=== PATIENT | female | born 1950 | race Caucasian/White ===

== ENCOUNTER 2016-08-27 09:25 | Outpatient (RCR) | payer MEDICARE, BC ==
[~2016-08-27 09:25] MED LIST: ALN70T PO; ATEN-156 PO; LVT.025T PO; SMTR50T PO; SMV20T PO
--- OUTSIDE RECORDS SUMMARY | 2016-08-27 09:28 | XMS REPORT | Continuity of Care Document ---
Author Author [facility] Organization [facility] Address Unknown Phone Unavailable Care Team Providers Care Tubing Mill Operator Name Role Phone PAMELA COBB DO PCP Insurance Providers Payer Name Policy Number Subscriber Name Relationship [facility] [id number] Jacobo Rudolph Self / Same As Patient Problems No known problems or medical conditions. Medications Medication Dose Route Sig Days/Qty Instructions Order Date Discontinued Date Status Sumatriptan Succinate 50 Mg PO DIRECTED 11/22/10 Active Alendronate Sodium 70 Mg PO Tavarez@06 11/22/10 Active Simvastatin 20 Mg PO DAILY 11/22/10 Active Levothyroxine Sodium 1 Each PO DAILY 11/22/10 Active Atenolol 50 Mg PO DAILY 11/22/10 Active Social History No social history. Hospital Discharge Instructions No hospital discharge instructions. Plan of Care No plan of care. Functional Status No functional status results. Allergies, Adverse Reactions, Alerts Allergen Type Severity Reaction Status Last Updated No Known Drug Allergies Active 11/22/10 Immunizations No immunization records. Vital Signs No known vital signs results. Results Test Source Date Result Interp. Ref. Range Comments Alanine Aminotransferase (ALT/SGPT) August 02, 2013 9:04am 29 U/L L 30-65 Albumin August 02, 2013 9:04am 3.9 G/DL N 3.4-5.0 Alkaline Phosphatase August 02, 2013 9:04am 124 U/L N 50-136 Aspartate Amino Transf (AST/SGOT) August 02, 2013 9:04am 14 U/L L 15- 37 BUN/Creatinine Ratio August 02, 2013 9:04am 21 - Basophils # (Auto) August 02, 2013 9:04am 0.0 10^3/uL N 0.0-0.1 Basophils (%) (Auto) August 02, 2013 9:04am 0 % N 0-10 Blood Urea Nitrogen August 02, 2013 9:04am 19 MG/DL H 7-18 Calcium Level August 02, 2013 9:04am 8.9 MG/DL N 8.5-10.1 Carbon Dioxide Level August 02, 2013 9:04am 31 MMOL/L N 21-32 Chloride Level August 02, 2013 9:04am 102 MMOL/L N 101-110 Creatinine August 02, 2013 9:04am 0.9 MG/DL N 0.6-1.3 Eosinophils # (Auto) August 02, 2013 9:04am 0.1 10^3/uL N 0.0-0.3 Eosinophils (%) (Auto) August 02, 2013 9:04am 1 % N 0-10 Glucose Level August 02, 2013 9:04am 100 MG/DL N 74-106 Hematocrit August 02, 2013 9:04am 38 % N 35-52 Hemoglobin August 02, 2013 9:04am 12.7 G/DL N 11.5-16.0 Lymphocytes # (Auto) August 02, 2013 9:04am 1.5 X 10^3 N 1.0-4.0 Lymphocytes (%) (Auto) August 02, 2013 9:04am 19 % N 12-44 Mean Corpuscular Hemoglobin August 02, 2013 9:04am 30 PG N 25-34 Mean Corpuscular Hemoglobin Concent August 02, 2013 9:04am 33 G/DL N 32-36 Mean Corpuscular Volume August 02, 2013 9:04am 91 FL N 80-99 Mean Platelet Volume August 02, 2013 9:04am 8.6 FL N 7.4-10.4 Monocytes # (Auto) August 02, 2013 9:04am 0.6 X 10^3 N 0.0-1.0 Monocytes (%) (Auto) August 02, 2013 9:04am 7 % N 0-12 Neutrophils # (Auto) August 02, 2013 9:04am 5.6 X 10^3 N 1.8-7.8 Neutrophils (%) (Auto) August 02, 2013 9:04am 73 % N 42-75 Platelet Count August 02, 2013 9:04am 186 10^3/uL N 130-400 Potassium Level August 02, 2013 9:04am 4.5 MMOL/L N 3.6-5.0 Prothromb Time International Ratio August 28, 2011 12:00pm 1.6 H 0.8- 1.4 INTERPRETIVE DATASUGGESTED THERAPEUTIC RANGE FOR INR'S : VENOUS THROMBOSIS, PULMONARY EMBOLISM, OR PREVENTION OF SYSTEMIC EMBOLISM (EG. IN ATRIAL FIBRILLATION): 2.0 - 3.0 MECHANICAL PROSTHETIC HEART VALVES: 2.5 - 3.5* *NOTE: INR'S UP TO 4.5 MAY BE NECESSARY IN SELECTED GROUPS OF HIGH RISK PATIENTS. [employer] CONSENSUS CONFERENCE ON ANTITHROMBOTIC THERAPY (2000). Prothrombin Time August 28, 2011 12:00pm 19.0 SEC H 12.2-14.7 Comments to Merchandising Lead: COUMADIN 2.5MG DAILYSpecimen Comment: HH Red Blood Count August 02, 2013 9:04am 4.21 10^6/uL L 4.35-5.85 Red Cell Distribution Width August 02, 2013 9:04am 13.2 % N 10.0- 14.5 Sodium Level August 02, 2013 9:04am 136 MMOL/L N 135-145 TSH [place] Testing April 18, 2013 2:38pm 0.75 UIU/ML N 0.34-5.60 Thyroid Stimulating Hormone (TSH) December 20, 2010 1:45pm 0.72 UIU/ML N 0.34-5.60 PATIENT IN RAD 1ST. Total Bilirubin August 02, 2013 9:04am 0.3 MG/DL N 0.0-1.0 Total Protein August 02, 2013 9:04am 7.4 G/DL N 6.4-8.2 White Blood Count August 02, 2013 9:04am 7.7 10^3/uL N 4.3-11.0 Estimat Glomerular Filtration Rate August 02, 2013 9:04am > 60 - GFR INTERPRETIVE DATA UNITS FOR ESTIMATED GFR (eGFR): mL/min/1.73 M2 REFERENCE RANGE FOR ESTIMATED GFR (eGFR) eGFR NORMAL eGFR >60 MODERATELY DECREASED eGFR 30-59 SEVERLY DECREASED eGFR 15-29 KIDNEY FAILURE <15 (OR DIALYSIS) Procedures No known history of procedures. Encounters Encounter Location Date/Time Discharged Recurring Via [facility] 06/27/14 9:05am
[2016-08-27 09:41] LABS: BASOPHILS % (AUTO) 0 % (0-10); EOSINOPHILS # (AUTO) 0.1 10^3/uL (0.0-0.3); EOSINOPHILS % (AUTO) 1 % (0-10); LYMPHOCYTES # (AUTO) 1.8 X 10^3 (1.0-4.0); LYMPHOCYTES % (AUTO) 20 % (12-44); MEAN CORPUSCULAR HEMOGLOBIN 30 PG (25-34); MEAN CORPUSCULAR HGB CONC 33 G/DL (32-36); MEAN CORPUSCULAR VOLUME 90 FL (80-99); MEAN PLATELET VOLUME 9.6 FL (7.4-10.4); MONOCYTES # (AUTO) 0.6 X 10^3 (0.0-1.0); MONOCYTES % (AUTO) 7 % (0-12); NEUTROPHILS # (AUTO) 6.5 X 10^3 (1.8-7.8); NEUTROPHILS % (AUTO) 72 % (42-75); PLATELET COUNT 212 10^3/uL (130-400); RED CELL DISTRIBUTION WIDTH 13.1 % (10.0-14.5)
[2016-08-27 10:10] LABS: ALANINE AMINOTRANSFERASE 17 U/L (0-55); ALBUMIN 4.3 G/DL (3.2-4.5); ANION GAP 13 MMOL/L (5-14); ASPARTATE AMINO TRANSFERASE 14 U/L (5-34); BILIRUBIN,TOTAL 0.4 MG/DL (0.1-1.0); BLOOD UREA NITROGEN 18 MG/DL (7-18); BUN/CREATININE RATIO 20; CALCIUM 9.7 MG/DL (8.5-10.1); CARBON DIOXIDE 19 MMOL/L (21-32); CHLORIDE 106 MMOL/L (98-107); CREATININE SERUM 0.88 MG/DL (0.60-1.30); GFR ESTIMATED > 60; GLUCOSE 107 MG/DL (70-105); SODIUM 138 MMOL/L (135-145); TOTAL PROTEIN 6.9 G/DL (6.4-8.2)
== END 2016-11-25 | disposition home or self-care (01) ==
LOC: ONC 09:25
PROVIDERS: ATTEND Internal Medicine Hematology & Oncology
DX: C50.412 Malignant neoplasm of upper-outer quadrant of left female breast (principal); E03.9 Hypothyroidism, unspecified; I10 Essential (primary) hypertension; E78.5 Hyperlipidemia, unspecified; H81.09 Meniere's disease, unspecified ear; Z80.9 Family history of malignant neoplasm, unspecified; Z79.899 Other long term (current) drug therapy; Z17.0 Estrogen receptor positive status [ER+]
CPT/HCPCS: 36415; 80053; 84443; 85025; 99213

== ENCOUNTER → 2017-01-06 | Outpatient (CLI) | payer MEDICARE ==
--- OUTSIDE RECORDS SUMMARY | 2017-01-06 13:19 | XMS REPORT | Continuity of Care Document ---
Author Author [facility] Organization [facility] Address Unknown Phone Unavailable Care Team Providers Care Assignment Clerk Name Role Phone PAMELA COBB DO PCP Insurance Providers Payer Name Policy Number Subscriber Name Relationship [facility] [id number] Jacobo Rudolph Self / Same As Patient [...] SELECTED GROUPS OF HIGH RISK PATIENTS. [employer] [place] [employer] CONSENSUS CONFERENCE ON ANTITHROMBOTIC THERAPY (2000). Prothrombin Time August 28, 2011 12:00pm 19.0 SEC H 12.2-14.7 Comments to Oral And Maxillofacial Surgery: COUMADIN 2.5MG DAILYSpecimen Comment: HH Red Blood Count August 02, 2013 9:04am 4.21 10^6/uL L 4.35-5.85 Red Cell Distribution Width August 02, 2013 9:04am 13.2 % N 10.0- 14.5 Sodium Level August 02, 2013 9:04am 136 MMOL/L N 135-145 TSH [place] Testing April 18, 2013 2:38pm 0.75 UIU/ML [...] Encounters Encounter Location Date/Time Discharged Recurring Via [facility] 06/27/14 9:05am
--- NOTE | 2017-01-06 18:35 | Diagnostic Imaging Report ---
EXAMINATION: Digital Mammogram bilateral screening. INDICATION: Screening. COMPARISON: This study was compared to the prior exams of 01/02/2016, 01/01/2015, and 12/30/2013. At this time, there are no current complaints. The current study was also evaluated with a Computer Aided Detection (CAD) system. FINDINGS: The postsurgical changes involving the left breast seen previously are again evident and no different. There are a few benign-appearing calcifications in this region. There are scattered fibroglandular densities in the right breast, which could obscure a lesion. Overall, there has been no significant change. IMPRESSION: There is no evidence for malignancy. ACR BI-RADS Category 1: Negative. Result letter will be mailed to the patient. Note: At least 10% of breast cancer is not imaged by mammography. Dictated by: Dictated on workstation # [id number]
== END ==
LOC: RAD 09:05
PROVIDERS: ATTEND Internal Medicine Hematology & Oncology
DX: Z12.31 Encounter for screening mammogram for malignant neoplasm of breast (principal)
CPT/HCPCS: 77067

== ENCOUNTER 2017-02-25 09:40 | Outpatient (RCR) | payer MEDICARE ==
[2017-02-25 09:48] LABS: BASOPHILS % (AUTO) 0 % (0-10); EOSINOPHILS # (AUTO) 0.1 10^3/uL (0.0-0.3); EOSINOPHILS % (AUTO) 1 % (0-10); LYMPHOCYTES # (AUTO) 2.1 X 10^3 (1.0-4.0); LYMPHOCYTES % (AUTO) 22 % (12-44); MEAN CORPUSCULAR HEMOGLOBIN 30 PG (25-34); MEAN CORPUSCULAR HGB CONC 33 G/DL (32-36); MEAN CORPUSCULAR VOLUME 90 FL (80-99); MEAN PLATELET VOLUME 9.3 FL (7.4-10.4); MONOCYTES # (AUTO) 0.6 X 10^3 (0.0-1.0); MONOCYTES % (AUTO) 6 % (0-12); NEUTROPHILS # (AUTO) 6.5 X 10^3 (1.8-7.8); NEUTROPHILS % (AUTO) 71 % (42-75); PLATELET COUNT 215 10^3/uL (130-400); RED CELL DISTRIBUTION WIDTH 13.4 % (10.0-14.5); WHITE BLOOD COUNT 9.2 10^3/uL (4.3-11.0)
[2017-02-25 10:22] LABS: ALBUMIN 4.2 G/DL (3.2-4.5); BILIRUBIN,TOTAL 0.3 MG/DL (0.1-1.0); CREATININE SERUM 1.18 MG/DL (0.60-1.30); POTASSIUM 4.8 MMOL/L (3.6-5.0); TOTAL PROTEIN 6.9 G/DL (6.4-8.2)
[2017-02-25 10:43] LABS: THYROID STIMULATING HORMONE 0.59 UIU/ML (0.35-4.94)
== END 2017-05-26 | disposition home or self-care (01) ==
LOC: ONC 09:40
PROVIDERS: ATTEND Internal Medicine Hematology & Oncology
DX: C50.412 Malignant neoplasm of upper-outer quadrant of left female breast (principal); E03.9 Hypothyroidism, unspecified; I10 Essential (primary) hypertension; E78.5 Hyperlipidemia, unspecified; H81.09 Meniere's disease, unspecified ear; Z80.9 Family history of malignant neoplasm, unspecified; Z79.899 Other long term (current) drug therapy; Z17.0 Estrogen receptor positive status [ER+]
CPT/HCPCS: 36415; 80053; 84439; 84443; 85025; 99213

== ENCOUNTER 2017-09-02 14:34 | Outpatient (RCR) | payer MEDICARE | END 2017-12-01 | disposition home or self-care (01) | LOC: ONC 14:34 | PROVIDERS: ATTEND Internal Medicine Hematology & Oncology | DX: C50.412 Malignant neoplasm of upper-outer quadrant of left female breast (principal); E03.9 Hypothyroidism, unspecified; I10 Essential (primary) hypertension; E78.5 Hyperlipidemia, unspecified; Z80.9 Family history of malignant neoplasm, unspecified; Z79.899 Other long term (current) drug therapy; Z17.0 Estrogen receptor positive status [ER+] | CPT/HCPCS: 99213 ==

== ENCOUNTER → 2018-01-07 | Outpatient (CLI) | payer MEDICARE ==
--- NOTE | 2018-01-07 18:15 | Diagnostic Imaging Report ---
INDICATION: Routine screening. COMPARISON: Comparison is made with prior mammograms from 01/06/2017 and 01/02/2016. The current study was also evaluated with a Computer Aided Detection (CAD) system. FINDINGS: Scattered fibroglandular densities are identified bilaterally. The area of architectural distortion and postsurgical changes in the upper left breast are stable. There are some associated calcifications present. A nodular density in the retroareolar left breast is stable. No new mass or malignant appearing microcalcifications are seen. The axillae are unremarkable. IMPRESSION: No mammographic features suspicious for malignancy are identified. ACR BI-RADS Category 2: Benign findings. Result letter will be mailed to the patient. Note: At least 10% of breast cancer is not imaged by mammography. Dictated by: Dictated on workstation # [id number]
== END ==
LOC: RAD 10:18
PROVIDERS: ATTEND Internal Medicine Hematology & Oncology
DX: Z12.31 Encounter for screening mammogram for malignant neoplasm of breast (principal)
CPT/HCPCS: 77067

== ENCOUNTER 2018-03-03 13:00 | Outpatient (RCR) | payer MEDICARE | END 2018-06-01 | disposition home or self-care (01) | LOC: ONC 13:00 | PROVIDERS: ATTEND Internal Medicine Hematology & Oncology | DX: C50.412 Malignant neoplasm of upper-outer quadrant of left female breast (principal); E03.9 Hypothyroidism, unspecified; I10 Essential (primary) hypertension; E78.5 Hyperlipidemia, unspecified; Z80.9 Family history of malignant neoplasm, unspecified; Z79.899 Other long term (current) drug therapy; Z17.0 Estrogen receptor positive status [ER+] | CPT/HCPCS: 99213 ==

== ENCOUNTER → 2018-06-09 | Outpatient (CLI) | payer MEDICARE ==
[~2018-06-09] MED LIST changes: +GADOBUTROL 7.5 MMOL/7.5 ML (GADAVIST) VIAL IV ONE
[2018-06-09 11:39] LABS: BUN/CREATININE RATIO 20; CREATININE SERUM 0.83 MG/DL (0.60-1.30); GFR ESTIMATED > 60
--- NOTE | 2018-06-09 13:04 | Diagnostic Imaging Report ---
CLINICAL INDICATION: Patient with hearing loss. EXAM: CT scan of the IACs performed without IV contrast. Coronal reformatted images were created. COMPARISON: None. FINDINGS: Right temporal bone structures: There are areas of sclerosis involving the right mastoid region, which may be related to chronic sinusitis changes. The right mastoid air cells and middle ear regions are otherwise clear and unremarkable. Left temporal bone structures: Wall up left mastoidectomy changes are seen. There is thinning of the posterior wall of the left mastoidectomy cavity noted, which may be from postop changes. There is near-complete consolidation of the residual left mastoid air cells even extending into the inferior aspect of the left mastoidectomy cavity. There is no consolidation or fluid in the upper aspect of the mastoid cavity or in the aditus ad antrum. There are no definite erosive changes seen in the left temporal bone structures, but comparison to prior postop images would help better evaluate. There appears to be a tympanic tube on the left versus small perforation. High-riding bilateral jugular bulbs are noted. Otherwise, the remainder of the bilateral temporal bone structures are unremarkable. The right mastoid air cells are clear. The bilateral IACs, inner ears, middle ears, and external auditory canals are unremarkable. The bilateral oval and round windows are patent. There is no evidence of semicircular canal dehiscence. The visualized temporal bone portions of cranial nerve VII have normal appearance. No evidence of aberrant vascular structures. The vestibular aqueducts have normal appearance bilaterally. The visualized extracranial soft tissues and paranasal sinuses are unremarkable. IMPRESSION: 1: There are wall up left mastoidectomy changes. There is a large amount of near-complete consolidation and/or fluid in the residual left mastoid air cells and predominantly involving the inferior aspect of the left mastoid air cells and left mastoidectomy cavity. There are no definite erosive changes seen, but this would be better evaluated with recent postop temporal bone images for comparison. 2: There are likely chronic bony sinusitis changes with sclerosis of the right mastoid air cells. 3: High-riding bilateral jugular bulbs are noted. 4: Otherwise, the remainder of the temporal bone structures are unremarkable. The bilateral middle ear ossicles are unremarkable. Dictated by: Dictated on workstation # [id number]
--- NOTE | 2018-06-09 13:41 | Diagnostic Imaging Report ---
CLINICAL INDICATION: Patient is preparing for right ear cochlear implant. Patient has history of breast cancer 5 years ago with radiation treatments. Patient has history of left ear decompression. EXAMINATION: MRI of the brain/ IACs performed without and with 7 cc of Gadavist IV contrast. Sequences include sagittal T1 localizer, axial T2, axial flair, axial T1, coronal gradient echo, DWI, ADC map, axial T1 thin, axial T2 thin, coronal T1 thin, axial T2 3D FIESTA, axial T1 post contrast whole brain, coronal T1 fat-sat post IV contrast whole brain, sagittal T1 post IV contrast whole brain, axial T1 post IV contrast thin fat sat, and coronal T1 post IV contrast thin. COMPARISONS: CT scan of the IACs dated 06/09/2018. FINDINGS: TEMPORAL BONE STRUCTURES: There is high T2, low T1 signal fluid within the residual left mass toward air cells. There are wall up left mastoidectomy changes which are best seen on the comparison CT scan of the temporal bone structures. The internal auditory canal, otic capsule, middle ear, and temporal bone structures have normal anatomic appearance and are unremarkable. There is no abnormal fluid in the mastoid air cells seen. The visualized nerves VII and VIII within the IACs bilaterally and cisternal portions have normal appearance. CISTERNAL STRUCTURES: There is no cisternal mass seen. The remainder of the visualized cranial nerves in the basal cistern regions are unremarkable. BRAIN: There is no evidence of acute cerebral infarct, intracranial hemorrhage, or gross mass effect. There is a small area of nonenhancing fat in the right parasagittal subdural region of the posterior right frontal lobe. This is best seen on sagittal T1 post IV contrast sequence series 16, image 17. This lesion demonstrates fat saturation on the coronal T1 fat-sat post IV contrast sequence. This lesion measures 9 mm in greatest dimension which is in the AP dimension. There is no abnormal IV contrast enhancement. The brain parenchymal volume appears appropriate for patient's age. There are multiple focal and patchy areas of high T2 signal white matter changes in both cerebral hemispheres, likely representing chronic small vessel ischemic disease. There is normal gregory-white matter distinction. There is no significant midline shift or herniation. The [place] of [place] vascular structures show no gross abnormality as visualized. The pituitary gland, sella, and suprasellar regions are unremarkable as visualized. There is no evidence of hydrocephalus. The basal cisterns are unremarkable. The skull, extracranial soft tissue, and orbits are unremarkable. There is a small mucus retention cyst in the left maxillary sinus. Temporal bones show no significant abnormality. IMPRESSION: 1: There are wall up left mastoidectomy changes and large amounts of fluid in the residual left mastoid air cells. There is no abnormal IV contrast enhancement or retrocochlear mass seen. The remainder of the bilateral temporal bone structures are unremarkable. 2: Unremarkable MRI of the brain for age with mild chronic small vessel ischemic disease. 3: There is a roughly 9 mm fat containing dural based lesion in the posterior right frontal region which appears benign and demonstrates no IV contrast enhancement. Dictated by: Dictated on workstation # [id number]
== END ==
LOC: RAD 10:52
PROVIDERS: ATTEND Otolaryngology
DX: I67.82 Cerebral ischemia (principal); H95.192 Other disorders following mastoidectomy, left ear; G93.9 Disorder of brain, unspecified; Z85.3 Personal history of malignant neoplasm of breast
CPT/HCPCS: 36415; 70480; 70553; 82565; 84520

== ENCOUNTER 2018-09-01 12:45 | Outpatient (RCR) | payer MEDICARE ==
[~2018-09-01 12:45] MED LIST changes: -GADOBUTROL 7.5 MMOL/7.5 ML (GADAVIST) VIAL IV ONE
[2018-09-01 12:54] LABS: BASOPHILS % (AUTO) 0 % (0-10); EOSINOPHILS # (AUTO) 0.1 10^3/uL (0.0-0.3); EOSINOPHILS % (AUTO) 1 % (0-10); HEMATOCRIT 38 % (35-52); HEMOGLOBIN 12.8 G/DL (11.5-16.0); LYMPHOCYTES # (AUTO) 2.4 X 10^3 (1.0-4.0); LYMPHOCYTES % (AUTO) 29 % (12-44); MEAN CORPUSCULAR HEMOGLOBIN 30 PG (25-34); MEAN CORPUSCULAR HGB CONC 34 G/DL (32-36); MEAN CORPUSCULAR VOLUME 89 FL (80-99); MEAN PLATELET VOLUME 8.9 FL (7.4-10.4); MONOCYTES # (AUTO) 0.6 X 10^3 (0.0-1.0); MONOCYTES % (AUTO) 7 % (0-12); NEUTROPHILS # (AUTO) 5.3 X 10^3 (1.8-7.8); NEUTROPHILS % (AUTO) 63 % (42-75); PLATELET COUNT 222 10^3/uL (130-400); RED BLOOD COUNT 4.26 10^6/uL (4.35-5.85); RED CELL DISTRIBUTION WIDTH 13.3 % (10.0-14.5); WHITE BLOOD COUNT 8.4 10^3/uL (4.3-11.0)
[2018-09-01 13:18] LABS: ALANINE AMINOTRANSFERASE 19 U/L (0-55); ALBUMIN 4.5 GM/DL (3.2-4.5); ALKALINE PHOSPHATASE 80 U/L (40-136); BILIRUBIN,TOTAL 0.3 MG/DL (0.1-1.0); BUN/CREATININE RATIO 19; CALCIUM 10.1 MG/DL (8.5-10.1); CARBON DIOXIDE 26 MMOL/L (21-32); CHLORIDE 102 MMOL/L (98-107); CREATININE SERUM 0.83 MG/DL (0.60-1.30); GFR ESTIMATED > 60; GLUCOSE 102 MG/DL (70-105); POTASSIUM 3.9 MMOL/L (3.6-5.0); SODIUM 139 MMOL/L (135-145); TOTAL PROTEIN 7.2 GM/DL (6.4-8.2)
== END 2018-11-30 | disposition home or self-care (01) ==
LOC: ONC 12:45
PROVIDERS: ATTEND Internal Medicine Hematology & Oncology
DX: C50.412 Malignant neoplasm of upper-outer quadrant of left female breast (principal); E03.9 Hypothyroidism, unspecified; I10 Essential (primary) hypertension; E78.5 Hyperlipidemia, unspecified; Z80.9 Family history of malignant neoplasm, unspecified; Z79.899 Other long term (current) drug therapy; Z17.0 Estrogen receptor positive status [ER+]
CPT/HCPCS: 36415; 80053; 85025; 99213

== ENCOUNTER → 2019-01-07 | Outpatient (CLI) | payer MEDICARE ==
--- NOTE | 2019-01-07 11:09 | Diagnostic Imaging Report ---
INDICATION: History of breast CA. COMPARISON: 01/08/2018 and 01/07/2017. TECHNIQUE: 2D and 3D bilateral screening mammography was performed with CAD. FINDINGS: Scattered fibroglandular densities are identified bilaterally. Post therapeutic changes with architectural distortion in the upper slightly outer left breast are again noted. There has been some increase in dystrophic calcifications at the lumpectomy site since the prior study. The nodular density in the retroareolar left breast is again noted. There are some calcifications in the left breast at posterior depth at the nipple line on the MLO view which may be slightly increasing since the prior exam. These appear to be just posterior to the lumpectomy site on the CC view. Additional views are recommended including magnification views. No new mass is identified. The axillae are unremarkable. IMPRESSION: Slight increase in calcifications in the posterior left breast, as described. Additional views including magnification and ML views are recommended for further evaluation. ACR BI-RADS Category 0: Incomplete. (Needs additional imaging evaluation). Result letter will be mailed to the patient. Note: At least 10% of breast cancer is not imaged by mammography. Dictated by: Dictated on workstation # [id number]
== END ==
LOC: RAD 09:47
PROVIDERS: ATTEND Internal Medicine Hematology & Oncology
DX: Z12.31 Encounter for screening mammogram for malignant neoplasm of breast (principal); C50.412 Malignant neoplasm of upper-outer quadrant of left female breast; H81.03 Meniere's disease, bilateral; E78.00 Pure hypercholesterolemia, unspecified; M81.8 Other osteoporosis without current pathological fracture
CPT/HCPCS: 77067

== ENCOUNTER → 2019-01-13 | Outpatient (CLI) | payer MEDICARE ==
[~2019-01-13] MED LIST changes: +AMLO5TAB9 PO; +ATEN50TA PO; +CA C1TAB70 PO; +CALC-904 PO; +CHOL400C9 PO; +DOCU-143 PO; +FOLI0.8T PO; +FURO20TA4 PO; +HYDR-3812 PO; +LATA2.5D5 OU; +LEVO25TA5 PO; +POTA10TA10 PO; +SIMV20TA3 PO; +TIMO5DRO5 OU
--- NOTE | 2019-01-13 21:28 | Diagnostic Imaging Report ---
EXAMINATION: Unilateral diagnostic left mammogram. The current study was also evaluated with a Computer Aided Detection (CAD) system. INDICATION: Abnormal mammogram. FINDINGS: The screening mammogram performed on 01/07/2019 noted a group of microcalcifications deep in the left breast posterior to the nipple line. These calcifications did seem to have increased in number compared to the previous exam of 01/07/2018. On this study, the compression/magnification views of the area of concern show that there are two groups of microcalcifications in this area. These may be slightly more numerous than on the previous exam. These calcifications do not have a particularly threatening appearance and I do suspect that they are most likely benign. Even so, they are technically indeterminate. Therefore, a stereotactic biopsy will be recommended to exclude malignancy. IMPRESSION: 1. A stereotactic biopsy will be recommended for further evaluation of the indeterminate microcalcifications. 2. These results were discussed with Dr. Shaun Goodwin. ACR BI-RADS Category 4: Suspicious abnormality. Result letter will be mailed to the patient. Note: At least 10% of breast cancer is not imaged by mammography. Dictated by: Dictated on workstation # [id number]
== END ==
LOC: RAD 08:08
PROVIDERS: ATTEND Internal Medicine Hematology & Oncology
DX: R92.0 Mammographic microcalcification found on diagnostic imaging of breast (principal)

== ENCOUNTER 2019-01-17 09:54 | Inpatient (IN) | payer MEDICARE ==
[~2019-01-17] VITALS: Ht 175.3 cm; Wt 79.4 kg
[~2019-01-17 09:54] MED LIST changes: -AMLO5TAB9 PO; -ATEN50TA PO; -CA C1TAB70 PO; -CALC-904 PO; -CHOL400C9 PO; -DOCU-143 PO; -FOLI0.8T PO; -FURO20TA4 PO; -HYDR-3812 PO; -LATA2.5D5 OU; -LEVO25TA5 PO; -POTA10TA10 PO; -SIMV20TA3 PO; -TIMO5DRO5 OU
--- NOTE | 2019-01-17 10:29 | ED Fall/Injury ---
General Chief Complaint: Trauma-Non Activation Stated Complaint: FALL Nursing Triage Note: PT REPORTS FALLING AROUND 0700 THIS MORNING IN THE SHOWER. PT DENIES LOC OF HITTING HEAD. PT COMPLAINING OF MIDDLE-LOWER BACK PAIN AND SOME LEFT SHOULDER PAIN. PT TOOK 1 5/325MG HYDROCODONE AROUND 0900. (DEE GIRON MED STUDENT) History of Present Illness Date Seen by Provider: Jan 17, 2019 Time Seen by Provider: 09:58 Initial Comments Mrs Rudolph is a pleasant 68 year old female presenting to the ED s/p fall. Patient states at approximately 7:00 this am she was getting out of the shower when she slipped on a wet patch and fell back onto the edge of the tub. She struck her left upper back on the tub. She denies dizziness, lightheadedness, or loss of consciousness at the time of the fall. She denies hitting her head, buttock, upper or lower extremities. After the fall she experienced left upper back pain 8/10, as well as shortness of air due to pain with inhalation. She states that at approximately 9:00 am she took one hydrocodone pill for pain, which improved it to 5/10 at rest, 8/10 with movement or deep breath. She has a history of bilateral knee replacement as well as meniere disease. She states that she usually uses a gripping mat in the shower, but did not put it down today, and failed to reach the shower-side railing in time. Location Injury Occurred: at home in [facility] Occurred: this morning (occured at 07:00 this am) Injuries/Pain Location: back (left upper back) Context: slipped (slipped on wet floor stepping out of the shower) Loss of Consciousness: no loss of consciousness Modifying Factors: Worse With Movement, Worse With Other (deep breath) Associated Symptoms (Fall): Shortness of Air (due to pain with inhilation ) ( DEE GIRON MED STUDENT) Allergies and Home Medications Allergies Coded Allergies: No Known Drug Allergies (Unverified , 01/17/19) Home Medications Amlodipine Besylate 5 Mg Tablet, 5 MG PO DAILY, (Reported) Atenolol 50 Mg Tablet, 50 MG PO DAILY, (Reported) Calcium Carb/D3/Magnesium/Zinc 1 Each Tablet, 1 TAB PO DAILY, (Reported) Cholecalciferol (Vitamin D3) 400 Unit Capsule, 400 UNIT PO DAILY, (Reported) Folic Acid 0.8 Mg Tablet, 0.8 MG PO DAILY, (Reported) Furosemide 20 Mg Tablet, 20 MG PO DAILY, (Reported) Latanoprost 2.5 Ml Drops, 1 DROP OU HS, (Reported) Levothyroxine Sodium 25 Mcg Tablet, 25 MCG PO DAILY, (Reported) Potassium Chloride 10 Meq Tablet.er, 10 MEQ PO DAILY, (Reported) Simvastatin 20 Mg Tablet, 20 MG PO HS, (Reported) Timolol Maleate 5 Ml Drops, 1 DROP OU BID, (Reported) Patient Home Medication List Home Medication List Reviewed: Yes (DEE GIRON STUDENT) Review of Systems Review of Systems Constitutional: no symptoms reported Eyes: No Symptoms Reported Ears, Nose, Mouth, Throat: no symptoms reported Respiratory: short of breath Cardiovascular: no symptoms reported Gastrointestinal: no symptoms reported Genitourinary: no symptoms reported : No Musculoskeletal: back pain (left upper back), other (left shoulder pain) Skin: no symptoms reported Psychiatric/Neurological: No Symptoms Reported (DEE GIRON STUDENT) Past Aicnesv-Hneakc-Etpwqn Hx Patient Social History Alcohol Use: Denies Use Recreational Drug Use: No Smoking Status: Never a Smoker Recent Foreign Travel: No Contact w/Someone Who Travel: No Recent Infectious Disease Expo: No Recent Hopitalizations: No (DEE GIRON STUDENT) Seasonal Allergies Seasonal Allergies: No (DEE GIRON) Past Medical History Surgeries: Yes Breast, Eye Surgery, Orthopedic, Thyroidectomy Respiratory: No Cardiac: Yes Hypertension Neurological: No Genitourinary: No Gastrointestinal: No Musculoskeletal: No Endocrine: No HEENT: No Cancer: Yes Breast Psychosocial: No Integumentary: No Blood Disorders: No (DEE GIRON STUDENT) Physical Exam Vital Signs Vital Signs - First Documented 01/17/19 09:58 Temp 97.6 Pulse 74 Resp 16 B/P (MAP) 166/87 (113) Pulse Ox 100 (GIO KAY MD) Vital Signs Capillary Refill : Less Than 3 Seconds (DEE GIRON STUDENT) Height, Weight, BMI Height: 5'9.00" Weight: 175lbs. oz. 79.953326bk; BMI Method:Stated General Appearance: mild distress HEENT: PERRL/EOMI Neck: non-tender, full range of motion, supple Cardiovascular: regular rate, rhythm, no gallop, no murmur Respiratory: crackles (over left upper and middle lobes) Back: normal inspection (no erythema, edema, or abrasions), no CVA tenderness, no vertebral tenderness, other (tenderness to palpation over left upper back) Extremities: normal range of motion (normal through shoulders, elbows, wrists, hips, knees, and ankles), non-tender (non tender to palpation over the shoulders , elbows, wrists, hips, knees, and ankles), normal inspection Neurologic/Psychiatric: alert, normal mood/affect, oriented x 3 Skin: normal color, warm/dry (DEE GIRON MED STUDENT) Progress/Results/Core Measures Results/Orders Lab Results Laboratory Tests Test 01/17/19 12:42 Range/Units White Blood Count 15.3 H 4.3-11.0 10^3/uL Red Blood Count 4.60 4.35-5.85 10^6/uL Hemoglobin 13.3 11.5-16.0 G/DL Hematocrit 42 35-52 % Mean Corpuscular Volume 90 80-99 FL Mean Corpuscular Hemoglobin 29 25-34 PG Mean Corpuscular Hemoglobin Concent 32 32-36 G/DL Red Cell Distribution Width 12.8 10.0-14.5 % Platelet Count 205 130-400 10^3/uL Mean Platelet Volume 9.3 7.4-10.4 FL Neutrophils (%) (Auto) 88 H 42-75 % Lymphocytes (%) (Auto) 8 L 12-44 % Monocytes (%) (Auto) 4 0-12 % Eosinophils (%) (Auto) 0 0-10 % Basophils (%) (Auto) 0 0-10 % Neutrophils # (Auto) 13.4 H 1.8-7.8 X 10^3 Lymphocytes # (Auto) 1.3 1.0-4.0 X 10^3 Monocytes # (Auto) 0.6 0.0-1.0 X 10^3 Eosinophils # (Auto) 0.0 0.0-0.3 10^3/uL Basophils # (Auto) 0.0 0.0-0.1 10^3/uL Neutrophils % (Manual) 86 % Lymphocytes % (Manual) 9 % Monocytes % (Manual) 5 % Eosinophils % (Manual) 0 % Basophils % (Manual) 0 % Band Neutrophils 0 % Blood Morphology Comment NORMAL Sodium Level 137 135-145 MMOL/L Potassium Level 4.1 3.6-5.0 MMOL/L Chloride Level 101 98-107 MMOL/L Carbon Dioxide Level 25 21-32 MMOL/L Anion Gap 11 5-14 MMOL/L Blood Urea Nitrogen 20 H 7-18 MG/DL Creatinine 0.83 0.60-1.30 MG/DL Estimat Glomerular Filtration Rate > 60 BUN/Creatinine Ratio 24 Glucose Level 120 H 70-105 MG/DL Calcium Level 10.5 H 8.5-10.1 MG/DL Corrected Calcium 8.5-10.1 MG/DL Total Bilirubin 0.4 0.1-1.0 MG/DL Aspartate Amino Transf (AST/SGOT) 23 5-34 U/L Alanine Aminotransferase (ALT/SGPT) 17 0-55 U/L Alkaline Phosphatase 94 40-136 U/L Total Protein 7.6 6.4-8.2 GM/DL Albumin 4.8 H 3.2-4.5 GM/DL (GIO KAY MD) My Orders Orders - GIO KAY MD Chest Pa/Lat (2 View) (01/17/19 10:24) Ribs, Left 2-3 Views (01/17/19 10:24) Incentive Spirometry Initial (01/17/19 12:11) Incentive Spirometry (Nursing) Q2H (01/17/19 12:11) Cbc With Automated Diff (01/17/19 12:36) Comprehensive Metabolic Panel (01/17/19 12:36) Ct Chest/Abdomen/Pelvis W (01/17/19 12:36) Manual Differential (01/17/19 12:42) Iohexol Injection (Omnipaque 350 Mg/Ml 1 (01/17/19 13:15) Received Contrast (Contrast Received) (01/17/19 13:15) Ns (Ivpb) (Sodium Chloride 0.9% Ivpb Bag (01/17/19 13:15) (GIO KAY MD) Medications Given in ED Current Medications Medications Dose Ordered Sig/Milton Route Start Time Stop Time Status Last Admin Dose Admin Iohexol 100 ml ONCE ONCE IV 01/17/19 13:15 3/4/19 13:16 DC 01/17/19 13:20 100 ML Sodium Chloride 100 ml ONCE ONCE IV 01/17/19 13:15 01/17/19 13:16 DC 01/17/19 13:20 80 ML (GIO KAY MD) Vital Signs/I&O 01/17/19 09:58 Temp 97.6 Pulse 74 Resp 16 B/P (MAP) 166/87 (113) Pulse Ox 100 (GIO KAY MD) Blood Pressure Mean: 113 Progress Progress Note #1: Time: 12:38 Progress Note Patient was personally seen by me along with Dee Giron, MS4. I agree with his history, assessment, exam, and documentation. In addition to MS4 history, it should be noted patient is also scheduled to have a left breast biopsy performed. She has history of breast cancer and has a lump that needs further evaluation. Exam: Gen.: Alert, oriented, no acute distress HEENT normocephalic and atraumatic Lungs: Faint crackles throughout the left chest, no wheezes, good air movement, normal effort Heart: Regular rate and rhythm without murmur Back: Tenderness to palpation over the left posterior lateral lower chest wall. No visible injury on the skin. Neuro/psych: Alert, oriented, no focal deficits Patient was allowed to take an additional hydrocodone that she had with her. Case was discussed with Dr. Prescott. He requested a CT of the abdomen be performed to evaluate the spleen given the location of fractures in the left posterior chest wall. Labs and CT have been ordered. Progress Note #2: Time: 14:[address] scan viewed by me and report reviewed. There were actually numerous rib fractures identified on CT scan, probably 9 in total. Two of them, ribs 8 and 9 , are segmental fractures. Case was again discussed with Dr. Prescott. Given the quantity of fractures and the fact that to our segmental, admission is appropriate for this patient. Dr. Prescott has graciously accepted the patient and will write admission orders. There was an incidental finding of a thyroid mass as well. This can be evaluated further with ultrasound as well. (GIO KAY MD) Diagnostic Imaging Diagonstic Imaging: Xray Plain Films/CT/US/NM/MRI: chest Comments Chest x-ray viewed by me and report reviewed. See report below: NAME: [facility] REC#: [id number] PT STATUS: REG ER : 1950 PHYSICIAN: GIO KAY MD ADMIT DATE: 01/17/19/ER Signed Date of Exam: 01/17/19 CHEST PA/LAT (2 VIEW) INDICATION: Status post fall earlier in the day in shower. Pain.. TECHNIQUE: Two view chest 10:54 AM CORRELATION STUDY: None FINDINGS: The heart size, mediastinal configuration and pulmonary vasculature are within normal limits. There are displaced multiple left posterior lateral rib fractures involving at least the seventh, eighth and ninth ribs. There is atelectasis or contusion about the left lung base and small left pleural effusion. No definitive pneumothorax. Accentuated thoracic kyphosis and degenerative changes thoracic spine. IMPRESSION: 1. Displaced left posterior lateral rib fracture deformities with associated adjacent atelectasis and/or contusion along with small effusion. No definitive pneumothorax. Dictated by: Dictated on workstation # [id number] Dict: 01/17/19 1113 Trans: 01/17/19 1156 Interpreted by: PHILIP RAMOS DO Electronically signed by: PHILIP RAMOS DO 01/17/19 1156 Diagonstic Imaging: Xray Plain Films/CT/US/NM/MRI: chest Comments Left rib x-rays reviewed by me and report reviewed. See report below: NAME: JACOBO RUDOLPH [facility] REC#: [id number] PT STATUS: REG ER : 1950 PHYSICIAN: GIO KAY MD ADMIT DATE: 01/17/19/ER Signed Date of Exam: 01/17/19 RIBS, LEFT 2-3 VIEWS INDICATION: Status post fall earlier in the day. Pain. TECHNIQUE: 3 views left ribs, 10:56 AM. CORRELATION STUDY: None FINDINGS: There are multiple displaced left, predominantly lateral lower rib fractures. This involves at least the seventh, eighth, ninth and likely 10th ribs. Some of these fractures are displaced slightly greater than the width of the rib. There is what appears to be associated atelectasis or contusion and effusion of the left lung base. No definitive pneumothorax. IMPRESSION: 1. Multiple displaced left lower lateral rib fracture deformities. Associated atelectasis and/or contusion left lung base as well as small pleural effusion. Dictated by: Dictated on workstation # [id number] Dict: 01/17/19 1147 Trans: 01/17/19 1156 Interpreted by: PHILIP RAMOS DO Electronically signed by: PHILIP RAMOS DO 01/17/19 1156 Diagonstic Imaging: CT Plain Films/CT/US/NM/MRI: chest, abdomen, pelvis Comments CT chest, abdomen and pelvis viewed by me and report reviewed. Discussed and images reviewed with the radiologist. Discussed with Dr. Prescott as well. See report below: NAME: JACOBO RUDOLPH [facility] REC#: [id number] PT STATUS: REG ER : 1950 PHYSICIAN: GIO KAY MD ADMIT DATE: 01/17/19/ER Draft Date of Exam:01/17/19 CT CHEST/ABDOMEN/PELVIS W PROCEDURE: CT chest, abdomen, and pelvis with contrast. TECHNIQUE: Multiple contiguous axial images were obtained through the chest, abdomen, and pelvis after the administration of intravenous contrast. INDICATION: Fall with mid and low back pain as well as left shoulder pain. COMPARISON: No prior studies are available for comparison. FINDINGS: CT CHEST: There is a solid-appearing mass arising from the left lobe of the thyroid measuring 3.3 cm AP diameter. Dedicated thyroid ultrasound would be useful on a nonemergent basis for further evaluation. No definite mediastinal hematoma or great vessel injury is seen. No pericardial fluid is identified. Numerous left-sided rib fractures are identified. There are fractures involving left sixth through twelfth ribs. Fractures are noted laterally as well as posteriorly. Segmental fractures appear to involve the eighth and ninth ribs. Several ribs appear to be displaced. There is some small amount of high-density fluid within the left lung base consistent with very small hemothorax. No pneumothorax is seen. Right lung is clear. There is a small amount of subcutaneous gas noted in the tissues adjacent to rib fractures. The right-sided ribs are unremarkable. IMPRESSION: 1. Left sixth through twelfth rib fractures with trace adjacent left hemothorax. No pneumothorax or parenchymal contusion is identified. No mediastinal hematoma or great vessel injury is identified. CT ABDOMEN AND PELVIS: No focal liver or splenic laceration is seen. There is mild dilatation of the gallbladder. There appears to be stone in the region of the gallbladder neck. No biliary duct dilatation is seen. The pancreas is unremarkable. No adrenal mass is detected. Kidneys are unremarkable. Aorta is non-aneurysmal. Bowel loops are normal caliber. There is sigmoid diverticulosis without evidence of acute diverticulitis. Bladder is unremarkable. Bony structures appear nonacute. IMPRESSION: 1. Cholelithiasis and mild gallbladder distention. 2. No evidence of abdominal or pelvic visceral injury. 3. Left thyroid mass. Dedicated thyroid ultrasound on nonemergent basis would be recommended for better characterization. Dictated on workstation # [id number] Dict: 01/17/19 1339 Trans: 01/17/19 1438 [id number] Interpreted by: MARTÍNEZ HERR MD (GIO KAY MD) Departure Communication (Admissions) Time/Spoke to Admitting Phy: 14:18 Dr. Prescott (GIO KAY MD) Impression Primary Impression: Multiple rib fractures Qualified Codes: S22.42XA - Multiple fractures of ribs, left side, initial encounter for closed fracture Additional Impressions: Fall from slipping Qualified Codes: W01.0XXA - Fall on same level from slipping, tripping and stumbling without subsequent striking against object, initial encounter Pulmonary contusion Qualified Codes: S27.321A - Contusion of lung, unilateral, initial encounter Thyroid mass Disposition: 01 HOME, SELF-CARE Condition: Improved Departure-Patient Inst. Decision time for Depature: 12:13 (GIO KAY MD) Referrals: JOSE PRESCOTT MD, ADAM S DO (PCP/Family) Primary Care Physician Patient Instructions: Rib Fractures in Adults Add. Discharge Instructions: Exercise deep breathing with incentive spirometry at least 10 times per hour while awake. Stay ahead of your pain to promote relaxed deep breathing. Use a stool softener such as Colace while on hydrocodone to prevent constipation. Follow-up with either Dr. Prescott later this week for repeat examination. You may additionally follow-up with your primary care provider if you choose. Return to care promptly or call 911 if you have worsening symptoms such as progressive shortness of breath, uncontrolled pain, fever, etc. All discharge instructions reviewed with patient and/or family. Voiced understanding. DEE GIRON STUDENT Jan 17, 2019 10:29 am GIO KAY MD Jan 17, 2019 12:17 pm
--- NOTE | 2019-01-17 11:17 | Diagnostic Imaging Report ---
INDICATION: Status post fall earlier in the day in shower. Pain.. TECHNIQUE: Two view chest 10:54 AM CORRELATION STUDY: None FINDINGS: The heart size, mediastinal configuration and pulmonary vasculature are within normal limits. There are displaced multiple left posterior lateral rib fractures involving at least the seventh, eighth and ninth ribs. There is atelectasis or contusion about the left lung base and small left pleural effusion. No definitive pneumothorax. Accentuated thoracic kyphosis and degenerative changes thoracic spine. IMPRESSION: 1. Displaced left posterior lateral rib fracture deformities with associated adjacent atelectasis and/or contusion along with small effusion. No definitive pneumothorax. Dictated by: Dictated on workstation # [id number]
--- NOTE | 2019-01-17 11:50 | Diagnostic Imaging Report ---
INDICATION: Status post fall earlier in the day. Pain. TECHNIQUE: 3 views left ribs, 10:56 AM. CORRELATION STUDY: None FINDINGS: There are multiple displaced left, predominantly lateral lower rib fractures. This involves at least the seventh, eighth, ninth and likely 10th ribs. Some of these fractures are displaced slightly greater than the width of the rib. There is what appears to be associated atelectasis or contusion and effusion of the left lung base. No definitive pneumothorax. IMPRESSION: 1. Multiple displaced left lower lateral rib fracture deformities. Associated atelectasis and/or contusion left lung base as well as small pleural effusion. Dictated by: Dictated on workstation # [id number]
[2019-01-17] MEDS ORDERED: DOCU-143 PO (12:16)
[2019-01-17] MEDS ORDERED: HYDR-3812 PO (12:16)
--- NOTE | 2019-01-17 12:45 | NUR ---
INCENTIVE SPIROMETRY EDUCATION PROVIDED BY RT.
[2019-01-17 12:50] LABS: BASOPHILS % (AUTO) 0 % (0-10); EOSINOPHILS % (AUTO) 0 % (0-10); HEMATOCRIT 42 % (35-52); HEMOGLOBIN 13.3 G/DL (11.5-16.0); LYMPHOCYTES # (AUTO) 1.3 X 10^3 (1.0-4.0); LYMPHOCYTES % (AUTO) 8 % (12-44); MEAN CORPUSCULAR HEMOGLOBIN 29 PG (25-34); MEAN CORPUSCULAR HGB CONC 32 G/DL (32-36); MEAN CORPUSCULAR VOLUME 90 FL (80-99); MEAN PLATELET VOLUME 9.3 FL (7.4-10.4); MONOCYTES # (AUTO) 0.6 X 10^3 (0.0-1.0); MONOCYTES % (AUTO) 4 % (0-12); NEUTROPHILS # (AUTO) 13.4 X 10^3 (1.8-7.8); NEUTROPHILS % (AUTO) 88 % (42-75); PLATELET COUNT 205 10^3/uL (130-400); RED CELL DISTRIBUTION WIDTH 12.8 % (10.0-14.5); WHITE BLOOD COUNT 15.3 10^3/uL (4.3-11.0)
[2019-01-17 13:07] LABS: ALANINE AMINOTRANSFERASE 17 U/L (0-55); ALBUMIN 4.8 GM/DL (3.2-4.5); ALKALINE PHOSPHATASE 94 U/L (40-136); BILIRUBIN,TOTAL 0.4 MG/DL (0.1-1.0); BUN/CREATININE RATIO 24; CALCIUM 10.5 MG/DL (8.5-10.1); CARBON DIOXIDE 25 MMOL/L (21-32); CHLORIDE 101 MMOL/L (98-107); CREATININE SERUM 0.83 MG/DL (0.60-1.30); GFR ESTIMATED > 60; GLUCOSE 120 MG/DL (70-105); POTASSIUM 4.1 MMOL/L (3.6-5.0); SODIUM 137 MMOL/L (135-145); TOTAL PROTEIN 7.6 GM/DL (6.4-8.2)
[2019-01-17] MEDS ORDERED: NS 100 ML (IVPB) BAG IV ONE (13:15)
[2019-01-17] MEDS ORDERED: RECEIVED CONTRAST 20 ML VIAL IV SCH (13:15)
[2019-01-17] MEDS ORDERED: IOHEXOL 350 MG/ML 100 ML (OMNIPAQUE 350) VIAL IV ONE (13:15)
[2019-01-17 13:28] LABS: BAND NEUTROPHILS 0 %; BASOPHILS % (MANUAL) 0 %; EOSINOPHILS % (MANUAL) 0 %; LYMPHOCYTES % (MANUAL) 9 %; MONOCYTES % (MANUAL) 5 %; NEUTROPHILS % (MANUAL) 86 %; RBC MORPH NORMAL
--- NOTE | 2019-01-17 14:10 | Diagnostic Imaging Report ---
PROCEDURE: CT chest, abdomen, and pelvis with contrast. TECHNIQUE: Multiple contiguous axial images were obtained through the chest, abdomen, and pelvis after the administration of intravenous contrast. INDICATION: Fall with mid and low back pain as well as left shoulder pain. COMPARISON: No prior studies are available for comparison. FINDINGS: CT CHEST: There is a solid-appearing mass arising from the left lobe of the thyroid measuring 3.3 cm AP diameter. Dedicated thyroid ultrasound would be useful on a nonemergent basis for further evaluation. No definite mediastinal hematoma or great vessel injury is seen. No pericardial fluid is identified. Numerous left-sided rib fractures are identified. There are fractures involving left sixth through twelfth ribs. Fractures are noted laterally as well as posteriorly. Segmental fractures appear to involve the eighth and ninth ribs. Several ribs appear to be displaced. There is some small amount of high-density fluid within the left lung base consistent with very small hemothorax. No pneumothorax is seen. Right lung is clear. There is a small amount of subcutaneous gas noted in the tissues adjacent to rib fractures. The right-sided ribs are unremarkable. IMPRESSION: 1. Left sixth through twelfth rib fractures with trace adjacent left hemothorax. No pneumothorax or parenchymal contusion is identified. No mediastinal hematoma or great vessel injury is identified. CT ABDOMEN AND PELVIS: No focal liver or splenic laceration is seen. There is mild dilatation of the gallbladder. There appears to be stone in the region of the gallbladder neck. No biliary duct dilatation is seen. The pancreas is unremarkable. No adrenal mass is detected. Kidneys are unremarkable. Aorta is non-aneurysmal. Bowel loops are normal caliber. There is sigmoid diverticulosis without evidence of acute diverticulitis. Bladder is unremarkable. Bony structures appear nonacute. IMPRESSION: 1. Cholelithiasis and mild gallbladder distention. 2. No evidence of abdominal or pelvic visceral injury. 3. Left thyroid mass. Dedicated thyroid ultrasound on nonemergent basis would be recommended for better characterization. Dictated by: Dictated on workstation # [id number]
--- OUTSIDE RECORDS SUMMARY | 2019-01-17 15:01 | XMS REPORT | Clinical Summary ---
Author Author [facility] Organization [facility] Address Unknown Phone Unavailable Care Team Providers Care Manager State Name Role Phone Luciano Olson PCP Source Comments Some departments are not documenting in the electronic medical record. If you do not see the information that you expected, contact Release of Information in the Health Information Management department at [phone] for further assistance in locating additional records.[facility] Allergies No Known Allergies Medications End Date Status Medication Sig Dispensed Refills Start Date Active simvastatin (ZOCOR) 20 mg Take 20 mg by 0 tablet mouth at bedtime daily. Active levothyroxine (SYNTHROID) Take 25 mcg 0 25 mcg tablet by mouth daily 30 minutes before breakfast. Active atenolol (TENORMIN) 50 mg Take 50 mg by 0 tablet mouth daily. Active amLODIPine (NORVASC) 5 mg Take 5 mg by 0 tablet mouth daily. Active furosemide (LASIX) 20 mg Take 20 mg by 0 tablet mouth every morning. Active anastrozole (ARIMIDEX) 1 Take 1 mg by 0 mg tablet mouth daily. Active latanoprost (XALATAN) Apply 1 drop 0 0.005 % ophthalmic to both eyes solution at bedtime daily. Active potassium chloride SR Take 10 mEq 0 (K-DUR) 10 mEq tablet by mouth daily. Take with a meal and a full glass of water. Active timolol maleate Apply 1 drop 0 (TIMOPTIC) 0.5 % to both eyes 8 ophthalmic drops twice daily. Active calcium carb/mag Take 1 tablet 0 oxide/Cu/zinc by mouth ([id number] daily. -ZINC) tab Active folic acid 0.8 mg cap Take 1 0 capsule by mouth daily. Active cholecalciferol (VITAMIN Take 1,000 0 D-3) 1,000 units tablet Units by mouth daily. Active indomethacin (INDOCIN) 50 Take 50 mg by 0 mg capsule mouth four times daily as needed. Take with food. Active HYDROcodone/acetaminophen Take one 15 tablet 0 (NORCO) 5/325 mg tablet tablet by 8 mouth every 6 hours as needed for pain. Active methylPREDNIsolone Take 21 tablet 0 (MEDROL DOSEPAK) 4 mg medication as 8 tablet directed on package for 6 days. Take with food. Active meclizine (ANTIVERT) 25 Take 25 mg by 0 mg tablet mouth three times daily as needed. Active Problems Problem Noted Date Sensorineural hearing loss, bilateral 06/10/2018 Overview: Added automatically from request for surgery [id number] Encounters Care Team Description Date Type Specialty Sirena Ortiz AUD Sensorineural hearing loss, bilateral 12/01/2018 Clinical Otolaryngology Support from Last 3 Months Immunizations Name Dates Previously Given Next Due Pneumococcal Vaccine 05/31/2018 (Deferred: Other) (23-Silvia Adult) Pneumococcal 05/31/2018 (Deferred: Other) Vaccine(13-[facility] Peds/immunocompromised adult) Social History Date Tobacco Use Types Packs/Day Years Used Passive Smoke Exposure - Never Smoker Smokeless Tobacco: Never Used Alcohol Use Drinks/Week oz/Week Comments No Sex Assigned at Date Recorded Not on file Industry Job Start Date Occupation Not on file Not on file Not on file Travel End Travel History Travel Start No recent travel history available. Last Filed Vital Signs Time Taken Vital Sign Reading 08/25/2018 9:22 AM CDT Blood Pressure 168/90 08/06/2018 12:45 PM CDT Pulse 73 08/06/2018 11:48 AM CDT Temperature 36.7 C (98.1 F) - Respiratory Rate - 08/06/2018 12:45 PM CDT Oxygen Saturation 100% - Inhaled Oxygen - Concentration 08/25/2018 9:22 AM CDT Weight 77.1 kg (170 lb) 08/25/2018 9:22 AM CDT Height 175.3 cm (5' 9") 08/25/2018 9:22 AM CDT Body Mass Index 25.1 Plan of Treatment Health Maintenance Due Date Last Done Comments HEPATITIS C SCREENING 1949 PHYSICAL (COMPREHENSIVE) 1956 EXAM DTAP/TDAP VACCINES (1 - 1967 Tdap) BREAST CANCER SCREENING 1989 COLORECTAL CANCER 1999 SCREENING SHINGLES RECOMBINANT 1999 VACCINE (1 of 2) OSTEOPOROSIS 2014 SCREENING/MONITORING PNEUMONIA (PCV13/PPSV23) 2014 VACCINES (1 of 2 - PCV13) INFLUENZA VACCINE 06/16/2019 Implants Device Identifier Shelf Expiration Date Model / Serial / Lot Implanted Type Area Manufactur er 07/16/2021 CI-1600-04 / [id number] / [id number] Implant Cochlear Hires Ultra Right: Cochlea UNIDENTIFI [employer] Electrode Sterile [place] [facility] [place] [id number] Implanted: Qty: 1 on 08/06/2018 by Don Sanon MD Procedures Comments Procedure Name Priority Date/Time Associated Diagnosis ME PURE TONE AUDIOMETRY Routine 12/01/2018 AIR ONLY from Last 3 Months Results * ME PURE TONE AUDIOMETRY AIR ONLY (12/01/2018) Narrative Performed At Performing Organization Address City/State/Zipcode Phone Number IN CLINIC from Last 3 Months Insurance Payer Benefit Subscriber ID Type Phone Address Plan / Group MEDICARE MEDICARE xxxxxxxxxxx Medicare PART A AND B BCBS [place] BCBS xxxxxxxxxxxx Medicare SUPPLEMENT ([place]) [place] [address] Advance Directives Patient has advance care planning documents on file. For more information, please contact: [facility] [address] [place] [address]
--- OUTSIDE RECORDS SUMMARY | 2019-01-17 15:01 | XMS REPORT | Encounter Summary ---
Author Author [facility] Organization [facility] Address Unknown Phone Unavailable Care Team Providers Care Sketch Artist Name Role Phone Luciaon Olson PCP Reason for Visit * Reason Comments Cochlear Implant Encounter Details Care Team Description Date Type Department Sirena Ortiz AUD Sensorineural hearing loss, bilateral 12/01/2018 Clinical [facility] Support Physicians - ENT [address] [place] [address] Social History Date Tobacco Use Types Packs/Day Years Used Passive Smoke Exposure - Never Smoker Smokeless Tobacco: Never Used Alcohol Use Drinks/Week oz/Week Comments No Sex Assigned at Date Recorded Not on file Industry Job Start Date Occupation Not on file Not on file Not on file Travel End Travel History Travel Start No recent travel history available. as of this encounter Progress Notes * Sirena Ortiz AUD - 12/01/2018 1:30 PM ONCOLOGY PHYSICIAN Jane Rudolph was seen in the clinic today for continued monitoring of her [employer] cochlear implant accompanied by her . Patient History: She started losing her hearing in her 30's and her right ear is her worse- hearing ear. She started wearing hearing aids in 1996, and her right ear has gotten worse more rapidly. She has a tube in her left ear (or possibly an left endolymphatic sac decompression); this was placed by Dr. Vela for Meniere's bilaterally: She did have a history of Meniere's disease, but she doesn't have frequent dizzy bouts any more. Surgical Note: Full insertion via round window Ms. Rudolph returned for routine cochlear implant follow up. She continues to report her rehabilitation in progressing nicely however does note she hears her own voice "in harmony"; this concerns remains today. Three month outcomes were assessed today as well as mapping parameters manipulated. Internal Device Ear Internal Device Initial Stimulation Date Time Post Initial Stimulation Surgeon / Location right Hi Res Ultra 3D / HiFocus ms 08/25/[address] Don Sanon / [facility] Equipment: Ear Processor Serial Number Magnet Strength Processor Condition right Marsha CI [id number]* new right Marsha CI [id number] new accessory Kirby Pen Paired & used with success Implant site: WNL *magnet was reduced to 1 today on primary processor. Back up left at 2 as she lives a distance from clinic. Ms. Rudolph does wear contralateral Siemens hearing aid Fit from outside clinic Programming: (sans contralateral hearing aid) Impedences WNL Given her concern for hearing her own voice in harmony, [employer] Rental Sales Agent conference translator was utilized for mapping. Several parameters were manipulated including creating a map based off NRIs, adjusting IDR, & disabling electrodes however nothing eliminated the harmonizing voice. Familiar map 9 opened and changing filter to standard and microphone to processor rocky only did reduce the harmony some. This map was saved as 12 and placed in her 4th slot. Programmed today: Familiar settings: P1- 9 (omni directional rocky & extended low filter) P2 - 10 (ultrazoom) -- she is interested in this setting however hasn't been in enough background noise to have tried it yet. P3 - 11 (50/50) Kirby Added today: P4 - 12 (copy of 9 - processor only rocky & standard filter) Evaluation of Aural Rehabilitation Status: Start Time: 135pm End Time: 210pm SF thresholds checked and were found to be in expected range (see procedures tab for scan). Test pre operative - binaural hearing aids 3 months - implant only; contra ear open Date Date CNC Words 50% 54% Az Bio (in Quiet) 76% Right aid 11% 92% Left aid 68% AZ Bio (+5 dB SNR) 37% 36% Residual Hearing Check: Pre op TRANSLATOR AND INTERPRETER: Right: 92 dB Left:82 dB Today: Right: NR Left: 82 dB Summary: Ms. Rudolph was seen for continued monitoring of her cochlear implant today. She reports her rehabilitation is progressing nicely; outcomes assessed today confirm this. She is very pleased. She reports she is more confident since implantation engaging in conversations. She does not utilize her Kirby pen often as she does not feel it is needed but is able to use it with success. Clinical Recommendations: Next Visit: 6 month outcomes Patient Recommendations: Ms. Rudolph should return for reprogramming 02/23/19 LOGY PHYSICIAN in this encounter Plan of Treatment Not on fileas of this encounter Procedures Comments Procedure Name Priority Date/Time Associated Diagnosis DC PURE TONE AUDIOMETRY Routine 12/01/2018 AIR ONLY in this encounter Visit Diagnoses Diagnosis Sensorineural hearing loss, bilateral in this encounter
--- OUTSIDE RECORDS SUMMARY | 2019-01-17 15:03 | XMS REPORT | Continuity of Care Document ---
Author Author [facility] Organization [facility] Address Unknown Phone Unavailable Allergies Active Description Code Type Severity Reaction Onset Reported/Identified Relationship to Patient Clinical Status Yes NO KNOWN DRUG ALLERGIES UNKNOWN NO KNOWN DRUG ALLERG Yes No Known Drug Allergies [id number] Drug Allergy Unknown N/A 11/22/2010 Medications Medication Packaging Start Date Stop Date Route Dosage Sig LACTATED RINGERS 1000CC IV BAG INJ ml 06/24/2017 06/25/2017 CONTINUOUSEVERY 0 Hour Problems Date Dx Coded Attending Type Code Diagnosis Diagnosed By 02/23/2014 NORI HERNANDES MD Ot 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 02/23/2014 NORI HERNANDES MD Ot 244.9 HYPOTHYROIDISM NOS 02/23/2014 NORI HERNANDES MD Ot 272.4 HYPERLIPIDEMIA NEC/NOS 02/23/2014 NORI HERNANDES MD Ot 386.00 MENIERE'S DISEASE, UNSPECIFIED 02/23/2014 NORI HERNANDES MD Ot 401.9 HYPERTENSION NOS 02/23/2014 NORI HERNANDES MD Ot V16.9 FAMILY HX-MALIGNANCY NOS 02/23/2014 NORI HERNANDES MD Ot V58.69 OTH MED,LT,CURRENT USE 02/23/2014 NORI HERNANDES MD Ot V86.0 ESTROGEN RECEPTOR POSITIVE STATUS [ER+] 05/30/2014 NORI HERNANDES MD Ot 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 05/30/2014 NORI HERNANDES MD Ot 244.9 HYPOTHYROIDISM NOS 05/30/2014 NORI HERNANDES MD Ot 272.4 HYPERLIPIDEMIA NEC/NOS 05/30/2014 NORI HERNANDES MD Ot 386.00 MENIERE'S DISEASE, UNSPECIFIED 05/30/2014 NORI HERNANDES MD Ot 401.9 HYPERTENSION NOS 05/30/2014 NORI HERNANDES MD Ot V16.9 FAMILY HX-MALIGNANCY NOS 05/30/2014 NORI HERNANDES MD Ot V58.69 OTH MED,LT,CURRENT USE 05/30/2014 NORI HERNANDES MD Ot V86.0 ESTROGEN RECEPTOR POSITIVE STATUS [ER+] 09/25/2014 NORI HERNANDES MD Ot 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 09/25/2014 NORI HERNANDES MD Ot 244.9 HYPOTHYROIDISM NOS 09/25/2014 NORI HERNANDES MD Ot 272.4 HYPERLIPIDEMIA NEC/NOS 09/25/2014 NORI HERNANDES MD Ot 386.00 MENIERE'S DISEASE, UNSPECIFIED 09/25/2014 NORI HERNANDES MD Ot 401.9 HYPERTENSION NOS 09/25/2014 NORI HERNANDES MD Ot V16.9 FAMILY HX-MALIGNANCY NOS 09/25/2014 NORI HERNANDES MD Ot V58.69 OTH MED,LT,CURRENT USE 09/25/2014 NORI HERNANDES MD Ot V86.0 ESTROGEN RECEPTOR POSITIVE STATUS [ER+] 2014 Ot 174.4 2014 Ot 244.9 2014 Ot 272.4 2014 Ot 386.00 2014 Ot 401.9 2014 Ot V16.9 2014 Ot V58.69 2014 Ot V86.0 2014 Ot 174.4 2014 Ot 244.9 2014 Ot 272.4 2014 Ot 386.00 2014 Ot 401.9 2014 Ot V16.9 2014 Ot V58.69 2014 Ot V86.0 10/25/2014 Ot 174.4 10/25/2014 Ot 244.9 10/25/2014 Ot 272.4 10/25/2014 Ot 386.00 10/25/2014 Ot 401.9 10/25/2014 Ot V16.9 10/25/2014 Ot V58.69 10/25/2014 Ot V86.0 12/14/2014 Ot 174.4 12/14/2014 Ot 244.9 12/14/2014 Ot 272.4 12/14/2014 Ot 386.00 12/14/2014 Ot 401.9 12/14/2014 Ot V16.9 12/14/2014 Ot V58.69 12/14/2014 Ot V86.0 12/15/2014 Ot 174.4 12/15/2014 Ot 244.9 12/15/2014 Ot 272.4 12/15/2014 Ot 386.00 12/15/2014 Ot 401.9 12/15/2014 Ot V16.9 12/15/2014 Ot V58.69 12/15/2014 Ot V86.0 01/01/2015 GRETA RODRÍGUEZ, NORI Ricci Ot 174.9 01/01/2015 GRETA RODRÍGUEZ, NORI Ricci Ot 733.00 01/01/2015 GRETA RODRÍGUEZ, NORI Ricci Ot V07.4 01/01/2015 GRETA RODRÍGUEZ, NORI Ricci Ot V82.81 01/01/2015 GRETA RODRÍGUEZ, NORI Ricci Ot 174.9 01/01/2015 Ot 174.4 01/01/2015 Ot 244.9 01/01/2015 Ot 272.4 01/01/2015 Ot 386.00 01/01/2015 Ot 401.9 01/01/2015 Ot V16.9 01/01/2015 Ot V58.69 01/01/2015 Ot V86.0 01/22/2015 Ot 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 01/22/2015 Ot 244.9 HYPOTHYROIDISM NOS 01/22/2015 Ot 272.4 HYPERLIPIDEMIA NEC/NOS 01/22/2015 Ot 386.00 MENIERE'S DISEASE, UNSPECIFIED 01/22/2015 Ot 401.9 HYPERTENSION NOS 01/22/2015 Ot V16.9 FAMILY HX- MALIGNANCY NOS 01/22/2015 Ot V58.69 OTH MED,LT, CURRENT USE 01/22/2015 Ot V86.0 ESTROGEN RECEPTOR POSITIVE STATUS [ER+] 02/12/2015 GRETA RODRÍGUEZ, NORI Ricci Ot 174.4 02/12/2015 GRETA RODRÍGUEZ, NORI Ricci Ot 244.9 02/12/2015 GRETA RODRÍGUEZ, NORI Rcici Ot 272.4 02/12/2015 GRETA RODRÍGUEZ, NORI Ricci Ot 386.00 02/12/2015 GRETA RODRÍGUEZ, NORI Ricci Ot 401.9 02/12/2015 GRETA RODRÍGUEZ, NORI Ricci Ot V16.9 02/12/2015 GRETA RODRÍGUEZ, NORI Ricci Ot V58.69 02/12/2015 GRETA RODRÍGUEZ, NORI Ricci Ot V86.0 02/20/2015 GRETA RODRÍGUEZ, NORI Ricci Ot 174.4 02/20/2015 GRETA RODRÍGUEZ, NORI Ricci Ot 244.9 02/20/2015 GRETA RODRÍGUEZ, NORI Ricci Ot 272.4 02/20/2015 GRETA RODRÍGUEZ, NORI Ricci Ot 386.00 02/20/2015 GRETA RODRÍGUEZ, NORI Ricci Ot 401.9 02/20/2015 GRETA RODRÍGUEZ, NORI Ricci Ot V16.9 02/20/2015 GRETA RODRÍGUEZ, NORI Ricci Ot V58.69 02/20/2015 GRETA RODRÍGUEZ, NORI Ricci Ot V86.0 04/16/2015 ANTHONY LISABILLY Colby SOFTWARE CONFIGURATION ENGINEER Ot 174.4 04/16/2015 ANTHONY SARINA Colby SOFTWARE CONFIGURATION ENGINEER Ot V16.8 04/16/2015 ANTHONY SARINA Colby SOFTWARE CONFIGURATION ENGINEER Ot V58.69 04/16/2015 ANTHONY SARINA S SOFTWARE CONFIGURATION ENGINEER Ot V86.0 05/01/2015 ANTHONY SARINA S SOFTWARE CONFIGURATION ENGINEER Ot 174.4 05/01/2015 ANTHONY SARINA Colby SOFTWARE CONFIGURATION ENGINEER Ot V16.8 05/01/2015 ANTHONY SARINA Colby SOFTWARE CONFIGURATION ENGINEER Ot V58.69 05/01/2015 ANTHONY SARINA Colby SOFTWARE CONFIGURATION ENGINEER Ot V86.0 05/21/2015 GRETA RODRGÍUEZ, NORI Ricci Ot 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 05/21/2015 GRETA RODRÍGUEZ, NORI Ricci Ot 244.9 HYPOTHYROIDISM NOS 05/21/2015 GRETA RODRÍGUEZ, NORI Ricci Ot 272.4 HYPERLIPIDEMIA NEC/NOS 05/21/2015 GRETA RODRÍGUEZ, NORI Ricci Ot 386.00 MENIERE'S DISEASE, UNSPECIFIED 05/21/2015 GRETA RODRÍGUEZ, NORI Ricci Ot 401.9 HYPERTENSION NOS 05/21/2015 GRETA RODRÍGUEZ, NORI Ricci Ot V16.9 FAMILY HX-MALIGNANCY NOS 05/21/2015 GRETA RODRÍGUEZ, NORI Ricci Ot V58.69 OTH MED,LT,CURRENT USE 05/21/2015 GRETA RODRÍGUEZ, NORI Ricci Ot V86.0 ESTROGEN RECEPTOR POSITIVE STATUS [ER+] 08/15/2015 GRETA RODRÍGUEZ, NORI Ricci Ot 174.4 08/15/2015 GRETA RODRÍGUEZ, NORI Ricci Ot 244.9 08/15/2015 GRETA RODRÍGUEZ, NORI Ricci Ot 272.4 08/15/2015 GRETA RODRÍGUEZ, NORI Ricci Ot 386.00 08/15/2015 GRETA RODRÍGUEZ, NORI Ricci Ot 401.9 08/15/2015 GRETA RODRÍGUEZ, NORI Ricci Ot V16.9 08/15/2015 GRETA RODRÍGUEZ, NORI Ricci Ot V58.69 08/15/2015 GRETA RODRÍGUEZ, NORI Ricci Ot V86.0 10/05/2015 GRETA RODRÍGUEZ, NORI Ricci Ot 174.4 10/05/2015 GRETA RODRÍGUEZ, NORI Ricci Ot 244.9 10/05/2015 GRETA RODRÍGUEZ, NORI Ricci Ot 272.4 10/05/2015 GRETA RODRÍGUEZ, NORI Ricci Ot 386.00 10/05/2015 GRETA RODRÍGUEZ, NORI Radhames Ot 401.9 10/05/2015 GRETA RODRÍGUEZ, NORI Ricci Ot V16.9 10/05/2015 GRETA RODRÍGUEZ, NORI Ricci Ot V58.69 10/05/2015 GRETA RODRÍGUEZ, NORI K Ot V86.0 11/02/2015 GRETA RODRÍGUEZ, NORI Radhames Ot C50.419 11/02/2015 GRETA RODRÍGUEZ, NORI Ricci Ot E03.9 11/02/2015 GRETA RODÍRGUEZ, NORI Radhames Ot E78.5 11/02/2015 GRETA RODRÍGUEZ, NORI Ricci Ot H81.09 11/02/2015 GRETA RODRÍGUEZ, NORI Ricci Ot I10 11/02/2015 GRETA RODRÍGUEZ, NORI Ricci Ot Z17.0 11/02/2015 GRETA RODRÍGUEZ, NORI Radhames Ot Z79.899 11/02/2015 GRETA RODRÍGUEZ, NORI Radhames Ot Z80.9 11/07/2015 GRETA RODRÍGUEZ, NORI Ricci Ot C50.419 11/07/2015 GRETA RODRÍGUEZ, NORI Ricci Ot E03.9 11/07/2015 GRETA RODRÍGUEZ, NORI Radhames Ot E78.5 11/07/2015 GRETA RODRÍGUEZ, NORI Ricci Ot H81.09 11/07/2015 GRETA RODRÍGUEZ, NORI Ricci Ot I10 11/07/2015 GRETA RODRÍGUEZ, NORI Ricci Ot Z17.0 11/07/2015 GRETA RODRÍGUEZ, NORI Ricci Ot Z79.899 11/07/2015 GRETA RODRÍGUEZ, NORI Ricci Ot Z80.9 11/20/2015 GRETA RODRÍGUEZ, NORI Ricci Ot 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 11/20/2015 GRETA RODRÍGUEZ, NORI Ricci Ot E03.9 HYPOTHYROIDISM, UNSPECIFIED 11/20/2015 GRETA RODRÍGUEZ, NORI Ricci Ot E78.5 HYPERLIPIDEMIA, UNSPECIFIED 11/20/2015 GRETA RODRÍGUEZ, NORI Ricci Ot H81.09 MENIERE'S DISEASE, UNSPECIFIED EAR 11/20/2015 GRETA RODRÍGUEZ, NORI Ricci Ot I10 ESSENTIAL (PRIMARY) HYPERTENSION 11/20/2015 GRETA RODRÍGUEZ, NORI Ricci Ot Z17.0 ESTROGEN RECEPTOR POSITIVE STATUS [ER+] 11/20/2015 GRETA RODRÍGUEZ, NORI Ricci Ot Z79.899 OTHER LONGTERM (CURRENT) DRUG THERAPY 11/20/2015 GRETA RODRÍGUEZ, NORI Ricci Ot Z80.9 FAMILY HISTORY OF MALIGNANT NEOPLASM, UN 01/02/2016 SARINA CRUZ SOFTWARE CONFIGURATION ENGINEER Ot 174.4 01/02/2016 CRUZSARINA Colby SOFTWARE CONFIGURATION ENGINEER Ot V16.8 01/02/2016 ANTHONYSARINA SOFTWARE CONFIGURATION ENGINEER Ot V58.69 01/02/2016 ANTHONYSARINA SOFTWARE CONFIGURATION ENGINEER Ot V86.0 01/02/2016 GRETA RODRÍGUEZ, NORI Radhames Ot 174.9 01/02/2016 GRETA RODRÍGUEZ, NORI Radhames Ot 733.00 01/02/2016 GRETA RODRÍGUEZ, NORI K Ot V07.4 01/02/2016 GRETA RODRÍGUEZ, NORI K Ot V82.81 01/02/2016 GRETA RODRÍGUEZ, NORI K Ot 174.9 01/02/2016 GRETA RODRÍGUEZ, NORI K Ot 174.9 01/02/2016 GRETA RODRÍGUEZ, NORI K Ot V76.11 01/02/2016 GRETA RODRÍGUEZ, NORI K Ot C50.419 01/02/2016 GRETA RODRÍGUEZ, NORI Ricci Ot E03.9 01/02/2016 GRETA RODRÍGUEZ, NORI Ricci Ot E78.5 01/02/2016 GRETA RODRÍGUEZ, NORI Ricci Ot H81.09 01/02/2016 GRETA RODRÍGUEZ, NORI K Ot I10 01/02/2016 GRETA RODRÍGUEZ, NORI K Ot Z17.0 01/02/2016 GRETA RODRÍGUEZ, NORI K Ot Z79.899 01/02/2016 GRETA RODRÍGUEZ, NORI K Ot Z80.9 01/07/2016 GRETA RODRÍGUEZ, NORI K Ot C50.412 01/07/2016 GRETA RODRÍGUEZ, NORI K Ot Z12.31 01/07/2016 GRETA RODRÍGUEZ, NORI K Ot C50.412 01/07/2016 GRETA RODRÍGUEZ, NORI K Ot Z12.31 01/28/2016 GRETA RODRÍGUZE, NORI K Ot C50.412 01/28/2016 GRETA RODRÍGUEZ, NORI K Ot Z12.31 02/21/2016 GRETA RODRÍGUEZ, NORI K Ot C50.419 02/21/2016 GRETA RODRÍGUEZ, NORI K Ot E03.9 02/21/2016 GRETA RODRÍGUEZ, NORI K Ot E78.5 02/21/2016 GRETA RODRÍGUEZ, NORI Radhames Ot H81.09 02/21/2016 GRETA RODRÍGUEZ, NORI K Ot I10 02/21/2016 GRETA RODRÍGUEZ, NORI K Ot Z17.0 02/21/2016 GRETA RODRÍGUEZ, NORI K Ot Z79.899 02/21/2016 GRETA RODRÍGUEZ, NORI K Ot Z80.9 02/28/2016 GRETA RODRÍGUEZ, NORI K Ot C50.419 02/28/2016 GRETA RODRÍGUEZ, NORI Ricci Ot E03.9 02/28/2016 GRETA RODRÍGUEZ, NORI Ricci Ot E78.5 02/28/2016 GRETA RODRÍGUEZ, NORI Ricci Ot H81.09 02/28/2016 GRETA RODRÍGUEZ, NORI Ricci Ot I10 02/28/2016 GRETA RODRÍGUEZ, NORI Ricci Ot Z17.0 02/28/2016 GRETA RODRÍGUEZ, NORI Ricci Ot Z79.899 02/28/2016 GRETA RODRÍGUEZ, NORI Rcici Ot Z80.9 04/08/2016 GRETA RODRÍGUEZ, NORI Ricci Ot C50.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 04/08/2016 GRETA RODRÍGUEZ, NORI Ricci Ot E03.9 HYPOTHYROIDISM, UNSPECIFIED 04/08/2016 GRETA RODRÍGUEZ, NORI Ricci Ot E78.5 HYPERLIPIDEMIA, UNSPECIFIED 04/08/2016 GRETA RODRÍGUEZ, NORI Ricci Ot H81.09 MENIERE'S DISEASE, UNSPECIFIED EAR 04/08/2016 GRETA RODRÍGUEZ, NORI Ricci Ot I10 ESSENTIAL (PRIMARY) HYPERTENSION 04/08/2016 NORI HERNANDES MD Ot Z17.0 ESTROGEN RECEPTOR POSITIVE STATUS [ER+] 04/08/2016 GRETA RODRÍGUEZ, NORI Ricci Ot Z79.899 OTHER GRAVITY PROSPECTING OPERATOR (CURRENT) DRUG THERAPY 04/08/2016 GRETA RODRÍGUEZ, NORI Ricci Ot Z80.9 FAMILY HISTORY OF MALIGNANT NEOPLASM, UN 04/16/2016 GRETA RODRÍGUEZ, NORI Ricci Ot C50.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 04/16/2016 NORI HERNANDES MD Ot E03.9 HYPOTHYROIDISM, UNSPECIFIED 04/16/2016 GRETA RODRÍGUEZ, NORI Ricci Ot E78.5 HYPERLIPIDEMIA, UNSPECIFIED 04/16/2016 GRETA RODRÍGUEZ, NORI Ricci Ot H81.09 MENIERE'S DISEASE, UNSPECIFIED EAR 04/16/2016 GRETA RODRÍGUEZ, NORI Ricci Ot I10 ESSENTIAL (PRIMARY) HYPERTENSION 04/16/2016 GRETA RODRÍGUEZ, NORI Ricci Ot Z17.0 ESTROGEN RECEPTOR POSITIVE STATUS [ER+] 04/16/2016 GRETA RODRÍGUEZ, NORI Ricci Ot Z79.899 OTHER GRAVITY PROSPECTING OPERATOR (CURRENT) DRUG THERAPY 04/16/2016 GRETA RODRÍGUEZ, NORI Ricci Ot Z80.9 FAMILY HISTORY OF MALIGNANT NEOPLASM, UN 05/27/2016 GRETA RODRÍGUEZ, NORI Ricci Ot C50.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 05/27/2016 NORI HERNANDES MD Ot E03.9 HYPOTHYROIDISM, UNSPECIFIED 05/27/2016 NORI HERNANDES MD Ot E78.5 HYPERLIPIDEMIA, UNSPECIFIED 05/27/2016 NORI HERNANDES MD Ot H81.09 MENIERE'S DISEASE, UNSPECIFIED EAR 05/27/2016 NORI HERNANDES MD Ot I10 ESSENTIAL (PRIMARY) HYPERTENSION 05/27/2016 NORI HERNANDES MD Ot Z17.0 ESTROGEN RECEPTOR POSITIVE STATUS [ER+] 05/27/2016 NORI HERNANDES MD Ot Z79.899 OTHER LONGTERM (CURRENT) DRUG THERAPY 05/27/2016 NORI HERNANDES MD Ot Z80.9 FAMILY HISTORY OF MALIGNANT NEOPLASM, UN 08/28/2016 NORI HERNANDES MD Ot C50.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 08/28/2016 NORI HERNANDES MD Ot E03.9 HYPOTHYROIDISM, UNSPECIFIED 08/28/2016 NORI HERNANDES MD Ot E78.5 HYPERLIPIDEMIA, UNSPECIFIED 08/28/2016 NORI HERNANDES MD Ot H81.09 MENIERE'S DISEASE, UNSPECIFIED EAR 08/28/2016 NORI HERNANDES MD Ot I10 ESSENTIAL (PRIMARY) HYPERTENSION 08/28/2016 NORI HERNANDES MD Ot Z17.0 ESTROGEN RECEPTOR POSITIVE STATUS [ER+] 08/28/2016 NORI HERNANDES MD Ot Z79.899 OTHER GRAVITY PROSPECTING OPERATOR (CURRENT) DRUG THERAPY 08/28/2016 NORI HERNANDES MD Ot Z80.9 FAMILY HISTORY OF MALIGNANT NEOPLASM, UN 09/04/2016 SARINA CRUZ SOFTWARE CONFIGURATION ENGINEER Ot 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 09/04/2016 SARINA CRUZ SOFTWARE CONFIGURATION ENGINEER Ot V16.8 FAMILY HX-MALIGNANCY NEC 09/04/2016 SARINA CRUZ SOFTWARE CONFIGURATION ENGINEER Ot V58.69 OTH MED,LT,CURRENT USE 09/04/2016 SARINA CRUZ SOFTWARE CONFIGURATION ENGINEER Ot V86.0 ESTROGEN RECEPTOR POSITIVE STATUS [ER+] 09/04/2016 NORI HERNANDES MD Ot 174.9 MALIGN NEOPL BREAST NOS 09/04/2016 NORI HERNANDES MD Ot 733.00 OSTEOPOROSIS NOS 09/04/2016 NORI HERNANDES MD Ot V07.4 HORMONE REPLACEMENT THERAPY (POSTMENOPAU 09/04/2016 NORI HERNANDES MD Ot V82.81 SCREENING FOR OSTEOPOROSIS 09/04/2016 NORI HERNANDES MD Ot 174.9 MALIGN NEOPL BREAST NOS 09/04/2016 NORI HERNANDES MD Ot 174.9 MALIGN NEOPL BREAST NOS 09/04/2016 NORI HERNANDES MD, Ot V76.11 SCRN MAMMO-HIGH RISK PT, MALIGNANT NEOPL 09/04/2016 NORI HERNANDES MD, Ot C50.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 09/04/2016 NORI HERNANDES MD, Ot Z12.31 ENCNTR SCREEN MAMMOGRAM FOR MALIGNANT NE 09/04/2016 NORI HERNANDES MD, Ot C50.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 09/04/2016 NORI HERNANDES MD, Ot E03.9 HYPOTHYROIDISM, UNSPECIFIED 09/04/2016 NORI HERNANDES MD, Ot E78.5 HYPERLIPIDEMIA, UNSPECIFIED 09/04/2016 NORI HERNANDES MD, Ot H81.09 MENIERE'S DISEASE, UNSPECIFIED EAR 09/04/2016 ONRI HERNANDES MD, Ot I10 ESSENTIAL (PRIMARY) HYPERTENSION 09/04/2016 NORI HERNANDES MD, Ot Z17.0 ESTROGEN RECEPTOR POSITIVE STATUS [ER+] 09/04/2016 NORI HERNANDES MD, Ot Z79.899 OTHER LONGTERM (CURRENT) DRUG THERAPY 09/04/2016 NORI HERNANDES MD, Ot Z80.9 FAMILY HISTORY OF MALIGNANT NEOPLASM, UN 09/04/2016 NORI HERNANDES MD, Ot M81.8 OTHER OSTEOPOROSIS WITHOUT CURRENT PATHO 09/04/2016 NORI HERNANDES MD, Ot M81.8 OTHER OSTEOPOROSIS WITHOUT CURRENT PATHO 09/04/2016 NORI HERNANDES MD, Ot C50.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 09/04/2016 NORI HERNANDES MD, Ot M81.8 OTHER OSTEOPOROSIS WITHOUT CURRENT PATHO 09/04/2016 NORI HERNANDES MD, Ot Z79.811 GRAVITY PROSPECTING OPERATOR (CURRENT) USE OF AROMATASE INH 09/09/2016 NORI HERNANDES MD, Ot C50.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 09/09/2016 NORI HERNANDES MD, Ot M81.8 OTHER OSTEOPOROSIS WITHOUT CURRENT PATHO 09/09/2016 NORI HERNANDES MD, Ot Z79.811 LONGTERM (CURRENT) USE OF AROMATASE INH 09/25/2016 NORI HERNANDES MD, Ot C50.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 09/25/2016 NORI HERNANDES MD, Ot M81.8 OTHER OSTEOPOROSIS WITHOUT CURRENT PATHO 09/25/2016 NORI HERNANDES MD, Ot Z79.811 GRAVITY PROSPECTING OPERATOR (CURRENT) USE OF AROMATASE INH 10/14/2016 GRETA RODRÍGUEZ, NORI Ricci Ot C50.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 10/14/2016 NORI HERNANDES MD, Ot E03.9 HYPOTHYROIDISM, UNSPECIFIED 10/14/2016 NORI HERNANDES MD Ot E78.5 HYPERLIPIDEMIA, UNSPECIFIED 10/14/2016 NORI HERNANDES MD Ot H81.09 MENIERE'S DISEASE, UNSPECIFIED EAR 10/14/2016 NORI HERNANDES MD Ot I10 ESSENTIAL (PRIMARY) HYPERTENSION 10/14/2016 NORI HERNANDES MD Ot Z17.0 ESTROGEN RECEPTOR POSITIVE STATUS [ER+] 10/14/2016 NORI HERNANDES MD Ot Z79.899 OTHER LONGTERM (CURRENT) DRUG THERAPY 10/14/2016 NORI HERNANDES MD Ot Z80.9 FAMILY HISTORY OF MALIGNANT NEOPLASM, UN 10/15/2016 NORI HERNANDES MD, Ot C50.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 10/15/2016 NORI HERNANDES MD, Ot E03.9 HYPOTHYROIDISM, UNSPECIFIED 10/15/2016 NORI HERNANDES MD, Ot E78.5 HYPERLIPIDEMIA, UNSPECIFIED 10/15/2016 NORI HERNANDES MD Ot H81.09 MENIERE'S DISEASE, UNSPECIFIED EAR 10/15/2016 NORI HERNANDES MD Ot I10 ESSENTIAL (PRIMARY) HYPERTENSION 10/15/2016 NORI HERNANDES MD Ot Z17.0 ESTROGEN RECEPTOR POSITIVE STATUS [ER+] 10/15/2016 NORI HERNANDES MD Ot Z79.899 OTHER GRAVITY PROSPECTING OPERATOR (CURRENT) DRUG THERAPY 10/15/2016 NORI HERNANDES MD Ot Z80.9 FAMILY HISTORY OF MALIGNANT NEOPLASM, UN 11/25/2016 NORI HERNANDES MD, Ot C50.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 11/25/2016 NORI HERNANDES MD Ot E03.9 HYPOTHYROIDISM, UNSPECIFIED 11/25/2016 NORI HERNANDES MD Ot E78.5 HYPERLIPIDEMIA, UNSPECIFIED 11/25/2016 NORI HERNANDES MD Ot H81.09 MENIERE'S DISEASE, UNSPECIFIED EAR 11/25/2016 NORI HERNANDES MD Ot I10 ESSENTIAL (PRIMARY) HYPERTENSION 11/25/2016 NORI HERNANDES MD Ot Z17.0 ESTROGEN RECEPTOR POSITIVE STATUS [ER+] 11/25/2016 NORI HERNANDES MD Ot Z79.899 OTHER LONGTERM (CURRENT) DRUG THERAPY 11/25/2016 GRETA RODRÍGUEZ, NORI Ricci Ot Z80.9 FAMILY HISTORY OF MALIGNANT NEOPLASM, UN 01/06/2017 Ot Z12.31 ENCNTR SCREEN MAMMOGRAM FOR MALIGNANT NE 01/07/2017 Ot Z12.31 ENCNTR SCREEN MAMMOGRAM FOR MALIGNANT NE 01/07/2017 Ot Z12.31 ENCNTR SCREEN MAMMOGRAM FOR MALIGNANT NE 01/12/2017 Ot Z12.31 ENCNTR SCREEN MAMMOGRAM FOR MALIGNANT NE 01/27/2017 Ot Z12.31 ENCNTR SCREEN MAMMOGRAM FOR MALIGNANT NE 02/26/2017 GRETA RODRÍGUEZ, NORI Ricci Ot C50.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 02/26/2017 NORI HERNANDES MD Ot E03.9 HYPOTHYROIDISM, UNSPECIFIED 02/26/2017 NORI HERNANDES MD Ot E78.5 HYPERLIPIDEMIA, UNSPECIFIED 02/26/2017 GRETA RODRÍGUEZ, NORI Ricci Ot H81.09 MENIERE'S DISEASE, UNSPECIFIED EAR 02/26/2017 NORI HERNANDES MD Ot I10 ESSENTIAL (PRIMARY) HYPERTENSION 02/26/2017 NORI HERNANDES MD Ot Z17.0 ESTROGEN RECEPTOR POSITIVE STATUS [ER+] 02/26/2017 NORI HERNANDES MD Ot Z79.899 OTHER LONGTERM (CURRENT) DRUG THERAPY 02/26/2017 NORI HERNANDES MD Ot Z80.9 FAMILY HISTORY OF MALIGNANT NEOPLASM, UN 04/08/2017 NORI HERNANDES MD Ot C50.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 04/08/2017 NORI HERNANDES MD Ot E03.9 HYPOTHYROIDISM, UNSPECIFIED 04/08/2017 NORI HERNANDES MD Ot E78.5 HYPERLIPIDEMIA, UNSPECIFIED 04/08/2017 GRETA RODRÍGUEZ, NORI Ricci Ot H81.09 MENIERE'S DISEASE, UNSPECIFIED EAR 04/08/2017 NORI HERNANDES MD Ot I10 ESSENTIAL (PRIMARY) HYPERTENSION 04/08/2017 NORI HERNANDES MD Ot Z17.0 ESTROGEN RECEPTOR POSITIVE STATUS [ER+] 04/08/2017 NORI HERNANDES MD Ot Z79.899 OTHER LONGTERM (CURRENT) DRUG THERAPY 04/08/2017 NORI HERNANDES MD Ot Z80.9 FAMILY HISTORY OF MALIGNANT NEOPLASM, UN 04/15/2017 NORI HERNANDES MD Ot C50.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 04/15/2017 NORI HERNANDES MD Ot E03.9 HYPOTHYROIDISM, UNSPECIFIED 04/15/2017 NORI HERNANDES MD Ot E78.5 HYPERLIPIDEMIA, UNSPECIFIED 04/15/2017 GRETA RODRÍGUEZ, NORI Ricci Ot H81.09 MENIERE'S DISEASE, UNSPECIFIED EAR 04/15/2017 NORI HERNANDES MD Ot I10 ESSENTIAL (PRIMARY) HYPERTENSION 04/15/2017 NORI HERNANDES MD Ot Z17.0 ESTROGEN RECEPTOR POSITIVE STATUS [ER+] 04/15/2017 NORI HERNANDES MD Ot Z79.899 OTHER GRAVITY PROSPECTING OPERATOR (CURRENT) DRUG THERAPY 04/15/2017 NORI HERNANDES MD Ot Z80.9 FAMILY HISTORY OF MALIGNANT NEOPLASM, UN 05/26/2017 GRETA RODRÍGUEZ, NORI Ricci Ot C50.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 05/26/2017 NORI HERNANDES MD Ot E03.9 HYPOTHYROIDISM, UNSPECIFIED 05/26/2017 NORI HERNANDES MD Ot E78.5 HYPERLIPIDEMIA, UNSPECIFIED 05/26/2017 NORI HERNANDES MD Ot H81.09 MENIERE'S DISEASE, UNSPECIFIED EAR 05/26/2017 NORI HERNANDES MD Ot I10 ESSENTIAL (PRIMARY) HYPERTENSION 05/26/2017 NORI HERNANDES MD Ot Z17.0 ESTROGEN RECEPTOR POSITIVE STATUS [ER+] 05/26/2017 NORI HERNANDES MD Ot Z79.899 OTHER LONGTERM (CURRENT) DRUG THERAPY 05/26/2017 NORI HERNANDES MD Ot Z80.9 FAMILY HISTORY OF MALIGNANT NEOPLASM, UN 05/27/2017 GRETA RODRÍGUEZ, NORI Ricci Ot C50.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 05/27/2017 NORI HERNANDES MD Ot E03.9 HYPOTHYROIDISM, UNSPECIFIED 05/27/2017 NORI HERNANDES MD Ot E78.5 HYPERLIPIDEMIA, UNSPECIFIED 05/27/2017 NORI HERNANDES MD Ot H81.09 MENIERE'S DISEASE, UNSPECIFIED EAR 05/27/2017 NORI HERNANDES MD Ot I10 ESSENTIAL (PRIMARY) HYPERTENSION 05/27/2017 NORI HERNANDES MD Ot Z17.0 ESTROGEN RECEPTOR POSITIVE STATUS [ER+] 05/27/2017 NORI HERNANDES MD Ot Z79.899 OTHER GRAVITY PROSPECTING OPERATOR (CURRENT) DRUG THERAPY 05/27/2017 NORI HERNANDES MD Ot Z80.9 FAMILY HISTORY OF MALIGNANT NEOPLASM, UN 06/24/2017 Adonay Gunter W 562.12 DIVERTICULOSIS OF COLON WITH HEMORRHAGE 06/24/2017 Adonay Gunter K57.30 DVRTCLOS OF LG INT W/O PERFORATION OR ABSCESS W/O BLEEDING 06/24/2017 Adonay Gunter V76.51 SCREENING FOR MALIGNANT NEOPLASMS OF COLON 06/24/2017 Adonay Gunter A Z12.11 ENCOUNTER FOR SCREENING FOR MALIGNANT NEOPLASM OF COLON 09/03/2017 IMELDA TABARES MD Ot C50.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 09/03/2017 IMELDA TABARES MD Ot E03.9 HYPOTHYROIDISM, UNSPECIFIED 09/03/2017 IMELDA TABARES MD Ot E78.5 HYPERLIPIDEMIA, UNSPECIFIED 09/03/2017 IMELDA TABARES MD Ot I10 ESSENTIAL (PRIMARY) HYPERTENSION 09/03/2017 IMELDA TABARES MD Ot Z17.0 ESTROGEN RECEPTOR POSITIVE STATUS [ER+] 09/03/2017 IMELDA TABARES MD Ot Z79.899 OTHER GRAVITY PROSPECTING OPERATOR (CURRENT) DRUG THERAPY 09/03/2017 IMELDA TABARES MD Ot Z80.9 FAMILY HISTORY OF MALIGNANT NEOPLASM, UN 10/09/2017 IMELDA TABARES MD Ot C50.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 10/09/2017 IMELDA TABARES MD Ot E03.9 HYPOTHYROIDISM, UNSPECIFIED 10/09/2017 IMELDA TABARES MD Ot E78.5 HYPERLIPIDEMIA, UNSPECIFIED 10/09/2017 IMELDA TABARES MD Ot I10 ESSENTIAL (PRIMARY) HYPERTENSION 10/09/2017 IMELDA TABARES MD Ot Z17.0 ESTROGEN RECEPTOR POSITIVE STATUS [ER+] 10/09/2017 IMELDA TABARES MD Ot Z79.899 OTHER LONGTERM (CURRENT) DRUG THERAPY 10/09/2017 IMELDA TABARES MD Ot Z80.9 FAMILY HISTORY OF MALIGNANT NEOPLASM, UN 10/14/2017 IMELDA TABARES MD Ot C50.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 10/14/2017 IMELDA TABARES MD Ot E03.9 HYPOTHYROIDISM, UNSPECIFIED 10/14/2017 IMELDA TABARES MD Ot E78.5 HYPERLIPIDEMIA, UNSPECIFIED 10/14/2017 IMELDA TABARES MD Ot I10 ESSENTIAL (PRIMARY) HYPERTENSION 10/14/2017 IMELDA TABARES MD Ot Z17.0 ESTROGEN RECEPTOR POSITIVE STATUS [ER+] 10/14/2017 IMELDA TABARES MD Ot Z79.899 OTHER LONGTERM (CURRENT) DRUG THERAPY 10/14/2017 IMELDA TABARES MD Ot Z80.9 FAMILY HISTORY OF MALIGNANT NEOPLASM, UN 12/01/2017 IMELDA TABARES MD Ot C50.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 12/01/2017 IMELDA TABARES MD Ot E03.9 HYPOTHYROIDISM, UNSPECIFIED 12/01/2017 IMELDA TABARES MD Ot E78.5 HYPERLIPIDEMIA, UNSPECIFIED 12/01/2017 IMELDA TABARES MD Ot I10 ESSENTIAL (PRIMARY) HYPERTENSION 12/01/2017 IMELDA TABARES MD Ot Z17.0 ESTROGEN RECEPTOR POSITIVE STATUS [ER+] 12/01/2017 IMELDA TABARES MD Ot Z79.899 OTHER LONGTERM (CURRENT) DRUG THERAPY 12/01/2017 IMELDA TABARES MD Ot Z80.9 FAMILY HISTORY OF MALIGNANT NEOPLASM, UN 01/08/2018 IMELDA TABARES MD Ot Z12.31 ENCNTR SCREEN MAMMOGRAM FOR MALIGNANT NE 01/08/2018 IMELDA TABARES MD Ot Z12.31 ENCNTR SCREEN MAMMOGRAM FOR MALIGNANT NE 02/02/2018 IMELDA TABARES MD Ot Z12.31 ENCNTR SCREEN MAMMOGRAM FOR MALIGNANT NE 03/09/2018 IMELDA TABARES MD Ot C50.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 03/09/2018 IMELDA TABARES MD Ot E03.9 HYPOTHYROIDISM, UNSPECIFIED 03/09/2018 IMELDA TABARES MD Ot E78.5 HYPERLIPIDEMIA, UNSPECIFIED 03/09/2018 IMELDA TABARES MD Ot I10 ESSENTIAL (PRIMARY) HYPERTENSION 03/09/2018 IMELDA TABARES MD Ot Z17.0 ESTROGEN RECEPTOR POSITIVE STATUS [ER+] 03/09/2018 IMELDA TABARES MD Ot Z79.899 OTHER LONGTERM (CURRENT) DRUG THERAPY 03/09/2018 IMELDA TABARES MD Ot Z80.9 FAMILY HISTORY OF MALIGNANT NEOPLASM, UN 04/06/2018 IMELDA TABARES MD Ot C50.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 04/06/2018 IMELDA TABARES MD Ot E03.9 HYPOTHYROIDISM, UNSPECIFIED 04/06/2018 IMELDA TABARES MD Ot E78.5 HYPERLIPIDEMIA, UNSPECIFIED 04/06/2018 IMELDA TABARES MD Ot I10 ESSENTIAL (PRIMARY) HYPERTENSION 04/06/2018 IMELDA TABARES MD Ot Z17.0 ESTROGEN RECEPTOR POSITIVE STATUS [ER+] 04/06/2018 IMELDA TABARES MD Ot Z79.899 OTHER GRAVITY PROSPECTING OPERATOR (CURRENT) DRUG THERAPY 04/06/2018 IMELDA TABARES MD Ot Z80.9 FAMILY HISTORY OF MALIGNANT NEOPLASM, UN 04/14/2018 IMELDA TABARES MD Ot C50.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 04/14/2018 IMELDA TABARES MD Ot E03.9 HYPOTHYROIDISM, UNSPECIFIED 04/14/2018 IMELDA TABARES MD Ot E78.5 HYPERLIPIDEMIA, UNSPECIFIED 04/14/2018 MARIAELENA TABARES MDNER Ot I10 ESSENTIAL (PRIMARY) HYPERTENSION 04/14/2018 IMELDA TABARES MD Ot Z17.0 ESTROGEN RECEPTOR POSITIVE STATUS [ER+] 04/14/2018 IMELDA TABARES MD Ot Z79.899 OTHER LONGTERM (CURRENT) DRUG THERAPY 04/14/2018 IMELDA TABARES MD Ot Z80.9 FAMILY HISTORY OF MALIGNANT NEOPLASM, UN 06/01/2018 IMELDA TABARES MD Ot C50.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 06/01/2018 IMELDA TABARES MD Ot E03.9 HYPOTHYROIDISM, UNSPECIFIED 06/01/2018 IMELDA TABARES MD Ot E78.5 HYPERLIPIDEMIA, UNSPECIFIED 06/01/2018 IMELDA TABARES MD Ot I10 ESSENTIAL (PRIMARY) HYPERTENSION 06/01/2018 IMELDA TABARES MD Ot Z17.0 ESTROGEN RECEPTOR POSITIVE STATUS [ER+] 06/01/2018 IMELDA TABARES MD Ot Z79.899 OTHER LONGTERM (CURRENT) DRUG THERAPY 06/01/2018 IMELDA TABARES MD Ot Z80.9 FAMILY HISTORY OF MALIGNANT NEOPLASM, UN 06/02/2018 IMELDA TABARES MD Ot C50.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 06/02/2018 IMELDA TABARES MD Ot E03.9 HYPOTHYROIDISM, UNSPECIFIED 06/02/2018 IMELDA TABARES MD Ot E78.5 HYPERLIPIDEMIA, UNSPECIFIED 06/02/2018 MARIAELENA TABARES MDNER Ot I10 ESSENTIAL (PRIMARY) HYPERTENSION 06/02/2018 IMELDA TABARES MD Ot Z17.0 ESTROGEN RECEPTOR POSITIVE STATUS [ER+] 06/02/2018 IMELDA TABARES MD Ot Z79.899 OTHER GRAVITY PROSPECTING OPERATOR (CURRENT) DRUG THERAPY 06/02/2018 IMELDA TABARES MD Ot Z80.9 FAMILY HISTORY OF MALIGNANT NEOPLASM, UN 06/07/2018 IMELDA TABARES MD Ot C50.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 06/07/2018 IMELDA TABARES MD Ot E03.9 HYPOTHYROIDISM, UNSPECIFIED 06/07/2018 IMELDA TABARES MD Ot E78.5 HYPERLIPIDEMIA, UNSPECIFIED 06/07/2018 IMELDA TABARES MD Ot I10 ESSENTIAL (PRIMARY) HYPERTENSION 06/07/2018 IMELDA TABARES MD Ot Z17.0 ESTROGEN RECEPTOR POSITIVE STATUS [ER+] 06/07/2018 IMELDA TABARES MD Ot Z79.899 OTHER GRAVITY PROSPECTING OPERATOR (CURRENT) DRUG THERAPY 06/07/2018 IMELDA TABARES MD Ot Z80.9 FAMILY HISTORY OF MALIGNANT NEOPLASM, UN 06/09/2018 SARINA CRUZ SOFTWARE CONFIGURATION ENGINEER Ot 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 06/09/2018 SARINA CRUZ SOFTWARE CONFIGURATION ENGINEER Ot V16.8 FAMILY HX-MALIGNANCY NEC 06/09/2018 SARINA CRZU SOFTWARE CONFIGURATION ENGINEER Ot V58.69 OTH MED,LT,CURRENT USE 06/09/2018 SARINA CRUZ SOFTWARE CONFIGURATION ENGINEER Ot V86.0 ESTROGEN RECEPTOR POSITIVE STATUS [ER+] 06/09/2018 NORI HERNANDES MD Ot 174.9 MALIGN NEOPL BREAST NOS 06/09/2018 NORI HERNANDES MD Ot 733.00 OSTEOPOROSIS NOS 06/09/2018 NORI HERNANDES MD Ot V07.4 HORMONE REPLACEMENT THERAPY (POSTMENOPAU 06/09/2018 NORI HERNANDES MD Ot V82.81 SCREENING FOR OSTEOPOROSIS 06/09/2018 NORI HERNANDES MD Ot 174.9 MALIGN NEOPL BREAST NOS 06/09/2018 NORI HERNANDES MD Ot 174.9 MALIGN NEOPL BREAST NOS 06/09/2018 NORI HERNANDES MD Ot V76.11 SCRN MAMMO-HIGH RISK PT, MALIGNANT NEOPL 06/09/2018 NORI HERNANDES MD Ot C50.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 06/09/2018 NORI HERNANDES MD Ot Z12.31 ENCNTR SCREEN MAMMOGRAM FOR MALIGNANT NE 06/09/2018 Ot Z12.31 ENCNTR SCREEN MAMMOGRAM FOR MALIGNANT NE 06/09/2018 NORI HERNANDES MD Ot C50.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 06/09/2018 NORI HERNANDES MD Ot M81.8 OTHER OSTEOPOROSIS WITHOUT CURRENT PATHO 06/09/2018 NORI HERNANDES MD Ot Z79.811 LONGTERM (CURRENT) USE OF AROMATASE INH 06/09/2018 IMELDA TABARES MD, Ot Z12.31 ENCNTR SCREEN MAMMOGRAM FOR MALIGNANT NE 06/09/2018 IMELDA TABARES MD Ot C50.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 06/09/2018 IMELDA TABARES MD Ot E03.9 HYPOTHYROIDISM, UNSPECIFIED 06/09/2018 IMELDA TABARES MD Ot E78.5 HYPERLIPIDEMIA, UNSPECIFIED 06/09/2018 IMELDA TABARES MD Ot I10 ESSENTIAL (PRIMARY) HYPERTENSION 06/09/2018 IMELDA TABARES MD Ot Z17.0 ESTROGEN RECEPTOR POSITIVE STATUS [ER+] 06/09/2018 IMELDA TABARES MD Ot Z79.899 OTHER GRAVITY PROSPECTING OPERATOR (CURRENT) DRUG THERAPY 06/09/2018 IMELDA TABARES MD Ot Z80.9 FAMILY HISTORY OF MALIGNANT NEOPLASM, UN 06/09/2018 FERN HAYES MD Ot G93.9 DISORDER OF BRAIN, UNSPECIFIED 06/09/2018 FERN HAYES MD Ot H95.192 OTHER DISORDERS FOLLOWING MASTOIDECTOMY, 06/09/2018 FERN HAYES MD Ot I67.82 CEREBRAL ISCHEMIA 06/09/2018 FERN HAYES MD Ot Z85.3 PERSONAL HISTORY OF MALIGNANT NEOPLASM O 08/31/2018 IMELDA TABARES MD Ot Z12.31 ENCNTR SCREEN MAMMOGRAM FOR MALIGNANT NE 08/31/2018 IMELDA TABARES MD Ot Z12.31 ENCNTR SCREEN MAMMOGRAM FOR MALIGNANT NE 09/01/2018 IMELDA TABARES MD Ot M81.8 OTHER OSTEOPOROSIS WITHOUT CURRENT PATHO 10/11/2018 IMELDA TABARES MD Ot C50.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 10/11/2018 IMELDA TABARES MD Ot E03.9 HYPOTHYROIDISM, UNSPECIFIED 10/11/2018 IMELDA TABARES MD Ot E78.5 HYPERLIPIDEMIA, UNSPECIFIED 10/11/2018 IMELDA TABARES MD Ot I10 ESSENTIAL (PRIMARY) HYPERTENSION 10/11/2018 IMELDA TABARES MD Ot Z17.0 ESTROGEN RECEPTOR POSITIVE STATUS [ER+] 10/11/2018 IMELDA TABARES MD Ot Z79.899 OTHER LONGTERM (CURRENT) DRUG THERAPY 10/11/2018 IMEDLA TABARES MD Ot Z80.9 FAMILY HISTORY OF MALIGNANT NEOPLASM, UN 11/30/2018 IMELDA TABARES MD Ot C50.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 11/30/2018 IMELDA TABARES MD Ot E03.9 HYPOTHYROIDISM, UNSPECIFIED 11/30/2018 IMELDA TABARES MD Ot E78.5 HYPERLIPIDEMIA, UNSPECIFIED 11/30/2018 IMELDA TABARES MD Ot I10 ESSENTIAL (PRIMARY) HYPERTENSION 11/30/2018 IMELDA TABARES MD Ot Z17.0 ESTROGEN RECEPTOR POSITIVE STATUS [ER+] 11/30/2018 IMELDA TABARES MD Ot Z79.899 OTHER GRAVITY PROSPECTING OPERATOR (CURRENT) DRUG THERAPY 11/30/2018 IMELDA TABARES MD Ot Z80.9 FAMILY HISTORY OF MALIGNANT NEOPLASM, UN 12/02/2018 IMELDA TABARES MD Ot C50.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 12/02/2018 IMELDA TABARES MD Ot E03.9 HYPOTHYROIDISM, UNSPECIFIED 12/02/2018 IMELDA TABARES MD Ot E78.5 HYPERLIPIDEMIA, UNSPECIFIED 12/02/2018 IMELDA TABARES MD Ot I10 ESSENTIAL (PRIMARY) HYPERTENSION 12/02/2018 IMELDA TABARES MD Ot Z17.0 ESTROGEN RECEPTOR POSITIVE STATUS [ER+] 12/02/2018 IMELDA TABARES MD Ot Z79.899 OTHER GRAVITY PROSPECTING OPERATOR (CURRENT) DRUG THERAPY 12/02/2018 IMELDA TABARES MD Ot Z80.9 FAMILY HISTORY OF MALIGNANT NEOPLASM, UN 01/07/2019 SARINA CRUZ SOFTWARE CONFIGURATION ENGINEER Ot 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 01/07/2019 SARINA CRUZ SOFTWARE CONFIGURATION ENGINEER Ot V16.8 FAMILY HX-MALIGNANCY NEC 01/07/2019 SARINA CRUZ SOFTWARE CONFIGURATION ENGINEER Ot V58.69 OT MED,LT,CURRENT USE 01/07/2019 SARINA CRUZ SOFTWARE CONFIGURATION ENGINEER Ot V86.0 ESTROGEN RECEPTOR POSITIVE STATUS [ER+] 01/07/2019 NORI HERNANDES MD Ot 174.9 MALIGN NEOPL BREAST NOS 01/07/2019 NORI HERNANDES MD Ot 733.00 OSTEOPOROSIS NOS 01/07/2019 NORI HERNANDES MD Ot V07.4 HORMONE REPLACEMENT THERAPY (POSTMENOPAU 01/07/2019 NORI HENRANDES MD Ot V82.81 SCREENING FOR OSTEOPOROSIS 01/07/2019 NORI HERNANDES MD Ot 174.9 MALIGN NEOPL BREAST NOS 01/07/2019 NORI HERNANDES MD Ot 174.9 MALIGN NEOPL BREAST NOS 01/07/2019 NORI HERNANDES MD Ot V76.11 SCRN MAMMO-HIGH RISK PT, MALIGNANT NEOPL 01/07/2019 NORI HERNANDES MD Ot C50.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 01/07/2019 NORI HERNANDES MD Ot Z12.31 ENCNTR SCREEN MAMMOGRAM FOR MALIGNANT NE 01/07/2019 Ot Z12.31 ENCNTR SCREEN MAMMOGRAM FOR MALIGNANT NE 01/07/2019 NORI HERNANDES MD Ot C50.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 01/07/2019 NORI HERNANDES MD Ot M81.8 OTHER OSTEOPOROSIS WITHOUT CURRENT PATHO 01/07/2019 NORI HERNANDES MD Ot Z79.811 GRAVITY PROSPECTING OPERATOR (CURRENT) USE OF AROMATASE INH 01/07/2019 IMELDA TABARES MD, Ot Z12.31 ENCNTR SCREEN MAMMOGRAM FOR MALIGNANT NE 01/07/2019 FERN HAYES MD Ot G93.9 DISORDER OF BRAIN, UNSPECIFIED 01/07/2019 FERN HAYES MD Ot H95.192 OTHER DISORDERS FOLLOWING MASTOIDECTOMY, 01/07/2019 FERN HAYES MD Ot I67.82 CEREBRAL ISCHEMIA 01/07/2019 FERN HAYES MD, Ot Z85.3 PERSONAL HISTORY OF MALIGNANT NEOPLASM O 01/07/2019 IMELDA TABARES MD, Ot Z12.31 ENCNTR SCREEN MAMMOGRAM FOR MALIGNANT NE 01/07/2019 IMELDA TABARES MD, Ot C50.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 01/07/2019 IMELDA TABARES MD Ot E03.9 HYPOTHYROIDISM, UNSPECIFIED 01/07/2019 IMELDA TABARES MD Ot E78.5 HYPERLIPIDEMIA, UNSPECIFIED 01/07/2019 IMELDA TABARES MD Ot I10 ESSENTIAL (PRIMARY) HYPERTENSION 01/07/2019 IMELDA TABARES MD Ot Z17.0 ESTROGEN RECEPTOR POSITIVE STATUS [ER+] 01/07/2019 IMELDA TABARES MD, Ot Z79.899 OTHER LONGTERM (CURRENT) DRUG THERAPY 01/07/2019 IMELDA TABARES MD Ot Z80.9 FAMILY HISTORY OF MALIGNANT NEOPLASM, UN 01/09/2019 IMELDA TABARES MD Ot C50.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 01/09/2019 IMELDA TABARES MD Ot E78.00 PURE HYPERCHOLESTEROLEMIA, UNSPECIFIED 01/09/2019 IMELDA TABARES MD Ot 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 Results Test Result Range BMP - 02/21/17 11:29 Anion Gap 16 6-14 BUN 14 mg/dL 5-25 Calcium 9.5 mg/dL 8.3-10.4 Chloride 105 mmol/L 95-114 CO2 25 mEq/L 22-33 Creat 0.92 mg/dL 0.50-1.50 eGFR 61 mL/min/1.73m2 >59 Glucose 113 mg/dL 70-110 Osmo 294 280-295 Potassium 4.2 mmol/L 3.5-5.3 Sodium 142 mmol/L 134-148 Uric Acid - 02/21/17 11:29 Uric Acid 7.7 mg/dL 2.6-7.2 Protime - 06/17/17 11:22 INR 0.9 1.0-4.0 Protime 10.5 Sec 9.9-12.8 [id number] - 06/09/18 11:16 Serum or plasma urea nitrogen measurement (mass/volume) 17 mg/dL 7-18 Serum or plasma creatinine measurement (mass/volume) 0.83 mg/dL 0.60-1.30 Serum or plasma urea nitrogen/creatinine mass ratio 20 NRG Serum or plasma creatinine measurement with calculation of estimated glomerular filtration rate > NRG Encounters ACCT No. Visit Date/Time Discharge Status Pt. Type Provider Facility Loc./Unit Complaint [id number] 01/13/2019 12:29:00 01/13/2019 23:59:59 CLS Preadmit IMELDA TABARES MD [facility] RAD MALIGNANT TUMOR OF LT BREAST [id number] 01/13/2019 08:08:00 01/13/2019 23:59:59 CLS Outpatient IMELDA TABARES MD [facility] RAD ABN MAMMO R92.8 [id number] 01/07/2019 09:47:00 01/07/2019 23:59:59 CLS Outpatient IMELDA TABARES MD [facility] RAD MALGINANT TUMOR OF BREAST [id number] 12/01/2018 00:09:00 12/01/2018 23:59:59 CLS Preadmit IMELDA TABARES MD [facility] ONC [id number] 09/01/2018 12:45:00 11/30/2018 00:01:00 DIS Outpatient IMELDA TABARES MD [facility] ONC [id number] 09/09/2018 10:30:00 09/09/2018 23:59:59 CLS Preadmit IMELDA TABARES MD [facility] RAD MALIGNANT TUMOR OF BREAST [id number] 06/09/2018 10:52:00 06/09/2018 23:59:59 CLS Outpatient FERN HAYES MD [facility] RAD HEARING LOSS H91.90 [id number] 03/03/2018 13:00:00 06/01/2018 00:01:00 DIS Outpatient IMELDA TABARES MD [facility] ONC [id number] 01/07/2018 10:18:00 01/07/2018 23:59:59 CLS Outpatient IMELDA TABARES MD [facility] RAD Z12.31 SCREENING MAMMO [id number] 09/02/2017 14:34:00 12/01/2017 00:01:00 DIS Outpatient IMELDA TABARES MD [facility] ONC [id number] 02/25/2017 09:40:00 05/26/2017 00:01:00 DIS Outpatient NORI HERNANDES MD [facility] ONC [id number] 08/27/2016 09:25:00 11/25/2016 00:01:00 DIS Outpatient NORI HERNANDES MD [facility] ONC [id number] 09/04/2016 10:25:00 09/04/2016 23:59:59 CLS Outpatient NORI HERNANDES MD [facility] RAD C50.412,M81.8 [id number] 02/27/2016 09:29:00 05/27/2016 00:01:00 DIS Outpatient NORI HERNANDES MD [facility] ONC [id number] 01/02/2016 08:57:00 01/02/2016 23:59:59 CLS Outpatient NORI HERNANDES MD [facility] RAD SCREENING [id number] 08/22/2015 09:34:00 11/20/2015 00:01:00 DIS Outpatient NORI HERNANDES MD [facility] ONC [id number] 02/20/2015 09:31:00 05/21/2015 00:01:00 DIS Outpatient NORI HERNANDES MD [facility] ONC [id number] 03/20/2015 10:57:00 03/20/2015 23:59:59 CLS Outpatient SARINA CRUZ [facility] ONC [id number] 01/01/2015 10:51:00 01/01/2015 23:59:59 CLS Outpatient NORI HERNANDES MD [facility] RAD SCREENING [id number] 06/27/2014 09:05:00 09/25/2014 00:01:00 DIS Outpatient NORI HERNANDES MD [facility] ONC [id number] 03/01/2014 08:57:00 05/30/2014 00:01:00 DIS Outpatient NORI HERNANDES MD [facility] ONC [id number] 11/29/2013 09:08:00 02/23/2014 11:17:00 DIS Outpatient NORI HERNANDES MD [facility] ONC [id number] 12/30/2013 07:47:00 12/30/2013 23:59:59 CLS Outpatient NORI HERNANDES MD [facility] RAD CA LEFT BREAST [id number] 08/02/2013 08:55:00 10/23/2013 00:01:00 DIS Outpatient [id number] 09/09/2013 08:08:00 09/09/2013 23:59:59 CLS Outpatient NORI HERNANDES MD [facility] RAD CA BREAST,OSTEOPOROSIS [id number] 04/27/2013 15:40:00 06/29/2013 00:01:00 DIS Outpatient [id number] 01/06/2017 09:05:00 Document Registration [id number] 10/24/2014 11:01:00 Document Registration [id number] 08/22/2015 10:08:17 ACT Document Registration [id number] 06/24/2017 00:00:00 06/24/2017 11:08:00 DIS Outpatient Adonay Gunter [id number] 06/17/2017 10:53:00 06/17/2017 23:59:00 DIS Outpatient Adonay Gunter [id number] 02/21/2017 11:24:00 02/21/2017 23:59:00 DIS Outpatient Mayela Luong 199906/24/2017 07:57:27 Document Registration
--- NOTE | 2019-01-17 15:06 | History & Physicial ---
History of Present Illness History of Present Illness Reason for visit/HPI This lady sustained a fall, while getting out of the bathtub this morning, leading to multiple rib fractures and left pulmonary contusion. Date of Admission Jan 17, 2019 at 14:56 Date Seen by a Provider: Jan 17, 2019 Time Seen by a Provider: 14:20 I consulted on this patient on 01/17/19 15:01 Attending Physician Jose Prescott MD Admitting Physician Luciano Olson DO Consult Allergies and Home Medications Allergies Coded Allergies: No Known Drug Allergies (Unverified , 01/17/19) Home Medications Alendronate Sodium 70 Mg Tab, 70 MG PO Tavarez@06, (Reported) Atenolol 50 Mg Tablet, 50 MG PO DAILY, (Reported) Docusate Sodium 100 Mg Capsule, 100 MG PO UD Once or twice daily while using hydrocodone to prevent constipation. Prescribed by: GIO DUMONT on 01/17/19 1216 Hydrocodone/Acetaminophen 1 Each Tablet, 1-2 TAB PO Q6H PRN for PAIN-MODERATE TO SEVERE Prescribed by: GIO DUMONT on 01/17/19 1216 Levothyroxine Sodium 25 Mcg Tablet, 1 EACH PO DAILY, (Reported) Simvastatin 20 Mg Tab, 20 MG PO DAILY, (Reported) Sumatriptan Succinate 50 Mg Tab, 50 MG PO UD, (Reported) Patient Home Medication List Home Medication List Reviewed: Yes Past Jzgbsuj-Aziobq-Dugikv Hx Patient Social History Marrital Status: Employed/Student: employed Alcohol Use: Denies Use Recreational Drug Use: No Smoking Status: Never a Smoker Recent Foreign Travel: No Contact w/other who traveled: No Recent Hopitalizations: No Recent Infectious Disease Expo: No Seasonal Allergies Seasonal Allergies: No Surgeries Yes Breast, Eye Surgery, Orthopedic, Thyroidectomy Respiratory No Cardiovascular Yes Hypertension Neurological No Genitourinary No Gastrointestinal No Musculoskeletal Yes Osteoporosis Endocrine History of Endocrine Disorders: Yes Endocrine Disorders: Hypothyroidsim HEENT History of HEENT Disorders: No Cancer Yes Breast Psychosocial History of Psychiatric Problem: No Integumentary History of Skin or Integumenta: No Blood Transfusions History of Blood Disorders: No Review of Systems Constitutional: no symptoms reported EENTM: no symptoms reported Respiratory: other Cardiovascular: no symptoms reported Gastrointestinal: no symptoms reported Genitourinary: no symptoms reported Musculoskeletal: see HPI Skin: no symptoms reported Psychiatric/Neurological: No Symptoms Reported Physical Exam Vital Signs Vital Signs - First Documented 01/17/19 09:58 Temp 97.6 Pulse 74 Resp 16 B/P (MAP) 166/87 (113) Pulse Ox 100 Capillary Refill : Less Than 3 Seconds Height, Weight, BMI Height: 5'9.00" Weight: 175lbs. oz. 79.855936gq; BMI Method:Stated General Appearance: Anxious, Moderate Distress Respiratory: Crackles, Decreased Breath Sounds Cardiovascular: Regular Rate, Rhythm Gastrointestinal: Non Tender, Soft Back: Normal Inspection Extremity: Normal Inspection Neurologic/Psychiatric: Alert, Oriented x3 Skin: Warm/Dry Comments coarse crepitations over the left lower lung. Point tenderness along the left posterior chest wall, related to acute rib fractures Assessment/Plan Assessment and Plan lady with multiple rib fractures on the left side with associated pulmonary contusion. No obvious pneumothorax. Spleen intact. Risk of ventilatory failure and atelectasis rather high. Reasonable to initiate pain control with encouragement toward incentive spirometry. Admission Diagnosis Admission Status: Inpatient Order (span 2 midnights) Reason for Inpatient Admission: management expected to last longer than 2 days JOSE PRESCOTT MD Jan 17, 2019 15:06
[2019-01-17] MEDS ORDERED: HYDROcodone/APAP 5 MG/325 MG (LORTAB) TAB PO PRN (15:15)
[2019-01-17] MEDS ORDERED: ONDANSETRON 4 MG/2 ML (SDV) Z0FRAN IVP PRN (15:15)
--- NOTE | 2019-01-17 15:20 | NUR ---
PATIENT TO FLOOR A THIS TIME VIA W/C ACCOMPANIED BY BRAOV GUZMAN.
[2019-01-17] MEDS ORDERED: CATHETER FLUSH 10 ML SYR IV PRN (15:30)
[2019-01-17 15:42] VITALS: BP 147/80
[2019-01-17] MEDS ORDERED: FURO20TA4 PO (16:25)
[2019-01-17] MEDS ORDERED: ATEN50TA PO (16:25)
[2019-01-17] MEDS ORDERED: SIMV20TA3 PO (16:25)
[2019-01-17] MEDS ORDERED: CA C1TAB70 PO (16:25)
[2019-01-17] MEDS ORDERED: LATA2.5D5 OU (16:25)
[2019-01-17] MEDS ORDERED: AMLO5TAB9 PO (16:25)
[2019-01-17] MEDS ORDERED: CALC-904 PO (16:25)
[2019-01-17] MEDS ORDERED: LEVO25TA5 PO (16:25)
[2019-01-17] MEDS ORDERED: TIMO5DRO5 OU (16:25)
[2019-01-17] MEDS ORDERED: POTA10TA10 PO (16:25)
[2019-01-17] MEDS ORDERED: CHOL400C9 PO (16:25)
[2019-01-17] MEDS ORDERED: FOLI0.8T PO (16:25)
--- NOTE | 2019-01-17 16:28 | NUR ---
UPDATED MED REC WITH LIST PATIENT BROUGHT IN, I COMPARED THE PRESCRIPTION MEDICATION WITH THE EXT MED HX WELL.
[2019-01-17] MEDS ORDERED: PATIENT MAY USE OWN MEDS, ALL MC SCH (19:00)
[2019-01-17] MEDS: fentaNYL INJECTION 100 MCG/2 ML AMP IVP PRN ×2 (19:02→22:08)
[2019-01-17 19:36] VITALS: BP 135/63
[2019-01-17] MEDS: CATHETER FLUSH 10 ML SYR IV SCH (22:08)
[2019-01-17] MEDS: HYDROcodone/APAP 5 MG/325 MG (LORTAB) TAB PO PRN (23:17)
[2019-01-18] VITALS: BP 133/63
[2019-01-18] MEDS: HYDROcodone/APAP 5 MG/325 MG (LORTAB) TAB PO PRN ×3 (03:24→18:52)
[2019-01-18 04:00] VITALS: BP 109/59
[2019-01-18] MEDS: CATHETER FLUSH 10 ML SYR IV SCH ×3 (05:30→20:41)
[2019-01-18 08:00] VITALS: BP 136/62
--- NOTE | 2019-01-18 10:13 | Diagnostic Imaging Report ---
INDICATION: Rib fracture pulmonary contusion, followup. TECHNIQUE: Single view chest 3:33 AM. CORRELATION STUDY: 01/17/2019 FINDINGS: Heart size relatively stable. Vascularity is slightly increased from prior study. There appears to be some increasing areas of likely atelectasis at the lung bases. Small left pleural effusion also increased. Previously demonstrated left-sided rib fracture deformities are less well visualized on this current study. No appreciable pneumothorax. IMPRESSION: 1. There does appear to be increasing combination of atelectasis less likely infiltrate lung bases left greater than right. Small left pleural effusion also slightly increased from prior study. Dictated by: Dictated on workstation # [id number]
--- NOTE | 2019-01-18 10:35 | Progress Note (SOAP) ---
Subjective Date Seen by a Provider: Jan 18, 2019 Time Seen by a Provider: 09:40 Subjective/Events-last exam patient reports requiring help to get out of bed. Pain along the chest wall unchanged. No pneumothorax on chest x-ray. Review of Systems General: No Chills, No Night Sweats, No Fatigue, No Malaise HEENT: No Head Aches, No Eye Pain, No Ear Pain, No Dysphasia, No Sinus Congestion, No Post Nasal Drip, No Sore Throat Pulmonary: Cough Cardiovascular: No: Chest Pain, Palpitations, Orthopnea, Paroxysmal Noc. Dyspnea, Edema, Lt Headedness Gastrointestinal: No: Nausea, Vomiting, Abdominal Pain, Diarrhea, Constipation , Melena, Hematochezia Genitourinary: No Dysuria, No Frequency, No Incontinence, No Hematuria, No Retention Musculoskeletal: other Neurological: No: Weakness, Numbness, Incoordination, Change in speech, Confusion, Seizures, Other Objective Exam Vital Signs Date Time Temp Pulse Resp B/P (MAP) Pulse Ox O2 Delivery O2 Flow Rate FiO2 01/18/19 08:00 97 Room Air 01/18/19 07:00 97 Room Air 01/18/19 04:00 98.0 64 16 109/59 (76) 97 Room Air 01/18/19 00:00 98.5 74 16 133/63 (86) 97 Room Air 01/17/19 20:00 Room Air 01/17/19 19:36 98.8 69 16 135/63 (87) 97 Room Air 01/17/19 18:27 100 Room Air 01/17/19 18:22 100 Room Air 01/17/19 15:42 98.6 71 18 147/80 100 01/17/19 15:15 97.6 74 16 166/87 (113) 100 I & O 01/18/19 07:00 Intake Total 550 ml Output Total 100 ml Balance 450 ml Capillary Refill : Less Than 3 Seconds General Appearance: No Apparent Distress Neck: Normal Inspection Respiratory: Lungs Clear Cardiovascular: Regular Rate, Rhythm Gastrointestinal: non tender, soft Extremity: Normal Inspection Skin: Warm/Dry Results Lab Laboratory Tests 01/17/19 12:42: White Blood Count 15.3H, Red Blood Count 4.60, Hemoglobin 13.3, Hematocrit 42, Mean Corpuscular Volume 90, Mean Corpuscular Hemoglobin 29, Mean Corpuscular Hemoglobin Concent 32, Red Cell Distribution Width 12.8, Platelet Count 205, Mean Platelet Volume 9.3, Neutrophils (%) (Auto) 88H, Lymphocytes (%) (Auto) 8L , Monocytes (%) (Auto) 4, Eosinophils (%) (Auto) 0, Basophils (%) (Auto) 0, Neutrophils # (Auto) 13.4H, Lymphocytes # (Auto) 1.3, Monocytes # (Auto) 0.6, Eosinophils # (Auto) 0.0, Basophils # (Auto) 0.0, Neutrophils % (Manual) 86, Lymphocytes % (Manual) 9, Monocytes % (Manual) 5, Eosinophils % (Manual) 0, Basophils % (Manual) 0, Band Neutrophils 0, Blood Morphology Comment NORMAL, Sodium Level 137, Potassium Level 4.1, Chloride Level 101, Carbon Dioxide Level 25, Anion Gap 11, Blood Urea Nitrogen 20H, Creatinine 0.83, Estimat Glomerular Filtration Rate > 60, BUN/Creatinine Ratio 24, Glucose Level 120H, Calcium Level 10.5H, Corrected Calcium , Total Bilirubin 0.4, Aspartate Amino Transf ( AST/SGOT) 23, Alanine Aminotransferase (ALT/SGPT) 17, Alkaline Phosphatase 94, Total Protein 7.6, Albumin 4.8H Assessment/Plan Assessment/Plan Assess & Plan/Chief Complaint lady with multiple rib fractures on the left side. History of breast carcinoma. Pathologic fracture to be considered due to the intensity of the impact being low. Physical therapy to facilitate her movements and possibly discharge in 1-2 days Final Diagnosis multiple rib fractures on the left side. Left pulmonary contusion. Clinical Quality Measures Admission Status Admission Dx lady with multiple rib fractures on the left side with associated pulmonary contusion. No obvious pneumothorax. Spleen intact. Risk of ventilatory failure and atelectasis rather high. Reasonable to initiate pain control with encouragement toward incentive spirometry. DVT/VTE Risk/Contraindication: Risk Factor Score Per Nursin RFS Level Per Nursing on Admit: 4+=Very High JOSE PRESCOTT MD Jan 18, 2019 10:35
--- NOTE | 2019-01-18 10:38 | Diagnostic Imaging Report ---
INDICATION: Enlarged thyroid gland noted at CT chest. TECHNIQUE: Grayscale sonographic images of the thyroid gland. CORRELATION STUDY: None. FINDINGS: RIGHT LOBE: Reported as surgically absent. No definitive residual thyroid tissue at the expected location of the right thyroid bed. LEFT LOBE: Enlarged at 6.4 x 3.0 x 3.5 cm. There is very heterogeneous echotexture throughout the left lobe. There does appear to be somewhat more focal mass-like area measuring 4.5 x 2.8 x 3.2 cm. There is what appears to be somewhat of a spongiform echotexture with cystic change. There also appears to be presence of a few scattered microcalcifications. Vascular blood flow is present. IMPRESSION: 1. Absent right lobe thyroid gland. 2. Enlarged left lobe. Nearly 4.5 cm mass of the left lobe. Given imaging features and size, neoplasm should be excluded. Correlation with fine-needle aspiration/biopsy is recommended. (Normal gland size: 4-5 x 2 x 2 cm) Dictated by: Dictated on workstation # [id number]
[2019-01-18 12:00] VITALS: BP 119/75
--- NOTE | 2019-01-18 14:00 | NUR ---
Pastoral care visit, offered prayer and support.
--- NOTE | 2019-01-18 15:04 | Physical Therapy Evaluation ---
PT Evaluation-General Medical Diagnosis Admission Date Jan 17, 2019 at 14:56 Medical Diagnosis: Multiple Rib Fx Onset Date: Jan 17, 2019 Therapy Diagnosis Therapy Diagnosis: decreased mobility Height/Weight Height (Feet): 5 Height (Inches): 9.00 Weight (Pounds): 175 Weight (Ounces): 0.0 Precautions Precautions/Isolations: Fall Prevention, Standard Precautions Weight Bear Status Right Lower Extremity: Right Weight Bearing/Tolerated Left Lower Extremity: Left Weight Bearing/Tolerated Referral Physician: Dr. Samuels Reason for Referral: Evaluation/Treatment Medical History Pertinent Medical History: Breast CA S/P Mastectomy, Hypothroidism Additional Medical History B TKA, Meniere's Disease, Osteoporosis Current History Pt reports a fall in shower and stuck L upper back. Reviewed History: Yes Social History Home: Single Level Current Living Status: Spouse Entry Into Home: Stairs With Railing PT Steps Into Home: 3 Prior/Core FIM Prior Level of Function Therapy Code Descriptions/Definitions Functional White Measure: 0=Not Assessed/NA 4=Minimal Assistance 1=Total Assistance 5=Supervision or Setup 2=Maximal Assistance 6=Modified White 3=Moderate Assistance 7=Complete White Therapy Quality Codes: 6 Independent with activity with or without an assistive device 5 Patient requires set up or clean up by helper. Patient completes activity by themselves 4 Supervision or touching assist (CGA). [place] provide cues , steadying assist 3 The helper provides less than half the effort to complete the activity 2 The helper provides more than half the effort to complete the activity 1 Dependent. The helper does all the effort to complete an activity 7 Patient refused to complete or attempt activity 9 The patient did not perform the activity before the current illness or injury 88 Not attempted due to Medical conditions or safety concerns Functional Abilities and Goals: Independent: Patient completed the activities by him/herself, with or without an assistive device, with no assistance from a helper. Needed Some Help: Patient needed partial assistance from another person to complete activities. Dependent: A helper completed the activities for the patient. Unknown: Not Applicable: Bed Mobility: 7 Transfers (B,C,W/C) (FIM): 7 Gait: 7 Stairs: 7 Indoor Mobility (Ambulation): Independent Stairs: Independent Prior Devices Use: None PT Evaluation-Current Subjective Pt in bed and agrees to PT. Pain Numeric Pain Scale: 10-Worst Possible Pain Location Body Site: Abdomen Pt/Family Goals Pt to return home. Objective Patient Orientation: Person, Place, Situation, Normal For Age ROM/Strength ROM Lower Extremities NT Strength Lower Extremities NT Sensory Vision: Functional Hearing: Functional Transfers Therapy Code Descriptions/Definitions Functional White Measure: 0=Not Assessed/NA 4=Minimal Assistance 1=Total Assistance 5=Supervision or Setup 2=Maximal Assistance 6=Modified White 3=Moderate Assistance 7=Complete White Transfers (B, C, W/C) (FIM): 6 Scootin Supine to/from Sit: 6 Sit to/from Stand: 6 Gait Mode of Locomotion: Walk Anticipated Mode of Locomotion: Walk Gait (FIM): 6 Distance (FIM): 3=150 ft Distance: 800' Gait Level of Assist: 6 Gait Persons Needed: 1 Gait Assistive Device: FWW Comments/Gait Description slow gait speed due to pain Balance Sitting Static: Good Sitting Dynamic: Good Standing Static: Good Standing Dynamic: Good Assessment/Needs Pt was able to perform bed mobility mod I with use of bed assists. Pt sit<> stand transfer from EOB to FWW was mod I. Pt amb 800' with mod I use of FWW at slow gait speed due to pain. Pt reports she only has concern for getting in the car to go home but that she was able to do so coming here so she can do it. SPT informed pt that it's just going to be painful but she can perform the transfers and amb as much as she wants and the best thing is to keep moving around to avoid other complications. Pt returned to room and transfer to recliner mod I. Pt has all needs met and is up in recliner. PT will not be picking pt up for skilled physical therapy services. Rehab Potential: Good Post Rehab Potential-Barriers: co-morbidities PT Plan Problem List Problem List: Activity Tolerance Treatment/Plan Treatment Plan: Discontinue PT Treatment Plan: Other Treatment Duration: Jan 18, 2019 Frequency: Estimated Hrs Per Day: Other Patient and/or Family Agrees t: Yes Safety Risks/Education Patient Education: Gait Training, Transfer Techniques, Correct Positioning, Safety Issues Teaching Recipient: Patient Teaching Methods: Demonstration, Discussion Discharge Recommendations Therapy D/C Recommendations: Home w/ Family Support Time/GCodes Time In: 1414 Time Out: 1425 Total Billed Treatment Time: 11 Total Billed Treatment 1 visit EVL 11 min ARABELLA SANFORD PT Jan 18, 2019 15:04
[2019-01-18 16:00] VITALS: BP 108/53
[2019-01-18] MEDS: fentaNYL INJECTION 100 MCG/2 ML AMP IVP PRN (18:55)
[2019-01-18 20:00] VITALS: BP 110/54
[2019-01-18] MEDS: TIMOLOL MALEATE 0.5% 5 ML (TIMOPTIC) BTL OU SCH (20:40)
[2019-01-18] MEDS ORDERED: SIMvastatin 20 MG (ZOCOR) TAB PO SCH ×2 (21:00)
[2019-01-18] MEDS ORDERED: LATANOPROST 0.005% (XALATAN) OPHTH SOLN 2.5 ML OU SCH (21:00)
[2019-01-19] VITALS: BP 120/60
[2019-01-19] MEDS: CATHETER FLUSH 10 ML SYR IV SCH ×2 (06:09→14:45)
[2019-01-19] MEDS: HYDROcodone/APAP 5 MG/325 MG (LORTAB) TAB PO PRN (06:13)
[2019-01-19] MEDS ORDERED: LEVOTHYROXINE 25 MCG (LEVOTHROID) TAB PO SCH ×2 (06:30)
[2019-01-19] MEDS ORDERED: CALCIUM CARB + VIT D 600 MG (CALCARB + D) TAB PO SCH (07:00)
[2019-01-19] MEDS ORDERED: KCL 10 MEQ TAB (MICRO K) PO SCH ×2 (07:00)
[2019-01-19 08:00] VITALS: BP 121/59
[2019-01-19] MEDS ORDERED: D3 PO SCH (09:00)
[2019-01-19] MEDS ORDERED: ATENOLOL 50 MG (TENORMIN) TAB PO SCH ×2 (09:00)
[2019-01-19] MEDS ORDERED: NON-FORMULARY MEDICATION 1 EA EA (Cholecalciferol (Vitamin D3) (Vitamin D3) 400 UNIT) PO SCH (09:00)
[2019-01-19] MEDS ORDERED: amLODIPine 5 MG (NORVASC) TAB PO SCH ×2 (09:00)
[2019-01-19] MEDS ORDERED: [UNRECOGNIZED DRUG - OTHER] PO SCH (09:00)
[2019-01-19] MEDS ORDERED: ZINC PO SCH (09:00)
[2019-01-19] MEDS ORDERED: FUROSEMIDE 20 MG (LASIX) TAB PO SCH ×2 (09:00)
[2019-01-19] MEDS ORDERED: VITAMIN D3 400 UNITS (CHOLECALCIFEROL) TABLET PO SCH (09:00)
[2019-01-19] MEDS ORDERED: NON-FORMULARY MEDICATION 1 EA EA (Folic Acid 0.8 MG) PO SCH (09:00)
[2019-01-19] MEDS ORDERED: CALCIUM CARB PO SCH (09:00)
[2019-01-19] MEDS ORDERED: FOLIC ACID 1 MG TAB PO SCH (09:00)
[2019-01-19] MEDS ORDERED: MAGNESIUM PO SCH (09:00)
[2019-01-19] MEDS ORDERED: NON-FORMULARY MEDICATION 1 EA EA (Amlodipine Besylate 5 MG) PO SCH (09:00)
[2019-01-19] MEDS: TIMOLOL MALEATE 0.5% 5 ML (TIMOPTIC) BTL OU SCH (09:24)
[2019-01-19] MEDS: fentaNYL INJECTION 100 MCG/2 ML AMP IVP PRN (15:43)
--- NOTE | 2019-01-19 16:27 | Progress Note (SOAP) ---
Subjective Date Seen by a Provider: Jan 19, 2019 Time Seen by a Provider: 15:00 Subjective/Events-last exam pain from the rib fractures much improved. Ultrasound of the thyroid has confirmed a 4 cm mass involving the left lobe of the thyroid and evidence of previous right hemithyroidectomy. Patient feels being able to get out of bed and ambulate independently, expressing her desire to go home. Review of Systems General: No Chills, No Night Sweats, No Fatigue, No Malaise HEENT: No Head Aches, No Eye Pain, No Ear Pain, No Dysphasia, No Sinus Congestion, No Post Nasal Drip, No Sore Throat Pulmonary: No Dyspnea, No Cough, No Pleuritic Chest Pain Cardiovascular: No: Chest Pain, Palpitations, Orthopnea, Paroxysmal Noc. Dyspnea, Edema, Lt Headedness Gastrointestinal: No: Nausea, Vomiting, Abdominal Pain, Diarrhea, Constipation , Melena, Hematochezia Genitourinary: No Dysuria, No Frequency, No Incontinence, No Hematuria, No Retention Musculoskeletal: neck pain; No: other, shoulder pain, arm pain, back pain, hand pain, leg pain, foot pain Neurological: No: Weakness, Numbness, Incoordination, Change in speech, Confusion, Seizures, Other Objective Exam Vital Signs Date Time Temp Pulse Resp B/P (MAP) Pulse Ox O2 Delivery O2 Flow Rate FiO2 01/19/19 08:00 Room Air 01/19/19 08:00 98.4 72 18 121/59 (79) 96 Room Air 01/19/19 00:00 98.0 72 18 120/60 (80) 95 Room Air 01/18/19 20:00 98.5 72 18 110/54 (72) 97 Room Air 01/18/19 20:00 Room Air I & O 01/19/19 07:00 Intake Total 1420 ml Balance 1420 ml Capillary Refill : Less Than 3 Seconds General Appearance: No Apparent Distress Neck: Normal Inspection Neurologic/Psychiatric: Oriented x3 Skin: Warm/Dry Assessment/Plan Assessment/Plan Assess & Plan/Chief Complaint lady with multiple rib fractures on the left side. History of breast carcinoma. Pathologic fracture to be considered due to the intensity of the impact being low. Physical therapy to facilitate her movements and possibly discharge in 1-2 days Lady with multiple rib fractures on the left side. History of breast carcinoma and a cluster of new microcalcifications on the left breast, stereotactic biopsy being planned. Left thyroid mass requiring needle biopsy. I discussed all these implications with her and she appears to comprehend. I will also discussed with the radiologist about coordinating stereotactic biopsy with thyroid biopsy on the same day. In view of 4 discomfort from rib fractures, it is reasonable to delay the biopsy for 2-3 weeks Final Diagnosis multiple rib fractures on the left side. Left thyroid mass. Abnormal microcalcifications of the left breast Clinical Quality Measures Admission Status Admission Dx lady with multiple rib fractures on the left side with associated pulmonary contusion. No obvious pneumothorax. Spleen intact. Risk of ventilatory failure and atelectasis rather high. Reasonable to initiate pain control with encouragement toward incentive spirometry. DVT/VTE Risk/Contraindication: Risk Factor Score Per Nursin RFS Level Per Nursing on Admit: 4+=Very High JOSE PRESCOTT MD Jan 19, 2019 16:26
--- NOTE | 2019-01-19 16:28 | Discharge Summary ---
Diagnosis/Chief Complaint Date of Admission Jan 17, 2019 at 14:56 Date of Discharge 01/19/19 Discharge Date: Jan 19, 2019 Discharge Time: 16:27 Admission Diagnosis Admission Diagnosis multiple left rib fractures. Discharge Diagnosis multiple left rib fractures. Left pulmonary contusion. Left thyroid mass. Abnormal microcalcifications of left breast Reason Hospital Visit This lady sustained a fall, while getting out of the bathtub this morning, leading to multiple rib fractures and left pulmonary contusion. Managed conservatively and her ambulation was facilitated by physical therapy. The time of discharge, she is able to move around independently. The new diagnosis of left thyroid mass has been disclosed to her with arrangements for a needle biopsy over the next 2-3 weeks. Discharge Summary Discharge Physical Examination Allergies: Coded Allergies: No Known Drug Allergies (Unverified , 01/17/19) Vitals & I&Os Vital Signs Date Time Temp Pulse Resp B/P (MAP) Pulse Ox O2 Delivery O2 Flow Rate FiO2 01/19/19 08:00 Room Air 01/19/19 08:00 98.4 72 18 121/59 (79) 96 Hospital Course Labs (last 24 hrs) Laboratory Tests 01/17/19 12:42: White Blood Count 15.3H, Red Blood Count 4.60, Hemoglobin 13.3, Hematocrit 42, Mean Corpuscular Volume 90, Mean Corpuscular Hemoglobin 29, Mean Corpuscular Hemoglobin Concent 32, Red Cell Distribution Width 12.8, Platelet Count 205, Mean Platelet Volume 9.3, Neutrophils (%) (Auto) 88H, Lymphocytes (%) (Auto) 8L , Monocytes (%) (Auto) 4, Eosinophils (%) (Auto) 0, Basophils (%) (Auto) 0, Neutrophils # (Auto) 13.4H, Lymphocytes # (Auto) 1.3, Monocytes # (Auto) 0.6, Eosinophils # (Auto) 0.0, Basophils # (Auto) 0.0, Neutrophils % (Manual) 86, Lymphocytes % (Manual) 9, Monocytes % (Manual) 5, Eosinophils % (Manual) 0, Basophils % (Manual) 0, Band Neutrophils 0, Blood Morphology Comment NORMAL, Sodium Level 137, Potassium Level 4.1, Chloride Level 101, Carbon Dioxide Level 25, Anion Gap 11, Blood Urea Nitrogen 20H, Creatinine 0.83, Estimat Glomerular Filtration Rate > 60, BUN/Creatinine Ratio 24, Glucose Level 120H, Calcium Level 10.5H, Corrected Calcium , Total Bilirubin 0.4, Aspartate Amino Transf ( AST/SGOT) 23, Alanine Aminotransferase (ALT/SGPT) 17, Alkaline Phosphatase 94, Total Protein 7.6, Albumin 4.8H Pending Labs Laboratory Tests 01/17/19 12:42: White Blood Count 15.3, Red Blood Count 4.60, Hemoglobin 13.3, Hematocrit 42, Mean Corpuscular Volume 90, Mean Corpuscular Hemoglobin 29, Mean Corpuscular Hemoglobin Concent 32, Red Cell Distribution Width 12.8, Platelet Count 205, Mean Platelet Volume 9.3, Neutrophils (%) (Auto) 88, Lymphocytes (%) (Auto) 8, Monocytes (%) (Auto) 4, Eosinophils (%) (Auto) 0, Basophils (%) (Auto) 0, Neutrophils # (Auto) 13.4, Lymphocytes # (Auto) 1.3, Monocytes # (Auto) 0.6, Eosinophils # (Auto) 0.0, Basophils # (Auto) 0.0, Neutrophils % (Manual) 86, Lymphocytes % (Manual) 9, Monocytes % (Manual) 5, Eosinophils % (Manual) 0, Basophils % (Manual) 0, Band Neutrophils 0, Blood Morphology Comment NORMAL, Sodium Level 137, Potassium Level 4.1, Chloride Level 101, Carbon Dioxide Level 25, Anion Gap 11, Blood Urea Nitrogen 20, Creatinine 0.83, Estimat Glomerular Filtration Rate > 60, BUN/Creatinine Ratio 24, Glucose Level 120, Calcium Level 10.5, Corrected Calcium , Total Bilirubin 0.4, Aspartate Amino Transf (AST/SGOT ) 23, Alanine Aminotransferase (ALT/SGPT) 17, Alkaline Phosphatase 94, Total Protein 7.6, Albumin 4.8 Discharge Home Medications: Active Scripts Active Reported Josue Mag Zinc + D3 Tablet (Calcium Carb/D3/Magnesium/Zinc) 1 Each Tablet 1 Tab PO DAILY Vitamin D3 (Cholecalciferol (Vitamin D3)) 400 Unit Capsule 400 Unit PO DAILY Folic Acid 0.8 Mg Tablet 0.8 Mg PO DAILY Latanoprost 2.5 Ml Drops 1 Drop OU HS Timolol Maleate 0.5% (Timolol Maleate) 5 Ml Drops 1 Drop OU BID Potassium Chloride 10 Meq Tablet.er 10 Meq PO DAILY Furosemide 20 Mg Tablet 20 Mg PO DAILY Amlodipine Besylate 5 Mg Tablet 5 Mg PO DAILY Atenolol 50 Mg Tablet 50 Mg PO DAILY Levothyroxine Sodium 25 Mcg Tablet 25 Mcg PO DAILY Simvastatin 20 Mg Tablet 20 Mg PO HS Instructions to patient/family Please see electronic discharge instructions given to patient. Clinical Quality Measures DVT/VTE Risk/Contraindication: Risk Factor Score Per Nursin RFS Level Per Nursing on Admit: 4+=Very High JOSE PRESCOTT MD Jan 19, 2019 16:28
--- NOTE | 2019-01-19 16:30 | Discharge Inst-Simple/Standard ---
Discharge Inst-Standard Discharge Medications New, Converted or Re-Newed RX: Other Patient Instructions/Follow Up Plan of Care/Instructions/FU: to use the prescription for Vicodin given by the emergency room physician. To continue using incentive spirometry at home. Follow-up with me on 01/31/19 Activity as Tolerated: Yes Discharge Diet: No Restrictions JOSE PRESCOTT MD Jan 19, 2019 16:30
--- NOTE | 2019-01-20 14:59 | Physician Query-General Query ---
Physician Query-General Query to Physician: Please clarify if the patients rib fractures are traumatic or pathologic secondary to her osteoporosis thank you PHYSICIAN RESPONSE: Based on the clinical findings in the record, please respond to the query above on this document as an addendum. Possible, probable, or questionable diagnosis can be coded for INPATIENTS ONLY. Physician Response: Physician Response Traumatic, with reference to this hospital admission and the history If you have questions please contact: Customer Account Administrator: Peace Childress Ext: [phone] Thank you for your time and cooperation. Clinical Supply Chain Planner/Customer Account Administrator This is a permanent part of the medical record SAUL CHILDRESS Jan 20, 2019 14:59 JOSE PRESCOTT MD Jan 21, 2019 10:38
--- OUTSIDE RECORDS SUMMARY | 2019-01-25 07:20 | XMS REPORT | Clinical Summary ---
Author Author [facility] Organization [facility] Address Unknown Phone Unavailable Care Team Providers Care Corn Press Operator Name Role Phone Luciano Olson PCP Source Comments Some departments are not documenting in the electronic medical record. If you do not see the information that you expected, contact Release of Information in the Health Information Management department at [phone] for further assistance in locating additional records.[facility] Allergies No Known Allergies Medications End [...] Take 1 tablet 0 oxide/Cu/zinc by mouth ([id number] daily. -ZINC) tab Active folic acid 0.8 [...] Overview: Added automatically from request for surgery [id number] Encounters Care Team Description Date Type Specialty [...] (1 of 2 - PCV13) INFLUENZA VACCINE 06/16/2018 Implants Device Identifier Shelf Expiration Date Model / Serial / Lot Implanted Type Area Manufactur er 07/16/2021 CI-1600-04 / [id number] / [id number] Implant Cochlear Hires Ultra Right: Cochlea UNIDENTIFI [employer]de Sterile [facility] [place] - [id number]-[id number] Implanted: Qty: 1 on 08/06/2018 by Don Sanon MD Procedures Comments Procedure Name Priority Date/Time Associated Diagnosis AL PURE TONE AUDIOMETRY Routine 12/01/2018 AIR ONLY from Last 3 Months Results * AL PURE TONE AUDIOMETRY AIR ONLY (12/01/2018) Narrative Performed At Performing Organization Address City/State/Zipcode Phone Number IN CLINIC from Last 3 Months Insurance Payer Benefit Subscriber ID Type Phone Address Plan / Group MEDICARE MEDICARE xxxxxxxxxxx Medicare PART A AND B BCBS [place] BCBS xxxxxxxxxxxx Medicare SUPPLEMENT ([place]) [place] [address] Advance Directives Patient has advance care planning documents on file. For more information, please contact: [facility] [address] [place] [address]
--- OUTSIDE RECORDS SUMMARY | 2019-01-25 07:20 | XMS REPORT | Encounter Summary ---
Author Author [facility] Organization [facility] Address Unknown Phone Unavailable Care Team Providers Care Diagnostic Technician Name Role Phone Luciano Olson PCP Reason for Visit * Reason Comments Cochlear Implant Encounter Details Care Team Description Date Type Department Sirena Ortiz AUD Sensorineural hearing loss, bilateral 12/01/2018 Clinical [facility] Support Physicians - ENT [address] [facility] [address] [place] [address] Social History Date Tobacco Use [...] Sirena Ortiz AUD - 12/01/2018 1:30 PM PHYSICAL SCIENCES PROFESSOR Jane Rudolph was seen in the clinic [...] 08/25/[address] Don Sanon / [facility] Equipment: Ear Processor Serial Number Magnet Strength Processor Condition right Marsha CI Q90 [id number]* new right Marsha CI Q90 [id number] new accessory Kirby Pen Paired & [...] hearing her own voice in harmony, [employer] Rock Singer almond blancher hand was utilized for mapping. Several parameters were [...] 37% 36% Residual Hearing Check: Pre op PIG IRON LOADER: Right: 92 dB Left:82 dB Today: Right: [...] Ms. Rudolph should return for reprogramming 02/23/19 ICAL SCIENCES PROFESSOR in this encounter Plan of Treatment Not on fileas of this encounter Procedures Comments Procedure Name Priority Date/Time Associated Diagnosis ME PURE TONE AUDIOMETRY Routine 12/01/2018 AIR ONLY in this encounter Visit Diagnoses Diagnosis Sensorineural hearing loss, bilateral in this encounter
--- OUTSIDE RECORDS SUMMARY | 2019-01-25 07:22 | XMS REPORT | Continuity of Care Document ---
Author Author [facility] Organization [facility] Address Unknown Phone Unavailable Allergies Active Description Code Type Severity Reaction Onset Reported/Identified Relationship to Patient Clinical Status Yes NO KNOWN DRUG ALLERGIES UNKNOWN NO KNOWN DRUG ALLERG Yes No Known Drug Allergies [id number] Drug Allergy Unknown N/A 01/17/2019 Medications Medication Packaging Start Date Stop Date [...] MD Ot 386.00 MENIERE'S DISEASE, UNSPECIFIED 02/23/2014 NROI HERNANDES MD Ot 401.9 HYPERTENSION NOS 02/23/2014 [...] Ricci Ot 244.9 02/12/2015 GRETA RODRÍGUEZ, NORI Ricci Ot 272.4 02/12/2015 GRETA RODRÍGUEZ, NORI Ricci [...] RODRÍGUEZ, NORI Ricci Ot V86.0 04/16/2015 ANTHONY LISABLILY Colby COIL CLEANER Ot 174.4 04/16/2015 ANTHONY SARINA Colby COIL CLEANER Ot V16.8 04/16/2015 ANTHONY SARINA Colby COIL CLEANER Ot V58.69 04/16/2015 ANTHONY SARINA S COIL CLEANER Ot V86.0 05/01/2015 ANTHONY SARINA S COIL CLEANER Ot 174.4 05/01/2015 ANTHONY SARINA Colby COIL CLEANER Ot V16.8 05/01/2015 ANTHONY SARINA Colby COIL CLEANER Ot V58.69 05/01/2015 ANTHONY SARINA Colby COIL CLEANER Ot V86.0 05/21/2015 GRETA RODRÍGUEZ, NORI Ricci Ot 174.4 MAL BLADIMIR BREAST [...] RODRÍGUEZ, NORI Ricci Ot E03.9 11/02/2015 GRETA RODRÍGUEZ, NORI Radhames Ot E78.5 11/02/2015 GRETA RODRÍGUEZ, [...] NEOPLASM OF UPPER-OUTER QUADRANT O 11/20/2015 GRETA RODÍRGUEZ, NORI Ricci Ot E03.9 HYPOTHYROIDISM, UNSPECIFIED 11/20/2015 GRETA RODRÍGUEZ, NORI Ricci Ot E78.5 HYPERLIPIDEMIA, UNSPECIFIED 11/20/2015 GRETA RODRÍGUEZ, NORI Ricci Ot H81.09 MENIERE'S DISEASE, UNSPECIFIED EAR 11/20/2015 GRETA RODRÍGUEZ, NORI Ricci Ot I10 ESSENTIAL (PRIMARY) HYPERTENSION 11/20/2015 GRETA RODRÍGUEZ, NORI Ricci Ot Z17.0 ESTROGEN RECEPTOR POSITIVE STATUS [ER+] 11/20/2015 GRETA RODRÍGUEZ, NORI Ricci Ot Z79.899 OTHER SENIOR CARE (CURRENT) DRUG THERAPY 11/20/2015 GRETA RODRÍGUEZ, NORI Ricci Ot Z80.9 FAMILY HISTORY OF MALIGNANT NEOPLASM, UN 01/02/2016 SARINA CRUZ COIL CLEANER Ot 174.4 01/02/2016 CRUZSARINA Colby COIL CLEANER Ot V16.8 01/02/2016 ANTHONYSARINA COIL CLEANER Ot V58.69 01/02/2016 ANTHONYSARINA COIL CLEANER Ot V86.0 01/02/2016 GRETA RODRÍGUEZ, NORI Radhames [...] GRETA RODRÍGUEZ, NORI K Ot C50.412 01/07/2016 GREAT RODRÍGUEZ, NORI K Ot Z12.31 01/28/2016 GRETA RODRÍGUEZ, NORI K Ot C50.412 01/28/2016 GRETA RODRÍGUEZ, [...] NORI K Ot Z80.9 02/28/2016 GRETA RODRÍGUEZ, ONRI K Ot C50.419 02/28/2016 GRETA RODRÍGUEZ, NORI Ricci Ot E03.9 02/28/2016 GRETA RODRÍGUEZ, NORI Ricci Ot E78.5 02/28/2016 GRETA RODRÍGUEZ, NORI Ricci Ot H81.09 02/28/2016 GRETA RODRÍGUEZ, NORI Ricci Ot I10 02/28/2016 GRETA RODRÍGUEZ, NORI Ricci Ot Z17.0 02/28/2016 GRETA RODRÍGUEZ, NORI Ricci Ot Z79.899 02/28/2016 GRETA RODRÍGUEZ, NORI Ricci Ot Z80.9 04/08/2016 GRETA RODRÍGUEZ, NORI Ricci [...] GRETA RODRÍGUEZ, NORI Ricci Ot Z79.899 OTHER SUPERVISOR BAKING (CURRENT) DRUG THERAPY 04/08/2016 GRETA RODRÍGUEZ, NORI [...] GRETA RODRÍGUEZ, NORI Ricci Ot Z79.899 OTHER SUPERVISOR BAKING (CURRENT) DRUG THERAPY 04/16/2016 GRETA RODRÍGUEZ, NORI [...] 05/27/2016 NORI HERNANDES MD Ot Z79.899 OTHER SENIOR CARE (CURRENT) DRUG THERAPY 05/27/2016 NORI HERNANDES MD [...] 08/28/2016 NORI HERNANDES MD Ot Z79.899 OTHER SUPERVISOR BAKING (CURRENT) DRUG THERAPY 08/28/2016 NORI HERNANDES MD Ot Z80.9 FAMILY HISTORY OF MALIGNANT NEOPLASM, UN 09/04/2016 SARINA CRUZ COIL CLEANER Ot 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 09/04/2016 SARINA CRUZ COIL CLEANER Ot V16.8 FAMILY HX-MALIGNANCY NEC 09/04/2016 SARINA CRUZ COIL CLEANER Ot V58.69 OTH MED,LT,CURRENT USE 09/04/2016 SARINA CRUZ COIL CLEANER Ot V86.0 ESTROGEN RECEPTOR POSITIVE STATUS [ER+] [...] Ot H81.09 MENIERE'S DISEASE, UNSPECIFIED EAR 09/04/2016 NORI HERNANDES MD, Ot I10 ESSENTIAL (PRIMARY) HYPERTENSION 09/04/2016 NORI HERNANDES MD, Ot Z17.0 ESTROGEN RECEPTOR POSITIVE STATUS [ER+] 09/04/2016 NORI HERNANDES MD, Ot Z79.899 OTHER SENIOR CARE (CURRENT) DRUG THERAPY 09/04/2016 NORI HERNANDES MD, [...] PATHO 09/04/2016 NORI HERNANDES MD, Ot Z79.811 SUPERVISOR BAKING (CURRENT) USE OF AROMATASE INH 09/09/2016 NORI HERNANDES MD, Ot C50.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 09/09/2016 NORI HERNANDES MD, Ot M81.8 OTHER OSTEOPOROSIS WITHOUT CURRENT PATHO 09/09/2016 NORI HERNANDES MD, Ot Z79.811 SENIOR CARE (CURRENT) USE OF AROMATASE INH 09/25/2016 NORI HERNANDES MD, Ot C50.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 09/25/2016 NORI HERNANDES MD, Ot M81.8 OTHER OSTEOPOROSIS WITHOUT CURRENT PATHO 09/25/2016 NORI HERNANDES MD, Ot Z79.811 SUPERVISOR BAKING (CURRENT) USE OF AROMATASE INH 10/14/2016 GRETA [...] 10/14/2016 NORI HERNANDES MD Ot Z79.899 OTHER SENIOR CARE (CURRENT) DRUG THERAPY 10/14/2016 NORI HERNANDES MD [...] 10/15/2016 NORI HERNANDES MD Ot Z79.899 OTHER SUPERVISOR BAKING (CURRENT) DRUG THERAPY 10/15/2016 NORI HERNANDES MD [...] 11/25/2016 NORI HERNANDES MD Ot Z79.899 OTHER SENIOR CARE (CURRENT) DRUG THERAPY 11/25/2016 GRETA RODRÍGUEZ, NORI [...] 02/26/2017 NORI HERNANDES MD Ot Z79.899 OTHER SENIOR CARE (CURRENT) DRUG THERAPY 02/26/2017 ONRI HERNANDES MD Ot Z80.9 FAMILY HISTORY OF [...] 04/08/2017 NORI HERNANDES MD Ot Z79.899 OTHER SENIOR CARE (CURRENT) DRUG THERAPY 04/08/2017 NORI HERNANDES MD [...] 04/15/2017 NORI HERNANDES MD Ot Z79.899 OTHER SUPERVISOR BAKING (CURRENT) DRUG THERAPY 04/15/2017 NORI HERNANDES MD [...] 05/26/2017 NORI HERNANDES MD Ot Z79.899 OTHER SENIOR CARE (CURRENT) DRUG THERAPY 05/26/2017 NORI HERNANDES MD [...] 05/27/2017 NORI HERNANDES MD Ot Z79.899 OTHER SUPERVISOR BAKING (CURRENT) DRUG THERAPY 05/27/2017 NORI HERNANDES MD [...] 09/03/2017 IMELDA TABARES MD Ot Z79.899 OTHER SUPERVISOR BAKING (CURRENT) DRUG THERAPY 09/03/2017 IMELDA TABARES MD [...] 10/09/2017 IMELDA TABARES MD Ot Z79.899 OTHER SENIOR CARE (CURRENT) DRUG THERAPY 10/09/2017 IMELDA TABARES MD [...] 10/14/2017 IMELDA TABARES MD Ot Z79.899 OTHER SENIOR CARE (CURRENT) DRUG THERAPY 10/14/2017 IMELDA TABARES MD [...] 12/01/2017 IMELDA TABARES MD Ot Z79.899 OTHER SENIOR CARE (CURRENT) DRUG THERAPY 12/01/2017 IMELDA TABARES MD [...] 03/09/2018 IMELDA TABARES MD Ot Z79.899 OTHER SENIOR CARE (CURRENT) DRUG THERAPY 03/09/2018 IMELDA TABARES MD [...] 04/06/2018 IMELDA TABARES MD Ot Z79.899 OTHER SUPERVISOR BAKING (CURRENT) DRUG THERAPY 04/06/2018 IMELDA TABARES MD [...] 04/14/2018 IMELDA TABARES MD Ot Z79.899 OTHER SENIOR CARE (CURRENT) DRUG THERAPY 04/14/2018 IMELDA TABARES MD [...] 06/01/2018 IMELDA TABARES MD Ot Z79.899 OTHER SENIOR CARE (CURRENT) DRUG THERAPY 06/01/2018 IMELDA TABARES MD [...] 06/02/2018 IMELDA TABARES MD Ot Z79.899 OTHER SUPERVISOR BAKING (CURRENT) DRUG THERAPY 06/02/2018 IMELDA TABARES MD [...] 06/07/2018 IMELDA TABARES MD Ot Z79.899 OTHER SUPERVISOR BAKING (CURRENT) DRUG THERAPY 06/07/2018 IMELDA TABARES MD Ot Z80.9 FAMILY HISTORY OF MALIGNANT NEOPLASM, UN 06/09/2018 SARINA CRUZ COIL CLEANER Ot 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 06/09/2018 SARINA CRUZ COIL CLEANER Ot V16.8 FAMILY HX-MALIGNANCY NEC 06/09/2018 SARINA CRUZ COIL CLEANER Ot V58.69 OTH MED,LT,CURRENT USE 06/09/2018 SARINA CRUZ COIL CLEANER Ot V86.0 ESTROGEN RECEPTOR POSITIVE STATUS [ER+] [...] PATHO 06/09/2018 NORI HERNANDES MD Ot Z79.811 SENIOR CARE (CURRENT) USE OF AROMATASE INH 06/09/2018 IMELDA [...] 06/09/2018 IMELDA TABARES MD Ot Z79.899 OTHER SUPERVISOR BAKING (CURRENT) DRUG THERAPY 06/09/2018 IMELDA TABARES MD [...] 10/11/2018 IMELDA TABARES MD Ot Z79.899 OTHER SENIOR CARE (CURRENT) DRUG THERAPY 10/11/2018 IMELDA TABARES MD Ot Z80.9 FAMILY HISTORY [...] 11/30/2018 IMELDA TABARES MD Ot Z79.899 OTHER SUPERVISOR BAKING (CURRENT) DRUG THERAPY 11/30/2018 IMELDA TABARES MD [...] 12/02/2018 IMELDA TABARES MD Ot Z79.899 OTHER SUPERVISOR BAKING (CURRENT) DRUG THERAPY 12/02/2018 IMELDA TABARES MD Ot Z80.9 FAMILY HISTORY OF MALIGNANT NEOPLASM, UN 01/07/2019 SARINA CRUZ COIL CLEANER Ot 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 01/07/2019 SARINA CRUZ COIL CLEANER Ot V16.8 FAMILY HX-MALIGNANCY NEC 01/07/2019 SARINA CRUZ COIL CLEANER Ot V58.69 OT MED,LT,CURRENT USE 01/07/2019 SARINA CRUZ COIL CLEANER Ot V86.0 ESTROGEN RECEPTOR POSITIVE STATUS [ER+] 01/07/2019 NORI HERNANDES MD Ot 174.9 MALIGN NEOPL BREAST NOS 01/07/2019 NORI HERNANDES MD Ot 733.00 OSTEOPOROSIS NOS 01/07/2019 NORI HERNANDES MD Ot V07.4 HORMONE REPLACEMENT THERAPY (POSTMENOPAU 01/07/2019 NORI HERNANDES MD Ot V82.81 SCREENING FOR OSTEOPOROSIS 01/07/2019 [...] ENCNTR SCREEN MAMMOGRAM FOR MALIGNANT NE 01/07/2019 ONRI HERNANDES MD Ot C50.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 01/07/2019 NORI HERNANDES MD Ot M81.8 OTHER OSTEOPOROSIS WITHOUT CURRENT PATHO 01/07/2019 NORI HERNANDES MD Ot Z79.811 SUPERVISOR BAKING (CURRENT) USE OF AROMATASE INH 01/07/2019 IMELDA [...] 01/07/2019 IMELDA TABARES MD, Ot Z79.899 OTHER SENIOR CARE (CURRENT) DRUG THERAPY 01/07/2019 IMELDA TABARES MD [...] OTH ABN AND INCONCLUSIVE FINDINGS ON DX 01/17/2019 IMELDA TABARES MD Ot R92.0 MAMMOGRAPHIC MICROCALCIFICATION FOUND ON 01/17/2019 IMELDA TABARES MD Ot C50.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 01/17/2019 IMELDA TABARES MD Ot E03.9 HYPOTHYROIDISM, UNSPECIFIED 01/17/2019 IMELDA TABARES MD Ot E78.5 HYPERLIPIDEMIA, UNSPECIFIED 01/17/2019 IMELDA TABARES MD Ot I10 ESSENTIAL (PRIMARY) HYPERTENSION 01/17/2019 IMELDA TABARES MD Ot Z17.0 ESTROGEN RECEPTOR POSITIVE STATUS [ER+] 01/17/2019 IMELDA TABARES MD Ot Z79.899 OTHER SENIOR CARE (CURRENT) DRUG THERAPY 01/17/2019 IMELDA TABARES MD Ot Z80.9 FAMILY HISTORY OF MALIGNANT NEOPLASM, UN 01/17/2019 IMELDA TABARES MD Ot C50.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 01/17/2019 IMELDA TABARES MD Ot C50.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 01/17/2019 IMELDA TABARES MD Ot E03.9 HYPOTHYROIDISM, UNSPECIFIED 01/17/2019 IMELDA TABARES MD Ot E78.5 HYPERLIPIDEMIA, UNSPECIFIED 01/17/2019 IMELDA TABARES MD Ot I10 ESSENTIAL (PRIMARY) HYPERTENSION 01/17/2019 IMELDA TABARES MD Ot Z17.0 ESTROGEN RECEPTOR POSITIVE STATUS [ER+] 01/17/2019 IMELDA TABARES MD Ot Z79.899 OTHER SUPERVISOR BAKING (CURRENT) DRUG THERAPY 01/17/2019 IMELDA TABARES MD Ot Z80.9 FAMILY HISTORY OF MALIGNANT NEOPLASM, UN 01/17/2019 IMELDA TABARES MD Ot C50.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 01/19/2019 KENYON RODRÍGUEZ, JOSE M Ot E03.9 HYPOTHYROIDISM, UNSPECIFIED 01/19/2019 KENYON RODRÍGUEZ, JOSE M Ot E04.9 NONTOXIC GOITER, UNSPECIFIED 01/19/2019 JOSE PRESCOTT MD Ot I10 ESSENTIAL (PRIMARY) HYPERTENSION 01/19/2019 JOSE PRESCOTT MD, Ot M81.0 AGE-RELATED OSTEOPOROSIS W/O CURRENT PAT 01/19/2019 JOSE PRESCOTT MD, Ot R92.0 MAMMOGRAPHIC MICROCALCIFICATION FOUND ON 01/19/2019 JOSE PRESCOTT MD, Ot S22.42XA MULTIPLE FRACTURES OF RIBS, LEFT SIDE, I 01/19/2019 JOSE PRESCOTT MD Ot S27.321A CONTUSION OF LUNG, UNILATERAL, INITIAL E 01/19/2019 JOSE PRESCOTT MD, Ot W18.2XXA FALL IN (INTO) SHOWER OR EMPTY BATHTUB, 01/19/2019 JOSE PRESCOTT MD Ot Y92.012 BATHROOM OF SINGLE-FAMILY (PRIVATE) HOUS 01/19/2019 JOSE PRESCOTT MD, Ot Y93.E1 ACTIVITY, PERSONAL BATHING AND SHOWERING 01/19/2019 JOSE PRESCOTT MD, Ot Z79.899 OTHER SENIOR CARE (CURRENT) DRUG THERAPY 01/19/2019 JOSE PRESCOTT MD, Ot Z85.3 PERSONAL HISTORY OF MALIGNANT NEOPLASM O 01/20/2019 IMELDA TABARES MD Ot C50.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 Procedures There is no data. Results Test [...] INR 0.9 1.0-4.0 Protime 10.5 Sec 9.9-12.8 [id number] - 06/09/18 11:16 Serum or plasma urea nitrogen measurement (mass/volume) 17 mg/dL 7-18 Serum or plasma creatinine measurement (mass/volume) 0.83 mg/dL 0.60-1.30 Serum or plasma urea nitrogen/creatinine mass ratio 20 NRG Serum or plasma creatinine measurement with calculation of estimated glomerular filtration rate > NRG Complete blood count (CBC) with automated white blood cell (WBC) differential - 01/17/19 12:42 Blood leukocytes automated count (number/volume) 15.3 10*3/uL 4.3-11.0 Blood erythrocytes automated count (number/volume) 4.60 10*6/uL 4.35-5.85 Venous blood hemoglobin measurement (mass/volume) 13.3 g/dL 11.5-16.0 Blood hematocrit (volume fraction) 42 % 35-52 Automated erythrocyte mean corpuscular volume 90 [foz_us] 80-99 Automated erythrocyte mean corpuscular hemoglobin (mass per erythrocyte) 29 pg 25-34 Automated erythrocyte mean corpuscular hemoglobin concentration measurement ( mass/volume) 32 g/dL 32-36 Automated erythrocyte distribution width ratio 12.8 % 10.0-14.5 Automated blood platelet count (count/volume) 205 10*3/uL 130-400 Automated blood platelet mean volume measurement 9.3 [foz_us] 7.4-10.4 Automated blood neutrophils/100 leukocytes 88 % 42-75 Automated blood lymphocytes/100 leukocytes 8 % 12-44 Blood monocytes/100 leukocytes 4 % 0-12 Automated blood eosinophils/100 leukocytes 0 % 0-10 Automated blood basophils/100 leukocytes 0 % 0-10 Blood neutrophils automated count (number/volume) 13.4 10*3 1.8-7.8 Blood lymphocytes automated count (number/volume) 1.3 10*3 1.0-4.0 Blood monocytes automated count (number/volume) 0.6 10*3 0.0-1.0 Automated eosinophil count 0.0 10*3/uL 0.0-0.3 Automated blood basophil count (count/volume) 0.0 10*3/uL 0.0-0.1 Comprehensive metabolic panel - 01/17/19 12:42 Serum or plasma sodium measurement (moles/volume) 137 mmol/L 135-145 Serum or plasma potassium measurement (moles/volume) 4.1 mmol/L 3.6-5.0 Serum or plasma chloride measurement (moles/volume) 101 mmol/L 98-107 Carbon dioxide 25 mmol/L 21-32 Serum or plasma anion gap determination (moles/volume) 11 mmol/L 5-14 Serum or plasma urea nitrogen measurement (mass/volume) 20 mg/dL 7-18 Serum or plasma creatinine measurement (mass/volume) 0.83 mg/dL 0.60-1.30 Serum or plasma urea nitrogen/creatinine mass ratio 24 NRG Serum or plasma creatinine measurement with calculation of estimated glomerular filtration rate > NRG Serum or plasma glucose measurement (mass/volume) 120 mg/dL 70-105 Serum or plasma calcium measurement (mass/volume) 10.5 mg/dL 8.5-10.1 Serum or plasma total bilirubin measurement (mass/volume) 0.4 mg/dL 0.1-1.0 Serum or plasma alkaline phosphatase measurement (enzymatic activity/volume) 94 U/L 40-136 Serum or plasma aspartate aminotransferase measurement (enzymatic activity/ volume) 23 U/L 5-34 Serum or plasma alanine aminotransferase measurement (enzymatic activity/volume ) 17 U/L 0-55 Serum or plasma protein measurement (mass/volume) 7.6 g/dL 6.4-8.2 Serum or plasma albumin measurement (mass/volume) 4.8 g/dL 3.2-4.5 Blood manual differential performed detection - 01/17/19 12:42 Blood monocytes/100 leukocytes 5 % NRG Manual blood segmented neutrophils/100 leukocytes 86 % NRG Blood band neutrophils/100 leukocytes 0 % NRG Manual blood lymphocytes/100 leukocytes 9 % NRG Manual eosinophils/100 leukocytes in nose 0 % NRG Manual blood basophils/100 leukocytes 0 % NRG Blood erythrocyte morphology finding identification NORMAL NRG Encounters ACCT No. Visit Date/Time Discharge Status Pt. Type Provider Facility Loc./Unit Complaint [id number] 01/17/2019 14:56:00 01/19/2019 16:45:00 DIS Inpatient JOSE PRESCOTT MD [facility] 4TH MULTIPLE RIB FRACTURES, FALL,THYROID MASS [id number] 01/13/2019 12:29:00 01/13/2019 23:59:59 CLS Preadmit IMELDA TABARES MD [facility] RAD MALIGNANT TUMOR OF LT BREAST [id number] 01/13/2019 08:08:00 01/13/2019 23:59:59 CLS Outpatient IMELDA TABARES MD [facility] RAD ABN MAMMO R92.8 [id number] 01/07/2019 09:47:00 01/07/2019 23:59:59 CLS Outpatient IMELDA TABARES MD [facility] RAD MALGINANT TUMOR OF BREAST [id number] 12/01/2018 00:09:00 12/01/2018 23:59:59 CLS Preadmit IMELDA TABARES MD [facility] ONC [id number] 09/01/2018 12:45:00 11/30/2018 00:01:00 DIS Outpatient IMELDA TABARES MD [facility] ONC [id number] 09/09/2018 10:30:00 09/09/2018 23:59:59 CLS Preadmit IMELDA TABARES MD [facility] RAD MALIGNANT TUMOR OF BREAST [id number] 06/09/2018 10:52:00 06/09/2018 23:59:59 CLS Outpatient FERN HAYES MD [facility] RAD HEARING LOSS H91.90 [id number] 03/03/2018 13:00:00 06/01/2018 00:01:00 DIS Outpatient IMELDA TABARES MD [facility] ONC [id number] 01/07/2018 10:18:00 01/07/2018 23:59:59 CLS Outpatient IMELDA TABARES MD [facility] RAD Z12.31 SCREENING MAMMO [id number] 09/02/2017 14:34:00 12/01/2017 00:01:00 DIS Outpatient IMELDA TABARES MD [facility] ONC [id number] 02/25/2017 09:40:00 05/26/2017 00:01:00 DIS Outpatient NORI HERNANDES MD [facility] ONC [id number] 08/27/2016 09:25:00 11/25/2016 00:01:00 DIS Outpatient NORI HERNANDES MD [facility] ONC [id number] 09/04/2016 10:25:00 09/04/2016 23:59:59 CLS Outpatient NORI HERNANDES MD [facility] RAD C50.412,M81.8 [id number] 02/27/2016 09:29:00 05/27/2016 00:01:00 DIS Outpatient NORI HERNANDES MD [facility] ONC [id number] 01/02/2016 08:57:00 01/02/2016 23:59:59 CLS Outpatient NORI HERNANDES MD [facility] RAD SCREENING [id number] 08/22/2015 09:34:00 11/20/2015 00:01:00 DIS Outpatient NORI HERNANDES MD [facility] ONC [id number] 02/20/2015 09:31:00 05/21/2015 00:01:00 DIS Outpatient NORI HERNANDES MD [facility] ONC [id number] 03/20/2015 10:57:00 03/20/2015 23:59:59 CLS Outpatient SARINA CRUZ [facility] ONC [id number] 01/01/2015 10:51:00 01/01/2015 23:59:59 CLS Outpatient NORI HERNANDES MD [facility] RAD SCREENING [id number] 06/27/2014 09:05:00 09/25/2014 00:01:00 DIS Outpatient NORI HERNANDES MD [facility] ONC [id number] 03/01/2014 08:57:00 05/30/2014 00:01:00 DIS Outpatient NORI HERNANDES MD [facility] ONC [id number] 11/29/2013 09:08:00 02/23/2014 11:17:00 DIS Outpatient NORI HERNANDES MD [facility] ONC [id number] 12/30/2013 07:47:00 12/30/2013 23:59:59 CLS Outpatient NORI HERNANDES MD [facility] RAD CA LEFT BREAST [id number] 08/02/2013 08:55:00 10/23/2013 00:01:00 DIS Outpatient [id number] 09/09/2013 08:08:00 09/09/2013 23:59:59 CLS Outpatient NORI HERNANDES MD [facility] RAD CA BREAST,OSTEOPOROSIS [id number] 04/27/2013 15:40:00 06/29/2013 00:01:00 DIS Outpatient [id number] 01/24/2019 08:26:00 ACT Outpatient KENYON RODRÍGUEZ, JOSE Islas [facility] RAD LEFT THYROID MASS [id number] 01/06/2017 09:05:00 Document Registration [id number] 10/24/2014 11:01:00 Document Registration [id number] 08/22/2015 10:08:17 ACT Document Registration [id number] 06/24/2017 00:00:00 06/24/2017 11:08:00 DIS Outpatient Adonay Gunter [id number] 06/17/2017 10:53:00 06/17/2017 23:59:00 DIS Outpatient Adonay Gunter [id number] 02/21/2017 11:24:00 02/21/2017 23:59:00 DIS Outpatient Mayela Luong 199906/24/2017 07:57:27 Document Registration
== END 2019-01-19 16:45 | disposition home or self-care (01) | DRG 184 ==
LOC: ER 09:54 → EDUNIT# 09:54 → 4TH 14:56 → UNDOADMOB 14:56 → UNDODISOB 01-19 16:45
PROVIDERS: ADMIT Surgery; ATTEND Surgery
DX: S22.42XA Multiple fractures of ribs, left side, initial encounter for closed fracture (principal); S27.321A Contusion of lung, unilateral, initial encounter; E04.9 Nontoxic goiter, unspecified; E03.9 Hypothyroidism, unspecified; I10 Essential (primary) hypertension; M81.0 Age-related osteoporosis without current pathological fracture; R92.0 Mammographic microcalcification found on diagnostic imaging of breast; W18.2XXA Fall in (into) shower or empty bathtub, initial encounter; Y92.012 Bathroom of single-family (private) house as the place of occurrence of the external cause; Y93.E1 Activity, personal bathing and showering; Z79.899 Other long term (current) drug therapy; Z85.3 Personal history of malignant neoplasm of breast
CPT/HCPCS: 36415; 71045; 71046; 71100; 71260; 74177; 76536; 80053; 85007; 85027; 90471; 94664

== ENCOUNTER → 2019-01-24 | Outpatient (CLI) | payer MEDICARE ==
[~2019-01-24] VITALS: Ht 175.3 cm; Wt 79.4 kg
[~2019-01-24] MED LIST changes: +AMLO5TAB9 PO; +ATEN50TA PO; +CA C1TAB70 PO; +CALC-904 PO; +CHOL400C9 PO; +DOCU-143 PO; +FOLI0.8T PO; +FURO20TA4 PO; +HYDR-3812 PO; +LATA2.5D5 OU; +LEVO25TA5 PO; +LIDOCAINE 1% INJ 20 ML 20 ML VIAL INJ ONE; +POTA10TA10 PO; +SIMV20TA3 PO; +TIMO5DRO5 OU
--- NOTE | 2019-01-24 09:54 | Diagnostic Imaging Report ---
INDICATION: Left thyroid mass. Patient presents for ultrasound-guided biopsy. TECHNIQUE: The patient was brought to the procedure room and placed on the table in the supine position. Ultrasound imaging over the left neck was performed to evaluate for an appropriate entry site. The neck was then prepped and draped in the usual sterile fashion. A small amount of 1% lidocaine was utilized for local anesthesia. A total of 4 passes was made into the solid mass in the left lobe of the thyroid with a 25-gauge needle. Fine needle aspiration technique was utilized. A total of two passes was made into the mass with a 20-gauge Temno needle and two core biopsies were obtained. Hemostasis was obtained using manual compression. The patient tolerated the procedure well and left the Department in stable condition. IMPRESSION: Ultrasound guided left thyroid mass fine-needle aspiration and core biopsy. Pathology results are pending. Dictated by: Dictated on workstation # [id number]
== END ==
LOC: RAD 08:26
PROVIDERS: ATTEND Surgery
DX: E04.1 Nontoxic single thyroid nodule (principal)
CPT/HCPCS: 88305

== ENCOUNTER → 2019-01-28 | Outpatient (CLI) | payer MEDICARE ==
[~2019-01-28] VITALS: Ht 175.3 cm; Wt 79.4 kg
--- NOTE | 2019-01-28 19:46 | Diagnostic Imaging Report ---
INDICATION: Left breast calcifications. Patient presents for stereotactic biopsy. PROCEDURE: Patient was brought to the stereotactic suite and placed in a chair in a sitting upright position. The left breast is positioned lateral medial. Calcifications in the slightly outer left breast, posterior depth, were stereotactically targeted. The skin of the lateral left breast was prepped and draped in the usual sterile fashion. A small amount of 1% lidocaine was utilized for local anesthesia. An 8-gauge needle was advanced into the left breast per stereotactic coordinates. A total of four core biopsies were obtained with an 8-gauge needle utilizing a vacuum-assisted device. Specimen radiograph was obtained and the samples demonstrating the majority of the calcifications located within core labeled # 3. There are also some consultations in sample # 2. The marker clip was then deployed. The needle was removed and hemostasis was obtained using manual compression. Followup CC and ML mammography demonstrates the clip in the posterior central left breast. Previously noted calcifications are no longer visualized. IMPRESSION: Stereotactic biopsy of the left breast obtaining the cluster of microcalcifications in the posterior and slightly outer left breast. Pathology results are currently pending. Dictated by: Dictated on workstation # [id number]
== END ==
LOC: RAD 08:22
PROVIDERS: ATTEND Internal Medicine Hematology & Oncology
DX: C50.412 Malignant neoplasm of upper-outer quadrant of left female breast (principal); D24.2 Benign neoplasm of left breast
CPT/HCPCS: 19081; 88305

== ENCOUNTER 2019-02-15 12:23 | Outpatient (CLI) | payer MEDICARE ==
[~2019-02-15] VITALS: Ht 175.3 cm; Wt 79.4 kg
[~2019-02-15 12:23] MED LIST changes: -LIDOCAINE 1% INJ 20 ML 20 ML VIAL INJ ONE
[2019-02-15 12:30] VITALS: BP 119/62
[2019-02-15] MEDS ORDERED: ANAS1TAB7 PO (13:42)
[2019-02-15] MEDS ORDERED: morphine INJ 10 MG/ML 1ML (SYR OR VIAL) IM ONE (14:50)
[2019-02-15] MEDS ORDERED: morphine INJ 10 MG/ML 1ML (SYR OR VIAL) ONE (14:51)
--- NOTE | 2019-02-15 16:00 | Diagnostic Imaging Report ---
INDICATION: Post thoracentesis. TECHNIQUE: Single-view chest, 3:14 p.m. CORRELATION STUDY: 01/18/2019. FINDINGS: Heart size is enlarged. Mediastinum is prominent. Vasculature overall is mildly prominent. There has been some decrease in size of left pleural effusion post thoracentesis. Fluid as well as consolidation in the left lung base does remain. Displaced left posterolateral rib fracture deformities are noted. No appreciable pneumothorax. IMPRESSION: 1. Slight decrease in size of pleural effusion and slight improvement in aeration of left lung base post thoracentesis. No pneumothorax. Dictated by: Dictated on workstation # [id number]
--- NOTE | 2019-02-15 16:10 | NUR ---
POST PROCEDURE VS, T 97.9, P 80, R 18, B/P 107/64, SAO2 94% ON ROOM AIR. STATES PAIN IS "A LOT BETTER", RATES AT 2 OR 3. INFREQUENT DRY, GENTLE, NON-PRODUCTIVE COUGH. POST PROCEDURE CHEST X-RAY DONE, REPORT RECEIVED. OPSITE OVER 2X2 GAUZE DRESSING D/I TO LEFT UPPER BACK PROCEDURE SITE. ALERT. STATES SHE IS READY FOR DISMISSAL.
--- NOTE | 2019-02-15 20:09 | HISTORY AND PHYSICAL ---
DATE OF SERVICE: ATTENDING PRIMARY CARE PHYSICIAN: Luciano Olson DO HISTORY OF PRESENT ILLNESS: The patient is a 68-year-old female who presented to her primary care physician's office with shortness of breath, especially exertion as well as the development of a cough. She was involved in a fall in her bathtub while taking a shower 01/17/2019. She fell on her left chest and did have significant pain and was seen and admitted to [facility] and was found to have multiple rib fractures. She was treated conservatively with incentive spirometer, breathing treatments as well as adequate pain control and follow up chest x-rays, which appeared normal. She was then discharged home and she states that she was doing well; however always had some level of pain in the left chest due to her rib fractures. However, she also did report the exertional shortness of breath, which worsened over time. This worsened to the point where it was difficult for her to ambulate and she also developed a cough and then presented to her primary care physician where an x-ray was performed, which did show a significant pleural effusion approximately encompassing 75% of the left thoracic cavity. She does not report any fever nor chills. She was instructed to come to [facility] surgery for a therapeutic as well as diagnostic thoracentesis. PAST MEDICAL HISTORY: Hypercholesterolemia, hypothyroid, hypertension, history of breast cancer. PAST SURGICAL HISTORY: Left breast biopsy in 1999 benign, hemithyroidectomy 2000 benign, right total knee arthroplasty 2002, left total knee arthroplasty 2010, left breast lumpectomy for malignancy as well as sentinel node and radiation therapy in May 2013. ALLERGIES: No known drug allergies. MEDICATIONS: Calcium, magnesium, zinc, copper, manganese, folic acid, vitamin D3. SOCIAL HISTORY: Negative smoke, negative alcohol. FAMILY HISTORY: Mother, myocardial infarction in her 50s. VITAL SIGNS: Stable, afebrile. REVIEW OF SYSTEMS: Well-nourished female, in no acute distress. She is not experiencing any shortness of breath or difficulty breathing. No chest pain, palpitations, diaphoresis. Worsening exertional shortness of breath as well as the development of cough in the past week. She also does have a left-sided chest pain. No sputum production. No nausea, vomiting, no diarrhea or constipation. No fever, chills. No recent inadvertent weight loss. All other review of systems negative. PHYSICAL EXAMINATION: CHEST: Right chest good breath sounds. Left chest minimal breath sounds throughout the majority of the lung space. HEART: Regular, no murmurs. EXTREMITIES: No lower extremity edema. Negative Homans sign. HEENT: No scleral icterus or cervical lymphadenopathy. ABDOMEN: Soft, nontender, nondistended. SKIN: Warm, dry. ASSESSMENT AND PLAN: A 68-year-old female with a past history of trauma with multiple left-sided broken ribs. She presents with worsening shortness of breath as well as cough and x-rays performed at [facility] and found to have a significant pleural effusion on the left side. We will proceed with a diagnostic as well as therapeutic thoracentesis. Job ID: [id number] DocumentID: [id number] Dictated Date: 02/15/2019 19:44:24 Spooling Operator Date: 02/15/2019 20:09:31 Dictated By: JIMI FAIR MD
--- NOTE | 2019-02-16 03:28 | OPERATIVE REPORT ---
DATE OF SERVICE: 02/15/2019 ATTENDING PRIMARY CARE PHYSICIAN: Luciano Olson DO. PREOPERATIVE DIAGNOSIS: Symptomatic left pleural effusion secondary to trauma and multiple left-sided rib fractures. POSTOPERATIVE DIAGNOSIS: Symptomatic left pleural effusion secondary to trauma and multiple left-sided rib fractures. PROCEDURE: Left thoracentesis. SURGEON: Jimi Fair MD ANESTHESIA: Local. ESTIMATED BLOOD LOSS: Minimal. FINDINGS: A 2300 mL of blood tinged serous drainage. DISPOSITION: The patient tolerated the procedure well. INDICATIONS: The patient is a 68-year-old female who fell in the shower on 01/17/2017. She presented to the Emergency Department and was found to have multiple left-sided rib fractures and was admitted and conservatively managed and was discharged on hospital day #2. She states that she did well at home; however, over time, she did develop heaviness sensation as well as exertional shortness of breath, especially on the left side. In the past week, she said that this worsened considerably and she also developed a cough. She was seen by her primary care physician where a chest x-ray was performed, which did show a significant pleural effusion encompassing approximately 75% of her pleural cavity. She will need a thoracentesis for diagnostic as well as therapeutic value. DESCRIPTION OF PROCEDURE: The patient was placed sitting upright and leaning forward at approximately the eighth intercostal space posterolaterally. The area was prepped and draped in standard surgical fashion. A 1% lidocaine was used to anesthetize the skin, muscle layers as well as the parietal pleura. A small vertical skin incision was made using 11 blade and the trocar and catheter were then introduced withdrawing of blood tinged serous fluid. The catheter was then advanced over the trocar without any resistance. The catheter was then connected to vacuum suction containers and 2300 mL of the same blood tinged serous fluid was withdrawn. Once all the fluid was evacuated, direct pressure was placed on the entry site and an occlusive dressing was placed. We will get a post-procedure chest x-ray and discharge her home with pain medication. If she does have a recurrent shortness of breath or cough or other symptoms, we will have her follow up and get a repeat chest x-ray. Job ID: [id number] DocumentID: [id number] Dictated Date: 02/15/2019 19:49:10 Industrial Boilermaker Date: 02/16/2019 03:27:33 Dictated By: JIMI FAIR MD
== END 2019-02-15 16:10 | disposition home or self-care (01) ==
LOC: SDC 12:23
PROVIDERS: ATTEND Surgery
DX: J90 Pleural effusion, not elsewhere classified (principal); S22.42XD Multiple fractures of ribs, left side, subsequent encounter for fracture with routine healing; E78.00 Pure hypercholesterolemia, unspecified; E03.9 Hypothyroidism, unspecified; I10 Essential (primary) hypertension; Z85.3 Personal history of malignant neoplasm of breast; Z96.653 Presence of artificial knee joint, bilateral
CPT/HCPCS: 32554; 71045; 87070; 87075; 87205; 96372

== ENCOUNTER → 2019-02-22 | Outpatient (CLI) | payer MEDICARE ==
[~2019-02-22] MED LIST changes: +ANAS1TAB7 PO
--- NOTE | 2019-02-22 11:28 | Diagnostic Imaging Report ---
INDICATION: Screening for osteoporosis. COMPARISON: 09/04/2016 FINDINGS: The bone mineral density of the hips and spine was measured. The study was compared to the prior exam of 09/04/2016. The T score for the spine is 1.4. On the prior exam, the T score was 2.3. The T score for the left hip is -0.4 and for the right hip -0.6. On the prior exam, the T score for each hip was -0.2. The T score for the left femoral neck is 0.1 and for the right femoral neck -1.3. AP Spine L1-L4: [BMD (g/cm2): 1.371] [T-Score: 1.4] [Z-Score: 2.7] [BMD Previous: 1.474] [BMD % Change: -7.0] LT Hip Neck: [BMD (g/cm2): 1.0556] [T-Score: 0.1] [Z-Score: 1.5] LT Hip Total: [BMD (g/cm2):0.960] [T-Score:-0.4] [Z-Score: 0.8] [BMD Previous: 0.987] [BMD % Change: -2.5] RT Hip Neck: [BMD (g/cm2):0.853] [T-Score:-1.3] [Z-Score:0.1] RT Hip Total: [BMD (g/cm2):0.929] [T-score:-0.6] [Z-Score:0.5] [BMD Previous:0.988] [BMD % Change:-6.0] *Indicates significant change from prior examination based on 95% confidence level. World Health Organization criteria for BMD interpretation classify patients as Normal (T-score at or above -1.0), Osteopenic (T-score between -1.0 and -2.5) or Osteoporotic (T-score at or below -2.5). LIMITATIONS AND MODIFICATION: None. FRACTURE RISK (FRAX SCORE): The ten year probability of (%): Major Osteoporotic Fracture: [9.6] Hip Fracture: [1.2] IMPRESSION: 1. There has been a decrease in the bone mineral density of the hips and spine. The T-scores remain within normal limits however with the exception of the T score for the right femoral neck. That T score indicates osteopenia. 2. See below National Osteoporosis Foundation guidelines on when to potentially initiate pharmacologic therapy. Based on the National Osteoporosis Foundation Guidelines, pharmacologic treatment should be initiated in any of the following, unless clinical conditions suggest otherwise: * Any patient with prior fragility fracture of the hip or vertebrae. A spine fracture indicates 5X risk for subsequent spine fracture and 2X risk for subsequent hip fracture. * Osteoporosis (T-score <-2.5). * Postmenopausal women and men age 50 and older with low bone mass/osteopenia (T-score between -1.0 and -2.5) by DXA and 10-year major osteoporotic fracture greater than 20% or a 10-year probability of hip fracture greater than 3%. These fracture risks are supplied above in the FRAX score, if applicable. * Clinician judgement and/or patient preferences may indicate treatment for people with 10-year fracture probabilities above or below these levels. Dictated by: Dictated on workstation # [id number]
== END ==
LOC: RAD 09:58
PROVIDERS: ATTEND Internal Medicine Hematology & Oncology
DX: Z13.820 Encounter for screening for osteoporosis (principal); C50.412 Malignant neoplasm of upper-outer quadrant of left female breast; H81.03 Meniere's disease, bilateral; M85.88 Other specified disorders of bone density and structure, other site; E78.00 Pure hypercholesterolemia, unspecified; M81.0 Age-related osteoporosis without current pathological fracture
CPT/HCPCS: 77080

== ENCOUNTER → 2019-09-01 | Outpatient (CLI) | payer MEDICARE ==
[2019-09-01 14:41] LABS: BASOPHILS % (AUTO) 0 % (0-10); EOSINOPHILS # (AUTO) 0.1 10^3/uL (0.0-0.3); EOSINOPHILS % (AUTO) 1 % (0-10); HEMATOCRIT 40 % (35-52); LYMPHOCYTES # (AUTO) 2.2 X 10^3 (1.0-4.0); LYMPHOCYTES % (AUTO) 28 % (12-44); MEAN CORPUSCULAR HEMOGLOBIN 30 PG (25-34); MEAN CORPUSCULAR HGB CONC 32 G/DL (32-36); MEAN CORPUSCULAR VOLUME 91 FL (80-99); MEAN PLATELET VOLUME 9.4 FL (7.4-10.4); MONOCYTES # (AUTO) 0.5 X 10^3 (0.0-1.0); MONOCYTES % (AUTO) 7 % (0-12); NEUTROPHILS # (AUTO) 5.1 X 10^3 (1.8-7.8); NEUTROPHILS % (AUTO) 65 % (42-75); PLATELET COUNT 215 10^3/uL (130-400); RED CELL DISTRIBUTION WIDTH 13.8 % (10.0-14.5); WHITE BLOOD COUNT 7.9 10^3/uL (4.3-11.0)
[2019-09-01 14:59] LABS: ALANINE AMINOTRANSFERASE 16 U/L (0-55); ALBUMIN 4.5 GM/DL (3.2-4.5); ALKALINE PHOSPHATASE 100 U/L (40-136); BILIRUBIN,TOTAL 0.4 MG/DL (0.1-1.0); BUN/CREATININE RATIO 20; CALCIUM 9.9 MG/DL (8.5-10.1); CARBON DIOXIDE 27 MMOL/L (21-32); CHLORIDE 102 MMOL/L (98-107); CREATININE SERUM 0.84 MG/DL (0.60-1.30); GFR ESTIMATED > 60; GLUCOSE 99 MG/DL (70-105); POTASSIUM 3.9 MMOL/L (3.6-5.0); SODIUM 139 MMOL/L (135-145); TOTAL PROTEIN 7.3 GM/DL (6.4-8.2)
== END ==
LOC: ONC 14:26
PROVIDERS: ATTEND Internal Medicine Hematology & Oncology
DX: C50.412 Malignant neoplasm of upper-outer quadrant of left female breast (principal); D24.2 Benign neoplasm of left breast; E03.9 Hypothyroidism, unspecified
CPT/HCPCS: 36415; 80053; 84443; 85025; 99213

== ENCOUNTER → 2019-09-06 | Outpatient (CLI) | payer MEDICARE ==
--- NOTE | 2019-09-06 17:21 | Diagnostic Imaging Report ---
PROCEDURE: US Thyroid. TECHNIQUE: Multiple real-time grayscale images were obtained of the thyroid in various projections. INDICATION: Prior history of right thyroidectomy and negative left thyroid biopsy. This study is performed for follow-up. Correlation is made with prior thyroid ultrasound from 01/18/2019. FINDINGS: Right lobe is surgically absent. Left lobe measures 5.8 x 2.9 x 3.2 cm. Complex mixed solid and cystic mass involving left lobe of the thyroid is again noted. This measures approximately 5.4 x 2.8 x 2.3 cm. This compares with 4.5 x 2.8 x 3.2 cm on prior. Differences in measurements are likely owing to differences in measurement technique. The mass visually appears to be about the same. No new mass is seen. IMPRESSION: 1. Status post right hemithyroidectomy. 2. Large dominant mass in the left lobe of the thyroid, overall similar in appearance when compared with examination from 01/18/2019. Dictated by: Dictated on workstation # [id number]
== END ==
LOC: RAD 12:34
PROVIDERS: ATTEND Internal Medicine Hematology & Oncology
DX: E04.1 Nontoxic single thyroid nodule (principal); C50.919 Malignant neoplasm of unspecified site of unspecified female breast; Z98.890 Other specified postprocedural states; Z90.89 Acquired absence of other organs
CPT/HCPCS: 76536

== ENCOUNTER → 2020-01-09 | Outpatient (CLI) | payer MEDICARE ==
[~2020-01-09] MED LIST changes: +SIMV20TA26 PO; -SIMV20TA3 PO
--- NOTE | 2020-01-09 10:48 | Diagnostic Imaging Report ---
INDICATION: Routine screening. Comparison is made with prior mammogram from 01/07/2019 and 01/07/2018. 2-D and 3-D bilateral screening mammography was performed with CAD. Scattered fibroglandular densities are identified bilaterally. Postbiopsy changes in the upper left breast with dystrophic calcifications is again noted. There is a benign circumscribed nodule in the retroareolar left breast, stable. No new mass or malignant appearing microcalcifications are seen. Benign calcifications in the right breast are noted. Axillae are unremarkable. IMPRESSION: BI-RADS Category 2 No mammographic features suspicious for malignancy are identified. Dictated by: Dictated on workstation # [id number]
== END ==
LOC: RAD 09:55
PROVIDERS: ATTEND Internal Medicine Hematology & Oncology
DX: Z12.31 Encounter for screening mammogram for malignant neoplasm of breast (principal); C50.919 Malignant neoplasm of unspecified site of unspecified female breast; E04.1 Nontoxic single thyroid nodule
CPT/HCPCS: 77067

== ENCOUNTER → 2020-08-30 | Outpatient (CLI) | payer MEDICARE ==
[~2020-08-30] MED LIST changes: +ACHD5005 PO; +AMLO-250 PO; -AMLO5TAB9 PO; -HYDR-3812 PO
[2020-08-30 14:10] LABS: BASOPHILS % (AUTO) 0 % (0-10); EOSINOPHILS # (AUTO) 0.1 10^3/uL (0.0-0.3); EOSINOPHILS % (AUTO) 1 % (0-10); HEMATOCRIT 41 % (35-52); HEMOGLOBIN 13.1 g/dL (11.5-16.0); LYMPHOCYTES # (AUTO) 2.4 10^3/uL (1.0-4.0); LYMPHOCYTES % (AUTO) 29 % (12-44); MEAN CORPUSCULAR HEMOGLOBIN 29 pg (25-34); MEAN CORPUSCULAR HGB CONC 32 g/dL (32-36); MEAN CORPUSCULAR VOLUME 92 fL (80-99); MEAN PLATELET VOLUME 9.5 fL (9.0-12.2); MONOCYTES # (AUTO) 0.6 10^3/uL (0.0-1.0); MONOCYTES % (AUTO) 7 % (0-12); NEUTROPHILS # (AUTO) 5.2 10^3/uL (1.8-7.8); NEUTROPHILS % (AUTO) 63 % (42-75); PLATELET COUNT 206 10^3/uL (130-400); WHITE BLOOD COUNT 8.3 10^3/uL (4.3-11.0)
[2020-08-30 14:30] LABS: ALANINE AMINOTRANSFERASE 16 U/L (0-55); ALBUMIN 4.5 GM/DL (3.2-4.5); ALKALINE PHOSPHATASE 66 U/L (40-136); BILIRUBIN,TOTAL 0.3 MG/DL (0.1-1.0); BUN/CREATININE RATIO 16; CALCIUM 9.8 MG/DL (8.5-10.1); CARBON DIOXIDE 25 MMOL/L (21-32); CHLORIDE 102 MMOL/L (98-107); CREATININE SERUM 0.88 MG/DL (0.60-1.30); GFR ESTIMATED > 60; GLUCOSE 110 MG/DL (70-105); SODIUM 139 MMOL/L (135-145); TOTAL PROTEIN 7.4 GM/DL (6.4-8.2)
== END ==
LOC: ONC 10:20
PROVIDERS: ATTEND Internal Medicine Hematology & Oncology
DX: Z12.31 Encounter for screening mammogram for malignant neoplasm of breast (principal); C50.912 Malignant neoplasm of unspecified site of left female breast; I10 Essential (primary) hypertension; E03.9 Hypothyroidism, unspecified; E78.00 Pure hypercholesterolemia, unspecified; H81.09 Meniere's disease, unspecified ear; Z90.12 Acquired absence of left breast and nipple; Z92.3 Personal history of irradiation; Z87.310 Personal history of (healed) osteoporosis fracture; Z86.69 Personal history of other diseases of the nervous system and sense organs
CPT/HCPCS: 80053; 85025; G0463; 99213

== ENCOUNTER → 2020-11-21 | Outpatient (CLI) | payer MEDICARE ==
--- NOTE | 2020-11-21 11:49 | Diagnostic Imaging Report ---
PROCEDURE: US Thyroid. TECHNIQUE: Multiple real-time grayscale images were obtained of the thyroid in various projections. INDICATION: Follow-up left thyroid nodule. COMPARISON: 09/06/2019. FINDINGS: There is a history of a right thyroidectomy. No thyroid tissue is seen in the right thyroid bed. The left thyroid lobe is mildly large measuring 6.4 x 3.0 x 3.4 cm. Vascularity appears normal. Redemonstrated is a large heterogeneous nodule involving the entire left lobe, which is generally isoechoic but appears somewhat spongiform in some areas. This measures 5.8 x 3.0 x 3.0 cm in size. This was previously biopsied and is stable since the prior exam. In the left side of the isthmus, there is a heterogeneous, isoechoic, predominantly solid nodule measuring 1.4 x 0.9 x 1.4 cm in size. This appears to have small internal echogenic foci. IMPRESSION: 1. Large heterogeneous nodule in the left lobe appears stable. Recommend follow-up ultrasound in one year. 2. Isoechoic nodule of the left isthmus qualifies for sonographic follow-up in one year as well. Dictated by: Dictated on workstation # [id number]
== END ==
LOC: RAD 10:00
PROVIDERS: ATTEND Family Medicine
DX: E04.1 Nontoxic single thyroid nodule (principal)
CPT/HCPCS: 76536

== ENCOUNTER → 2021-01-11 | Outpatient (CLI) | payer MEDICARE ==
--- NOTE | 2021-01-11 14:52 | Diagnostic Imaging Report ---
INDICATION: Routine screening. Comparison is made with prior mammogram 01/09/2020 and 01/07/2019. 2-D and 3-D bilateral screening mammography was performed with CAD. Scattered fibroglandular densities are identified bilaterally. Postoperative changes with dystrophic calcifications again noted in the left breast. The benign-appearing nodule in the retroareolar left breast appears stable. No spiculated mass or malignant-appearing microcalcifications are seen. There are benign calcifications in both breasts. Axillae are unremarkable. IMPRESSION: BI-RADS Category 2 No mammographic features suspicious for malignancy are identified. ACR BI-RADS Category 2: Benign findings. Result letter will be mailed to the patient. Note: At least 10% of breast cancer is not imaged by mammography. Dictated by: Dictated on workstation # [id number]
== END ==
LOC: RAD 10:00
PROVIDERS: ATTEND Internal Medicine Hematology & Oncology
DX: Z12.31 Encounter for screening mammogram for malignant neoplasm of breast (principal)
CPT/HCPCS: 77063; 77067

== ENCOUNTER → 2021-01-15 | Outpatient (CLI) | payer MEDICARE ==
[~2021-01-15] MED LIST changes: -FOLI0.8T PO; +FOLI0.8T4 PO
[2021-01-15 13:04] LABS: BASOPHILS % (AUTO) 0 % (0-10); EOSINOPHILS # (AUTO) 0.1 10^3/uL (0.0-0.3); EOSINOPHILS % (AUTO) 1 % (0-10); HEMATOCRIT 41 % (35-52); HEMOGLOBIN 13.1 g/dL (11.5-16.0); LYMPHOCYTES % (AUTO) 24 % (12-44); MEAN CORPUSCULAR HEMOGLOBIN 29 pg (25-34); MEAN CORPUSCULAR HGB CONC 32 g/dL (32-36); MEAN CORPUSCULAR VOLUME 91 fL (80-99); MEAN PLATELET VOLUME 9.7 fL (9.0-12.2); MONOCYTES # (AUTO) 0.6 10^3/uL (0.0-1.0); MONOCYTES % (AUTO) 7 % (0-12); NEUTROPHILS # (AUTO) 5.6 10^3/uL (1.8-7.8); NEUTROPHILS % (AUTO) 68 % (42-75); PLATELET COUNT 188 10^3/uL (130-400); WHITE BLOOD COUNT 8.3 10^3/uL (4.3-11.0)
[2021-01-15 13:25] LABS: ALBUMIN 4.5 GM/DL (3.2-4.5); BILIRUBIN,TOTAL 0.3 MG/DL (0.1-1.0); CALCIUM 9.7 MG/DL (8.5-10.1); CREATININE SERUM 1.03 MG/DL (0.60-1.30); POTASSIUM 4.2 MMOL/L (3.6-5.0); TOTAL PROTEIN 7.1 GM/DL (6.4-8.2)
== END ==
LOC: ONC 12:51
PROVIDERS: ATTEND Internal Medicine Hematology & Oncology
DX: C50.912 Malignant neoplasm of unspecified site of left female breast (principal); E89.0 Postprocedural hypothyroidism; I10 Essential (primary) hypertension; E78.00 Pure hypercholesterolemia, unspecified; Z86.69 Personal history of other diseases of the nervous system and sense organs; Z87.39 Personal history of other diseases of the musculoskeletal system and connective tissue; Z92.3 Personal history of irradiation; Z80.3 Family history of malignant neoplasm of breast
CPT/HCPCS: 80053; 85025; G0463; 99213

== ENCOUNTER 2021-08-21 19:13 | Inpatient (IN) | payer MEDICARE ==
[~2021-08-21] VITALS: Ht 175.3 cm; Wt 91.7 kg
[2021-08-21] MEDS ORDERED: morphine INJ 10 MG/ML 1ML (SYR OR VIAL) IVP STA ×3 (19:21→21:07)
--- NOTE | 2021-08-21 19:26 | ED General ---
General Stated Complaint: FALL Source of Information: Patient Exam Limitations: No Limitations History of Present Illness Date Seen by Provider: Aug 21, 2021 Time Seen by Provider: 19:23 Initial Comments To ER with reports of a fall off of a curb landing on the left side while carrying items from the [employer]. She has a goose egg to the left forehead no loss of consciousness. She has left wrist pain and left hip pain. EMS arrived and gave 100 mcg of fentanyl with minimal pain relief. Past medical history is hypothyroidism hypertension hyperlipidemia and left breast cancer treated with lumpectomy and radiation in 2012. Timing/Duration: 1/2 Hour Severity: Moderate Associated Systoms: Denies Symptoms Allergies and Home Medications Allergies Coded Allergies: No Known Drug Allergies (Unverified , 01/17/19) Patient Home Medication List Home Medication List Reviewed: Yes Alendronate Sodium (Alendronate Sodium) 70 Mg Tablet, 70 MG PO WEEK, (Reported) Entered as Reported by: SHRUTHI IBRAHIM on 08/22/211499 Last Action: Held Amlodipine Besylate (Amlodipine Besylate) 5 Mg Tablet, 5 MG PO DAILY, (Reported) Entered as Reported by: ALEXA JEFF on 01/17/191624 Last Action: Reviewed Atenolol (Atenolol) 50 Mg Tablet, 50 MG PO DAILY, (Reported) Entered as Reported by: ALEXA JEFF on 01/17/191624 Last Action: Reviewed Calcium Carb/D3/Magnesium/Zinc (Josue Mag Zinc + D3 Tablet) 1 Each Tablet, 1 TAB PO DAILY, (Reported) Entered as Reported by: ALEXA JEFF on 01/17/191624 Last Action: Converted Cholecalciferol (Vitamin D3) (Vitamin D3) 125 Mcg Capsule, 125 MCG PO DAILY, (Reported) Entered as Reported by: SHRUTHI IBRAHIM on 08/22/211499 Last Action: Converted Furosemide (Furosemide) 20 Mg Tablet, 20 MG PO DAILY, (Reported) Entered as Reported by: ALEXA JEFF on 01/17/191624 Last Action: Reviewed Latanoprost (Xalatan) 2.5 Ml Drops, 1 DROP OU HS, (Reported) Entered as Reported by: SHRUTHI IBRAHIM on 08/22/211499 Last Action: Continued Levothyroxine Sodium (Levothyroxine Sodium) 25 Mcg Tablet, 25 MCG PO DAILY, (Reported) Entered as Reported by: ALEXA JEFF on 01/17/191624 Last Action: Continued Pantoprazole Sodium (Pantoprazole Sodium) 40 Mg Tablet.dr, 40 MG PO DAILY, (Reported) Entered as Reported by: SHRUTHI IBRAHIM on 08/22/211499 Last Action: Continued Potassium Chloride (Potassium Chloride) 10 Meq Tab.er.prt, 10 MEQ PO DAILY, (Reported) Entered as Reported by: SHRUTHI IBRAHIM on 08/22/211499 Last Action: Converted Simvastatin (Simvastatin) 20 Mg Tablet, 20 MG PO HS, (Reported) Entered as Reported by: ALEXA JEFF on 01/17/191624 Last Action: Continued Timolol Maleate (Timolol Maleate 0.5%) 5 Ml Drops, 1 DROP OU BID, (Reported) Entered as Reported by: ALEXA JEFF on 01/17/191624 Last Action: Continued Discontinued Medications Anastrozole (Anastrozole) 1 Mg Tablet, 1 MG PO DAILY, (Reported) Discontinued Reason: No Longer Taking Entered as Reported by: HARRY MUIR on 02/15/19 1342 Last Action: Discontinued Cholecalciferol (Vitamin D3) (Vitamin D3) 400 Unit Capsule, 400 UNIT PO DAILY, (Reported) Discontinued Reason: Prescription changed Entered as Reported by: ALEXA JEFF on 01/17/191624 Folic Acid (Folic Acid) 0.8 Mg Tablet, 0.8 MG PO DAILY, (Reported) Discontinued Reason: No Longer Taking Entered as Reported by: ALEXA JEFF on 01/17/191624 Last Action: Discontinued Potassium Chloride (Potassium Chloride) 10 Meq Tablet.er, 10 MEQ PO DAILY, (Reported) Discontinued Reason: No Longer Taking Entered as Reported by: ALEXA JEFF on 01/17/191624 Last Action: Discontinued Review of Systems Review of Systems Constitutional: see HPI EENTM: see HPI Respiratory: no symptoms reported Cardiovascular: no symptoms reported Genitourinary: no symptoms reported Musculoskeletal: see HPI Skin: no symptoms reported Psychiatric/Neurological: No Symptoms Reported Hematologic/Lymphatic: No Symptoms Reported Immunological/Allergic: no symptoms reported Past Fkozqby-Unkrjy-Gznwel Hx Immunizations Up To Date PED Vaccines UTD: No Seasonal Allergies Seasonal Allergies: No Past Medical History Surgeries: Yes Breast, Eye Surgery, Orthopedic, Thyroidectomy Respiratory: No Currently Using CPAP: No Currently Using BIPAP: No Cardiac: Yes Hypertension Neurological: No Genitourinary: No Gastrointestinal: No Musculoskeletal: Yes Osteoporosis Endocrine: Yes Hypothyroidsim HEENT: No Cancer: Yes (lumpectomy left side of the breast ) Breast Did You Recieve Any Treatments: Yes What Type of Treatment Did You: Radiation, Surgical Intervention Psychosocial: No Integumentary: No Blood Disorders: No Physical Exam Vital Signs Vital Signs - First Documented 08/21/21 19:16 Temp 35.9 Pulse 88 Resp 16 B/P (MAP) 154/85 (108) O2 Delivery Room Air Capillary Refill : Height, Weight, BMI Height: 5'9.00" Weight: 175lbs. 0.0oz. 79.218556hv; 25.8 BMI Method:Stated General Appearance: No Apparent Distress, WD/WN Eyes: Bilateral Eye Normal Inspection, Bilateral Eye PERRL, Bilateral Eye EOMI HEENT: PERRL/EOMI, TMs Normal, Other (hematoma to left foreahead. ) Neck: Full Range of Motion, Normal Inspection Respiratory: No Accessory Muscle Use, No Respiratory Distress Cardiovascular: Regular Rate, Rhythm, Normal Peripheral Pulses Gastrointestinal: Normal Bowel Sounds, Non Tender, Soft Extremity: Normal Capillary Refill, Normal Inspection, Other (Keeps left leg in a flexed position at the hip. Any range of motion causes pain.) Neurologic/Psychiatric: Alert, Oriented x3 Skin: Normal Color, Warm/Dry Progress/Results/Core Measures Suspected Sepsis SIRS Temperature: Pulse: Respiratory Rate: Laboratory Tests 08/21/21 19:28: White Blood Count 11.3H Blood Pressure / Mean: Laboratory Tests 08/21/21 19:28: Creatinine 1.14, INR Comment 0.9, Platelet Count 217, Total Bilirubin 0.3 Results/Orders Lab Results Laboratory Tests Test 08/21/21 19:28 Range/Units White Blood Count 11.3 H 4.3-11.0 10^3/uL Red Blood Count 4.40 3.80-5.11 10^6/uL Hemoglobin 12.9 11.5-16.0 g/dL Hematocrit 40 35-52 % Mean Corpuscular Volume 91 80-99 fL Mean Corpuscular Hemoglobin 29 25-34 pg Mean Corpuscular Hemoglobin Concent 32 32-36 g/dL Red Cell Distribution Width 12.9 10.0-14.5 % Platelet Count 217 130-400 10^3/uL Mean Platelet Volume 9.4 9.0-12.2 fL Immature Granulocyte % (Auto) 0 % Neutrophils (%) (Auto) 63 42-75 % Lymphocytes (%) (Auto) 29 12-44 % Monocytes (%) (Auto) 8 0-12 % Eosinophils (%) (Auto) 0 0-10 % Basophils (%) (Auto) 0 0-10 % Neutrophils # (Auto) 7.0 1.8-7.8 10^3/uL Lymphocytes # (Auto) 3.3 1.0-4.0 10^3/uL Monocytes # (Auto) 0.9 0.0-1.0 10^3/uL Eosinophils # (Auto) 0.1 0.0-0.3 10^3/uL Basophils # (Auto) 0.0 0.0-0.1 10^3/uL Immature Granulocyte # (Auto) 0.1 0.0-0.1 10^3/uL Prothrombin Time 12.9 12.2-14.7 SEC INR Comment 0.9 0.8-1.4 Sodium Level 141 135-145 MMOL/L Potassium Level 4.2 3.6-5.0 MMOL/L Chloride Level 103 98-107 MMOL/L Carbon Dioxide Level 25 21-32 MMOL/L Anion Gap 13 5-14 MMOL/L Blood Urea Nitrogen 19 H 7-18 MG/DL Creatinine 1.14 0.60-1.30 MG/DL Estimat Glomerular Filtration Rate 47 BUN/Creatinine Ratio 17 Glucose Level 114 H 70-105 MG/DL Calcium Level 10.3 H 8.5-10.1 MG/DL Corrected Calcium 10.0 8.5-10.1 MG/DL Total Bilirubin 0.3 0.1-1.0 MG/DL Aspartate Amino Transf (AST/SGOT) 24 5-34 U/L Alanine Aminotransferase (ALT/SGPT) 19 0-55 U/L Alkaline Phosphatase 78 40-136 U/L Total Protein 7.5 6.4-8.2 GM/DL Albumin 4.4 3.2-4.5 GM/DL My Orders Orders - KYAW CARRERA NURSE COORDINATOR Cbc With Automated Diff (08/21/21 19:21) Comprehensive Metabolic Panel (08/21/21 19:21) Ua Culture If Indicated (08/21/21 19:21) Protime With Inr (08/21/21:21) Stroud Cath (08/21/21 19:21) Morphine Injection (Morphine Injection (08/21/21 19:21) Ct Head/Cervical Spine Wo (08/21/21 19:21) Chest 1 View, Ap/Pa Only (08/21/21 19:21) Wrist, Left, 3 Views Or More (08/21/21 19:21) Pelvis With Left Hip 2-3 Views (08/21/21 19:21) Morphine Injection (Morphine Injection (08/21/21 20:17) Vital Signs/I&O 08/21/21 19:16 Temp 35.9 Pulse 88 Resp 16 B/P (MAP) 154/85 (108) O2 Delivery Room Air Capillary Refill : Departure Communication (Admissions) 2042-we will put the left wrist in a sugar tong style splint, I spoke with Dr. Pacheco we will admit for n.p.o. after midnight plan for surgical repair left hip in the morning. She takes no anticoagulant or antiplatelet medications. NAME: CASEJACOBO MED REC#: [id number] PT STATUS: REG ER : 1950 PHYSICIAN: KYAW CARRERA APRN ADMIT DATE: 08/21/21/ER Draft Date of Exam:08/21/21 WRIST, LEFT, 3 VIEWS OR MORE INDICATION: Fall with left wrist pain. EXAMINATION: AP, oblique and lateral views of the left wrist were obtained at 8:18 p.m. FINDINGS: There is an acute fracture of the distal radius with intra-articular extension and mild dorsal angulation of the distal fragments. There is an ulnar styloid avulsion fracture. There are underlying extensive degenerative findings throughout the carpal bones with cystic degenerative changes in the lunate and scaphoid and advanced joint space narrowing of the 1st carpal metacarpal joint. IMPRESSION: Acute fractures of distal radius with intra-articular extension, as well as ulnar styloid. Underlying extensive chronic changes. Dictated on workstation # [id number] Dict: 08/21/212015 Trans: 08/21/212025 [facility] [id number] Interpreted by: DEE STEVENS MD Electronically signed by: NAME: JACOBO [facility] REC#: [id number] PT STATUS: REG ER : 1950 PHYSICIAN: KYAW CARRERA APRN ADMIT DATE: 08/21/21/ER Draft Date of Exam:08/21/21 PELVIS WITH LEFT HIP 2-3 VIEWS INDICATION: Pain, fall. FINDINGS: AP pelvis and two-view left hip show acute intertrochanteric left hip fracture without significant varus angulation. There is mild medial distraction of the fracture extending to the base of the lesser trochanter. An obliquely oriented lucency projects over the upper outer quadrant of the left humeral head as seen in the frontal projection. This may be superimposition of a fracture of the posterior acetabulum. Superior and inferior rami, symphysis and SI joints are nonacute. The right hemipelvis reveals severe right hip arthritis but no acute finding. IMPRESSION: Comminuted intertrochanteric left femoral fractures without dislocation. An additional nondisplaced fracture line projecting over the upper outer quadrant of the left femoral head may be femoral head injury or projection of acetabular injury. Dictated on workstation # [id number] Dict: 08/21/212016 Trans: 08/21/212031 [facility] [id number] Interpreted by: GABRIEL LOGAN Electronically signed by: Impression Primary Impression: Hip fracture Additional Impression: Wrist fracture Disposition: ADMITTED INPATIENT Condition: Stable Admissions Decision to Admit Reason: Admit from ER (General) Decision to Admit/Date: Aug 21, 2021 Time/Decision to Admit Time: 20:43 Departure-Patient Inst. Referrals: PAMELA COBB DO (PCP/Family) Primary Care Physician KYAW CARRERA APRN Aug 21, 2021 19:25
[2021-08-21 19:39] LABS: BASOPHILS % (AUTO) 0 % (0-10); EOSINOPHILS # (AUTO) 0.1 10^3/uL (0.0-0.3); EOSINOPHILS % (AUTO) 0 % (0-10); HEMATOCRIT 40 % (35-52); HEMOGLOBIN 12.9 g/dL (11.5-16.0); LYMPHOCYTES # (AUTO) 3.3 10^3/uL (1.0-4.0); LYMPHOCYTES % (AUTO) 29 % (12-44); MEAN CORPUSCULAR HEMOGLOBIN 29 pg (25-34); MEAN CORPUSCULAR HGB CONC 32 g/dL (32-36); MEAN CORPUSCULAR VOLUME 91 fL (80-99); MEAN PLATELET VOLUME 9.4 fL (9.0-12.2); MONOCYTES # (AUTO) 0.9 10^3/uL (0.0-1.0); MONOCYTES % (AUTO) 8 % (0-12); NEUTROPHILS % (AUTO) 63 % (42-75); PLATELET COUNT 217 10^3/uL (130-400); WHITE BLOOD COUNT 11.3 10^3/uL (4.3-11.0)
[2021-08-21 20:00] LABS: INR 0.9 (0.8-1.4); PROTHROMBIN TIME PATIENT 12.9 SEC (12.2-14.7)
[2021-08-21 20:09] LABS: ALBUMIN 4.4 GM/DL (3.2-4.5); BILIRUBIN,TOTAL 0.3 MG/DL (0.1-1.0); CALCIUM 10.3 MG/DL (8.5-10.1); CREATININE SERUM 1.14 MG/DL (0.60-1.30); POTASSIUM 4.2 MMOL/L (3.6-5.0); TOTAL PROTEIN 7.5 GM/DL (6.4-8.2)
--- NOTE | 2021-08-21 20:21 | Diagnostic Imaging Report ---
PROCEDURE: CT head and CT cervical spine without contrast. TECHNIQUE: Multiple contiguous axial images were obtained through the brain and cervical spine without the use of intravenous contrast. Sagittal and coronal reformations through the cervical spine were then performed. Auto Exposure Controls were utilized during the CT exam to meet ALARA standards for radiation dose reduction. INDICATION: Fall. COMPARISON: I have no prior. CT HEAD: A right-sided cochlear implant is present. This results in some regional beam hardening artifact but no evidence for intracerebral hemorrhage is found. There is no hydrocephalus. No focal or generalized cerebral edema. The basilar cisterns are patent. There is no sulcal effacement. No mass or mass effect. No acute appearing calvarial abnormality. No sinus air-fluid level. No pneumocephalus. Orbital contents unremarkable. There is no mastoid effusion. CT CERVICAL SPINE: Body heights maintained. The alignment anatomic. The craniocervical relationship normal. There is predominantly anteriorly oriented osteophyte disc material throughout the cervical spine. There is multilevel bulky hypertrophic facet arthrosis. No fracture or paraspinal hemorrhage. There is a left lobe thyroid mass measuring at least 4 cm. This is described similarly on ultrasound dedicated to the thyroid performed January 2019. The right thyroid lobe is absent. There are carotid atherosclerotic vascular calcifications. No cervical vertebral body or posterior element fracture. No facet joint dislocation. No splaying of the posterior elements. IMPRESSION: 1. CT head: Indwelling cochlear implant. No hemorrhage, edema, fracture or acute finding. 2. CT cervical spine: No cervical fracture or traumatic malalignment. Bulky degenerative facet arthrosis and moody-cervical spondylosis but no fracture demonstrated. 3. Known left lobe thyroid mass appears as described on ultrasound of 01/18/2019. Dictated by: Dictated on workstation # [id number]
--- NOTE | 2021-08-21 20:28 | Diagnostic Imaging Report ---
INDICATION: Fall with left wrist pain. EXAMINATION: AP, oblique and lateral views of the left wrist were obtained at 8:18 p.m. FINDINGS: There is an acute fracture of the distal radius with intra-articular extension and mild dorsal angulation of the distal fragments. There is an ulnar styloid avulsion fracture. There are underlying extensive degenerative findings throughout the carpal bones with cystic degenerative changes in the lunate and scaphoid and advanced joint space narrowing of the 1st carpal metacarpal joint. IMPRESSION: Acute fractures of distal radius with intra-articular extension, as well as ulnar styloid. Underlying extensive chronic changes. Dictated by: Dictated on workstation # [id number]
--- NOTE | 2021-08-21 20:28 | Diagnostic Imaging Report ---
INDICATION: Fall, chest pain. EXAMINATION: Frontal chest was obtained at 8:14 p.m. COMPARISON: 02/15/2019. FINDINGS: Heart is mildly enlarged. There is some left basilar atelectasis. There is no pneumothorax or pleural fluid. There are old left-sided rib fractures which were acute on the prior study of 02/15/2019. IMPRESSION: Mild left basilar atelectasis. No pneumothorax or pleural fluid. Old left-sided rib fractures. Dictated by: Dictated on workstation # [id number]
--- NOTE | 2021-08-21 20:33 | Diagnostic Imaging Report ---
INDICATION: Pain, fall. FINDINGS: AP pelvis and two-view left hip show acute intertrochanteric left hip fracture without significant varus angulation. There is mild medial distraction of the fracture extending to the base of the lesser trochanter. An obliquely oriented lucency projects over the upper outer quadrant of the left humeral head as seen in the frontal projection. This may be superimposition of a fracture of the posterior acetabulum. Superior and inferior rami, symphysis and SI joints are nonacute. The right hemipelvis reveals severe right hip arthritis but no acute finding. IMPRESSION: Comminuted intertrochanteric left femoral fractures without dislocation. An additional nondisplaced fracture line projecting over the upper outer quadrant of the left femoral head may be femoral head injury or projection of acetabular injury. Dictated by: Dictated on workstation # [id number]
[2021-08-21 21:00] LABS: BILIRUBIN,URINE NEGATIVE (NEGATIVE); CLARITY,URINE CLEAR; COLOR,URINE YELLOW; GLUCOSE, URINE (UA) NEGATIVE (NEGATIVE); KETONES,URINE TRACE (NEGATIVE); LEUKOCYTE ESTERASE ,URINE 1+ (NEGATIVE); NITRITE,URINE POSITIVE (NEGATIVE); PROTEIN,URINE NEGATIVE (NEGATIVE)
[2021-08-21 21:09] LABS: BACTERIA,URINE LARGE /HPF; SQUAMOUS EPITHELIAL CELL,UR 0-2 /HPF
[2021-08-21] MEDS ORDERED: cefTRIAXone 1,000 MG in WATER (STERILE) FOR INJECTION 10 ML IV ONE (21:30)
[2021-08-21 21:40] VITALS: BP 150/80
[2021-08-21] MEDS ORDERED: ONDANSETRON 4 MG/2 ML (SDV) Z0FRAN IVP PRN (22:15)
[2021-08-21] MEDS: LACTATED RINGERS 1,000 ML IV SCH (22:52)
[2021-08-21 23:15] VITALS: BP 128/74
[2021-08-22] VITALS (12 sets, daily range): BP systolic 98–147; BP diastolic 59–82
[2021-08-22] MEDS: morphine INJ 4 MG/ML 1 ML (VIAL/SYRINGE) IVP PRN (04:08)
[2021-08-22] MEDS: LACTATED RINGERS 1,000 ML IV SCH ×3 (06:43→18:08)
[2021-08-22] MEDS ORDERED: FLU QUAD HIGH DOSE 240 MCG/0.7 ML 2021-22 (FLUZONE) IM ONE (07:30)
--- NOTE | 2021-08-22 08:52 | Consultation - Ortho ---
Consult - Ortho Subjective Date of Exam 08/22/21 Chief Complaint Left Hip Pain and Left Wrist Pain HPI/Events since last exam Sustained fall on curb last night. Seen in ER and diagnosed with left hip fracture and left wrist fracture. Admitted to hospitalist service. I was asked to care for the fractures. Medical, Surgical History see admit Social History see admit Family History see admit Review of Systems see admit Allergies: Coded Allergies: No Known Drug Allergies (Unverified , 01/17/19) Home Meds Reported Medications Anastrozole (Anastrozole) 1 Mg Tablet, 1 MG PO DAILY, TAB 02/15/19 Calcium Carb/D3/Magnesium/Zinc (Josue Mag Zinc + D3 Tablet) 1 Each Tablet, 1 TAB PO DAILY, TAB 01/17/19 Cholecalciferol (Vitamin D3) (Vitamin D3) 400 Unit Capsule, 400 UNIT PO DAILY, CAP 01/17/19 Folic Acid (Folic Acid) 0.8 Mg Tablet, 0.8 MG PO DAILY, TAB 01/17/19 Latanoprost (Latanoprost) 2.5 Ml Drops, 1 DROP OU HS, EA 01/17/19 Timolol Maleate (Timolol Maleate 0.5%) 5 Ml Drops, 1 DROP OU BID, EA 01/17/19 Potassium Chloride (Potassium Chloride) 10 Meq Tablet.er, 10 MEQ PO DAILY, TAB 01/17/19 Furosemide (Furosemide) 20 Mg Tablet, 20 MG PO DAILY, TAB 01/17/19 Amlodipine Besylate (Amlodipine Besylate) 5 Mg Tablet, 5 MG PO DAILY, TAB 01/17/19 Atenolol (Atenolol) 50 Mg Tablet, 50 MG PO DAILY, TAB 01/17/19 Levothyroxine Sodium (Levothyroxine Sodium) 25 Mcg Tablet, 25 MCG PO DAILY, TAB 01/17/19 Simvastatin (Simvastatin) 20 Mg Tablet, 20 MG PO HS, TAB 01/17/19 Objective Exam Left Leg: Skin intact over hip, some spots of ecchymosis, able to dorsiflex ankle, sensation grossly intact to light touch, distal pulses palpable Left Arm: Splint in place, no significant swelling in fingers, moving all finge rs, cap refill brisk, sensation grossly intact to light touch Vital Signs Vital Signs Date Time Temp Pulse Resp B/P (MAP) Pulse Ox O2 Delivery O2 Flow Rate FiO2 08/22/21 08:00 36.4 99 20 135/82 (99) 96 Room Air 08/22/21 04:00 36.2 87 18 146/80 (102) 96 Room Air 08/21/21 23:15 36.0 76 18 128/74 (92) 97 Room Air 08/21/21 21:40 36.1 79 20 150/80 (103) 97 Room Air 08/21/21 21:35 97 Room Air 08/21/21 21:28 35.9 89 14 144/79 97 Room Air 08/21/21 19:16 35.9 88 16 154/85 (108) Room Air I & O 08/22/21 07:00 Intake Total 210 ml Output Total 650 ml Balance -440 ml Lab Results Laboratory Tests 08/21/21 19:28: White Blood Count 11.3H, Red Blood Count 4.40, Hemoglobin 12.9, Hematocrit 40, Mean Corpuscular Volume 91, Mean Corpuscular Hemoglobin 29, Mean Corpuscular Hemoglobin Concent 32, Red Cell Distribution Width 12.9, Platelet Count 217, Mean Platelet Volume 9.4, Immature Granulocyte % (Auto) 0, Neutrophils (%) (Auto) 63, Lymphocytes (%) (Auto) 29, Monocytes (%) (Auto) 8, Eosinophils (%) (Auto) 0, Basophils (%) (Auto) 0, Neutrophils # (Auto) 7.0, Lymphocytes # (Auto) 3.3, Monocytes # (Auto) 0.9, Eosinophils # (Auto) 0.1, Basophils # (Auto) 0.0, Immature Granulocyte # (Auto) 0.1, Prothrombin Time 12.9, INR Comment 0.9, Sodium Level 141, Potassium Level 4.2, Chloride Level 103, Carbon Dioxide Level 25, Anion Gap 13, Blood Urea Nitrogen 19H, Creatinine 1.14, Estimat Glomerular Filtration Rate 47, BUN/Creatinine Ratio 17, Glucose Level 114H, Calcium Level 10.3H, Corrected Calcium 10.0, Total Bilirubin 0.3, Aspartate Amino Transf (AST/SGOT) 24, Alanine Aminotransferase (ALT/SGPT) 19, Alkaline Phosphatase 78, Total Protein 7.5, Albumin 4.4 08/21/21 20:52: Urine Color YELLOW, Urine Clarity CLEAR, Urine pH 6.0, Urine Specific Morrill 1.020, Urine Protein NEGATIVE, Urine Glucose (UA) NEGATIVE, Urine Ketones TRACEH , Urine Nitrite POSITIVEH, Urine Bilirubin NEGATIVE, Urine Urobilinogen 0.2, U rine Leukocyte Esterase 1+H, Urine RBC (Auto) 1+H, Urine RBC 2-5H, Urine WBC 10- 25H, Urine Squamous Epithelial Cells 0-2, Urine Crystals NONE, Urine Bacteria LARGEH, Urine Casts PRESENT, Urine Hyaline Casts 5-10H, Urine Mucus NEGATIVE, Urine Culture Indicated YES 08/22/21 06:40: SARS-CoV-2 RNA (RT-PCR) Not Detected Microbiology 08/21/21 Urine Culture - Preliminary, Resulted Gram Negative [facility] X-ray of the pelvis was reviewed from PACS and demonstrated a displaced left intertrochanteric femur fracture 3 views of the left wrist were reviewed from PACS and demonstrated a minimally dorsally angulated distal radius fracture with intra-articular extension Assessment and Plan Assessment Left Intertrochanteric Femur Fracture Left Colles Fracture Problem List Left Intertrochanteric Femur Fracture Left Colles Fracture Plan Discussed findings with patient. I have recommended proceeding with intramedullary nailing of the left intertrochanteric femur fracture. Nature of the procedure and the postoperative period were discussed. Risks and benefits were discussed. Will plan to proceed today. For her wrist fracture, I have initially recommended conservative management. Will maintain splint for now and consider cast in future. If it were to angulate more or shift then would consider proceeding with operative intervention. Final Diagonsis Left Intertrochanteric Femur Fracture Left Colles Fracture Level of the visit: Level 3 (global) LOU SANFORD MD Aug 22, 2021 08:52
[2021-08-22] MEDS: DOCUSATE SODIUM 100 MG (COLACE) CAP PO SCH (09:05)
--- NOTE | 2021-08-22 09:17 | History & Physical-Hospitalist ---
History of Present Illness HPI/Chief Complaint Pt is a 70yoCF with a PMH of HTN, HLD, hypothyroidism, and remote history of breast cancer who presented to the ER due to pain after a fall. She states she was walking out of her [employer] carrying a lot of things and was offered help but declined. Shortly after that she tripped and fell. She denied any LOC or prodomal symptoms and that she simply tripped. EMS was summoned and imaging in the ER revealed both left hip fracture and left wrist fracture. She reports her pain today is much improved and controlled with current regimen. Source: patient Date Seen 08/22/21 Time Seen by a Provider: 09:17 Attending Physician Bong Cavazos MD PCP Luciano Olson DO Referring Physician Date of Admission Aug 21, 2021 at 20:33 Home Medications & Allergies Home Medications Reviewed patient Home Medication Reconciliation performed by pharmacy medication reconciliations cadd technician and/or nursing. Patients Allergies have been reviewed. Allergies Allergies Coded Allergies No Known Drug Allergies (Unverified01/17/19) Past Yhxqfof-Idddqr-Gqyjrp Hx Patient Social History Tobacco Use?: No Use of E-Cig and/or Vaping dev: No Substance use?: No Alcohol Use?: No Pt feels they are or have been: No Immunizations Up To Date Date of Influenza Vaccine: Jul 17, 2018 First/Initial COVID19 Vaccinat: JANUARY 2021 Second COVID19 Vaccination Michael: JANUARY 2021 Tetanus Booster (TDap): Less Than 5 Years Hepatitis A: No Hepatitis B: No PED Vaccines UTD: No Date of Pneumonia Vaccine: Jul 17, 2018 Seasonal Allergies Seasonal Allergies: No Current Status status: No status: No Advance Directives: No Communicates: Verbally Primary Language: Kyrgyz Preferred Spoken Language: Kyrgyz Is interpretation needed?: No Sensory deficits: Vision impairment, Hearing impairment Implanted or Applied Medical D: Orthopedic hardware Past Medical History Surgeries: Breast, Eye Surgery, Orthopedic, Thyroidectomy Currently Using CPAP: No Currently Using BIPAP: No Hypertension Osteoporosis Hypothyroidsim Breast Did You Recieve Any Treatments: Yes What Type of Treatment Did You: Radiation, Surgical Intervention Blood Disorders: No Review of Systems Constitutional: No chills, No fever EENTM: no symptoms reported Respiratory: no symptoms reported Cardiovascular: no symptoms reported Gastrointestinal: no symptoms reported Genitourinary: no symptoms reported Musculoskeletal: no symptoms reported Skin: no symptoms reported Psychiatric/Neurological: No Symptoms Reported Physical Exam Physical Exam Vital Signs Vital Signs - First Documented 08/21/21 08/21/21 19:16 21:28 Temp 35.9 Pulse 88 Resp 16 B/P (MAP) 154/85 (108) Pulse Ox 97 O2 Delivery Room Air Capillary Refill : Less Than 3 Seconds Height, Weight, BMI Height: 5'9.00" Weight: 175lbs. 0.0oz. 79.876329ad; 29.84 BMI Method:Stated General Appearance: No Apparent Distress, WD/WN HEENT: PERRL/EOMI, Moist Mucous Membranes Neck: Normal Inspection, Supple Respiratory: Lungs Clear, No Accessory Muscle Use, No Respiratory Distress Cardiovascular: Regular Rate, Rhythm, No Murmur Gastrointestinal: Normal Bowel Sounds, Non Tender, Soft Neurologic/Psychiatric: Alert, Oriented x3, Normal Mood/Affect Results Results/Procedures Labs Laboratory Tests 08/21/21 19:28 Patient resulted labs reviewed. Imaging: Reviewed Imaging Report Imaging [facility], [place] NAME: JACOBO BLUE [facility] REC#: [id number] PT STATUS: REG ER : 1950 PHYSICIAN: KYAW CARRERA APRN ADMIT DATE: 08/21/21/ER Signed Date of Exam:08/21/21 PELVIS WITH LEFT HIP 2-3 VIEWS INDICATION: Pain, fall. FINDINGS: AP pelvis and two-view left hip show acute intertrochanteric left hip fracture without significant varus angulation. There is mild medial distraction of the fracture extending to the base of the lesser trochanter. An obliquely oriented lucency projects over the upper outer quadrant of the left humeral head as seen in the frontal projection. This may be superimposition of a fracture of the posterior acetabulum. Superior and inferior rami, symphysis and SI joints are nonacute. The right hemipelvis reveals severe right hip arthritis but no acute finding. IMPRESSION: Comminuted intertrochanteric left femoral fractures without dislocation. An additional nondisplaced fracture line projecting over the upper outer quadrant of the left femoral head may be femoral head injury or projection of acetabular injury. Dictated by: Dictated on workstation # [id number] Dict: 08/21/212016 Trans: 08/21/212038 [facility] [id number] Interpreted by: GABRIEL LOGAN Electronically signed by: GABRIEL LOGAN 08/21/212038 [facility] [place] [place] NAME: JACOBO [facility] REC#: [id number] PT STATUS: ADM IN : 1950 PHYSICIAN: KYAW CARRERA APRN ADMIT DATE: 08/21/21/[facility] Signed Date of Exam:08/21/21 WRIST, LEFT, 3 VIEWS OR MORE INDICATION: Fall with left wrist pain. EXAMINATION: AP, oblique and lateral views of the left wrist were obtained at 8:18 p.m. FINDINGS: There is an acute fracture of the distal radius with intra-articular extension and mild dorsal angulation of the distal fragments. There is an ulnar styloid avulsion fracture. There are underlying extensive degenerative findings throughout the carpal bones with cystic degenerative changes in the lunate and scaphoid and advanced joint space narrowing of the 1st carpal metacarpal joint. IMPRESSION: Acute fractures of distal radius with intra-articular extension, as well as ulnar styloid. Underlying extensive chronic changes. Dictated by: Dictated on workstation # [id number] Dict: 08/21/212015 Trans: 08/22/21805 [facility] [id number] Interpreted by: DEE STEVENS MD Electronically signed by: DEE STEVENS MD 08/22/21805 [facility] [place] [place] NAME: JACOBO [facility] REC#: [id number] PT STATUS: REG ER : 1950 PHYSICIAN: KYAW CARRERA APRN ADMIT DATE: 08/21/21/ER Signed Date of Exam:08/21/21 CT HEAD/CERVICAL SPINE WO PROCEDURE: CT head and CT cervical spine without contrast. TECHNIQUE: Multiple contiguous axial images were obtained through the brain and cervical spine without the use of intravenous contrast. Sagittal and coronal reformations through the cervical spine were then performed. Auto Exposure Controls were utilized during the CT exam to meet ALARA standards for radiation dose reduction. INDICATION: Fall. COMPARISON: I have no prior. CT HEAD: A right-sided cochlear implant is present. This results in some regional beam hardening artifact but no evidence for intracerebral hemorrhage is found. There is no hydrocephalus. No focal or generalized cerebral edema. The basilar cisterns are patent. There is no sulcal effacement. No mass or mass effect. No acute appearing calvarial abnormality. No sinus air-fluid level. No pneumocephalus. Orbital contents unremarkable. There is no mastoid effusion. CT CERVICAL SPINE: Body heights maintained. The alignment anatomic. The craniocervical relationship normal. There is predominantly anteriorly oriented osteophyte disc material throughout the cervical spine. There is multilevel bulky hypertrophic facet arthrosis. No fracture or paraspinal hemorrhage. There is a left lobe thyroid mass measuring at least 4 cm. This is described similarly on ultrasound dedicated to the thyroid performed January 2019. The right thyroid lobe is absent. There are carotid atherosclerotic vascular calcifications. No cervical vertebral body or posterior element fracture. No facet joint dislocation. No splaying of the posterior elements. IMPRESSION: 1. CT head: Indwelling cochlear implant. No hemorrhage, edema, fracture or acute finding. 2. CT cervical spine: No cervical fracture or traumatic malalignment. Bulky degenerative facet arthrosis and moody-cervical spondylosis but no fracture demonstrated. 3. Known left lobe thyroid mass appears as described on ultrasound of 01/18/2019. Dictated by: Dictated on workstation # [id number] Dict: 08/21/212000 Trans: 08/21/212038 [facility] [id number] Interpreted by: GABRIEL LOGAN Electronically signed by: GABRIEL LOGAN 08/21/212038 Assessment/Plan Admission Diagnosis Comminuted intertrochanteric left femoral fracture Admission Status: Inpatient Order (span 2 midnights) Reason for Inpatient Admission: see below Assessment and Plan Comminuted intertrochanteric left femoral fracture distal radial fracture osteoporosis Plan for OR today Pain controlled PT/OT post op Orthopedic surgery consulted, appreciate recs already on alendronate and calcium supplement at home HTN HLD Continue home meds when able to PO Hypothyroidism Continue home synthroid DVt ppx: Lovenox post op when ok with surgery Diagnosis/Problems Diagnosis/Problems (1) Essential (primary) hypertension (2) HLD (hyperlipidemia) (3) Hypothyroidism (4) Prophylactic measure (5) Pre-op exam (6) Osteoporosis (7) Hip fracture Status: Acute (8) Wrist fracture Status: Acute CHAPINCITO RIVERO MD Aug 22, 2021 09:17
[2021-08-22] MEDS ORDERED: LIDOCAINE PF 2% 5 ML (XYLOCAINE) VIAL ONE (10:14)
[2021-08-22] MEDS ORDERED: SEVOFLURANE (ULTANE) 15 ML INHAL SOLN ONE ×2 (10:14→12:34)
[2021-08-22] MEDS ORDERED: ONDANSETRON 4 MG/2 ML (SDV) Z0FRAN ONE (10:14)
[2021-08-22] MEDS ORDERED: fentaNYL INJ 100 MCG/2 ML AMP ONE (10:14)
[2021-08-22] MEDS ORDERED: proPOfol 200 MG/20 ML (DIPRIVAN) VIAL IV ONE (10:14)
[2021-08-22] MEDS ORDERED: MIDAZOLAM 2 MG/2 ML (VERSED) VIAL ONE (10:14)
[2021-08-22] MEDS: LACTATED RINGERS 1,000 ML IV PRN ×2 (10:37→12:34)
[2021-08-22] MEDS ORDERED: LACTATED RINGERS 1,000 ML IV PRN (11:00)
[2021-08-22] MEDS ORDERED: ceFAZolin INJECTION 2,000 MG ONE (11:29)
[2021-08-22] MEDS ORDERED: BUPIVACAINE 0.25% 30 ML (SENSORCAINE) VIAL ONE (12:15)
--- NOTE | 2021-08-22 12:57 | Operative Report - Ortho ---
Operative Report Surgeon (s)/Motor Grader Rough Grade (s) Surgeon LOU SANFORD MD Motor Grader Rough Grade n/a Pre-Operative Diagnosis Left Intertrochanteric Femur Fracture Post-Operative Diagnosis same Operative Report Date of Procedure: Aug 22, 2021 Name of Procedure Performed: Intramedullary nailing of left intertrochanteric femur fracture Description & Findings After obtaining informed consent and marking the patient in the preoperative area, patient did receive IV antibotics and was taken to the operating room. General anesthesia was induced. Patient was placed on the fracture table. Right leg was placed in the well leg quinn. The left leg was placed in the traction spar. Surgical timeout was taken. Using the fracture table, traction and internal rotation was used to reduce the fracture. C-arm demonstrated adequate reduction. The left lower extremity was prepped and draped in the usual sterile fashion. Incision was made just proximal to the greater trochanter. Blunt dissection was carried down to the tip of the trochanter. Guide pin was then inserted through a trochanteric entry point. Position of the wire was verified in the AP and Lateral planes. The entry reamer was then passed over the guide pin down to the level of the lesser trochanter; reamer and guide pin were removed. A trochanteric gamma nail with a 10 mm diameter was selected and assembled on the back table. Nail was introduced into the canal and seated by hand. Guide was used to establish position of the cephalomedullary screw. Guide pin was inserted and version was obtained on the lateral image of the C-arm. Measur ement was taken and was determined to be a 100 mm screw. Reamer was used over the guide pin and the guide pin was removed. A 100 mm cephalomedullary screw was then placed. Set screw was then placed so it would not turn; the set screw was then backed off 1/8th of a turn. Triple trocar was then used to place a screw distally in the static position. Final images were obtained on the C-arm in the AP and lateral planes; images demonstrated adequate reduction of the fracture and appropriate position of the hardware. Wounds were lavaged with saline. Subcutaneous layer was closed with 2-0 vicryl. Skin was closed with aarti. Wounds were dressed with xeroform, 4x4s, ABD, and tape. Patient tolerated the procedure well and was stable to the recovery room. Anesthesia Type General Estimated Blood Loss 100 mL Specimen(s) collected/removed None LOU SANFORD MD Aug 22, 2021 12:57
[2021-08-22] MEDS ORDERED: morphine INJ 10 MG/ML 1ML (SYR OR VIAL) IVP ONE (13:00)
[2021-08-22] MEDS ORDERED: ONDANSETRON 4 MG/2 ML (SDV) Z0FRAN IVP PRN (13:00)
[2021-08-22] MEDS ORDERED: MEPERIDINE (DEMEROL) INJ 50 MG/ML IVP ONE (13:00)
--- NOTE | 2021-08-22 14:10 | Diagnostic Imaging Report ---
INDICATION: Fluoroscopy during left hip surgery. Fluoroscopy was provided in the OR during left hip surgery. 69 seconds of fluoroscopic time was utilized. Four images were obtained demonstrating intramedullary edmundo and compression screw transfixing the intertrochanteric left hip fracture. Alignment appears anatomic. IMPRESSION: Fluoroscopy for left hip ORIF. Dictated by: Dictated on workstation # [id number]
[2021-08-22] MEDS ORDERED: PANT40TA52 PO (15:00)
[2021-08-22] MEDS ORDERED: CHOL500050 PO (15:00)
[2021-08-22] MEDS ORDERED: LATA2.5D19 OU (15:00)
[2021-08-22] MEDS ORDERED: ALEN70TA80 PO (15:00)
[2021-08-22] MEDS ORDERED: POTA10TA36 PO (15:00)
[2021-08-22] MEDS: HYDROcodone/APAP 5 MG/325 MG (LORTAB) TAB PO PRN (23:46)
[2021-08-23] MEDS: LACTATED RINGERS 1,000 ML IV SCH ×3 (02:57→18:43)
[2021-08-23 04:41] VITALS: BP 119/58
[2021-08-23] MEDS: HYDROcodone/APAP 5 MG/325 MG (LORTAB) TAB PO PRN ×3 (08:15→18:38)
[2021-08-23 08:25] VITALS: BP 99/50
--- NOTE | 2021-08-23 09:43 | Progress Note - Hospitalist ---
Subjective HPI/CC On Admission Date Seen by Provider: Aug 23, 2021 Time Seen by Provider: 09:38 Pt is a 70yoCF with a PMH of HTN, HLD, hypothyroidism, and remote history of breast cancer who presented to the ER due to pain after a fall. She states she was walking out of her [employer] carrying a lot of things and was offered help but declined. Shortly after that she tripped and fell. She denied any LOC or prodomal symptoms and that she simply tripped. EMS was summoned and imaging in the ER revealed both left hip fracture and left wrist fracture. She reports her pain today is much improved and controlled with current regimen. Subjective/Events-last exam Pt reports having 5/10 pain. Attempted to work with therapy but thought she was going ot pass out. Unsure if she was lightheaded or if it was due to the pain. Also requests help with ordering breakfast. Objective Exam Vital Signs Vital Signs Date Time Temp Pulse Resp B/P (MAP) Pulse Ox O2 Delivery O2 Flow Rate FiO2 08/23/21 08:25 36.0 112 20 99/50 (66) 93 Room Air 08/22/21 14:02 10.00 Capillary Refill : Less Than 3 SecondsLess Than 3 Seconds General Appearance: No Apparent Distress, WD/WN Respiratory: Lungs Clear, No Respiratory Distress Cardiovascular: Regular Rate, Rhythm, No Murmur Gastrointestinal: Normal Bowel Sounds, Soft Neurologic/Psychiatric: Alert, Oriented x3 Results/Procedures Lab Patient resulted labs reviewed. Imaging: Reviewed Imaging Report Assessment/Plan Assessment and Plan Assess & Plan/Chief Complaint Comminuted intertrochanteric left femoral fracture distal radial fracture osteoporosis POD #1 Continue pain regimen PT/OT Orthopedic surgery consulted, appreciate recs already on alendronate and calcium supplement at home IRF consult HTN HLD Hold antihypertensives due to relative hypotension Continue statin Hypothyroidism Continue home synthroid DVt ppx: Lovenox Diagnosis/Problems Diagnosis/Problems (1) Essential (primary) hypertension (2) HLD (hyperlipidemia) (3) Hypothyroidism (4) Prophylactic measure (5) Pre-op exam (6) Osteoporosis (7) Hip fracture Status: Acute (8) Wrist fracture Status: Acute CHAPINCITO RIVERO MD Aug 23, 2021 09:43
--- NOTE | 2021-08-23 09:47 | Physical Therapy Evaluation ---
PT Evaluation-General Medical Diagnosis Admission Date Aug 21, 2021 at 20:33 Medical Diagnosis: left hip fracture/left wrist fracture Onset Date: Aug 21, 2021 Therapy Diagnosis Therapy Diagnosis: generalized weakness/debility Height/Weight Height (Feet): 5 Height (Inches): 9.00 Weight (Pounds): 175 Weight (Ounces): 0.0 Precautions Precautions/Isolations: Fall Prevention, Standard Precautions Weight Bear Status Right Lower Extremity: Right Full Weight Bearing Left Lower Extremity: Left Weight Bearing/Tolerated No weight through left wrist Referral Physician: Tara Reason for Referral: Evaluation/Treatment Medical History Pertinent Medical History: HTN, Hypothroidism Additional Medical History breast cancer with lumpectomy Current History EMS secondary to falling off a curb while carrying stuff out of tao[place] Reviewed History: Yes Social History Home: Single Level Current Living Status: Spouse Prior Prior Level of Function SCALE: Activities may be completed with or without assistive devices. 3-Buoakcldzv-lypyvib completes the activity by him/herself with no assistance from a helper. 5-Set-up or Clean-up Assistance-helper sets up or cleans up; patient completes activity. [place] assists only prior to or following the activity. 4-Supervision or Touching Assistance-helper provides verbal cues and/or touching/steadying and/or contact guard assistance as patient completes activity. Assistance may be provided throughout the activity or intermittently. 3-Partial/Moderate Assistance-helper does LESS THAN HALF the effort. [place] lifts, holds or supports trunk or limbs, but provides less than half the effort. 2-Substantial/Maximal Assistance-helper does MORE THAN HALF the effort. [place] lifts or holds trunk or limbs and provides more than half the effort. 6-Suhccosei-xzodgw does ALL the effort. Patient does none of the effort to complete the activity. Or, the assistance of 2 or more helpers is required for the patient to complete the activity. If activity was not attempted, code reason: 7-Patient Refused. 9-Not Applicable-not attempted and the patient did not perform the activity before the current illness, exacerbation or injury. 10-Not Attempted due to Environmental Limitations-(lack of equipment, weather restraints, etc.). 88-Not Attempted due to Medical Conditions or Safety Concerns. Bed Mobility: 6 Transfers (B,C,W/C): 6 Gait: 6 Stairs: 6 Indoor Mobility (Ambulation): Independent Stairs: Independent Prior Devices Use: None PT Evaluation-Current Subjective Patient agrees to PT. Pain Numeric Pain Scale: 10-Worst Possible Pain Location: Left Location Body Site: Wrist Pain Description: Acute Objective Patient Orientation: Person, Normal For Age Attachments: Stroud Catheter, IV ROM/Strength ROM Lower Extremities right LE WFL/ left LE limited due to pain Strength Lower Extremities right LE 3/5 grossly/left LE 3-/5 grossly Integumentary/Posture Integumentary refer to nursing notes Bladder Incontinence: Stroud Cath Posture slightly kyphotic Neuromuscular (Tone, Coordination, Reflexes) grossly intact Sensory Vision: Wears Glasses Hearing: Hearing Aid/Aides Transfers Roll Left to Right (QC): 1 Sit to Lying (QC): 1 Lying to Sitting/Side of Bed(Q: 1 Sit to Stand (QC): 2 Chair/Nej-ur-Oouzt Xfer(QC): 88 Patient BP decreased with sit to stand to 90/50 with patient returning to supine with RN and PT assist. Gait Does the Patient Walk?: No and Walking Goal IS indicated Gait Assistive Device: Walker Platform (left) Balance Sitting Static: Fair Sitting Dynamic: Fair Standing Static: Poor Standing Dynamic: Poor Assessment/Needs 70 y.o. female, will benefit from skilled PT to address functional strength and mobility to improve current LOF to safely return to home at maximum LOF. Rehab Potential: Fair PT Citrix Lead Goals Jail Goals PT Citrix Lead Goals Time Frame: Sep 14, 2021 Roll Left & Right (QC): 5 Sit to Lying (QC): 5 Lying-Sitting on Side/Bed(QC): 5 Sit to Stand (QC): 5 Chair/Ipj-si-Tquet Xfer(QC): 5 Toilet Transfer (QC): 5 Does the Patient Walk: Yes Walk 10 feet (QC): 5 Walk 50ft with 2 Turns (QC): 5 Walk 150 ft (QC): 5 PT Plan Problem List Problem List: Activity Tolerance, Functional Strength, Safety, Balance, Gait, Transfer, Bed Mobility Treatment/Plan Treatment Plan: Continue Plan of Care Treatment Plan: Bed Mobility, Education, Functional Activity Sheyla, Functional Strength, Gait, Safety, Therapeutic Exercise, Transfers Treatment Duration: Sep 14, 2021 Frequency: 11 times per week Estimated Hrs Per Day: .5 hour per day Patient and/or Family Agrees t: Yes Time/GCodes Time In: 755 Time Out: 827 Total Billed Treatment Time: 32 Total Billed Treatment 1 visit EVModC 16 min FA 16 min ARABELLA SANFORD PT Aug 23, 2021 09:47
[2021-08-23] MEDS: LEVOTHYROXINE 25 MCG (LEVOTHROID) TAB PO SCH (10:27)
[2021-08-23] MEDS: ENOXAPARIN 30 MG/0.3 ML (LOVENOX) SYR SC SCH ×2 (10:27→21:43)
[2021-08-23] MEDS: PANTOPRAZOLE 40 MG (PROTONIX) TAB PO SCH (10:27)
[2021-08-23] MEDS: DOCUSATE SODIUM 100 MG (COLACE) CAP PO SCH (10:28)
--- NOTE | 2021-08-23 11:28 | Occupational Therapy Eval ---
OT Evaluation-General/PLF Medical Diagnosis Admission Date Aug 21, 2021 at 20:33 Medical Diagnosis: left hip fracture/left wrist fracture Onset Date: Aug 21, 2021 Therapy Diagnosis Therapy Diagnosis: decreased ADL status, weakness Height/Weight Height (Feet): 5 Height (Inches): 9.00 Weight (Pounds): 175 Weight (Ounces): 0.0 Precautions Precautions/Isolations: Fall Prevention, Standard Precautions Weight Bear Status Weight Bearing Restriction: Weight Bearing/Tolerated (LLE), Non Weight Bearing (L wrist) Referral Physician: Tara Referral Reason: Evaluation/Treatment Medical History Pertinent Medical History: HTN, Hypothroidism Additional Medical History HLD, remote hx breast cancer Current History fall leading to L femur fx s/p IM nail (WBAT), and L wrist fx (NWB) Social History Home: Single Level Current Living Status: Spouse ADL-Prior Level of Function SCALE: Activities may be completed with or without assistive devices. 4-Kpankzzpfk-igtwubo completes the activity by him/herself with no assistance from a helper. 5-Set-up or Clean-up Assistance-helper sets up or cleans up; patient completes activity. [place] assists only prior to or following the activity. 4-Supervision or Touching Assistance-helper provides verbal cues and/or touching/steadying and/or contact guard assistance as patient completes activity. Assistance may be provided throughout the activity or intermittently. 3-Partial/Moderate Assistance-helper does LESS THAN HALF the effort. [place] lifts, holds or supports trunk or limbs, but provides less than half the effort. 2-Substantial/Maximal Assistance-helper does MORE THAN HALF the effort. [place] lifts or holds trunk or limbs and provides more than half the effort. 0-Aacbsabij-izjcez does ALL the effort. Patient does none of the effort to co mplete the activity. Or, the assistance of 2 or more helpers is required for the patient to complete the activity. If activity was not attempted, code reason: 7-Patient Refused. 9-Not Applicable-not attempted and the patient did not perform the activity before the current illness, exacerbation or injury. 10-Not Attempted due to Environmental Limitations-(lack of equipment, weather restraints, etc.). 88-Not Attempted due to Medical Conditions or Safety Concerns. ADL PLOF Comments Pt indicates IND with ADLs and functional mobility at PLOF, no AD/AE. She has a tub shower with an extended bath bench and grab bars. Self Care: Independent Functional Cognition: Independent DME/Equipment: Bath Bench, Grab Bars, Tub/Shower OT Current Status Subjective Pt laying in bed, family members at bedside. Pt agreeable to OT Tx, states her BP dropped while standing with PT earlier today. Mental Status/Objective Patient Orientation: Person, Place, Situation Attachments: Stroud Catheter Current Upper Extremity ROM WFL B/L shoulders, BUE shoulder flexion to approx 140 degrees L elbow/wrist theodore wrapped, not tested due to wrist fx. WFL at fingers PIP and DIP joints, MCPs not tested due to theodore wraps Upper Extremity Coordination decreased due to limited movement L hand Upper Extremity Strength grossly 3+/5 RUE, grossly 3+/5 LUE (LUE not formally tested due to NWB restrictions at wrist) Edema: slight swelling noted in L fingers digits 2-5 ADL-Treatment Eating (QC): 5 (Per pt report, pt able to drink and eat banana) Oral Hygiene (QC): 5 (Pt indicates she brushed her teeth, setup/cleanup assistance.) Shower/Bathe Self (QC): 1 (based on clinical judgment) Lower Body Dressing (QC): 1 (based on clinical judgment) On/Off Footwear (QC): 1 (based on clinical judgment.) Toileting Hygiene (QC): 1 (catheter) Other Treatments Pt laying in bed, family at bedside. OT educated pt on purpose and benefit of OT, Pt provided information about PLOF and home set up. Pt states she already completed oral care, hair brushing and face washing this morning, set up assistance with all. Due to decreased BP with PT tx this morning, only bed level tasks complete on this date. OT educated pt on purpose and benefit of UE exercises, pt completed x10 reps LUE shoulder flexion and x10 reps LUE finger flexion/extension. Pt encouraged to complete these exercises throughout the day and to keep LUE elevated to decrease swelling in fingers. Per PT Evaluation, pt required total assistance with rolling and sitting to lying, max A sit to stand. Post tx, pt in bed, call light in reach and all needs met Education OT Patient Education: Correct positioning, Exercise program, Modified ADL techniques, Progress toward Goal/Update tx plan, Purpose of tx/functional activities Teaching Recipient: Patient Teaching Methods: Discussion Response to Teaching: Verbalize Understanding OT Border Measurer Goals Half-Way Goals Time Frame: Sep 13, 2021 Eating (QC): 6 Oral Hygiene (QC): 6 Toileting Hygiene (QC): 4 Shower/Bathe Self (QC): 4 Upper Body Dressing (QC): 5 Lower Body Dressing (QC): 4 On/Off Footwear (QC): 4 1=Demonstrate adherence to instructed precautions during ADL tasks. 2=Patient will verbalize/demonstrate understanding of assistive devices/modif ications for ADL. 3=Patient will improve strength/tolerance for activity to enable patient to perform ADL's. OT Education/Plan Problem List/Assessment Assessment: Decreased Activ Tolerance, Decreased UE Strength, Dependent Transfers, Impaired Bed Mobility, Impaired Coordination, Impaired Funct Balance, Impaired I ADL's, Impaired Self-Care Skills, Restricted Funct UE ROM Discharge Recommendations Plan/Recommendations: Continue POC Therapy Discharge Recommendati: Post Acute OT Treatment Plan/Plan of Care Patient would benefit from OT for education, treatment and training to promote independence in ADL's, mobility, safety and/or upper extremity function for ADL's. Plan of Care: ADL Retraining, Functional Mobility, UE Funct Exercise/Act Treatment Duration: Sep 13, 2021 Frequency: 5 times per week Estimated Hrs Per Day: .25 hour per day Rehab Potential: Fair Time/GCodes Start Time: 10:12 Stop Time: 10:24 Total Time Billed (hr/min): 12 Billed Treatment Time 1, JALEN JAVED OT Aug 23, 2021 11:28
[2021-08-23 12:00] VITALS: BP_SYST 142; BP_SYST 149; BP_DIAS 79; BP_DIAS 83
--- NOTE | 2021-08-23 12:09 | Progress Note - Ortho ---
Progress Note Subjective Date of Exam 08/23/21 Chief Complaint Not able to move left leg HPI/Events since last exam POD #1 IM nailing of L IT Femur Fx pain controlled, has started with therapy, concerned about feeling of weakness in leg Review of Systems did not obtain Allergies: Coded Allergies: No Known Drug Allergies (Unverified , 01/17/19) Home Meds Reported Medications Potassium Chloride (Potassium Chloride) 10 Meq Tab.er.prt, 10 MEQ PO DAILY, TAB 08/22/21 Alendronate Sodium (Alendronate Sodium) 70 Mg Tablet, 70 MG PO WEEK, TAB 08/22/21 Pantoprazole Sodium (Pantoprazole Sodium) 40 Mg Tablet.dr, 40 MG PO DAILY, TAB 08/22/21 Cholecalciferol (Vitamin D3) (Vitamin D3) 125 Mcg Capsule, 125 MCG PO DAILY, CAP 08/22/21 Latanoprost (Xalatan) 2.5 Ml Drops, 1 DROP OU HS, DROPS 08/22/21 Calcium Carb/D3/Magnesium/Zinc (Josue Mag Zinc + D3 Tablet) 1 Each Tablet, 1 TAB PO DAILY, TAB 01/17/19 Timolol Maleate (Timolol Maleate 0.5%) 5 Ml Drops, 1 DROP OU BID, EA 01/17/19 Furosemide (Furosemide) 20 Mg Tablet, 20 MG PO DAILY, TAB 01/17/19 Amlodipine Besylate (Amlodipine Besylate) 5 Mg Tablet, 5 MG PO DAILY, TAB 01/17/19 Atenolol (Atenolol) 50 Mg Tablet, 50 MG PO DAILY, TAB 01/17/19 Levothyroxine Sodium (Levothyroxine Sodium) 25 Mcg Tablet, 25 MCG PO DAILY, TAB 01/17/19 Simvastatin (Simvastatin) 20 Mg Tablet, 20 MG PO HS, TAB 01/17/19 Discontinued Reported Medications Anastrozole (Anastrozole) 1 Mg Tablet, 1 MG PO DAILY, TAB 02/15/19 Cholecalciferol (Vitamin D3) (Vitamin D3) 400 Unit Capsule, 400 UNIT PO DAILY, CAP 01/17/19 Folic Acid (Folic Acid) 0.8 Mg Tablet, 0.8 MG PO DAILY, TAB 01/17/19 Potassium Chloride (Potassium Chloride) 10 Meq Tablet.er, 10 MEQ PO DAILY, TAB 01/17/19 Objective Exam L Hip: Dressing C/D/I, able to dorsiflex ankle, no s/s of DVT, contracts quads Vital Signs Vital Signs Date Time Temp Pulse Resp B/P (MAP) Pulse Ox O2 Delivery O2 Flow Rate FiO2 08/23/21 08:25 36.0 112 20 99/50 (66) 93 Room Air 08/23/21 08:00 Room Air 08/23/21 04:41 36.6 102 16 119/58 (78) 92 Room Air 08/22/21 23:40 37.0 97 16 98/59 (72) 92 Room Air 08/22/21 20:12 Room Air 08/22/21 19:51 36.8 101 16 121/59 (79) 95 Room Air 08/22/21 16:02 35.7 87 16 119/59 (79) 95 Room Air 08/22/21 14:02 98 Nasal Cannula 10.00 08/22/21 13:40 35.8 90 16 137/64 (88) 93 Nasal Cannula 2.00 08/22/21 13:30 36.2 10 147/79 (101) 98 Nasal Cannula 2 08/22/21 13:30 Nasal Cannula 2 08/22/21 13:21 10 139/65 (89) 95 Room Air 08/22/21 13:19 Room Air 08/22/21 13:10 11 142/67 (92) 99 OxyMask 2 08/22/21 13:10 OxyMask 1 08/22/21 13:00 10 137/69 (91) 100 OxyMask 10 08/22/21 12:55 OxyMask 10 08/22/21 12:50 13 122/72 (89) 97 OxyMask 10 08/22/21 12:41 OxyMask 10 08/22/21 12:41 36.2 20 106/60 (75) 97 OxyMask 10 I & O 08/23/21 07:00 Intake Total 1950 ml Output Total 1950 ml Balance 0 ml Lab Results Microbiology 08/22/21 MRSA Screen - Final, Complete MRSA not isolated 08/21/21 Urine Culture - Preliminary, Resulted Gram Negative Bernard Assessment and Plan Assessment Post OP Problem List Post Op L DR Finley Plan Continue therapy DVT prophylaxis Consider transitioning to cast for distal radius next week. Final Diagonsis Post OP Level of the visit: Level 3 (global) LOU SANFORD MD Aug 23, 2021 12:08
[2021-08-23] MEDS: morphine INJ 4 MG/ML 1 ML (VIAL/SYRINGE) IVP PRN ×2 (13:39→21:44)
--- NOTE | 2021-08-23 14:19 | Physical Therapy Daily Note ---
PT Daily Note-Current Subjective Patient reluctantly agrees to PT. Pain Numeric Pain Scale: 8 Location: Left Location Body Site: Hip Pain Description: Acute Mental Status Patient Orientation: Normal For Age Attachments: Stroud Catheter, IV Transfers SCALE: Activities may be completed with or without assistive devices. 8-Yuxbbykjtr-qpelwtj completes the activity by him/herself with no assistance from a helper. 5-Set-up or Clean-up Assistance-helper sets up or cleans up; patient completes activity. [place] assists only prior to or following the activity. 4-Supervision or Touching Assistance-helper provides verbal cues and/or touching/steadying and/or contact guard assistance as patient completes activity. Assistance may be provided throughout the activity or intermittently. 3-Partial/Moderate Assistance-helper does LESS THAN HALF the effort. [place] lifts, holds or supports trunk or limbs, but provides less than half the effort. 2-Substantial/Maximal Assistance-helper does MORE THAN HALF the effort. [place] lifts or holds trunk or limbs and provides more than half the effort. 0-Uraonirgv-sajfvk does ALL the effort. Patient does none of the effort to complete the activity. Or, the assistance of 2 or more helpers is required for the patient to complete the activity. If activity was not attempted, code reason: 7-Patient Refused. 9-Not Applicable-not attempted and the patient did not perform the activity before the current illness, exacerbation or injury. 10-Not Attempted due to Environmental Limitations-(lack of equipment, weather restraints, etc.). 88-Not Attempted due to Medical Conditions or Safety Concerns. Sit to Lying (QC): 2 Lying to Sitting/Side of Bed(Q: 2 Sit to Stand (QC): 2 Chair/Yip-au-Oungu Xfer(QC): 7 Weight Bearing Right Lower Extremity: Right Full Weight Bearing Left Lower Extremity: Left Weight Bearing/Tolerated No weight through left wrist Gait Training Does the Patient Walk?: No and Walking Goal IS indicated Distance: 3 feet several scooting steps to left with use of left platform FWW/no foot clearance/trunk flexed posture Exercises Supine Ex: Ankle pumps, Quad Set, Heel Slides (AAROM left LE), Straight leg raise (AAROM left LE) Supine Reps: 12 Seated Therapy Exercises: Long arc quads Seated Reps: 12 (AAROM left LE) Assessment Patient requires much encouragement to participate with PT and complete exercis es and gait training. Continuous VC's for posture and WBAT left LE. Patient does self limit by saying I can't and will sit impulsively. Education with patient on importance of participating to improve strength and mobility to return to home. Patient to transfer to ARU in a.m. PT Press Setter Goals Press Setter Goals PT Usp Goals Time Frame: Sep 14, 2021 Roll Left & Right (QC): 5 Sit to Lying (QC): 5 Lying-Sitting on Side/Bed(QC): 5 Sit to Stand (QC): 5 Chair/Fsx-xd-Yrstg Xfer(QC): 5 Toilet Transfer (QC): 5 Does the Patient Walk: Yes Walk 10 feet (QC): 5 Walk 50ft with 2 Turns (QC): 5 Walk 150 ft (QC): 5 PT Plan Treatment/Plan Treatment Plan: Continue Plan of Care Treatment Plan: Bed Mobility, Education, Functional Activity Sheyla, Functional Strength, Gait, Safety, Therapeutic Exercise, Transfers Treatment Duration: Sep 14, 2021 Frequency: 11 times per week Estimated Hrs Per Day: .5 hour per day Patient and/or Family Agrees t: Yes Time/GCodes Time In: 1240 Time Out: 1310 Total Billed Treatment Time: 30 Total Billed Treatment 1 visit EX 14 min GT 16 min ARABELLA SANFORD PT Aug 23, 2021 14:19
--- NOTE | 2021-08-23 15:26 | Anesthesia-General Post-Op ---
General Patient Condition Mental Status/LOC: Same as Preop Cardiovascular: Satisfactory Nausea/Vomiting: Absent Respiratory: Satisfactory Pain: Controlled Complications: Absent Post Op Complications Complications None Follow Up Care/Instructions Patient Instructions None needed. Anesthesia/Patient Condition Patient Condition Patient is doing well, no complaints, stable vital signs, no apparent adverse anesthesia problems. ZECHARIAH LAO DO Aug 23, 2021 15:25
[2021-08-23 15:27] VITALS: BP 134/63
[2021-08-23 19:16] VITALS: BP 140/66
[2021-08-23] MEDS ORDERED: hydrALAZINE (APESOLINE) 20 MG/ML VIAL IV PRN (20:45)
[2021-08-23] MEDS ORDERED: LATANOPROST 0.005% (XALATAN) OPHTH SOLN 2.5 ML OU SCH (21:00)
[2021-08-23] MEDS ORDERED: SIMvastatin 20 MG (ZOCOR) TAB PO SCH (21:00)
[2021-08-23] MEDS: TIMOLOL MALEATE 0.5% 5 ML (TIMOPTIC) BTL OU SCH (21:43)
[2021-08-24] VITALS: BP 113/70
[2021-08-24 04:00] VITALS: BP 151/65
[2021-08-24] MEDS ORDERED: ENOXAPARIN 100 MG/1 ML (LOVENOX) SYR SC ONE (04:15)
[2021-08-24] MEDS ORDERED: ENOXAPARIN 100 MG/1 ML (LOVENOX) SYR ONE (04:23)
[2021-08-24 04:48] LABS: ABG OXYGEN SATURATION 90 % (94-100); ABG PCO2 39 MMHG (35-45); ABG PH 7.46 (7.37-7.43); ABG PO2 59 MMHG (79-93); ABG TCO2 28.9 MMOL/L (21.0-31.0)
[2021-08-24 04:51] LABS: ALLENS TEST YES-POS; INSPIRED O2 6L; PATIENT TEMP 37; VENTILATOR NO
[2021-08-24 05:43] LABS: HEMOGLOBIN 9.2 g/dL (11.5-16.0); MEAN PLATELET VOLUME 9.2 fL (9.0-12.2); WHITE BLOOD COUNT 18.1 10^3/uL (4.3-11.0)
[2021-08-24 05:53] LABS: CHLORIDE 102 MMOL/L (98-107); POTASSIUM 3.7 MMOL/L (3.6-5.0); SODIUM 136 MMOL/L (135-145)
[2021-08-24 05:54] LABS: CALCIUM 8.4 MG/DL (8.5-10.1); GLUCOSE 112 MG/DL (70-105)
[2021-08-24 05:56] LABS: CARBON DIOXIDE 24 MMOL/L (21-32)
[2021-08-24 05:58] LABS: CREATININE SERUM 0.63 MG/DL (0.60-1.30); GFR ESTIMATED 93
[2021-08-24 05:59] LABS: BUN/CREATININE RATIO 13
[2021-08-24] MEDS ORDERED: cefTRIAXone 1,000 MG in WATER (STERILE) FOR INJECTION 10 ML IV ONE (06:30)
--- NOTE | 2021-08-24 06:49 | Diagnostic Imaging Report ---
INDICATION: Short of air EXAMINATION: Chest 08/24/2021 COMPARISON: 08/21/2021 FINDINGS: There are diffuse infiltrates throughout the right lung, new since the previous imaging. There is eventration of the left hemidiaphragm. Multiple old rib fractures noted on the left. There are no effusions. No pneumothorax. Heart and pulmonary vasculature stable. IMPRESSION: 1. New infiltrates throughout the right lung. Dictated by: Dictated on workstation # [id number]
--- NOTE | 2021-08-24 07:13 | Diagnostic Imaging Report ---
PROCEDURE: CT angiography of the chest with contrast. TECHNIQUE: Multiple contiguous axial images were obtained through the chest after uneventful bolus administration of intravenous contrast. 3D reconstructed CTA MIP acquisitions were also performed. Auto Exposure Controls were utilized during the CT exam to meet ALARA standards for radiation dose reduction. INDICATION: Increasing oxygen requirements. Elevated D-dimer. COMPARISON: 08/24/2021. 01/17/2019. FINDINGS: This helical CT pulmonary angiogram is diagnostic to the subsegmental level branches of the pulmonary artery and demonstrates no pulmonary emboli. The heart and great vessels are unremarkable. There is no pericardial effusion. There is no axillary, mediastinal, or hilar adenopathy. Prominent nodule is again seen in the left lobe of the thyroid. Small bilateral pleural effusions are present. Consolidative opacities are seen in the dependent portion of the right upper lobe and throughout the majority of the right lower lobe. Small amount of dependent atelectasis is seen in the left lung base. No pulmonary nodules are seen. No central endobronchial obstructing lesions. No pneumothorax. No acute osseous abnormalities are seen. There is prominent calcification extending from the T7-T8 level resulting in severe spinal canal stenosis at this level. Chronic rib fractures are noted on the left. Moderate hiatal hernia is seen. The gallbladder is mildly distended with a gallstone in the neck of the gallbladder. IMPRESSION: 1. No acute pulmonary embolus. 2. Lobar pneumonia involving the right lower lobe with involvement in the dependent right upper lobe. 3. Bilateral small pleural effusions. 4. Gallstone in the neck of the gallbladder with mildly distended gallbladder. Recommend correlation with patient history and symptoms and, if indicated, liver gallbladder ultrasound to further evaluate. 5. Moderate hiatal hernia. 6. Prominent calcifications extending from the T7-T8 level resulting in severe spinal canal stenosis. This was present on the prior exam from 01/17/2019. Dictated by: Dictated on workstation # [id number]
[2021-08-24] MEDS ORDERED: CATHETER FLUSH 10 ML SYR IV PRN (07:15)
[2021-08-24] MEDS ORDERED: HOLD METFORMIN - RECEIVED CONTRAST 20 ML VIAL IV SCH (07:15)
[2021-08-24] MEDS ORDERED: NS 100 ML (IVPB) BAG IV ONE (07:15)
[2021-08-24] MEDS ORDERED: IOHEXOL 350 MG/ML 100 ML (OMNIPAQUE 350) VIAL IV ONE (07:15)
[2021-08-24] MEDS: LEVOTHYROXINE 25 MCG (LEVOTHROID) TAB PO SCH (07:18)
[2021-08-24] MEDS: LACTATED RINGERS 1,000 ML IV SCH (07:18)
[2021-08-24 08:06] VITALS: BP_SYST 131; BP_SYST 169; BP_DIAS 61; BP_DIAS 74
[2021-08-24] MEDS: TIMOLOL MALEATE 0.5% 5 ML (TIMOPTIC) BTL OU SCH (08:09)
[2021-08-24] MEDS: DOCUSATE SODIUM 100 MG (COLACE) CAP PO SCH (08:09)
[2021-08-24] MEDS: PANTOPRAZOLE 40 MG (PROTONIX) TAB PO SCH (08:10)
[2021-08-24] MEDS: HYDROcodone/APAP 5 MG/325 MG (LORTAB) TAB PO PRN (08:10)
[2021-08-24] MEDS ORDERED: ZINC PO SCH (09:00)
[2021-08-24] MEDS ORDERED: KCL 10 MEQ TAB (MICRO K) PO SCH (09:00)
[2021-08-24] MEDS ORDERED: D3 PO SCH (09:00)
[2021-08-24] MEDS ORDERED: MAGNESIUM PO SCH (09:00)
[2021-08-24] MEDS ORDERED: VITAMIN D3 125 MCG (5,000 UNITS) CAPSULE PO SCH (09:00)
[2021-08-24] MEDS ORDERED: CALCIUM CARB PO SCH (09:00)
[2021-08-24] MEDS ORDERED: [UNRECOGNIZED DRUG - OTHER] PO SCH (09:00)
[2021-08-24] MEDS ORDERED: LACTATED RINGERS 1,000 ML IV ONE (09:00)
--- NOTE | 2021-08-24 09:40 | Progress Note - Ortho ---
Progress Note Subjective Date of Exam 08/24/21 Chief Complaint Left Hip Pain HPI/Events since last exam POD #2 IM nailing of left IT femur fx Had some difficulties with oxygenation through the night, currently on supplemental O2, no specific difficulties regarding hip Review of Systems did not obtain Allergies: Coded Allergies: No Known Drug Allergies (Unverified , 01/17/19) Home Meds Reported Medications Potassium Chloride (Potassium Chloride) 10 Meq Tab.er.prt, 10 MEQ PO DAILY, TAB 08/22/21 Alendronate Sodium (Alendronate Sodium) 70 Mg Tablet, 70 MG PO WEEK, TAB 08/22/21 Pantoprazole Sodium (Pantoprazole Sodium) 40 Mg Tablet.dr, 40 MG PO DAILY, TAB 08/22/21 Cholecalciferol (Vitamin D3) (Vitamin D3) 125 Mcg Capsule, 125 MCG PO DAILY, CAP 08/22/21 Latanoprost (Xalatan) 2.5 Ml Drops, 1 DROP OU HS, DROPS 08/22/21 Calcium Carb/D3/Magnesium/Zinc (Josue Mag Zinc + D3 Tablet) 1 Each Tablet, 1 TAB PO DAILY, TAB 01/17/19 Timolol Maleate (Timolol Maleate 0.5%) 5 Ml Drops, 1 DROP OU BID, EA 01/17/19 Furosemide (Furosemide) 20 Mg Tablet, 20 MG PO DAILY, TAB 01/17/19 Amlodipine Besylate (Amlodipine Besylate) 5 Mg Tablet, 5 MG PO DAILY, TAB 01/17/19 Atenolol (Atenolol) 50 Mg Tablet, 50 MG PO DAILY, TAB 01/17/19 Levothyroxine Sodium (Levothyroxine Sodium) 25 Mcg Tablet, 25 MCG PO DAILY, TAB 01/17/19 Simvastatin (Simvastatin) 20 Mg Tablet, 20 MG PO HS, TAB 01/17/19 Discontinued Reported Medications Anastrozole (Anastrozole) 1 Mg Tablet, 1 MG PO DAILY, TAB 02/15/19 Cholecalciferol (Vitamin D3) (Vitamin D3) 400 Unit Capsule, 400 UNIT PO DAILY, CAP 01/17/19 Folic Acid (Folic Acid) 0.8 Mg Tablet, 0.8 MG PO DAILY, TAB 01/17/19 Potassium Chloride (Potassium Chloride) 10 Meq Tablet.er, 10 MEQ PO DAILY, TAB 01/17/19 Objective Exam Left Hip: Incisions C/D/I + DF of ankle No s/s of DVT Vital Signs Vital Signs Date Time Temp Pulse Resp B/P (MAP) Pulse Ox O2 Delivery O2 Flow Rate FiO2 08/24/21 09:33 94 Nasal Cannula 2.00 08/24/21 08:06 37.9 123 20 131/61 (84) 94 High Flow N/C 2.00 08/24/21 07:00 122 08/24/21 06:26 121 08/24/21 04:00 37.0 127 18 151/65 (93) 90 High Flow N/C 6.00 08/24/21 00:00 37.2 101 18 113/70 (84) 93 Room Air 08/23/21 20:40 Room Air 08/23/21 19:16 36.9 99 20 140/66 (90) 91 Room Air 08/23/21 15:27 36.6 99 20 134/63 (86) 91 Room Air 08/23/21 12:00 37.0 99 20 142/83 (102) 91 Room Air I & O 08/24/21 07:00 Intake Total 3670 ml Output Total 5100 ml Balance -1430 ml Lab Results Laboratory Tests 08/24/21 04:35: Blood Gas Puncture Site R RADIAL, Blood Gas Patient Temperature 37, Arterial Blood pH 7.46H, Arterial Blood Partial Pressure CO2 39, Arterial Blood Partial Pressure O2 59L, Arterial Blood HCO3 28H, Arterial Blood Total CO2 28.9, Arterial Blood Oxygen Saturation 90L, Arterial Blood Base Excess 4.0H, Abdoulaye Test YES-POS, Blood Gas Ventilator Setting NO, Blood Gas Inspired Oxygen 6L 08/24/21 05:29: White Blood Count 18.1H, Red Blood Count 3.15L, Hemoglobin 9.2#L, Hematocrit 29L , Mean Corpuscular Volume 91, Mean Corpuscular Hemoglobin 29, Mean Corpuscular Hemoglobin Concent 32, Red Cell Distribution Width 13.4, Platelet Count 132, Mean Platelet Volume 9.2, Percent Immature Platelet Fraction 2.0, Sodium Level 136, Potassium Level 3.7, Chloride Level 102, Carbon Dioxide Level 24, Anion Gap 10, Blood Urea Nitrogen 8, Creatinine 0.63, Estimat Glomerular Filtration Rate 93, BUN/Creatinine Ratio 13, Glucose Level 112H, Calcium Level 8.4L, Troponin I < 0.028 Microbiology 08/22/21 MRSA Screen - Final, Complete MRSA not isolated 08/21/21 Urine Culture - Final, Complete Klebsiella pneumoniae Assessment and Plan Assessment post-op Problem List post-op Left Distal Radius Fx Plan Continue PT Dressing change DVT prophylaxis Plan to change to cast on left arm during the upcoming week Final Diagonsis Post Op Level of the visit: Level 3 (global) LOU SANFORD MD Aug 24, 2021 09:40
[2021-08-24] MEDS: ENOXAPARIN 30 MG/0.3 ML (LOVENOX) SYR SC SCH (10:07)
--- NOTE | 2021-08-24 10:13 | Discharge Summary ---
Diagnosis/Chief Complaint Date of Admission Aug 21, 2021 at 20:33 Date of Discharge Discharge Date: Aug 24, 2021 Admission Diagnosis Comminuted intertrochanteric left femoral fracture Primary Care Luciano Olson DO Discharge Diagnosis (1) Essential (primary) hypertension (2) HLD (hyperlipidemia) (3) Hypothyroidism (4) Prophylactic measure (5) Pre-op exam (6) Osteoporosis (7) Hip fracture Status: Acute (8) Wrist fracture Status: Acute Discharge Summary Discharge Physical Exam Allergies: Coded Allergies: No Known Drug Allergies (Unverified , 01/17/19) Vitals & I&Os Vital Signs Date Time Temp Pulse Resp B/P (MAP) Pulse Ox O2 Delivery O2 Flow Rate FiO2 08/24/21 11:39 08/24/21 09:33 94 Nasal Cannula 2.00 08/24/21 08:06 37.9 123 20 General Appearance: No Apparent Distress, WD/WN Respiratory: Lungs Clear, No Respiratory Distress Cardiovascular: Regular Rate, Rhythm, No Murmur Neurologic/Psychiatric: Alert, Oriented x3 Hospital Course Patient is admitted to the hospital after fall due to left hip fracture and left radial fracture. She underwent operative repair of her hip and did well. She did develop a postoperative pneumonia and this was treated with cefepime. She was discharged to inpatient rehab to continue intensive therapies. Labs (last 24 hrs) Microbiology 08/22/21 MRSA Screen - Final, Complete MRSA not isolated 08/21/21 Urine Culture - Final, Complete Klebsiella pneumoniae Patient resulted labs reviewed. Pending Labs Imaging: Reviewed Imaging Report Discussion & Recommendations Discharge Planning: >30 minutes discharge planning Discharge Home Medications: Active Scripts Active Reported Potassium Chloride 10 Meq Tab.er.prt 10 Meq PO DAILY Alendronate Sodium 70 Mg Tablet 70 Mg PO WEEK Pantoprazole Sodium 40 Mg Tablet.dr 40 Mg PO DAILY Vitamin D3 (Cholecalciferol (Vitamin D3)) 125 Mcg Capsule 125 Mcg PO DAILY Xalatan (Latanoprost) 2.5 Ml Drops 1 Drop OU HS Josue Mag Zinc + D3 Tablet (Calcium Carb/D3/Magnesium/Zinc) 1 Each Tablet 1 Tab PO DAILY Timolol Maleate 0.5% (Timolol Maleate) 5 Ml Drops 1 Drop OU BID Furosemide 20 Mg Tablet 20 Mg PO DAILY Amlodipine Besylate 5 Mg Tablet 5 Mg PO DAILY Atenolol 50 Mg Tablet 50 Mg PO DAILY Levothyroxine Sodium 25 Mcg Tablet 25 Mcg PO DAILY Simvastatin 20 Mg Tablet 20 Mg PO HS Instructions to patient/family Please see electronic discharge instructions given to patient. CHAPINCITO RIVERO MD Aug 24, 2021 10:13
[2021-08-24] MEDS ORDERED: CEFEPIME INJECTION 1,000 MG in WATER (STERILE) FOR INJECTION 10 ML IV SCH (12:00)
== END 2021-08-24 11:45 | DRG 480 ==
LOC: EDUNIT# 19:13 → ER 19:15 → 4TH 20:33
PROVIDERS: ADMIT Internal Medicine; ATTEND Internal Medicine
PROC: 0QS706Z Reposition Left Upper Femur with Intramedullary Internal Fixation Device, Open Approach (ICD-10-PCS; principal; 2021-08-22 11:07)
DX: S72.142A Displaced intertrochanteric fracture of left femur, initial encounter for closed fracture (principal); J18.9 Pneumonia, unspecified organism; S52.532A Colles' fracture of left radius, initial encounter for closed fracture; J95.89 Other postprocedural complications and disorders of respiratory system, not elsewhere classified; I10 Essential (primary) hypertension; E78.5 Hyperlipidemia, unspecified; Z20.822 Contact with and (suspected) exposure to COVID-19; M81.0 Age-related osteoporosis without current pathological fracture; E89.0 Postprocedural hypothyroidism; Z85.3 Personal history of malignant neoplasm of breast; W01.0XXA Fall on same level from slipping, tripping and stumbling without subsequent striking against object, initial encounter; Z92.3 Personal history of irradiation
CPT/HCPCS: 29125; 36415; 51702; 70450; 71045; 71275; 72125; 73110; 76000; 80048; 80053; 81000; 82805; 84484; 85025; 85027; 85610; 87077; 87081; 87088; 87186; 87636; 94760; 96374; 96376

== ENCOUNTER 2021-08-24 06:32 | Inpatient (IN) | payer MEDICARE ==
[~2021-08-24] VITALS: Ht 175.3 cm; Wt 92.0 kg
[~2021-08-24 06:32] MED LIST changes: +ACETAMINOPHEN 500 MG TAB (TYLENOL) PO PRN; +ALEN70TA80 PO; +ALPRAZolam 0.25 MG (XANAX) TAB PO PRN; +BISACODYL 10 MG SUPP (DULCOLAX) PR PRN; +CALCIUM CARBONATE 500 MG (TUMS) TAB.CHEW PO PRN; +CHOL500050 PO; +DOCUSATE SODIUM 100 MG (COLACE) CAP PO PRN; +FLEET ENEMA ADULT 1 EA BTL PR PRN; +LACTULOSE SYRUP 10GM/15ML (ENULOSE) 30ML UDC PO PRN; +LATA2.5D19 OU; +LOPERAMIDE 2 MG (IMODIUM) TABLET PO PRN; +MELATONIN 3 MG TABLET PO PRN; +ONDANSETRON 4 MG (ZOFRAN) ORAL DISSOLVE TAB PO PRN; +PANT40TA52 PO; +POTA10TA36 PO; +diphenhydrAMINE 25 MG TAB (BENADRYL) PO PRN; +guaiFENesin/CODEINE (ROBITUSSIN AC) 10ML UDC PO PRN
[2021-08-24] MEDS: DOCUSATE SODIUM 100 MG (COLACE) CAP PO SCH ×2 (09:00→21:36)
[2021-08-24] MEDS: polyethylene glycoL POWDER 17 GM (MIRALAX) PACK PO SCH ×2 (09:00→21:42)
[2021-08-24] MEDS: SENNA W/DOCUSATE (SENOKOT S) TABLET PO SCH ×2 (09:00→21:36)
[2021-08-24 11:24] VITALS: BP 112/56
--- NOTE | 2021-08-24 12:07 | Occupational Therapy Eval ---
OT Evaluation-General/PLF Medical Diagnosis Admission Date August 24, 2021 Medical Diagnosis: L femoral fx, L distal radial fx Onset Date: Aug 21, 2021 Therapy Diagnosis Therapy Diagnosis: decr self care, weakness, decr func mobility, decr act titi Height/Weight Height (Feet): 5 Height (Inches): 9.00 Weight (Pounds): 175 Weight (Ounces): 0.0 Precautions Precautions/Isolations: Standard Precautions Weight Bear Status Weight Bearing Restriction: Weight Bearing/Tolerated (L LE), Non Weight Bearing (L wrist) Referral Physician: Marisabel Referral Reason: Evaluation/Treatment Medical History Pertinent Medical History: HTN, Hypothroidism Additional Medical History Osteoporosis, remote hx breast cancer. HLP Pt reported that she has previously scheduled R carpal tunnel surgery and cataract surgery. Hard of hearing with hearing aid L, cochlear implant R. Pt reports hx with balance issues Current History Fall off curb leading to L femur fx with IM nail on 08/21 and L distal radial fx with cast. Anticipate more permanent cast next week. WBAT L hip, NWB L wrist Reviewed History: Yes Social History Home: Single Level Current Living Status: Spouse ADL-Prior Level of Function SCALE: Activities may be completed with or without assistive devices. 0-Shtdyefovk-ezcfqes completes the activity by him/herself with no assistance from a helper. 5-Set-up or Clean-up Assistance-helper sets up or cleans up; patient completes activity. [place] assists only prior to or following the activity. 4-Supervision or Touching Assistance-helper provides verbal cues and/or touching/steadying and/or contact guard assistance as patient completes activit y. Assistance may be provided throughout the activity or intermittently. 3-Partial/Moderate Assistance-helper does LESS THAN HALF the effort. [place] lifts, holds or supports trunk or limbs, but provides less than half the effort. 2-Substantial/Maximal Assistance-helper does MORE THAN HALF the effort. [place] lifts or holds trunk or limbs and provides more than half the effort. 3-Brxmepkva-yfzhfq does ALL the effort. Patient does none of the effort to complete the activity. Or, the assistance of 2 or more helpers is required for the patient to complete the activity. If activity was not attempted, code reason: 7-Patient Refused. 9-Not Applicable-not attempted and the patient did not perform the activity before the current illness, exacerbation or injury. 10-Not Attempted due to Environmental Limitations-(lack of equipment, weather restraints, etc.). 88-Not Attempted due to Medical Conditions or Safety Concerns. ADL PLOF Comments Pt reported that she was previously independent with basic self care and IADLs. She still drives and is retired from [employer]. Self Care: Independent Functional Cognition: Independent DME/Equipment: Bath Bench, Bedside Commode, Grab Bars, Tub OT Current Status Subjective Pt seen in room, up in bed, agreeable to OT. Pain rated 4/10 L wrist and 0/10 Hip, when she's not moving it Appearance Alert, cooperative. Pt recalled her answers to OT acute eval yesterday Mental Status/Objective Attachments: Stroud Catheter Current Glasses/Contacts: Yes Hearing Aids: Yes (L. Cochlear implant R) Hand Dominance: Right Upper Extremity ROM WFL bilat shoulders. L forearm to above elbow wrapper and not tested. Pt able to move distal fingers L Upper Extremity Coordination decreased on L due to positioning, edema Upper Extremity Sensation Pt reported numbness R thumb, index, middle fingers. Some decr sensation L due to edema Upper Extremity Strength Grossly 3+/5 R. L not assessed. Edema: Slight swelling in fingers L hand but skin creases evident ADL-Treatment ADL-Current Pt reported that she has been able to feed herself with setup. She also indicated that she has brushed her teeth with setup/cleanup. She has not been up out of bed for other ADLs and is still in hospital gown Eating (QC): 5 (setup per pt report) Oral Hygiene (QC): 5 (setup per pt report) Shower/Bathe Self (QC): 1 (based on clinical judgment) Upper Body Dressing (QC): 1 (based on clinical judgment) Lower Body Dressing (QC): 1 (based on clinical judgment) On/Off Footwear (QC): 1 (based on clinical judgment) Toileting Hygiene (QC): 1 (catheter) Other Treatments Pt and family education on rehab process, purpose of OT, anticipated therapy progression. Pt encouraged to continue to move L fiingers to help decrease edema. Pt left up in bed, family present, all needs met. Education OT Patient Education: Purpose of tx/functional activities, Reviewed precautions, Rehab process Teaching Recipient: Patient, Family Teaching Methods: Discussion Response to Teaching: Verbalize Understanding OT Short Term Goals Short Term Goals Time Frame: Aug 31, 2021 Toileting hygiene: 3 Shower/bathe self: 3 Upper body dressin Lower body dressin Putting on/taking off footwear: 3 OT Alf Goals Senior Embedded Software Engineer Goals Time Frame: Sep 14, 2021 Eating (QC): 6 Oral Hygiene (QC): 6 Toileting Hygiene (QC): 5 Shower/Bathe Self (QC): 5 Upper Body Dressing (QC): 6 Lower Body Dressing (QC): 6 On/Off Footwear (QC): 6 Additional Goals: 1-Demonstrate ADL Tasks, 2-Verbalize Understanding, 3- ImproveStrength/Sheyla 1=Demonstrate adherence to instructed precautions during ADL tasks. 2=Patient will verbalize/demonstrate understanding of assistive devices/modifications for ADL. 3=Patient will improve strength/tolerance for activity to enable patient to perform ADL's. OT Education/Plan Problem List/Assessment Assessment: Decreased Activ Tolerance, Decreased UE Strength, Dependent [place] sfers, Impaired Funct Balance, Impaired Self-Care Skills, Restricted Funct UE ROM Pt would benefit from skilled OT to increase her independence in basic self care to allow her to safely return home with family Discharge Recommendations Plan/Recommendations: Continue POC Treatment Plan/Plan of Care Treatment,Training & Education: Yes Patient would benefit from OT for education, treatment and training to promote independence in ADL's, mobility, safety and/or upper extremity function for ADL's. Plan of Care: ADL Retraining, Caregiver Training, Functional Mobility, Group Exercise/Act as Ind (education, exercise, socialization, activity tolerance) Treatment Duration: Sep 14, 2021 Frequency: At least 5 of 7 days/Wk (IRF) Estimated Hrs Per Day: 1.5 hours per day Agreement: Yes Rehab Potential: Good Time/GCodes Start Time: 11:39 Stop Time: 11:57 Total Time Billed (hr/min): 18 Billed Treatment Time visit, 18 minutes evaluation moderate intensity MARIA EUGENIA JARVIS OT Aug 24, 2021 12:07
--- NOTE | 2021-08-24 12:52 | PM&R Post Admission Assessment ---
PM&R Date of Visit: Aug 24, 2021 Time of Visit: 12:00 History of Present Illness Chief complaint: Left hip fracture and left wrist fracture in need of recovery History of present illness: This is a 70-year-old white female clinic patient of Dr. COBB who presents to inpatient rehab following a fall with resultant left femur fracture and left wrist fracture. She had an uncomplicated repair of her hip and she is set for a hard and cast next week for her wrist. She was noted to be tachycardic and hypoxia and was found to have a left lower lobe pneumonia so she was placed on cefepime for facility acquired pneumonia high risk for Pseudomonas. At this current time she is feeling better denies any significant new pain other than the pain from her fractures. Her bowels have not moved and she still has a Stroud catheter. MedSurg H&P: Pt is a 70yoCF with a PMH of HTN, HLD, hypothyroidism, and remote history of breast cancer who presented to the ER due to pain after a fall. She states she was walking out of her orthodox carrying a lot of things and was offered help but declined. Shortly after that she tripped and fell. She denied any LOC or prodomal symptoms and that she simply tripped. EMS was summoned and imaging in the ER revealed both left hip fracture and left wrist fracture. She reports her pain today is much improved and controlled with current regimen. Past Zwsjoqr-Cflwcs-Oglkvt Hx Past Med/Social Hx: Reviewed Nursing Past Med/Soc Hx, Reviewed and Corrections made Patient Social History Marrital Status: Employed/Student: retired Smoking Status: Unknown if Ever Smoked Recent Hopitalizations: No Immunizations Up To Date Pediatric: No Date of Pneumonia Vaccine: Jul 17, 2018 Date of Influenza Vaccine: Jul 17, 2018 Seasonal Allergies Seasonal Allergies: No Past Medical History Surgeries: Breast, Eye Surgery, Orthopedic, Thyroidectomy Currently Using CPAP: No Currently Using BIPAP: No Cardiac: Hypertension Musculoskeletal: Osteoporosis Endocrine: Hypothyroidsim Cancer: Breast Did You Recieve Any Treatments: Yes What Type of Treatment Did You: Radiation, Surgical Intervention History of Blood Disorders: No Self Care: Independent Functional Cognition: Independent Eatin (setup per pt report) Oral Hygiene: 5 (setup per pt report) Shower/Bathe Self: 1 (based on clinical judgment) Upper Body Dressin (based on clinical judgment) Lower Body Dressin (based on clinical judgment) On/Off Footwear: 1 (based on clinical judgment) Toileting Hygiene: 1 (catheter) PM&R Allergy/Meds/Data Review Allergies Coded Allergies: No Known Drug Allergies (Unverified , 01/17/19) Home Medications Scheduled Alendronate Sodium (Alendronate Sodium), 70 MG PO WEEK, (Reported) Amlodipine Besylate (Amlodipine Besylate), 5 MG PO DAILY, (Reported) Atenolol (Atenolol), 50 MG PO DAILY, (Reported) Calcium Carb/D3/Magnesium/Zinc (Josue Mag Zinc + D3 Tablet), 1 TAB PO DAILY, (Reported) Cholecalciferol (Vitamin D3) (Vitamin D3), 125 MCG PO DAILY, (Reported) Furosemide (Furosemide), 20 MG PO DAILY, (Reported) Latanoprost (Xalatan), 1 DROP OU HS, (Reported) Levothyroxine Sodium (Levothyroxine Sodium), 25 MCG PO DAILY, (Reported) Pantoprazole Sodium (Pantoprazole Sodium), 40 MG PO DAILY, (Reported) Potassium Chloride (Potassium Chloride), 10 MEQ PO DAILY, (Reported) Simvastatin (Simvastatin), 20 MG PO HS, (Reported) Timolol Maleate (Timolol Maleate 0.5%), 1 DROP OU BID, (Reported) Discontinued Medications Anastrozole (Anastrozole), 1 MG PO DAILY, (Reported) Discontinued Reason: No Longer Taking Cholecalciferol (Vitamin D3) (Vitamin D3), 400 UNIT PO DAILY, (Reported) Discontinued Reason: Prescription changed Folic Acid (Folic Acid), 0.8 MG PO DAILY, (Reported) Discontinued Reason: No Longer Taking Potassium Chloride (Potassium Chloride), 10 MEQ PO DAILY, (Reported) Discontinued Reason: No Longer Taking Current Medications Current Medications Reviewed Review of Systems Constitutional: see HPI, malaise, weakness EENTM: no symptoms reported Respiratory: cough, dyspnea on exertion Cardiovascular: palpitations Gastrointestinal: no symptoms reported Genitourinary: no symptoms reported Musculoskeletal: joint pain Skin: no symptoms reported Psychiatric/Neurological: No Symptoms Reported All Other Systems Reviewed Negative Unless Noted: Yes Physical Exam Physical Exam Vital Signs Capillary Refill : Height, Weight, BMI Height: 5'9.00" Weight: 175lbs. 0.0oz. 79.374938yg; 29.84 BMI Method:Stated General Appearance: No Apparent Distress, WD/WN, Anxious Eyes: Bilateral Eye Normal Inspection, Bilateral Eye PERRL HEENT: PERRL/EOMI, Normal ENT Inspection, Pharynx Normal Neck: Full Range of Motion, Normal Inspection, Non Tender, Supple, Carotid Bruit Respiratory: Chest Non Tender, Lungs Clear, Normal Breath Sounds, No Accessory Muscle Use, No Respiratory Distress Cardiovascular: Regular Rate, Rhythm, No Edema, No Gallop, No JVD, No Murmur, Normal Peripheral Pulses, Tachycardia Gastrointestinal: Normal Bowel Sounds, No Organomegaly, No Pulsatile Mass, Non Tender, Soft Back: Normal Inspection, No CVA Tenderness, No Vertebral Tenderness Extremity: Normal Capillary Refill, Normal Inspection, Normal Range of Motion (Except left leg and left arm), Non Tender, No Calf Tenderness, No Pedal Edema Neurologic/Psychiatric: Alert, Oriented x3, No Motor/Sensory Deficits, Normal Mood/Affect Skin: Normal Color, Warm/Dry Lymphatic: No Adenopathy PM&R Medical Assessment & Plan REHAB/MEDICAL ASSESSMENT AND PLAN: REHAB IMPAIRMENT GROUP: Left femur and left wrist fracture ETIOLOGIC DIAGNOSIS: Left femur and left wrist fracture The comorbidities that impact the patients function and/or functional outcome by: Both upper and lower extremities on left foot fracture, advanced age, osteoporosis, postop pneumonia REHAB PLAN: The patient is being admitted to our comprehensive inpatient rehabilitation facility and can tolerate the intensity of service consisting of at least: 180 minutes of therapy a day, 5 out of 7 days a week Rehab treatment will consist of: PT and OT will focus on increasing ambulatory skills with the use of assistive device likely will require a platform for left wrist fracture and increase ADLs in order to return back to independent living The patient/family has a good understanding of our discharge process and will benefit from an interdisciplinary inpatient rehabilitation program. The patient has potential to make improvement and is in need of at least two of the following multidisciplinary therapies including but not limited to physical, occupational, speech, and prosthetics and orthotics. Additionally the patient will need services from respiratory, nutritional services, wound care, psy chology, etc. (Customize this to each patient). Given the patients complex condition and risk of further medical complications, rehabilitation services cannot be safely or effectively provided at a lower level of care such as a detention facility. BARRIERS TO DISCHARGE: Severe deficit with left upper and lower extremity fractures ESTIMATED LOS: 14 days DISPOSITION: Home RELEVANT CHANGES SINCE PREADMISSION SCREENING: I have compared the patients medical and functional status at the time of the preadmission screening and there are: No changes PROGNOSIS: Good REHABILITATION GOALS: 1. PT and OT will focus on increasing ambulatory skills with the use of assistive device likely will require a platform for left wrist fracture and increase ADLs in order to return back to independent living All the above goals were reviewed with the patient and he/she is in agreement. By signing this document, I acknowledge that I have personally performed a full physical examination on this patient within 24 hours of admission to this inpatient rehabilitation facility and have determined the patient to be able to tolerate the above course of treatment at an intensive level for a reasonable period of time. I will be completing a detailed individualized Plan of Care for this patient by day #4 of the patients stay based upon the Preadmission Screen, the Post-Admission Evaluation, and the therapy evaluations. Admission Dx/Comorbidities: (1) Hip fracture Status: Acute ICD Codes: S72.009A - Fracture of unspecified part of neck of unspecified femur, initial encounter for closed fracture (2) Wrist fracture Status: Acute ICD Codes: S62.109A - Fracture of unspecified carpal bone, unspecified wrist, initial encounter for closed fracture (3) HLD (hyperlipidemia) ICD Codes: E78.5 - Hyperlipidemia, unspecified (4) Essential (primary) hypertension ICD Codes: I10 - Essential (primary) hypertension (5) Hypothyroidism ICD Codes: E03.9 - Hypothyroidism, unspecified (6) Osteoporosis ICD Codes: M81.0 - Age-related osteoporosis without current pathological fracture Assessment/Plan Assessment and Plan Assess & Plan/Chief Complaint Assessment: Left hip fracture status post repair Left wrist fracture Postop pneumonia Tachycardia due to pneumonia Hypoxia due to pneumonia Hypothyroidism eczema hypertension Hyperlipidemia next number history of breast cancer DVT prophylaxis with Lovenox Plan: IV antibiotics Incentive spirometer Monitor closely Check iron level High risk for decompensation JENIFFER VAZ DO Aug 24, 2021 12:52
[2021-08-24] MEDS ORDERED: morphine INJ 4 MG/ML 1 ML (VIAL/SYRINGE) IVP PRN (13:00)
[2021-08-24] MEDS: LACTATED RINGERS 1,000 ML IV SCH ×2 (13:00→19:57)
[2021-08-24] MEDS: CEFEPIME INJECTION 1,000 MG in WATER (STERILE) FOR INJECTION 10 ML IV SCH ×3 (13:00→23:48)
[2021-08-24] MEDS ORDERED: hydrALAZINE (APESOLINE) 20 MG/ML VIAL IV PRN (13:00)
[2021-08-24] MEDS ORDERED: CATHETER FLUSH 10 ML SYR IV PRN (13:00)
[2021-08-24] MEDS ORDERED: HYDROcodone/APAP 5 MG/325 MG (LORTAB) TAB PO PRN (13:00)
[2021-08-24] MEDS ORDERED: HOLD METFORMIN - RECEIVED CONTRAST 20 ML VIAL IV SCH (13:00)
[2021-08-24] MEDS ORDERED: ONDANSETRON 4 MG/2 ML (SDV) Z0FRAN IVP PRN (13:00)
[2021-08-24] MEDS ORDERED: ACETAMINOPHEN 325 MG TABLET PO PRN (13:30)
--- NOTE | 2021-08-24 13:57 | Physical Therapy Evaluation ---
PT Evaluation-General Medical Diagnosis Admission Date Aug 24, 2021 at 11:41 Medical Diagnosis: L femoral fx, L distal radial fx Onset Date: Aug 21, 2021 Therapy Diagnosis Therapy Diagnosis: impaired transfers, bed mobility, gait Height/Weight Height (Feet): 5 Height (Inches): 9.00 Weight (Pounds): 175 Weight (Ounces): 0.0 Precautions Precautions/Isolations: Standard Precautions Weight Bear Status Right Lower Extremity: Right Full Weight Bearing Left Lower Extremity: Left Weight Bearing/Tolerated No weight through left wrist Referral Physician: Marisabel Reason for Referral: Evaluation/Treatment Medical History Pertinent Medical History: HTN, Hypothroidism Reviewed History: Yes Social History Home: Single Level Current Living Status: Spouse Prior Prior Level of Function SCALE: Activities may be completed with or without assistive devices. 7-Jevpbgxkel-iiwoisb completes the activity by him/herself with no assistance from a helper. 5-Set-up or Clean-up Assistance-helper sets up or cleans up; patient completes activity. [place] assists only prior to or following the activity. 4-Supervision or Touching Assistance-helper provides verbal cues and/or touching/steadying and/or contact guard assistance as patient completes activity. Assistance may be provided throughout the activity or intermittently. 3-Partial/Moderate Assistance-helper does LESS THAN HALF the effort. [place] lifts, holds or supports trunk or limbs, but provides less than half the effort. 2-Substantial/Maximal Assistance-helper does MORE THAN HALF the effort. [place] lifts or holds trunk or limbs and provides more than half the effort. 4-Rspjyryew-qedrzw does ALL the effort. Patient does none of the effort to complete the activity. Or, the assistance of 2 or more helpers is required for the patient to complete the activity. If activity was not attempted, code reason: 7-Patient Refused. 9-Not Applicable-not attempted and the patient did not perform the activity before the current illness, exacerbation or injury. 10-Not Attempted due to Environmental Limitations-(lack of equipment, weather restraints, etc.). 88-Not Attempted due to Medical Conditions or Safety Concerns. Bed Mobility: 6 Transfers (B,C,W/C): 6 Gait: 6 Stairs: 6 Wheelchair Mobility: 6 Indoor Mobility (Ambulation): Independent Stairs: Independent PT Evaluation-Current Subjective Pt is willing to attempt standing and ambulation but reports she is apprehensive and doubtful that she can do it. Objective Patient Orientation: Normal For Age ROM/Strength ROM Lower Extremities left LE: hip flex 70deg, hip abd 10deg, knee WFL, ankle WFL Strength Lower Extremities right LE gross 4/5, (L) LE 2/5 Sensory Vision: Wears Glasses Hearing: Functional Hand Dominance: Right Sensation Right Lower Extremit: Intact Sensation Left Lower Extremity: Intact Transfers Roll Left & Right (QC): 1 Sit to Lying (QC): 1 Lying to Sitting/Side of Bed(Q: 1 Sit to Stand (QC): 1 Chair/Rfs-hs-Wjkhg Xfer(QC): 1 Toilet Transfer (QC): 1 Car Transfer (QC): 88 Gait Does the Patient Walk?: Yes Mode of Locomotion: Walk Anticipated Mode of Locomotion: Walk Walk 10 feet (QC): 88 Walk 50 ft with 2 Turns(QC): 88 Walk 150 ft (QC): 88 Walking 10ft/uneven surface-QC: 88 Distance: 1-2 steps Gait Assistive Device: Walker Platform Comments/Gait Description Pt not able to shift wt completely off of the affected (L) limb in order to advance through swing phase. Wheelchair Training Does the Pt Use a Wheelchair?: No Wheel 50 ft with 2 turns (QC): 1 Wheel 150 ft (QC): 88 Type of Wheelchair: Manual Stairs 1 Step (curb) (QC): 88 4 Steps (QC): 88 12 Steps (QC): 88 Balance Sitting Static: Fair Sitting Dynamic: Fair Standing Static: Poor Standing Dynamic: Poor Picking up an Object (QC): 88 Assessment/Needs Rehab Potential: Fair Post Rehab Potential-Barriers: motivation and drive to improve PT Short Term Goals Short Term Goals Time Frame: Aug 31, 2021 Roll Left & Right: 3 Sit to lyin Lying to sitting on side of be: 3 Sit to stand: 3 Chair/xpu-xd-bsudk transfer: 3 Walk 10 feet: 3 Walk 50 feet with two turns: 3 1 step (curb): 2 PT Nursing Home Goals Nursing Home Goals PT Nursing Home Goals Time Frame: Sep 07, 2021 Roll Left & Right (QC): 6 Sit to Lying (QC): 6 Lying-Sitting on Side/Bed(QC): 6 Sit to Stand (QC): 6 Chair/Gmr-qp-Omniv Xfer(QC): 6 Toilet Transfer (QC): 5 Car Transfer (QC): 5 Does the Patient Walk: Yes Walk 10 feet (QC): 6 Walk 50ft with 2 Turns (QC): 6 Walk 150 ft (QC): 4 Walking 10ft on Uneven Surface: 4 1 Step (curb) (QC): 4 4 Steps (QC): 4 12 Steps (QC): 4 Picking up an Object (QC): 6 Does the Pt use WC or Scooter?: Yes Wheel 50 feet with 2 turns (QC: 6 Type: Manual Wheel 150 feet: 6 Type: Manual PT Plan Problem List Problem List: Activity Tolerance, Functional Strength, Balance, Gait, Transfer, Bed Mobility, ROM Treatment/Plan Treatment Plan: Continue Plan of Care Treatment Duration: Sep 07, 2021 Frequency: 11 times per week Estimated Hrs Per Day: 1.5 hours per day Patient and/or Family Agrees t: Yes Safety Risks/Education Patient Education: Gait Training, Transfer Techniques Teaching Recipient: Patient, Family Discharge Recommendations Therapy Discharge Recommendati: Home & Family Time/GCodes Time In: 1230 Time Out: 1300 Total Billed Treatment Time: 30 Total Billed Treatment visit, evaluation moderate complexity 30 min BENJA PEDROZA PT Aug 24, 2021 13:57
[2021-08-24] MEDS ORDERED: FLU QUAD HIGH DOSE 240 MCG/0.7 ML 2021-22 (FLUZONE) IM ONE (16:15)
[2021-08-24 19:53] VITALS: BP 135/60
[2021-08-24] MEDS ORDERED: TIMOLOL MALEATE 0.5% 5 ML (TIMOPTIC) BTL OU SCH (21:00)
[2021-08-24] MEDS ORDERED: LATANOPROST 0.005% (XALATAN) OPHTH SOLN 2.5 ML OU SCH (21:00)
[2021-08-24] MEDS ORDERED: SIMvastatin 20 MG (ZOCOR) TAB PO SCH (21:00)
[2021-08-24] MEDS ORDERED: ENOXAPARIN 30 MG/0.3 ML (LOVENOX) SYR SC SCH (22:00)
[2021-08-24 23:02] VITALS: BP 124/58
[2021-08-25] MEDS ORDERED: APIXABAN 5 MG (ELIQUIS) TABLET PO SCH
[2021-08-25] MEDS ORDERED: dilTIAZem DRIP PRE-MIX 125 ML IV SCH
[2021-08-25 00:15] VITALS: BP 124/58
--- NOTE | 2021-08-25 06:16 | Discharge Summary ---
Diagnosis/Chief Complaint Date of Admission Aug 24, 2021 at 11:41 Date of Discharge Aug 25, 2021 at 00:10 Discharge Diagnosis Assessment: New onset atrial fibrillation with rapid ventricular response requiring ICU transfer 12 hours after admission Left hip fracture status post repair Left wrist fracture Postop pneumonia Tachycardia due to pneumonia Hypoxia due to pneumonia Hypothyroidism eczema hypertension Hyperlipidemia next number history of breast cancer DVT prophylaxis with Lovenox Discharge Summary Discharge Physical Examination Allergies: Coded Allergies: No Known Drug Allergies (Unverified , 01/17/19) Vitals & I&Os Vital Signs Date Time Temp Pulse Resp B/P (MAP) Pulse Ox O2 Delivery O2 Flow Rate FiO2 08/25/21 00:15 37.2 155 18 124/58 95 Nasal Cannula 3.00 Hospital Course Was the Problem List Reviewed?: Yes Patient had a brief hospital course for 12 hours after she was admitted to inpatient rehab for left hip fracture and left wrist fracture with debility. She had been maintained on gentle IV fluids and IV antibiotics of cefepime to cover for pneumonia diagnosed the day of admit but she remained stable and vitals remained stable but I was notified of new onset atrial fibrillation with rapid ventricular response of 150 requiring ICU transfer and since she had been in inpatient rehab less than 3 days the account was closed. Labs (last 24 hrs) Laboratory Tests 08/24/21 05:29: Pending Labs Laboratory Tests 08/24/21 05:29: Iron Level [Pending] Discharge Home Medications: Active Scripts Active Reported Potassium Chloride 10 Meq Tab.er.prt 10 Meq PO DAILY Alendronate Sodium 70 Mg Tablet 70 Mg PO WEEK Pantoprazole Sodium 40 Mg Tablet.dr 40 Mg PO DAILY Vitamin D3 (Cholecalciferol (Vitamin D3)) 125 Mcg Capsule 125 Mcg PO DAILY Xalatan (Latanoprost) 2.5 Ml Drops 1 Drop OU HS Josue Mag Zinc + D3 Tablet (Calcium Carb/D3/Magnesium/Zinc) 1 Each Tablet 1 Tab PO DAILY Timolol Maleate 0.5% (Timolol Maleate) 5 Ml Drops 1 Drop OU BID Furosemide 20 Mg Tablet 20 Mg PO DAILY Amlodipine Besylate 5 Mg Tablet 5 Mg PO DAILY Atenolol 50 Mg Tablet 50 Mg PO DAILY Levothyroxine Sodium 25 Mcg Tablet 25 Mcg PO DAILY Simvastatin 20 Mg Tablet 20 Mg PO HS Instructions to patient/family Please see electronic discharge instructions given to patient. Diagnosis/Problems Diagnosis/Problems (1) Hip fracture Status: Acute (2) Wrist fracture Status: Acute (3) HLD (hyperlipidemia) (4) Essential (primary) hypertension (5) Hypothyroidism (6) Osteoporosis JENIFFER VAZ DO Aug 25, 2021 06:16
[2021-08-25] MEDS ORDERED: LEVOTHYROXINE 25 MCG (LEVOTHROID) TAB PO SCH (06:30)
[2021-08-25] MEDS ORDERED: CALCIUM CARB PO SCH (09:00)
[2021-08-25] MEDS ORDERED: [UNRECOGNIZED DRUG - OTHER] PO SCH (09:00)
[2021-08-25] MEDS ORDERED: D3 PO SCH (09:00)
[2021-08-25] MEDS ORDERED: DOCUSATE SODIUM 100 MG (COLACE) CAP PO SCH (09:00)
[2021-08-25] MEDS ORDERED: MAGNESIUM PO SCH (09:00)
[2021-08-25] MEDS ORDERED: KCL 10 MEQ TAB (MICRO K) PO SCH (09:00)
[2021-08-25] MEDS ORDERED: ZINC PO SCH (09:00)
[2021-08-25] MEDS ORDERED: PANTOPRAZOLE 40 MG (PROTONIX) TAB PO SCH (09:00)
[2021-08-25] MEDS ORDERED: VITAMIN D3 125 MCG (5,000 UNITS) CAPSULE PO SCH (09:00)
--- NOTE | 2021-08-26 15:07 | Therapy Team Discharge Summary ---
Therapy Discharge Summary Discharge Recommendations Date of Discharge Aug 25, 2021 at 00:10 Physical Therapy Patient came to rehab with L femoral fx, L distal radial fx. Upon evaluation patient was dependent for bed mobility and transfers, could only take a couple of steps using a rolling walker, and dependent for WC mobility. Patient had some medical complications not long after being admitted and went to ICU. Patient will be discharged from PT at this time. Occupational Therapy Decreased Activ Tolerance, Decreased UE Strength, Dependent Transfers, Impaired Funct Balance, Impaired Self-Care Skills, Restricted Funct UE ROM PT Clinical Rehabilitation Specialist Goals Clinical Rehabilitation Specialist Goals PT Clinical Rehabilitation Specialist Goals Time Frame: Sep 07, 2021 Roll Left to Right (QC): 6 Sit to Lying (QC): 6 Lying-Sitting on Side/Bed(QC): 6 Sit to Stand (QC): 6 Chair/Yiu-ot-Pxtin Xfer(QC): 6 Car Transfer (QC): 5 Does the Patient Walk: Yes Walk 10 feet (QC): 6 Walk 10ft-Uneven Surface(QC): 4 Walk 50ft with 2 Turns (QC): 6 Walk 150 ft (QC): 4 Does the Pt use WC or Scooter?: Yes Wheel 50 feet with 2 turns (QC: 6 1 Step (curb) (QC): 4 4 Steps (QC): 4 12 Steps (QC): 4 Picking up an Object (QC): 6 OT [facility] Goals Clinical Rehabilitation Specialist Goals Time Frame: Sep 14, 2021 Eating (QC): 6 Oral Hygiene (QC): 6 Shower/Bathe Self (QC): 5 Upper Body Dressing (QC): 6 Lower Body Dressing (QC): 6 On/Off Footwear (QC): 6 Toileting Hygiene (QC): 5 Toilet/Commode Transfer (QC): 5 Additional Goals: 1-Demonstrate ADL Tasks, 2-Verbalize Understanding, 3- ImproveStrength/She[place] 1=Demonstrate adherence to instructed precautions during ADL tasks. 2=Patient will verbalize/demonstrate understanding of assistive devices/modifications for ADL. 3=Patient will improve strength/tolerance for activity to enable patient to perform ADL's. LOLLY BOND PT Aug 26, 2021 15:07
--- NOTE | 2021-08-28 13:53 | Therapy Team Discharge Summary ---
Therapy Discharge Summary Discharge Recommendations Date of Discharge Aug 25, 2021 at 00:10 Occupational Therapy Pt admitted to ARU with L femoral fx and L distal radius fx. At OF, pt was independent with all ADLs/IADLS and was still driving. Upon initial evaluation, pt required set up assistance with eating and oral care, and total assistance with showering, upper/lower body dressing, footwear and toileting. Pt did not receive any follow up treatments, thus did not attain any LTGs. Pt discharged from unit due to increased medical complexity. D/C from OT. Decreased Activ Tolerance, Decreased UE Strength, Dependent Transfers, Impaired Funct Balance, Impaired Self-Care Skills, Restricted Funct UE ROM PT Rn Critical Care Goals Nursing Home Goals PT Nursing Home Goals Time Frame: Sep 07, 2021 Roll Left to Right (QC): 6 Sit to Lying (QC): 6 Lying-Sitting on Side/Bed(QC): 6 Sit to Stand (QC): 6 Chair/Ris-wg-Iapjd Xfer(QC): 6 Car Transfer (QC): 5 Does the Patient Walk: Yes Walk 10 feet (QC): 6 Walk 10ft-Uneven Surface(QC): 4 Walk 50ft with 2 Turns (QC): 6 Walk 150 ft (QC): 4 Does the Pt use WC or Scooter?: Yes Wheel 50 feet with 2 turns (QC: 6 1 Step (curb) (QC): 4 4 Steps (QC): 4 12 Steps (QC): 4 Picking up an Object (QC): 6 OT Nursing Home Goals Rn Critical Care Goals Time Frame: Sep 14, 2021 Eating (QC): 6 Oral Hygiene (QC): 6 Shower/Bathe Self (QC): 5 Upper Body Dressing (QC): 6 Lower Body Dressing (QC): 6 On/Off Footwear (QC): 6 Toileting Hygiene (QC): 5 Toilet/Commode Transfer (QC): 5 Additional Goals: 1-Demonstrate ADL Tasks, 2-Verbalize Understanding, 3-ImproveStrength/[place] 1=Demonstrate adherence to instructed precautions during ADL tasks. 2=Patient will verbalize/demonstrate understanding of assistive devices/modifications for ADL. 3=Patient will improve strength/tolerance for activity to enable patient to perform ADL's. JALEN AGUILLON OT Aug 28, 2021 13:53
== END 2021-08-25 00:10 | disposition short-term general hospital (02) | DRG 559 ==
PROVIDERS: ADMIT Internal Medicine; ATTEND Internal Medicine
DX: S72.92XD Unspecified fracture of left femur, subsequent encounter for closed fracture with routine healing (principal); J18.9 Pneumonia, unspecified organism; S62.102D Fracture of unspecified carpal bone, left wrist, subsequent encounter for fracture with routine healing; I48.91 Unspecified atrial fibrillation; R09.02 Hypoxemia; I10 Essential (primary) hypertension; E78.5 Hyperlipidemia, unspecified; E03.9 Hypothyroidism, unspecified; M81.0 Age-related osteoporosis without current pathological fracture; Z85.3 Personal history of malignant neoplasm of breast; W01.0XXD Fall on same level from slipping, tripping and stumbling without subsequent striking against object, subsequent encounter; Y92.22 Religious institution as the place of occurrence of the external cause
CPT/HCPCS: 36415; 83540; 87081

== ENCOUNTER 2021-08-25 00:13 | Inpatient (IN) | payer MEDICARE ==
[~2021-08-25] VITALS: Ht 175.3 cm; Wt 104.4 kg
[~2021-08-25 00:13] MED LIST changes: -ACETAMINOPHEN 500 MG TAB (TYLENOL) PO PRN; -ALPRAZolam 0.25 MG (XANAX) TAB PO PRN; -BISACODYL 10 MG SUPP (DULCOLAX) PR PRN; -CALCIUM CARBONATE 500 MG (TUMS) TAB.CHEW PO PRN; -DOCUSATE SODIUM 100 MG (COLACE) CAP PO PRN; -FLEET ENEMA ADULT 1 EA BTL PR PRN; -LACTULOSE SYRUP 10GM/15ML (ENULOSE) 30ML UDC PO PRN; -LOPERAMIDE 2 MG (IMODIUM) TABLET PO PRN; -MELATONIN 3 MG TABLET PO PRN; -ONDANSETRON 4 MG (ZOFRAN) ORAL DISSOLVE TAB PO PRN; -diphenhydrAMINE 25 MG TAB (BENADRYL) PO PRN; -guaiFENesin/CODEINE (ROBITUSSIN AC) 10ML UDC PO PRN
[2021-08-25] MEDS: dilTIAZem DRIP PRE-MIX 125 ML IV SCH ×2 (01:00→08:34)
[2021-08-25] MEDS ORDERED: ONDANSETRON 4 MG/2 ML (SDV) Z0FRAN IVP PRN (03:15)
[2021-08-25] MEDS ORDERED: FLEET ENEMA ADULT 1 EA BTL PR PRN (03:15)
[2021-08-25] MEDS ORDERED: MELATONIN 3 MG TABLET PO PRN (03:15)
[2021-08-25] MEDS ORDERED: ONDANSETRON 4 MG (ZOFRAN) ORAL DISSOLVE TAB PO PRN (03:15)
[2021-08-25] MEDS ORDERED: HOLD METFORMIN - RECEIVED CONTRAST 20 ML VIAL IV SCH (03:15)
[2021-08-25] MEDS ORDERED: ALPRAZolam 0.25 MG (XANAX) TAB PO PRN (03:15)
[2021-08-25] MEDS ORDERED: LACTULOSE SYRUP 10GM/15ML (ENULOSE) 30ML UDC PO PRN (03:15)
[2021-08-25] MEDS ORDERED: LOPERAMIDE 2 MG (IMODIUM) TABLET PO PRN (03:15)
[2021-08-25] MEDS ORDERED: CATHETER FLUSH 10 ML SYR IV PRN (03:15)
[2021-08-25] MEDS ORDERED: DOCUSATE SODIUM 100 MG (COLACE) CAP PO PRN (03:15)
[2021-08-25] MEDS ORDERED: diphenhydrAMINE 25 MG TAB (BENADRYL) PO PRN (03:15)
[2021-08-25] MEDS ORDERED: morphine INJ 4 MG/ML 1 ML (VIAL/SYRINGE) IVP PRN (03:15)
[2021-08-25] MEDS ORDERED: CALCIUM CARBONATE 500 MG (TUMS) TAB.CHEW PO PRN (03:15)
[2021-08-25] MEDS ORDERED: guaiFENesin/CODEINE (ROBITUSSIN AC) 10ML UDC PO PRN (03:15)
[2021-08-25] MEDS ORDERED: hydrALAZINE (APESOLINE) 20 MG/ML VIAL IV PRN (03:15)
[2021-08-25] MEDS ORDERED: BISACODYL 10 MG SUPP (DULCOLAX) PR PRN (03:15)
--- NOTE | 2021-08-25 03:27 | Tele-ICU Consult ---
History of Present Illness History of Present Illness Date Seen by Provider: Aug 25, 2021 Time Seen by Provider: 03:25 History of Present Illness 70 F fell, admitted with left hip and humerus Fx, repaired, was on IP rehab and developed a fib with RVR rates up to 140, transferred to MICU, started on IV Cardizem @ 15 PMH HTN, HLD, not DM, hypthyroidism, s/p partial thyroidectomy Allergies and Home Medications Allergies Coded Allergies: No Known Drug Allergies (Unverified , 01/17/19) Home Medications Alendronate Sodium 70 Mg Tablet, 70 MG PO WEEK, (Reported) Amlodipine Besylate 5 Mg Tablet, 5 MG PO DAILY, (Reported) Atenolol 50 Mg Tablet, 50 MG PO DAILY, (Reported) Calcium Carb/D3/Magnesium/Zinc 1 Each Tablet, 1 TAB PO DAILY, (Reported) Cholecalciferol (Vitamin D3) 125 Mcg Capsule, 125 MCG PO DAILY, (Reported) Furosemide 20 Mg Tablet, 20 MG PO DAILY, (Reported) Latanoprost 2.5 Ml Drops, 1 DROP OU HS, (Reported) Levothyroxine Sodium 25 Mcg Tablet, 25 MCG PO DAILY, (Reported) Pantoprazole Sodium 40 Mg Tablet.dr, 40 MG PO DAILY, (Reported) Potassium Chloride 10 Meq Tab.er.prt, 10 MEQ PO DAILY, (Reported) Simvastatin 20 Mg Tablet, 20 MG PO HS, (Reported) Timolol Maleate 5 Ml Drops, 1 DROP OU BID, (Reported) Past Medical/Social/Family Hx Immunizations Up To Date Influenza Vaccine Up-to-Date: No; Not Current First/Initial COVID19 Vaccinat: DECEMBER 2020 Second COVID19 Vaccination Michael: JANUARY 2021 Tetanus Booster (TDap): More Than 5 Years Hepatitis A: No Hepatitis B: No TB Skin Test: None Date of Pneumonia Vaccine: Jul 17, 2018 Current Status Primary Language: Kenyan Review of Systems Constitutional: see HPI EENTM: see HPI Respiratory: see HPI Cardiovascular: see HPI Gastrointestinal: see HPI Genitourinary: see HPI Musculoskeletal: see HPI Skin: see HPI Psychiatric/Neurological: See HPI Sepsis Event Evaluation Height, Weight, BMI Height: 5'9.00" Weight: 175lbs. 0.0oz. 79.432999di; 29.93 BMI Method:Stated Exam Exam Patient acknowledged, consented, and participated in this virtual visit which was conducted using real time audio/video Vital Signs Date Time Temp Pulse Resp B/P (MAP) Pulse Ox O2 Delivery O2 Flow Rate FiO2 08/25/21 01:00 142 08/25/21 00:10 36.8 143 18 114/73 97 Nasal Cannula 3.00 Height & Weight Height: 5'9.00" Weight: 175lbs. 0.0oz. 79.157006ug; 29.93 BMI Method:Stated General Appearance: No Apparent Distress Respiratory: Lungs Clear Cardiovascular: Irregularly Irregular Gastrointestinal: normal bowel sounds, non tender Extremity: Pedal Edema (trace) Neurologic/Psychiatric: Alert, Oriented x3 Assessment/Plan Assessment/Plan a fib with RVR, continue on IV cardizem for rate control Cali Huber MD Critical Care: Critically Ill Patient Time spent with patient (mins): 15 ROM HUBER MD Aug 25, 2021 03:27
[2021-08-25] MEDS: LACTATED RINGERS 1,000 ML IV SCH ×3 (03:29→22:01)
[2021-08-25] MEDS: APIXABAN 5 MG (ELIQUIS) TABLET PO SCH ×2 (03:29→20:28)
[2021-08-25 05:16] LABS: BASOPHILS % (AUTO) 0 % (0-10); EOSINOPHILS # (AUTO) 0.1 10^3/uL (0.0-0.3); EOSINOPHILS % (AUTO) 0 % (0-10); HEMATOCRIT 26 % (35-52); HEMOGLOBIN 8.4 g/dL (11.5-16.0); LYMPHOCYTES # (AUTO) 1.7 10^3/uL (1.0-4.0); LYMPHOCYTES % (AUTO) 10 % (12-44); MEAN CORPUSCULAR HEMOGLOBIN 30 pg (25-34); MEAN CORPUSCULAR HGB CONC 33 g/dL (32-36); MEAN CORPUSCULAR VOLUME 91 fL (80-99); MEAN PLATELET VOLUME 9.7 fL (9.0-12.2); MONOCYTES # (AUTO) 1.3 10^3/uL (0.0-1.0); MONOCYTES % (AUTO) 7 % (0-12); NEUTROPHILS % (AUTO) 82 % (42-75); PLATELET COUNT 132 10^3/uL (130-400); WHITE BLOOD COUNT 17.2 10^3/uL (4.3-11.0)
[2021-08-25 05:40] LABS: ALBUMIN 2.7 GM/DL (3.2-4.5); POTASSIUM 4.2 MMOL/L (3.6-5.0)
[2021-08-25 05:42] LABS: CALCIUM 8.3 MG/DL (8.5-10.1)
[2021-08-25 05:45] LABS: BILIRUBIN,TOTAL 0.4 MG/DL (0.1-1.0)
[2021-08-25 05:46] LABS: CREATININE SERUM 0.69 MG/DL (0.60-1.30); PHOSPHORUS 2.3 MG/DL (2.3-4.7)
[2021-08-25 05:49] LABS: MAGNESIUM 1.9 MG/DL (1.6-2.4)
[2021-08-25] MEDS: KCL 20 MEQ TAB (K-DUR) PO SCH (06:01)
[2021-08-25] MEDS: MAGNESIUM 1 GM/100 ML IVPB 100 ML IV SCH (06:01)
[2021-08-25] MEDS: POTASSIUM CL 10MEQ/50ML IVPB 50 ML IV SCH (06:01)
[2021-08-25 06:18] LABS: BAND NEUTROPHILS 3 %; LYMPHOCYTES % (MANUAL) 13 %; MONOCYTES % (MANUAL) 7 %; NEUTROPHILS % (MANUAL) 77 %
[2021-08-25] MEDS: CEFEPIME INJECTION 1,000 MG in WATER (STERILE) FOR INJECTION 10 ML IV SCH ×4 (06:18→23:28)
[2021-08-25] MEDS: LEVOTHYROXINE 25 MCG (LEVOTHROID) TAB PO SCH (06:18)
[2021-08-25] MEDS: polyethylene glycoL POWDER 17 GM (MIRALAX) PACK PO SCH ×2 (08:17→20:29)
[2021-08-25] MEDS: KCL 10 MEQ TAB (MICRO K) PO SCH (08:18)
[2021-08-25] MEDS: VITAMIN D3 125 MCG (5,000 UNITS) CAPSULE PO SCH (08:18)
[2021-08-25] MEDS: PANTOPRAZOLE 40 MG (PROTONIX) TAB PO SCH (08:18)
[2021-08-25] MEDS: CALCIUM CARB + VIT D 600 MG (CALCARB + D) TAB PO SCH (08:18)
[2021-08-25] MEDS: SENNA W/DOCUSATE (SENOKOT S) TABLET PO SCH ×2 (08:18→20:28)
[2021-08-25] MEDS: TIMOLOL MALEATE 0.5% 5 ML (TIMOPTIC) BTL OU SCH ×3 (08:18→20:29)
[2021-08-25] MEDS: ACETAMINOPHEN 325 MG TABLET PO PRN (09:14)
--- NOTE | 2021-08-25 09:25 | Tele-ICU Progress Note ---
Progress Note video rounds completed 70 y/o female s/p ORIF hip fx develope a fib RVR now on diltiazem drip PE: eating breakfast apears comfortable Pulse 86, a fib cardiology on consult , has not seen yet Focused Exam Height, Weight, BMI Height: 5'9.00" Weight: 175lbs. 0.0oz. 79.968155lc; 32.67 BMI Method:Stated Laboratory Tests 08/25/21 04:55 ROM SHIN MD Aug 25, 2021 09:25
[2021-08-25] MEDS: HYDROcodone/APAP 5 MG/325 MG (LORTAB) TAB PO PRN ×2 (10:42→15:08)
[2021-08-25] MEDS ORDERED: NS IV 500 ML 500 ML ONE (10:51)
[2021-08-25] MEDS ORDERED: NS IV 500 ML 500 ML IV ONE ×2 (11:00→12:45)
[2021-08-25] MEDS ORDERED: NS (IVPB) 500 ML IV ONE ×2 (11:00→12:45)
--- NOTE | 2021-08-25 11:22 | History & Physical-Hospitalist ---
History of Present Illness HPI/Chief Complaint Patient is 70-year-old female who was admitted to the ICU due to atrial fibrillation with rapid ventricular rate from inpatient rehab. She was just admitted here due to left hip fracture and underwent operative repair. She was discharged yesterday to inpatient rehab but overnight developed new onset atrial fibrillation and was transferred to the ICU on a Cardizem drip. This morning she reports she is feeling better. She has no palpitations or chest pain. Her heart rate is in the 70s when I am in the room but she remains in A. fib. Source: patient Date Seen 08/25/21 Time Seen by a Provider: 11:16 Attending Physician Madhavi Nelson MD PCP Luciano Olson DO Referring Physician Date of Admission Aug 25, 2021 at 00:13 Home Medications & Allergies Home Medications Reviewed patient Home Medication Reconciliation performed by pharmacy medication reconciliations certified veterinary technician and/or nursing. Patients Allergies have been reviewed. Allergies Allergies Coded Allergies No Known Drug Allergies (Unverified01/17/19) Past Spieaci-Pwqmvi-Adzwig Hx Patient Social History Marrital Status: Employed/Student: retired Tobacco Use?: No Smoking Status: Never a Smoker Substance use?: No Alcohol Use?: No Pt feels they are or have been: No Immunizations Up To Date Date of Influenza Vaccine: Jul 17, 2018 First/Initial COVID19 Vaccinat: DECEMBER 2020 Second COVID19 Vaccination Michael: JANUARY 2021 Tetanus Booster (TDap): More Than 5 Years Hepatitis A: No Hepatitis B: No PED Vaccines UTD: No Date of Pneumonia Vaccine: Jul 17, 2018 Seasonal Allergies Seasonal Allergies: No Current Status status: No Communicates: Verbally Primary Language: Lebanese Preferred Spoken Language: Lebanese Is interpretation needed?: No Sensory deficits: Hearing impairment Past Medical History Surgeries: Breast, Eye Surgery, Orthopedic, Thyroidectomy Currently Using CPAP: No Currently Using BIPAP: No Hypertension Osteoporosis Hypothyroidsim Breast Did You Recieve Any Treatments: Yes What Type of Treatment Did You: Radiation, Surgical Intervention Blood Disorders: No Family Medical History Reviewed Nursing Family Hx No Pertinent Family Hx Review of Systems Constitutional: No chills, No fever EENTM: no symptoms reported Respiratory: No cough, No short of breath Gastrointestinal: no symptoms reported Genitourinary: no symptoms reported Musculoskeletal: no symptoms reported Skin: no symptoms reported Psychiatric/Neurological: No Symptoms Reported Physical Exam Physical Exam Vital Signs Vital Signs - First Documented 08/25/21 08/25/21 00:07 00:10 Temp 36.8 Pulse 143 Resp 18 B/P (MAP) 114/73 Pulse Ox 97 O2 Delivery Nasal Cannula O2 Flow Rate 3.00 Capillary Refill : Height, Weight, BMI Height: 5'9.00" Weight: 175lbs. 0.0oz. 79.400658lt; 32.67 BMI Method:Stated General Appearance: No Apparent Distress, WD/WN HEENT: PERRL/EOMI, Moist Mucous Membranes Neck: Normal Inspection, Supple Respiratory: Lungs Clear, No Respiratory Distress Cardiovascular: No JVD, No Murmur, Irregularly Irregular Gastrointestinal: Normal Bowel Sounds, Non Tender, Soft Extremity: No Calf Tenderness, No Pedal Edema Neurologic/Psychiatric: Alert, Oriented x3, Normal Mood/Affect Skin: Normal Color, Warm/Dry Results Results/Procedures Labs Laboratory Tests 08/25/21 04:55 Patient resulted labs reviewed. Assessment/Plan Admission Diagnosis a-fib with RVR Admission Status: Inpatient Order (span 2 midnights) Reason for Inpatient Admission: see below Assessment and Plan New onset a-fib Continue cardizem gtt Eliquis for stroke ppx Cardiology consulted, appreciate recs echo ordered telemetry Pneumonia Continue Cefepime Await cultures from previous admission Wean oxygen as able Comminuted intertrochanteric left femoral fracture distal radial fracture osteoporosis POD #3 Continue pain regimen PT/OT already on alendronate and calcium supplement at home HTN HLD Hold antihypertensives due to relative hypotension on cardizem Continue statin Hypothyroidism Continue home synthroid DVt ppx: Lovenox Diagnosis/Problems Diagnosis/Problems (1) Afib (2) HLD (hyperlipidemia) (3) Essential (primary) hypertension (4) Hypothyroidism (5) Hip fracture Status: Acute (6) Wrist fracture Status: Acute (7) Osteoporosis MADHAVI NELSON MD Aug 25, 2021 11:22
--- NOTE | 2021-08-25 12:37 | Tele-ICU Progress Note ---
Progress Note diltiazem drip off due to hypotension Bolus 500 ml NS for persistent hypotension Focused Exam Height, Weight, BMI Height: 5'9.00" Weight: 175lbs. 0.0oz. 79.956470uu; 32.67 BMI Method:Stated ROM SHIN MD Aug 25, 2021 12:37
[2021-08-25 13:26] VITALS: BP 87/47
[2021-08-25] MEDS ORDERED: LACTATED RINGERS 1,000 ML IV SCH (14:45)
[2021-08-25] MEDS ORDERED: DIGOXIN 0.25 MG/ML (LANOXIN) 2 ML AMP IV ONE (14:45)
--- NOTE | 2021-08-25 14:53 | Consultation-Cardiology ---
HPI-Cardiology Cardiology Consultation: Date of Consultation 08/25/21 Time Seen by a Provider: 13:50 Date of Admission Attending Physician Madhavi Nelson MD Admitting Physician Luciano Olson DO Consulting Physician YUNIOR VICTOR MD, MA, FACP, FACC, FSCAI, CCDS HPI: Chief Complaint: Reason for Card consult: A Fib with RVR HPI 70 yo woman who had been admitted in early Aug for a nonsyncopal fall leading to L hip and L wrist facture, has undergone L hip surg and L wrist splinting, was on rehab, developed A Fib with RVR, was transferred to ICU. States has intermittently had palpitations consisting of rapid, irreg heart beat for a number of years, had ignored them. Denies cp or palp or syncope or leg swelling. Notes some gen malaise and weakness Review of Systems-Cardiology Review of Systems Constitutional: malaise, tiredness Eyes: No vision change Ears/Nose/Throat: No ear discharge, No nasal drainage, No recent hearing loss Respiratory: As described under HPI Cardiovascular: As described under HPI Gastrointestinal: No diarrhea, No nausea, No vomiting Genitourinary: No dysuria, No hematuria, No urine frequency changes Musculoskeletal: As describe under HPI Skin: No rash, No ulcerations Psychiatric/Neurological: No seizure, No focal weakness, No syncope Hematologic: No bleeding abnormalities WKS-Vqkicx-Hnpraf Hx Patient Social History Marrital Status: Employed/Student: retired Smoking Status: Never a Smoker Alcohol Use?: No Pt feels they are or have been: No Immunizations Up To Date Date of Pneumonia Vaccine: Jul 17, 2018 Date of Influenza Vaccine: Jul 17, 2018 Past Medical History PMH As described under Assessment. Family Medical History Family Medical History: She does not report fam h/o early CAD or SCD Allergies and Home Medications Allergies Coded Allergies: No Known Drug Allergies (Unverified , 01/17/19) Patient Home Medication List Home Medication List Reviewed: Yes Alendronate Sodium (Alendronate Sodium) 70 Mg Tablet, 70 MG PO WEEK, (Reported) Entered as Reported by: SHRUTHI IBRAHIM on 08/22/21 1500 Amlodipine Besylate (Amlodipine Besylate) 5 Mg Tablet, 5 MG PO DAILY, (Reported) Entered as Reported by: ALEXA JEFF on 01/17/19 1625 Atenolol (Atenolol) 50 Mg Tablet, 50 MG PO DAILY, (Reported) Entered as Reported by: ALEXA JEFF on 01/17/19 162 Calcium Carb/D3/Magnesium/Zinc (Josue Mag Zinc + D3 Tablet) 1 Each Tablet, 1 TAB PO DAILY, (Reported) Entered as Reported by: ALEXA JEFF on 01/17/191624 Cholecalciferol (Vitamin D3) (Vitamin D3) 125 Mcg Capsule, 125 MCG PO DAILY, (Reported) Entered as Reported by: SHRUTHI IBRAHIM on 08/22/21 1500 Furosemide (Furosemide) 20 Mg Tablet, 20 MG PO DAILY, (Reported) Entered as Reported by: ALEXA JEFF on 01/17/191624 Latanoprost (Xalatan) 2.5 Ml Drops, 1 DROP OU HS, (Reported) Entered as Reported by: SHRUTHI IBRAHIM on 08/22/21 1500 Levothyroxine Sodium (Levothyroxine Sodium) 25 Mcg Tablet, 25 MCG PO DAILY, (Reported) Entered as Reported by: ALEXA JEFF on 01/17/191624 Pantoprazole Sodium (Pantoprazole Sodium) 40 Mg Tablet.dr, 40 MG PO DAILY, (Reported) Entered as Reported by: SHRUTHI IBRAHIM on 08/22/21 1500 Potassium Chloride (Potassium Chloride) 10 Meq Tab.er.prt, 10 MEQ PO DAILY, (Reported) Entered as Reported by: SHRUTHI IBRAHIM on 08/22/21 1500 Simvastatin (Simvastatin) 20 Mg Tablet, 20 MG PO HS, (Reported) Entered as Reported by: ALEXA JEFF on 01/17/191624 Timolol Maleate (Timolol Maleate 0.5%) 5 Ml Drops, 1 DROP OU BID, (Reported) Entered as Reported by: ALEXA JEFF on 01/17/19 162 Discontinued Medications Anastrozole (Anastrozole) 1 Mg Tablet, 1 MG PO DAILY, (Reported) Discontinued Reason: No Longer Taking Entered as Reported by: HARRY MUIR on 02/15/19 1342 Cholecalciferol (Vitamin D3) (Vitamin D3) 400 Unit Capsule, 400 UNIT PO DAILY, (Reported) Discontinued Reason: Prescription changed Entered as Reported by: ALEXA JEFF on 01/17/19 162 Folic Acid (Folic Acid) 0.8 Mg Tablet, 0.8 MG PO DAILY, (Reported) Discontinued Reason: No Longer Taking Entered as Reported by: ALEXA JEFF on 01/17/19 162 Potassium Chloride (Potassium Chloride) 10 Meq Tablet.er, 10 MEQ PO DAILY, (Reported) Discontinued Reason: No Longer Taking Entered as Reported by: ALEXA JEFF on 01/17/19 1625 Physical Exam-Cardiology Physical Exam Vital Signs/I&O 08/25/21 08/25/21 08/25/21 08/25/21 03:00 04:00 04:00 04:01 Temp 36.7 Pulse 121 116 Resp 21 20 B/P (MAP) 92/54 97/62 Pulse Ox 98 98 96 O2 Delivery Nasal Cannula Nasal Cannula Nasal Cannula O2 Flow Rate 3.00 3.00 3.00 08/25/21 08/25/21 08/25/21 08/25/21 05:00 07:00 07:00 07:48 Temp 35.8 Pulse 105 120 106 Resp 20 19 B/P (MAP) 97/63 91/63 Pulse Ox 98 96 O2 Delivery Nasal Cannula Nasal Cannula O2 Flow Rate 3.00 3.00 08/25/21 08/25/21 08/25/21 08/25/21 08:00 08:42 09:00 09:59 Pulse 128 75 Resp 19 18 B/P (MAP) 90/51 92/56 Pulse Ox 95 93 96 96 O2 Delivery Nasal Cannula Nasal Cannula Nasal Cannula Nasal Cannula O2 Flow Rate 3.00 3.00 3.00 3.00 08/25/21 08/25/21 08/25/21 08/25/21 10:00 11:00 11:36 11:37 Pulse 98 94 Resp 20 18 B/P (MAP) 78/58 84/44 Pulse Ox 97 99 96 O2 Delivery Nasal Cannula Nasal Cannula Nasal Cannula Nasal Cannula O2 Flow Rate 3.00 3.00 3.00 2.00 08/25/21 08/25/21 08/25/21 08/25/21 11:59 12:00 12:54 13:00 Temp 35.9 Pulse 94 116 98 Resp 22 16 B/P (MAP) 87/47 97/54 Pulse Ox 96 96 O2 Delivery Nasal Cannula Nasal Cannula O2 Flow Rate 2.00 2.00 08/25/21 08/25/21 08/25/21 13:26 13:44 14:00 Temp 35.9 Pulse 116 105 Resp 15 B/P (MAP) 94/64 Pulse Ox 96 96 96 O2 Delivery Nasal Cannula Nasal Cannula O2 Flow Rate 2.00 2.00 FiO2 28 Capillary Refill : Constitutional: AAO x 3, well-developed, well-nourished HEENT: EOMI, hearing is well preserved; No xanthelasmas are seen Neck: carotid pulses are 2 + bilaterally Respiratory: No accessory muscle use; other (good, bilateral air entry) Cardiovascular: irregularly irregular, tachycardia, S1 and S2, systolic murmur (soft ALEXANDER at card base) Gastrointestinal: No tender; soft; No guarding, No rebound; audible bowel sounds Extremities: No clubbing, No cyanosis, No significant edema Neurologic/Psychiatric: oriented x 3, other (moves all limbs equally) Skin: normal color, warm/dry; No rash on exposed areas, No ulcerations on exposed areas Data Review Labs Laboratory Tests 08/25/21 04:55: White Blood Count 17.2H, Red Blood Count 2.83L, Hemoglobin 8.4L, Hematocrit 26L, Mean Corpuscular Volume 91, Mean Corpuscular Hemoglobin 30, Mean Corpuscular Hemoglobin Concent 33, Red Cell Distribution Width 13.4, Platelet Count 132, Mean Platelet Volume 9.7, Immature Granulocyte % (Auto) 1, Neutrophils (%) (Auto) 82H, Lymphocytes (%) (Auto) 10L, Monocytes (%) (Auto) 7, Eosinophils (%) (Auto) 0, Basophils (%) (Auto) 0, Neutrophils # (Auto) 14.0H, Lymphocytes # (Auto) 1.7, Monocytes # (Auto) 1.3H, Eosinophils # (Auto) 0.1, Basophils # (Auto) 0.0, Immature Granulocyte # (Auto) 0.1, Neutrophils % (Manual) 77, Lymphocytes % (Manual) 13, Monocytes % (Manual) 7, Band Neutrophils 3, Sodium Level 131L, Potassium Level 4.2, Chloride Level 100, Carbon Dioxide Level 23, Anion Gap 8, Blood Urea Nitrogen 10, Creatinine 0.69, Estimat Glomerular Filtration Rate 84, BUN/Creatinine Ratio 14, Glucose Level 135H, Calcium Level 8.3L, Corrected Calcium 9.3, Phosphorus Level 2.3, Magnesium Level 1.9, Total Bilirubin 0.4, Aspartate Amino Transf (AST/SGOT) 23, Alanine Aminotransferase (ALT/SGPT) 22, Alkaline Phosphatase 68, Total Protein 5.0L, Albumin 2.7L, Thyro id Stimulating Hormone (TSH) 0.13L Laboratory Tests 08/25/21 04:55 A/P-Cardiology Assessment/Admission Diagnosis PAF with RVR - CHADSVASc score 3 S/p nonsyncopal fall on 08/21/2021 - Intramedullary nailing of left intertrochanteric femur fracture on 08/22/2021 - splint L wrist on 08/22/21 H/o hypertension H/o hyperlipidemia H/o hypothyroidism Discussion and Recomendations * iv fluids to maintain bp (somewhat hypotensive at time of my exam) * Change Cardizem to oral * iv dig for rate control because of limitation with diltiazem and beta-blockers on account of low bp * Eliquis for stroke prophylaxis * Check TSH * Monitor labs * Echo * I discussed her CV issues and our treatment plan with her YUNIOR VICTOR MD FACP FAC CCDS Aug 25, 2021 14:53
[2021-08-25] MEDS ORDERED: LACTATED RINGERS 1,000 ML IV ONE ×3 (15:00→15:15)
[2021-08-25] MEDS: RT-ALBUTEROL SULF 2.5 MG/3 ML PRE-MIX VIAL INH SCH ×2 (15:29→18:49)
[2021-08-25] MEDS ORDERED: RT-ALBUTEROL SULF 2.5 MG/3 ML PRE-MIX VIAL INH PRN (17:00)
[2021-08-25] MEDS: DIGOXIN 0.25 MG/ML (LANOXIN) 2 ML AMP IV ONE (17:02)
[2021-08-25] MEDS: SIMvastatin 20 MG (ZOCOR) TAB PO SCH (20:28)
[2021-08-25] MEDS: LATANOPROST 0.005% (XALATAN) OPHTH SOLN 2.5 ML OU SCH (20:32)
--- NOTE | 2021-08-25 21:47 | Tele-ICU Progress Note ---
Progress Note Pt with Afib, rate controlled. Sepsis with PNA. Called by the nurse with hypotension. U/O 600 ml since afternoon. Received 1250 ml IVF so far. 500 ml bolus LR ordered. Interventions Major-Hypotension - evaluation and management Focused Exam Height, Weight, BMI Height: 5'9.00" Weight: 175lbs. 0.0oz. [id number]; 32.67 BMI Method:Stated ORIN PASTOR MD Aug 25, 2021 21:47
[2021-08-26] MEDS: LACTATED RINGERS 1,000 ML IV SCH ×4 (02:04→23:59)
[2021-08-26] MEDS: ACETAMINOPHEN 325 MG TABLET PO PRN (02:59)
[2021-08-26] MEDS: MAGNESIUM 1 GM/100 ML IVPB 100 ML IV SCH (05:46)
[2021-08-26] MEDS: POTASSIUM CL 10MEQ/50ML IVPB 50 ML IV SCH (05:46)
[2021-08-26] MEDS: CEFEPIME INJECTION 1,000 MG in WATER (STERILE) FOR INJECTION 10 ML IV SCH ×4 (05:46→23:56)
[2021-08-26] MEDS: LEVOTHYROXINE 25 MCG (LEVOTHROID) TAB PO SCH (05:46)
[2021-08-26] MEDS: KCL 20 MEQ TAB (K-DUR) PO SCH (05:47)
[2021-08-26 05:57] LABS: BASOPHILS % (AUTO) 0 % (0-10); HEMOGLOBIN 7.6 g/dL (11.5-16.0)
[2021-08-26 06:00] LABS: EOSINOPHILS # (AUTO) 0.1 10^3/uL (0.0-0.3); EOSINOPHILS % (AUTO) 1 % (0-10); HEMATOCRIT 23 % (35-52); LYMPHOCYTES # (AUTO) 1.6 10^3/uL (1.0-4.0); LYMPHOCYTES % (AUTO) 13 % (12-44); MEAN CORPUSCULAR HEMOGLOBIN 30 pg (25-34); MEAN CORPUSCULAR HGB CONC 33 g/dL (32-36); MEAN CORPUSCULAR VOLUME 91 fL (80-99); MEAN PLATELET VOLUME 9.4 fL (9.0-12.2); MONOCYTES % (AUTO) 8 % (0-12); NEUTROPHILS # (AUTO) 9.7 10^3/uL (1.8-7.8); NEUTROPHILS % (AUTO) 77 % (42-75); PLATELET COUNT 145 10^3/uL (130-400); WHITE BLOOD COUNT 12.5 10^3/uL (4.3-11.0)
[2021-08-26 06:13] LABS: ALBUMIN 2.5 GM/DL (3.2-4.5); POTASSIUM 4.8 MMOL/L (3.6-5.0)
[2021-08-26 06:14] LABS: CALCIUM 8.3 MG/DL (8.5-10.1)
[2021-08-26 06:16] LABS: TOTAL PROTEIN 4.8 GM/DL (6.4-8.2)
[2021-08-26 06:17] LABS: BILIRUBIN,TOTAL 0.4 MG/DL (0.1-1.0)
[2021-08-26 06:19] LABS: CREATININE SERUM 0.71 MG/DL (0.60-1.30); PHOSPHORUS 2.5 MG/DL (2.3-4.7)
[2021-08-26] MEDS: RT-ALBUTEROL SULF 2.5 MG/3 ML PRE-MIX VIAL INH SCH ×4 (07:06→19:00)
[2021-08-26] MEDS: TIMOLOL MALEATE 0.5% 5 ML (TIMOPTIC) BTL OU SCH ×2 (08:37→21:01)
[2021-08-26] MEDS: SENNA W/DOCUSATE (SENOKOT S) TABLET PO SCH ×2 (08:37→21:00)
[2021-08-26] MEDS: PANTOPRAZOLE 40 MG (PROTONIX) TAB PO SCH (08:37)
[2021-08-26] MEDS: APIXABAN 5 MG (ELIQUIS) TABLET PO SCH ×2 (08:37→21:00)
[2021-08-26] MEDS: VITAMIN D3 125 MCG (5,000 UNITS) CAPSULE PO SCH (08:37)
[2021-08-26] MEDS: KCL 10 MEQ TAB (MICRO K) PO SCH (08:37)
[2021-08-26] MEDS: CALCIUM CARB + VIT D 600 MG (CALCARB + D) TAB PO SCH (08:37)
[2021-08-26] MEDS: polyethylene glycoL POWDER 17 GM (MIRALAX) PACK PO SCH ×2 (08:38→21:00)
[2021-08-26] MEDS: HYDROcodone/APAP 5 MG/325 MG (LORTAB) TAB PO PRN ×2 (09:02→18:31)
[2021-08-26] MEDS ORDERED: BISACODYL 10 MG SUPP (DULCOLAX) PR PRN (09:45)
[2021-08-26] MEDS ORDERED: CYANOCOBALAMIN INJ 1000 MCG/ML IM ONE (09:45)
[2021-08-26] MEDS ORDERED: BISACODYL 10 MG SUPP (DULCOLAX) PR ONE (09:45)
--- NOTE | 2021-08-26 10:52 | Tele-ICU Progress Note ---
Subjective Date Seen by a Provider: Aug 26, 2021 Time Seen by a Provider: 10:52 Sepsis Event Evaluation Height, Weight, BMI Height: 5'9.00" Weight: 175lbs. 0.0oz. 79.549888xh; 32.67 BMI Method:Stated Exam Exam Patient acknowledged, consented, and participated in this virtual visit which was conducted using real time audio/video Vital Signs Date Time Temp Pulse Resp B/P (MAP) Pulse Ox O2 Delivery O2 Flow Rate FiO2 08/26/21 10:00 120 18 101/56 94 Nasal Cannula 2.00 08/26/21 09:00 105 22 102/89 94 Nasal Cannula 2.00 08/26/21 08:00 104 18 107/47 95 Nasal Cannula 2.00 08/26/21 08:00 95 Nasal Cannula 2.00 08/26/21 07:50 36.1 08/26/21 07:06 96 Nasal Cannula 2.00 08/26/21 07:00 108 21 82/56 96 Nasal Cannula 2.00 08/26/21 06:40 111 08/26/21 06:00 106 16 99/47 97 Nasal Cannula 2.00 08/26/21 05:00 104 17 106/64 97 Nasal Cannula 2.00 08/26/21 04:00 95 Nasal Cannula 2.00 08/26/21 04:00 36.1 Nasal Cannula 2.00 08/26/21 04:00 108 15 93/61 96 Nasal Cannula 2.00 08/26/21 03:30 36.1 08/26/21 03:00 86 17 99/61 95 Nasal Cannula 2.00 08/26/21 02:00 131 19 97/57 97 Nasal Cannula 2.00 08/26/21 01:00 90 08/26/21 01:00 90 19 103/46 94 Nasal Cannula 2.00 08/26/21 00:15 70 19 98/49 95 Nasal Cannula 2.00 08/25/21 23:30 94 Nasal Cannula 2.00 08/25/21 23:30 90 24 103/44 93 Nasal Cannula 2.00 08/25/21 23:18 36.9 08/25/21 23:00 78 18 93/57 96 Nasal Cannula 2.00 08/25/21 22:15 114 19 92/43 97 Nasal Cannula 2.00 08/25/21 22:00 101 19 84/57 97 Nasal Cannula 2.00 08/25/21 21:04 116 18 94/50 97 Nasal Cannula 2.00 08/25/21 20:00 121 17 104/55 95 Nasal Cannula 2.00 08/25/21 19:15 95 Nasal Cannula 2.00 08/25/21 19:00 37.1 117 16 105/57 96 Nasal Cannula 2.00 08/25/21 19:00 124 08/25/21 18:49 96 Nasal Cannula 2.00 08/25/21 18:00 124 17 107/57 96 Nasal Cannula 2.00 08/25/21 17:00 121 16 94/58 97 Nasal Cannula 2.00 08/25/21 16:52 97 Nasal Cannula 3.00 08/25/21 16:00 115 18 100/75 97 Nasal Cannula 2.00 08/25/21 15:55 36.1 08/25/21 15:30 96 Nasal Cannula 2.00 08/25/21 15:00 133 16 94/49 96 Nasal Cannula 2.00 08/25/21 14:00 105 15 94/64 96 Nasal Cannula 2.00 08/25/21 13:44 96 Nasal Cannula 2.00 08/25/21 13:26 35.9 116 96 28 08/25/21 13:00 98 16 97/54 96 Nasal Cannula 2.00 08/25/21 12:54 116 08/25/21 12:00 94 22 87/47 96 Nasal Cannula 2.00 08/25/21 11:59 35.9 08/25/21 11:37 Nasal Cannula 2.00 08/25/21 11:36 96 Nasal Cannula 3.00 08/25/21 11:00 94 18 84/44 99 Nasal Cannula 3.00 I & O 08/26/21 07:00 Intake Total 5520 ml Output Total 2550 ml Balance 2970 ml Height & Weight Height: 5'9.00" Weight: 175lbs. 0.0oz. 79.217321go; 32.67 BMI Method:Stated General Appearance: No Apparent Distress, WD/WN HEENT: PERRL/EOMI, Moist Mucous Membranes Neck: Normal Inspection, Supple Respiratory: Lungs Clear, No Respiratory Distress Cardiovascular: No JVD, No Murmur, Irregularly Irregular Capillary Refill: Less Than 3 Seconds Gastrointestinal: normal bowel sounds, non tender Extremity: No Calf Tenderness, No Pedal Edema Neurologic/Psychiatric: Alert, Oriented x3, Normal Mood/Affect Skin: Normal Color, Warm/Dry Results Lab Laboratory Tests 08/25/21 04:55 08/26/21 05:45 Assessment/Plan Assessment/Plan (Tele-ICU Physician , Progress Note ) Available chart/ vitals / labs / Images reviewed Video assessment done using teleICU camera, rest of exam as per RN Discussed with RN , EXAM PER RN Events overnight : Afebrile I/O = pos 2L Drips: Pressors: , hemodynamically stable Consultants: Hospital course: 08/21) 70F Admitted s/p fall left hip fracture, ?UTI (08/22) S/P ORIF left Hip. (08/24) Increase in WBC. started on antibiotics (08/25) Transferred to ICU for New Atrial Fibrillation (RVR). Cardizem drip started. Hypotension, cardizem stopped. Fluids given A/P PAF with RVR ( no PE ) - PER CARDS- dig - echo - -AC - eliquis Acute rersp failure - on 2 l O2 now , CT 08/24 - no PE - PN aand small effusions RLL PNA ( by CT ) - on empiric abx - PNA vs UTI -cefepime S/p nonsyncopal fall on 08/21/2021 - Intramedullary nailing of left intertrochanteric femur fracture on 08/22/2021 - splint L wrist on 08/22/21 - pain control Gallstone in the neck of the gallbladder with mildly distended gallbladder by CT - monitor symptoms Lines : (Central Line Necessity Reviewed) [place]: OG: Nutrition: PO Analgesia: PO Anxiety/ delirium VTE Prophylaxis: eliquis Stress Ulcer Prophylaxis: po Plans in collaboration with bedside consultants and IM MDs. Discussed with RN to reach out if any questions or concerns A total of 25minutes of critical care time was devoted to this patient today, required to treat and/or prevent further deterioration of critical care conditijim n ( as above) ANGELIQUE ARCE MD Aug 26, 2021 10:52
[2021-08-26] MEDS: CYANOCOBALAMIN 1,000 MCG (VITAMIN B-12) TABLET PO SCH (10:54)
[2021-08-26] MEDS: IRON SUCROSE 200 MG/10 ML (VENOFER) VIAL IV SCH (10:54)
--- NOTE | 2021-08-26 11:38 | Physical Therapy Evaluation ---
PT Evaluation-General Medical Diagnosis Admission Date Aug 25, 2021 at 00:13 Medical Diagnosis: A-Fib Onset Date: Aug 25, 2021 Therapy Diagnosis Therapy Diagnosis: debility/weakness Height/Weight Height (Feet): 5 Height (Inches): 9.00 Weight (Pounds): 175 Weight (Ounces): 0.0 Precautions Precautions/Isolations: Fall Prevention, Standard Precautions Weight Bear Status Right Lower Extremity: Right Full Weight Bearing Left Lower Extremity: Left Weight Bearing/Tolerated No weight through left wrist Referral Physician: Omar Reason for Referral: Evaluation/Treatment Medical History Pertinent Medical History: HTN, Hypothroidism Additional Medical History breast cancer Current History transfer from ARU to ICU due to A-fib/s/p left hip and wrist fracture with repair Reviewed History: Yes Social History Home: Single Level Current Living Status: Spouse Prior Prior Level of Function SCALE: Activities may be completed with or without assistive devices. 0-Skjeawafvw-oclnfpp completes the activity by him/herself with no assistance from a helper. 5-Set-up or Clean-up Assistance-helper sets up or cleans up; patient completes activity. [place] assists only prior to or following the activity. 4-Supervision or Touching Assistance-helper provides verbal cues and/or touching/steadying and/or contact guard assistance as patient completes activity. Assistance may be provided throughout the activity or intermittently. 3-Partial/Moderate Assistance-helper does LESS THAN HALF the effort. [place] lifts, holds or supports trunk or limbs, but provides less than half the effort. 2-Substantial/Maximal Assistance-helper does MORE THAN HALF the effort. [place] lifts or holds trunk or limbs and provides more than half the effort. 4-Goekdvxlw-tbhvvr does ALL the effort. Patient does none of the effort to complete the activity. Or, the assistance of 2 or more helpers is required for the patient to complete the activity. If activity was not attempted, code reason: 7-Patient Refused. 9-Not Applicable-not attempted and the patient did not perform the activity before the current illness, exacerbation or injury. 10-Not Attempted due to Environmental Limitations-(lack of equipment, weather restraints, etc.). 88-Not Attempted due to Medical Conditions or Safety Concerns. Bed Mobility: 6 Transfers (B,C,W/C): 6 Gait: 6 Stairs: 6 Indoor Mobility (Ambulation): Independent Stairs: Independent Prior Devices Use: None PT Evaluation-Current Subjective Patient agrees to PT. Agrees to up in recliner. Pain Numeric Pain Scale: 5-Moderate Pain Location: Left Location Body Site: Hip Pain Description: Acute Objective Patient Orientation: Normal For Age Attachments: Oxygen, [place] Catheter, IV ROM/Strength ROM Lower Extremities bilateral LE WFL Strength Lower Extremities right LE 3+/5 grossly/left LE 3-/5 grossly Integumentary/Posture Bladder Incontinence: [place] Cath Posture slightly kyphotic Neuromuscular (Tone, Coordination, Reflexes) grossly intact Sensory Vision: Wears Glasses Hearing: Hearing Aid/Aides Sensation Right Lower Extremit: Intact Sensation Left Lower Extremity: Intact Transfers Roll Left to Right (QC): 2 Lying to Sitting/Side of Bed(Q: 2 Sit to Stand (QC): 2 Chair/Gal-hb-Pjkjx Xfer(QC): 2 (continues to have difficulty with weight bearing left LE due to pain/weakness) Gait Mode of Locomotion: Walk Anticipated Mode of Locomotion: Walk Distance: 5 steps Gait Assistive Device: Walker Platform (left ) Comments/Gait Description able to clear left foot with sequence,however, unable to clear right foot due to minimal weight bearing left LE with VC's/encouragement to utilized and work through pain. Balance Sitting Static: Normal Sitting Dynamic: Normal Standing Static: Fair Standing Dynamic: Fair Treatment bilateral LE exercises 12 reps LAQ/AP/ sit to stand to left platform FWW x 3 sets max assist Assessment/Needs 70 y.o. female, will benefit from skilled PT to address functional strength and mobility to improve current LOF to safely return to home at maximum LOF. Rehab Potential: Fair PT Log Carrier Operator Goals Log Carrier Operator Goals PT [facility] Goals Time Frame: Sep 14, 2021 Roll Left & Right (QC): 5 Sit to Lying (QC): 5 Lying-Sitting on Side/Bed(QC): 5 Sit to Stand (QC): 5 Chair/Axr-fn-Bojza Xfer(QC): 5 Toilet Transfer (QC): 5 Car Transfer (QC): 5 Walk 10 feet (QC): 5 Walk 50ft with 2 Turns (QC): 5 Walk 150 ft (QC): 5 PT Plan Problem List Problem List: Activity Tolerance, Functional Strength, Safety, Balance, Gait, Transfer, Bed Mobility Treatment/Plan Treatment Plan: Continue Plan of Care Treatment Plan: Bed Mobility, Education, Functional Activity Sheyla, Functional Strength, Gait, Safety, Therapeutic Exercise, Transfers Treatment Duration: Sep 14, 2021 Frequency: 11 times per week Estimated Hrs Per Day: .5 hour per day Patient and/or Family Agrees t: Yes Time/GCodes Time In: 1047 Time Out: 1117 Total Billed Treatment Time: 30 Total Billed Treatment 1 visit EVModC 18 min FA 12 min ARABELLA SANFORD PT Aug 26, 2021 11:38
--- NOTE | 2021-08-26 12:08 | Progress Note ---
NORMA KAT 08/26/21 1208: Subjective Date Seen by a Provider: Aug 26, 2021 Time Seen by a Provider: 08:30 Subjective/Events-last exam CC/HPI: Jacobo Rudolph is a 70 yo female, previously in rehab, who presents for evaluation and management of A Fib with RVR Jacobo is NAD, conversational Reports general weakness Has appetite Denies any pain No bowel movement today, but started Senna and bisacodyl Currently on oxygen by nasal cannula, with an oxygen flow rate of 2 Currently on cefepime to treat pneumonia Has been hypotensive and tachycardic; Dr Crawley initiated IV fluids Cardizem drip d/c, change to PO cardizem IV Digoxin for rate control Eliquis for stroke prophylaxis Echo, w possible cardioversion on 08/27/2021 PT continues to see Jacobo to prevent loss of strength TSH is 0.13 on 08/25/21, recheck and hold levothyroxine Elevated WBC at 12.5 (decreased from 17.2 on 08/25/2021) Review of Systems General: Fatigue, Malaise Neurological: Weakness Focused Exam Sepsis Stage: Sepsis (Pulse > 90, WBC > 12, 000. Risk present) Respiratory: Rales Cardiovascular: Irregularly Irregular Skin: normal color, warm/dry Objective Exam Last Set of Vital Signs Vital Signs Date Time Temp Pulse Resp B/P (MAP) Pulse Ox O2 Delivery O2 Flow Rate FiO2 08/26/21 11:00 82 21 99/64 95 Nasal Cannula 2.00 08/26/21 07:50 36.1 08/25/21 13:26 28 Capillary Refill : Less Than 3 Seconds I&O Intake and Output 08/26/21 00:00 Intake Total 4185 ml Output Total 1450 ml Balance 2735 ml Intake Oral 1550 ml IV Total 2635 ml Output Urine Total 1450 ml Daily Weight Change No General: Alert, Oriented X3, Cooperative, No Acute Distress Neuro: Normal Speech Psych/Mental Status: Mental Status NL Results Lab Laboratory Tests 08/26/21 05:45: White Blood Count 12.5H, Red Blood Count 2.56L, Hemoglobin 7.6L, Hematocrit 23L, Mean Corpuscular Volume 91, Mean Corpuscular Hemoglobin 30, Mean Corpuscular Hemoglobin Concent 33, Red Cell Distribution Width 13.5, Platelet Count 145, Mean Platelet Volume 9.4, Immature Granulocyte % (Auto) 1, Neutrophils (%) (Auto) 77H, Lymphocytes (%) (Auto) 13, Monocytes (%) (Auto) 8, Eosinophils (%) (Auto) 1, Basophils (%) (Auto) 0, Neutrophils # (Auto) 9.7H, Lymphocytes # (Auto) 1.6, Monocytes # (Auto) 1.0, Eosinophils # (Auto) 0.1, Basophils # (Auto) 0.0, Immature Granulocyte # (Auto) 0.1, Percent Immature Platelet Fraction 2.0, Sodium Level 135, Potassium Level 4.8, Chloride Level 104, Carbon Dioxide Level 23, Anion Gap 8, Blood Urea Nitrogen 18, Creatinine 0.71, Estimat Glomerular Filtration Rate 81, BUN/Creatinine Ratio 25, Glucose Level 116H, Calcium Level 8.3L, Corrected Calcium 9.5, Phosphorus Level 2.5, Magnesium Level 2.0, Total Bilirubin 0.4, Aspartate Amino Transf (AST/SGOT) 40H, Alanine Aminotransferase (ALT/SGPT) 39, Alkaline Phosphatase 73, Total Protein 4.8L, Albumin 2.5L Meds Item Value Date Time Bisacodyl 10 mg 08/26/21 0945 (Dulcolax DAILY PRN/NM Suppository) Cyanocobalamin 1,000 mcg 08/26/21 0945 (Vitamin B-12 DAILY@0700/PO 08/26/21 1054 Tablet) Iron Sucrose 200 mg 08/26/21 0945 (Venofer Q48H@09/IV 08/26/21 1054 Injection) Diltiazem HCl 240 mg 08/26/21 0900 (Cardizem Cd 24 DAILY/PO 08/26/21 0837 Hr Capsule) Lactated Ringer's 1,000 ml @ 100 mls/hr 08/25/212144 Simvastatin 20 mg 08/25/21 2100 (Zocor Tablet) HS/PO 08/25/212027 Latanoprost 1 ml 08/25/212099 (Xalatan 0.005% HS/OU 08/25/212031 Ophthalmic Solution) Albuterol Sulfate 2.5 mg 08/25/21 1700 (Proventil Q2HR PRN/INH Pre-Mix Nebs (Rt)) Albuterol Sulfate 2.5 mg 08/25/21 1500 (Proventil RTQID/INH 08/26/21 1059 Pre-Mix Nebs (Rt)) Apixaban 5 mg 08/25/21 0900 (Eliquis Tablet) BID/PO 08/26/21 0837 Calcium/Vitamin D 600 mg 08/25/21 0900 (Calcarb 600 + D DAILY/PO 08/26/21 08 Tablet) Cholecalciferol 125 mcg 08/25/21 09 (Vitamin D3 DAILY/PO 08/26/21836 Capsule/Tablet) Potassium Chloride 10 meq 08/25/21 09 (Klor Con Tablet) DAILY/PO 08/26/21 08 Senna 1 ea 08/25/21 0900 (Senokot S BID/PO 08/26/21836 Tablet) Timolol Maleate 1 DROP 08/25/21 09 (Timoptic 0.5% BID/OU 08/26/21836 Ophthalmic Solution) Polyethylene 17 gm 08/25/21 09 Glycol BID/PO 08/26/21 0838 (Miralax 17 Gm Packet) Potassium Chloride 40 meq 08/25/21 0600 (K Dur Tablet) DAILY@0600/PO Magnesium Sulfate/ 100 ml @ 0 mls/hr 08/25/21 0600 Dextrose DAILY@0600/IV Potassium Chloride 50 ml @ 0 mls/hr 08/25/21 0600 Cefepime HCl 1000 10 ml @ 200 mls/hr 08/25/21 0600 mg/Sterile Water Q6HR/IV 08/26/21 1054 Morphine Sulfate 5 mg 08/25/21 0315 (morphine Q2H PRN/IVP INJECTION) Guaifenesin/ 10 ml 08/25/21 0315 Codeine Phosphate Q4H PRN/PO (Robitussin Ac (Codeine) Syrup) Hydralazine HCl 5 mg 08/25/21 0315 (Apresoline Q4H PRN/IV Injection) Sodium Chloride 10 ml 08/25/21 0315 (Catheter Flush NEEDED PRN/IV Syringe) Ondansetron HCl 4 mg 08/25/21 0315 (Zofran Oral Q6H PRN/PO Dissolve Tablet) Lactulose 10 gm 08/25/21 0315 (Enulose Oral BID PRN/PO Solution) Loperamide HCl 2 mg 10/10/21 0315 (Imodium Tablet) PRN PRN/PO Alprazolam 0.25 mg 08/25/21 0315 (Xanax Tablet) Q8H PRN/PO Acetaminophen 650 mg 08/25/21 0315 (Tylenol Tablet) Q4H PRN/PO 08/26/21 0259 Radiology NAME: JACOBO RUDOLPH [facility] REC#: [id number] PT STATUS: ADM IN : 1950 PHYSICIAN: CHAPINCITO RIVERO MD ADMIT DATE: 08/21/21 Signed Date of Exam:08/24/21 CHEST 1 VIEW, AP/PA ONLY INDICATION: Short of air EXAMINATION: Chest 08/24/2021 COMPARISON: 08/21/2021 FINDINGS: There are diffuse infiltrates throughout the right lung, new since the previous imaging. There is eventration of the left hemidiaphragm. Multiple old rib fractures noted on the left. There are no effusions. No pneumothorax. Heart and pulmonary vasculature stable. IMPRESSION: 1. New infiltrates throughout the right lung. Dictated by: Dictated on workstation # [id number] Dict: 08/24/2144 Trans: 08/24/21 0845 [facility] [id number] Interpreted by: MARCO ANTONIO RODRIGUEZ MD Electronically signed by: MARCO ANTONIO RODRIGUEZ MD 08/24/2145 NAME: JACOBO RUDOLPH [facility] REC#: [id number] PT STATUS: ADM IN : 1950 PHYSICIAN: CHAPINCITO RIVERO MD ADMIT DATE: 08/21/21 Signed Date of Exam:08/24/21 CT ANGIO CHEST W PROCEDURE: CT angiography of the chest with contrast. TECHNIQUE: Multiple contiguous axial images were obtained through the chest after uneventful bolus administration of intravenous contrast. 3D reconstructed CTA MIP acquisitions were also performed. Auto Exposure Controls were utilized during the CT exam to meet ALARA standards for radiation dose reduction. INDICATION: Increasing oxygen requirements. Elevated D-dimer. COMPARISON: 08/24/2021. 01/17/2019. FINDINGS: This helical CT pulmonary angiogram is diagnostic to the subsegmental level branches of the pulmonary artery and demonstrates no pulmonary emboli. The heart and great vessels are unremarkable. There is no pericardial effusion. There is no axillary, mediastinal, or hilar adenopathy. Prominent nodule is again seen in the left lobe of the thyroid. Small bilateral pleural effusions are present. Consolidative opacities are seen in the dependent portion of the right upper lobe and throughout the majority of the right lower lobe. Small amount of dependent atelectasis is seen in the left lung base. No pulmonary nodules are seen. No central endobronchial obstructing lesions. No pneumothorax. No acute osseous abnormalities are seen. There is prominent calcification extending from the T7-T8 level resulting in severe spinal canal stenosis at this level. Chronic rib fractures are noted on the left. Moderate hiatal hernia is seen. The gallbladder is mildly distended with a gallstone in the neck of the gallbladder. IMPRESSION: 1. No acute pulmonary embolus. 2. Lobar pneumonia involving the right lower lobe with involvement in the dependent right upper lobe. 3. Bilateral small pleural effusions. 4. Gallstone in the neck of the gallbladder with mildly distended gallbladder. Recommend correlation with patient history and symptoms and, if indicated, liver gallbladder ultrasound to further evaluate. 5. Moderate hiatal hernia. 6. Prominent calcifications extending from the T7-T8 level resulting in severe spinal canal stenosis. This was present on the prior exam from 01/17/2019. Dictated by: Dictated on workstation # [id number] Dict: 08/24/21702 Trans: 08/24/21718 [facility] [id number] Interpreted by: BIANCA MOON DO Electronically signed by: BIANCA MOON DO 08/24/21718 Assessment/Plan Assessment/Plan Assess & Plan/Chief Complaint New onset a-fib Discontinued cardizem drip d/t hypotension Eliquis for stroke ppx EKG and ECHO ordered Telemetry Lobar pneumonia involving the right lower lobe and dependent right upper lobe Continue Cefepime Await cultures from previous admission Wean oxygen as able Anemia (normo-cytic) Low Hgb at 7.6 Administer Iron and B12 injection Order Iron labs Continue to monitor Constipation Initiate Bisacodyl Continue Senna Comminuted intertrochanteric left femoral fracture distal radial fracture osteoporosis Continue pain regimen PT/OT already on alendronate and calcium supplement at home HTN HLD Hold antihypertensives due to relative hypotension on cardizem Continue statin Hypothyroidism TSH: 0.13, hold levothyroxine for now CARMELITA VAZ DO 08/27/21 0543: Subjective Subjective/Events-last exam Patient remained stable Cardioversion planned for tomorrow per Dr. Crawley Updated at the bedside IV antibiotics for pneumonia maintained PT and OT will be consulted also Laxatives will be given since no BM yet Given a liter and a half of fluid due to hypotension Dig and Cardizem are now p.o. Eliqudavid noted Review of Systems General: Fatigue, Malaise Objective Exam General: Alert, Oriented X3, Cooperative, No Acute Distress Lungs: Clear to Auscultation, Normal Air Movement Heart: Normal S1, Normal S2, No Murmurs, Other (Irregular) Psych/Mental Status: Mental Status NL, Mood NL Assessment/Plan Assessment/Plan Assess & Plan/Chief Complaint Cardiology consult appreciated Cardioversion tomorrow IV antibiotics Loco Rate control PT and OT Supervisory-Addendum Brief Verification & Attestation Participated in pt care: history, MDM, physical Personally performed: exam, history, MDM, supervision of care Care discussed with: Medical Student Procedures: n/a Results interpretation: Verified all documentation Verification and Attestation of Medical Student E/M Service A medical student performed and documented this service in my presence. I reviewed and verified all information documented by the medical student and made modifications to such information, when appropriate. I personally performed the physical exam and medical decision making. Carmelita Vaz, Aug 27, 2021,05:43 NORMA KAT Aug 26, 2021 12:08 CARMELITA VAZ DO Aug 27, 2021 05:43
--- NOTE | 2021-08-26 12:24 | Occupational Therapy Eval ---
OT Evaluation-General/PLF Medical Diagnosis Admission Date Aug 25, 2021 at 00:13 Medical Diagnosis: A-Fib Onset Date: Aug 25, 2021 Therapy Diagnosis Therapy Diagnosis: Impaired adls, iadls, balance, endurance, strength, flexibility Height/Weight Height (Feet): 5 Height (Inches): 9.00 Weight (Pounds): 175 Weight (Ounces): 0.0 Precautions Precautions/Isolations: Fall Prevention, Standard Precautions Weight Bear Status WBAT: LLE NWB L wrist Referral Physician: Omar Medical History Pertinent Medical History: HTN, Hypothroidism Current History transfer from ARU to ICU due to A-fib/s/p left hip and wrist fracture with repair. WBAT L hip, NWB L wrist. Pt reported that she was previously independent with basic self cares and IADLs. She still drives and is retired from [employer]. Reviewed History: Yes Social History Home: Single Level Current Living Status: Spouse Entry Into Home: Stairs With Railing ADL-Prior Level of Function SCALE: Activities may be completed with or without assistive devices. 2-Cenhismpwp-kgylevd completes the activity by him/herself with no assistance from a helper. 5-Set-up or Clean-up Assistance-helper sets up or cleans up; patient completes activity. [place] assists only prior to or following the activity. 4-Supervision or Touching Assistance-helper provides verbal cues and/or touching/steadying and/or contact guard assistance as patient completes activity. Assistance may be provided throughout the activity or intermittently. 3-Partial/Moderate Assistance-helper does LESS THAN HALF the effort. [place] lifts, holds or supports trunk or limbs, but provides less than half the effort. 2-Substantial/Maximal Assistance-helper does MORE THAN HALF the effort. [place] lifts or holds trunk or limbs and provides more than half the effort. 5-Qhtlfyaeu-cqyvpn does ALL the effort. Patient does none of the effort to complete the activity. Or, the assistance of 2 or more helpers is required for the patient to complete the activity. If activity was not attempted, code reason: 7-Patient Refused. 9-Not Applicable-not attempted and the patient did not perform the activity before the current illness, exacerbation or injury. 10-Not Attempted due to Environmental Limitations-(lack of equipment, weather restraints, etc.). 88-Not Attempted due to Medical Conditions or Safety Concerns. Self Care: Independent Functional Cognition: Independent DME/Equipment: Bath Bench, Grab Bars, Tall Toilet, Tub/Shower Drive Self: Yes OT Current Status Subjective Pt reports anxiety about going back to rehab. Appearance Pt left sitting in recliner, all needs within reach, spouse in room. Mental Status/Objective Patient Orientation: Person, Place, Situation [place], requires repetition Attachments: Mckeon Catheter, IV, Oxygen, Telemetry Current Upper Extremity ROM ~3/4 AROM bilat shoulders. L forearm to above elbow wrapped and not tested. Pt able to move distal fingers L Upper Extremity Coordination decreased on L due to positioning, edema Upper Extremity Strength Grossly 3+/5 R. L not assessed. ADL-Treatment Shower/Bathe Self (QC): 1 (based on clinical judgement) Lower Body Dressing (QC): 1 On/Off Footwear (QC): 1 Toileting Hygiene (QC): 1 (based on clinical judgement, pt currently with mckeon catheter) Pt reports that she has been able to feed herself with setup. She also indicates that she has brushed her teeth with setup/cleanup. Max a to stand, difficulty bearing weight through RLE. Unable to take step secondary to pain. Poor standing tolerance. At this time, pt would require assist x2 for clothing management and emma care. No effort/attempt to don/doff jesika socks, reports that she would be unable to complete. Pt would benefit from instruction/education on adaptive e quipment. Continues to exhibit A-fib during session. Other Treatments Pt and family education on rehab process, purpose of OT, anticipated therapy progression. Pt encouraged to continue to move L fiingers to help decrease edema. Education OT Patient Education: Correct positioning, Energy conservation, Modified ADL techniques, Progress toward Goal/Update tx plan, Purpose of tx/functional activities, Reviewed precautions, Rehab process, Safety issues, Transfer techniques, Use of adapted equipment Teaching Recipient: Patient, Family Teaching Methods: Demonstration, Discussion Response to Teaching: Verbalize Understanding, Return Demonstration, Reinforcement Needed OT Group Home Goals Health Policy Nurse Goals Time Frame: Sep 14, 2021 Oral Hygiene (QC): 5 Toileting Hygiene (QC): 4 Shower/Bathe Self (QC): 4 Upper Body Dressing (QC): 5 Lower Body Dressing (QC): 4 On/Off Footwear (QC): 5 1=Demonstrate adherence to instructed precautions during ADL tasks. 2=Patient will verbalize/demonstrate understanding of assistive devices/modifications for ADL. 3=Patient will improve strength/tolerance for activity to enable patient to perform ADL's. OT Education/Plan Problem List/Assessment Assessment: Decreased Activ Tolerance, Decreased Safety Aware, Decreased UE Strength, Dependent Transfers, Impaired Bed Mobility, Impaired Coordination, Impaired Funct Balance, Impaired I ADL's, Impaired Self-Care Skills, Restricted Funct UE ROM Discharge Recommendations Plan/Recommendations: Continue POC Therapy Discharge Recommendati: Post Acute OT Equpiment Recommendations-D/C: Home Health Registered Nurse, Sock Aide Treatment Plan/Plan of Care Treatment,Training & Education: Yes Patient would benefit from OT for education, treatment and training to promote independence in ADL's, mobility, safety and/or upper extremity function for ADL's. Plan of Care: ADL Retraining, Functional Mobility, Group Exercise/Act as Ind, UE Funct Exercise/Act Treatment Duration: Sep 14, 2021 Frequency: 5 times per week Estimated Hrs Per Day: .25 hour per day Agreement: Yes Rehab Potential: Fair Time/GCodes Start Time: 11:58 Stop Time: 12:11 Total Time Billed (hr/min): 13 Billed Treatment Time 1 visit, Nita Rasmussen OT Aug 26, 2021 12:24
--- NOTE | 2021-08-26 13:59 | Physical Therapy Daily Note ---
PT Daily Note-Current Subjective Patient agrees to exercise only. Transfers SCALE: Activities may be completed with or without assistive devices. 5-Bkiaxjrpix-kzwifbz completes the activity by him/herself with no assistance from a helper. 5-Set-up or Clean-up Assistance-helper sets up or cleans up; patient completes activity. [place] assists only prior to or following the activity. 4-Supervision or Touching Assistance-helper provides verbal cues and/or touching/steadying and/or contact guard assistance as patient completes activity. Assistance may be provided throughout the activity or intermittently. 3-Partial/Moderate Assistance-helper does LESS THAN HALF the effort. [place] lift s, holds or supports trunk or limbs, but provides less than half the effort. 2-Substantial/Maximal Assistance-helper does MORE THAN HALF the effort. [place] lifts or holds trunk or limbs and provides more than half the effort. 2-Rogejgcwu-azfoyf does ALL the effort. Patient does none of the effort to complete the activity. Or, the assistance of 2 or more helpers is required for the patient to complete the activity. If activity was not attempted, code reason: 7-Patient Refused. 9-Not Applicable-not attempted and the patient did not perform the activity before the current illness, exacerbation or injury. 10-Not Attempted due to Environmental Limitations-(lack of equipment, weather restraints, etc.). 88-Not Attempted due to Medical Conditions or Safety Concerns. Weight Bearing Right Lower Extremity: Right Full Weight Bearing Left Lower Extremity: Left Weight Bearing/Tolerated No weight through left wrist Exercises Seated Therapy Exercises: Ankle pumps, Long arc quads, Hip flexion Seated Reps: 15 (x 2 sets) Assessment Patient remains up in recliner per her request. Increase activity as tolerated by patient. PT Custodial Goals [place]rel[place] Inspector Goals PT Custodial Goals Time Frame: Sep 14, 2021 Roll Left & Right (QC): 5 Sit to Lying (QC): 5 Lying-Sitting on Side/Bed(QC): 5 Sit to Stand (QC): 5 Chair/Qrm-im-Rvlkb Xfer(QC): 5 Toilet Transfer (QC): 5 Car Transfer (QC): 5 Walk 10 feet (QC): 5 Walk 50ft with 2 Turns (QC): 5 Walk 150 ft (QC): 5 PT Plan Treatment/Plan Treatment Plan: Continue Plan of Care Treatment Plan: Bed Mobility, Education, Functional Activity Sheyla, Functional Strength, Gait, Safety, Therapeutic Exercise, Transfers Treatment Duration: Sep 14, 2021 Frequency: 11 times per week Estimated Hrs Per Day: .5 hour per day Patient and/or Family Agrees t: Yes Time/GCodes Time In: 1300 Time Out: 1316 Total Billed Treatment Time: 16 Total Billed Treatment 1 visit EX 16 min ARABELLA SANFORD PT Aug 26, 2021 13:59
--- NOTE | 2021-08-26 15:33 | Progress Note - Cardiology ---
Cardiology SOAP Progress Note Subjective: Gen malaise No cp or palp or syncope Short of breath with activity No focal weakness No n/v/d Objective: I&O/Vital Signs 08/26/21 08/26/21 08/26/21 08/26/21 03:30 04:00 04:00 04:00 Temp 36.1 36.1 Pulse 108 Resp 15 B/P (MAP) 93/61 Pulse Ox 96 95 O2 Delivery Nasal Cannula Nasal Cannula Nasal Cannula O2 Flow Rate 2.00 2.00 2.00 08/26/21 08/26/21 08/26/21 08/26/21 05:00 06:00 06:40 07:00 Pulse 104 106 111 108 Resp 17 16 21 B/P (MAP) 106/64 99/47 82/56 Pulse Ox 97 97 96 O2 Delivery Nasal Cannula Nasal Cannula Nasal Cannula O2 Flow Rate 2.00 2.00 2.00 08/26/21 08/26/21 08/26/21 08/26/21 07:06 07:50 08:00 08:00 Temp 36.1 Pulse 104 Resp 18 B/P (MAP) 107/47 Pulse Ox 96 95 95 O2 Delivery Nasal Cannula Nasal Cannula Nasal Cannula O2 Flow Rate 2.00 2.00 2.00 08/26/21 08/26/21 08/26/21 08/26/21 09:00 10:00 10:59 11:00 Pulse 105 120 82 Resp 22 18 21 B/P (MAP) 102/89 101/56 99/64 Pulse Ox 94 94 95 95 O2 Delivery Nasal Cannula Nasal Cannula Nasal Cannula Nasal Cannula O2 Flow Rate 2.00 2.00 2.00 2.00 08/26/21 08/26/21 08/26/21 08/26/21 12:00 12:34 12:35 13:10 Temp 36.6 Pulse 93 93 Pulse Ox 95 O2 Delivery Nasal Cannula O2 Flow Rate 2.00 08/26/21 00:00 Intake Total 2960 ml Output Total 1300 ml Balance 1660 ml Weight (Pounds): 175 Weight (Ounces): 0.0 Weight (Calculated Kilograms): 79.728325 Constitutional: AAO x 3, well-developed, well-nourished Respiratory: No accessory muscle use; other (good, bilateral air entry) Cardiovascular: irregularly irregular, tachycardia, S1 and S2, systolic murmur (soft ALEXANDER at card base) Gastrointestional: No tender; soft; No guarding, No rebound; audible bowel sounds Extremities: No clubbing, No cyanosis, No significant edema Neurologic/Psychiatric: oriented x 3, other (moves all limbs equally) Skin: normal color, warm/dry Results/Procedures: Labs Laboratory Tests 08/26/21 05:45: White Blood Count 12.5H, Red Blood Count 2.56L, Hemoglobin 7.6L, Hematocrit 23L, Mean Corpuscular Volume 91, Mean Corpuscular Hemoglobin 30, Mean Corpuscular Hemoglobin Concent 33, Red Cell Distribution Width 13.5, Platelet Count 145, Mean Platelet Volume 9.4, Immature Granulocyte % (Auto) 1, Neutrophils (%) (Auto) 77H, Lymphocytes (%) (Auto) 13, Monocytes (%) (Auto) 8, Eosinophils (%) (Auto) 1, Basophils (%) (Auto) 0, Neutrophils # (Auto) 9.7H, Lymphocytes # (Auto) 1.6, Monocytes # (Auto) 1.0, Eosinophils # (Auto) 0.1, Basophils # (Auto) 0.0, Immature Granulocyte # (Auto) 0.1, Percent Immature Platelet Fraction 2.0, Sodium Level 135, Potassium Level 4.8, Chloride Level 104, Carbon Dioxide Level 23, Anion Gap 8, Blood Urea Nitrogen 18, Creatinine 0.71, Estimat Glomerular Filtration Rate 81, BUN/Creatinine Ratio 25, Glucose Level 116H, Calcium Level 8.3L, Corrected Calcium 9.5, Phosphorus Level 2.5, Magnesium Level 2.0, Total Bilirubin 0.4, Aspartate Amino Transf (AST/SGOT) 40H, Alanine Aminotransferase (ALT/SGPT) 39, Alkaline Phosphatase 73, Total Protein 4.8L, Albumin 2.5L Laboratory Tests 08/25/21 04:55 08/26/21 05:45 A/P: Assessment: PAF with RVR - CHADSVASc score 3 - Echo on 08-26-21: LVEF 55-60%. There were no regional wall motion abnormalities identified. Pulmonary systolic pressure is in the range of 30 mm Hg to 35 mm Hg. S/p nonsyncopal fall on 08/21/2021 - Intramedullary nailing of left intertrochanteric femur fracture on 08/22/2021 - splint L wrist on 08/22/21 H/o hypertension - currently relatively hypotensive H/o hyperlipidemia H/o hypothyroidism Plan: * Heart rate remains relatively fast and administration of rate-controlling agents is limited on account of low bp * We recommend JOANIE (to exclude intracardiac thrombus) followed by elec CV. I had a long and detailed discussion with her and her and one of their daughters regarding the treatment options and the option of JOANIE and cardioversion. Questions were answered in detail. She is considering her options YUNIOR VICTOR MD FACP FAC CCDS Aug 26, 2021 15:33
[2021-08-26] MEDS: SIMvastatin 20 MG (ZOCOR) TAB PO SCH (21:00)
[2021-08-26] MEDS: LATANOPROST 0.005% (XALATAN) OPHTH SOLN 2.5 ML OU SCH (21:01)
[2021-08-27 05:03] LABS: BASOPHILS % (AUTO) 0 % (0-10); EOSINOPHILS # (AUTO) 0.1 10^3/uL (0.0-0.3); EOSINOPHILS % (AUTO) 1 % (0-10); HEMATOCRIT 26 % (35-52); HEMOGLOBIN 8.3 g/dL (11.5-16.0); LYMPHOCYTES # (AUTO) 1.9 10^3/uL (1.0-4.0); LYMPHOCYTES % (AUTO) 14 % (12-44); MEAN CORPUSCULAR HEMOGLOBIN 29 pg (25-34); MEAN CORPUSCULAR HGB CONC 32 g/dL (32-36); MEAN CORPUSCULAR VOLUME 92 fL (80-99); MEAN PLATELET VOLUME 10.1 fL (9.0-12.2); MONOCYTES # (AUTO) 1.1 10^3/uL (0.0-1.0); MONOCYTES % (AUTO) 8 % (0-12); NEUTROPHILS # (AUTO) 10.8 10^3/uL (1.8-7.8); NEUTROPHILS % (AUTO) 77 % (42-75); PLATELET COUNT 183 10^3/uL (130-400); WHITE BLOOD COUNT 14.1 10^3/uL (4.3-11.0)
[2021-08-27 05:17] LABS: ALBUMIN 2.6 GM/DL (3.2-4.5); POTASSIUM 4.6 MMOL/L (3.6-5.0)
[2021-08-27 05:18] LABS: CALCIUM 8.5 MG/DL (8.5-10.1)
[2021-08-27 05:20] LABS: TOTAL PROTEIN 5.1 GM/DL (6.4-8.2)
[2021-08-27 05:21] LABS: BILIRUBIN,TOTAL 0.5 MG/DL (0.1-1.0)
[2021-08-27 05:23] LABS: CREATININE SERUM 0.6 MG/DL (0.60-1.30); PHOSPHORUS 2.6 MG/DL (2.3-4.7)
[2021-08-27 05:26] LABS: MAGNESIUM 2.1 MG/DL (1.6-2.4)
[2021-08-27] MEDS: POTASSIUM CL 10MEQ/50ML IVPB 50 ML IV SCH (05:30)
[2021-08-27] MEDS: CYANOCOBALAMIN 1,000 MCG (VITAMIN B-12) TABLET PO SCH (05:31)
[2021-08-27] MEDS: KCL 20 MEQ TAB (K-DUR) PO SCH (05:31)
[2021-08-27] MEDS: MAGNESIUM 1 GM/100 ML IVPB 100 ML IV SCH (05:31)
[2021-08-27] MEDS: CEFEPIME INJECTION 1,000 MG in WATER (STERILE) FOR INJECTION 10 ML IV SCH ×4 (05:42→23:59)
[2021-08-27] MEDS: RT-ALBUTEROL SULF 2.5 MG/3 ML PRE-MIX VIAL INH SCH ×4 (07:50→18:47)
[2021-08-27] MEDS ORDERED: LIDOCAINE 2% VISCOUS 15 ML UDC ONE (07:58)
[2021-08-27] MEDS ORDERED: NS IV 500 ML 500 ML ONE (07:59)
[2021-08-27] MEDS ORDERED: MIDAZOLAM 2 MG/2 ML (VERSED) VIAL ONE (08:34)
[2021-08-27] MEDS ORDERED: AMIODARONE FOR BOLUS 150 MG in D5W 100 ML IVPB 100 ML IV ONE (09:00)
[2021-08-27] MEDS: AMIODARONE INJECTION 450 MG in D5W IV SOLUTION (EXCEL) 250 ML IV SCH ×2 (09:19→17:11)
[2021-08-27] MEDS ORDERED: proPOfol 200 MG/20 ML (DIPRIVAN) VIAL IV ONE (10:37)
--- NOTE | 2021-08-27 10:48 | Tele-ICU Progress Note ---
Subjective Date Seen by a Provider: Aug 27, 2021 Time Seen by a Provider: 10:48 Sepsis Event Evaluation Height, Weight, BMI Height: 5'9.00" Weight: 175lbs. 0.0oz. 79.393853tr; 32.67 BMI Method:Stated Exam Exam Patient acknowledged, consented, and participated in this virtual visit which was conducted using real time audio/video Vital Signs Date Time Temp Pulse Resp B/P (MAP) Pulse Ox O2 Delivery O2 Flow Rate FiO2 08/27/21 09:03 107 119/65 08/27/21 07:54 36.0 08/27/21 07:50 95 Nasal Cannula 1.50 08/27/21 07:00 131 08/27/21 06:00 135 19 129/53 94 Nasal Cannula 2.00 08/27/21 05:00 112 20 129/79 95 Nasal Cannula 2.00 08/27/21 04:03 36.3 08/27/21 04:00 134 19 124/63 94 Nasal Cannula 2.00 08/27/21 04:00 92 Nasal Cannula 2.00 08/27/21 03:00 123 18 120/49 95 Nasal Cannula 2.00 08/27/21 02:00 111 17 112/56 94 Nasal Cannula 2.00 08/27/21 01:00 120 08/27/21 01:00 120 17 124/69 94 Nasal Cannula 2.00 08/27/21 00:00 109 17 115/100 96 Nasal Cannula 2.00 08/26/21 23:59 92 Nasal Cannula 2.00 08/26/21 23:00 87 16 97/58 95 Nasal Cannula 2.00 08/26/21 22:00 94 16 125/63 97 Nasal Cannula 2.00 08/26/21 21:42 106 14 115/55 97 Nasal Cannula 2.00 08/26/21 20:00 92 Nasal Cannula 2.00 08/26/21 19:42 36.1 08/26/21 19:24 116 23 136/61 90 Nasal Cannula 2.00 08/26/21 19:00 94 Nasal Cannula 1.50 08/26/21 19:00 103 08/26/21 16:44 36.1 08/26/21 16:30 117 28 115/66 Nasal Cannula 2.00 08/26/21 16:00 95 Nasal Cannula 2.00 08/26/21 15:29 92 Nasal Cannula 2.00 08/26/21 13:10 36.6 08/26/21 12:35 93 08/26/21 12:34 93 08/26/21 12:00 95 Nasal Cannula 2.00 08/26/21 11:00 82 21 99/64 95 Nasal Cannula 2.00 08/26/21 10:59 95 Nasal Cannula 2.00 I & O 08/27/21 07:00 Intake Total 2280 ml Output Total 3925 ml Balance -1645 ml Height & Weight Height: 5'9.00" Weight: 175lbs. 0.0oz. 79.643310dz; 32.67 BMI Method:Stated General Appearance: No Apparent Distress, WD/WN HEENT: PERRL/EOMI, Moist Mucous Membranes Neck: Normal Inspection, Supple Respiratory: Rales Cardiovascular: Irregularly Irregular Capillary Refill: Less Than 3 Seconds Gastrointestinal: normal bowel sounds, non tender Extremity: No Calf Tenderness, No Pedal Edema Neurologic/Psychiatric: Alert, Oriented x3, Normal Mood/Affect Skin: Normal Color, Warm/Dry Results Lab Laboratory Tests 08/26/21 05:45 08/27/21 04:13 08/27/21 04:15 Assessment/Plan Assessment/Plan (Tele-ICU Physician , Progress Note ) Available chart/ vitals / labs / Images reviewed Video assessment done using teleICU camera, rest of exam as per RN Discussed with RN , EXAM PER RN Events overnight : Afebrile I/O = even Drips: Pressors: , hemodynamically stable Consultants: Hospital course: 08/21) 70F Admitted s/p fall left hip fracture, ?UTI (08/22) S/P ORIF left Hip. (08/24) Increase in WBC. started on antibiotics (08/25) Transferred to ICU for New Atrial Fibrillation (RVR). Cardizem drip started. Hypotension, cardizem stopped. Fluids given 08/27 - followed by elec CV - back to afib A/P PAF with RVR ( no PE ) - PER CARDS- dig - echo - 08-26-21: LVEF 55-60%. PRSP 30-35 -08/27- EE followed by elec CV - back to a fib - amio gtt AC - eliquis Acute rersp failure - on 2 l O2 now , CT 08/24 - no PE - PNA and small effusions RLL PNA ( by CT ) - on empiric abx - PNA vs UTI -cefepime S/p nonsyncopal fall on 08/21/2021 - Intramedullary nailing of left intertrochanteric femur fracture on 08/22/2021 - splint L wrist on 08/22/21 - pain control Gallstone in the neck of the gallbladder with mildly distended gallbladder by CT - monitor symptoms Lines : periph (Central Line Necessity Reviewed) [place]oud: + - to remove today OG: Nutrition: PO Analgesia: PO Anxiety/ delirium VTE Prophylaxis: eliquis Stress Ulcer Prophylaxis: po Plans in collaboration with bedside consultants and IM MDs. Discussed with RN to reach out if any questions or concerns A total of 25minutes of critical care time was devoted to this patient today, required to treat and/or prevent further deterioration of critical care condition ( as above) ANGELIQUE ARCE MD Aug 27, 2021 10:48
--- NOTE | 2021-08-27 11:10 | Physical Therapy Progress Note ---
Therapy Progress Note Patient on Hold this a.m. per RN secondary to s/p JOANIE and cardioversion with patient back in A-fib with HR 170's. PT will consult RN in p.m. for POC on this date. ARABELLA SANFORD PT Aug 27, 2021 11:10
[2021-08-27] MEDS: TIMOLOL MALEATE 0.5% 5 ML (TIMOPTIC) BTL OU SCH ×2 (12:03→21:20)
[2021-08-27] MEDS: CALCIUM CARB + VIT D 600 MG (CALCARB + D) TAB PO SCH (12:03)
[2021-08-27] MEDS: APIXABAN 5 MG (ELIQUIS) TABLET PO SCH ×2 (12:04→21:20)
[2021-08-27] MEDS: KCL 10 MEQ TAB (MICRO K) PO SCH (12:04)
--- NOTE | 2021-08-27 12:04 | Progress Note ---
Progress Note Progress Notes/Assess & Plan Date Seen 08/27/21 Time Seen by Provider: 08:30 Critical Care Critically Ill Patient Focused Exam Sepsis Stage: Sepsis (Sepsis Risk; BP > 90, ongoing infection) Respiratory: No Accessory Muscle Use, No Respiratory Distress Cardiovascular: Irregularly Irregular, Tachycardia Skin: normal color, warm/dry Diagnosis/Problems Diagnosis/Problems (1) Osteoporosis (2) Wrist fracture Status: Acute (3) Hip fracture Status: Acute (4) Hypothyroidism (5) Essential (primary) hypertension (6) HLD (hyperlipidemia) (7) NORMA Langley Aug 27, 2021 12:03
[2021-08-27] MEDS: SENNA W/DOCUSATE (SENOKOT S) TABLET PO SCH ×2 (12:05→21:20)
[2021-08-27] MEDS: polyethylene glycoL POWDER 17 GM (MIRALAX) PACK PO SCH ×2 (12:05→21:20)
[2021-08-27] MEDS: VITAMIN D3 125 MCG (5,000 UNITS) CAPSULE PO SCH (12:05)
[2021-08-27] MEDS: PANTOPRAZOLE 40 MG (PROTONIX) TAB PO SCH (12:05)
--- NOTE | 2021-08-27 12:22 | Progress Note ---
NORTHNORMA 08/27/21 1222: Subjective Date Seen by a Provider: Aug 27, 2021 Time Seen by a Provider: 08:30 Subjective/Events-last exam CC/HPI: Jane Rudolph is a 70 yo female, previously in rehab, who presents for evaluation and management of A Fib with RVR Appeared somnolent d/t recent sedation Accompanied by Has appetite Had bowel movement last night (08/26/21) Denies pain other than in L arm and hip JOANIE and cardioversion performed today by Dr. Crawley (08/27/21) Echo demonstrated LVEF (55-60%) A-fib returned shortly after cardioversion Continues to require 1.5 L/ min of oxygen via NC Started amiodarone, not rate controlled PT held d/t recent sedation, will return tomorrow to determine POC Review of Systems General: Fatigue Musculoskeletal: hand pain, leg pain Focused Exam Sepsis Stage: Sepsis Reason for ruling out sepsis: Sepsis risk, BP >90, Ongoing infection Respiratory: No Accessory Muscle Use, No Respiratory Distress Cardiovascular: Irregularly Irregular, Tachycardia Skin: normal color Objective Exam Last Set of Vital Signs Vital Signs Date Time Temp Pulse Resp B/P (MAP) Pulse Ox O2 Delivery O2 Flow Rate FiO2 08/27/21 12:00 36.8 08/27/21 10:46 96 Nasal Cannula 1.50 08/27/21 10:00 112 19 109/80 08/25/21 13:26 28 Capillary Refill : Less Than 3 Seconds I&O Intake and Output 08/27/21 00:00 Intake Total 3665 ml Output Total 3850 ml Balance -185 ml Intake Oral 2655 ml IV Total 1010 ml Output Urine Total 3850 ml General: Cooperative Lungs: Clear to Auscultation Psych/Mental Status: Mental Status NL Results Lab Laboratory Tests 08/27/21 04:13: White Blood Count 14.1H, Red Blood Count 2.82L, Hemoglobin 8.3L, Hematocrit 26L, Mean Corpuscular Volume 92, Mean Corpuscular Hemoglobin 29, Mean Corpuscular Hemoglobin Concent 32, Red Cell Distribution Width 13.6, Platelet Count 183, Mean Platelet Volume 10.1, Immature Granulocyte % (Auto) 1, Neutrophils (%) (Auto) 77H, Lymphocytes (%) (Auto) 14, Monocytes (%) (Auto) 8, Eosinophils (%) (Auto) 1, Basophils (%) (Auto) 0, Neutrophils # (Auto) 10.8H, Lymphocytes # (Auto) 1.9, Monocytes # (Auto) 1.1H, Eosinophils # (Auto) 0.1, Basophils # (Auto) 0.0, Immature Granulocyte # (Auto) 0.1 08/27/21 04:15: Sodium Level 133L, Potassium Level 4.6, Chloride Level 102, Carbon Dioxide Level 22, Anion Gap 9, Blood Urea Nitrogen 15, Creatinine 0.60, Estimat Glomerular Filtration Rate 99, BUN/Creatinine Ratio 25, Glucose Level 114H, Calcium Level 8.5, Corrected Calcium 9.6, Phosphorus Level 2.6, Magnesium Level 2.1, Total Bilirubin 0.5, Aspartate Amino Transf (AST/SGOT) 46H, Alanine Aminotransferase (ALT/SGPT) 51, Alkaline Phosphatase 98, Total Protein 5.1L, Albumin 2.6L Meds Item Value Date Time Hemoglobin 7.6 g/dL L 08/26/21 0545 Alkaline Phosphatase 98 U/L 08/27/21 0415 Cefepime HCl 1000 10 ml @ 200 mls/hr 08/25/21 0600 mg/Sterile Water Q6HR/IV 08/27/21 0542 Amiodarone HCl 259 ml @ 0 mls/hr 08/27/21 0900 450 mg/Dextrose/ Q0M/IV 08/27/21 0919 Water Bisacodyl 10 mg 08/26/21 0945 (Dulcolax DAILY PRN/DE Suppository) Cyanocobalamin 1,000 mcg 08/26/21 0945 (Vitamin B-12 DAILY@0700/PO Tablet) Iron Sucrose 200 mg 08/26/21 0945 (Venofer Q48H@09/IV 08/26/21 1054 Injection) Diltiazem HCl 240 mg 08/26/21 0900 (Cardizem Cd 24 DAILY/PO 08/27/21 1203 Hr Capsule) Lactated Ringer's 1,000 ml @ 100 mls/hr 08/25/21 2145 Albuterol Sulfate 2.5 mg 08/25/21 1700 (Proventil Q2HR PRN/INH Pre-Mix Nebs (Rt)) Latanoprost 1 ml 08/25/21 2100 (Xalatan 0.005% HS/OU 08/26/21 210 Ophthalmic Solution) Simvastatin 20 mg 08/25/21 2100 (Zocor Tablet) HS/PO 08/26/21 2100 Albuterol Sulfate 2.5 mg 08/25/21 1500 (Proventil RTQID/INH 08/27/21 1046 Pre-Mix Nebs (Rt)) Polyethylene 17 gm 08/25/21 0900 Glycol BID/PO (Miralax 17 Gm Packet) Timolol Maleate 1 DROP 08/25/21 0900 (Timoptic 0.5% BID/OU 08/27/21 1203 Ophthalmic Solution) Senna 1 ea 08/25/21 0900 (Senokot S BID/PO Tablet) Potassium Chloride 10 meq 08/25/21 0900 (Klor Con Tablet) DAILY/PO 08/27/21 1204 Pantoprazole 40 mg 08/25/21 0900 Sodium DAILY/PO 08/27/21 1205 (Protonix Tablet) Cholecalciferol 125 mcg 08/25/21 0900 (Vitamin D3 DAILY/PO 08/27/21 1205 Capsule/Tablet) Apixaban 5 mg 08/25/21 0900 (Eliquis Tablet) BID/PO 08/27/21 1204 Calcium/Vitamin D 600 mg 08/25/21 0900 (Calcarb 600 + D DAILY/PO 08/27/21 1203 Tablet) Potassium Chloride 50 ml @ 0 mls/hr 08/25/21 0600 Magnesium Sulfate/ 100 ml @ 0 mls/hr 08/25/21 0600 Dextrose DAILY@0600/IV Potassium Chloride 40 meq 08/25/21 0600 (K Dur Tablet) DAILY@0600/PO Morphine Sulfate 5 mg 08/25/21 0315 (morphine Q2H PRN/IVP INJECTION) Hydralazine HCl 5 mg 08/25/21 0315 (Apresoline Q4H PRN/IV Injection) Guaifenesin/ 10 ml 08/25/21 0315 Codeine Phosphate Q4H PRN/PO (Robitussin Ac (Codeine) Syrup) Sodium Chloride 10 ml 08/25/21 0315 (Catheter Flush NEEDED PRN/IV Syringe) Diphenhydramine 25 mg 08/25/21 0315 HCl Q6H PRN/PO (Benadryl Tablet) Ondansetron HCl 4 mg 10/10/21 0315 (Zofran Oral Q6H PRN/PO Dissolve Tablet) Ondansetron HCl 8 mg 08/25/21 0315 (Zofran Q6H PRN/IVP Injection (Sdv)) Alprazolam 0.25 mg 08/25/21314 (Xanax Tablet) Q8H PRN/PO Acetaminophen 650 mg 08/25/215 (Tylenol Tablet) Q4H PRN/PO 08/26/21 0259 Bisacodyl 10 mg 08/25/21314 (Dulcolax DAILY PRN/DE Suppository) Docusate Sodium 100 mg 08/25/21314 (Colace Capsule) BID PRN/PO Acetaminophen/ 1 ea 08/25/21314 Hydrocodone Bitart Q4H PRN/PO 08/26/21 1831 (Lortab 5 Mg Tablet) Calcium Carbonate 500 mg 08/25/21314 (Antacid TID PRN/PO Chewable Tablet) Lactulose 10 gm 08/25/21314 (Enulose Oral BID PRN/PO Solution) Loperamide HCl 2 mg 08/25/21314 (Imodium Tablet) PRN PRN/PO Melatonin 3 mg 08/25/21314 (Melatonin HS PRN/PO Tablet) Sodium 1 ea 08/25/21314 Biphosphate/ BID PRN/DE Sodium Phosphate (Fleet Enema Adult) Radiology JOANIE 08/27/2021, 7:[address] Crawley Normal bi-ventricular size and function, LVEF: 60% Normal-appearing aortic, tricuspid, and mitral valve leaflets Mild mitral and tricuspid regurgitation Redundant interatrial septum with patent foramen ovale and mild left to right shunt No evidence of intracardiac thrombus Procedures Procedures Cardioversion performed by Dr. Crawley (08/27/21) Assessment/Plan Assessment/Plan Assess & Plan/Chief Complaint New onset a-fib Amiodarone started, not yet rate-controlled Eliquis for stroke ppx Telemetry Continue to monitor Lobar pneumonia involving the right lower lobe and dependent right upper lobe Continue Cefepime Wean oxygen as able Anemia (normo-cytic) Hgb improved to 8.3 Continue to monitor Constipation Continue bowel regimen Comminuted intertrochanteric left femoral fracture distal radial fracture osteoporosis Continue pain regimen PT/OT already on alendronate and calcium supplement at home HTN HLD Hold antihypertensives due to relative hypotension on cardizem BP stabilized at 127/78 this morning, continue to monitor Continue statin Hypothyroidism TSH: 0.13, hold levothyroxine for now Diagnosis/Problems Diagnosis/Problems (1) Osteoporosis (2) Wrist fracture Status: Acute (3) Hip fracture Status: Acute (4) Hypothyroidism (5) Essential (primary) hypertension (6) HLD (hyperlipidemia) (7) Afib Clinical Quality Measures Admission Status Admission Status: Inpatient Order (span 2 midnights) Reason for Inpatient Admission: PAF with RVR, Penumonia CARMELITA VAZ DO 08/28/21 0503: Subjective Subjective/Events-last exam Updated patient and on the unsuccessful cardioversion Maintain on anticoagulation Amiodarone drip maintained Lungs are very coarse May need swing bed before possible inpatient rehab due to questionable motivation even when she was on rehab Unable to absorb information at times cognition appears to be slightly deficient Review of Systems General: Fatigue Pulmonary: Dyspnea, Cough Objective Exam General: Alert Lungs: Other (Coarse breath sounds throughout all atkins) Heart: Other (Irregular and tachycardic) Assessment/Plan Assessment/Plan Assess & Plan/Chief Complaint Amiodarone drip Appreciate cardiology PT and OT Chest x-ray in the morning Follow labs Antibiotics Hold levothyroxine due to TSH 0.13 indicating possible toxicity placing her at risk for A. fib issues Supervisory-Addendum Brief Verification & Attestation Participated in pt care: history, MDM, physical Personally performed: exam, history, MDM, supervision of care Care discussed with: Medical Student Procedures: n/a Results interpretation: Verified all documentation Verification and Attestation of Medical Student E/M Service A medical student performed and documented this service in my presence. I reviewed and verified all information documented by the medical student and made modifications to such information, when appropriate. I personally performed the physical exam and medical decision making. Carmelita Vaz, Aug 28, 2021,05:03 NORMA KAT Aug 27, 2021 12:22 CARMELITA VAZ DO Aug 28, 2021 05:03
--- NOTE | 2021-08-27 13:00 | Progress Note - Cardiology ---
Cardiology SOAP Progress Note Subjective: No new symptoms Chronic L shoulder/scapular pain, worse with motion at the shoulder No cp or palp or syncope Gen malaise present No n/v/d Objective: I&O/Vital Signs 08/27/21 08/27/21 08/27/21 08/27/21 01:00 01:00 02:00 03:00 Pulse 120 120 111 123 Resp 17 17 18 B/P (MAP) 124/69 112/56 120/49 Pulse Ox 94 94 95 O2 Delivery Nasal Cannula Nasal Cannula Nasal Cannula O2 Flow Rate 2.00 2.00 2.00 08/27/21 08/27/21 08/27/21 08/27/21 04:00 04:00 04:03 05:00 Temp 36.3 Pulse 134 112 Resp 19 20 B/P (MAP) 124/63 129/79 Pulse Ox 92 94 95 O2 Delivery Nasal Cannula Nasal Cannula Nasal Cannula O2 Flow Rate 2.00 2.00 2.00 08/27/21 08/27/21 08/27/21 08/27/21 06:00 07:00 07:00 07:50 Pulse 135 131 123 Resp 19 17 B/P (MAP) 129/53 122/70 Pulse Ox 94 97 95 O2 Delivery Nasal Cannula Nasal Cannula Nasal Cannula O2 Flow Rate 2.00 2.00 1.50 08/27/21 08/27/21 08/27/21 08/27/21 07:54 08:00 09:00 09:03 Temp 36.0 Pulse 140 96 107 Resp 19 19 B/P (MAP) 127/94 101/54 119/65 Pulse Ox 95 95 O2 Delivery Nasal Cannula Nasal Cannula O2 Flow Rate 2.00 2.00 08/27/21 08/27/21 08/27/21 08/27/21 10:00 10:46 11:00 12:00 Temp 36.8 Pulse 112 134 Resp 19 20 B/P (MAP) 109/80 120/61 Pulse Ox 90 96 92 O2 Delivery Nasal Cannula Nasal Cannula Nasal Cannula O2 Flow Rate 2.00 1.50 2.00 08/27/21 12:00 Pulse 107 Resp 17 B/P (MAP) 127/78 Pulse Ox 98 O2 Delivery Nasal Cannula O2 Flow Rate 2.00 08/26/21 23:59 Intake Total 1900 ml Output Total 1725 ml Balance 175 ml Weight (Pounds): 175 Weight (Ounces): 0.0 Weight (Calculated Kilograms): 79.463375 Constitutional: AAO x 3, well-developed, well-nourished Respiratory: No accessory muscle use; other (good, bilateral air entry) Cardiovascular: irregularly irregular, tachycardia, S1 and S2, systolic murmur (soft ALEXANDER at card base) Gastrointestional: No tender; soft; No guarding, No rebound; audible bowel sounds Extremities: No clubbing, No cyanosis, No significant edema Neurologic/Psychiatric: oriented x 3, other (moves all limbs equally) Skin: normal color Results/Procedures: Labs Laboratory Tests 08/27/21 04:13: White Blood Count 14.1H, Red Blood Count 2.82L, Hemoglobin 8.3L, Hematocrit 26L, Mean Corpuscular Volume 92, Mean Corpuscular Hemoglobin 29, Mean Corpuscular Hemoglobin Concent 32, Red Cell Distribution Width 13.6, Platelet Count 183, Mean Platelet Volume 10.1, Immature Granulocyte % (Auto) 1, Neutrophils (%) (Auto) 77H, Lymphocytes (%) (Auto) 14, Monocytes (%) (Auto) 8, Eosinophils (%) (Auto) 1, Basophils (%) (Auto) 0, Neutrophils # (Auto) 10.8H, Lymphocytes # (Auto) 1.9, Monocytes # (Auto) 1.1H, Eosinophils # (Auto) 0.1, Basophils # (Auto) 0.0, Immature Granulocyte # (Auto) 0.1 08/27/21 04:15: Sodium Level 133L, Potassium Level 4.6, Chloride Level 102, Carbon Dioxide Level 22, Anion Gap 9, Blood Urea Nitrogen 15, Creatinine 0.60, Estimat Glomerular Filtration Rate 99, BUN/Creatinine Ratio 25, Glucose Level 114H, Calcium Level 8.5, Corrected Calcium 9.6, Phosphorus Level 2.6, Magnesium Level 2.1, Total Bilirubin 0.5, Aspartate Amino Transf (AST/SGOT) 46H, Alanine Aminotransferase (ALT/SGPT) 51, Alkaline Phosphatase 98, Total Protein 5.1L, Albumin 2.6L Laboratory Tests 08/26/21 05:45 08/27/21 04:13 08/27/21 04:15 A/P: Assessment: PAF with RVR - CHADSVASc score 3 - Echo on 08-26-21: LVEF 55-60%. There were no regional wall motion abnormalities identified. Pulmonary systolic pressure is in the range of 30 mm Hg to 35 mm Hg - JOANIE on 08-27-21: LVEF 60%, no intracardiac thrombus, redundant interatrial septum and PFO with small L to R shunt, mild MR and TR - Electrical cardioversion on 08-27-21 successfully converted A Fib to NSR but she went back into A Fib several minutes later S/p nonsyncopal fall on 08/21/2021 - Intramedullary nailing of left intertrochanteric femur fracture on 08/22/2021 - splint L wrist on 08/22/21 H/o hypertension - currently relatively hypotensive H/o hyperlipidemia H/o hypothyroidism Plan: * Results of JOANIE and elec CV described above * Continue dilt * Continue apixaban * Add iv amiodarone * Consider elec CV again after iv amiodarone completed * Monitor labs YUNIOR VICTOR MD FACP FAC CCDS Aug 27, 2021 13:00
--- NOTE | 2021-08-27 13:47 | Physical Therapy Progress Note ---
Therapy Progress Note Patient declined PT this p.m. stating, "I've had enough today." PT to resume in a.m. 1 ref ([id number]) ARABELLA SANFORD PT Aug 27, 2021 13:47
--- NOTE | 2021-08-27 14:52 | Occ Therapy Progress Note ---
Therapy Progress Note Pt on hold this am for JOANIE and cardioversion. Attempt again in afternoon. Pt refuses any OOB/EOB activity as she reports having "too much diarrhea." Nita Buchanan OT Aug 27, 2021 14:52
--- NOTE | 2021-08-27 20:41 | OPERATIVE REPORT ---
DATE OF SERVICE: 08/27/2021 EXTERNAL ELECTRICAL CARIOVERSION REPORT PREOPERATIVE DIAGNOSIS: Atrial fibrillation. POSTOPERATIVE DIAGNOSIS: Sinus rhythm. PROCEDURE: External electrical cardioversion with 120 joules synchronized, biphasic shock. INDICATIONS: The patient is a 70-year-old lady who has atrial fibrillation with a rapid ventricular response that has been difficult to control. OF PROCEDURE: Informed consent was obtained for transesophageal echocardiography and external electrical cardioversion. Transesophageal echocardiography did not indicate any significant intracardiac thrombus. We were able to restore sinus rhythm with a shock was delivered through external patches. It was 120 joules of synchronized shock. Job ID: [id number] DocumentID: [id number] Dictated Date: 08/27/2021 13:02:12 [employer]ist Date: 08/27/2021 20:41:33 Dictated By: YUNIOR VICTOR MD, MA, FACP, FACC,
[2021-08-27] MEDS: LATANOPROST 0.005% (XALATAN) OPHTH SOLN 2.5 ML OU SCH (21:20)
[2021-08-27] MEDS: SIMvastatin 20 MG (ZOCOR) TAB PO SCH (21:20)
[2021-08-27] MEDS: HYDROcodone/APAP 5 MG/325 MG (LORTAB) TAB PO PRN (21:36)
[2021-08-28] MEDS: LACTATED RINGERS 1,000 ML IV SCH ×3 (00:31→19:51)
[2021-08-28 05:03] LABS: BASOPHILS % (AUTO) 0 % (0-10); EOSINOPHILS # (AUTO) 0.1 10^3/uL (0.0-0.3); EOSINOPHILS % (AUTO) 1 % (0-10); HEMATOCRIT 25 % (35-52); HEMOGLOBIN 8.1 g/dL (11.5-16.0); LYMPHOCYTES # (AUTO) 2.2 10^3/uL (1.0-4.0); LYMPHOCYTES % (AUTO) 17 % (12-44); MEAN CORPUSCULAR HEMOGLOBIN 29 pg (25-34); MEAN CORPUSCULAR HGB CONC 32 g/dL (32-36); MEAN CORPUSCULAR VOLUME 91 fL (80-99); MEAN PLATELET VOLUME 9.7 fL (9.0-12.2); MONOCYTES # (AUTO) 1.4 10^3/uL (0.0-1.0); MONOCYTES % (AUTO) 11 % (0-12); NEUTROPHILS # (AUTO) 8.7 10^3/uL (1.8-7.8); NEUTROPHILS % (AUTO) 69 % (42-75); PLATELET COUNT 207 10^3/uL (130-400); WHITE BLOOD COUNT 12.7 10^3/uL (4.3-11.0)
[2021-08-28 05:29] LABS: ALBUMIN 2.5 GM/DL (3.2-4.5); POTASSIUM 4.5 MMOL/L (3.6-5.0)
[2021-08-28 05:30] LABS: CALCIUM 8.4 MG/DL (8.5-10.1)
[2021-08-28 05:32] LABS: TOTAL PROTEIN 5.1 GM/DL (6.4-8.2)
[2021-08-28 05:33] LABS: BILIRUBIN,TOTAL 0.5 MG/DL (0.1-1.0)
[2021-08-28 05:35] LABS: CREATININE SERUM 0.64 MG/DL (0.60-1.30); PHOSPHORUS 3.1 MG/DL (2.3-4.7)
[2021-08-28 05:38] LABS: MAGNESIUM 2.3 MG/DL (1.6-2.4)
[2021-08-28] MEDS: POTASSIUM CL 10MEQ/50ML IVPB 50 ML IV SCH (05:57)
[2021-08-28] MEDS: CEFEPIME INJECTION 1,000 MG in WATER (STERILE) FOR INJECTION 10 ML IV SCH ×4 (05:57→23:52)
[2021-08-28] MEDS: KCL 20 MEQ TAB (K-DUR) PO SCH (05:58)
[2021-08-28] MEDS: MAGNESIUM 1 GM/100 ML IVPB 100 ML IV SCH (05:58)
--- NOTE | 2021-08-28 06:49 | Diagnostic Imaging Report ---
Indication: Pneumonia Upright portable chest shows normal heart size and vascularity. There is a right perihilar and basilar infiltrate. Small effusion on the right. There is no pneumothorax. IMPRESSION: Persistent right lung infiltrate which may be slightly worse compared to the 08/24/2021 study. Recommend continued follow-up. Dictated by: Dictated on workstation # [id number]
[2021-08-28] MEDS: RT-ALBUTEROL SULF 2.5 MG/3 ML PRE-MIX VIAL INH SCH ×4 (07:14→20:23)
[2021-08-28] MEDS: CYANOCOBALAMIN 1,000 MCG (VITAMIN B-12) TABLET PO SCH (07:54)
[2021-08-28] MEDS: IRON SUCROSE 200 MG/10 ML (VENOFER) VIAL IV SCH (07:54)
[2021-08-28] MEDS: TIMOLOL MALEATE 0.5% 5 ML (TIMOPTIC) BTL OU SCH ×2 (07:54→20:41)
[2021-08-28] MEDS: APIXABAN 5 MG (ELIQUIS) TABLET PO SCH ×2 (07:55→20:42)
[2021-08-28] MEDS: VITAMIN D3 125 MCG (5,000 UNITS) CAPSULE PO SCH (07:55)
[2021-08-28] MEDS: CALCIUM CARB + VIT D 600 MG (CALCARB + D) TAB PO SCH (07:55)
[2021-08-28] MEDS: PANTOPRAZOLE 40 MG (PROTONIX) TAB PO SCH (07:55)
[2021-08-28] MEDS: KCL 10 MEQ TAB (MICRO K) PO SCH (07:55)
[2021-08-28] MEDS: polyethylene glycoL POWDER 17 GM (MIRALAX) PACK PO SCH ×2 (07:56→20:45)
[2021-08-28] MEDS: SENNA W/DOCUSATE (SENOKOT S) TABLET PO SCH ×2 (07:56→20:45)
[2021-08-28] MEDS: AMIODARONE INJECTION 450 MG in D5W IV SOLUTION (EXCEL) 250 ML IV SCH (09:17)
--- NOTE | 2021-08-28 10:39 | Physical Therapy Daily Note ---
PT Daily Note-Current Subjective Patient in bed pre tx, agrees to PT, has 4-5/10 pain in left leg. Appearance Patient in bed post tx with nurse call, phone, tray, all needs met. Mental Status Patient Orientation: Person, Place, Situation Attachments: Stroud Catheter Transfers SCALE: Activities may be completed with or without assistive devices. 9-Xvuxaecqur-qeeoivk completes the activity by him/herself with no assistance from a helper. 5-Set-up or Clean-up Assistance-helper sets up or cleans up; patient completes activity. Delia assists only prior to or following the activity. 4-Supervision or Touching Assistance-helper provides verbal cues and/or touching/steadying and/or contact guard assistance as patient completes activity. Assistance may be provided throughout the activity or intermittently. 3-Partial/Moderate Assistance-helper does LESS THAN HALF the effort. Delia lifts, holds or supports trunk or limbs, but provides less than half the effort. 2-Substantial/Maximal Assistance-helper does MORE THAN HALF the effort. Delia lifts or holds trunk or limbs and provides more than half the effort. 0-Vezgeflxv-hklclt does ALL the effort. Patient does none of the effort to complete the activity. Or, the assistance of 2 or more helpers is required for the patient to complete the activity. If activity was not attempted, code reason: 7-Patient Refused. 9-Not Applicable-not attempted and the patient did not perform the activity before the current illness, exacerbation or injury. 10-Not Attempted due to Environmental Limitations-(lack of equipment, weather restraints, etc.). 88-Not Attempted due to Medical Conditions or Safety Concerns. Roll Left & Right (QC): 2 Sit to Lying (QC): 1 Lying to Sitting/Side of Bed(Q: 2 Sit to Stand (QC): 2 Patient max assist for supine to sit, she is slightly dizzy upon sitting but recovers after a few seconds. Patient then stands with assist of 2 for about a minute or two before needing to sit, after she recovers she stands again with assist of two again for a minute or two before sitting again. Patient attempted to take a small step forward but could not. Patient's HR jumps around a lot from 100bpm to 155 bpm. Weight Bearing Right Lower Extremity: Right Full Weight Bearing Left Lower Extremity: Left Weight Bearing/Tolerated No weight through left wrist Exercises Seated Therapy Exercises: Ankle pumps, Long arc quads Seated Reps: 20 Treatments bed mobility and transfers, LE exercise Assessment Current Status: Poor Progress no ambulation yet. Patient's left leg is slightly internally rotated when supine and is resistive to putting it in a neutral position. PT Shelter Goals Shelter Goals PT Clerical Office Worker Goals Time Frame: Sep 14, 2021 Roll Left & Right (QC): 5 Sit to Lying (QC): 5 Lying-Sitting on Side/Bed(QC): 5 Sit to Stand (QC): 5 Chair/Ppn-is-Ntyfx Xfer(QC): 5 Toilet Transfer (QC): 5 Car Transfer (QC): 5 Walk 10 feet (QC): 5 Walk 50ft with 2 Turns (QC): 5 Walk 150 ft (QC): 5 PT Plan Problem List Problem List: Activity Tolerance, Functional Strength, Safety, Balance, Gait, Transfer, Bed Mobility, ROM Treatment/Plan Treatment Plan: Continue Plan of Care Treatment Plan: Bed Mobility, Education, Functional Activity Sheyla, Functional Strength, Gait, Safety, Therapeutic Exercise, Transfers Treatment Duration: Sep 14, 2021 Frequency: 11 times per week Estimated Hrs Per Day: .5 hour per day Patient and/or Family Agrees t: Yes Safety Risks/Education Patient Education: Transfer Techniques, Correct Positioning, Safety Issues Teaching Recipient: Patient Teaching Methods: Demonstration, Discussion Response to Teaching: Reinforcement Needed Time/GCodes Time In: 0942 Time Out: 1000 Total Billed Treatment Time: 18 Total Billed Treatment 1 visit FA 18' LOLLY BOND PT Aug 28, 2021 10:39
--- NOTE | 2021-08-28 10:39 | Tele-ICU Progress Note ---
Subjective Date Seen by a Provider: Aug 28, 2021 Time Seen by a Provider: 10:39 Sepsis Event Evaluation Height, Weight, BMI Height: 5'9.00" Weight: 175lbs. 0.0oz. 79.156751od; 32.67 BMI Method:Stated Exam Exam Patient acknowledged, consented, and participated in this virtual visit which was conducted using real time audio/video Vital Signs Date Time Temp Pulse Resp B/P (MAP) Pulse Ox O2 Delivery O2 Flow Rate FiO2 08/28/21 10:23 94 Nasal Cannula 2.00 08/28/21 10:00 99 35 123/55 95 Nasal Cannula 2.00 08/28/21 09:00 111 19 94 Nasal Cannula 2.00 08/28/21 08:00 118 18 110/66 97 Nasal Cannula 2.00 08/28/21 07:39 36.2 08/28/21 07:16 96 Nasal Cannula 2.00 08/28/21 07:00 156 19 125/68 98 Nasal Cannula 2.00 08/28/21 07:00 108 08/28/21 06:00 95 20 112/57 98 Nasal Cannula 2.00 08/28/21 05:00 98 21 100/75 98 Nasal Cannula 2.00 08/28/21 04:00 92 Nasal Cannula 2.00 08/28/21 04:00 135 19 103/55 98 Nasal Cannula 2.00 08/28/21 03:00 126 21 106/57 99 Nasal Cannula 2.00 08/28/21 02:00 108 18 105/45 99 Nasal Cannula 2.00 08/28/21 01:00 101 20 97/52 98 Nasal Cannula 2.00 08/28/21 01:00 98 08/28/21 00:00 111 16 82/40 95 Nasal Cannula 2.00 08/27/21 23:59 92 Nasal Cannula 2.00 08/27/21 23:00 91 18 83/56 92 Nasal Cannula 2.00 08/27/21 22:00 108 23 123/72 98 Nasal Cannula 2.00 08/27/21 21:00 106 18 112/69 91 Nasal Cannula 2.00 08/27/21 20:00 106 23 122/43 95 Nasal Cannula 2.00 08/27/21 20:00 92 Nasal Cannula 2.00 08/27/21 19:54 36.7 08/27/21 19:00 126 22 110/61 88 Nasal Cannula 2.00 08/27/21 19:00 101 08/27/21 18:48 94 Nasal Cannula 1.00 08/27/21 18:00 112 17 121/55 95 Nasal Cannula 2.00 08/27/21 17:00 99 23 107/78 93 Nasal Cannula 2.00 08/27/21 16:00 100 19 107/57 96 Nasal Cannula 2.00 08/27/21 16:00 92 Nasal Cannula 2.00 08/27/21 15:00 99 18 101/68 Nasal Cannula 2.00 08/27/21 14:24 94 Nasal Cannula 1.00 08/27/21 14:00 113 19 115/78 80 Nasal Cannula 2.00 08/27/21 13:00 103 20 120/63 95 Nasal Cannula 2.00 08/27/21 13:00 99 08/27/21 12:00 92 Nasal Cannula 2.00 08/27/21 12:00 107 17 127/78 98 Nasal Cannula 2.00 08/27/21 12:00 36.8 08/27/21 11:00 134 20 120/61 92 Nasal Cannula 2.00 08/27/21 10:46 96 Nasal Cannula 1.50 I & O 08/28/21 07:00 Intake Total 1113 ml Output Total 3250 ml Balance -2137 ml Height & Weight Height: 5'9.00" Weight: 175lbs. 0.0oz. 79.076573ny; 32.67 BMI Method:Stated General Appearance: No Apparent Distress, WD/WN HEENT: PERRL/EOMI, Moist Mucous Membranes Neck: Normal Inspection, Supple Respiratory: No Accessory Muscle Use, No Respiratory Distress Cardiovascular: Irregularly Irregular, Tachycardia Capillary Refill: Less Than 3 Seconds Gastrointestinal: normal bowel sounds, non tender Extremity: No Calf Tenderness, No Pedal Edema Neurologic/Psychiatric: Alert, Oriented x3, Normal Mood/Affect Skin: Normal Color, Warm/Dry Results Lab Laboratory Tests 08/27/21 04:13 08/27/21 04:15 08/28/21 04:41 Assessment/Plan Assessment/Plan (Tele-ICU Physician , Progress Note ) Available chart/ vitals / labs / Images reviewed Video assessment done using teleICU camera, rest of exam as per RN Discussed with RN , EXAM PER RN Events overnight : Afebrile I/O = even Drips: Pressors: , hemodynamically stable Consultants: Hospital course: 08/21) 70F Admitted s/p fall left hip fracture, ?UTI (08/22) S/P ORIF left Hip. (08/24) Increase in WBC. started on antibiotics (08/25) Transferred to ICU for New Atrial Fibrillation (RVR). Cardizem drip started. Hypotension, cardizem stopped. Fluids given 08/27 - EE followed by elec CV - back to afib A/P PAF with RVR ( no PE ) - PER CARDS- dig - echo - 08-26-21: LVEF 55-60%. PRSP 30-35 -08/27- EE followed by elec CV - back to a fib - amio gtt AC - eliquis Acute rersp failure - on 2 l O2 now , CT 08/24 - no PE - PNA and small effusions RLL PNA ( by CT ) - on empiric abx - PNA vs UTI -cefepime started - GIVEN PERSISTENT INFILTRATE ON TODAYS CXR WILL CONT ABX 2 MORE DAYS AND FOLLOW S/p nonsyncopal fall on 08/21/2021 - Intramedullary nailing of left intertrochanteric femur fracture on 08/22/2021 - splint L wrist on 08/22/21 - pain control Gallstone in the neck of the gallbladder with mildly distended gallbladder by CT - monitor symptoms Lines : periph (Central Line Necessity Reviewed) Stroud: + - to remove today OG: Nutrition: PO Analgesia: PO Anxiety/ delirium VTE Prophylaxis: eliquis Stress Ulcer Prophylaxis: po Plans in collaboration with bedside consultants and IM MDs. Discussed with RN to reach out if any questions or concerns A total of 25minutes of critical care time was devoted to this patient today, required to treat and/or prevent further deterioration of critical care condition ( as above) ANGELIQUE ARCE MD Aug 28, 2021 10:39
--- NOTE | 2021-08-28 11:16 | Progress Note ---
[facility] 08/28/21 1116: Subjective Date Seen by a Provider: Aug 28, 2021 Time Seen by a Provider: 08:30 Subjective/Events-last exam Jacobo was more alert today, and states that she feels okay Reports that she still has pain in her L hip Appetite has been okay, but still attempts to eat Has had diarrhea Denies any CP Admits to mild SOB Jacobo remains on 2 l/min oxygen Per cardiology, Jacobo will remain on amiodarone today Second cardioversion will be attempted tomorrow (08/29/2021) CXR revealed persistent R lung infiltrate, which is worsened since previous CXR on 08/24/2021 Jacobo has refused PT multiple times d/t concerns of diarrhea Though, she states that she desires to work with PT Review of Systems General: Fatigue Gastrointestinal: Diarrhea Musculoskeletal: other (Pain in L wrist and L hip from fracture) Focused Exam Sepsis Stage: Sepsis (risk) Reason for ruling out sepsis: > 90 BPM, Infection present, monitor Respiratory: No Accessory Muscle Use, No Respiratory Distress Cardiovascular: Irregularly Irregular, Tachycardia Objective Exam Last Set of Vital Signs Vital Signs Date Time Temp Pulse Resp B/P (MAP) Pulse Ox O2 Delivery O2 Flow Rate FiO2 08/28/21 10:23 94 Nasal Cannula 2.00 08/28/21 10:00 99 35 123/55 08/28/21 07:39 36.2 08/25/21 13:26 28 Capillary Refill : Less Than 3 Seconds I&O Intake and Output 08/28/21 00:00 Intake Total 1113 ml Output Total 3675 ml Balance -2562 ml Intake Oral 1000 ml IV Total 113 ml Output Urine Total 3675 ml # Bowel Movements 2 General: Alert, Oriented X3, Cooperative, No Acute Distress Results Lab Laboratory Tests 08/28/21 04:41: White Blood Count 12.7H, Red Blood Count 2.76L, Hemoglobin 8.1L, Hematocrit 25L, Mean Corpuscular Volume 91, Mean Corpuscular Hemoglobin 29, Mean Corpuscular Hemoglobin Concent 32, Red Cell Distribution Width 14.0, Platelet Count 207, Mean Platelet Volume 9.7, Immature Granulocyte % (Auto) 2, Neutrophils (%) (Auto) 69, Lymphocytes (%) (Auto) 17, Monocytes (%) (Auto) 11, Eosinophils (%) (Auto) 1, Basophils (%) (Auto) 0, Neutrophils # (Auto) 8.7H, Lymphocytes # (Auto) 2.2, Monocytes # (Auto) 1.4H, Eosinophils # (Auto) 0.1, Basophils # (Auto) 0.0, Immature Granulocyte # (Auto) 0.2H, Sodium Level 133L, Potassium Level 4.5, Chloride Level 101, Carbon Dioxide Level 22, Anion Gap 10, Blood Urea Nitrogen 15, Creatinine 0.64, Estimat Glomerular Filtration Rate 91, BUN/Creatinine Ratio 23, Glucose Level 115H, Calcium Level 8.4L, Corrected Calcium 9.6, Phosphorus Level 3.1, Magnesium Level 2.3, Total Bilirubin 0.5, Aspartate Amino Transf (AST/SGOT) 54H, Alanine Aminotransferase (ALT/SGPT) 63H, Alkaline Phosphatase 99, Total Protein 5.1L, Albumin 2.5L, Procalcitonin 0.25H, Free Thyroxine 0.97 Meds Item Value Date Time Bisacodyl 10 mg 08/26/21 0945 (Dulcolax DAILY PRN/NH Suppository) Cyanocobalamin 1,000 mcg 08/26/21 0945 (Vitamin B-12 DAILY@0700/PO 08/28/21 0754 Tablet) Amiodarone HCl 259 ml @ 0 mls/hr 08/27/21 0900 450 mg/Dextrose/ Q0M/IV 08/28/21 0917 Water Iron Sucrose 200 mg 08/26/21 0945 (Venofer Q48H@09/IV 08/28/21 0754 Injection) Diltiazem HCl 240 mg 08/26/21 0900 (Cardizem Cd 24 DAILY/PO 08/28/21 0755 Hr Capsule) Lactated Ringer's 1,000 ml @ 100 mls/hr 08/25/212144 Simvastatin 20 mg 08/25/212099 (Zocor Tablet) HS/PO 08/27/212119 Latanoprost 1 ml 08/25/212099 (Xalatan 0.005% HS/OU 08/27/212119 Ophthalmic Solution) Albuterol Sulfate 2.5 mg 08/25/21 1700 (Proventil Q2HR PRN/INH Pre-Mix Nebs (Rt)) Albuterol Sulfate 2.5 mg 08/25/21 1500 (Proventil RTQID/INH 08/28/21 1022 Pre-Mix Nebs (Rt)) Polyethylene 17 gm 08/25/21 0900 Glycol BID/PO (Miralax 17 Gm Packet) Timolol Maleate 1 DROP 08/25/21 0900 (Timoptic 0.5% BID/OU 08/28/21 0754 Ophthalmic Solution) Senna 1 ea 08/25/21 0900 (Senokot S BID/PO Tablet) Potassium Chloride 10 meq 08/25/21 0900 (Klor Con Tablet) DAILY/PO 08/28/21 0755 Pantoprazole 40 mg 08/25/21 0900 Sodium DAILY/PO 08/28/21 0755 (Protonix Tablet) Cholecalciferol 125 mcg 08/25/21 0900 (Vitamin D3 DAILY/PO 08/28/21 0755 Capsule/Tablet) Apixaban 5 mg 08/25/21 0900 (Eliquis Tablet) BID/PO 08/28/21 0755 Calcium/Vitamin D 600 mg 08/25/21 0900 (Calcarb 600 + D DAILY/PO 08/28/21 0755 Tablet) Cefepime HCl 1000 10 ml @ 200 mls/hr 08/25/21 0600 mg/Sterile Water Q6HR/IV 08/28/21 0557 Potassium Chloride 40 meq 08/25/21 0600 (K Dur Tablet) DAILY@0600/PO Magnesium Sulfate/ 100 ml @ 0 mls/hr 08/25/21 0600 Dextrose DAILY@0600/IV Potassium Chloride 50 ml @ 0 mls/hr 08/25/21 0600 Morphine Sulfate 5 mg 08/25/21 0315 (morphine Q2H PRN/IVP INJECTION) Hydralazine HCl 5 mg 08/25/21 0315 (Apresoline Q4H PRN/IV Injection) Guaifenesin/ 10 ml 08/25/21 0315 Codeine Phosphate Q4H PRN/PO (Robitussin Ac (Codeine) Syrup) Diphenhydramine 25 mg 08/25/21 0315 HCl Q6H PRN/PO (Benadryl Tablet) Sodium Chloride 10 ml 08/25/21 0315 (Catheter Flush NEEDED PRN/IV Syringe) Ondansetron HCl 4 mg 08/25/21 0315 (Zofran Oral Q6H PRN/PO Dissolve Tablet) Ondansetron HCl 8 mg 08/25/21 0315 (Zofran Q6H PRN/IVP Injection (Sdv)) Sodium 1 ea 08/25/21 0315 Biphosphate/ BID PRN/NH Sodium Phosphate (Fleet Enema Adult) Melatonin 3 mg 08/25/21 0315 (Melatonin HS PRN/PO Tablet) Loperamide HCl 2 mg 08/25/21 0315 (Imodium Tablet) PRN PRN/PO Lactulose 10 gm 08/25/21 0315 (Enulose Oral BID PRN/PO Solution) Docusate Sodium 100 mg 08/25/21 0315 (Colace Capsule) BID PRN/PO Calcium Carbonate 500 mg 08/25/21 0315 (Antacid TID PRN/PO Chewable Tablet) Bisacodyl 10 mg 08/25/21 0315 (Dulcolax DAILY PRN/NH Suppository) Acetaminophen 650 mg 08/25/21 0315 (Tylenol Tablet) Q4H PRN/PO 08/26/21 0259 Alprazolam 0.25 mg 08/25/21 0315 (Xanax Tablet) Q8H PRN/PO Acetaminophen/ 1 ea 08/25/21 0315 Hydrocodone Bitart Q4H PRN/PO 08/27/216 (Lortab 5 Mg Tablet) Radiology NAME: JACOBO [facility] REC#: [id number] PT STATUS: ADM IN : 1950 PHYSICIAN: CARMELITA VAZ DO ADMIT DATE: 08/25/21/ICU Signed Date of Exam:08/28/21 CHEST 1 VIEW, AP/PA ONLY Indication: Pneumonia Upright portable chest shows normal heart size and vascularity. There is a right perihilar and basilar infiltrate. Small effusion on the right. There is no pneumothorax. IMPRESSION: Persistent right lung infiltrate which may be slightly worse compared to the 08/24/2021 study. Recommend continued follow-up. Dictated by: Dictated on workstation # [id number] Dict: 08/28/21 0647 Trans: 08/28/21 0918 [facility] [id number] Interpreted by: FERN CAMACHO MD Electronically signed by: FERN CAMACHO MD 08/28/21 0918 Assessment/Plan Assessment/Plan Assess & Plan/Chief Complaint New onset a-fib Amiodarone started, not yet rate-controlled Dr. Crawley will attempt a second Cardioversion tomorrow (08/29/2021) after 24 hrs on amiodarone Eliquis for stroke ppx Telemetry Continue to monitor Lobar pneumonia involving the right lower lobe and dependent right upper lobe Continue Cefepime Wean oxygen as able Anemia (normo-cytic) Hgb 8.1 Continue to monitor Constipation New onset diarrhea, possibly from bowel regimen Monitor Comminuted intertrochanteric left femoral fracture Distal radial fracture Osteoporosis Continue pain regimen PT/OT will assess Goal is to do some PT/OT today, which Jacobo agreed to already on alendronate and calcium supplement at home HTN HLD Hold antihypertensives due to relative hypotension on cardizem BP stabilized at 127/78 this morning, continue to monitor Continue statin Hypothyroidism TSH: 0.13, hold levothyroxine for now Diagnosis/Problems Diagnosis/Problems (1) Osteoporosis (2) Wrist fracture Status: Acute (3) Hip fracture Status: Acute (4) Hypothyroidism (5) Essential (primary) hypertension (6) HLD (hyperlipidemia) (7) Afib Clinical Quality Measures Admission Status Admission Dx A-fib w RVR Admission Status: Observation [facility] [place] 08/29/21 0502: Subjective Subjective/Events-last exam Patient doing well On amiodarone drip Attempt cardioversion again tomorrow PT and OT required and we discussed that 2 L of oxygen currently Still tachycardic from A. fib Hemoglobin 8.1 Chest x-ray no change with pneumonia Diarrhea since bowel regimen initiated Very difficult to communicate and assess her exact needs Review of Systems General: Fatigue Gastrointestinal: Diarrhea Musculoskeletal: leg pain Objective Exam General: Alert, Oriented X3, Cooperative, No Acute Distress Lungs: Other (Much improved air movement) Psych/Mental Status: Mental Status NL Assessment/Plan Assessment/Plan Assess & Plan/Chief Complaint Antibiotics for pneumonia Nebulizer treatments Incentive spirometer Pain control PT and OT Supervisory-Addendum Brief Verification & Attestation Participated in pt care: history, MDM, physical Personally performed: exam, history, MDM, supervision of care Care discussed with: Medical Student Procedures: n/a Results interpretation: Verified all documentation Verification and Attestation of Medical Student E/M Service A medical student performed and documented this service in my presence. I reviewed and verified all information documented by the medical student and made modifications to such information, when appropriate. I personally performed the physical exam and medical decision making. Carmelita Vaz, Aug 29, 2021,05:02 NORMA KAT Aug 28, 2021 11:16 CARMELITA VAZ DO Aug 29, 2021 05:02
--- NOTE | 2021-08-28 11:21 | Progress Note - Ortho ---
Progress Note Subjective Date of Exam 08/28/21 Chief Complaint Left leg weakness and left wrist splint HPI/Events since last exam s/p IM nailing of L IT Femur Fx has been having difficulty with therapy secondary to increases in heart rate, has been able to do some bed side leg exercises, anxious for splint change on left arm Review of Systems not obtained Allergies: Coded Allergies: No Known Drug Allergies (Unverified , 01/17/19) Home Meds Reported Medications Potassium Chloride (Potassium Chloride) 10 Meq Tab.er.prt, 10 MEQ PO DAILY, TAB 08/22/21 Alendronate Sodium (Alendronate Sodium) 70 Mg Tablet, 70 MG PO WEEK, TAB 08/22/21 Pantoprazole Sodium (Pantoprazole Sodium) 40 Mg Tablet.dr, 40 MG PO DAILY, TAB 08/22/21 Cholecalciferol (Vitamin D3) (Vitamin D3) 125 Mcg Capsule, 125 MCG PO DAILY, CAP 08/22/21 Latanoprost (Xalatan) 2.5 Ml Drops, 1 DROP OU HS, DROPS 08/22/21 Calcium Carb/D3/Magnesium/Zinc (Josue Mag Zinc + D3 Tablet) 1 Each Tablet, 1 TAB PO DAILY, TAB 01/17/19 Timolol Maleate (Timolol Maleate 0.5%) 5 Ml Drops, 1 DROP OU BID, EA 01/17/19 Furosemide (Furosemide) 20 Mg Tablet, 20 MG PO DAILY, TAB 01/17/19 Amlodipine Besylate (Amlodipine Besylate) 5 Mg Tablet, 5 MG PO DAILY, TAB 01/17/19 Atenolol (Atenolol) 50 Mg Tablet, 50 MG PO DAILY, TAB 01/17/19 Levothyroxine Sodium (Levothyroxine Sodium) 25 Mcg Tablet, 25 MCG PO DAILY, TAB 01/17/19 Simvastatin (Simvastatin) 20 Mg Tablet, 20 MG PO HS, TAB 01/17/19 Discontinued Reported Medications Anastrozole (Anastrozole) 1 Mg Tablet, 1 MG PO DAILY, TAB 02/15/19 Cholecalciferol (Vitamin D3) (Vitamin D3) 400 Unit Capsule, 400 UNIT PO DAILY, CAP 01/17/19 Folic Acid (Folic Acid) 0.8 Mg Tablet, 0.8 MG PO DAILY, TAB 01/17/19 Potassium Chloride (Potassium Chloride) 10 Meq Tablet.er, 10 MEQ PO DAILY, TAB 01/17/19 Objective Exam Left Hip: Incisions clean and intact, some serous drainage from proximal 2 incisions, +DF of ankle, no s/s of DVT Vital Signs Vital Signs Date Time Temp Pulse Resp B/P (MAP) Pulse Ox O2 Delivery O2 Flow Rate FiO2 08/28/21 10:23 94 Nasal Cannula 2.00 08/28/21 10:00 99 35 123/55 95 Nasal Cannula 2.00 08/28/21 09:00 111 19 94 Nasal Cannula 2.00 08/28/21 08:00 94 Room Air 08/28/21 08:00 118 18 110/66 97 Nasal Cannula 2.00 08/28/21 07:39 36.2 08/28/21 07:16 96 Nasal Cannula 2.00 08/28/21 07:00 156 19 125/68 98 Nasal Cannula 2.00 08/28/21 07:00 108 08/28/21 06:00 95 20 112/57 98 Nasal Cannula 2.00 08/28/21 05:00 98 21 100/75 98 Nasal Cannula 2.00 08/28/21 04:00 92 Nasal Cannula 2.00 08/28/21 04:00 135 19 103/55 98 Nasal Cannula 2.00 08/28/21 03:00 126 21 106/57 99 Nasal Cannula 2.00 08/28/21 02:00 108 18 105/45 99 Nasal Cannula 2.00 08/28/21 01:00 101 20 97/52 98 Nasal Cannula 2.00 08/28/21 01:00 98 08/28/21 00:00 111 16 82/40 95 Nasal Cannula 2.00 08/27/21 23:59 92 Nasal Cannula 2.00 08/27/21 23:00 91 18 83/56 92 Nasal Cannula 2.00 08/27/21 22:00 108 23 123/72 98 Nasal Cannula 2.00 08/27/21 21:00 106 18 112/69 91 Nasal Cannula 2.00 08/27/21 20:00 106 23 122/43 95 Nasal Cannula 2.00 08/27/21 20:00 92 Nasal Cannula 2.00 08/27/21 19:54 36.7 08/27/21 19:00 126 22 110/61 88 Nasal Cannula 2.00 08/27/21 19:00 101 08/27/21 18:48 94 Nasal Cannula 1.00 08/27/21 18:00 112 17 121/55 95 Nasal Cannula 2.00 08/27/21 17:00 99 23 107/78 93 Nasal Cannula 2.00 08/27/21 16:00 100 19 107/57 96 Nasal Cannula 2.00 08/27/21 16:00 92 Nasal Cannula 2.00 08/27/21 15:00 99 18 101/68 Nasal Cannula 2.00 08/27/21 14:24 94 Nasal Cannula 1.00 08/27/21 14:00 113 19 115/78 80 Nasal Cannula 2.00 08/27/21 13:00 103 20 120/63 95 Nasal Cannula 2.00 08/27/21 13:00 99 08/27/21 12:00 92 Nasal Cannula 2.00 08/27/21 12:00 107 17 127/78 98 Nasal Cannula 2.00 08/27/21 12:00 36.8 I & O 08/28/21 07:00 Intake Total 1113 ml Output Total 3250 ml Balance -2137 ml Lab Results Laboratory Tests 08/28/21 04:41: White Blood Count 12.7H, Red Blood Count 2.76L, Hemoglobin 8.1L, Hematocrit 25L, Mean Corpuscular Volume 91, Mean Corpuscular Hemoglobin 29, Mean Corpuscular Hemoglobin Concent 32, Red Cell Distribution Width 14.0, Platelet Count 207, Mean Platelet Volume 9.7, Immature Granulocyte % (Auto) 2, Neutrophils (%) (Au to) 69, Lymphocytes (%) (Auto) 17, Monocytes (%) (Auto) 11, Eosinophils (%) (Auto) 1, Basophils (%) (Auto) 0, Neutrophils # (Auto) 8.7H, Lymphocytes # (Auto) 2.2, Monocytes # (Auto) 1.4H, Eosinophils # (Auto) 0.1, Basophils # (Auto) 0.0, Immature Granulocyte # (Auto) 0.2H, Sodium Level 133L, Potassium Level 4.5, Chloride Level 101, Carbon Dioxide Level 22, Anion Gap 10, Blood Urea Nitrogen 15, Creatinine 0.64, Estimat Glomerular Filtration Rate 91, BUN/Creatinine Ratio 23, Glucose Level 115H, Calcium Level 8.4L, Corrected Calcium 9.6, Phosphorus Level 3.1, Magnesium Level 2.3, Total Bilirubin 0.5, Aspartate Amino Transf (AST/SGOT) 54H, Alanine Aminotransferase (ALT/SGPT) 63H, Alkaline Phosphatase 99, Total Protein 5.1L, Albumin 2.5L, Procalcitonin 0.25H, Free Thyroxine 0.97 Assessment and Plan Assessment s/p IM nailing of L IT Femur Fx L Colles Fx Problem List s/p IM nailing of L IT Femur Fx L Colles Fx Plan Continue therapy as able Continue DVT prophylaxis Plan for change to short arm cast possibly tomorrow afternoon Final Diagonsis Post Op s/p IM nailing of L IT Femur Fx L Colles Fx Level of the visit: Level 3 (global) LOU SANFORD MD Aug 28, 2021 11:21
--- NOTE | 2021-08-28 11:21 | Occupational Ther Daily Note ---
OT Current Status-Daily Note Subjective Pt reports pain 5/10 in LLE, RN notified. Appearance Pt left supine in bed, all needs within reach. ADL-Treatment Therapy Code Descriptions/Definitions Functional [place] Measure: 0=Not Assessed/NA 4=Minimal Assistance 1=Total Assistance 5=Supervision or Setup 2=Maximal Assistance 6=Modified [place] 3=Moderate Assistance 7=Complete IndependenceSCALE: Activities may be completed with or without assistive devices. 1-Ijdgugsogv-catnoas completes the activity by him/herself with no assistance from a helper. 5-Set-up or Clean-up Assistance-helper sets up or cleans up; patient completes activity. [place] assists only prior to or following the activity. 4-Supervision or Touching Assistance-helper provides verbal cues and/or touching/steadying and/or contact guard assistance as patient completes act ivity. Assistance may be provided throughout the activity or intermittently. 3-Partial/Moderate Assistance-helper does LESS THAN HALF the effort. [place] lifts, holds or supports trunk or limbs, but provides less than half the effort. 2-Substantial/Maximal Assistance-helper does MORE THAN HALF the effort. [place] lifts or holds trunk or limbs and provides more than half the effort. 8-Dvbvxzbto-otksvr does ALL the effort. Patient does none of the effort to complete the activity. Or, the assistance of 2 or more helpers is required for the patient to complete the activity. If activity was not attempted, code reason: 7-Patient Refused. 9-Not Applicable-not attempted and the patient did not perform the activity before the current illness, exacerbation or injury. 10-Not Attempted due to Environmental Limitations-(lack of equipment, weather restraints, etc.). 88-Not Attempted due to Medical Conditions or Safety Concerns. On/Off Footwear: 1 Toileting Hygiene (QC): 1 Pt reluctant to participate, but agreeable with encouragement. MAX a to sit EOB. Reports dizziness upon sitting upright, extra time to recover. Pt continues to demonstrate a-fib with HR ranging from 90's to 160's. Assist x2 to stand, poor standing tolerance with difficulty shifting weight onto LLE. Extra time and cues to extend trunk/hips and transition LUE onto platform walker. She reports dizziness and is returned to sitting. Attempt again at standing, dep for emma care as pt having active diarrhea. Pt unable to transition L foot at this time. Returned to supine, dependent to scoot to HOB. While in supine, pt exhibits some internal rotation of LLE, education and attempt on repositioning given. Education OT Patient Education: Correct positioning, Disease process, Modified ADL techniques, Progress toward Goal/Update tx plan, Purpose of tx/functional activities, Reviewed precautions, Rehab process, Safety issues, Transfer techniques Teaching Recipient: Patient Teaching Methods: Demonstration, Discussion Response to Teaching: Verbalize Understanding, Reinforcement Needed Pt is very [place], requires repetition. OT Data Center Technician Goals Mcc Goals Time Frame: Sep 14, 2021 Oral Hygiene (QC): 5 Toileting Hygiene (QC): 4 Shower/Bathe Self (QC): 4 Upper Body Dressing (QC): 5 Lower Body Dressing (QC): 4 On/Off Footwear (QC): 5 1=Demonstrate adherence to instructed precautions during ADL tasks. 2=Patient will verbalize/demonstrate understanding of assistive devices/modifications for ADL. 3=Patient will improve strength/tolerance for activity to enable patient to perform ADL's. OT Education/Plan Problem List/Assessment Assessment: Decreased Activ Tolerance, Decreased Safety Aware, Decreased UE Strength, Dependent Transfers, Impaired Bed Mobility, Impaired Cognition, Impaired Funct Balance, Impaired I ADL's, Impaired Self-Care Skills, Restricted Funct UE ROM Discharge Recommendations Plan/Recommendations: Continue POC Treatment Plan/Plan of Care Patient would benefit from OT for education, treatment and training to promote independence in ADL's, mobility, safety and/or upper extremity function for ADL's. Plan of Care: ADL Retraining, Functional Mobility, Group Exercise/Act as Ind, UE Funct Exercise/Act Treatment Duration: Sep 14, 2021 Frequency: 5 times per week Estimated Hrs Per Day: .25 hour per day Agreement: Yes Rehab Potential: Fair Time/GCodes Start Time: 09:41 Stop Time: 09:59 Total Time Billed (hr/min): 18 Billed Treatment Time 1 visit, Nita Swenson OT Aug 28, 2021 11:21
--- NOTE | 2021-08-28 13:13 | Progress Note - Cardiology ---
Cardiology SOAP Progress Note Subjective: No cp or palp or syncope or shortness of breath Gen weakness and malaise present No n/v/d Objective: I&O/Vital Signs 08/28/21 08/28/21 08/28/21 08/28/21 02:00 03:00 04:00 04:00 Pulse 108 126 135 Resp 18 21 19 B/P (MAP) 105/45 106/57 103/55 Pulse Ox 99 99 98 92 O2 Delivery Nasal Cannula Nasal Cannula Nasal Cannula Nasal Cannula O2 Flow Rate 2.00 2.00 2.00 2.00 08/28/21 08/28/21 08/28/21 08/28/21 05:00 06:00 07:00 07:00 Pulse 98 95 108 156 Resp 21 20 19 B/P (MAP) 100/75 112/57 125/68 Pulse Ox 98 98 98 O2 Delivery Nasal Cannula Nasal Cannula Nasal Cannula O2 Flow Rate 2.00 2.00 2.00 08/28/21 08/28/21 08/28/21 08/28/21 07:16 07:39 08:00 08:00 Temp 36.2 Pulse 118 Resp 18 B/P (MAP) 110/66 Pulse Ox 96 97 94 O2 Delivery Nasal Cannula Nasal Cannula Room Air O2 Flow Rate 2.00 2.00 08/28/21 08/28/21 08/28/21 08/28/21 09:00 10:00 10:23 11:49 Temp 36.0 Pulse 111 99 Resp 19 35 B/P (MAP) 123/55 Pulse Ox 94 95 94 O2 Delivery Nasal Cannula Nasal Cannula Nasal Cannula O2 Flow Rate 2.00 2.00 2.00 08/28/21 00:00 Intake Total 1010 ml Output Total 1975 ml Balance -965 ml Weight (Pounds): 175 Weight (Ounces): 0.0 Weight (Calculated Kilograms): 79.167839 Constitutional: AAO x 3, well-developed, well-nourished Respiratory: No accessory muscle use; other (good, bilateral air entry) Cardiovascular: irregularly irregular, tachycardia, S1 and S2, systolic murmur (soft ALEXANDER at card base) Gastrointestional: No tender; soft; No guarding, No rebound; audible bowel sounds Extremities: No clubbing, No cyanosis, No significant edema Neurologic/Psychiatric: oriented x 3, other (moves all limbs equally) Skin: normal color Results/Procedures: Labs Laboratory Tests 08/28/21 04:41: White Blood Count 12.7H, Red Blood Count 2.76L, Hemoglobin 8.1L, Hematocrit 25L, Mean Corpuscular Volume 91, Mean Corpuscular Hemoglobin 29, Mean Corpuscular Hemoglobin Concent 32, Red Cell Distribution Width 14.0, Platelet Count 207, Mean Platelet Volume 9.7, Immature Granulocyte % (Auto) 2, Neutrophils (%) (Auto) 69, Lymphocytes (%) (Auto) 17, Monocytes (%) (Auto) 11, Eosinophils (%) (Auto) 1, Basophils (%) (Auto) 0, Neutrophils # (Auto) 8.7H, Lymphocytes # (Auto) 2.2, Monocytes # (Auto) 1.4H, Eosinophils # (Auto) 0.1, Basophils # (Auto) 0.0, Immature Granulocyte # (Auto) 0.2H, Sodium Level 133L, Potassium Level 4.5, Chloride Level 101, Carbon Dioxide Level 22, Anion Gap 10, Blood Urea Nitrogen 15, Creatinine 0.64, Estimat Glomerular Filtration Rate 91, BUN/Creatinine Ratio 23, Glucose Level 115H, Calcium Level 8.4L, Corrected Calcium 9.6, Phosphorus Level 3.1, Magnesium Level 2.3, Total Bilirubin 0.5, Aspartate Amino Transf (AST/SGOT) 54H, Alanine Aminotransferase (ALT/SGPT) 63H, Alkaline Phosphatase 99, Total Protein 5.1L, Albumin 2.5L, Procalcitonin 0.25H, Free Thyroxine 0.97 A/P: Assessment: PAF with RVR - CHADSVASc score 3 - Echo on 08-26-21: LVEF 55-60%. There were no regional wall motion ab normalities identified. Pulmonary systolic pressure is in the range of 30 mm Hg to 35 mm Hg - JOANIE on 08-27-21: LVEF 60%, no intracardiac thrombus, redundant interatrial septum and PFO with small L to R shunt, mild MR and TR - Electrical cardioversion on 08-27-21 successfully converted A Fib to NSR but she went back into A Fib several minutes later S/p nonsyncopal fall on 08/21/2021 - Intramedullary nailing of left intertrochanteric femur fracture on 08/22/2021 - splint L wrist on 08/22/21 H/o hypertension - currently relatively hypotensive H/o hyperlipidemia H/o hypothyroidism Plan: * Results of JOANIE and elec CV described discussed with patient and family * Continue dilt * Continue apixaban * iv amio to be followed by oral amio * Consider elec CV again tomorrow * Monitor labs * Discussed with YUNIOR Hunter MD FACP [facility] Aug 28, 2021 13:13
[2021-08-28] MEDS: HYDROcodone/APAP 5 MG/325 MG (LORTAB) TAB PO PRN (13:48)
--- NOTE | 2021-08-28 14:20 | Physical Therapy Daily Note ---
PT Daily Note-Current Subjective Patient in bed pre tx, agrees to PT, patient has unrated pain in left hip, states she has "some" pain Appearance Patient in bed post tx with nurse call, phone, tray, all needs met. Mental Status Patient Orientation: Person, Place, Situation Transfers SCALE: Activities may be completed with or without assistive devices. 1-Utbioldfhv-wrgravm completes the activity by him/herself with no assistance from a helper. 5-Set-up or Clean-up Assistance-helper sets up or cleans up; patient completes activity. [place] assists only prior to or following the activity. 4-Supervision or Touching Assistance-helper provides verbal cues and/or touching/steadying and/or contact guard assistance as patient completes activity. Assistance may be provided throughout the activity or intermittently. 3-Partial/Moderate Assistance-helper does LESS THAN HALF the effort. [place] lifts, holds or supports trunk or limbs, but provides less than half the effort. 2-Substantial/Maximal Assistance-helper does MORE THAN HALF the effort. [place] lifts or holds trunk or limbs and provides more than half the effort. 2-Jfxaglvsk-illdip does ALL the effort. Patient does none of the effort to complete the activity. Or, the assistance of 2 or more helpers is required for the patient to complete the activity. If activity was not attempted, code reason: 7-Patient Refused. 9-Not Applicable-not attempted and the patient did not perform the activity before the current illness, exacerbation or injury. 10-Not Attempted due to Environmental Limitations-(lack of equipment, weather restraints, etc.). 88-Not Attempted due to Medical Conditions or Safety Concerns. Weight Bearing Right Lower Extremity: Right Full Weight Bearing Left Lower Extremity: Left Weight Bearing/Tolerated No weight through left wrist Exercises Supine Ex: Ankle pumps, Quad Set, Glut sets, Heel Slides (AAROM), Short Arc Quads, Hip abd/add Supine Reps: 20 Treatments LE total hip exercises Assessment Current Status: Fair Progress improved AROM PT Snf Goals Snf Goals PT Cafe Site Attendant Goals Time Frame: Sep 14, 2021 Roll Left & Right (QC): 5 Sit to Lying (QC): 5 Lying-Sitting on Side/Bed(QC): 5 Sit to Stand (QC): 5 Chair/Mrj-bl-Tdpgi Xfer(QC): 5 Toilet Transfer (QC): 5 Car Transfer (QC): 5 Walk 10 feet (QC): 5 Walk 50ft with 2 Turns (QC): 5 Walk 150 ft (QC): 5 PT Plan Problem List Problem List: Activity Tolerance, Functional Strength, Safety, Balance, Gait, Transfer, Bed Mobility, ROM Treatment/Plan Treatment Plan: Continue Plan of Care Treatment Plan: Bed Mobility, Education, Functional Activity [place], Functional Strength, Gait, Safety, Therapeutic Exercise, Transfers Treatment Duration: Sep 14, 2021 Frequency: 11 times per week Estimated Hrs Per Day: .5 hour per day Patient and/or Family Agrees t: Yes Safety Risks/Education Patient Education: Correct Positioning, Safety Issues Teaching Recipient: Patient Teaching Methods: Demonstration, Discussion Response to Teaching: Reinforcement Needed Time/GCodes Time In: 1400 Time Out: 1410 Total Billed Treatment Time: 10 Total Billed Treatment 1 visit EX Criselda' LOLLY BOND PT Aug 28, 2021 14:20
[2021-08-28 14:49] VITALS: BP 130/52
[2021-08-28] MEDS: LATANOPROST 0.005% (XALATAN) OPHTH SOLN 2.5 ML OU SCH (20:40)
[2021-08-28] MEDS: SIMvastatin 20 MG (ZOCOR) TAB PO SCH (20:40)
[2021-08-28] MEDS: AMIODARONE 200 MG (CORDARONE) TAB PO SCH (20:40)
[2021-08-28] MEDS ORDERED: AMIODARONE 450 MG/9 ML (CORDARONE) VIAL IV ONE (23:47)
[2021-08-28] MEDS ORDERED: D5W IV SOLUTION (EXCEL) 250 ML IV ONE (23:48)
[2021-08-29] MEDS: LACTATED RINGERS 1,000 ML IV SCH (04:57)
[2021-08-29 05:08] LABS: BASOPHILS % (AUTO) 0 % (0-10); EOSINOPHILS # (AUTO) 0.1 10^3/uL (0.0-0.3); EOSINOPHILS % (AUTO) 1 % (0-10); HEMATOCRIT 25 % (35-52); HEMOGLOBIN 8.2 g/dL (11.5-16.0); LYMPHOCYTES # (AUTO) 2.2 10^3/uL (1.0-4.0); LYMPHOCYTES % (AUTO) 16 % (12-44); MEAN CORPUSCULAR HEMOGLOBIN 29 pg (25-34); MEAN CORPUSCULAR HGB CONC 32 g/dL (32-36); MEAN CORPUSCULAR VOLUME 91 fL (80-99); MEAN PLATELET VOLUME 9.4 fL (9.0-12.2); MONOCYTES # (AUTO) 1.4 10^3/uL (0.0-1.0); MONOCYTES % (AUTO) 10 % (0-12); NEUTROPHILS # (AUTO) 9.6 10^3/uL (1.8-7.8); NEUTROPHILS % (AUTO) 69 % (42-75); PLATELET COUNT 248 10^3/uL (130-400); WHITE BLOOD COUNT 13.8 10^3/uL (4.3-11.0)
[2021-08-29 05:19] LABS: ALBUMIN 2.6 GM/DL (3.2-4.5)
[2021-08-29 05:20] LABS: POTASSIUM 4.6 MMOL/L (3.6-5.0)
[2021-08-29 05:21] LABS: CALCIUM 8.5 MG/DL (8.5-10.1)
[2021-08-29 05:22] LABS: TOTAL PROTEIN 5.1 GM/DL (6.4-8.2)
[2021-08-29 05:24] LABS: BILIRUBIN,TOTAL 0.5 MG/DL (0.1-1.0)
[2021-08-29 05:25] LABS: PHOSPHORUS 2.9 MG/DL (2.3-4.7)
[2021-08-29 05:26] LABS: CREATININE SERUM 0.7 MG/DL (0.60-1.30)
[2021-08-29] MEDS: POTASSIUM CL 10MEQ/50ML IVPB 50 ML IV SCH (05:26)
[2021-08-29] MEDS: KCL 20 MEQ TAB (K-DUR) PO SCH (05:27)
[2021-08-29 05:28] LABS: MAGNESIUM 2.3 MG/DL (1.6-2.4)
[2021-08-29] MEDS: MAGNESIUM 1 GM/100 ML IVPB 100 ML IV SCH (05:31)
[2021-08-29] MEDS: CYANOCOBALAMIN 1,000 MCG (VITAMIN B-12) TABLET PO SCH (05:43)
[2021-08-29] MEDS: CEFEPIME INJECTION 1,000 MG in WATER (STERILE) FOR INJECTION 10 ML IV SCH ×2 (05:43→11:29)
[2021-08-29] MEDS: CALCIUM CARB + VIT D 600 MG (CALCARB + D) TAB PO SCH (09:09)
[2021-08-29] MEDS: KCL 10 MEQ TAB (MICRO K) PO SCH (09:09)
[2021-08-29] MEDS: AMIODARONE 200 MG (CORDARONE) TAB PO SCH (09:09)
[2021-08-29] MEDS: APIXABAN 5 MG (ELIQUIS) TABLET PO SCH (09:09)
[2021-08-29] MEDS: TIMOLOL MALEATE 0.5% 5 ML (TIMOPTIC) BTL OU SCH (09:09)
[2021-08-29] MEDS: PANTOPRAZOLE 40 MG (PROTONIX) TAB PO SCH (09:10)
[2021-08-29] MEDS: HYDROcodone/APAP 5 MG/325 MG (LORTAB) TAB PO PRN (09:10)
--- NOTE | 2021-08-29 09:17 | Progress Note - Cardiology ---
Cardiology SOAP Progress Note Subjective: No cp or palp or syncope No shortness of breath at rest Gen malaise and weakness No n/v/d Objective: I&O/Vital Signs 08/28/21 08/28/21 08/28/21 08/29/21 22:00 23:00 23:59 00:00 Pulse 89 83 90 Resp 15 21 20 B/P (MAP) 120/51 124/52 132/56 Pulse Ox 95 96 96 95 O2 Delivery Nasal Cannula Nasal Cannula Room Air Nasal Cannula O2 Flow Rate 2.00 2.00 2.00 08/29/21 08/29/21 08/29/21 08/29/21 00:09 01:00 01:00 02:00 Temp 36.4 Pulse 82 83 83 Resp 20 20 B/P (MAP) 125/51 122/52 Pulse Ox 94 94 O2 Delivery Nasal Cannula Nasal Cannula O2 Flow Rate 2.00 2.00 08/29/21 08/29/21 08/29/21 08/29/21 03:00 03:43 03:44 04:00 Temp 36.7 Pulse 109 113 Resp 16 18 B/P (MAP) 152/75 121/52 Pulse Ox 97 96 98 O2 Delivery Nasal Cannula Nasal Cannula Nasal Cannula Nasal Cannula O2 Flow Rate 2.00 2.00 2.00 2.00 08/29/21 08/29/21 08/29/21 08/29/21 05:00 06:00 06:36 07:00 Pulse 92 87 87 89 Resp 17 18 16 B/P (MAP) 133/61 132/57 133/59 Pulse Ox 98 98 97 O2 Delivery Nasal Cannula Nasal Cannula Nasal Cannula O2 Flow Rate 2.00 2.00 2.00 08/29/21 08/29/21 08/29/21 08/29/21 07:30 07:57 08:00 09:00 Temp 36.6 Pulse 114 88 Resp 32 18 B/P (MAP) 119/62 134/58 Pulse Ox 99 93 O2 Delivery Nasal Cannula Nasal Cannula Nasal Cannula O2 Flow Rate 2.00 2.00 2.00 08/29/21 00:00 Intake Total 1600 ml Output Total 1675 ml Balance -75 ml Weight (Pounds): 175 Weight (Ounces): 0.0 Weight (Calculated Kilograms): 79.952213 Constitutional: AAO x 3, well-developed, well-nourished Respiratory: No accessory muscle use; other (good, bilateral air entry) Cardiovascular: irregularly irregular, tachycardia, S1 and S2, systolic murmur (soft ALEXANDER at card base) Gastrointestional: No tender; soft; No guarding, No rebound; audible bowel sounds Extremities: No clubbing, No cyanosis, No significant edema Neurologic/Psychiatric: oriented x 3, other (moves all limbs equally) Skin: normal color Results/Procedures: Labs Laboratory Tests 08/29/21 04:45: White Blood Count 13.8H, Red Blood Count 2.79L, Hemoglobin 8.2L, Hematocrit 25L, Mean Corpuscular Volume 91, Mean Corpuscular Hemoglobin 29, Mean Corpuscular Hemoglobin Concent 32, Red Cell Distribution Width 14.2, Platelet Count 248, Mean Platelet Volume 9.4, Immature Granulocyte % (Auto) 4, Neutrophils (%) (Aut o) 69, Lymphocytes (%) (Auto) 16, Monocytes (%) (Auto) 10, Eosinophils (%) (Auto) 1, Basophils (%) (Auto) 0, Neutrophils # (Auto) 9.6H, Lymphocytes # (Auto) 2.2, Monocytes # (Auto) 1.4H, Eosinophils # (Auto) 0.1, Basophils # (Auto) 0.0, Immature Granulocyte # (Auto) 0.5H, Sodium Level 134L, Potassium Level 4.6, Chloride Level 102, Carbon Dioxide Level 23, Anion Gap 9, Blood Urea Nitrogen 17, Creatinine 0.70, Estimat Glomerular Filtration Rate 82, BUN/Creatinine Ratio 24, Glucose Level 119H, Calcium Level 8.5, Corrected Calcium 9.6, Phosphorus Level 2.9, Magnesium Level 2.3, Total Bilirubin 0.5, Aspartate Amino Transf (AST/SGOT) 50H, Alanine Aminotransferase (ALT/SGPT) 66H, Alkaline Phosphatase 122, Total Protein 5.1L, Albumin 2.6L Laboratory Tests 08/28/21 04:41 08/29/21 04:45 A/P: Assessment: PAF with RVR - CHADSVASc score 3 - Echo on 08-26-21: LVEF 55-60%. There were no regional wall motion abnormalities identified. Pulmonary systolic pressure is in the range of 30 mm Hg to 35 mm Hg - JOANIE on 08-27-21: LVEF 60%, no intracardiac thrombus, redundant interatrial septum and PFO with small L to R shunt, mild MR and TR - Electrical cardioversion on 08-27-21 successfully converted A Fib to NSR but she went back into A Fib several minutes later - In NSR on 08/29/21 after treatment with amiodarone S/p nonsyncopal fall on 08/21/2021 - Intramedullary nailing of left intertrochanteric femur fracture on 08/22/2021 - splint L wrist on 08/22/21 H/o hypertension - currently relatively hypotensive H/o hyperlipidemia H/o hypothyroidism Plan: * Continue oral amio: 400 po bid for 10 days then 400 daily * Continue long-acting dilt * Continue oral anticoag for stroke prophylaxis * Ok to transfer back to rehab YUNIOR VICTOR MD FACP [facility]S Aug 29, 2021 09:17
[2021-08-29] MEDS: VITAMIN D3 125 MCG (5,000 UNITS) CAPSULE PO SCH (09:18)
[2021-08-29] MEDS: RT-ALBUTEROL SULF 2.5 MG/3 ML PRE-MIX VIAL INH SCH (10:34)
--- NOTE | 2021-08-29 10:50 | Physical Therapy Daily Note ---
PT Daily Note-Current Subjective Patient agrees to PT. Pain Numeric Pain Scale: 5-Moderate Pain Location: Left Location Body Site: Hip Pain Description: Acute Mental Status Patient Orientation: Normal For Age Attachments: Oxygen, [place] Catheter, IV Transfers SCALE: Activities may be completed with or without assistive devices. 4-Iqpwkcbkon-drvozyt completes the activity by him/herself with no assistance from a helper. 5-Set-up or Clean-up Assistance-helper sets up or cleans up; patient completes activity. [place] assists only prior to or following the activity. 4-Supervision or Touching Assistance-helper provides verbal cues and/or touch ing/steadying and/or contact guard assistance as patient completes activity. Assistance may be provided throughout the activity or intermittently. 3-Partial/Moderate Assistance-helper does LESS THAN HALF the effort. [place] lifts, holds or supports trunk or limbs, but provides less than half the effort. 2-Substantial/Maximal Assistance-helper does MORE THAN HALF the effort. [place] lifts or holds trunk or limbs and provides more than half the effort. 6-Xhipbqufm-txuhgr does ALL the effort. Patient does none of the effort to complete the activity. Or, the assistance of 2 or more helpers is required for the patient to complete the activity. If activity was not attempted, code reason: 7-Patient Refused. 9-Not Applicable-not attempted and the patient did not perform the activity before the current illness, exacerbation or injury. 10-Not Attempted due to Environmental Limitations-(lack of equipment, weather restraints, etc.). 88-Not Attempted due to Medical Conditions or Safety Concerns. Lying to Sitting/Side of Bed(Q: 2 Sit to Stand (QC): 2 Chair/Pps-zk-Lxawn Xfer(QC): 2 Toilet Transfer (QC): 2 Patient unable to perform sit to stand to FWW requiring PT and max assist with blocking bilateral knees to attain stand and to transfer to commode Weight Bearing Right Lower Extremity: Right Full Weight Bearing Left Lower Extremity: Left Weight Bearing/Tolerated No weight through left wrist Gait Training Does the Patient Walk?: No and Walking Goal IS indicated Exercises Supine Ex: Ankle pumps, Quad Set, Heel Slides (minimal flexion) Seated Therapy Exercises: Ankle pumps, Long arc quads, Hip flexion Seated Reps: 15 Assessment Patient tolerates minimal activity and requires max assist with all mobility with inability to attain sit to stand to left platform FWW. PT to increase activity as tolerated by patient. PT Car Sales Representative Goals Mcc Goals PT Mcc Goals Time Frame: Sep 14, 2021 Roll Left & Right (QC): 5 Sit to Lying (QC): 5 Lying-Sitting on Side/Bed(QC): 5 Sit to Stand (QC): 5 Chair/Wpa-ew-Kjtpy Xfer(QC): 5 Toilet Transfer (QC): 5 Car Transfer (QC): 5 Walk 10 feet (QC): 5 Walk 50ft with 2 Turns (QC): 5 Walk 150 ft (QC): 5 PT Plan Treatment/Plan Treatment Plan: Continue Plan of Care Treatment Plan: Bed Mobility, Education, Functional Activity Sheyla, Functional Strength, Gait, Safety, Therapeutic Exercise, Transfers Treatment Duration: Sep 14, 2021 Frequency: 11 times per week Estimated Hrs Per Day: .5 hour per day Patient and/or Family Agrees t: Yes Time/GCodes Time In: 730 Time Out: 758 Total Billed Treatment Time: 28 Total Billed Treatment 1 visit FA 15 min EX 13 min ARABELLA SANFORD PT Aug 29, 2021 10:50
--- NOTE | 2021-08-29 10:52 | Tele-ICU Progress Note ---
Subjective Date Seen by a Provider: Aug 29, 2021 Time Seen by a Provider: 07:35 Sepsis Event Evaluation Height, Weight, BMI Height: 5'9.00" Weight: 175lbs. 0.0oz. [id number]; 32.67 BMI Method:Stated Focused Exam Cardiovascular: Regular Rate, Rhythm Capillary Refill: Less Than 3 Seconds Exam Exam Patient acknowledged, consented, and participated in this virtual visit which was conducted using real time audio/video Vital Signs Date Time Temp Pulse Resp B/P (MAP) Pulse Ox O2 Delivery O2 Flow Rate FiO2 08/29/21 10:00 84 14 129/58 95 Nasal Cannula 2.00 08/29/21 09:00 88 18 134/58 93 Nasal Cannula 2.00 08/29/21 08:00 94 Room Air 08/29/21 08:00 114 32 119/62 Nasal Cannula 2.00 08/29/21 07:57 99 Nasal Cannula 2.00 08/29/21 07:30 36.6 08/29/21 07:00 89 16 133/59 97 Nasal Cannula 2.00 08/29/21 06:36 87 08/29/21 06:00 87 18 132/57 98 Nasal Cannula 2.00 08/29/21 05:00 92 17 133/61 98 Nasal Cannula 2.00 08/29/21 04:00 113 18 121/52 98 Nasal Cannula 2.00 08/29/21 03:44 96 Nasal Cannula 2.00 08/29/21 03:43 36.7 Nasal Cannula 2.00 08/29/21 03:00 109 16 152/75 97 Nasal Cannula 2.00 08/29/21 02:00 83 20 122/52 94 Nasal Cannula 2.00 08/29/21 01:00 83 08/29/21 01:00 82 20 125/51 94 Nasal Cannula 2.00 08/29/21 00:09 36.4 08/29/21 00:00 90 20 132/56 95 Nasal Cannula 2.00 08/28/21 23:59 96 Room Air 08/28/21 23:00 83 21 124/52 96 Nasal Cannula 2.00 08/28/21 22:00 89 15 120/51 95 Nasal Cannula 2.00 08/28/21 21:00 93 21 122/52 95 Nasal Cannula 2.00 08/28/21 20:23 94 Room Air 08/28/21 20:00 96 Room Air 08/28/21 20:00 36.5 08/28/21 20:00 95 24 129/49 95 Nasal Cannula 2.00 08/28/21 19:00 138 08/28/21 19:00 116 21 112/52 94 Nasal Cannula 2.00 08/28/21 18:00 144 20 118/61 95 Nasal Cannula 2.00 08/28/21 17:00 116 22 103/47 95 Nasal Cannula 2.00 08/28/21 16:00 94 Room Air 08/28/21 16:00 112 22 101/50 95 Nasal Cannula 2.00 08/28/21 16:00 36.6 08/28/21 15:00 117 21 119/43 93 Nasal Cannula 2.00 08/28/21 14:49 36.0 118 95 2 08/28/21 14:20 95 Nasal Cannula 2.00 08/28/21 14:00 129 23 127/55 94 Nasal Cannula 2.00 08/28/21 13:00 117 21 130/52 93 Nasal Cannula 2.00 08/28/21 13:00 123 08/28/21 12:00 120 18 122/50 94 Nasal Cannula 2.00 08/28/21 12:00 94 Room Air 08/28/21 11:49 36.0 I & O 08/29/21 06:59 Intake Total 2480 ml Output Total 3725 ml Balance -1245 ml Height & Weight Height: 5'9.00" Weight: 175lbs. 0.0oz. 79.450432mo; 32.67 BMI Method:Stated General Appearance: No Apparent Distress, WD/WN; No Anxious, No Chronically ill, No Cachetic, No Mild Distress, No Moderate Distress, No Obese, No Severe Distress, No Thin, No Other HEENT: PERRL/EOMI; No TMs Normal, No Normal ENT Inspection, No Pharynx Normal; Moist Mucous Membranes; No Pale Conjunctivae (L), No Pale Conjunctivae (R), No Pharyngeal Erythema, No Photophobia, No Scleral Icterus (L), No Scleral Icterus (R), No TM Abnormal (L), No TM Abnormal (R), No Tonsillar Exudate, No Tonsillar Enlargement, No Other Neck: No Full Range of Motion; Normal Inspection; No Non Tender; Supple; No Carotid Bruit, No JVD, No Limited Range of Motion, No Lymphadenopathy (L), No Lymphadenopathy (R), No Tender Lateral, No Tender Midline, No Thyromegaly, No Other Respiratory: No Accessory Muscle Use, No Respiratory Distress Cardiovascular: Regular Rate, Rhythm; No No Edema, No No Gallop, No No JVD, No No Murmur, No Normal Peripheral Pulses, No Bradycardia, No Diastolic Murmur, No Systolic Murmur, No Extra Beats, No Friction Rub, No Gallop/S3, No Gallop/S4, No Irregularly Irregular, No JVD, No Tachycardia, No Other Capillary Refill: Less Than 3 Seconds Gastrointestinal: normal bowel sounds, non tender; No soft, No no organomegaly, No no pulsatile mass, No abnormal bowel sounds, No distended, No guarding, No rebound, No tenderness, No hernia, No mass, No hepatomegaly, No spleenomegaly, No other Extremity: No Normal Capillary Refill, No Normal Inspection, No Normal Range of Motion, No Non Tender; No Calf Tenderness, No Pedal Edema; No Calf Tenderness, No Inflammation, No Pedal Edema, No Pelvis Stable, No Slow Capillary Refill, No Swelling, No Other Neurologic/Psychiatric: Alert, Oriented x3, Normal Mood/Affect Skin: Normal Color, Warm/Dry Results Lab Laboratory Tests 08/27/21 04:13 08/27/21 04:15 08/28/21 04:41 08/29/21 04:45 Laboratory Tests 08/28/21 04:41 08/29/21 04:45 Assessment/Plan Assessment/Plan Medical Student , Progress Note Available chart/ vitals / labs / Images reviewed Assessment performed by medical student Discussed with RN Events overnight : n/a Afebrile I/O = even Drips: Pressors: , hemodynamically stable Consultants: Hospital course: 08/21) 70F Admitted s/p fall left hip fracture, ?UTI (08/22) S/P ORIF left Hip. (08/24) Increase in WBC. started on antibiotics (08/25) Transferred to ICU for New Atrial Fibrillation (RVR). Cardizem drip started. Hypotension, cardizem stopped. Fluids given 08/27 - EE followed by elec CV - back to afib 08/28 - converted to sinus rhythm A/P PAF with RVR ( no PE ) - PER CARDS- dig - echo - 08-26-21: LVEF 55-60%. PRSP 30-35 -08/27- EE followed by elec CV - back to a fib - amio gtt AC - eliquis - 08/28 - converted to SR while sleeping per mine shifter nurse, will transfer to acute rehab unit Acute rersp failure - on 2 l O2 now , CT 08/24 - no PE - PNA and small effusions RLL PNA ( by CT ) - on empiric abx - PNA vs UTI -cefepime started - GIVEN PERSISTENT INFILTRATE ON CXR WILL CONT ABX 1 MORE DAY AND FOLLOW S/p nonsyncopal fall on 08/21/2021 - Intramedullary nailing of left intertrochanteric femur fracture on 08/22/2021 - splint L wrist on 08/22/21 - pain control Gallstone in the neck of the gallbladder with mildly distended gallbladder by CT - monitor symptoms Lines : periph (Central Line Necessity Reviewed) [place]oud: removed yesterday OG: Nutrition: PO Analgesia: PO Anxiety/ delirium VTE Prophylaxis: eliquis Stress Ulcer Prophylaxis: po Plans in collaboration with bedside consultants and IM MDs. Discussed with RN to reach out if any questions or concerns A total of 20 minutes of critical care time was devoted to this patient today, required to treat and/or prevent further deterioration of critical care condition ( as above) MARIETTA JARAMILLO Aug 29, 2021 10:52
[2021-08-29] MEDS ORDERED: ALBU2.5V4 INH ×2 (11:37)
[2021-08-29] MEDS ORDERED: APIX5TAB PO (11:37)
[2021-08-29] MEDS ORDERED: AMIO200T6 PO (11:37)
[2021-08-29] MEDS ORDERED: CYAN-41 PO (11:37)
[2021-08-29] MEDS ORDERED: IRON100V2 IV (11:37)
[2021-08-29] MEDS ORDERED: DILT240C91 PO (11:37)
[2021-08-29] MEDS ORDERED: CEFE1FRO IV (11:37)
--- NOTE | 2021-08-29 11:38 | Discharge Summary ---
Diagnosis/Chief Complaint Date of Admission Aug 25, 2021 at 00:13 Date of Discharge Discharge Date: Aug 29, 2021 Discharge Diagnosis New onset a-fib 08/29/2021: Patient converted to NSR maintain on amiodarone p.o. Amiodarone started, not yet rate-controlled Dr. Crawley will attempt a second Cardioversion tomorrow (08/29/2021) after 24 hrs on amiodarone Eliquis for stroke ppx Telemetry Continue to monitor Lobar pneumonia involving the right lower lobe and dependent right upper lobe Continue Cefepime Wean oxygen as able Anemia (normo-cytic) Hgb 8.1 Continue to monitor Constipation New onset diarrhea, possibly from bowel regimen Monitor Comminuted intertrochanteric left femoral fracture Distal radial fracture Osteoporosis Continue pain regimen PT/OT will assess Goal is to do some PT/OT today, which Jane agreed to already on alendronate and calcium supplement at home HTN HLD Hold antihypertensives due to relative hypotension on cardizem BP stabilized at 127/78 this morning, continue to monitor Continue statin Hypothyroidism TSH: 0.13, hold levothyroxine for now Discharge Summary Discharge Physical Examination Allergies: Coded Allergies: No Known Drug Allergies (Unverified , 01/17/19) Vitals & I&Os Vital Signs Date Time Temp Pulse Resp B/P (MAP) Pulse Ox O2 Delivery O2 Flow Rate FiO2 08/29/21 11:40 36.2 08/29/21 11:00 76 18 120/55 95 Nasal Cannula 2.00 08/28/21 14:49 2 General Appearance: Alert, Oriented X3, Cooperative Respiratory: Clear to Auscultation Cardiovascular: Regular Rate Psych/Mental Status: Mental Status NL Hospital Course Was the Problem List Reviewed?: Yes CC/HPI: Jane Case is a 70 yo female, previously in rehab, who presented for evaluation and management of A Fib with RVR and penumonia. Jane was admitted to ICU 5 on 08/25/21; over the course of her admission, Dr Crawley was contacted for a cardiology consultation; He attempted cardioversion on 08/27/21, which was unsuccessful. Dr. Crawley recommended to remain on amiodarone for 24 Hrs, and reassess for repeat cardioversion. Overnight on 08/28/2021, Jane spontaneously went back into sinus rhythm, and was cleared by Dr. Crawley to return to rehab on floor 2. Jane remains on Cefepime for lobar pneumonia. Today, Jane is more conversational, alert, and was sitting in a chair. She states that she was able to have a bowel movement last night on the commode, but still does not have much of an appetite. She also reports that she was able to do light physical therapy last night (08/28/21) and this morning (08/29/21), which was primarily focused on bed motility, and sit to stand. Jane has expressed refusal of physical therapy multiple times during her stay, but reports that she will complete therapy on second floor rehabilitation. NORTHNORMA 08/29/21 1224: Labs (last 24 hrs) Laboratory Tests 08/25/21 04:55: White Blood Count 17.2H, Red Blood Count 2.83L, Hemoglobin 8.4L, Hematocrit 26L, Mean Corpuscular Volume 91, Mean Corpuscular Hemoglobin 30, Mean Corpuscular Hemoglobin Concent 33, Red Cell Distribution Width 13.4, Platelet Count 132, Mean Platelet Volume 9.7, Immature Granulocyte % (Auto) 1, Neutrophils (%) (Auto) 82H, Lymphocytes (%) (Auto) 10L, Monocytes (%) (Auto) 7, Eosinophils (%) (Auto) 0, Basophils (%) (Auto) 0, Neutrophils # (Auto) 14.0H, Lymphocytes # (Auto) 1.7, Monocytes # (Auto) 1.3H, Eosinophils # (Auto) 0.1, Basophils # (Auto) 0.0, Immature Granulocyte # (Auto) 0.1, Neutrophils % (Manual) 77, Lymphocytes % (Manual) 13, Monocytes % (Manual) 7, Band Neutrophils 3, Sodium Level 131L, Potassium Level 4.2, Chloride Level 100, Carbon Dioxide Level 23, Anion Gap 8, Blood Urea Nitrogen 10, Creatinine 0.69, Estimat Glomerular Filtration Rate 84, BUN/Creatinine Ratio 14, Glucose Level 135H, Calcium Level 8.3L, Corrected Calcium 9.3, Phosphorus Level 2.3, Magnesium Level 1.9, Total Bilirubin 0.4, Aspartate Amino Transf (AST/SGOT) 23, Alanine Aminotransferase (ALT/SGPT) 22, Alkaline Phosphatase 68, Total Protein 5.0L, Albumin 2.7L, Thyroid Stimulating Hormone (TSH) 0.13L 08/26/21 05:45: White Blood Count 12.5H, Red Blood Count 2.56L, Hemoglobin 7.6L, Hematocrit 23L, Mean Corpuscular Volume 91, Mean Corpuscular Hemoglobin 30, Mean Corpuscular Hemoglobin Concent 33, Red Cell Distribution Width 13.5, Platelet Count 145, Mean Platelet Volume 9.4, Immature Granulocyte % (Auto) 1, Neutrophils (%) (Auto) 77H, Lymphocytes (%) (Auto) 13, Monocytes (%) (Auto) 8, Eosinophils (%) (Auto) 1, Basophils (%) (Auto) 0, Neutrophils # (Auto) 9.7H, Lymphocytes # (Auto) 1.6, Monocytes # (Auto) 1.0, Eosinophils # (Auto) 0.1, Basophils # (Auto) 0.0, Immature Granulocyte # (Auto) 0.1, Sodium Level 135, Potassium Level 4.8, Chloride Level 104, Carbon Dioxide Level 23, Anion Gap 8, Blood Urea Nitrogen 18, Creatinine 0.71, Estimat Glomerular Filtration Rate 81, BUN/Creatinine Ratio 25, Glucose Level 116H, Calcium Level 8.3L, Corrected Calcium 9.5, Phosphorus Level 2.5, Magnesium Level 2.0, Total Bilirubin 0.4, Aspartate Amino Transf (AST/SGOT) 40H, Alanine Aminotransferase (ALT/SGPT) 39, Alkaline Phosphatase 73, Total Protein 4.8L, Albumin 2.5L, Percent Immature Platelet Fraction 2.0, Iron Level 16L, Vitamin B12 Level 308 08/27/21 04:13: White Blood Count 14.1H, Red Blood Count 2.82L, Hemoglobin 8.3L, Hematocrit 26L, Mean Corpuscular Volume 92, Mean Corpuscular Hemoglobin 29, Mean Corpuscular Hemoglobin Concent 32, Red Cell Distribution Width 13.6, Platelet Count 183, Mean Platelet Volume 10.1, Immature Granulocyte % (Auto) 1, Neutrophils (%) (Auto) 77H, Lymphocytes (%) (Auto) 14, Monocytes (%) (Auto) 8, Eosinophils (%) (Auto) 1, Basophils (%) (Auto) 0, Neutrophils # (Auto) 10.8H, Lymphocytes # (Auto) 1.9, Monocytes # (Auto) 1.1H, Eosinophils # (Auto) 0.1, Basophils # (Auto ) 0.0, Immature Granulocyte # (Auto) 0.1 08/27/21 04:15: Sodium Level 133L, Potassium Level 4.6, Chloride Level 102, Carbon Dioxide Level 22, Anion Gap 9, Blood Urea Nitrogen 15, Creatinine 0.60, Estimat Glomerular Filtration Rate 99, BUN/Creatinine Ratio 25, Glucose Level 114H, Calcium Level 8.5, Corrected Calcium 9.6, Phosphorus Level 2.6, Magnesium Level 2.1, Total Bilirubin 0.5, Aspartate Amino Transf (AST/SGOT) 46H, Alanine Aminotransferase (ALT/SGPT) 51, Alkaline Phosphatase 98, Total Protein 5.1L, Albumin 2.6L 08/28/21 04:41: White Blood Count 12.7H, Red Blood Count 2.76L, Hemoglobin 8.1L, Hematocrit 25L, Mean Corpuscular Volume 91, Mean Corpuscular Hemoglobin 29, Mean Corpuscular Hemoglobin Concent 32, Red Cell Distribution Width 14.0, Platelet Count 207, Mean Platelet Volume 9.7, Immature Granulocyte % (Auto) 2, Neutrophils (%) (Auto ) 69, Lymphocytes (%) (Auto) 17, Monocytes (%) (Auto) 11, Eosinophils (%) (Auto) 1, Basophils (%) (Auto) 0, Neutrophils # (Auto) 8.7H, Lymphocytes # (Auto) 2.2, Monocytes # (Auto) 1.4H, Eosinophils # (Auto) 0.1, Basophils # (Auto) 0.0, Immature Granulocyte # (Auto) 0.2H, Sodium Level 133L, Potassium Level 4.5, Chloride Level 101, Carbon Dioxide Level 22, Anion Gap 10, Blood Urea Nitrogen 15, Creatinine 0.64, Estimat Glomerular Filtration Rate 91, BUN/Creatinine Ratio 23, Glucose Level 115H, Calcium Level 8.4L, Corrected Calcium 9.6, Phosphorus Level 3.1, Magnesium Level 2.3, Total Bilirubin 0.5, Aspartate Amino Transf (AST/SGOT) 54H, Alanine Aminotransferase (ALT/SGPT) 63H, Alkaline Phosphatase 99, Total Protein 5.1L, Albumin 2.5L, Procalcitonin 0.25H, Free Thyroxine 0.97 08/29/21 04:45: White Blood Count 13.8H, Red Blood Count 2.79L, Hemoglobin 8.2L, Hematocrit 25L, Mean Corpuscular Volume 91, Mean Corpuscular Hemoglobin 29, Mean Corpuscular Hemoglobin Concent 32, Red Cell Distribution Width 14.2, Platelet Count 248, Mean Platelet Volume 9.4, Immature Granulocyte % (Auto) 4, Neutrophils (%) (Auto) 69, Lymphocytes (%) (Auto) 16, Monocytes (%) (Auto) 10, Eosinophils (%) (Auto) 1, Basophils (%) (Auto) 0, Neutrophils # (Auto) 9.6H, Lymphocytes # (Auto) 2.2, Monocytes # (Auto) 1.4H, Eosinophils # (Auto) 0.1, Basophils # (Auto) 0.0, Immature Granulocyte # (Auto) 0.5H, Sodium Level 134L, Potassium Level 4.6, Chloride Level 102, Carbon Dioxide Level 23, Anion Gap 9, Blood Urea Nitrogen 17, Creatinine 0.70, Estimat Glomerular Filtration Rate 82, BUN/Creatinine Ratio 24, Glucose Level 119H, Calcium Level 8.5, Corrected Calcium 9.6, Phosphorus Level 2.9, Magnesium Level 2.3, Total Bilirubin 0.5, Aspartate Amino Transf (AST/SGOT) 50H, Alanine Aminotransferase (ALT/SGPT) 66H, Alkaline Phosphatase 122, Total Protein 5.1L, Albumin 2.6L Pending Labs Laboratory Tests 08/25/21 04:55: White Blood Count 17.2, Red Blood Count 2.83, Hemoglobin 8.4, Hematocrit 26, Mean Corpuscular Volume 91, Mean Corpuscular Hemoglobin 30, Mean Corpuscular Hemoglobin Concent 33, Red Cell Distribution Width 13.4, Platelet Count 132, Mean Platelet Volume 9.7, Immature Granulocyte % (Auto) 1, Neutrophils (%) (Auto) 82, Lymphocytes (%) (Auto) 10, Monocytes (%) (Auto) 7, Eosinophils (%) (Auto) 0, Basophils (%) (Auto) 0, Neutrophils # (Auto) 14.0, Lymphocytes # (Auto) 1.7, Monocytes # (Auto) 1.3, Eosinophils # (Auto) 0.1, Basophils # (Auto) 0.0, Immature Granulocyte # (Auto) 0.1, Neutrophils % (Manual) 77, Lymphocytes % (Manual) 13, Monocytes % (Manual) 7, Band Neutrophils 3, Sodium Level 131, Potassium Level 4.2, Chloride Level 100, Carbon Dioxide Level 23, Anion Gap 8, Blood Urea Nitrogen 10, Creatinine 0.69, Estimat Glomerular Filtration Rate 84, BUN/Creatinine Ratio 14, Glucose Level 135, Calcium Level 8.3, Corrected Calcium 9.3, Phosphorus Level 2.3, Magnesium Level 1.9, Total Bilirubin 0.4, Aspartate Amino Transf (AST/SGOT) 23, Alanine Aminotransferase (ALT/SGPT) 22, Alkaline Phosphatase 68, Total Protein 5.0, Albumin 2.7, Thyroid Stimulating Hormone (TSH) 0.13 08/26/21 05:45: White Blood Count 12.5, Red Blood Count 2.56, Hemoglobin 7.6, Hematocrit 23, Mean Corpuscular Volume 91, Mean Corpuscular Hemoglobin 30, Mean Corpuscular Hemoglobin Concent 33, Red Cell Distribution Width 13.5, Platelet Count 145, Mean Platelet Volume 9.4, Immature Granulocyte % (Auto) 1, Neutrophils (%) (Auto) 77, Lymphocytes (%) (Auto) 13, Monocytes (%) (Auto) 8, Eosinophils (%) (Auto) 1, Basophils (%) (Auto) 0, Neutrophils # (Auto) 9.7, Lymphocytes # (Auto) 1.6, Monocytes # (Auto) 1.0, Eosinophils # (Auto) 0.1, Basophils # (Auto) 0.0, Immature Granulocyte # (Auto) 0.1, Sodium Level 135, Potassium Level 4.8, Chloride Level 104, Carbon Dioxide Level 23, Anion Gap 8, Blood Urea Nitrogen 18, Creatinine 0.71, Estimat Glomerular Filtration Rate 81, BUN/Creatinine Ratio 25, Glucose Level 116, Calcium Level 8.3, Corrected Calcium 9.5, Phosphorus Level 2.5, Magnesium Level 2.0, Total Bilirubin 0.4, Aspartate Amino Transf (AST/SGOT) 40, Alanine Aminotransferase (ALT/SGPT) 39, Alkaline Phosphatase 73, Total Protein 4.8, Albumin 2.5, Percent Immature Platelet Fraction 2.0, Iron Level 16, Vitamin B12 Level 308 08/27/21 04:13: White Blood Count 14.1, Red Blood Count 2.82, Hemoglobin 8.3, Hematocrit 26, Mean Corpuscular Volume 92, Mean Corpuscular Hemoglobin 29, Mean Corpuscular Hemoglobin Concent 32, Red Cell Distribution Width 13.6, Platelet Count 183, Mean Platelet Volume 10.1, Immature Granulocyte % (Auto) 1, Neutrophils (%) (Auto) 77, Lymphocytes (%) (Auto) 14, Monocytes (%) (Auto) 8, Eosinophils (%) (Auto) 1, Basophils (%) (Auto) 0, Neutrophils # (Auto) 10.8, Lymphocytes # (Auto) 1.9, Monocytes # (Auto) 1.1, Eosinophils # (Auto) 0.1, Basophils # (Auto) 0.0, Immature Granulocyte # (Auto) 0.1 08/27/21 04:15: Sodium Level 133, Potassium Level 4.6, Chloride Level 102, Carbon Dioxide Level 22, Anion Gap 9, Blood Urea Nitrogen 15, Creatinine 0.60, Estimat Glomerular Filtration Rate 99, BUN/Creatinine Ratio 25, Glucose Level 114, Calcium Level 8.5, Corrected Calcium 9.6, Phosphorus Level 2.6, Magnesium Level 2.1, Total Bilirubin 0.5, Aspartate Amino Transf (AST/SGOT) 46, Alanine Aminotransferase (ALT/SGPT) 51, Alkaline Phosphatase 98, Total Protein 5.1, Albumin 2.6 08/28/21 04:41: White Blood Count 12.7, Red Blood Count 2.76, Hemoglobin 8.1, Hematocrit 25, Mean Corpuscular Volume 91, Mean Corpuscular Hemoglobin 29, Mean Corpuscular Hemoglobin Concent 32, Red Cell Distribution Width 14.0, Platelet Count 207, Mean Platelet Volume 9.7, Immature Granulocyte % (Auto) 2, Neutrophils (%) (Auto) 69, Lymphocytes (%) (Auto) 17, Monocytes (%) (Auto) 11, Eosinophils (%) (Auto) 1, Basophils (%) (Auto) 0, Neutrophils # (Auto) 8.7, Lymphocytes # (Auto) 2.2, Monocytes # (Auto) 1.4, Eosinophils # (Auto) 0.1, Basophils # (Auto) 0.0, Immature Granulocyte # (Auto) 0.2, Sodium Level 133, Potassium Level 4.5, Chloride Level 101, Carbon Dioxide Level 22, Anion Gap 10, Blood Urea Nitrogen 15, Creatinine 0.64, Estimat Glomerular Filtration Rate 91, BUN/Creatinine Ratio 23, Glucose Level 115, Calcium Level 8.4, Corrected Calcium 9.6, Phosphorus Level 3.1, Magnesium Level 2.3, Total Bilirubin 0.5, Aspartate Amino Transf (AST/SGOT) 54, Alanine Aminotransferase (ALT/SGPT) 63, Alkaline Phosphatase 99, Total Protein 5.1, Albumin 2.5, Procalcitonin 0.25, Free Thyroxine 0.97 08/29/21 04:45: White Blood Count 13.8, Red Blood Count 2.79, Hemoglobin 8.2, Hematocrit 25, Mean Corpuscular Volume 91, Mean Corpuscular Hemoglobin 29, Mean Corpuscular Hemoglobin Concent 32, Red Cell Distribution Width 14.2, Platelet Count 248, Mean Platelet Volume 9.4, Immature Granulocyte % (Auto) 4, Neutrophils (%) (Auto) 69, Lymphocytes (%) (Auto) 16, Monocytes (%) (Auto) 10, Eosinophils (%) (Auto) 1, Basophils (%) (Auto) 0, Neutrophils # (Auto) 9.6, Lymphocytes # (Auto) 2.2, Monocytes # (Auto) 1.4, Eosinophils # (Auto) 0.1, Basophils # (Auto) 0.0, Immature Granulocyte # (Auto) 0.5, Sodium Level 134, Potassium Level 4.6, C hloride Level 102, Carbon Dioxide Level 23, Anion Gap 9, Blood Urea Nitrogen 17, Creatinine 0.70, Estimat Glomerular Filtration Rate 82, BUN/Creatinine Ratio 24, Glucose Level 119, Calcium Level 8.5, Corrected Calcium 9.6, Phosphorus Level 2.9, Magnesium Level 2.3, Total Bilirubin 0.5, Aspartate Amino Transf (AST/SGOT) 50, Alanine Aminotransferase (ALT/SGPT) 66, Alkaline Phosphatase 122, Total Protein 5.1, Albumin 2.6 Discharge Home Medications: Active Scripts Active Vitamin B-12 (Cyanocobalamin (Vitamin B-12)) 1,000 Mcg Tablet 1,000 Mcg PO DAILY@0700 90 Days Diltiazem 24Hr ER (Diltiazem HCl) 240 Mg Cap.er.24h 240 Mg PO DAILY 90 Days Amiodarone HCl 200 Mg Tablet 400 Mg PO BID 90 Days Eliquis (Apixaban) 5 Mg Tablet 5 Mg PO BID 90 Days Venofer (Iron Sucrose Complex) 200 Mg/10 Ml Vial 200 Mg IV Q48H@09 Albuterol Sulfate 2.5 Mg/3 Ml Vial.neb 2.5 Mg INH Q2HR PRN 10 Days Albuterol Sulfate 2.5 Mg/3 Ml Vial.neb 2.5 Mg INH RTBID 10 Days Cefepime 1 gm Injection (Cefepime HCl/Dextrose, Iso-Osm) 1 Gm/50 Ml Froz.piggy 1 Gm IV Q6H 5 Days Reported Potassium Chloride 10 Meq Tab.er.prt 10 Meq PO DAILY Pantoprazole Sodium 40 Mg Tablet.dr 40 Mg PO DAILY Vitamin D3 (Cholecalciferol (Vitamin D3)) 125 Mcg Capsule 125 Mcg PO DAILY Xalatan (Latanoprost) 2.5 Ml Drops 1 Drop OU HS Josue Mag Zinc + D3 Tablet (Calcium Carb/D3/Magnesium/Zinc) 1 Each Tablet 1 Tab PO DAILY Timolol Maleate 0.5% (Timolol Maleate) 5 Ml Drops 1 Drop OU BID Furosemide 20 Mg Tablet 20 Mg PO DAILY Simvastatin 20 Mg Tablet 20 Mg PO HS Instructions to patient/family Please see electronic discharge instructions given to patient. JENIFFER VAZ DO Aug 29, 2021 11:38
--- NOTE | 2021-08-29 12:24 | Progress Note ---
[facility] 08/29/21 1224: Progress Note CC/HPI: Jane Rudolph is a 70 yo female, previously in rehab, who presented for evaluation and management of A Fib with RVR and penumonia. Jane was admitted to ICU 5 on 08/25/21; over the course of her admission, Dr Crawley was contacted for a cardiology consultation; He attempted cardioversion on 08/27/21, which was unsuccessful. Dr. Crawley recommended to remain on amiodarone for 24 Hrs, and reassess for repeat cardioversion. Overnight on 08/28/2021, Jane spontaneously went back into sinus rhythm, and was cleared by Dr. Crawley to return to rehab on floor 2. Jane remains on Cefepime for lobar pneumonia. Today, Jane is more conversational, alert, and was sitting in a chair. She states that she was able to have a bowel movement last night on the commode, but still does not have much of an appetite. She also reports that she was able to do light physical therapy last night (08/28/21) and this morning (08/29/21), which was primarily focused on bed motility, and sit to stand. Jane has expressed refusal of physical therapy multiple times during her stay, but reports that she will complete therapy on second floor rehabilitation. Laboratory Tests 08/27/21 04:13: White Blood Count 14.1H, Red Blood Count 2.82L, Hemoglobin 8.3L, Hematocrit 26L, Mean Corpuscular Volume 92, Mean Corpuscular Hemoglobin 29, Mean Corpuscular Hemoglobin Concent 32, Red Cell Distribution Width 13.6, Platelet Count 183, Mean Platelet Volume 10.1, Immature Granulocyte % (Auto) 1, Neutrophils (%) (Auto) 77H, Lymphocytes (%) (Auto) 14, Monocytes (%) (Auto) 8, Eosinophils (%) (Auto) 1, Basophils (%) (Auto) 0, Neutrophils # (Auto) 10.8H, Lymphocytes # (Auto) 1.9, Monocytes # (Auto) 1.1H, Eosinophils # (Auto) 0.1, Basophils # (Auto) 0.0, Immature Granulocyte # (Auto) 0.1 08/27/21 04:15: Sodium Level 133L, Potassium Level 4.6, Chloride Level 102, Carbon Dioxide Level 22, Anion Gap 9, Blood Urea Nitrogen 15, Creatinine 0.60, Estimat Glomerular Filtration Rate 99, BUN/Creatinine Ratio 25, Glucose Level 114H, Calcium Level 8.5, Corrected Calcium 9.6, Phosphorus Level 2.6, Magnesium Level 2.1, Total Bilirubin 0.5, Aspartate Amino Transf (AST/SGOT) 46H, Alanine Aminotransferase (ALT/SGPT) 51, Alkaline Phosphatase 98, Total Protein 5.1L, Albumin 2.6L 08/28/21 04:41: White Blood Count 12.7H, Red Blood Count 2.76L, Hemoglobin 8.1L, Hematocrit 25L, Mean Corpuscular Volume 91, Mean Corpuscular Hemoglobin 29, Mean Corpuscular Hemoglobin Concent 32, Red Cell Distribution Width 14.0, Platelet Count 207, Mean Platelet Volume 9.7, Immature Granulocyte % (Auto) 2, Neutrophils (%) (Auto) 69, Lymphocytes (%) (Auto) 17, Monocytes (%) (Auto) 11, Eosinophils (%) (Auto) 1, Basophils (%) (Auto) 0, Neutrophils # (Auto) 8.7H, Lymphocytes # (Auto) 2.2, Monocytes # (Auto) 1.4H, Eosinophils # (Auto) 0.1, Basophils # (Auto) 0.0, Immature Granulocyte # (Auto) 0.2H, Sodium Level 133L, Potassium Level 4.5, Chloride Level 101, Carbon Dioxide Level 22, Anion Gap 10, Blood Urea Nitrogen 15, Creatinine 0.64, Estimat Glomerular Filtration Rate 91, BUN/Creatinine Ratio 23, Glucose Level 115H, Calcium Level 8.4L, Corrected Calcium 9.6, Phosphorus Level 3.1, Magnesium Level 2.3, Total Bilirubin 0.5, Aspartate Amino Transf (AST/SGOT) 54H, Alanine Aminotransferase (ALT/SGPT) 63H, Alkaline Phosphatase 99, Total Protein 5.1L, Albumin 2.5L, Procalcitonin 0.25H, Free Thyroxine 0.97 08/29/21 04:45: White Blood Count 13.8H, Red Blood Count 2.79L, Hemoglobin 8.2L, Hematocrit 25L, Mean Corpuscular Volume 91, Mean Corpuscular Hemoglobin 29, Mean Corpuscular Hemoglobin Concent 32, Red Cell Distribution Width 14.2, Platelet Count 248, Mean Platelet Volume 9.4, Immature Granulocyte % (Auto) 4, Neutrophils (%) (Auto) 69, Lymphocytes (%) (Auto) 16, Monocytes (%) (Auto) 10, Eosinophils (%) (Auto) 1, Basophils (%) (Auto) 0, Neutrophils # (Auto) 9.6H, Lymphocytes # (Auto) 2.2, Monocytes # (Auto) 1.4H, Eosinophils # (Auto) 0.1, Basophils # ( Auto) 0.0, Immature Granulocyte # (Auto) 0.5H, Sodium Level 134L, Potassium Level 4.6, Chloride Level 102, Carbon Dioxide Level 23, Anion Gap 9, Blood Urea Nitrogen 17, Creatinine 0.70, Estimat Glomerular Filtration Rate 82, BUN/Creatinine Ratio 24, Glucose Level 119H, Calcium Level 8.5, Corrected Calcium 9.6, Phosphorus Level 2.9, Magnesium Level 2.3, Total Bilirubin 0.5, Aspartate Amino Transf (AST/SGOT) 50H, Alanine Aminotransferase (ALT/SGPT) 66H, Alkaline Phosphatase 122, Total Protein 5.1L, Albumin 2.6L VS - Last 72 Hours, by Label 08/26/21 08/26/21 08/26/21 08/26/21 15:29 16:00 16:30 16:44 Temp 36.1 Pulse 117 Resp 28 B/P (MAP) 115/66 Pulse Ox 92 95 O2 Delivery Nasal Cannula Nasal Cannula Nasal Cannula O2 Flow Rate 2.00 2.00 2.00 08/26/21 08/26/21 08/26/21 08/26/21 19:00 19:00 19:24 19:42 Temp 36.1 Pulse 103 116 Resp 23 B/P (MAP) 136/61 Pulse Ox 94 90 O2 Delivery Nasal Cannula Nasal Cannula O2 Flow Rate 1.50 2.00 08/26/21 08/26/21 08/26/21 08/26/21 20:00 21:42 22:00 23:00 Pulse 106 94 87 Resp 14 16 16 B/P (MAP) 115/55 125/63 97/58 Pulse Ox 92 97 97 95 O2 Delivery Nasal Cannula Nasal Cannula Nasal Cannula Nasal Cannula O2 Flow Rate 2.00 2.00 2.00 2.00 08/26/21 08/27/21 08/27/21 08/27/21 23:59 00:00 01:00 01:00 Pulse 109 120 120 Resp 17 17 B/P (MAP) 115/100 124/69 Pulse Ox 92 96 94 O2 Delivery Nasal Cannula Nasal Cannula Nasal Cannula O2 Flow Rate 2.00 2.00 2.00 08/27/21 08/27/21 08/27/21 08/27/21 02:00 03:00 04:00 04:00 Pulse 111 123 134 Resp 17 18 19 B/P (MAP) 112/56 120/49 124/63 Pulse Ox 94 95 92 94 O2 Delivery Nasal Cannula Nasal Cannula Nasal Cannula Nasal Cannula O2 Flow Rate 2.00 2.00 2.00 2.00 08/27/21 08/27/21 08/27/21 08/27/21 04:03 05:00 06:00 07:00 Temp 36.3 Pulse 112 135 131 Resp 20 19 B/P (MAP) 129/79 129/53 Pulse Ox 95 94 O2 Delivery Nasal Cannula Nasal Cannula O2 Flow Rate 2.00 2.00 08/27/21 08/27/21 08/27/21 08/27/21 07:00 07:50 07:54 08:00 Temp 36.0 Pulse 123 140 Resp 17 19 B/P (MAP) 122/70 127/94 Pulse Ox 97 95 95 O2 Delivery Nasal Cannula Nasal Cannula Nasal Cannula O2 Flow Rate 2.00 1.50 2.00 08/27/21 08/27/21 08/27/21 08/27/21 08:00 09:00 09:03 10:00 Pulse 96 107 112 Resp 19 19 B/P (MAP) 101/54 119/65 109/80 Pulse Ox 92 95 90 O2 Delivery Nasal Cannula Nasal Cannula Nasal Cannula O2 Flow Rate 2.00 2.00 2.00 08/27/21 08/27/21 08/27/21 08/27/21 10:46 11:00 12:00 12:00 Temp 36.8 Pulse 134 107 Resp 20 17 B/P (MAP) 120/61 127/78 Pulse Ox 96 92 98 O2 Delivery Nasal Cannula Nasal Cannula Nasal Cannula O2 Flow Rate 1.50 2.00 2.00 08/27/21 08/27/21 08/27/21 08/27/21 12:00 13:00 13:00 14:00 Pulse 99 103 113 Resp 20 19 B/P (MAP) 120/63 115/78 Pulse Ox 92 95 80 O2 Delivery Nasal Cannula Nasal Cannula Nasal Cannula O2 Flow Rate 2.00 2.00 2.00 08/27/21 08/27/21 08/27/21 08/27/21 14:24 15:00 16:00 16:00 Pulse 99 100 Resp 18 19 B/P (MAP) 101/68 107/57 Pulse Ox 94 92 96 O2 Delivery Nasal Cannula Nasal Cannula Nasal Cannula Nasal Cannula O2 Flow Rate 1.00 2.00 2.00 2.00 08/27/21 08/27/21 08/27/21 08/27/21 17:00 18:00 18:48 19:00 Pulse 99 112 101 Resp 23 17 B/P (MAP) 107/78 121/55 Pulse Ox 93 95 94 O2 Delivery Nasal Cannula Nasal Cannula Nasal Cannula O2 Flow Rate 2.00 2.00 1.00 08/27/21 08/27/21 08/27/21 08/27/21 19:00 19:54 20:00 20:00 Temp 36.7 Pulse 126 106 Resp 22 23 B/P (MAP) 110/61 122/43 Pulse Ox 88 92 95 O2 Delivery Nasal Cannula Nasal Cannula Nasal Cannula O2 Flow Rate 2.00 2.00 2.00 08/27/21 08/27/21 08/27/21 08/27/21 21:00 22:00 23:00 23:59 Pulse 106 108 91 Resp 18 23 18 B/P (MAP) 112/69 123/72 83/56 Pulse Ox 91 98 92 92 O2 Delivery Nasal Cannula Nasal Cannula Nasal Cannula Nasal Cannula O2 Flow Rate 2.00 2.00 2.00 2.00 08/28/21 08/28/21 08/28/21 08/28/21 00:00 01:00 01:00 02:00 Pulse 111 98 101 108 Resp 16 20 18 B/P (MAP) 82/40 97/52 105/45 Pulse Ox 95 98 99 O2 Delivery Nasal Cannula Nasal Cannula Nasal Cannula O2 Flow Rate 2.00 2.00 2.00 08/28/21 08/28/21 08/28/21 08/28/21 03:00 04:00 04:00 05:00 Pulse 126 135 98 Resp 21 21 B/P (MAP) 106/57 103/55 100/75 Pulse Ox 99 98 92 98 O2 Delivery Nasal Cannula Nasal Cannula Nasal Cannula Nasal Cannula O2 Flow Rate 2.00 2.00 2.00 2.00 08/28/21 08/28/21 08/28/21 08/28/21 06:00 07:00 07:00 07:16 Pulse 95 108 156 Resp 20 19 B/P (MAP) 112/57 125/68 Pulse Ox 98 98 96 O2 Delivery Nasal Cannula Nasal Cannula Nasal Cannula O2 Flow Rate 2.00 2.00 2.00 08/28/21 08/28/21 08/28/21 08/28/21 07:39 08:00 08:00 09:00 Temp 36.2 Pulse 118 111 Resp 18 19 B/P (MAP) 110/66 Pulse Ox 97 94 94 O2 Delivery Nasal Cannula Room Air Nasal Cannula O2 Flow Rate 2.00 2.00 08/28/21 08/28/21 08/28/21 08/28/21 10:00 10:23 11:49 12:00 Temp 36.0 Pulse 99 Resp 35 B/P (MAP) 123/55 Pulse Ox 95 94 94 O2 Delivery Nasal Cannula Nasal Cannula Room Air O2 Flow Rate 2.00 2.00 08/28/21 08/28/21 08/28/21 08/28/21 12:00 13:00 13:00 14:00 Pulse 120 123 117 129 Resp 18 21 23 B/P (MAP) 122/50 130/52 127/55 Pulse Ox 94 93 94 O2 Delivery Nasal Cannula Nasal Cannula Nasal Cannula O2 Flow Rate 2.00 2.00 2.00 08/28/21 08/28/21 08/28/21 08/28/21 14:20 14:49 15:00 16:00 Temp 36.0 36.6 Pulse 118 117 Resp 21 B/P (MAP) 119/43 Pulse Ox 95 95 93 O2 Delivery Nasal Cannula Nasal Cannula O2 Flow Rate 2.00 2.00 FiO2 2 08/28/21 08/28/21 08/28/21 08/28/21 16:00 16:00 17:00 18:00 Pulse 112 116 144 Resp 22 22 20 B/P (MAP) 101/50 103/47 118/61 Pulse Ox 95 94 95 95 O2 Delivery Nasal Cannula Room Air Nasal Cannula Nasal Cannula O2 Flow Rate 2.00 2.00 2.00 08/28/21 08/28/21 08/28/21 08/28/21 19:00 19:00 20:00 20:00 Temp 36.5 Pulse 116 138 95 Resp 21 24 B/P (MAP) 112/52 129/49 Pulse Ox 94 95 O2 Delivery Nasal Cannula Nasal Cannula O2 Flow Rate 2.00 2.00 08/28/21 08/28/21 08/28/21 08/28/21 20:00 20:23 21:00 22:00 Pulse 93 89 Resp 21 15 B/P (MAP) 122/52 120/51 Pulse Ox 96 94 95 95 O2 Delivery Room Air Room Air Nasal Cannula Nasal Cannula O2 Flow Rate 2.00 2.00 08/28/21 08/28/21 08/29/21 08/29/21 23:00 23:59 00:00 00:09 Temp 36.4 Pulse 83 90 Resp 21 20 B/P (MAP) 124/52 132/56 Pulse Ox 96 96 95 O2 Delivery Nasal Cannula Room Air Nasal Cannula O2 Flow Rate 2.00 2.00 08/29/21 08/29/21 08/29/21 08/29/21 01:00 01:00 02:00 03:00 Pulse 82 83 83 109 Resp 20 20 16 B/P (MAP) 125/51 122/52 152/75 Pulse Ox 94 94 97 O2 Delivery Nasal Cannula Nasal Cannula Nasal Cannula O2 Flow Rate 2.00 2.00 2.00 08/29/21 08/29/21 08/29/21 08/29/21 03:43 03:44 04:00 05:00 Temp 36.7 Pulse 113 92 Resp 18 17 B/P (MAP) 121/52 133/61 Pulse Ox 96 98 98 O2 Delivery Nasal Cannula Nasal Cannula Nasal Cannula Nasal Cannula O2 Flow Rate 2.00 2.00 2.00 2.00 08/29/21 08/29/21 08/29/21 08/29/21 06:00 06:36 07:00 07:30 Temp 36.6 Pulse 87 87 89 Resp 18 16 B/P (MAP) 132/57 133/59 Pulse Ox 98 97 O2 Delivery Nasal Cannula Nasal Cannula O2 Flow Rate 2.00 2.00 08/29/21 08/29/21 08/29/21 08/29/21 07:57 08:00 08:00 09:00 Pulse 114 88 Resp 32 18 B/P (MAP) 119/62 134/58 Pulse Ox 99 94 93 O2 Delivery Nasal Cannula Nasal Cannula Room Air Nasal Cannula O2 Flow Rate 2.00 2.00 2.00 08/29/21 08/29/21 08/29/21 10:00 11:00 11:40 Temp 36.2 Pulse 84 76 Resp 14 18 B/P (MAP) 129/58 120/55 Pulse Ox 95 95 O2 Delivery Nasal Cannula Nasal Cannula O2 Flow Rate 2.00 2.00 [facility] REC#: [id number] PT STATUS: ADM IN : 1950 PHYSICIAN: CARMELITA VAZ DO ADMIT DATE: 08/25/21/ICU Signed Date of Exam:08/28/21 CHEST 1 VIEW, AP/PA ONLY Indication: Pneumonia Upright portable chest shows normal heart size and vascularity. There is a right perihilar and basilar infiltrate. Small effusion on the right. There is no pneumothorax. IMPRESSION: Persistent right lung infiltrate which may be slightly worse compared to the 08/24/2021 study. Recommend continued follow-up. Dictated by: Dictated on workstation # [id number] Dict: 08/28/21646 Trans: 08/28/21917 [facility] [id number] Interpreted by: FERN CAMACHO MD Electronically signed by: FERN CAMACHO MD 08/28/21917 CARMELITA VAZ DO 08/29/212037: Supervisory-Addendum Brief Verification & Attestation Participated in pt care: history, MDM, physical Personally performed: exam, history, MDM, supervision of care Care discussed with: Medical Student Procedures: n/a Results interpretation: Verified all documentation Verification and Attestation of Medical Student E/M Service A medical student performed and documented this service in my presence. I reviewed and verified all information documented by the medical student and made modifications to such information, when appropriate. I personally performed the physical exam and medical decision making. Carmelita Vaz, Aug 29, 2021,20:37 NORMA KAT Aug 29, 2021 12:24 CARMELITA VAZ DO Aug 29, 2021 20:38
[2021-08-29] MEDS ORDERED: AMIODARONE 200 MG (CORDARONE) TAB PO SCH (21:00)
[2021-09-09] MEDS ORDERED: AMIODARONE 200 MG (CORDARONE) TAB PO SCH (09:00)
== END 2021-08-29 11:40 | DRG 308 ==
LOC: ICU 00:13
PROVIDERS: ADMIT Family Medicine; ATTEND Internal Medicine
PROC: 5A2204Z Restoration of Cardiac Rhythm, Single (ICD-10-PCS; principal; 2021-08-27)
DX: I48.91 Unspecified atrial fibrillation (principal); J96.00 Acute respiratory failure, unspecified whether with hypoxia or hypercapnia; J18.1 Lobar pneumonia, unspecified organism; I10 Essential (primary) hypertension; E78.5 Hyperlipidemia, unspecified; E11.9 Type 2 diabetes mellitus without complications; E89.0 Postprocedural hypothyroidism; Z79.899 Other long term (current) drug therapy; M81.0 Age-related osteoporosis without current pathological fracture; Z85.3 Personal history of malignant neoplasm of breast; Z92.3 Personal history of irradiation; S72.142D Displaced intertrochanteric fracture of left femur, subsequent encounter for closed fracture with routine healing; S52.502D Unspecified fracture of the lower end of left radius, subsequent encounter for closed fracture with routine healing; W19.XXXD Unspecified fall, subsequent encounter; I95.9 Hypotension, unspecified; D64.9 Anemia, unspecified; K59.00 Constipation, unspecified
CPT/HCPCS: 36415; 71045; 80053; 82607; 83540; 83735; 84100; 84145; 84439; 84443; 85007; 85025; 85027; 93005; 93306; 93312; 93320; 93325; 94640; 94664

== ENCOUNTER 2021-08-29 11:21 | Inpatient (IN) | payer MEDICARE ==
[~2021-08-29] VITALS: Ht 177.8 cm; Wt 97.4 kg
[2021-08-29] MEDS ORDERED: CEFE1FRO IV (11:37)
[2021-08-29] MEDS ORDERED: ALBU2.5V4 INH ×2 (11:37)
[2021-08-29] MEDS ORDERED: CYAN-41 PO (11:37)
[2021-08-29] MEDS ORDERED: AMIO200T6 PO (11:37)
[2021-08-29] MEDS ORDERED: APIX5TAB PO (11:37)
[2021-08-29] MEDS ORDERED: IRON100V2 IV (11:37)
[2021-08-29] MEDS ORDERED: DILT240C91 PO (11:37)
[2021-08-29] MEDS ORDERED: LACTULOSE SYRUP 10GM/15ML (ENULOSE) 30ML UDC PO PRN ×2 (11:45→15:15)
[2021-08-29] MEDS ORDERED: BISACODYL 10 MG SUPP (DULCOLAX) PR PRN ×2 (11:45→15:15)
[2021-08-29] MEDS ORDERED: DOCUSATE SODIUM 100 MG (COLACE) CAP PO PRN ×2 (11:45→15:15)
[2021-08-29] MEDS ORDERED: FLEET ENEMA ADULT 1 EA BTL PR PRN ×2 (11:45→15:15)
[2021-08-29] MEDS ORDERED: ACETAMINOPHEN 500 MG TAB (TYLENOL) PO PRN (11:45)
[2021-08-29] MEDS ORDERED: LOPERAMIDE 2 MG (IMODIUM) TABLET PO PRN ×2 (11:45→15:15)
[2021-08-29] MEDS ORDERED: CALCIUM CARBONATE 500 MG (TUMS) TAB.CHEW PO PRN ×2 (11:45→15:15)
[2021-08-29] MEDS ORDERED: ALPRAZolam 0.25 MG (XANAX) TAB PO PRN ×2 (11:45→15:15)
[2021-08-29] MEDS ORDERED: diphenhydrAMINE 25 MG TAB (BENADRYL) PO PRN ×2 (11:45→15:15)
[2021-08-29] MEDS ORDERED: guaiFENesin/CODEINE (ROBITUSSIN AC) 10ML UDC PO PRN ×2 (11:45→15:15)
[2021-08-29] MEDS ORDERED: ACETAMINOPHEN 325 MG TABLET PO PRN (12:30)
--- NOTE | 2021-08-29 12:44 | Procedure/Intervention Note ---
Procedure Note Preoperative Date of Service: Aug 29, 2021 Indication Left Distal Radius Fracture Procedure-General The sugartong splint was removed. The left forearm was padded with stockinette and cast padding. A short arm fiberglass cast was applied, careful to keep the thumb and fingers free. LOU SANFORD MD Aug 29, 2021 12:44
--- NOTE | 2021-08-29 13:56 | Progress Note ---
[facility] 08/29/21 1356: Progress Note Subjective: CC/HPI: Jane Rudolph is a 70 yo female, previously in rehab, with a history of A Fib with RVR and pneumonia, who presented for evaluation and management of debility and weakness following L hip fracture s/p IM NAIL. Jane was admitted to ICU 5 on 08/25/21; over the course of her admission, Dr Crawley was contacted for a cardiology consultation; He attempted cardioversion on 08/27/21, which was unsuccessful. Dr. Crawley recommended to remain on amiodarone for 24 Hrs, and reassess for repeat cardioversion. Overnight on 08/28/2021, Jane spontaneously went back into sinus rhythm, and was cleared by Dr. Crawley to return to rehab on floor 2. Jane remains on Cefepime for lobar pneumonia. Today, Jane is more conversational, alert, and was sitting in a chair. She states that she was able to have a bowel movement last night on the commode, but still does not have much of an appetite. She also reports that she was able to do light physical therapy last night (08/28/21) and this morning (08/29/21), which was primarily focused on bed motility, and sit to stand. Jane has expressed refusal of physical therapy multiple times during her stay, but reports that she will complete therapy on second floor rehabilitation. Jane's continues to accompany her during the stay. PMH L Hip fracture s/p IM NAIL A-Fib with RVR Lobar Pneumonia Hypertension Osteoporosis Hypothyroidsim PS Breast Eye Surgery Orthopedic Thyroidectomy MEDS Item Value Date Time Senna 1 ea 08/29/21 2100 (Senokot S BID/PO Tablet) Polyethylene 17 gm 08/29/21 2100 Glycol BID/PO (Miralax 17 Gm Packet) Docusate Sodium 100 mg 08/29/21 2100 (Colace Capsule) BID/PO Acetaminophen 650 mg 08/29/21 1230 (Tylenol Tablet) Q4H PRN/PO Ondansetron HCl 4 mg 08/29/21 1145 (Zofran Oral Q6H PRN/PO Dissolve Tablet) Melatonin 3 mg 08/29/21 1145 (Melatonin HS PRN/PO Tablet) Guaifenesin/ 10 ml 08/29/21 1145 Codeine Phosphate Q4H PRN/PO (Robitussin Ac (Codeine) Syrup) Loperamide HCl 2 mg 08/29/21 1145 (Imodium Tablet) PRN PRN/PO Sodium 1 ea 08/29/21 1145 Biphosphate/ BID PRN/IA Sodium Phosphate (Fleet Enema Adult) Lactulose 10 gm 08/29/21 1145 (Enulose Oral BID PRN/PO Solution) Bisacodyl 10 mg 08/29/21 1145 (Dulcolax DAILY PRN/IA Suppository) Docusate Sodium 100 mg 08/29/21 1145 (Colace Capsule) BID PRN/PO Diphenhydramine 25 mg 08/29/21 1145 HCl Q6H PRN/PO (Benadryl Tablet) Calcium Carbonate 500 mg 08/29/21 1145 (Antacid TID PRN/PO Chewable Tablet) Alprazolam 0.25 mg 08/29/21 1145 (Xanax Tablet) Q8H PRN/PO ALLERGIES: NKDA SH: Jane is retired and currently . ROS: Constitutional: Denies fever, denies chills. CV: Denies chest pain Resp: Denies SOB, denies cough GI: Has diarrhea MSK: Has pain in L hip, has general weakness Objective: Vitals 08/29/21, 11:40 AM Pulse: 76 BPM RR: 18 BP: 120/55 Pulse Ox: 95% O2: Nasal canula, 2 L/min O2 Laboratory Tests 08/29/21 04:45: White Blood Count 13.8H, Red Blood Count 2.79L, Hemoglobin 8.2L, Hematocrit 25L, Mean Corpuscular Volume 91, Mean Corpuscular Hemoglobin 29, Mean Corpuscular Hemoglobin Concent 32, Red Cell Distribution Width 14.2, Platelet Count 248, Mean Platelet Volume 9.4, Immature Granulocyte % (Auto) 4, Neutrophils (%) (Auto) 69, Lymphocytes (%) (Auto) 16, Monocytes (%) (Auto) 10, Eosinophils (%) (Auto) 1, Basophils (%) (Auto) 0, Neutrophils # (Auto) 9.6H, Lymphocytes # (Auto) 2.2, Monocytes # (Auto) 1.4H, Eosinophils # (Auto) 0.1, Basophils # (Auto) 0.0, Immature Granulocyte # (Auto) 0.5H, Sodium Level 134L, Potassium Level 4.6, Chloride Level 102, Carbon Dioxide Level 23, Anion Gap 9, Blood Urea Nitrogen 17, Creatinine 0.70, Estimat Glomerular Filtration Rate 82, BUN/Creatinine Ratio 24, Glucose Level 119H, Calcium Level 8.5, Corrected Calcium 9.6, Phosphorus Level 2.9, Magnesium Level 2.3, Total Bilirubin 0.5, Aspartate Amino Transf (AST/SGOT) 50H, Alanine Aminotransferase (ALT/SGPT) 66H, Alkaline Phosphatase 122, Total Protein 5.1L, Albumin 2.6L PE General: Alert and conversational CV: RRR, no MRG Resp: Lung sounds are clear Assessment and Plan: L Hip fracture s/p IM NAIL Intramedullary nailing of left intertrochanteric femur fracture on 08/22/2021 Splint L wrist on 08/22/21 PT/OT evaluation and assessment Pain control A-Fib with RVR Monitored closely by Dr. Misbah Carl score 3 Echo on 08-26-21: LVEF 55-60%. There were no regional wall motion abnormalities identified. Pulmonary systolic pressure is in the range of 30 mm Hg to 35 mm Hg JOANIE on 08-27-21: LVEF 60%, no intracardiac thrombus, redundant interatrial septum and PFO with small L to R shunt, mild MR and TR Electrical cardioversion on 08-27-21 successfully converted A Fib to NSR but she went back into A Fib several minutes later In NSR on 08/29/21 after treatment with amiodarone Lobar Pneumonia Already on Cefepime Continue to monitor closely Hypertension HLD Continue simvastatin Has been relatively HYPOtensive Osteoporosis Continue calcium supplementation Strength and endurance training per PT/OT Hypothyroidsim Continue to manage with synthroid CARMELITA VAZ DO 08/29/212037: Supervisory-Addendum Brief Verification & Attestation Participated in pt care: history, MDM, physical Personally performed: exam, history, MDM, supervision of care Care discussed with: Medical Student Procedures: n/a Results interpretation: Verified all documentation Verification and Attestation of Medical Student E/M Service A medical student performed and documented this service in my presence. I reviewed and verified all information documented by the medical student and made modifications to such information, when appropriate. I personally performed the physical exam and medical decision making. Carmelita Vaz, Aug 29, 2021,20:38 NORMA KAT Aug 29, 2021 13:56 CARMELITA VAZ DO Aug 29, 2021 20:38
[2021-08-29 14:00] VITALS: BP 124/60
--- NOTE | 2021-08-29 14:48 | Occupational Therapy Eval ---
OT Evaluation-General/PLF Medical Diagnosis Admission Date Aug 29, 2021 at 12:09 Medical Diagnosis: L hip fx, s/p IM nail, A-fib with RVR Onset Date: Aug 24, 2021 Therapy Diagnosis Therapy Diagnosis: Impaired adls, strength, endurance Height/Weight Height (Feet): 5 Height (Inches): 9.00 Weight (Pounds): 175 Weight (Ounces): 0.0 Precautions Precautions/Isolations: Fall Prevention, Standard Precautions Weight Bear Status Weight Bearing Restriction: Weight Bearing/Tolerated Location Restriction: L LE Referral Physician: Marisabel Referral Reason: Evaluation/Treatment Medical History Pertinent Medical History: HTN, Hypothroidism Current History Pt initially admitted to rehab following L hip fracture s/p IM NAIL and wrist fracture with repair. She was transferred to ICU on 08/25/21 for A-fib. Cardioversion performed on 08/27/21, which was unsuccessful. On 08/28/2021, Jane spontaneously went back into sinus rhythm, and was cleared to return to rehab. Pt is WBAT L hip and NWB L wrist. Pt reported that she was previously independent with basic self cares and IADLs. She still drives and is retired from [employer]. Social History Home: Single Level Current Living Status: Spouse Entry Into Home: Stairs With Railing ADL-Prior Level of Function SCALE: Activities may be completed with or without assistive devices. 8-Poqpmxmmrw-epzaxip completes the activity by him/herself with no assistance from a helper. 5-Set-up or Clean-up Assistance-helper sets up or cleans up; patient completes activity. [place] assists only prior to or following the activity. 4-Supervision or Touching Assistance-helper provides verbal cues and/or touching/steadying and/or contact guard assistance as patient completes activity. Assistance may be provided throughout the activity or intermittently. 3-Partial/Moderate Assistance-helper does LESS THAN HALF the effort. [place] lifts, holds or supports trunk or limbs, but provides less than half the effort. 2-Substantial/Maximal Assistance-helper does MORE THAN HALF the effort. [place] lifts or holds trunk or limbs and provides more than half the effort. 6-Sobdpxfif-ggxvgd does ALL the effort. Patient does none of the effort to complete the activity. Or, the assistance of 2 or more helpers is required for the patient to complete the activity. If activity was not attempted, code reason: 7-Patient Refused. 9-Not Applicable-not attempted and the patient did not perform the activity before the current illness, exacerbation or injury. 10-Not Attempted due to Environmental Limitations-(lack of equipment, weather restraints, etc.). 88-Not Attempted due to Medical Conditions or Safety Concerns. Self Care: Independent Functional Cognition: Independent DME/Equipment: Bath Bench, Grab Bars, Tall Toilet, Tub/Shower Drive Self: Yes OT Current Status Subjective Pt reports pain as 7/10. Reluctantly agreeable to participate. Appearance Pt returned to supine in bed, all needs within reach, spouse in room. Mental Status/Objective Patient Orientation: Person, Situation Pt is very [place], baseline cochlear implant and hearing aid. Repetition of commands needed often. Attachments: IV, Telemetry Current Glasses/Contacts: Yes Hearing Aids: Yes Dentures/Partials: No Hand Dominance: Right Upper Extremity ROM WNL except L wrist is in cast. Limited finger flexion L hand secondary to cast Upper Extremity Strength Not formally tested, appears at least 3+/5 ADL-Treatment Eating (QC): 5 Oral Hygiene (QC): 1 Shower/Bathe Self (QC): 1 Upper Body Dressing (QC): 2 Lower Body Dressing (QC): 1 On/Off Footwear (QC): 1 Toileting Hygiene (QC): 1 Pt reluctant to participate, but agreeable with encouragement. MAX a x2 to stand with use of bedrail for RUE support. Max a x1 to maintain standing balance. Extra time and cues to extend trunk/hips and to adhere to NWB on LUE. Pt unable to take any steps at this time. Shower W/C positioned behind patient. Shower completed. Unable to assess at PLOF (standing) due to poor standing tolerance and requiring assist x2 for all standing functional tasks. Thus, activity completed in sitting. Pt able to wash upper body, thighs, and front emma area with VC's only. Dep to wash below knees and buttocks. Pt will benefit from use of AE for LB dressing/bathing tasks. Dep to don Saul socks and thread LE's into brief. Assist x2 to manage over hips in standing. With all sit>stands, pt reports urge to have BM. Bowel Incontinence on last sit<>stand. Dep for emma care. Poor standing tolerance with difficulty shifting weight onto LLE. Pt has tendency to internally rotate BLE's. cues/education on proper positioning. Education OT Patient Education: Correct positioning, Disease process, Energy c onservation, Modified ADL techniques, Progress toward Goal/Update tx plan, Purpose of tx/functional activities, Reviewed precautions, Rehab process, Safety issues, Transfer techniques, W/C management Teaching Recipient: Patient, Family Teaching Methods: Demonstration, Discussion Response to Teaching: Verbalize Understanding, Reinforcement Needed OT Short Term Goals Short Term Goals Time Frame: Sep 12, 2021 Eatin Oral hygiene: 3 Toileting hygiene: 2 Shower/bathe self: 3 Upper body dressin Lower body dressin Putting on/taking off footwear: 3 OT Sonography Technologist Goals Halfway Goals Time Frame: Sep 26, 2021 Eating (QC): 6 Oral Hygiene (QC): 5 Toileting Hygiene (QC): 4 Shower/Bathe Self (QC): 4 Upper Body Dressing (QC): 4 Lower Body Dressing (QC): 4 On/Off Footwear (QC): 4 1=Demonstrate adherence to instructed precautions during ADL tasks. 2=Patient will verbalize/demonstrate understanding of assistive devices/modifications for ADL. 3=Patient will improve strength/tolerance for activity to enable patient to perform ADL's. OT Education/Plan Problem List/Assessment Assessment: Decreased Activ Tolerance, Decreased Safety Aware, Decreased UE Strength, Dependent Transfers, Impaired Bed Mobility, Impaired Coordination, Impaired Funct Balance, Impaired I ADL's, Impaired Self-Care Skills, Restricted Funct UE ROM Discharge Recommendations Plan/Recommendations: Continue POC Therapy Discharge Recommendati: Post Acute OT Equpiment Recommendations-D/C: Bath Chair, Revenue Collector, Sock Aide, Toilet Riser Treatment Plan/Plan of Care Treatment,Training & Education: Yes Patient would benefit from OT for education, treatment and training to promote independence in ADL's, mobility, safety and/or upper extremity function for ADL's. Plan of Care: ADL Retraining, Functional Mobility, Group Exercise/Act as Ind, UE Funct Exercise/Act, W/C Management Training Treatment Duration: Sep 26, 2021 Frequency: At least 5 of 7 days/Wk (IRF) Estimated Hrs Per Day: 1.5 hours per day Agreement: Yes Rehab Potential: Guarded Time/GCodes Start Time: 12:45 Stop Time: 14:25 Total Time Billed (hr/min): 90 Billed Treatment Time 1 visit EVH (10 min) ADL x4 (60 min) FA (20 min) OT eval ([id number]) PT eval ([id number]) Co-treat ([id number]) Nita Buchanan OT Aug 29, 2021 14:48
[2021-08-29] MEDS ORDERED: morphine INJ 4 MG/ML 1 ML (VIAL/SYRINGE) IVP PRN (15:15)
[2021-08-29] MEDS ORDERED: ONDANSETRON 4 MG (ZOFRAN) ORAL DISSOLVE TAB PO PRN (15:15)
[2021-08-29] MEDS ORDERED: CATHETER FLUSH 10 ML SYR IV PRN (15:15)
[2021-08-29] MEDS ORDERED: hydrALAZINE (APESOLINE) 20 MG/ML VIAL IV PRN (15:15)
[2021-08-29] MEDS ORDERED: MELATONIN 3 MG TABLET PO PRN (15:15)
[2021-08-29] MEDS ORDERED: ONDANSETRON 4 MG/2 ML (SDV) Z0FRAN IVP PRN (15:15)
[2021-08-29] MEDS ORDERED: morphine INJ 10 MG/ML 1ML (SYR OR VIAL) IV PRN (15:30)
[2021-08-29] MEDS: HYDROcodone/APAP 5 MG/325 MG (LORTAB) TAB PO PRN (15:31)
[2021-08-29] MEDS ORDERED: FLU QUAD HIGH DOSE 240 MCG/0.7 ML 2021-22 (FLUZONE) IM ONE (15:45)
--- NOTE | 2021-08-29 15:59 | Physical Therapy Evaluation ---
PT Evaluation-General Medical Diagnosis Admission Date Aug 29, 2021 at 12:09 Medical Diagnosis: L hip fx, s/p IM nail, A-fib with RVR Onset Date: Aug 24, 2021 Therapy Diagnosis Therapy Diagnosis: impaired mobility, strength, endurance Height/Weight Height (Feet): 5 Height (Inches): 9.00 Weight (Pounds): 175 Weight (Ounces): 0.0 Precautions Precautions/Isolations: Fall Prevention, Standard Precautions Weight Bear Status Left Lower Extremity: Left Weight Bearing/Tolerated NWB LUE but can bear weight on elbow Referral Physician: Carmelita Petit DO Reason for Referral: Evaluation/Treatment Medical History Pertinent Medical History: HTN, Hypothroidism Reviewed History: Yes Social History Home: Single Level Current Living Status: Spouse Entry Into Home: Stairs With Railing Prior Prior Level of Function SCALE: Activities may be completed with or without assistive devices. 7-Iejctycsfo-tujesdp completes the activity by him/herself with no assistance from a helper. 5-Set-up or Clean-up Assistance-helper sets up or cleans up; patient completes activity. [place] assists only prior to or following the activity. 4-Supervision or Touching Assistance-helper provides verbal cues and/or touching/steadying and/or contact guard assistance as patient completes ac tivity. Assistance may be provided throughout the activity or intermittently. 3-Partial/Moderate Assistance-helper does LESS THAN HALF the effort. [place] lifts, holds or supports trunk or limbs, but provides less than half the effort. 2-Substantial/Maximal Assistance-helper does MORE THAN HALF the effort. [place] lifts or holds trunk or limbs and provides more than half the effort. 9-Hjdhmgkqp-nttjtc does ALL the effort. Patient does none of the effort to complete the activity. Or, the assistance of 2 or more helpers is required for the patient to complete the activity. If activity was not attempted, code reason: 7-Patient Refused. 9-Not Applicable-not attempted and the patient did not perform the activity before the current illness, exacerbation or injury. 10-Not Attempted due to Environmental Limitations-(lack of equipment, weather restraints, etc.). 88-Not Attempted due to Medical Conditions or Safety Concerns. Bed Mobility: 6 Transfers (B,C,W/C): 6 Gait: 6 Stairs: 6 Indoor Mobility (Ambulation): Independent Stairs: Independent PT Evaluation-Current Subjective Patient in recliner pre tx, agrees to PT, has 5/10 pain in left hip. Will be co-treating with OT due to poor patient mobility, strength, endurance, inability to ambulate, coordinate UE and LE with activity, severe pain with activity, safety and reduce risk of falls. Pt/Family Goals to be independent at home Objective Patient Orientation: Person, Place, Situation Sensory Vision: Wears Glasses Hearing: Impaired Hand Dominance: Right Sensation Right Lower Extremit: Intact Sensation Left Lower Extremity: Intact Transfers Roll Left & Right (QC): 2 Sit to Lying (QC): 2 Lying to Sitting/Side of Bed(Q: 2 Sit to Stand (QC): 2 Chair/Yfw-no-Kuail Xfer(QC): 2 Toilet Transfer (QC): 2 Car Transfer (QC): 88 Patient performs bed mobility and supine <-> sit with max assist, sit <-> stand max assist, stand pivot transfers max assist. Patient cannot perform a car transfer at this time due to pain. Cues for hand placement and positioning. Gait Does the Patient Walk?: No and Walking Goal IS indicated Mode of Locomotion: Wheelchair Anticipated Mode of Locomotion: Both Walk 10 feet (QC): 88 Walk 50 ft with 2 Turns(QC): 88 Walk 150 ft (QC): 88 Walking 10ft/uneven surface-QC: 88 Wheelchair Training Does the Pt Use a Wheelchair?: Yes Distance: 100' Wheel 50 ft with 2 turns (QC): 4 Wheel 150 ft (QC): 88 Type of Wheelchair: Manual SBA Stairs 1 Step (curb) (QC): 88 4 Steps (QC): 88 12 Steps (QC): 88 Balance Sitting Static: Fair Sitting Dynamic: Fair Standing Static: Poor Standing Dynamic: Poor Picking up an Object (QC): 88 Treatment PT performed bed mobility and transfer training, standing, standing and positioning during bathing and dressing, OT performed bathing and dressing, UE positioning and safety during activity. Assessment/Needs Patient in bed post tx with nurse call, phone, tray, all needs met. Patient has impaired mobility, strength, endurance. Patient has severe pain with activity, needs extended rest breaks to recover. She can stand with support using right arm and right elbow but is not able to take any steps at this time. Rehab Potential: Guarded PT Short Term Goals Short Term Goals Time Frame: Sep 05, 2021 Roll Left & Right: 3 Sit to lyin Lying to sitting on side of be: 3 Sit to stand: 3 Chair/xbk-ow-jlwbg transfer: 3 Walk 10 feet: 3 PT Customs And Immigration Officer Goals Customs And Immigration Officer Goals PT Customs And Immigration Officer Goals Time Frame: Sep 19, 2021 Roll Left & Right (QC): 3 (Moisés) Sit to Lying (QC): 3 (Moisés) Lying-Sitting on Side/Bed(QC): 3 (Moisés) Sit to Stand (QC): 3 (Moisés) Chair/Mal-fh-Rlnec Xfer(QC): 3 (Moisés) Toilet Transfer (QC): 3 (Moisés) Car Transfer (QC): 3 (Moisés) Does the Patient Walk: Yes Walk 10 feet (QC): 3 (Moisés) Walk 50ft with 2 Turns (QC): 3 (Moisés) Walk 150 ft (QC): 88 Walking 10ft on Uneven Surface: 3 (Moisés) 1 Step (curb) (QC): 3 (Moisés) 4 Steps (QC): 88 12 Steps (QC): 88 Picking up an Object (QC): 88 Wheel 50 feet with 2 turns (QC: 5 Wheel 150 feet: 5 PT Plan Problem List Problem List: Activity Tolerance, Functional Strength, Safety, Balance, Gait, Transfer, Bed Mobility, ROM Treatment/Plan Treatment Plan: Continue Plan of Care Treatment Plan: Bed Mobility, Education, Functional Activity Sheyla, Functional Strength, Group Therapy, Gait, Safety, Therapeutic Exercise, Transfers Treatment Duration: Sep 19, 2021 Frequency: At least 5 of 7 days/Wk (IRF) Estimated Hrs Per Day: 1.5 hours per day Patient and/or Family Agrees t: Yes Safety Risks/Education Patient Education: Transfer Techniques, Reviewed Precautions, Correct Positioning, W/C Management, Safety Issues Teaching Recipient: Patient Teaching Methods: Demonstration, Discussion Response to Teaching: Reinforcement Needed Discharge Recommendations Plan Patient will perform bed mobility and transfer training, balance and endurance training, functional strengthening, stair training, gait training, and education, to improve functional mobility and independence at home. Therapy Discharge Recommendati: Scheduled Assistance, Home & Family, Post Acute PT Time/GCodes Time In: 1245 Time Out: 1425 Total Billed Treatment Time: 90 Total Billed Treatment 1 visit EVM 10' FA 80' PT eval from [id number], OT eval from [id number], co-treat from [id number] LOLLY BOND PT Aug 29, 2021 15:59
[2021-08-29] MEDS: CEFEPIME INJECTION 1,000 MG in WATER (STERILE) FOR INJECTION 10 ML IV SCH (18:08)
[2021-08-29] MEDS ORDERED: RT-ALBUTEROL SULF 2.5 MG/3 ML PRE-MIX VIAL ONE (18:37)
[2021-08-29] MEDS: RT-ALBUTEROL SULF 2.5 MG/3 ML PRE-MIX VIAL INH SCH (19:02)
[2021-08-29] MEDS: polyethylene glycoL POWDER 17 GM (MIRALAX) PACK PO SCH (19:59)
[2021-08-29] MEDS: DOCUSATE SODIUM 100 MG (COLACE) CAP PO SCH (19:59)
[2021-08-29] MEDS: SENNA W/DOCUSATE (SENOKOT S) TABLET PO SCH (19:59)
[2021-08-29 20:00] VITALS: BP 135/62
--- NOTE | 2021-08-29 20:23 | PM&R Post Admission Assessment ---
PM&R HP Date of Visit: Aug 29, 2021 Time of Visit: 13:00 History of Present Illness Chief complaint: Critical illness myopathy History of present illness: This is a 70-year-old white female whom is familiar to me from ICU hospital course due to atrial fibrillation new onset with rapid ventricular response status post unsuccessful cardioversion but spontaneously cardioverted after amiodarone drip maintained for 48 hours now presents to the inpatient rehab unit in need of resolution of debility from hip fracture and wrist fracture. Currently she reports she is worn out but she is willing to participate in therapy in order to return back to independent living. CC/HPI: Jane Case is a 70 yo female, previously in rehab, with a history of A Fib with RVR and pneumonia, who presented for evaluation and management of debility and weakness following L hip fracture s/p IM NAIL. Jane was admitted to ICU 5 on 08/25/21; over the course of her admission, Dr Crawley was contacted for a cardiology consultation; He attempted cardioversion on 08/27/21, which was unsuccessful. Dr. Crawley recommended to remain on amiodarone for 24 Hrs, and reassess for repeat cardioversion. Overnight on 08/28/2021, Jane spontaneously went back into sinus rhythm, and was cleared by Dr. Crawley to return to rehab on floor 2. Jane remains on Cefepime for lobar pneumonia. Today, Jane is more conversational, alert, and was sitting in a chair. She states that she was able to have a bowel movement last night on the commode, but still does not have much of an appetite. She also reports that she was able to do light physical therapy last night (08/28/21) and this morning (08/29/21), which was primarily focused on bed motility, and sit to stand. Jane has expressed refusal of physical therapy multiple times during her stay, but report s that she will complete therapy on second floor rehabilitation. Jane's continues to accompany her during the stay. PMH L Hip fracture s/p IM NAIL A-Fib with RVR Lobar Pneumonia Hypertension Osteoporosis Hypothyroidsim [facility] Breast Eye Surgery Orthopedic Thyroidectomy MEDS Item Value Date Time Senna 1 ea 08/29/21 2100 (Senokot S BID/PO Tablet) Polyethylene 17 gm 08/29/21 2100 Glycol BID/PO (Miralax 17 Gm Packet) Docusate Sodium 100 mg 08/29/21 2100 (Colace Capsule) BID/PO Acetaminophen 650 mg 08/29/21 1230 (Tylenol Tablet) Q4H PRN/PO Ondansetron HCl 4 mg 08/29/21 1145 (Zofran Oral Q6H PRN/PO Dissolve Tablet) Melatonin 3 mg 08/29/21 1145 (Melatonin HS PRN/PO Tablet) Guaifenesin/ 10 ml 08/29/21 1145 Codeine Phosphate Q4H PRN/PO (Robitussin Ac (Codeine) Syrup) Loperamide HCl 2 mg 08/29/21 1145 (Imodium Tablet) PRN PRN/PO Sodium 1 ea 08/29/21 1145 Biphosphate/ BID PRN/HI Sodium Phosphate (Fleet Enema Adult) Lactulose 10 gm 08/29/21 1145 (Enulose Oral BID PRN/PO Solution) Bisacodyl 10 mg 08/29/21 1145 (Dulcolax DAILY PRN/HI Suppository) Docusate Sodium 100 mg 08/29/21 1145 (Colace Capsule) BID PRN/PO Diphenhydramine 25 mg 08/29/21 1145 HCl Q6H PRN/PO (Benadryl Tablet) Calcium Carbonate 500 mg 08/29/21 1145 (Antacid TID PRN/PO Chewable Tablet) Alprazolam 0.25 mg 08/29/21 1145 (Xanax Tablet) Q8H PRN/PO ALLERGIES: NKDA SH: Jane is retired and currently . ROS: Constitutional: Denies fever, denies chills. CV: Denies chest pain Resp: Denies SOB, denies cough GI: Has diarrhea MSK: Has pain in L hip, has general weakness Objective: Vitals 08/29/21, 11:40 AM Pulse: 76 BPM RR: 18 BP: 120/55 Pulse Ox: 95% O2: Nasal canula, 2 L/min O2 Laboratory Tests 08/29/21 04:45: White Blood Count 13.8H, Red Blood Count 2.79L, Hemoglobin 8.2L, Hematocrit 25L, Mean Corpuscular Volume 91, Mean Corpuscular Hemoglobin 29, Mean Corpuscular Hemoglobin Concent 32, Red Cell Distribution Width 14.2, Platelet Count 248, Mean Platelet Volume 9.4, Immature Granulocyte % (Auto) 4, Neutrophils (%) (Auto) 69, Lymphocytes (%) (Auto) 16, Monocytes (%) (Auto) 10, Eosinophils (%) (Auto) 1, Basophils (%) (Auto) 0, Neutrophils # (Auto) 9.6H, Lymphocytes # (Auto) 2.2, Monocytes # (Auto) 1.4H, Eosinophils # (Auto) 0.1, Basophils # (Auto) 0.0, Immature Granulocyte # (Auto) 0.5H, Sodium Level 134L, Potassium Level 4.6, Chloride Level 102, Carbon Dioxide Level 23, Anion Gap 9, Blood Urea Nitrogen 17, Creatinine 0.70, Estimat Glomerular Filtration Rate 82, BUN/Creatinine Ratio 24, Glucose Level 119H, Calcium Level 8.5, Corrected Calcium 9.6, Phosphorus Level 2.9, Magnesium Level 2.3, Total Bilirubin 0.5, Aspartate Amino Transf (AST/SGOT) 50H, Alanine Aminotransferase (ALT/SGPT) 66H, Alkaline Phosphatase 122, Total Protein 5.1L, Albumin 2.6L PE General: Alert and conversational CV: RRR, no MRG Resp: Lung sounds are clear Assessment and Plan: L Hip fracture s/p IM NAIL Intramedullary nailing of left intertrochanteric femur fracture on 08/22/2021 Splint L wrist on 08/22/21 PT/OT evaluation and assessment Pain control A-Fib with RVR Monitored closely by Dr. Misbah HEATONVASc score 3 Echo on 08-26-21: LVEF 55-60%. There were no regional wall motion abnormalities identified. Pulmonary systolic pressure is in the range of 30 mm Hg to 35 mm Hg JOANIE on 08-27-21: LVEF 60%, no intracardiac thrombus, redundant interatrial septum and PFO with small L to R shunt, mild MR and TR Electrical cardioversion on 08-27-21 successfully converted A Fib to NSR but she went back into A Fib several minutes later In NSR on 08/29/21 after treatment with amiodarone Lobar Pneumonia Already on Cefepime Continue to monitor closely Hypertension HLD Continue simvastatin Has been relatively HYPOtensive Osteoporosis Continue calcium supplementation Strength and endurance training per PT/OT Hypothyroidsim Continue to manage with synthroid Past Dywtehs-Oagvtd-Bdmgtz Hx Past Med/Social Hx: Reviewed Nursing Past Med/Soc Hx, Reviewed and Corrections made Patient Social History Marrital Status: Employed/Student: retired Alcohol Use: Denies Use Smoking Status: Never a Smoker Recent Hopitalizations: No Immunizations Up To Date Pediatric: No Date of Pneumonia Vaccine: Jul 17, 2018 Date of Influenza Vaccine: Jul 17, 2018 Seasonal Allergies Seasonal Allergies: No Past Medical History Surgeries: Breast, Eye Surgery, Orthopedic, Thyroidectomy Respiratory: Pneumonia (08/30/2021) Currently Using CPAP: No Currently Using BIPAP: No Cardiac: Atrial Fibrillation (08/30/2021), Hypertension Musculoskeletal: Osteoporosis Endocrine: Hypothyroidsim Cancer: Breast Did You Recieve Any Treatments: Yes What Type of Treatment Did You: Radiation, Surgical Intervention History of Blood Disorders: No Family History No Pertinent Family Hx Prior Level of Function Bed Mobility: 6 Transfers: 6 Gait: 6 Stairs: 6 Indoor Mobility (Ambulation): Independent Stairs: Independent Self Care: Independent Functional Cognition: Independent Drive Self: Yes Current Level of Fuctioning Roll Left to Right: 2 Sit to Lyin Lying to Sitting/Side of Bed: 2 Sit to Stand: 2 Chair/Ziq-nb-Ixzje Xfer: 2 Car Transfer: 88 Does the Patient Walk: No and Walking Goal IS indicated Mode of Locomotion: Wheelchair Anticipated Mode of Locomotion: Both Walk 10 feet: 88 Walk 50 ft with 2 Turns: 88 Walk 150 ft: 88 Walking 10ft on uneven surface: 88 Does the Pt Use a Wheelchair: Yes Wheelchair Distance: 100' Wheel 50 ft with 2 turns: 4 Wheel 150 ft: 88 Type of Wheelchair: Manual 1 Step (curb): 88 4 Steps: 88 12 Steps: 88 Picking up an Object: 88 Eatin Oral Hygiene: 1 Shower/Bathe Self: 1 Upper Body Dressin Lower Body Dressin On/Off Footwear: 1 Toileting Hygiene: 1 PM&R Allergy/Meds/Data Review Allergies Coded Allergies: No Known Drug Allergies (Unverified , 01/17/19) Home Medications Scheduled Albuterol Sulfate (Albuterol Sulfate), 2.5 MG INH RTBID Amiodarone HCl (Amiodarone HCl), 400 MG PO BID Apixaban (Eliquis), 5 MG PO BID Calcium Carb/D3/Magnesium/Zinc (Josue Mag Zinc + D3 Tablet), 1 TAB PO DAILY, (Reported) Cefepime HCl/Dextrose, Iso-Osm (Cefepime 1 gm Injection), 1 GM IV Q6H Cholecalciferol (Vitamin D3) (Vitamin D3), 125 MCG PO DAILY, (Reported) Cyanocobalamin (Vitamin B-12) (Vitamin B-12), 1,000 MCG PO DAILY@0700 Diltiazem HCl (Diltiazem 24Hr ER), 240 MG PO DAILY Furosemide (Furosemide), 20 MG PO DAILY, (Reported) Iron Sucrose Complex (Venofer), 200 MG IV Q48H@09 Latanoprost (Xalatan), 1 DROP OU HS, (Reported) Pantoprazole Sodium (Pantoprazole Sodium), 40 MG PO DAILY, (Reported) Potassium Chloride (Potassium Chloride), 10 MEQ PO DAILY, (Reported) Simvastatin (Simvastatin), 20 MG PO HS, (Reported) Timolol Maleate (Timolol Maleate 0.5%), 1 DROP OU BID, (Reported) Scheduled PRN Albuterol Sulfate (Albuterol Sulfate), 2.5 MG INH Q2HR PRN for SHORTNESS OF BREATH Discontinued Medications Alendronate Sodium (Alendronate Sodium), 70 MG PO WEEK, (Reported) Amlodipine Besylate (Amlodipine Besylate), 5 MG PO DAILY, (Reported) Atenolol (Atenolol), 50 MG PO DAILY, (Reported) Levothyroxine Sodium (Levothyroxine Sodium), 25 MCG PO DAILY, (Reported) Current Medications Current Medications Reviewed Review of Systems Constitutional: see HPI, dizziness, malaise, weakness EENTM: no symptoms reported Respiratory: cough, dyspnea on exertion, short of breath Cardiovascular: palpitations Gastrointestinal: no symptoms reported Genitourinary: no symptoms reported Musculoskeletal: back pain, joint pain Skin: no symptoms reported Psychiatric/Neurological: Anxiety, Depressed All Other Systems Reviewed Negative Unless Noted: Yes Physical Exam Physical Exam Vital Signs Vital Signs - First Documented 08/29/21 14:00 Temp 36.6 Pulse 80 Resp 18 B/P (MAP) 124/60 (81) Pulse Ox 95 O2 Delivery Room Air Capillary Refill : Height, Weight, BMI Height: 5'9.00" Weight: 175lbs. 0.0oz. [id number]; 31.00 BMI Method:Stated General Appearance: No Apparent Distress, WD/WN, Anxious, Chronically ill, Other (Fatigued and pale) Eyes: Bilateral Eye Normal Inspection, Bilateral Eye PERRL HEENT: PERRL/EOMI, Normal ENT Inspection, Pharynx Normal Neck: Full Range of Motion, Normal Inspection, Non Tender, Supple, Carotid Bruit Respiratory: Chest Non Tender, Lungs Clear, Normal Breath Sounds, No Accessory Muscle Use, No Respiratory Distress, Decreased Breath Sounds Cardiovascular: Regular Rate, Rhythm, No Edema, No Gallop, No JVD, No Murmur, Normal Peripheral Pulses Gastrointestinal: Normal Bowel Sounds, No Organomegaly, No Pulsatile Mass, Non Tender, Soft Back: Normal Inspection, No CVA Tenderness, No Vertebral Tenderness Extremity: Normal Capillary Refill, Normal Inspection, Normal Range of Motion, Non Tender, No Calf Tenderness, No Pedal Edema Neurologic/Psychiatric: Alert, Oriented x3, No Motor/Sensory Deficits, aws consultant II- XII Norm as Tested, Depressed Affect, Motor Weakness (Generalized 3/5 but left leg 1/5) Skin: Normal Color, Warm/Dry Lymphatic: No Adenopathy PM&R Medical Assessment & Plan REHAB/MEDICAL ASSESSMENT AND PLAN: REHAB IMPAIRMENT GROUP: [ ] ETIOLOGIC DIAGNOSIS: [ (condition that led to rehab admission) ] The comorbidities that impact the patients function and/or functional outcome by: [ ] REHAB PLAN: The patient is being admitted to our comprehensive inpatient rehabilitation facility and can tolerate the intensity of service consisting of at least: 180 minutes of therapy a day, 5 out of 7 days a week Rehab treatment will consist of: [ (write brief focus that includes physician, rehab nursing and therapies/modalitiesIPOC will have more specifics) ] The patient/family has a good understanding of our discharge process and will benefit from an interdisciplinary inpatient rehabilitation program. The patient has potential to make improvement and is in need of at least two of the following multidisciplinary therapies including but not limited to physical, occupational, speech, and prosthetics and orthotics. Additionally the patient will need services from respiratory, nutritional services, wound care, psychology, etc. (Customize this to each patient). Given the patients complex condition and risk of further medical complications, rehabilitation services c annot be safely or effectively provided at a lower level of care such as a fpc facility. BARRIERS TO DISCHARGE: [ ] ESTIMATED LOS: [ ] DISPOSITION: [ ] RELEVANT CHANGES SINCE PREADMISSION SCREENING: I have compared the patients medical and functional status at the time of the preadmission screening and there are: [no changes] [changes as follows: (if there is a discrepancy between the IGC/Etiologic stated on the PAS, address/clarify this as well) ] PROGNOSIS: [ ] REHABILITATION GOALS: 1. [ (specific to the patient) ] All the above goals were reviewed with the patient and he/she is in agreement. By signing this document, I acknowledge that I have personally performed a full physical examination on this patient within 24 hours of admission to this inpatient rehabilitation facility and have determined the patient to be able to tolerate the above course of treatment at an intensive level for a reasonable period of time. I will be completing a detailed individualized Plan of Care for this patient by day #4 of the patients stay based upon the Preadmission Screen, the Post-Admission Evaluation, and the therapy evaluations. Admission Dx/Comorbidities: (1) Hip fracture Status: Acute ICD Codes: S72.009A - Fracture of unspecified part of neck of unspecified femur, initial encounter for closed fracture (2) Pneumonia ICD Codes: J18.9 - Pneumonia, unspecified organism (3) Anemia due to acute blood loss ICD Codes: D62 - Acute posthemorrhagic anemia (4) Iron deficiency ICD Codes: E61.1 - Iron deficiency (5) Low TSH level ICD Codes: R79.89 - Other specified abnormal findings of blood chemistry (6) Afib ICD Codes: I48.91 - Unspecified atrial fibrillation (7) HLD (hyperlipidemia) ICD Codes: E78.5 - Hyperlipidemia, unspecified (8) Essential (primary) hypertension ICD Codes: I10 - Essential (primary) hypertension (9) Hypothyroidism ICD Codes: E03.9 - Hypothyroidism, unspecified (10) Wrist fracture Status: Acute ICD Codes: S62.109A - Fracture of unspecified carpal bone, unspecified wrist, initial encounter for closed fracture (11) Osteoporosis ICD Codes: M81.0 - Age-related osteoporosis without current pathological fracture Assessment/Plan Assessment and Plan Assess & Plan/Chief Complaint Assessment: Left hip fracture Left wrist fracture Fall Postop pneumonia New onset atrial fibrillation with rapid ventricular response status post cardioversion unsuccessful and amiodarone drip x48 hours and spontaneously converted to normal sinus rhythm Oral anticoagulation for stroke prophylaxis Postop anemia Iron deficiency Hypothyroidism but low TSH placing patient at risk for atrial fibrillation so holding 25 mcg dose Depression situational type with decreased motivation Plan: Monitor labs Iron supplement Oxygen Rehab protocol Cardiology appreciated Telemetry JENIFFER VAZ DO Aug 29, 2021 20:23
[2021-08-29] MEDS: TIMOLOL MALEATE 0.5% 5 ML (TIMOPTIC) BTL OU SCH (20:48)
[2021-08-29] MEDS: LATANOPROST 0.005% (XALATAN) OPHTH SOLN 2.5 ML OU SCH (20:49)
[2021-08-29] MEDS: SIMvastatin 20 MG (ZOCOR) TAB PO SCH (20:49)
[2021-08-29] MEDS: APIXABAN 5 MG (ELIQUIS) TABLET PO SCH (20:49)
[2021-08-29] MEDS: AMIODARONE 200 MG (CORDARONE) TAB PO SCH (20:50)
[2021-08-29] MEDS ORDERED: SENNA W/DOCUSATE (SENOKOT S) TABLET PO SCH (21:00)
[2021-08-29] MEDS ORDERED: polyethylene glycoL POWDER 17 GM (MIRALAX) PACK PO SCH (21:00)
[2021-08-30] MEDS: CEFEPIME INJECTION 1,000 MG in WATER (STERILE) FOR INJECTION 10 ML IV SCH ×3 (00:33→12:48)
[2021-08-30] MEDS ORDERED: MAGNESIUM 1 GM/100 ML IVPB 100 ML IV SCH (06:00)
[2021-08-30 06:05] LABS: BASOPHILS % (AUTO) 0 % (0-10); EOSINOPHILS # (AUTO) 0.1 10^3/uL (0.0-0.3); EOSINOPHILS % (AUTO) 0 % (0-10); HEMATOCRIT 26 % (35-52); HEMOGLOBIN 8.2 g/dL (11.5-16.0); LYMPHOCYTES # (AUTO) 1.8 10^3/uL (1.0-4.0); LYMPHOCYTES % (AUTO) 14 % (12-44); MEAN CORPUSCULAR HEMOGLOBIN 30 pg (25-34); MEAN CORPUSCULAR HGB CONC 32 g/dL (32-36); MEAN CORPUSCULAR VOLUME 92 fL (80-99); MEAN PLATELET VOLUME 9.2 fL (9.0-12.2); MONOCYTES # (AUTO) 1.2 10^3/uL (0.0-1.0); MONOCYTES % (AUTO) 9 % (0-12); NEUTROPHILS # (AUTO) 10.3 10^3/uL (1.8-7.8); NEUTROPHILS % (AUTO) 75 % (42-75); PLATELET COUNT 309 10^3/uL (130-400); WHITE BLOOD COUNT 13.7 10^3/uL (4.3-11.0)
[2021-08-30 06:28] LABS: ALBUMIN 2.8 GM/DL (3.2-4.5); BILIRUBIN,TOTAL 0.7 MG/DL (0.1-1.0); CALCIUM 8.8 MG/DL (8.5-10.1); CREATININE SERUM 0.68 MG/DL (0.60-1.30); MAGNESIUM 2.3 MG/DL (1.6-2.4); POTASSIUM 4.4 MMOL/L (3.6-5.0); TOTAL PROTEIN 5.6 GM/DL (6.4-8.2)
[2021-08-30] MEDS: RT-ALBUTEROL SULF 2.5 MG/3 ML PRE-MIX VIAL INH SCH ×2 (06:41→21:35)
[2021-08-30] MEDS: KCL 10 MEQ TAB (MICRO K) PO SCH (06:49)
[2021-08-30] MEDS: CYANOCOBALAMIN 1,000 MCG (VITAMIN B-12) TABLET PO SCH (06:49)
[2021-08-30 08:00] VITALS: BP 158/67
[2021-08-30] MEDS: APIXABAN 5 MG (ELIQUIS) TABLET PO SCH ×2 (08:10→20:32)
[2021-08-30] MEDS: CALCIUM CARB + VIT D 600 MG (CALCARB + D) TAB PO SCH (08:10)
[2021-08-30] MEDS: VITAMIN D3 125 MCG (5,000 UNITS) CAPSULE PO SCH (08:10)
[2021-08-30] MEDS: HYDROcodone/APAP 5 MG/325 MG (LORTAB) TAB PO PRN ×2 (08:10→13:32)
[2021-08-30] MEDS: PANTOPRAZOLE 40 MG (PROTONIX) TAB PO SCH (08:11)
[2021-08-30] MEDS: AMIODARONE 200 MG (CORDARONE) TAB PO SCH ×2 (08:11→20:32)
[2021-08-30] MEDS: TIMOLOL MALEATE 0.5% 5 ML (TIMOPTIC) BTL OU SCH ×2 (08:12→20:36)
[2021-08-30] MEDS ORDERED: IRON SUCROSE 200 MG/10 ML (VENOFER) VIAL IV SCH (09:00)
[2021-08-30] MEDS: DOCUSATE SODIUM 100 MG (COLACE) CAP PO SCH ×2 (09:52→20:33)
[2021-08-30] MEDS: SENNA W/DOCUSATE (SENOKOT S) TABLET PO SCH ×2 (09:52→20:33)
[2021-08-30] MEDS: polyethylene glycoL POWDER 17 GM (MIRALAX) PACK PO SCH ×2 (09:52→20:33)
--- NOTE | 2021-08-30 09:52 | Physical Therapy Daily Note ---
PT Daily Note-Current Subjective Patient in WC pre tx, agrees to PT, has already been working with OT, still needs to do some ADL's, has unrated pain in left hip. Will be co-treating with OT due to poor patient mobility,strength, endurance, severe pain with activity, safety and reduce risk of falls. Appearance Patient in bed post tx with nurse call, phone, tray, all needs met. Mental Status Patient Orientation: Person, Place, Situation Transfers SCALE: Activities may be completed with or without assistive devices. 9-Xsmdgewjrp-twjcklx completes the activity by him/herself with no assistance from a helper. 5-Set-up or Clean-up Assistance-helper sets up or cleans up; patient completes activity. [place] assists only prior to or following the activity. 4-Supervision or Touching Assistance-helper provides verbal cues and/or touching/steadying and/or contact guard assistance as patient completes activity. Assistance may be provided throughout the activity or intermittently. 3-Partial/Moderate Assistance-helper does LESS THAN HALF the effort. [place] lifts, holds or supports trunk or limbs, but provides less than half the effort. 2-Substantial/Maximal Assistance-helper does MORE THAN HALF the effort. [place] lifts or holds trunk or limbs and provides more than half the effort. 4-Psrbyehnr-tnywap does ALL the effort. Patient does none of the effort to complete the activity. Or, the assistance of 2 or more helpers is required for the patient to complete the activity. If activity was not attempted, code reason: 7-Patient Refused. 9-Not Applicable-not attempted and the patient did not perform the activity before the current illness, exacerbation or injury. 10-Not Attempted due to Environmental Limitations-(lack of equipment, weather restraints, etc.). 88-Not Attempted due to Medical Conditions or Safety Concerns. Roll Left & Right (QC): 3 Sit to Lying (QC): 3 Sit to Stand (QC): 2 Chair/Fnw-bb-Yzomd Xfer(QC): 2 Assisted patient with positioning and balance during ADL's. Then patient wheeled to therapy gym and into parallel bars, max assist to stand, she was able to ambulate a bit, did this twice. Weight Bearing Left Lower Extremity: Left Weight Bearing/Tolerated NWB LUE but can bear weight on elbow Gait Training Distance: 3'x2 Gait Assistive Device: Parallel Bars After standing she was able to ambulate using the parallel bar on the right side and her platform walker on the left side, she scooted her feet forward at first but eventually was able to take small steps, did this twice. Wheelchair Training Does the Pt Use a Wheelchair?: Yes Wheel 50 ft with 2 turns (QC): 4 Type of Wheelchair: Manual 120'x2 Exercises NuStep Minutes: 10 NuStep Workload: 5 Treatments PT performed bed mobility and transfers, WC mobility, ambulation, LE strengthening, OT performed ADL's, UE positioning and safety during activity Assessment Current Status: Fair Progress patient was able to stand and take a few steps for the first time PT Short Term Goals Short Term Goals Time Frame: Sep 05, 2021 Roll Left & Right: 3 Sit to lyin Lying to sitting on side of be: 3 Sit to stand: 3 Chair/zpi-ri-mbtwa transfer: 3 Walk 10 feet: 3 PT Blood Bank Attendant Goals Retirement Goals PT Blood Bank Attendant Goals Time Frame: Sep 19, 2021 Roll Left & Right (QC): 3 (Moisés) Sit to Lying (QC): 3 (Moisés) Lying-Sitting on Side/Bed(QC): 3 (Moisés) Sit to Stand (QC): 3 (Moisés) Chair/Sfi-og-Kfibp Xfer(QC): 3 (Moisés) Toilet Transfer (QC): 3 (Moisés) Car Transfer (QC): 3 (Moisés) Does the Patient Walk: Yes Walk 10 feet (QC): 3 (Moisés) Walk 50ft with 2 Turns (QC): 3 (Moisés) Walk 150 ft (QC): 88 Walking 10ft on Uneven Surface: 3 (Moisés) 1 Step (curb) (QC): 3 (Moisés) 4 Steps (QC): 88 12 Steps (QC): 88 Picking up an Object (QC): 88 Wheel 50 feet with 2 turns (QC: 5 Wheel 150 feet: 5 PT Plan Problem List Problem List: Activity Tolerance, Functional Strength, Safety, Balance, Gait, Transfer, Bed Mobility, ROM Treatment/Plan Treatment Plan: Continue Plan of Care Treatment Plan: Bed Mobility, Education, Functional Activity Sheyla, Functional Strength, Group Therapy, Gait, Safety, Therapeutic Exercise, Transfers Treatment Duration: Sep 19, 2021 Frequency: At least 5 of 7 days/Wk (IRF) Estimated Hrs Per Day: 1.5 hours per day Patient and/or Family Agrees t: Yes Safety Risks/Education Patient Education: Gait Training, Transfer Techniques, Correct Positioning, W/C Management, Safety Issues Teaching Recipient: Patient Teaching Methods: Demonstration, Discussion Response to Teaching: Reinforcement Needed Time/GCodes Time In: 0900 Time Out: 1000 Total Billed Treatment Time: 60 Total Billed Treatment 1 visit EX 10' GT 20' FA 30' co-treated with OT from [id number] LOLLY BOND PT Aug 30, 2021 09:52
--- NOTE | 2021-08-30 10:53 | Occupational Ther Daily Note ---
OT Current Status-Daily Note Subjective Pt alert, lying in bed. Pt agrees therapy. in room. Pt eating breakfast that brought. No c/o pain. Mental Status/Objective Patient Orientation: Person, Place, Time, Situation Attachments: IV ADL-Treatment Pt requests to use BSC. Assist x2 for supine to EOB. Max A x2 for SPT from EOB to BSC. Max A x2 for toileting hygiene and clothing manipulation. Max A x2 for lower body dressing. Max A footwear. Set up for upper body dressing. Set up () for oral care. Therapy Code Descriptions/Definitions Functional [place] Measure: 0=Not Assessed/NA 4=Minimal Assistance 1=Total Assistance 5=Supervision or Setup 2=Maximal Assistance 6=Modified [place] 3=Moderate Assistance 7=Complete IndependenceSCALE: Activities may be completed with or without assistive devices. 5-Selhpjywrf-xboarep completes the activity by him/herself with no assistance from a helper. 5-Set-up or Clean-up Assistance-helper sets up or cleans up; patient completes activity. [place] assists only prior to or following the activity. 4-Supervision or Touching Assistance-helper provides verbal cues and/or touching/steadying and/or contact guard assistance as patient completes activity. Assistance may be provided throughout the activity or intermittently. 3-Partial/Moderate Assistance-helper does LESS THAN HALF the effort. [place] lifts, holds or supports trunk or limbs, but provides less than half the effort. 2-Substantial/Maximal Assistance-helper does MORE THAN HALF the effort. [place] lifts or holds trunk or limbs and provides more than half the effort. 8-Cogdllhge-yrkwpo does ALL the effort. Patient does none of the effort to complete the activity. Or, the assistance of 2 or more helpers is required for the patient to complete the activity. If activity was not attempted, code reason: 7-Patient Refused. 9-Not Applicable-not attempted and the patient did not perform the activity befo re the current illness, exacerbation or injury. 10-Not Attempted due to Environmental Limitations-(lack of equipment, weather re straints, etc.). 88-Not Attempted due to Medical Conditions or Safety Concerns. Eating (QC): 5 Oral Hygiene (QC): 5 Upper Body Dressing (QC): 5 Lower Body Dressing (QC): 1 On/Off Footwear: 2 Toileting Hygiene (QC): 1 Toilet Transfer (QC): 1 Other Treatment PT/OT co-treat([id number]), skills of 2 clinicians required to increase mobility, strengthening UE/LE and decrease fall risk. PT focusing on transfers and ambulation while OT focusing on ADLs, L UE placment during mobility and transfers. Max A x2 for sit to stand. Using FWW, pt able to take steps with OT/PT with mod A x2, see PT note for progress. After session, pt left in care of PT. All needs met. OT Short Term Goals Short Term Goals Time Frame: Sep 12, 2021 Eatin Oral hygiene: 3 Toileting hygiene: 2 Shower/bathe self: 3 Upper body dressin Lower body dressin Putting on/taking off footwear: 3 OT Packager Goals Senior Living Goals Time Frame: Sep 26, 2021 Eating (QC): 6 Oral Hygiene (QC): 5 Toileting Hygiene (QC): 4 Shower/Bathe Self (QC): 4 Upper Body Dressing (QC): 4 Lower Body Dressing (QC): 4 On/Off Footwear (QC): 4 1=Demonstrate adherence to instructed precautions during ADL tasks. 2=Patient will verbalize/demonstrate understanding of assistive devices/modifications for ADL. 3=Patient will improve strength/tolerance for activity to enable patient to per form ADL's. OT Education/Plan Problem List/Assessment Assessment: Decreased Activ Tolerance, Decreased UE Strength, Dependent Transfers, Impaired Bed Mobility, Impaired Coordination, Impaired Funct Balance, Impaired Self-Care Skills, Restricted Funct UE ROM Discharge Recommendations Plan/Recommendations: Continue POC Treatment Plan/Plan of Care Patient would benefit from OT for education, treatment and training to promote independence in ADL's, mobility, safety and/or upper extremity function for ADL's. Plan of Care: ADL Retraining, Functional Mobility, Group Exercise/Act as Ind, UE Funct Exercise/Act, W/C Management Training Treatment Duration: Sep 26, 2021 Frequency: At least 5 of 7 days/Wk (IRF) Estimated Hrs Per Day: 1.5 hours per day Agreement: Yes Rehab Potential: Guarded Time/GCodes Start Time: 08:30 Stop Time: 09:30 Total Time Billed (hr/min): 60 Billed Treatment Time 1 visit-ADL 3 (45 min) FA 1 (15 min) co-treat with PT [id number], individual [id number] DALILA HERCULES Aug 30, 2021 10:53
[2021-08-30] MEDS: ONDANSETRON 4 MG (ZOFRAN) ORAL DISSOLVE TAB PO PRN (11:24)
--- NOTE | 2021-08-30 11:30 | PM&R Progress Note ---
Subjective HPI/CC On Admission Date Seen by Provider: Aug 30, 2021 Time Seen by Provider: 11:15 Subjective/Events-last exam 08/30/2021: Patient doing really well Working hard with therapy Pain is well controlled Last IV so changed antibiotic to p.o. Stopped last few doses of iron due to no IV access Pain is pretty well controlled Review of Systems General: Fatigue, Malaise Musculoskeletal: leg pain Neurological: Weakness Objective Exam Vital Signs Vital Signs Date Time Temp Pulse Resp B/P (MAP) Pulse Ox O2 Delivery O2 Flow Rate FiO2 08/31/21 01:00 86 08/30/21 21:35 94 Room Air 08/30/21 20:00 36.8 18 136/62 (86) Capillary Refill : General Appearance: No Apparent Distress, WD/WN, Anxious, Chronically ill, Other (Fatigued and pale) HEENT: PERRL/EOMI, Normal ENT Inspection, Pharynx Normal Neck: Full Range of Motion, Normal Inspection, Non Tender, Supple, Carotid Bruit Respiratory: Chest Non Tender, Lungs Clear, Normal Breath Sounds, No Accessory Muscle Use, No Respiratory Distress, Decreased Breath Sounds Cardiovascular: Regular Rate, Rhythm, No Edema, No Gallop, No JVD, No Murmur, Normal Peripheral Pulses Gastrointestinal: Normal Bowel Sounds, No Organomegaly, No Pulsatile Mass, Non Tender, Soft Back: Normal Inspection, No CVA Tenderness, No Vertebral Tenderness Extremity: Normal Capillary Refill, Normal Inspection, Normal Range of Motion, Non Tender, No Calf Tenderness, No Pedal Edema Neurologic/Psychiatric: Alert, Oriented x3, No Motor/Sensory Deficits, margin analyst II- XII Norm as Tested, Depressed Affect, Motor Weakness (Generalized 3/5 but left leg 1/5) Skin: Normal Color, Warm/Dry Lymphatic: No Adenopathy Results/Procedures Lab Laboratory Tests 08/30/21 05:42 Patient resulted labs reviewed. FIM Transfers Therapy Code Descriptions/Definitions Functional [place] Measure: 0=Not Assessed/NA 4=Minimal Assistance 1=Total Assistance 5=Supervision or Setup 2=Maximal Assistance 6=Modified [place] 3=Moderate Assistance 7=Complete IndependenceSCALE: Activities may be completed with or without assistive devices. 0-Nyvlyncnas-txpghvq completes the activity by him/herself with no assistance from a helper. 5-Set-up or Clean-up Assistance-helper sets up or cleans up; patient completes activity. [place] assists only prior to or following the activity. 4-Supervision or Touching Assistance-helper provides verbal cues and/or touching/steadying and/or contact guard assistance as patient completes activity. Assistance may be provided throughout the activity or intermittently. 3-Partial/Moderate Assistance-helper does LESS THAN HALF the effort. [place] lifts, holds or supports trunk or limbs, but provides less than half the effort. 2-Substantial/Maximal Assistance-helper does MORE THAN HALF the effort. [place] lifts or holds trunk or limbs and provides more than half the effort. 9-Qrqylvlij-ejkepe does ALL the effort. Patient does none of the effort to complete the activity. Or, the assistance of 2 or more helpers is required for the patient to complete the activity. If activity was not attempted, code reason: 7-Patient Refused. 9-Not Applicable-not attempted and the patient did not perform the activity before the current illness, exacerbation or injury. 10-Not Attempted due to Environmental Limitations-(lack of equipment, weather restraints, etc.). 88-Not Attempted due to Medical Conditions or Safety Concerns. Roll Left to Right (QC): 3 Sit to Lying (QC): 3 Sit to Stand (QC): 2 Chair/Gjc-az-Vhdgl Xfer(QC): 2 Car Transfer (QC): 88 Gait Training Does the Patient Walk?: No and Walking Goal IS indicated Distance: 3'x2 Walk 10 feet (QC): 88 Walk 50 ft with 2 Turns(QC): 88 Walk 150 ft (QC): 88 Walking 10ft/uneven surface-QC: 88 Gait Assistive Device: Parallel Bars Wheelchair Training Does the Pt Use a Wheelchair?: Yes Distance: 100' Wheel 50 ft with 2 turns (QC): 4 Wheel 150 ft (QC): 88 Type of Wheelchair: Manual Stair Training 1 Step (curb) (QC): 88 4 Steps (QC): 88 12 Steps (QC): 88 Balance Picking up an Object (QC): 88 ADL-Treatment Eating (QC): 5 Oral Hygiene (QC): 5 Shower/Bathe Self (QC): 1 Upper Body Dressing (QC): 5 Lower Body Dressing (QC): 1 On/Off Footwear (QC): 2 Toileting Hygiene (QC): 1 Toilet Transfer (QC): 1 Assessment/Plan Assessment and Plan Assess & Plan/Chief Complaint Assessment: Left hip fracture Left wrist fracture Fall Postop pneumonia New onset atrial fibrillation with rapid ventricular response status post cardioversion unsuccessful and amiodarone drip x48 hours and spontaneously converted to normal sinus rhythm Oral anticoagulation for stroke prophylaxis Postop anemia Iron deficiency Hypothyroidism but low TSH placing patient at risk for atrial fibrillation so holding 25 mcg dose Depression situational type with decreased motivation Plan: Monitor labs Iron supplement Oxygen Rehab protocol Cardiology appreciated Telemetry 08/30/2021: Supportive care Pain control Therapy regimen (1) Hip fracture Status: Acute (2) Pneumonia (3) Anemia due to acute blood loss (4) Iron deficiency (5) Low TSH level (6) Afib (7) HLD (hyperlipidemia) (8) Essential (primary) hypertension (9) Hypothyroidism (10) Wrist fracture Status: Acute (11) Osteoporosis JENIFFER VAZ DO Aug 30, 2021 11:30
--- NOTE | 2021-08-30 11:31 | Individualized Plan of Care ---
Individualized Plan of Care Rehab Nursing IPOC Order Admission Date Aug 29, 2021 at 12:09 Current Orders Orders Admission Order(Inpt,Obs,Sdc) (08/29/21 11:38) Vital Signs: Per Unit Policy ( ,16,00 (08/29/21 11:38) Dino Abarca (08/29/21 11:38) Sequential Compression Device .admit (08/29/21 11:38) Paperboard Boxes Estimator-Inpt Rehab Con (08/29/21 11:38) Rehab Nursing Orders-Ipoc (08/29/21 11:38) Physical Therapy Rehab Orders (08/29/21 11:38) Occupational Therapy Rehab Ord (08/29/21 11:38) Speech Therapy Rehab Orders (08/29/21 11:38) Cbc With Automated Diff (08/30/21 06:00) Comprehensive Metabolic Panel (08/30/21 06:00) Precautions (Aru) (08/29/21 11:38) Rehab-Intensity Of Therapy (08/29/21 11:38) Initiate Admission Nursing Pro .admission (08/29/21 11:38) Alprazolam Tablet (Xanax Tablet) (08/29/21 11:45) Calcium Carbonate Chew Tablet (Antacid C (08/29/21 11:45) Diphenhydramine Tablet (Benadryl Tablet) (08/29/21 11:45) Docusate Sodium Capsule (Colace Capsule) (08/29/21 21:00) Docusate Sodium Capsule (Colace Capsule) (08/29/21 11:45) Bisacodyl Suppository (Dulcolax Supposit (08/29/21 11:45) Lactulose Oral Solution (Enulose Oral So (08/29/21 11:45) Na Phos/Na Biphos Enema (Fleet Enema [place] (08/29/21 11:45) Guaifenesin/Codeine Syrup (Robitussin Ac (08/29/21 11:45) Loperamide Tablet (Imodium Tablet) (08/29/21 11:45) Melatonin Tablet (Melatonin Tablet) (08/29/21 11:45) Polyethylene Glycol Powder Pkt (Miralax (08/29/21 21:00) Ondansetron Oral Dissolve Tab (Zofran (08/29/21 11:45) Senna S Tablet (Senokot S Tablet) (08/29/21 21:00) Initiate Admission Nursing Pro .admission (08/29/21 11:38) Acetaminophen Tablet (Tylenol Tablet) (08/29/21 11:45) Admission Arrival Bed Request (08/29/21 12:09) Acetaminophen Tablet/Caplet (Tylenol T (08/29/21 12:30) Code/Resuscitation (08/29/21 15:01) Dressing Order (Intervention) DAILY (08/29/21 15:01) Incentive Spirometry (Nursing) Q2H (08/29/21 15:01) Acetaminophen Tablet/Caplet (Tylenol T (08/29/21 15:15) Albuterol Pre-Mix Nebs (Rt) (Proventil (08/29/21 21:00) Apixaban Tablet (Eliquis Tablet) (08/29/21 21:00) Bisacodyl Suppository (Dulcolax Supposit (08/29/21 15:15) Cefepime Injection (Maxipime Injection) (08/29/21 18:00) Calcium Carbonate Chew Tablet (Antacid C (08/29/21 15:15) Calcium Carbonate W/Vitamin D3 (Calcarb (08/30/21 09:00) Cholecalciferol Capsule/Tablet (Vitamin (08/30/21 09:00) Cyanocobalamin Tablet (Vitamin B-12 Tabl (08/30/21 07:00) Docusate Sodium Capsule (Colace Capsule) (08/29/21 15:15) Hydrocodone/Apap 5/325 Tablet (Lortab 5 (08/29/21 15:15) Lactulose Oral Solution (Enulose Oral So (08/29/21 15:15) Latanoprost 0.005% Ophth Soln (Xalatan 0 (08/29/21 21:00) Loperamide Tablet (Imodium Tablet) (08/29/21 15:15) Magnesium 1 Gm/100 Ml Ivpb (Magnesium Tavarez (08/30/21 06:00) Melatonin Tablet (Melatonin Tablet) (08/29/21 15:15) Na Phos/Na Biphos Enema (Fleet Enema Norman (08/29/21 15:15) Ondansetron Injection (Zofran Injectio (08/29/21 15:15) Ondansetron Oral Dissolve Tab (Zofran (08/29/21 15:15) Pantoprazole Tablet (Protonix Tablet) (08/30/21 09:00) Potassium Chloride (Tablet) (Klor Con Ta (08/30/21 07:00) Senna S Tablet (Senokot S Tablet) (08/29/21 21:00) Simvastatin Tablet (Zocor Tablet) (08/29/21 21:00) Sodium Chloride Flush (Catheter Flush Sy (08/29/21 15:15) Timolol 0.5% Ophthalmic Soln (Timoptic 0 (08/29/21 21:00) Diltiazem Cd 24 Hr Capsule (Cardizem Cd (08/30/21 09:00) Diphenhydramine Tablet (Benadryl Tablet) (08/29/21 15:15) Guaifenesin/Codeine Syrup (Robitussin Ac (08/29/21 15:15) Hydralazine Injection (Apresoline Inject (08/29/21 15:15) Morphine Injection (Morphine Injection (08/29/21 15:15) Polyethylene Glycol Powder Pkt (Miralax (08/29/21 21:00) Consult Orthopedic Surgery (08/29/21 15:01) Consult Physician (08/29/21 15:01) Incentive Spirometry Initial (08/29/21 15:01) Mat Initiate Protocol (08/29/21 15:01) Telemetry (08/29/21 15:01) Svn Small Volume Nebulizer (08/29/21 15:01) Incentive Spirometry (Nursing) Q2H (08/29/21 15:01) Telemetry Nursing Assessment ( (08/29/21 15:01) Amiodarone Tablet (Cordarone Tablet) (08/29/21 21:00) General/Regular (08/29/21 Dinner) Alprazolam Tablet (Xanax Tablet) (08/29/21 15:15) Iv Convert To Heplock (Order) (08/29/21 15:06) Morphine Injection (Morphine Injection (08/29/21 15:30) Iron Sucrose Injection (Venofer Injectio (08/30/21 09:00) Flu Quad High Dose 1322-1168 (Fluzone Hi (08/29/21 15:45) Patient Visit (08/29/21 ) Pt Eval Moderate Complexity (08/29/21 ) Functional Activities, Ea 15 (08/29/21 ) Albuterol Pre-Mix Nebs (Rt) (Proventil (08/29/21 18:37) Magnesium (08/30/21 06:00) Heating Pad (08/30/21 14:36) Patient Visit (08/30/21 ) Exercise Therap, Ea 15 Min (08/30/21 ) Gait Training, Ea 15 Min (08/30/21 ) Patient Visit (08/30/21 ) Functional Activities, Ea 15 (08/30/21 ) Exercise Therap, Ea 15 Min (08/30/21 ) Gait Training, Ea 15 Min (08/30/21 ) Cefdinir Capsule (Omnicef Capsule) (08/30/21 18:00) Rehab Nursing Orders: Ongoing Assess. of Cognitive Status, Ongoing Assess. of Function Status, Bladder Management, Bladder Scan, Bladder Training, Bowel Management, Bowel Training, Disease Management & Educaiton, DVT Prophylaxis, Fall Prevention, Fluid/Electrolyte/Nutrition Mgmt, Infection Prevention, Medication Management & Education, Management of Risks & Complications, Management of Skin Intergrity, Nutrition Management, Pain Management, Patient/Family Support, Safety Management, Weight Bearing Precaution, Wound Management Intensity of Therapy to be met Patient to be seen: Min.3h per day/5 of 7d PT IPOC Problem List: Activity Tolerance, Functional Strength, Safety, Balance, Gait, Transfer, Bed Mobility, ROM Treatment Plan: Continue Plan of Care Bed Mobility, Education, Functional Activity Sheyla, Functional Strength, Group Therapy, Gait, Safety, Therapeutic Exercise, Transfers Treatment Duration: Sep 19, 2021 Frequency: At least 5 of 7 days/Wk (IRF) Estimated Hrs Per Day: 1.5 hours per day OT IPOC Problems: Decreased Activ Tolerance, Decreased UE Strength, Dependent Transfers, Impaired Bed Mobility, Impaired Coordination, Impaired Funct Balance, Impaired Self-Care Skills, Restricted Funct UE ROM OT Treatment, Training and Edu: Yes Plan of Care: ADL Retraining, Functional Mobility, Group Exercise/Act as Ind, UE Funct Exercise/Act, W/C Management Training Treatment Duration: Sep 26, 2021 Frequency: At least 5 of 7 days/Wk (IRF) Estimated Hrs Per Day: 1.[address] IPOC Speech Therapy Treatment Plan: Modify Plan, See Comments Treatment Duration: Aug 30, 2021 Frequency: Modified Program (IRF) Estimated Hrs Per Day: Other Paperboard Boxes Estimator/Case Mgmt Paperboard Boxes Estimator/Case Managemen: Discharge Planning Dietitian/Metal Tank Builder Dietitian/Metal Tank Builder to monitor nutritional status and make changes and/or recommendations as needed and work with speech pathology on dietary upgrades as the occur. Physician IP Medical Issues being managed closely and that require the 24 hour availability of a physician: Patient with recent hip fracture and wrist fracture with new onset A. fib with RVR then facility acquired pneumonia will require close monitoring for decompensation Medical Issues: Bowel/Bladder Function, DVT Prophylaxis, Falls Precautions, Fluid/Electrolyte/Nutrition Balance, Infection Protection, Pain Management, Wound Care Brief Synthesis of Preadmission Screen, Post-Admission Evaluation, and Therapy Evaluations: PT and OT will focus on regaining function with use of assistive devices with platform to help regain ambulatory function in addition to increasing inde pendence in ADLs to return to independent living with spouse Medical Prognosis: Good Anticipated Length of Stay: 14 days JENIFFER VAZ DO Aug 30, 2021 11:31
--- NOTE | 2021-08-30 14:29 | Occupational Ther Daily Note ---
OT Current Status-Daily Note Subjective Pt alert, sitting on toilet. Pt agrees to therapy. Pt c/o pain, rated 5/10. Nrsg brought pain meds. Mental Status/Objective Patient Orientation: Person, Place, Time, Situation Attachments: IV ADL-Treatment Mod A x2 for SPT using FWW from [facility]. Mod A x2 for toileting. Max A x2 for EOB to supine. Mod A x2 to complete lower body dressing. Therapy Code Descriptions/Definitions Functional [place] Measure: 0=Not Assessed/NA 4=Minimal Assistance 1=Total Assistance 5=Supervision or Setup 2=Maximal Assistance 6=Modified [place] 3=Moderate Assistance 7=Complete IndependenceSCALE: Activities may be completed with or without assistive devices. 7-Tbxyrcwctx-clgngqi completes the activity by him/herself with no assistance from a helper. 5-Set-up or Clean-up Assistance-helper sets up or cleans up; patient completes activity. [place] assists only prior to or following the activity. 4-Supervision or Touching Assistance-helper provides verbal cues and/or touching/steadying and/or contact guard assistance as patient completes activity. Assistance may be provided throughout the activity or intermittently. 3-Partial/Moderate Assistance-helper does LESS THAN HALF the effort. [place] lifts, holds or supports trunk or limbs, but provides less than half the effort. 2-Substantial/Maximal Assistance-helper does MORE THAN HALF the effort. [place] lifts or holds trunk or limbs and provides more than half the effort. 6-Qqsyjrrtl-mwfrye does ALL the effort. Patient does none of the effort to complete the activity. Or, the assistance of 2 or more helpers is required for the patient to complete the activity. If activity was not attempted, code reason: 7-Patient Refused. 9-Not Applicable-not attempted and the patient did not perform the activity before the current illness, exacerbation or injury. 10-Not Attempted due to Environmental Limitations-(lack of equipment, weather restraints, etc.). 88-Not Attempted due to Medical Conditions or Safety Concerns. Upper Body Dressing (QC): 5 Lower Body Dressing (QC): 1 On/Off Footwear: 2 Toileting Hygiene (QC): 1 Toilet Transfer (QC): 1 OT Short Term Goals Short Term Goals Time Frame: Sep 12, 2021 Eatin Oral hygiene: 3 Toileting hygiene: 2 Shower/bathe self: 3 Upper body dressin Lower body dressin Putting on/taking off footwear: 3 OT Jail Goals Jail Goals Time Frame: Sep 26, 2021 Eating (QC): 6 Oral Hygiene (QC): 5 Toileting Hygiene (QC): 4 Shower/Bathe Self (QC): 4 Upper Body Dressing (QC): 4 Lower Body Dressing (QC): 4 On/Off Footwear (QC): 4 1=Demonstrate adherence to instructed precautions during ADL tasks. 2=Patient will verbalize/demonstrate understanding of assistive devices/modific ations for ADL. 3=Patient will improve strength/tolerance for activity to enable patient to perform ADL's. OT Education/Plan Problem List/Assessment Assessment: Decreased Activ Tolerance, Decreased UE Strength, Dependent Transfers, Impaired Bed Mobility, Impaired Coordination, Impaired Funct Balance, Impaired Self-Care Skills Discharge Recommendations Plan/Recommendations: Continue POC Treatment Plan/Plan of Care Patient would benefit from OT for education, treatment and training to promote independence in ADL's, mobility, safety and/or upper extremity function for ADL's. Plan of Care: ADL Retraining, Functional Mobility, Group Exercise/Act as Ind, UE Funct Exercise/Act, W/C Management Training Treatment Duration: Sep 26, 2021 Frequency: At least 5 of 7 days/Wk (IRF) Estimated Hrs Per Day: 1.5 hours per day Agreement: Yes Rehab Potential: Guarded Time/GCodes Start Time: 13:20 Stop Time: 13:50 Total Time Billed (hr/min): 30 Billed Treatment Time 1 visit-ADL 1 (15 min) EX 1 (15 min) DALILA HERCULES Aug 30, 2021 14:29
--- NOTE | 2021-08-30 14:52 | Physical Therapy Daily Note ---
PT Daily Note-Current Subjective Patient reports 0/10 pain currently at rest in bed. Agreeable to treatment but states "I just had OT put me to bed because I was tired." Mental Status Patient Orientation: Person, Place, Time, Situation Transfers SCALE: Activities may be completed with or without assistive devices. 4-Ocqzckazbd-lyjvkcv completes the activity by him/herself with no assistance from a helper. 5-Set-up or Clean-up Assistance-helper sets up or cleans up; patient completes activity. [place] assists only prior to or following the activity. 4-Supervision or Touching Assistance-helper provides verbal cues and/or touching/steadying and/or contact guard assistance as patient completes activity. Assistance may be provided throughout the activity or intermittently. 3-Partial/Moderate Assistance-helper does LESS THAN HALF the effort. [place] lifts, holds or supports trunk or limbs, but provides less than half the effort. 2-Substantial/Maximal Assistance-helper does MORE THAN HALF the effort. [place] lifts or holds trunk or limbs and provides more than half the effort. 1-Wqijeastf-nutlxw does ALL the effort. Patient does none of the effort to complete the activity. Or, the assistance of 2 or more helpers is required for the patient to complete the activity. If activity was not attempted, code reason: 7-Patient Refused. 9-Not Applicable-not attempted and the patient did not perform the activity before the current illness, exacerbation or injury. 10-Not Attempted due to Environmental Limitations-(lack of equipment, weather restraints, etc.). 88-Not Attempted due to Medical Conditions or Safety Concerns. Roll Left & Right (QC): 3 Sit to Lying (QC): 3 Lying to Sitting/Side of Bed(Q: 3 Sit to Stand (QC): 2 Chair/Vhp-fn-Jmqvu Xfer(QC): 2 Weight Bearing Left Lower Extremity: Left Weight Bearing/Tolerated NWB LUE but can bear weight on elbow Gait Training Does the Patient Walk?: Yes Distance: 5 feet, 10 feet Walk 10 feet (QC): 2 Gait Assistive Device: FWW Patient ambulates with left platform FWW Wheelchair Training Does the Pt Use a Wheelchair?: Yes Exercises Supine Ex: Ankle pumps, Quad Set, Glut sets, Heel Slides, Short Arc Quads, Straight leg raise, Hip abd/add Supine Reps: 20 Treatments Visit, Gait, Ex Assessment Current Status: Fair Progress Patient tolerated treatment fair. Demonstrates good overall effort. Patient performs therapeutic exercise as listed above. Patient performs all observed bed mobility and transfers with mod/max A and verbal cues for performance and safety. Patient ambulates 5 feet, then 10 feet with left platform FWW, with max A and verbal cues for safety, progression, posture, conservation of energy. Patient ambulates with forward trunk posture, head down throughout the gait cycle, and demonstrates difficulty progressing the left LE forwards, however reports that she felt it was easier to move this session. Patient in bed post treatment with all needs met, nursing notified, call light in hand. PT Short Term Goals Short Term Goals Time Frame: Sep 05, 2021 Roll Left & Right: 3 Sit to lyin Lying to sitting on side of be: 3 Sit to stand: 3 Chair/nli-pt-vjbnf transfer: 3 Walk 10 feet: 3 PT Instrumentation Tech Goals Instrumentation Tech Goals PT Instrumentation Tech Goals Time Frame: Sep 19, 2021 Roll Left & Right (QC): 3 (Moisés) Sit to Lying (QC): 3 (Moisés) Lying-Sitting on Side/Bed(QC): 3 (Moisés) Sit to Stand (QC): 3 (Moisés) Chair/Qwl-eo-Uzfxj Xfer(QC): 3 (Moisés) Toilet Transfer (QC): 3 (Moisés) Car Transfer (QC): 3 (Moisés) Does the Patient Walk: Yes Walk 10 feet (QC): 3 (Moisés) Walk 50ft with 2 Turns (QC): 3 (Moisés) Walk 150 ft (QC): 88 Walking 10ft on Uneven Surface: 3 (Moisés) 1 Step (curb) (QC): 3 (Moisés) 4 Steps (QC): 88 12 Steps (QC): 88 Picking up an Object (QC): 88 Wheel 50 feet with 2 turns (QC: 5 Wheel 150 feet: 5 PT Plan Treatment/Plan Treatment Plan: Continue Plan of Care Treatment Plan: Bed Mobility, Education, Functional Activity Sheyla, Functional Strength, Group Therapy, Gait, Safety, Therapeutic Exercise, Transfers Treatment Duration: Sep 19, 2021 Frequency: At least 5 of 7 days/Wk (IRF) Estimated Hrs Per Day: 1.5 hours per day Patient and/or Family Agrees t: Yes Safety Risks/Education Patient Education: Gait Training, Transfer Techniques, Reviewed Precautions Teaching Recipient: Patient Teaching Methods: Demonstration, Discussion Response to Teaching: Verbalize Understanding, Return Demonstration Time/GCodes Time In: 1330 Time Out: 1400 Total Billed Treatment Time: 30 Total Billed Treatment Visit, bertin, SARAH Esparza PT Aug 30, 2021 14:52
[2021-08-30] MEDS: CEFDINIR 300 MG (OMNICEF) CAP PO SCH (17:43)
[2021-08-30 20:00] VITALS: BP 136/62
[2021-08-30] MEDS: SIMvastatin 20 MG (ZOCOR) TAB PO SCH (20:32)
[2021-08-30] MEDS: LATANOPROST 0.005% (XALATAN) OPHTH SOLN 2.5 ML OU SCH (20:36)
[2021-08-31] MEDS: CYANOCOBALAMIN 1,000 MCG (VITAMIN B-12) TABLET PO SCH (06:24)
[2021-08-31] MEDS: CEFDINIR 300 MG (OMNICEF) CAP PO SCH ×2 (06:25→17:35)
[2021-08-31] MEDS: KCL 10 MEQ TAB (MICRO K) PO SCH (06:25)
[2021-08-31] MEDS: RT-ALBUTEROL SULF 2.5 MG/3 ML PRE-MIX VIAL INH SCH ×2 (07:20→21:03)
[2021-08-31 08:00] VITALS: BP 125/60
[2021-08-31] MEDS: HYDROcodone/APAP 5 MG/325 MG (LORTAB) TAB PO PRN (08:02)
--- NOTE | 2021-08-31 09:23 | Physical Therapy Daily Note ---
PT Daily Note-Current Subjective Patient in recliner pre tx, agrees to PT, has 5/10 pain in left hip. Appearance Patient in bed post tx with nurse call, phone, tray, all needs met. Mental Status Patient Orientation: Person, Place, Situation Transfers SCALE: Activities may be completed with or without assistive devices. 9-Rfunzljktu-lfsfzhm completes the activity by him/herself with no assistance from a helper. 5-Set-up or Clean-up Assistance-helper sets up or cleans up; patient completes activity. [place] assists only prior to or following the activity. 4-Supervision or Touching Assistance-helper provides verbal cues and/or touching /steadying and/or contact guard assistance as patient completes activity. Assistance may be provided throughout the activity or intermittently. 3-Partial/Moderate Assistance-helper does LESS THAN HALF the effort. [place] lifts, holds or supports trunk or limbs, but provides less than half the effort. 2-Substantial/Maximal Assistance-helper does MORE THAN HALF the effort. [place] lifts or holds trunk or limbs and provides more than half the effort. 8-Bhiauzaxu-rtgfac does ALL the effort. Patient does none of the effort to complete the activity. Or, the assistance of 2 or more helpers is required for the patient to complete the activity. If activity was not attempted, code reason: 7-Patient Refused. 9-Not Applicable-not attempted and the patient did not perform the activity before the current illness, exacerbation or injury. 10-Not Attempted due to Environmental Limitations-(lack of equipment, weather restraints, etc.). 88-Not Attempted due to Medical Conditions or Safety Concerns. Roll Left & Right (QC): 3 Sit to Lying (QC): 3 Sit to Stand (QC): 2 Chair/Riv-as-Uwrvr Xfer(QC): 3 Toilet Transfer (QC): 2 Patient needs to use the restroom, sit to stand from recliner with min to mod assist and she ambulates to the restroom, sits on toilet with min assist after getting her brief down, when done a new brief if obtained and put on, then she stands and a tech wipes while PT stands with max assist (without using walker), patient was not able to stand from toilet using the walker even with max assist, brief is pulled up and mod assist stand pivot to , taken to bed and max assist stand and mod assist pivot to bed, min assist sit to supine. Weight Bearing Left Lower Extremity: Left Weight Bearing/Tolerated NWB LUE but can bear weight on elbow Gait Training Distance: 15' Walk 10 feet (QC): 3 Gait Persons Needed: 1 Gait Assistive Device: Walker Platform min assist mostly to help guide walker, patient performs a step-to gait pattern, very small steps Treatments bed mobility and transfers, ambulation, toileting Assessment Current Status: Poor Progress very slow progress but she did ambulate further PT Short Term Goals Short Term Goals Time Frame: Sep 05, 2021 Roll Left & Right: 3 Sit to lyin Lying to sitting on side of be: 3 Sit to stand: 3 Chair/vhj-nv-xzolx transfer: 3 Walk 10 feet: 3 PT Regulatory Law Specialist Goals Longterm Goals PT Longterm Goals Time Frame: Sep 19, 2021 Roll Left & Right (QC): 3 (Moisés) Sit to Lying (QC): 3 (Moisés) Lying-Sitting on Side/Bed(QC): 3 (Moisés) Sit to Stand (QC): 3 (Moisés) Chair/Gbf-ks-Jxwrd Xfer(QC): 3 (Moisés) Toilet Transfer (QC): 3 (Moisés) Car Transfer (QC): 3 (Moisés) Does the Patient Walk: Yes Walk 10 feet (QC): 3 (Moisés) Walk 50ft with 2 Turns (QC): 3 (Moisés) Walk 150 ft (QC): 88 Walking 10ft on Uneven Surface: 3 (Moisés) 1 Step (curb) (QC): 3 (Moisés) 4 Steps (QC): 88 12 Steps (QC): 88 Picking up an Object (QC): 88 Wheel 50 feet with 2 turns (QC: 5 Wheel 150 feet: 5 PT Plan Problem List Problem List: Activity Tolerance, Functional Strength, Safety, Balance, Gait, Transfer, Bed Mobility, ROM Treatment/Plan Treatment Plan: Continue Plan of Care Treatment Plan: Bed Mobility, Education, Functional Activity She[place], Functional Strength, Group Therapy, Gait, Safety, Therapeutic Exercise, Transfers Treatment Duration: Sep 19, 2021 Frequency: At least 5 of 7 days/Wk (IRF) Estimated Hrs Per Day: 1.5 hours per day Patient and/or Family Agrees t: Yes Safety Risks/Education Patient Education: Gait Training, Transfer Techniques, Correct Positioning, Safety Issues Teaching Recipient: Patient Teaching Methods: Demonstration, Discussion Response to Teaching: Reinforcement Needed Time/GCodes Time In: 0840 Time Out: 09 Total Billed Treatment Time: 20 Total Billed Treatment 1 visit FA Beckie' LOLLY BOND PT Aug 31, 2021 09:23
[2021-08-31] MEDS: CALCIUM CARB + VIT D 600 MG (CALCARB + D) TAB PO SCH (09:35)
[2021-08-31] MEDS: PANTOPRAZOLE 40 MG (PROTONIX) TAB PO SCH (09:36)
[2021-08-31] MEDS: VITAMIN D3 125 MCG (5,000 UNITS) CAPSULE PO SCH (09:36)
[2021-08-31] MEDS: SENNA W/DOCUSATE (SENOKOT S) TABLET PO SCH ×2 (09:36→21:40)
[2021-08-31] MEDS: APIXABAN 5 MG (ELIQUIS) TABLET PO SCH ×2 (09:36→21:35)
[2021-08-31] MEDS: DOCUSATE SODIUM 100 MG (COLACE) CAP PO SCH ×2 (09:36→21:35)
[2021-08-31] MEDS: AMIODARONE 200 MG (CORDARONE) TAB PO SCH ×2 (09:36→21:35)
[2021-08-31] MEDS: polyethylene glycoL POWDER 17 GM (MIRALAX) PACK PO SCH ×2 (09:36→21:40)
[2021-08-31] MEDS: TIMOLOL MALEATE 0.5% 5 ML (TIMOPTIC) BTL OU SCH ×2 (09:40→21:38)
[2021-08-31] MEDS: ACETAMINOPHEN 325 MG TABLET PO PRN ×2 (09:49→21:37)
--- NOTE | 2021-08-31 10:20 | PM&R Progress Note ---
Subjective HPI/CC On Admission Date Seen by Provider: Aug 31, 2021 Time Seen by Provider: 13:00 Subjective/Events-last exam 08/31/2021: Patient doing well Right arm from IV infiltration is sore so alternating between ice and K pad at the bedside Making progress in therapy 08/30/2021: Patient doing really well Working hard with therapy Pain is well controlled Last IV so changed antibiotic to p.o. Stopped last few doses of iron due to no IV access Pain is pretty well controlled Review of Systems General: Fatigue Musculoskeletal: leg pain Objective Exam Vital Signs Vital Signs Date Time Temp Pulse Resp B/P (MAP) Pulse Ox O2 Delivery O2 Flow Rate FiO2 08/31/21 21:03 97 Room Air 08/31/21 20:00 36.4 94 18 147/67 (93) Capillary Refill : General Appearance: No Apparent Distress, WD/WN, Anxious, Chronically ill, Other (Fatigued and pale) HEENT: PERRL/EOMI, Normal ENT Inspection, Pharynx Normal Neck: Full Range of Motion, Normal Inspection, Non Tender, Supple, Carotid Bruit Respiratory: Chest Non Tender, Lungs Clear, Normal Breath Sounds, No Accessory Muscle Use, No Respiratory Distress, Decreased Breath Sounds Cardiovascular: Regular Rate, Rhythm, No Edema, No Gallop, No JVD, No Murmur, Normal Peripheral Pulses Gastrointestinal: Normal Bowel Sounds, No Organomegaly, No Pulsatile Mass, Non Tender, Soft Back: Normal Inspection, No CVA Tenderness, No Vertebral Tenderness Extremity: Normal Capillary Refill, Normal Inspection, Normal Range of Motion, Non Tender, No Calf Tenderness, No Pedal Edema Neurologic/Psychiatric: Alert, Oriented x3, No Motor/Sensory Deficits, 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 FIM Transfers Therapy Code Descriptions/Definitions Functional [place] Measure: 0=Not Assessed/NA 4=Minimal Assistance 1=Total Assistance 5=Supervision or Setup 2=Maximal Assistance 6=Modified [place] 3=Moderate Assistance 7=Complete IndependenceSCALE: Activities may be completed with or without assistive devices. 1-Aichbxlgar-qccspyb completes the activity by him/herself with no assistance from a helper. 5-Set-up or Clean-up Assistance-helper sets up or cleans up; patient completes activity. [place] assists only prior to or following the activity. 4-Supervision or Touching Assistance-helper provides verbal cues and/or touching/steadying and/or contact guard assistance as patient completes activity. Assistance may be provided throughout the activity or intermittently. 3-Partial/Moderate Assistance-helper does LESS THAN HALF the effort. [place] lifts, holds or supports trunk or limbs, but provides less than half the effort. 2-Substantial/Maximal Assistance-helper does MORE THAN HALF the effort. [place] lifts or holds trunk or limbs and provides more than half the effort. 6-Qjugsguuc-wiwbwr does ALL the effort. Patient does none of the effort to complete the activity. Or, the assistance of 2 or more helpers is required for the patient to complete the activity. If activity was not attempted, code reason: 7-Patient Refused. 9-Not Applicable-not attempted and the patient did not perform the activity before the current illness, exacerbation or injury. 10-Not Attempted due to Environmental Limitations-(lack of equipment, weather restraints, etc.). 88-Not Attempted due to Medical Conditions or Safety Concerns. Roll Left to Right (QC): 3 Sit to Lying (QC): 3 Sit to Stand (QC): 2 Chair/Zjk-ao-Fizfq Xfer(QC): 3 Car Transfer (QC): 88 Gait Training Does the Patient Walk?: Yes Distance: 15' Walk 10 feet (QC): 3 Walk 50 ft with 2 Turns(QC): 88 Walk 150 ft (QC): 88 Walking 10ft/uneven surface-QC: 88 Gait Persons Needed: 1 Gait Assistive Device: Walker Platform Wheelchair Training Does the Pt Use a Wheelchair?: Yes Distance: 100' Wheel 50 ft with 2 turns (QC): 4 Wheel 150 ft (QC): 88 Type of Wheelchair: Manual Stair Training 1 Step (curb) (QC): 88 4 Steps (QC): 88 12 Steps (QC): 88 Balance Picking up an Object (QC): 88 ADL-Treatment Eating (QC): 5 Oral Hygiene (QC): 5 Shower/Bathe Self (QC): 1 Upper Body Dressing (QC): 5 Lower Body Dressing (QC): 1 On/Off Footwear (QC): 2 Toileting Hygiene (QC): 1 Toilet Transfer (QC): 1 Assessment/Plan Assessment and Plan Assess & Plan/Chief Complaint Assessment: Left hip fracture Left wrist fracture Fall Postop pneumonia New onset atrial fibrillation with rapid ventricular response status post cardioversion unsuccessful and amiodarone drip x48 hours and spontaneously converted to normal sinus rhythm Oral anticoagulation for stroke prophylaxis Postop anemia Iron deficiency Hypothyroidism but low TSH placing patient at risk for atrial fibrillation so holding 25 mcg dose Depression situational type with decreased motivation IV infiltration right arm Plan: Monitor labs Iron supplement Oxygen Rehab protocol Cardiology appreciated Telemetry 08/30/2021: Supportive care Pain control Therapy regimen 08/31/2021: Transition to oral antibiotics K pad and ice to right arm (1) Hip fracture Status: Acute (2) Pneumonia (3) Anemia due to acute blood loss (4) Iron deficiency (5) Low TSH level (6) Afib (7) HLD (hyperlipidemia) (8) Essential (primary) hypertension (9) Hypothyroidism (10) Wrist fracture Status: Acute (11) Osteoporosis JENIFFER VAZ DO Aug 31, 2021 10:20
[2021-08-31 20:00] VITALS: BP 147/67
[2021-08-31] MEDS: SIMvastatin 20 MG (ZOCOR) TAB PO SCH (21:35)
[2021-08-31] MEDS: LATANOPROST 0.005% (XALATAN) OPHTH SOLN 2.5 ML OU SCH (21:39)
--- NOTE | 2021-09-01 06:42 | PM&R Progress Note ---
Subjective HPI/CC On Admission Date Seen by Provider: Sep 01, 2021 Time Seen by Provider: 13:00 Subjective/Events-last exam 09/01/21: Patient doing really well Tolerating pain with Tylenol only Lortab will be reserved before therapy Bowels are moving Voiding okay Dressing changes appear to be doing well 08/31/2021: Patient doing well Right arm from IV infiltration is sore so alternating between ice and K pad at the bedside Making progress in therapy 08/30/2021: Patient doing really well Working hard with therapy Pain is well controlled Last IV so changed antibiotic to p.o. Stopped last few doses of iron due to no IV access Pain is pretty well controlled Review of Systems General: Fatigue, Malaise Musculoskeletal: arm pain, leg pain Neurological: Weakness Objective Exam Vital Signs Vital Signs Date Time Temp Pulse Resp B/P (MAP) Pulse Ox O2 Delivery O2 Flow Rate FiO2 09/01/21 20:51 99 Room Air 09/01/21 19:48 36.7 96 18 137/73 (94) 09/01/21 18:54 24 Capillary Refill : General Appearance: No Apparent Distress, WD/WN, Anxious, Chronically ill, Other (Fatigued and pale) HEENT: PERRL/EOMI, Normal ENT Inspection, Pharynx Normal Neck: Full Range of Motion, Normal Inspection, Non Tender, Supple, Carotid Bruit Respiratory: Chest Non Tender, Lungs Clear, Normal Breath Sounds, No Accessory Muscle Use, No Respiratory Distress, Decreased Breath Sounds Cardiovascular: Regular Rate, Rhythm, No Edema, No Gallop, No JVD, No Murmur, Normal Peripheral Pulses Gastrointestinal: Normal Bowel Sounds, No Organomegaly, No Pulsatile Mass, Non Tender, Soft Back: Normal Inspection, No CVA Tenderness, No Vertebral Tenderness Extremity: Normal Capillary Refill, Normal Inspection, Normal Range of Motion, Non Tender, No Calf Tenderness, No Pedal Edema Neurologic/Psychiatric: Alert, Oriented x3, No Motor/Sensory Deficits, 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 FIM Transfers Therapy Code Descriptions/Definitions Functional [place] Measure: 0=Not Assessed/NA 4=Minimal Assistance 1=Total Assistance 5=Supervision or Setup 2=Maximal Assistance 6=Modified [place] 3=Moderate Assistance 7=Complete IndependenceSCALE: Activities may be completed with or without assistive devices. 9-Rfvumphvkf-hzvenac completes the activity by him/herself with no assistance from a helper. 5-Set-up or Clean-up Assistance-helper sets up or cleans up; patient completes activity. [place] assists only prior to or following the activity. 4-Supervision or Touching Assistance-helper provides verbal cues and/or touching/steadying and/or contact guard assistance as patient completes activity. Assistance may be provided throughout the activity or intermittently. 3-Partial/Moderate Assistance-helper does LESS THAN HALF the effort. [place] lifts, holds or supports trunk or limbs, but provides less than half the effort. 2-Substantial/Maximal Assistance-helper does MORE THAN HALF the effort. [place] lifts or holds trunk or limbs and provides more than half the effort. 9-Qcbvvofry-vsluqw does ALL the effort. Patient does none of the effort to complete the activity. Or, the assistance of 2 or more helpers is required for the patient to complete the activity. If activity was not attempted, code reason: 7-Patient Refused. 9-Not Applicable-not attempted and the patient did not perform the activity before the current illness, exacerbation or injury. 10-Not Attempted due to Environmental Limitations-(lack of equipment, weather restraints, etc.). 88-Not Attempted due to Medical Conditions or Safety Concerns. Roll Left to Right (QC): 3 Sit to Lying (QC): 3 Sit to Stand (QC): 2 Chair/Ndm-xh-Mkrpq Xfer(QC): 3 Car Transfer (QC): 88 Gait Training Does the Patient Walk?: Yes Distance: 15' Walk 10 feet (QC): 3 Walk 50 ft with 2 Turns(QC): 88 Walk 150 ft (QC): 88 Walking 10ft/uneven surface-QC: 88 Gait Persons Needed: 1 Gait Assistive Device: Walker Platform Wheelchair Training Does the Pt Use a Wheelchair?: Yes Distance: 100' Wheel 50 ft with 2 turns (QC): 4 Wheel 150 ft (QC): 88 Type of Wheelchair: Manual Stair Training 1 Step (curb) (QC): 88 4 Steps (QC): 88 12 Steps (QC): 88 Balance Picking up an Object (QC): 88 ADL-Treatment Eating (QC): 5 Oral Hygiene (QC): 5 Shower/Bathe Self (QC): 1 Upper Body Dressing (QC): 5 Lower Body Dressing (QC): 1 On/Off Footwear (QC): 2 Toileting Hygiene (QC): 1 Toilet Transfer (QC): 1 Assessment/Plan Assessment and Plan Assess & Plan/Chief Complaint Assessment: Left hip fracture Left wrist fracture Fall Postop pneumonia New onset atrial fibrillation with rapid ventricular response status post car dioversion unsuccessful and amiodarone drip x48 hours and spontaneously converted to normal sinus rhythm Oral anticoagulation for stroke prophylaxis Postop anemia Iron deficiency Hypothyroidism but low TSH placing patient at risk for atrial fibrillation so holding 25 mcg dose Depression situational type with decreased motivation IV infiltration right arm Plan: Monitor labs Iron supplement Oxygen Rehab protocol Cardiology appreciated Telemetry 08/30/2021: Supportive care Pain control Therapy regimen 08/31/2021: Transition to oral antibiotics K pad and ice to right arm 09/01/21: Monitor closely Pain control (1) Hip fracture Status: Acute (2) Pneumonia (3) Anemia due to acute blood loss (4) Iron deficiency (5) Low TSH level (6) Afib (7) HLD (hyperlipidemia) (8) Essential (primary) hypertension (9) Hypothyroidism (10) Wrist fracture Status: Acute (11) Osteoporosis JENIFFER VAZ DO Sep 01, 2021 06:42
[2021-09-01] MEDS: KCL 10 MEQ TAB (MICRO K) PO SCH (06:44)
[2021-09-01] MEDS: CYANOCOBALAMIN 1,000 MCG (VITAMIN B-12) TABLET PO SCH (06:44)
[2021-09-01] MEDS: CEFDINIR 300 MG (OMNICEF) CAP PO SCH ×2 (06:44→18:49)
[2021-09-01 07:30] VITALS: BP 148/67
[2021-09-01] MEDS: RT-ALBUTEROL SULF 2.5 MG/3 ML PRE-MIX VIAL INH SCH ×2 (09:08→20:51)
[2021-09-01] MEDS: AMIODARONE 200 MG (CORDARONE) TAB PO SCH ×2 (10:00→21:55)
[2021-09-01] MEDS: CALCIUM CARB + VIT D 600 MG (CALCARB + D) TAB PO SCH (10:00)
[2021-09-01] MEDS: PANTOPRAZOLE 40 MG (PROTONIX) TAB PO SCH (10:00)
[2021-09-01] MEDS: VITAMIN D3 125 MCG (5,000 UNITS) CAPSULE PO SCH (10:00)
[2021-09-01] MEDS: APIXABAN 5 MG (ELIQUIS) TABLET PO SCH ×2 (10:00→21:55)
[2021-09-01] MEDS: ACETAMINOPHEN 325 MG TABLET PO PRN (10:01)
[2021-09-01] MEDS: DOCUSATE SODIUM 100 MG (COLACE) CAP PO SCH ×2 (10:04→21:45)
[2021-09-01] MEDS: polyethylene glycoL POWDER 17 GM (MIRALAX) PACK PO SCH ×2 (10:05→21:45)
[2021-09-01] MEDS: SENNA W/DOCUSATE (SENOKOT S) TABLET PO SCH ×2 (10:05→21:45)
[2021-09-01] MEDS: TIMOLOL MALEATE 0.5% 5 ML (TIMOPTIC) BTL OU SCH ×2 (10:06→22:02)
[2021-09-01 18:54] VITALS: BP 147/67
[2021-09-01 19:48] VITALS: BP 137/73
[2021-09-01] MEDS: SIMvastatin 20 MG (ZOCOR) TAB PO SCH (21:55)
[2021-09-01] MEDS: HYDROcodone/APAP 5 MG/325 MG (LORTAB) TAB PO PRN (21:55)
[2021-09-01] MEDS: LATANOPROST 0.005% (XALATAN) OPHTH SOLN 2.5 ML OU SCH (22:03)
[2021-09-02 06:04] LABS: BASOPHILS % (AUTO) 0 % (0-10); EOSINOPHILS # (AUTO) 0.1 10^3/uL (0.0-0.3); EOSINOPHILS % (AUTO) 1 % (0-10); HEMATOCRIT 26 % (35-52); HEMOGLOBIN 8.3 g/dL (11.5-16.0); LYMPHOCYTES # (AUTO) 1.9 10^3/uL (1.0-4.0); LYMPHOCYTES % (AUTO) 13 % (12-44); MEAN CORPUSCULAR HEMOGLOBIN 30 pg (25-34); MEAN CORPUSCULAR HGB CONC 31 g/dL (32-36); MEAN CORPUSCULAR VOLUME 94 fL (80-99); MEAN PLATELET VOLUME 9.1 fL (9.0-12.2); MONOCYTES # (AUTO) 0.9 10^3/uL (0.0-1.0); MONOCYTES % (AUTO) 6 % (0-12); NEUTROPHILS # (AUTO) 11.5 10^3/uL (1.8-7.8); NEUTROPHILS % (AUTO) 78 % (42-75); PLATELET COUNT 437 10^3/uL (130-400); WHITE BLOOD COUNT 14.7 10^3/uL (4.3-11.0)
[2021-09-02] MEDS: CYANOCOBALAMIN 1,000 MCG (VITAMIN B-12) TABLET PO SCH (06:14)
[2021-09-02] MEDS: CEFDINIR 300 MG (OMNICEF) CAP PO SCH ×2 (06:14→18:28)
[2021-09-02] MEDS: KCL 10 MEQ TAB (MICRO K) PO SCH (06:14)
[2021-09-02 06:19] LABS: ALBUMIN 2.9 GM/DL (3.2-4.5); POTASSIUM 4.3 MMOL/L (3.6-5.0)
[2021-09-02 06:20] LABS: CALCIUM 8.9 MG/DL (8.5-10.1)
[2021-09-02 06:22] LABS: TOTAL PROTEIN 5.8 GM/DL (6.4-8.2)
[2021-09-02 06:23] LABS: BILIRUBIN,TOTAL 0.5 MG/DL (0.1-1.0)
[2021-09-02 06:24] LABS: BAND NEUTROPHILS 2 %; EOSINOPHILS % (MANUAL) 1 %; LYMPHOCYTES % (MANUAL) 15 %; MONOCYTES % (MANUAL) 5 %; NEUTROPHILS % (MANUAL) 77 %
[2021-09-02 06:25] LABS: ANISOCYTOSIS SLIGHT; CREATININE SERUM 0.69 MG/DL (0.60-1.30); HYPOCHROMASIA SLIGHT; MICROCYTOSIS SLIGHT; NUCLEATED RED BLOOD CELLS 1; PLATELET CLUMPS OCCASIONAL; POIKILOCYTOSIS SLIGHT; POLYCHROMASIA MODERATE; SPHEROCYTES SLIGHT
[2021-09-02 07:37] VITALS: BP 153/76
[2021-09-02] MEDS: PANTOPRAZOLE 40 MG (PROTONIX) TAB PO SCH (07:58)
[2021-09-02] MEDS: AMIODARONE 200 MG (CORDARONE) TAB PO SCH ×2 (07:58→21:13)
[2021-09-02] MEDS: HYDROcodone/APAP 5 MG/325 MG (LORTAB) TAB PO PRN ×3 (07:59→21:12)
[2021-09-02] MEDS: APIXABAN 5 MG (ELIQUIS) TABLET PO SCH ×2 (07:59→21:13)
[2021-09-02] MEDS: CALCIUM CARB + VIT D 600 MG (CALCARB + D) TAB PO SCH (07:59)
[2021-09-02] MEDS: VITAMIN D3 125 MCG (5,000 UNITS) CAPSULE PO SCH (07:59)
[2021-09-02] MEDS: RT-ALBUTEROL SULF 2.5 MG/3 ML PRE-MIX VIAL INH SCH ×2 (08:04→19:27)
[2021-09-02] MEDS: TIMOLOL MALEATE 0.5% 5 ML (TIMOPTIC) BTL OU SCH ×2 (08:48→21:13)
--- NOTE | 2021-09-02 09:01 | PM&R Progress Note ---
Subjective HPI/CC On Admission Date Seen by Provider: Sep 02, 2021 Time Seen by Provider: 09:00 Subjective/Events-last exam 09/02/21: Patient doing very well WBC 14.7 Imodium ordered for loose stools Right arm IV infiltration improved Participating in therapy 09/01/21: Patient doing really well Tolerating pain with Tylenol only Lortab will be reserved before therapy Bowels are moving Voiding okay Dressing changes appear to be doing well 08/31/2021: Patient doing well Right arm from IV infiltration is sore so alternating between ice and K pad at the bedside Making progress in therapy 08/30/2021: Patient doing really well Working hard with therapy Pain is well controlled Last IV so changed antibiotic to p.o. Stopped last few doses of iron due to no IV access Pain is pretty well controlled Review of Systems Musculoskeletal: arm pain, leg pain Objective Exam Vital Signs Vital Signs Date Time Temp Pulse Resp B/P (MAP) Pulse Ox O2 Delivery O2 Flow Rate FiO2 09/02/21 21:27 Room Air 09/02/21 20:10 36.6 92 16 139/62 (87) 96 09/01/21 18:54 24 Capillary Refill : General Appearance: No Apparent Distress, WD/WN, Anxious, Chronically ill, Other (Fatigued and pale) HEENT: PERRL/EOMI, Normal ENT Inspection, Pharynx Normal Neck: Full Range of Motion, Normal Inspection, Non Tender, Supple, Carotid Bruit Respiratory: Chest Non Tender, Lungs Clear, Normal Breath Sounds, No Accessory Muscle Use, No Respiratory Distress, Decreased Breath Sounds Cardiovascular: Regular Rate, Rhythm, No Edema, No Gallop, No JVD, No Murmur, Normal Peripheral Pulses Gastrointestinal: Normal Bowel Sounds, No Organomegaly, No Pulsatile Mass, Non Tender, Soft Back: Normal Inspection, No CVA Tenderness, No Vertebral Tenderness Extremity: Normal Capillary Refill, Normal Inspection, Normal Range of Motion, Non Tender, No Calf Tenderness, No Pedal Edema Neurologic/Psychiatric: Alert, Oriented x3, No Motor/Sensory Deficits, 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 FIM Transfers Therapy Code Descriptions/Definitions Functional [place] Measure: 0=Not Assessed/NA 4=Minimal Assistance 1=Total Assistance 5=Supervision or Setup 2=Maximal Assistance 6=Modified [place] 3=Moderate Assistance 7=Complete IndependenceSCALE: Activities may be completed with or without assistive devices. 8-Hnntccpinf-cayuywy completes the activity by him/herself with no assistance from a helper. 5-Set-up or Clean-up Assistance-helper sets up or cleans up; patient completes activity. [place] assists only prior to or following the activity. 4-Supervision or Touching Assistance-helper provides verbal cues and/or touching/steadying and/or contact guard assistance as patient completes activity. Assistance may be provided throughout the activity or intermittently. 3-Partial/Moderate Assistance-helper does LESS THAN HALF the effort. [place] lifts, holds or supports trunk or limbs, but provides less than half the effort. 2-Substantial/Maximal Assistance-helper does MORE THAN HALF the effort. [place] lifts or holds trunk or limbs and provides more than half the effort. 8-Mtgglcqjo-fnmgbj does ALL the effort. Patient does none of the effort to complete the activity. Or, the assistance of 2 or more helpers is required for the patient to complete the activity. If activity was not attempted, code reason: 7-Patient Refused. 9-Not Applicable-not attempted and the patient did not perform the activity before the current illness, exacerbation or injury. 10-Not Attempted due to Environmental Limitations-(lack of equipment, weather restraints, etc.). 88-Not Attempted due to Medical Conditions or Safety Concerns. Roll Left to Right (QC): 3 Sit to Lying (QC): 3 Sit to Stand (QC): 2 Chair/Dzj-on-Vzlim Xfer(QC): 3 Car Transfer (QC): 88 Gait Training Does the Patient Walk?: Yes Distance: 15' Walk 10 feet (QC): 3 Walk 50 ft with 2 Turns(QC): 88 Walk 150 ft (QC): 88 Walking 10ft/uneven surface-QC: 88 Gait Persons Needed: 1 Gait Assistive Device: Walker Platform Wheelchair Training Does the Pt Use a Wheelchair?: Yes Distance: 100' Wheel 50 ft with 2 turns (QC): 4 Wheel 150 ft (QC): 88 Type of Wheelchair: Manual Stair Training 1 Step (curb) (QC): 88 4 Steps (QC): 88 12 Steps (QC): 88 Balance Picking up an Object (QC): 88 ADL-Treatment Eating (QC): 5 Oral Hygiene (QC): 5 Shower/Bathe Self (QC): 1 Upper Body Dressing (QC): 5 Lower Body Dressing (QC): 1 On/Off Footwear (QC): 2 Toileting Hygiene (QC): 1 Toilet Transfer (QC): 1 Assessment/Plan Assessment and Plan Assess & Plan/Chief Complaint Assessment: Left hip fracture Left wrist fracture Fall Postop pneumonia New onset atrial fibrillation with rapid ventricular response status post cardioversion unsuccessful and amiodarone drip x48 hours and spontaneously conve rted to normal sinus rhythm Oral anticoagulation for stroke prophylaxis Postop anemia Iron deficiency Hypothyroidism but low TSH placing patient at risk for atrial fibrillation so holding 25 mcg dose Depression situational type with decreased motivation IV infiltration right arm Plan: Monitor labs Iron supplement Oxygen Rehab protocol Cardiology appreciated Telemetry 08/30/2021: Supportive care Pain control Therapy regimen 08/31/2021: Transition to oral antibiotics K pad and ice to right arm 09/01/21: Monitor closely Pain control 09/02/21: Supportive care Kpad to right arm Imodium (1) Hip fracture Status: Acute (2) Pneumonia (3) Anemia due to acute blood loss (4) Iron deficiency (5) Low TSH level (6) Afib (7) HLD (hyperlipidemia) (8) Essential (primary) hypertension (9) Hypothyroidism (10) Wrist fracture Status: Acute (11) Osteoporosis JENIFFER VAZ DO Sep 02, 2021 09:01
[2021-09-02] MEDS: DOCUSATE SODIUM 100 MG (COLACE) CAP PO SCH ×2 (09:20→21:25)
[2021-09-02] MEDS: polyethylene glycoL POWDER 17 GM (MIRALAX) PACK PO SCH ×2 (09:20→21:25)
[2021-09-02] MEDS: SENNA W/DOCUSATE (SENOKOT S) TABLET PO SCH ×2 (09:21→21:25)
--- NOTE | 2021-09-02 11:07 | Occupational Ther Daily Note ---
OT Current Status-Daily Note Subjective Pt alert, sitting in w/c. Pt agrees to therapy. Pt c/o pain, though did not rate. Mental Status/Objective Patient Orientation: Person, Place, Time, Situation Attachments: Other-See Comments (cast L forearm) ADL-Treatment 1st session ([id number]): PT/OT cotreat ([id number]), skills of 2 clinicians required to increase mobility, decrease fall risk and increase B UE/LE strengthening. PT focusing on mobility, transfer while OT ADLs, functional mobility and UE placement during transfers/mobility. Pt agrees to shower. PT ambulated pt to bathroom and assisted with shower transfer. Pt completed shower sitting on shower bench using grabbars and hand held shower. Cleansed upper body, emma area and upper legs, assist with buttocks while sitting and lower legs/feet. Pt dried upper body and donned shirt by self after setup. PT transferred pt out of shower to w/c. Assist given to don lower body clothing while PT stood pt to hike over hips. Assist to complete footwear. 2nd session ([id number]): Took over care from PT in therapy gym. Pt educated on AE for lower body dressing. Pt able to demonstrate understanding of equipment by simulating threaded feet through pant legs with theraband. Pt was able to doff socks with dressing stick and don with sock aide after education. Pt stood using platform FWW and assisted with hiking pants down over hips, assist x1. Pt required mod A for EOB to supine, assist with B LE's and positioning in bed. After therapy, pt lying in bed with call light/phone in reach. All needs met in room. Therapy Code Descriptions/Definitions Functional [place] Measure: 0=Not Assessed/NA 4=Minimal Assistance 1=Total Assistance 5=Supervision or Setup 2=Maximal Assistance 6=Modified [place] 3=Moderate Assistance 7=Complete IndependenceSCALE: Activities may be completed with or without assistive devices. 9-Uzntkboymy-tkiqiex completes the activity by him/herself with no assistance from a helper. 5-Set-up or Clean-up Assistance-helper sets up or cleans up; patient completes activity. [place] assists only prior to or following the activity. 4-Supervision or Touching Assistance-helper provides verbal cues and/or touching /steadying and/or contact guard assistance as patient completes activity. Assistance may be provided throughout the activity or intermittently. 3-Partial/Moderate Assistance-helper does LESS THAN HALF the effort. [place] lifts, holds or supports trunk or limbs, but provides less than half the effort. 2-Substantial/Maximal Assistance-helper does MORE THAN HALF the effort. [place] lifts or holds trunk or limbs and provides more than half the effort. 7-Pthhahppg-jlsocl does ALL the effort. Patient does none of the effort to complete the activity. Or, the assistance of 2 or more helpers is required for the patient to complete the activity. If activity was not attempted, code reason: 7-Patient Refused. 9-Not Applicable-not attempted and the patient did not perform the activity before the current illness, exacerbation or injury. 10-Not Attempted due to Environmental Limitations-(lack of equipment, weather restraints, etc.). 88-Not Attempted due to Medical Conditions or Safety Concerns. Bathing Location: L Arm, R Arm, L Upper Leg, R Upper Leg, Chest, Abdomen, Perineal Area Shower/Bathe Self (QC): 3 (mod A) Upper Body Dressing (QC): 5 Lower Body Dressing (QC): 1 On/Off Footwear: 2 Other Treatment 1st session ([id number]): See PT notes for ambulation progress. After session, pt lying in bed with call light/phone in reach. All needs met in room. 2nd session([id number]): Pt completed medium resistance theraband to increase B UE strength for daily functional tasks. Skilled instruction for correct techni que and modifications due to L UE fracture/cast. Modified exercises due to cast on L UE. B horizontal shldr abd/add. HERNÁNDEZ assisted with R UE elbow flex/ext. Pt tolerated 2 sets 10 reps of each. OT Short Term Goals Short Term Goals Time Frame: Sep 12, 2021 Eatin Oral hygiene: 3 Toileting hygiene: 2 Shower/bathe self: 3 Upper body dressin Lower body dressin Putting on/taking off footwear: 3 OT Jail Goals [employer] Goals Time Frame: Sep 26, 2021 Eating (QC): 6 Oral Hygiene (QC): 5 Toileting Hygiene (QC): 4 Shower/Bathe Self (QC): 4 Upper Body Dressing (QC): 4 Lower Body Dressing (QC): 4 On/Off Footwear (QC): 4 1=Demonstrate adherence to instructed precautions during ADL tasks. 2=Patient will verbalize/demonstrate understanding of assistive devices/modifications for ADL. 3=Patient will improve strength/tolerance for activity to enable patient to perform ADL's. OT Education/Plan Problem List/Assessment Assessment: Decreased Activ Tolerance, Decreased UE Strength, Impaired Bed Mobility, Impaired Funct Balance, Impaired Self-Care Skills Discharge Recommendations Plan/Recommendations: Continue POC Treatment Plan/Plan of Care Patient would benefit from OT for education, treatment and training to promote independence in ADL's, mobility, safety and/or upper extremity function for ADL's. Plan of Care: ADL Retraining, Functional Mobility, Group Exercise/Act as Ind, UE Funct Exercise/Act, W/C Management Training Treatment Duration: Sep 26, 2021 Frequency: At least 5 of 7 days/Wk (IRF) Estimated Hrs Per Day: 1.5 hours per day Agreement: Yes Rehab Potential: Guarded Time/GCodes Start Time: 09:00 (1330) Stop Time: 10:00 (1400) Total Time Billed (hr/min): 90 Billed Treatment Time 1 visit ([id number]) ADL 2 (30 min) FA 2 (30 min) Co-treat with PT [id number] 1 visit([id number]) ADL 1 (20 min) EX 1 (10 min) DALILA HERCULES Sep 02, 2021 11:06
--- NOTE | 2021-09-02 11:27 | Physical Therapy Daily Note ---
PT Daily Note-Current Subjective Patient in WC pre tx, agrees to PT, voices no complaints of pain. Will be co- treating with OT due to poor patient mobility, strength, endurance, severe pain with activity, coordinate UE and LE with activity, safety and reduce risk of falls. Appearance Patient in bed post tx with nurse call, phone, tray, all needs met. Mental Status Patient Orientation: Person, Place, Situation Transfers SCALE: Activities may be completed with or without assistive devices. 3-Brebyfgbzy-pmomimm completes the activity by him/herself with no assistance from a helper. 5-Set-up or Clean-up Assistance-helper sets up or cleans up; patient completes activity. [place] assists only prior to or following the activity. 4-Supervision or Touching Assistance-helper provides verbal cues and/or touching/steadying and/or contact guard assistance as patient completes activity. Assistance may be provided throughout the activity or intermittently. 3-Partial/Moderate Assistance-helper does LESS THAN HALF the effort. [place] lifts, holds or supports trunk or limbs, but provides less than half the effort. 2-Substantial/Maximal Assistance-helper does MORE THAN HALF the effort. [place] lifts or holds trunk or limbs and provides more than half the effort. 1-Tatajfqrb-lqeqlc does ALL the effort. Patient does none of the effort to complete the activity. Or, the assistance of 2 or more helpers is required for the patient to complete the activity. If activity was not attempted, code reason: 7-Patient Refused. 9-Not Applicable-not attempted and the patient did not perform the activity before the current illness, exacerbation or injury. 10-Not Attempted due to Environmental Limitations-(lack of equipment, weather restraints, etc.). 88-Not Attempted due to Medical Conditions or Safety Concerns. Roll Left & Right (QC): 3 Sit to Lying (QC): 3 Sit to Stand (QC): 2 Chair/Aba-wk-Mgcbb Xfer(QC): 3 Patient ambulates to the shower bench in her restroom and sits down, she only has a gown on so she doesn't have to undress much, showers, has to stand to get her bottom, when done she transfers to , stands again to finish dressing and get her hip dressing changed, and then ambulates and then transfers back to bed. Weight Bearing Left Lower Extremity: Left Weight Bearing/Tolerated NWB LUE but can bear weight on elbow Gait Training Distance: 20'x2 Walk 10 feet (QC): 3 Gait Assistive Device: Walker Platform patient is unsteady and needs min assist for balance, she is reluctant to bear weight through her left leg and tries to bear all weight through her arms. Treatments PT performed bed mobility and transfers, ambulation, standing and positioning during bathing and dressing, OT performed bathing, dressing, UE positioning and safety during activity Assessment Current Status: Poor Progress Patient requires max assist to stand, sometimes requires 2 people to stand from lower surfaces. PT Short Term Goals Short Term Goals Time Frame: Sep 05, 2021 Roll Left & Right: 3 Sit to lyin Lying to sitting on side of be: 3 Sit to stand: 3 Chair/fvo-nh-ddkae transfer: 3 Walk 10 feet: 3 PT Halfway Goals Halfway Goals PT Supervising Law Enforcement Analyst Goals Time Frame: Sep 19, 2021 Roll Left & Right (QC): 3 (Moisés) Sit to Lying (QC): 3 (Moisés) Lying-Sitting on Side/Bed(QC): 3 (Moisés) Sit to Stand (QC): 3 (Moisés) Chair/Fti-gb-Mwlbc Xfer(QC): 3 (Moisés) Toilet Transfer (QC): 3 (Moisés) Car Transfer (QC): 3 (Moisés) Does the Patient Walk: Yes Walk 10 feet (QC): 3 (Moisés) Walk 50ft with 2 Turns (QC): 3 (Moisés) Walk 150 ft (QC): 88 Walking 10ft on Uneven Surface: 3 (Moisés) 1 Step (curb) (QC): 3 (Moisés) 4 Steps (QC): 88 12 Steps (QC): 88 Picking up an Object (QC): 88 Wheel 50 feet with 2 turns (QC: 5 Wheel 150 feet: 5 PT Plan Problem List Problem List: Activity Tolerance, Functional Strength, Safety, Balance, Gait, Transfer, Bed Mobility, ROM Treatment/Plan Treatment Plan: Continue Plan of Care Treatment Plan: Bed Mobility, Education, Functional Activity [place], Functional Strength, Group Therapy, Gait, Safety, Therapeutic Exercise, Transfers Treatment Duration: Sep 19, 2021 Frequency: At least 5 of 7 days/Wk (IRF) Estimated Hrs Per Day: 1.5 hours per day Patient and/or Family Agrees t: Yes Safety Risks/Education Patient Education: Gait Training, Transfer Techniques, Correct Positioning, W/C Management, Safety Issues Teaching Recipient: Patient Teaching Methods: Demonstration, Discussion Response to Teaching: Reinforcement Needed Time/GCodes Time In: 0900 Time Out: 1000 Total Billed Treatment Time: 60 Total Billed Treatment 1 visit FA 60' co-treated for 60' LOLLY BOND PT Sep 02, 2021 11:27
--- NOTE | 2021-09-02 13:33 | Physical Therapy Daily Note ---
PT Daily Note-Current Subjective Patient in bed pre tx, agrees to PT, has 3/10 pain in left hip. Appearance Patient in WC in therapy gym post tx, has OT right after PT. Mental Status Patient Orientation: Person, Place, Situation Transfers SCALE: Activities may be completed with or without assistive devices. 8-Ivektlmovb-nlidoxq completes the activity by him/herself with no assistance fr om a helper. 5-Set-up or Clean-up Assistance-helper sets up or cleans up; patient completes activity. [place] assists only prior to or following the activity. 4-Supervision or Touching Assistance-helper provides verbal cues and/or touching/steadying and/or contact guard assistance as patient completes activity. Assistance may be provided throughout the activity or intermittently. 3-Partial/Moderate Assistance-helper does LESS THAN HALF the effort. [place] lifts, holds or supports trunk or limbs, but provides less than half the effort. 2-Substantial/Maximal Assistance-helper does MORE THAN HALF the effort. [place] lifts or holds trunk or limbs and provides more than half the effort. 6-Tdbqnmihz-mksbdl does ALL the effort. Patient does none of the effort to complete the activity. Or, the assistance of 2 or more helpers is required for the patient to complete the activity. If activity was not attempted, code reason: 7-Patient Refused. 9-Not Applicable-not attempted and the patient did not perform the activity before the current illness, exacerbation or injury. 10-Not Attempted due to Environmental Limitations-(lack of equipment, weather restraints, etc.). 88-Not Attempted due to Medical Conditions or Safety Concerns. Roll Left & Right (QC): 3 Lying to Sitting/Side of Bed(Q: 3 Sit to Stand (QC): 3 Chair/Rrc-hx-Hdvoj Xfer(QC): 4 mod assist for supine to sit and for sit to stand Weight Bearing Left Lower Extremity: Left Weight Bearing/Tolerated NWB LUE but can bear weight on elbow Gait Training Distance: 30' Walk 10 feet (QC): 4 Gait Persons Needed: 1 Gait Assistive Device: Walker Platform CGA, much more steady, step-to gait patters with left leading Exercises NuStep Minutes: 15 NuStep Workload: 4 Treatments bed mobility and transfers, ambulation, functional strengthening Assessment Current Status: Fair Progress improved ambulation and sit to stand PT Short Term Goals Short Term Goals Time Frame: Sep 05, 2021 Roll Left & Right: 3 Sit to lyin Lying to sitting on side of be: 3 Sit to stand: 3 Chair/hac-im-hzetk transfer: 3 Walk 10 feet: 3 PT Applied Researcher Goals Applied Researcher Goals PT Applied Researcher Goals Time Frame: Sep 19, 2021 Roll Left & Right (QC): 3 (Moisés) Sit to Lying (QC): 3 (Moisés) Lying-Sitting on Side/Bed(QC): 3 (Moisés) Sit to Stand (QC): 3 (Moisés) Chair/Ths-fa-Kbyia Xfer(QC): 3 (Moisés) Toilet Transfer (QC): 3 (Moisés) Car Transfer (QC): 3 (Moisés) Does the Patient Walk: Yes Walk 10 feet (QC): 3 (Moisés) Walk 50ft with 2 Turns (QC): 3 (Moisés) Walk 150 ft (QC): 88 Walking 10ft on Uneven Surface: 3 (Moisés) 1 Step (curb) (QC): 3 (Moisés) 4 Steps (QC): 88 12 Steps (QC): 88 Picking up an Object (QC): 88 Wheel 50 feet with 2 turns (QC: 5 Wheel 150 feet: 5 PT Plan Problem List Problem List: Activity Tolerance, Functional Strength, Safety, Balance, Gait, Transfer, Bed Mobility, ROM Treatment/Plan Treatment Plan: Continue Plan of Care Treatment Plan: Bed Mobility, Education, Functional Activity Sheyla, Functional Strength, Group Therapy, Gait, Safety, Therapeutic Exercise, Transfers Treatment Duration: Sep 19, 2021 Frequency: At least 5 of 7 days/Wk (IRF) Estimated Hrs Per Day: 1.5 hours per day Patient and/or Family Agrees t: Yes Safety Risks/Education Patient Education: Gait Training, Transfer Techniques, Correct Positioning, Safety Issues Teaching Recipient: Patient Teaching Methods: Demonstration, Discussion Response to Teaching: Reinforcement Needed Time/GCodes Time In: 1300 Time Out: 1330 Total Billed Treatment Time: 30 Total Billed Treatment 1 visit EX 15' FA 15' LOLLY BOND PT Sep 02, 2021 13:33
[2021-09-02] MEDS: ACETAMINOPHEN 325 MG TABLET PO PRN (16:27)
[2021-09-02 20:10] VITALS: BP 139/62
[2021-09-02] MEDS: SIMvastatin 20 MG (ZOCOR) TAB PO SCH (21:12)
[2021-09-02] MEDS: LATANOPROST 0.005% (XALATAN) OPHTH SOLN 2.5 ML OU SCH (21:14)
[2021-09-03] MEDS: HYDROcodone/APAP 5 MG/325 MG (LORTAB) TAB PO PRN ×4 (04:21→18:27)
[2021-09-03] MEDS: KCL 10 MEQ TAB (MICRO K) PO SCH (06:51)
[2021-09-03] MEDS: CEFDINIR 300 MG (OMNICEF) CAP PO SCH (06:51)
[2021-09-03] MEDS: CYANOCOBALAMIN 1,000 MCG (VITAMIN B-12) TABLET PO SCH (06:51)
[2021-09-03 07:36] VITALS: BP 155/71
[2021-09-03] MEDS: RT-ALBUTEROL SULF 2.5 MG/3 ML PRE-MIX VIAL INH SCH ×2 (08:01→20:07)
[2021-09-03] MEDS: CALCIUM CARB + VIT D 600 MG (CALCARB + D) TAB PO SCH (08:22)
[2021-09-03] MEDS: PANTOPRAZOLE 40 MG (PROTONIX) TAB PO SCH (08:22)
[2021-09-03] MEDS: AMIODARONE 200 MG (CORDARONE) TAB PO SCH ×2 (08:22→20:47)
[2021-09-03] MEDS: VITAMIN D3 125 MCG (5,000 UNITS) CAPSULE PO SCH (08:22)
[2021-09-03] MEDS: APIXABAN 5 MG (ELIQUIS) TABLET PO SCH ×2 (08:23→20:47)
[2021-09-03] MEDS: TIMOLOL MALEATE 0.5% 5 ML (TIMOPTIC) BTL OU SCH ×2 (08:26→20:49)
[2021-09-03] MEDS: ONDANSETRON 4 MG (ZOFRAN) ORAL DISSOLVE TAB PO PRN (08:42)
[2021-09-03] MEDS: SENNA W/DOCUSATE (SENOKOT S) TABLET PO SCH ×2 (09:00→20:48)
[2021-09-03] MEDS: DOCUSATE SODIUM 100 MG (COLACE) CAP PO SCH ×2 (09:00→20:48)
[2021-09-03] MEDS: polyethylene glycoL POWDER 17 GM (MIRALAX) PACK PO SCH ×2 (09:00→20:48)
--- NOTE | 2021-09-03 09:08 | PM&R Progress Note ---
Subjective HPI/CC On Admission Date Seen by Provider: Sep 03, 2021 Time Seen by Provider: 09:15 Subjective/Events-last exam 09/03/21: Patient doing well Right arm improved from IV infiltration Transferring better Wants to go home soon Omnicef completed BM regular 09/02/21: Patient doing very well WBC 14.7 Imodium ordered for loose stools Right arm IV infiltration improved Participating in therapy 09/01/21: Patient doing really well Tolerating pain with Tylenol only Lortab will be reserved before therapy Bowels are moving Voiding okay Dressing changes appear to be doing well 08/31/2021: Patient doing well Right arm from IV infiltration is sore so alternating between ice and K pad at the bedside Making progress in therapy 08/30/2021: Patient doing really well Working hard with therapy Pain is well controlled Last IV so changed antibiotic to p.o. Stopped last few doses of iron due to no IV access Pain is pretty well controlled Review of Systems General: Fatigue, Malaise Pulmonary: Dyspnea Musculoskeletal: arm pain, leg pain Objective Exam Vital Signs Vital Signs Date Time Temp Pulse Resp B/P (MAP) Pulse Ox O2 Delivery O2 Flow Rate FiO2 09/03/21 21:00 Room Air 09/03/21 20:27 36.3 90 18 136/63 (87) 96 09/01/21 18:54 24 Capillary Refill : General Appearance: No Apparent Distress, WD/WN, Anxious, Chronically ill, Other (Fatigued and pale) HEENT: PERRL/EOMI, Normal ENT Inspection, Pharynx Normal Neck: Full Range of Motion, Normal Inspection, Non Tender, Supple, Carotid Bruit Respiratory: Chest Non Tender, Lungs Clear, Normal Breath Sounds, No Accessory Muscle Use, No Respiratory Distress, Decreased Breath Sounds Cardiovascular: Regular Rate, Rhythm, No Edema, No Gallop, No JVD, No Murmur, Normal Peripheral Pulses Gastrointestinal: Normal Bowel Sounds, No Organomegaly, No Pulsatile Mass, Non Tender, Soft Back: Normal Inspection, No CVA Tenderness, No Vertebral Tenderness Extremity: Normal Capillary Refill, Normal Inspection, Normal Range of Motion, Non Tender, No Calf Tenderness, No Pedal Edema Neurologic/Psychiatric: Alert, Oriented x3, No Motor/Sensory Deficits, traffic recorder II- XII Norm as 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 FIM Transfers Therapy Code Descriptions/Definitions Functional [place] Measure: 0=Not Assessed/NA 4=Minimal Assistance 1=Total Assistance 5=Supervision or Setup 2=Maximal Assistance 6=Modified [place] 3=Moderate Assistance 7=Complete IndependenceSCALE: Activities may be completed with or without assistive devices. 6-Lcqgisexhp-kqowbds completes the activity by him/herself with no assistance from a helper. 5-Set-up or Clean-up Assistance-helper sets up or cleans up; patient completes activity. [place] assists only prior to or following the activity. 4-Supervision or Touching Assistance-helper provides verbal cues and/or touching/steadying and/or contact guard assistance as patient completes activity. Assistance may be provided throughout the activity or intermittently. 3-Partial/Moderate Assistance-helper does LESS THAN HALF the effort. [place] lifts, holds or supports trunk or limbs, but provides less than half the effort. 2-Substantial/Maximal Assistance-helper does MORE THAN HALF the effort. [place] lifts or holds trunk or limbs and provides more than half the effort. 8-Ayuuewkzr-agnxub does ALL the effort. Patient does none of the effort to complete the activity. Or, the assistance of 2 or more helpers is required for the patient to complete the activity. If activity was not attempted, code reason: 7-Patient Refused. 9-Not Applicable-not attempted and the patient did not perform the activity before the current illness, exacerbation or injury. 10-Not Attempted due to Environmental Limitations-(lack of equipment, weather restraints, etc.). 88-Not Attempted due to Medical Conditions or Safety Concerns. Roll Left to Right (QC): 3 Sit to Lying (QC): 3 Sit to Stand (QC): 3 Chair/Ksb-wy-Fyguc Xfer(QC): 4 Car Transfer (QC): 88 Gait Training Does the Patient Walk?: Yes Distance: 30' Walk 10 feet (QC): 4 Walk 50 ft with 2 Turns(QC): 88 Walk 150 ft (QC): 88 Walking 10ft/uneven surface-QC: 88 Gait Persons Needed: 1 Gait Assistive Device: Walker Platform Wheelchair Training Does the Pt Use a Wheelchair?: Yes Distance: 100' Wheel 50 ft with 2 turns (QC): 4 Wheel 150 ft (QC): 88 Type of Wheelchair: Manual Stair Training 1 Step (curb) (QC): 88 4 Steps (QC): 88 12 Steps (QC): 88 Balance Picking up an Object (QC): 88 ADL-Treatment Eating (QC): 5 Oral Hygiene (QC): 5 Bathing Location: L Arm, R Arm, L Upper Leg, R Upper Leg, Chest, Abdomen, Perineal Area Shower/Bathe Self (QC): 3 (mod A) Upper Body Dressing (QC): 5 Lower Body Dressing (QC): 1 On/Off Footwear (QC): 2 Toileting Hygiene (QC): 1 Toilet Transfer (QC): 1 Assessment/Plan Assessment and Plan Assess & Plan/Chief Complaint Assessment: Left hip fracture Left wrist fracture Fall Postop pneumonia New onset atrial fibrillation with rapid ventricular response status post cardioversion unsuccessful and amiodarone drip x48 hours and spontaneously converted to normal sinus rhythm Oral anticoagulation for stroke prophylaxis Postop anemia Iron deficiency Hypothyroidism but low TSH placing patient at risk for atrial fibrillation so holding 25 mcg dose Depression situational type with decreased motivation IV infiltration right arm Plan: Monitor labs Iron supplement Oxygen Rehab protocol Cardiology appreciated Telemetry 08/30/2021: Supportive care Pain control Therapy regimen 08/31/2021: Transition to oral antibiotics K pad and ice to right arm 09/01/21: Monitor closely Pain control 09/02/21: Supportive care Kpad to right arm Imodium 09/03/21: Improved status Increase independence (1) Hip fracture Status: Acute (2) Pneumonia (3) Anemia due to acute blood loss (4) Iron deficiency (5) Low TSH level (6) Afib (7) HLD (hyperlipidemia) (8) Essential (primary) hypertension (9) Hypothyroidism (10) Wrist fracture Status: Acute (11) Osteoporosis JENIFFER VAZ DO Sep 03, 2021 09:08
--- NOTE | 2021-09-03 09:58 | Physical Therapy Daily Note ---
PT Daily Note-Current Subjective Pt in room upon arrival. Pt agrees to PT/OT co-treat. Pain Location: Left Location Body Site: Hip Pain Description: Ache Comment: Pt reports but doesn't rate. Mental Status Patient Orientation: Person, Place, Situation Transfers SCALE: Activities may be completed with or without assistive devices. 2-Jlokpppyjz-jylqiou completes the activity by him/herself with no assistance from a helper. 5-Set-up or Clean-up Assistance-helper sets up or cleans up; patient completes activity. [place] assists only prior to or following the activity. 4-Supervision or Touching Assistance-helper provides verbal cues and/or touching/steadying and/or contact guard assistance as patient completes activity. Assistance may be provided throughout the activity or intermittently. 3-Partial/Moderate Assistance-helper does LESS THAN HALF the effort. [place] lifts, holds or supports trunk or limbs, but provides less than half the effort. 2-Substantial/Maximal Assistance-helper does MORE THAN HALF the effort. [place] lifts or holds trunk or limbs and provides more than half the effort. 9-Bfoxawjwj-bawqat does ALL the effort. Patient does none of the effort to complete the activity. Or, the assistance of 2 or more helpers is required for the patient to complete the activity. If activity was not attempted, code reason: 7-Patient Refused. 9-Not Applicable-not attempted and the patient did not perform the activity before the current illness, exacerbation or injury. 10-Not Attempted due to Environmental Limitations-(lack of equipment, weather restraints, etc.). 88-Not Attempted due to Medical Conditions or Safety Concerns. Sit to Lying (QC): 3 Lying to Sitting/Side of Bed(Q: 3 Sit to Stand (QC): 4 Weight Bearing Left Lower Extremity: Left Weight Bearing/Tolerated NWB LUE but can bear weight on elbow Gait Training Does the Patient Walk?: Yes Distance: 25' Walk 10 feet (QC): 4 Gait Persons Needed: 1 Gait Assistive Device: Walker Platform Wheelchair Training Does the Pt Use a Wheelchair?: Yes Type of Wheelchair: Manual Exercises Supine Ex: Ankle pumps, Short Arc Quads Supine Reps: 15 Seated Therapy Exercises: Long arc quads, Hip flexion, Glut set Seated Reps: 15 Treatments PT/OT cotreat ([id number]), skills of 2 clinicians required to increase mobility, decrease fall risk and increase B UE/LE strengthening. PT focusing on mobility, transfer while OT ADLs, functional mobility and UE placement during transfers/mobility. Pt participated in functional mobility task using FWW to ambulate aprox. 25 feet to therapy room before sitting in w/c. Pt educated on leg hammer repairer, then requires min A x2 to go from EOB to supine using leg hammer repairer. Pt showed diminished activity tolerance during activity. Pt participated in therapeutic exercise supine on therapy bed. Pt engaged in shoulder abd/add 20 x and shoulder flexion/extension 20 x using dowel edmundo. Pt required Min A x2 for supine-sit, then engaged in isometric B shldr internal rotation exercise to increase UB strength for ADLs. Patient returned to room using w/c. Pt transferred to bed requiring Min A x2. Pt left with call button, phone, and bedside table within reach. Assessment Current Status: Good Progress Pt is improving with transfers & mobility. Pt fatigues easily and will continue to work hard with therapy staff to push self for progress. PT Short Term Goals Short Term Goals Time Frame: Sep 05, 2021 Roll Left & Right: 3 Sit to lyin Lying to sitting on side of be: 3 Sit to stand: 3 Chair/efq-fw-culfg transfer: 3 Walk 10 feet: 3 PT Tax Examining Technician Goals [facility] Goals PT [facility] Goals Time Frame: Sep 19, 2021 Roll Left & Right (QC): 3 (Moisés) Sit to Lying (QC): 3 (Moisés) Lying-Sitting on Side/Bed(QC): 3 (Moisés) Sit to Stand (QC): 3 (Moisés) Chair/Rlh-ji-Xmizp Xfer(QC): 3 (Moisés) Toilet Transfer (QC): 3 (Moisés) Car Transfer (QC): 3 (Moisés) Does the Patient Walk: Yes Walk 10 feet (QC): 3 (Moisés) Walk 50ft with 2 Turns (QC): 3 (Moisés) Walk 150 ft (QC): 88 Walking 10ft on Uneven Surface: 3 (Moisés) 1 Step (curb) (QC): 3 (Moisés) 4 Steps (QC): 88 12 Steps (QC): 88 Picking up an Object (QC): 88 Wheel 50 feet with 2 turns (QC: 5 Wheel 150 feet: 5 PT Plan Problem List Problem List: Activity Tolerance, Functional Strength, Gait, Transfer Treatment/Plan Treatment Plan: Continue Plan of Care Treatment Plan: Bed Mobility, Education, Functional Activity Sheyla, Functional Strength, Group Therapy, Gait, Safety, Therapeutic Exercise, Transfers Treatment Duration: Sep 19, 2021 Frequency: At least 5 of 7 days/Wk (IRF) Estimated Hrs Per Day: 1.5 hours per day Patient and/or Family Agrees t: Yes Safety Risks/Education Patient Education: Gait Training, Transfer Techniques, Correct Positioning, Safety Issues Teaching Recipient: Patient Teaching Methods: Discussion Response to Teaching: Verbalize Understanding Time/GCodes Time In: 900 Time Out: 1000 Total Billed Treatment Time: 60 Total Billed Treatment Co-treat w/Ot for 60m (900-1000) 1, GT (15m), FA (15m) & EX x2 (30m) BARTOLOME TORRES FOOD PREPARATION WORKER Sep 03, 2021 09:58
--- NOTE | 2021-09-03 10:06 | Occupational Ther Daily Note ---
OT Current Status-Daily Note Subjective Pt laying supine. Pt complained of nausea. Nurse notified. Pt agreed to therapy. Mental Status/Objective Patient Orientation: Person, Place, Time, Situation Attachments: Other-See Comments (cast L forearm) ADL-Treatment Patient supine-sit EOB with HOB raised and CGA. SPT using FWW to w/c from EOB. Pt used senior tax analyst to thread pants over feet with verbal cues. Pt demonstrated fair return on instructions with Min A to hike pants over hips while standing using FWW to stabilize. Pt educated on sock aid to don socks, demonstrated fair return with setup. Pt doffed nightgown then donned brassiere with Min A to fasten back, donned shirt with set up. Pt completed oral care while seated in w/c at sink and completed grooming sinkside with supervision. Therapy Code Descriptions/Definitions Functional Story Measure: 0=Not Assessed/NA 4=Minimal Assistance 1=Total Assistance 5=Supervision or Setup 2=Maximal Assistance 6=Modified [place] 3=Moderate Assistance 7=Complete IndependenceSCALE: Activities may be completed with or without assistive devices. 5-Ygvsysvlez-ftxaaga completes the activity by him/herself with no assistance from a helper. 5-Set-up or Clean-up Assistance-helper sets up or cleans up; patient completes activity. [place] assists only prior to or following the activity. 4-Supervision or Touching Assistance-helper provides verbal cues and/or touching/steadying and/or contact guard assistance as patient completes activity. Assistance may be provided throughout the activity or intermittently. 3-Partial/Moderate Assistance-helper does LESS THAN HALF the effort. [place] lifts, holds or supports trunk or limbs, but provides less than half the effort. 2-Substantial/Maximal Assistance-helper does MORE THAN HALF the effort. [place] lifts or holds trunk or limbs and provides more than half the effort. 9-Gqvhbwlib-ggqinn does ALL the effort. Patient does none of the effort to complete the activity. Or, the assistance of 2 or more helpers is required for the patient to complete the activity. If activity was not attempted, code reason: 7-Patient Refused. 9-Not Applicable-not attempted and the patient did not perform the activity be fore the current illness, exacerbation or injury. 10-Not Attempted due to Environmental Limitations-(lack of equipment, weather restraints, etc.). 88-Not Attempted due to Medical Conditions or Safety Concerns. Oral Hygiene (QC): 4 (Supervision) Upper Body Dressing (QC): 5 Lower Body Dressing (QC): 3 (Min A) On/Off Footwear: 5 Other Treatment PT/OT cotreat ([id number]), skills of 2 clinicians required to increase mobility, decrease fall risk and increase B UE/LE strengthening. PT focusing on mobility, transfer while OT ADLs, functional mobility and UE placement during transfers/mobility. Pt participated in functional mobility task using FWW to ambulate aprox. 25 feet to therapy room before sitting in w/c. Pt educated on leg artist model, then requires min A x2 to go from EOB to supine using leg artist model. Pt showed diminished activity tolerance during activity. Pt participated in therapeutic exercise supine on therapy bed. Pt engaged in shoulder abd/add 20 x and shoulder flexion/extension 20 x using dowel edmundo. Pt required Min A x2 for supine-sit, then engaged in isometric B shldr internal rotation exercise to increase UB strength for ADLs. Patient returned to room using w/c. Pt transferred to bed requiring Min A x2. Pt left with call button, phone, and bedside table within reach. Education OT Patient Education: Transfer techniques, Use of adapted equipment Teaching Recipient: Patient Teaching Methods: Demonstration, Discussion Response to Teaching: Verbalize Understanding, Return Demonstration, Reinforcement Needed OT Short Term Goals Short Term Goals Time Frame: Sep 12, 2021 Eatin Oral hygiene: 3 Toileting hygiene: 2 Shower/bathe self: 3 Upper body dressin Lower body dressin Putting on/taking off footwear: 3 OT Designated Broker Goals Longterm Goals Time Frame: Sep 26, 2021 Eating (QC): 6 Oral Hygiene (QC): 5 Toileting Hygiene (QC): 4 Shower/Bathe Self (QC): 4 Upper Body Dressing (QC): 4 Lower Body Dressing (QC): 4 On/Off Footwear (QC): 4 1=Demonstrate adherence to instructed precautions during ADL tasks. 2=Patient will verbalize/demonstrate understanding of assistive devices/modifications for ADL. 3=Patient will improve strength/tolerance for activity to enable patient to perform ADL's. OT Education/Plan Problem List/Assessment Assessment: Decreased Activ Tolerance, Decreased UE Strength, Impaired Coordination, Impaired Funct Balance, Impaired Self-Care Skills, Restricted Fun ct UE ROM Discharge Recommendations Plan/Recommendations: Continue POC Treatment Plan/Plan of Care Patient would benefit from OT for education, treatment and training to promote independence in ADL's, mobility, safety and/or upper extremity function for ADL's. Plan of Care: ADL Retraining, Functional Mobility, Group Exercise/Act as Ind, UE Funct Exercise/Act, W/C Management Training Treatment Duration: Sep 26, 2021 Frequency: At least 5 of 7 days/Wk (IRF) Estimated Hrs Per Day: 1.5 hours per day Agreement: Yes Rehab Potential: Guarded Time/GCodes Start Time: 08:30 Stop Time: 10:00 Total Time Billed (hr/min): 90 Billed Treatment Time 1 visit-ADL 3 (45 min) EX 2 (30 min) FA 1 (15 min), Co-treat with PT 0900- 1000, individual [id number] DALILA HERCULES Sep 03, 2021 10:06
--- NOTE | 2021-09-03 12:24 | ST Cognitive Linguistic Eval ---
Speech Evaluation-General Medical Diagnosis L hip fx, s/p IM nail, A-fib with RVR Onset Date: Aug 24, 2021 Medical History Pertinent Medical History: HTN, Hypothroidism Reviewed History: Yes Social History Current Living Status: Spouse Speech PLF-Current Status Language Eval: Auditory Comprehends Simple Yes/No Ques: Functional Indent/Objects Multiple [place]ae[place]: Functional Ident/Pics in Multiple Bae[place]: Functional Follows 1-Step Commands: Functional Follows Complex Directions: Functional Follows General Conversations: Functional Language Evaluation: Reading Comprehends Single Nouns: Functional Follows Simple Written Direct: Functional Comprehends Multiple Sentences: Functional Language Evaluation: Writing Copies/Traces: Functional Writes to Simple Dictation: Functional Writes Personal Information: Functional Writes Short Phrases: Functional Writes Detailed Sent/Paragraph: Functional Objective Formal/Standardized Tests [facility] Mental Status ([facility]) exam was completed. Results UMS result: . Pt reports no changes with memory or thinking since hospitalization. She states she has no questions or concerns at this time. Impression According to the [facility] exam the pt presents with normal cognition for daily activities. No speech therapy warranted at this time. Speech Patient Assess Expression of Ideas/Wants: Expression (4) (without difficulty and with) Understanding Verbal Content: Understands (4) (Clear comprehension without) Brief Interview-Mental Status: Yes (*Continue to Repetition of) Repetition of Three Words: Three (3) Temporal Orientation: Year: Correct (3) Temporal Orientation: Month: Accurate within 5 days(2) Temporal Orientation: Day: Correct (1) Recall : Wear to say "Sock": Yes, no cue required (2) Recall : Color: Yes, no cue required (2) Recall : Bed: Yes, no cue required (2) Memory/Recall Ability: Current season, That he or she is in a hsp/hsp unit Speech-Plan Treatment Plan Speech Therapy Treatment Plan: Discontinue ST Treatment Duration: Aug 30, 2021 Frequency: Modified Program (IRF) Estimated Hrs Per Day: Other Rehab Potential: Fair Time Speech Therapy Time In: 10:00 Speech Therapy Time Out: 10:30 Billed Treatment Time 1, COGN TEST 30 MINS MILTON REES Sep 03, 2021 12:24
[2021-09-03 20:27] VITALS: BP 136/63
[2021-09-03] MEDS: SIMvastatin 20 MG (ZOCOR) TAB PO SCH (20:46)
[2021-09-03] MEDS: LATANOPROST 0.005% (XALATAN) OPHTH SOLN 2.5 ML OU SCH (20:49)
[2021-09-04] MEDS: ACETAMINOPHEN 325 MG TABLET PO PRN ×3 (04:59→23:30)
[2021-09-04] MEDS: KCL 10 MEQ TAB (MICRO K) PO SCH (06:40)
[2021-09-04] MEDS: CYANOCOBALAMIN 1,000 MCG (VITAMIN B-12) TABLET PO SCH (06:40)
[2021-09-04 07:41] VITALS: BP 148/67
[2021-09-04] MEDS: PANTOPRAZOLE 40 MG (PROTONIX) TAB PO SCH (08:26)
[2021-09-04] MEDS: AMIODARONE 200 MG (CORDARONE) TAB PO SCH ×2 (08:26→21:05)
[2021-09-04] MEDS: VITAMIN D3 125 MCG (5,000 UNITS) CAPSULE PO SCH (08:26)
[2021-09-04] MEDS: HYDROcodone/APAP 5 MG/325 MG (LORTAB) TAB PO PRN ×2 (08:27→12:45)
[2021-09-04] MEDS: APIXABAN 5 MG (ELIQUIS) TABLET PO SCH ×2 (08:27→21:05)
[2021-09-04] MEDS: CALCIUM CARB + VIT D 600 MG (CALCARB + D) TAB PO SCH (08:27)
[2021-09-04] MEDS: polyethylene glycoL POWDER 17 GM (MIRALAX) PACK PO SCH ×2 (08:28→21:00)
[2021-09-04] MEDS: DOCUSATE SODIUM 100 MG (COLACE) CAP PO SCH ×2 (08:28→21:05)
[2021-09-04] MEDS: SENNA W/DOCUSATE (SENOKOT S) TABLET PO SCH ×2 (08:28→21:05)
[2021-09-04] MEDS: TIMOLOL MALEATE 0.5% 5 ML (TIMOPTIC) BTL OU SCH ×2 (08:29→21:11)
--- NOTE | 2021-09-04 09:04 | PM&R Progress Note ---
Subjective HPI/CC On Admission Date Seen by Provider: Sep 04, 2021 Time Seen by Provider: 09:10 Subjective/Events-last exam 09/04/2021: Patient much improved Bowels moving Pain improved Transfers are better Motivated to go home 09/03/21: Patient doing well Right arm improved from IV infiltration Transferring better Wants to go home soon Omnicef completed BM regular 09/02/21: Patient doing very well WBC 14.7 Imodium ordered for loose stools Right arm IV infiltration improved Participating in therapy 09/01/21: Patient doing really well Tolerating pain with Tylenol only Lortab will be reserved before therapy Bowels are moving Voiding okay Dressing changes appear to be doing well 08/31/2021: Patient doing well Right arm from IV infiltration is sore so alternating between ice and K pad at the bedside Making progress in therapy 08/30/2021: Patient doing really well Working hard with therapy Pain is well controlled Last IV so changed antibiotic to p.o. Stopped last few doses of iron due to no IV access Pain is pretty well controlled Review of Systems General: Fatigue, Malaise Neurological: Weakness Objective Exam Vital Signs Vital Signs Date Time Temp Pulse Resp B/P (MAP) Pulse Ox O2 Delivery O2 Flow Rate FiO2 09/04/21 20:52 96 Room Air 09/04/21 20:00 37.2 79 20 136/63 (87) 09/01/21 18:54 24 Capillary Refill : General Appearance: No Apparent Distress, WD/WN, Anxious, Chronically ill, Other (Fatigued and pale) HEENT: PERRL/EOMI, Normal ENT Inspection, Pharynx Normal Neck: Full Range of Motion, Normal Inspection, Non Tender, Supple, Carotid Bruit Respiratory: Chest Non Tender, Lungs Clear, Normal Breath Sounds, No Accessory Muscle Use, No Respiratory Distress, Decreased Breath Sounds Cardiovascular: Regular Rate, Rhythm, No Edema, No Gallop, No JVD, No Murmur, Normal Peripheral Pulses Gastrointestinal: Normal Bowel Sounds, No Organomegaly, No Pulsatile Mass, Non Tender, Soft Back: Normal Inspection, No CVA Tenderness, No Vertebral Tenderness Extremity: Normal Capillary Refill, Normal Inspection, Normal Range of Motion, Non Tender, No Calf Tenderness, No Pedal Edema Neurologic/Psychiatric: Alert, Oriented x3, No Motor/Sensory Deficits, urgent care nurse practitioner II- XII Norm as 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 FIM Transfers Therapy Code Descriptions/Definitions Functional [place] Measure: 0=Not Assessed/NA 4=Minimal Assistance 1=Total Assistance 5=Supervision or Setup 2=Maximal Assistance 6=Modified [place] 3=Moderate Assistance 7=Complete IndependenceSCALE: Activities may be completed with or without assistive devices. 5-Tztwixvyrn-tthmzvs completes the activity by him/herself with no assistance from a helper. 5-Set-up or Clean-up Assistance-helper sets up or cleans up; patient completes activity. [place] assists only prior to or following the activity. 4-Supervision or Touching Assistance-helper provides verbal cues and/or touching/steadying and/or contact guard assistance as patient completes activity. Assistance may be provided throughout the activity or intermittently. 3-Partial/Moderate Assistance-helper does LESS THAN HALF the effort. [place] lifts, holds or supports trunk or limbs, but provides less than half the effort. 2-Substantial/Maximal Assistance-helper does MORE THAN HALF the effort. [place] lifts or holds trunk or limbs and provides more than half the effort. 7-Wrtlqblmx-cbimyb does ALL the effort. Patient does none of the effort to complete the activity. Or, the assistance of 2 or more helpers is required for the patient to complete the activity. If activity was not attempted, code reason: 7-Patient Refused. 9-Not Applicable-not attempted and the patient did not perform the activity before the current illness, exacerbation or injury. 10-Not Attempted due to Environmental Limitations-(lack of equipment, weather restraints, etc.). 88-Not Attempted due to Medical Conditions or Safety Concerns. Roll Left to Right (QC): 3 Sit to Lying (QC): 3 Sit to Stand (QC): 4 Chair/Lqz-fv-Aqkpp Xfer(QC): 4 Car Transfer (QC): 88 Gait Training Does the Patient Walk?: Yes Distance: 25' Walk 10 feet (QC): 4 Walk 50 ft with 2 Turns(QC): 88 Walk 150 ft (QC): 88 Walking 10ft/uneven surface-QC: 88 Gait Persons Needed: 1 Gait Assistive Device: Walker Platform Wheelchair Training Does the Pt Use a Wheelchair?: Yes Distance: 100' Wheel 50 ft with 2 turns (QC): 4 Wheel 150 ft (QC): 88 Type of Wheelchair: Manual Stair Training 1 Step (curb) (QC): 88 4 Steps (QC): 88 12 Steps (QC): 88 Balance Picking up an Object (QC): 88 ADL-Treatment Eating (QC): 5 Oral Hygiene (QC): 4 (Supervision) Bathing Location: L Arm, R Arm, L Upper Leg, R Upper Leg, Chest, Abdomen, Perineal Area Shower/Bathe Self (QC): 3 (mod A) Upper Body Dressing (QC): 5 Lower Body Dressing (QC): 3 (Min A) On/Off Footwear (QC): 5 Toileting Hygiene (QC): 1 Toilet Transfer (QC): 1 Assessment/Plan Assessment and Plan Assess & Plan/Chief Complaint Assessment: Left hip fracture Left wrist fracture Fall Postop pneumonia New onset atrial fibrillation with rapid ventricular response status post cardioversion unsuccessful and amiodarone drip x48 hours and spontaneously converted to normal sinus rhythm Oral anticoagulation for stroke prophylaxis Postop anemia Iron deficiency Hypothyroidism but low TSH placing patient at risk for atrial fibrillation so holding 25 mcg dose Depression situational type with decreased motivation IV infiltration right arm Plan: Monitor labs Iron supplement Oxygen Rehab protocol Cardiology appreciated Telemetry 08/30/2021: Supportive care Pain control Therapy regimen 08/31/2021: Transition to oral antibiotics K pad and ice to right arm 09/01/21: Monitor closely Pain control 09/02/21: Supportive care Kpad to right arm Imodium 09/03/21: Improved status Increase independence 09/04/2021: Continue pain control Aggressive therapy (1) Hip fracture Status: Acute (2) Pneumonia (3) Anemia due to acute blood loss (4) Iron deficiency (5) Low TSH level (6) Afib (7) HLD (hyperlipidemia) (8) Essential (primary) hypertension (9) Hypothyroidism (10) Wrist fracture Status: Acute (11) Osteoporosis JENIFFER VAZ DO Sep 04, 2021 09:04
--- NOTE | 2021-09-04 09:58 | Physical Therapy Daily Note ---
PT Daily Note-Current Subjective Pt in shower upon arrival. Pt agrees to PT/OT co-treat. Mental Status Patient Orientation: Person, Place, Time, Situation Transfers SCALE: Activities may be completed with or without assistive devices. 8-Rhputowqtn-difhzna completes the activity by him/herself with no assistance from a helper. 5-Set-up or Clean-up Assistance-helper sets up or cleans up; patient completes activity. [place] assists only prior to or following the activity. 4-Supervision or Touching Assistance-helper provides verbal cues and/or touching/steadying and/or contact guard assistance as patient completes activity. Assistance may be provided throughout the activity or intermittently. 3-Partial/Moderate Assistance-helper does LESS THAN HALF the effort. [place] lifts, holds or supports trunk or limbs, but provides less than half the effort. 2-Substantial/Maximal Assistance-helper does MORE THAN HALF the effort. [place] lifts or holds trunk or limbs and provides more than half the effort. 7-Njzyskskd-rhvwty does ALL the effort. Patient does none of the effort to complete the activity. Or, the assistance of 2 or more helpers is required for the patient to complete the activity. If activity was not attempted, code reason: 7-Patient Refused. 9-Not Applicable-not attempted and the patient did not perform the activity before the current illness, exacerbation or injury. 10-Not Attempted due to Environmental Limitations-(lack of equipment, weather restraints, etc.). 88-Not Attempted due to Medical Conditions or Safety Concerns. Sit to Stand (QC): 3 Weight Bearing Left Lower Extremity: Left Weight Bearing/Tolerated NWB LUE but can bear weight on elbow Gait Training Does the Patient Walk?: Yes Distance: 125' Walk 10 feet (QC): 4 Walk 50 ft with 2 Turns(QC): 4 Gait Persons Needed: 1 Gait Assistive Device: Walker Platform Wheelchair Training Does the Pt Use a Wheelchair?: Yes Wheel 50 ft with 2 turns (QC): 4 Wheel 150 ft (QC): 4 Treatments PT/OT co-treat with pt ([id number]), 2 clinicians required for skilled treatment to decrease fall risk, increase mobility and activity tolerance during daily functional tasks. PT focusing on transfers, standing, w/c mobility and ambulation while OT focusing on functional mobility, B UE placement during mobility and ADLs. Pt ambulated to therapy gym using platform FWW with CGA. Pt then propelled w/c to [facility] to focus on standing tolerance while completing fine motor strengthening task. Pt tolerated well. After therapy, pt sitting in w/c in room with call light/phone in reach. All needs met in room. present in room. Assessment Current Status: Good Progress Pt fatigues easily and needs RB to recover. PT Short Term Goals Short Term Goals Time Frame: Sep 05, 2021 Roll Left & Right: 3 Sit to lyin Lying to sitting on side of be: 3 Sit to stand: 3 Chair/txm-wi-hhcnl transfer: 3 Walk 10 feet: 3 PT Penitentiary Goals [facility]itentiary Goals PT Chefs Goals Time Frame: Sep 19, 2021 Roll Left & Right (QC): 3 (Moisés) Sit to Lying (QC): 3 (Moisés) Lying-Sitting on Side/Bed(QC): 3 (Moisés) Sit to Stand (QC): 3 (Moisés) Chair/Mgg-sz-Ndfxg Xfer(QC): 3 (Moisés) Toilet Transfer (QC): 3 (Moisés) Car Transfer (QC): 3 (Moisés) Does the Patient Walk: Yes Walk 10 feet (QC): 3 (Moisés) Walk 50ft with 2 Turns (QC): 3 (Moisés) Walk 150 ft (QC): 88 Walking 10ft on Uneven Surface: 3 (Moisés) 1 Step (curb) (QC): 3 (Moisés) 4 Steps (QC): 88 12 Steps (QC): 88 Picking up an Object (QC): 88 Wheel 50 feet with 2 turns (QC: 5 Wheel 150 feet: 5 PT Plan Problem List Problem List: Activity Tolerance, Functional Strength, Gait Treatment/Plan Treatment Plan: Continue Plan of Care Treatment Plan: Bed Mobility, Education, Functional Activity Sheyal, Functional Strength, Group Therapy, Gait, Safety, Therapeutic Exercise, Transfers Treatment Duration: Sep 19, 2021 Frequency: At least 5 of 7 days/Wk (IRF) Estimated Hrs Per Day: 1.5 hours per day Patient and/or Family Agrees t: Yes Safety Risks/Education Patient Education: Gait Training, Transfer Techniques, Correct Positioning, W/C Management, Safety Issues Teaching Recipient: Patient Teaching Methods: Discussion Response to Teaching: Verbalize Understanding Time/GCodes Time In: 900 Time Out: 1000 Total Billed Treatment Time: 60 Total Billed Treatment Co-treat w/OT for 60m (900-1000) 1, FA x2 (30m), EX (15m) & [facility] (15m) BARTOLOME TORRES LEATHER SCRUBBER Sep 04, 2021 09:58
--- NOTE | 2021-09-04 10:10 | Occupational Ther Daily Note ---
OT Current Status-Daily Note Subjective Pt alert, lying in bed. Pt agrees to therapy. No c/o pain at this time, nrsg noted that pain meds given before therapy. Mental Status/Objective Patient Orientation: Person, Place, Time, Situation Attachments: Other-See Comments (cast L arm) ADL-Treatment Pt agrees to shower. Min A for supine to EOB. Pt ambulated to bathroom with platform FWW and transferred into shower with CGA and verbal cues. Pt completed shower sitting on shower bench using LH sponge, grabbars and hand held shower. Assist given to cleanse buttocks while pt leaned toward side, pt cleanse all other areas. Assist given to hook bra, pt donned shirt by self. Pt required verbal/physical cues to use AE to thread lower body clothing over feet then assist with standing and hiking pants over hips. Pt used dressing stick to doff socks. Pt stated that assisted with oral care. PT/OT co-treat with pt ([id number]), 2 clinicians required for skilled treatment to decrease fall risk, increase mobility and activity tolerance during daily functional tasks. PT focusing on transfers, standing, w/c mobility and ambulation while OT focusing on functional mobility, B UE placement during mobility and ADLs. Therapy Code Descriptions/Definitions Functional [place] Measure: 0=Not Assessed/NA 4=Minimal Assistance 1=Total Assistance 5=Supervision or Setup 2=Maximal Assistance 6=Modified [place] 3=Moderate Assistance 7=Complete IndependenceSCALE: Activities may be completed with or without assistive devices. 9-Tbjdytvdns-snivzgp completes the activity by him/herself with no assistance from a helper. 5-Set-up or Clean-up Assistance-helper sets up or cleans up; patient completes activity. [place] assists only prior to or following the activity. 4-Supervision or Touching Assistance-helper provides verbal cues and/or touching/steadying and/or contact guard assistance as patient completes activity. Assistance may be provided throughout the activity or intermittently. 3-Partial/Moderate Assistance-helper does LESS THAN HALF the effort. [place] li fts, holds or supports trunk or limbs, but provides less than half the effort. 2-Substantial/Maximal Assistance-helper does MORE THAN HALF the effort. [place] lifts or holds trunk or limbs and provides more than half the effort. 4-Dfvzjswbd-bkfiou does ALL the effort. Patient does none of the effort to complete the activity. Or, the assistance of 2 or more helpers is required for the patient to complete the activity. If activity was not attempted, code reason: 7-Patient Refused. 9-Not Applicable-not attempted and the patient did not perform the activity before the current illness, exacerbation or injury. 10-Not Attempted due to Environmental Limitations-(lack of equipment, weather restraints, etc.). 88-Not Attempted due to Medical Conditions or Safety Concerns. Shower/Bathe Self (QC): 3 Upper Body Dressing (QC): 3 Lower Body Dressing (QC): 1 (2 person assist) Other Treatment Pt ambulated to therapy gym using platform FWW with CGA, see PT notes for progress. Pt then propelled w/c to [facility] to focus on standing tolerance while completing fine motor strengthening task. Pt tolerated well. After therapy, pt sitting in w/c in room with call light/phone in reach. All needs met in room. present in room. OT Short Term Goals Short Term Goals Time Frame: Sep 12, 2021 Eatin Oral hygiene: 3 Toileting hygiene: 2 Shower/bathe self: 3 Upper body dressin Lower body dressin Putting on/taking off footwear: 3 OT Marine Engine Driver Goals Alf Goals Time Frame: Sep 26, 2021 Eating (QC): 6 Oral Hygiene (QC): 5 Toileting Hygiene (QC): 4 Shower/Bathe Self (QC): 4 Upper Body Dressing (QC): 4 Lower Body Dressing (QC): 4 On/Off Footwear (QC): 4 1=Demonstrate adherence to instructed precautions during ADL tasks. 2=Patient will verbalize/demonstrate understanding of assistive dev ices/modifications for ADL. 3=Patient will improve strength/tolerance for activity to enable patient to perform ADL's. OT Education/Plan Problem List/Assessment Assessment: Decreased Activ Tolerance, Decreased UE Strength, Impaired Self- Care Skills, Restricted Funct UE ROM Discharge Recommendations Plan/Recommendations: Continue POC Treatment Plan/Plan of Care Patient would benefit from OT for education, treatment and training to promote independence in ADL's, mobility, safety and/or upper extremity function for ADL's. Plan of Care: ADL Retraining, Functional Mobility, Group Exercise/Act as Ind, UE Funct Exercise/Act, W/C Management Training Treatment Duration: Sep 26, 2021 Frequency: At least 5 of 7 days/Wk (IRF) Estimated Hrs Per Day: 1.5 hours per day Agreement: Yes Rehab Potential: Fair Time/GCodes Start Time: 08:45 Stop Time: 10:00 Total Time Billed (hr/min): 75 Billed Treatment Time 1 visit-ADL 3 (45 min) FA 2 (30 min) PT cotreat [id number], individual [id number] DALILA HERCULES Sep 04, 2021 10:10
[2021-09-04] MEDS: RT-ALBUTEROL SULF 2.5 MG/3 ML PRE-MIX VIAL INH SCH ×2 (10:38→20:52)
--- NOTE | 2021-09-04 13:29 | Occupational Ther Daily Note ---
OT Current Status-Daily Note Subjective Pt alert, lying in bed. Pt agrees to therapy. No c/o pain. Mental Status/Objective Patient Orientation: Person, Place, Time, Situation Attachments: Other-See Comments (marcus VEGA) ADL-Treatment Therapy Code Descriptions/Definitions Functional [place] Measure: 0=Not Assessed/NA 4=Minimal Assistance 1=Total Assistance 5=Supervision or Setup 2=Maximal Assistance 6=Modified [place] 3=Moderate Assistance 7=Complete IndependenceSCALE: Activities may be completed with or without assistive devices. 8-Ytjyzvqbtt-lyyscua completes the activity by him/herself with no assistance from a helper. 5-Set-up or Clean-up Assistance-helper sets up or cleans up; patient completes activity. [place] assists only prior to or following the activity. 4-Supervision or Touching Assistance-helper provides verbal cues and/or touching/steadying and/or contact guard assistance as patient completes activity. Assistance may be provided throughout the activity or intermittently. 3-Partial/Moderate Assistance-helper does LESS THAN HALF the effort. [place] lifts, holds or supports trunk or limbs, but provides less than half the effort. 2-Substantial/Maximal Assistance-helper does MORE THAN HALF the effort. [place] lifts or holds trunk or limbs and provides more than half the effort. 8-Jgsooujgh-bsbwtb does ALL the effort. Patient does none of the effort to complete the activity. Or, the assistance of 2 or more helpers is required for the patient to complete the activity. If activity was not attempted, code reason: 7-Patient Refused. 9-Not Applicable-not attempted and the patient did not perform the activity before the current illness, exacerbation or injury. 10-Not Attempted due to Environmental Limitations-(lack of equipment, weather restraints, etc.). 88-Not Attempted due to Medical Conditions or Safety Concerns. On/Off Footwear: 5 Other Treatment After verbal and gestural cues to apply socks to sock aide then uses to don sock. Pt then demonstrated understanding and independence with therapy sponge exercises. Pt then completed light resistance theraband exercises with R UE only for strengthening. 2 set 10 reps of tricep ext, bicep flexion and internal shldr rotation. After session, pt lying in bed with call light/phone in reach. All needs met in room. OT Short Term Goals Short Term Goals Time Frame: Sep 12, 2021 Eatin Oral hygiene: 3 Toileting hygiene: 2 Shower/bathe self: 3 Upper body dressin Lower body dressin Putting on/taking off footwear: 3 OT Intermediate Goals Intermediate Goals Time Frame: Sep 26, 2021 Eating (QC): 6 Oral Hygiene (QC): 5 Toileting Hygiene (QC): 4 Shower/Bathe Self (QC): 4 Upper Body Dressing (QC): 4 Lower Body Dressing (QC): 4 On/Off Footwear (QC): 4 1=Demonstrate adherence to instructed precautions during ADL tasks. 2=Patient will verbalize/demonstrate understanding of assistive devices/modifications for ADL. 3=Patient will improve strength/tolerance for activity to enable patient to perform ADL's. OT Education/Plan Problem List/Assessment Assessment: Decreased UE Strength, Impaired Self-Care Skills Discharge Recommendations Plan/Recommendations: Continue POC Treatment Plan/Plan of Care Patient would benefit from OT for education, treatment and training to promote independence in ADL's, mobility, safety and/or upper extremity function for ADL's. Plan of Care: ADL Retraining, Functional Mobility, Group Exercise/Act as Ind, UE Funct Exercise/Act, W/C Management Training Treatment Duration: Sep 26, 2021 Frequency: At least 5 of 7 days/Wk (IRF) Estimated Hrs Per Day: 1.5 hours per day Agreement: Yes Rehab Potential: Fair Time/GCodes Start Time: 13:00 Stop Time: 13:15 Total Time Billed (hr/min): 15 Billed Treatment Time 1 visit-FA 1 (15 min) DALILA HERCULES Sep 04, 2021 13:29
--- NOTE | 2021-09-04 15:32 | Physical Therapy Daily Note ---
PT Daily Note-Current Subjective Pt laying supine in bed upon arrival. Pt agrees to PT and asks for ways she can work on strength to improve walking. Pain Numeric Pain Scale: 5-Moderate Pain Location: Left Location Body Site: Hip Pain Description: Ache Mental Status Patient Orientation: Person, Place, Time, Situation Transfers SCALE: Activities may be completed with or without assistive devices. 4-Hvnpayyyjp-jvkmmtl completes the activity by him/herself with no assistance from a helper. 5-Set-up or Clean-up Assistance-helper sets up or cleans up; patient completes activity. [place] assists only prior to or following the activity. 4-Supervision or Touching Assistance-helper provides verbal cues and/or touching/steadying and/or contact guard assistance as patient completes activity. Assistance may be provided throughout the activity or intermittently. 3-Partial/Moderate Assistance-helper does LESS THAN HALF the effort. [place] lifts, holds or supports trunk or limbs, but provides less than half the effort. 2-Substantial/Maximal Assistance-helper does MORE THAN HALF the effort. [place] lifts or holds trunk or limbs and provides more than half the effort. 2-Hejdyzgfq-vnwucr does ALL the effort. Patient does none of the effort to complete the activity. Or, the assistance of 2 or more helpers is required for the patient to complete the activity. If activity was not attempted, code reason: 7-Patient Refused. 9-Not Applicable-not attempted and the patient did not perform the activity before the current illness, exacerbation or injury. 10-Not Attempted due to Environmental Limitations-(lack of equipment, weather restraints, etc.). 88-Not Attempted due to Medical Conditions or Safety Concerns. Weight Bearing Left Lower Extremity: Left Weight Bearing/Tolerated NWB LUE but can bear weight on elbow Exercises Supine Ex: Ankle pumps, Quad Set, Glut sets, Heel Slides, Straight leg raise, Hip abd/add Supine Reps: 15 Treatments Pt completes Supine EX w/instruction from SHOP SUPERVISOR & is issued written HEP for Supine & Seated EX. Pt resting with all needs met, call light in hand. Assessment Current Status: Good Progress Pt is improving with strength and this is seen with improved activity tolerance, longer ambulation & more normalized gait. PT Short Term Goals Short Term Goals Time Frame: Sep 05, 2021 Roll Left & Right: 3 Sit to lyin Lying to sitting on side of be: 3 Sit to stand: 3 Chair/ofs-oe-rmcdz transfer: 3 Walk 10 feet: 3 PT Group Home Goals House Fellow Goals PT Group Home Goals Time Frame: Sep 19, 2021 Roll Left & Right (QC): 3 (Moisés) Sit to Lying (QC): 3 (Moisés) Lying-Sitting on Side/Bed(QC): 3 (Moisés) Sit to Stand (QC): 3 (Moisés) Chair/Ytg-so-Eqcvk Xfer(QC): 3 (Moisés) Toilet Transfer (QC): 3 (Moisés) Car Transfer (QC): 3 (Moisés) Does the Patient Walk: Yes Walk 10 feet (QC): 3 (Moisés) Walk 50ft with 2 Turns (QC): 3 (Moisés) Walk 150 ft (QC): 88 Walking 10ft on Uneven Surface: 3 (Moisés) 1 Step (curb) (QC): 3 (Moisés) 4 Steps (QC): 88 12 Steps (QC): 88 Picking up an Object (QC): 88 Wheel 50 feet with 2 turns (QC: 5 Wheel 150 feet: 5 PT Plan Problem List Problem List: Activity Tolerance, Functional Strength, Gait Treatment/Plan Treatment Plan: Continue Plan of Care Treatment Plan: Bed Mobility, Education, Functional Activity Sheyla, Functional Strength, Group Therapy, Gait, Safety, Therapeutic Exercise, Transfers Treatment Duration: Sep 19, 2021 Frequency: At least 5 of 7 days/Wk (IRF) Estimated Hrs Per Day: 1.5 hours per day Patient and/or Family Agrees t: Yes Safety Risks/Education Patient Education: Issued Written HEP Teaching Recipient: Patient Teaching Methods: Discussion Response to Teaching: Verbalize Understanding Time/GCodes Time In: 1315 Time Out: 1345 Total Billed Treatment Time: 30 Total Billed Treatment 1, EX (20m) & FA (10m) BARTOLOME TORRES SHOP SUPERVISOR Sep 04, 2021 15:32
[2021-09-04 20:00] VITALS: BP 136/63
[2021-09-04] MEDS: SIMvastatin 20 MG (ZOCOR) TAB PO SCH (21:05)
[2021-09-04] MEDS: LATANOPROST 0.005% (XALATAN) OPHTH SOLN 2.5 ML OU SCH (21:10)
[2021-09-05] MEDS: KCL 10 MEQ TAB (MICRO K) PO SCH (06:54)
[2021-09-05] MEDS: CYANOCOBALAMIN 1,000 MCG (VITAMIN B-12) TABLET PO SCH (06:54)
[2021-09-05 08:00] VITALS: BP 159/69
[2021-09-05] MEDS: AMIODARONE 200 MG (CORDARONE) TAB PO SCH ×2 (08:13→21:26)
[2021-09-05] MEDS: PANTOPRAZOLE 40 MG (PROTONIX) TAB PO SCH (08:13)
[2021-09-05] MEDS: APIXABAN 5 MG (ELIQUIS) TABLET PO SCH ×2 (08:13→21:26)
[2021-09-05] MEDS: CALCIUM CARB + VIT D 600 MG (CALCARB + D) TAB PO SCH (08:13)
[2021-09-05] MEDS: VITAMIN D3 125 MCG (5,000 UNITS) CAPSULE PO SCH (08:13)
[2021-09-05] MEDS: TIMOLOL MALEATE 0.5% 5 ML (TIMOPTIC) BTL OU SCH ×2 (08:14→21:25)
[2021-09-05] MEDS: RT-ALBUTEROL SULF 2.5 MG/3 ML PRE-MIX VIAL INH SCH (08:30)
[2021-09-05] MEDS: DOCUSATE SODIUM 100 MG (COLACE) CAP PO SCH ×2 (08:44→21:28)
[2021-09-05] MEDS: SENNA W/DOCUSATE (SENOKOT S) TABLET PO SCH ×2 (08:45→21:29)
[2021-09-05] MEDS: polyethylene glycoL POWDER 17 GM (MIRALAX) PACK PO SCH ×2 (08:45→21:28)
[2021-09-05] MEDS ORDERED: RT-ALBUTEROL SULF 2.5 MG/3 ML PRE-MIX VIAL INH PRN (08:45)
[2021-09-05] MEDS: HYDROcodone/APAP 5 MG/325 MG (LORTAB) TAB PO PRN ×3 (09:00→23:23)
--- NOTE | 2021-09-05 10:13 | PM&R Progress Note ---
Subjective HPI/CC On Admission Date Seen by Provider: Sep 05, 2021 Time Seen by Provider: 11:00 Subjective/Events-last exam 09/05/2021: Patient doing well Had a good bowel movement today No major issues Ate a good breakfast 09/04/2021: Patient much improved Bowels moving Pain improved Transfers are better Motivated to go home 09/03/21: Patient doing well Right arm improved from IV infiltration Transferring better Wants to go home soon Omnicef completed BM regular 09/02/21: Patient doing very well WBC 14.7 Imodium ordered for loose stools Right arm IV infiltration improved Participating in therapy 09/01/21: Patient doing really well Tolerating pain with Tylenol only Lortab will be reserved before therapy Bowels are moving Voiding okay Dressing changes appear to be doing well 08/31/2021: Patient doing well Right arm from IV infiltration is sore so alternating between ice and K pad at the bedside Making progress in therapy 08/30/2021: Patient doing really well Working hard with therapy Pain is well controlled Last IV so changed antibiotic to p.o. Stopped last few doses of iron due to no IV access Pain is pretty well controlled Review of Systems General: Fatigue, Malaise Musculoskeletal: arm pain, leg pain Neurological: Weakness Objective Exam Vital Signs Vital Signs Date Time Temp Pulse Resp B/P (MAP) Pulse Ox O2 Delivery O2 Flow Rate FiO2 09/05/21 08:34 80 98 09/05/21 08:21 Room Air 09/05/21 08:00 36.8 14 159/69 (99) 09/01/21 18:54 24 Capillary Refill : General Appearance: No Apparent Distress, WD/WN, Anxious, Chronically ill, Other (Fatigued and pale) HEENT: PERRL/EOMI, Normal ENT Inspection, Pharynx Normal Neck: Full Range of Motion, Normal Inspection, Non Tender, Supple, Carotid Bruit Respiratory: Chest Non Tender, Lungs Clear, Normal Breath Sounds, No Accessory Muscle Use, No Respiratory Distress, Decreased Breath Sounds Cardiovascular: Regular Rate, Rhythm, No Edema, No Gallop, No JVD, No Murmur, Normal Peripheral Pulses Gastrointestinal: Normal Bowel Sounds, No Organomegaly, No Pulsatile Mass, Non Tender, Soft Back: Normal Inspection, No CVA Tenderness, No Vertebral Tenderness Extremity: Normal Capillary Refill, Normal Inspection, Normal Range of Motion, Non Tender, No Calf Tenderness, No Pedal Edema Neurologic/Psychiatric: Alert, Oriented x3, No Motor/Sensory Deficits, metal moulder II- XII Norm as 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 FIM Transfers Therapy Code Descriptions/Definitions Functional [place] Measure: 0=Not Assessed/NA 4=Minimal Assistance 1=Total Assistance 5=Supervision or Setup 2=Maximal Assistance 6=Modified [place] 3=Moderate Assistance 7=Complete IndependenceSCALE: Activities may be completed with or without assistive devices. 8-Owwmwevcaf-iszagfe completes the activity by him/herself with no assistance from a helper. 5-Set-up or Clean-up Assistance-helper sets up or cleans up; patient completes activity. [place] assists only prior to or following the activity. 4-Supervision or Touching Assistance-helper provides verbal cues and/or touching/steadying and/or contact guard assistance as patient completes activity. Assistance may be provided throughout the activity or intermittently. 3-Partial/Moderate Assistance-helper does LESS THAN HALF the effort. [place] lifts, holds or supports trunk or limbs, but provides less than half the effort. 2-Substantial/Maximal Assistance-helper does MORE THAN HALF the effort. [place] lifts or holds trunk or limbs and provides more than half the effort. 0-Brssmfxce-angbhb does ALL the effort. Patient does none of the effort to complete the activity. Or, the assistance of 2 or more helpers is required for the patient to complete the activity. If activity was not attempted, code reason: 7-Patient Refused. 9-Not Applicable-not attempted and the patient did not perform the activity before the current illness, exacerbation or injury. 10-Not Attempted due to Environmental Limitations-(lack of equipment, weather restraints, etc.). 88-Not Attempted due to Medical Conditions or Safety Concerns. Roll Left to Right (QC): 3 Sit to Lying (QC): 3 Sit to Stand (QC): 3 Chair/Lqb-yz-Avhgz Xfer(QC): 4 Car Transfer (QC): 88 Gait Training Does the Patient Walk?: Yes Distance: 125' Walk 10 feet (QC): 4 Walk 50 ft with 2 Turns(QC): 4 Walk 150 ft (QC): 88 Walking 10ft/uneven surface-QC: 88 Gait Persons Needed: 1 Gait Assistive Device: Walker Platform Wheelchair Training Does the Pt Use a Wheelchair?: Yes Distance: 100' Wheel 50 ft with 2 turns (QC): 4 Wheel 150 ft (QC): 4 Type of Wheelchair: Manual Stair Training 1 Step (curb) (QC): 88 4 Steps (QC): 88 12 Steps (QC): 88 Balance Picking up an Object (QC): 88 ADL-Treatment Eating (QC): 5 Oral Hygiene (QC): 4 (Supervision) Bathing Location: L Arm, R Arm, L Upper Leg, R Upper Leg, Chest, Abdomen, Perineal Area Shower/Bathe Self (QC): 3 Upper Body Dressing (QC): 3 Lower Body Dressing (QC): 1 (2 person assist) On/Off Footwear (QC): 5 Toileting Hygiene (QC): 1 Toilet Transfer (QC): 1 Assessment/Plan Assessment and Plan Assess & Plan/Chief Complaint Assessment: Left hip fracture Left wrist fracture Fall Postop pneumonia New onset atrial fibrillation with rapid ventricular response status post cardioversion unsuccessful and amiodarone drip x48 hours and spontaneously converted to normal sinus rhythm Oral anticoagulation for stroke prophylaxis Postop anemia Iron deficiency Hypothyroidism but low TSH placing patient at risk for atrial fibrillation so holding 25 mcg dose Depression situational type with decreased motivation IV infiltration right arm Plan: Monitor labs Iron supplement Oxygen Rehab protocol Cardiology appreciated Telemetry 08/30/2021: Supportive care Pain control Therapy regimen 08/31/2021: Transition to oral antibiotics K pad and ice to right arm 09/01/21: Monitor closely Pain control 09/02/21: Supportive care Kpad to right arm Imodium 09/03/21: Improved status Increase independence 09/04/2021: Continue pain control Aggressive therapy 09/05/2021: Continue meds Supportive care (1) Hip fracture Status: Acute (2) Pneumonia (3) Anemia due to acute blood loss (4) Iron deficiency (5) Low TSH level (6) Afib (7) HLD (hyperlipidemia) (8) Essential (primary) hypertension (9) Hypothyroidism (10) Wrist fracture Status: Acute (11) Osteoporosis JENIFFER VAZ DO Sep 05, 2021 10:13
--- NOTE | 2021-09-05 11:04 | Physical Therapy Daily Note ---
PT Daily Note-Current Subjective Pt laying Supine in bed upon arrival. Pt agrees to PT. Pain Numeric Pain Scale: 5-Moderate Pain Location: Left Location Body Site: Hip Pain Description: Ache Mental Status Patient Orientation: Person, Place, Time, Situation Transfers SCALE: Activities may be completed with or without assistive devices. 3-Bmefnvckew-iooxmix completes the activity by him/herself with no assistance from a helper. 5-Set-up or Clean-up Assistance-helper sets up or cleans up; patient completes activity. [place] assists only prior to or following the activity. 4-Supervision or Touching Assistance-helper provides verbal cues and/or touching/steadying and/or contact guard assistance as patient completes activity. Assistance may be provided throughout the activity or intermittently. 3-Partial/Moderate Assistance-helper does LESS THAN HALF the effort. [place] lifts, holds or supports trunk or limbs, but provides less than half the effort. 2-Substantial/Maximal Assistance-helper does MORE THAN HALF the effort. [place] lifts or holds trunk or limbs and provides more than half the effort. 9-Pwqqkmgvf-nupvmo does ALL the effort. Patient does none of the effort to complete the activity. Or, the assistance of 2 or more helpers is required for the patient to complete the activity. If activity was not attempted, code reason: 7-Patient Refused. 9-Not Applicable-not attempted and the patient did not perform the activity before the current illness, exacerbation or injury. 10-Not Attempted due to Environmental Limitations-(lack of equipment, weather restraints, etc.). 88-Not Attempted due to Medical Conditions or Safety Concerns. Lying to Sitting/Side of Bed(Q: 4 Sit to Stand (QC): 3 Weight Bearing Left Lower Extremity: Left Weight Bearing/Tolerated NWB LUE but can bear weight on elbow Gait Training Does the Patient Walk?: Yes Distance: 150' Walk 10 feet (QC): 4 Walk 50 ft with 2 Turns(QC): 4 Walk 150 ft (QC): 4 Gait Persons Needed: 1 Gait Assistive Device: Walker Platform Wheelchair Training Does the Pt Use a Wheelchair?: Yes Wheel 50 ft with 2 turns (QC): 4 Wheel 150 ft (QC): 4 Type of Wheelchair: Manual Exercises Supine Ex: Ankle pumps, Quad Set, Glut sets, Heel Slides, Hip abd/add Supine Reps: 15 Seated Therapy Exercises: Sit to stand Seated Reps: 5 Treatments Pt completes Supine EX then OT arrives. OT/PT co-treat ([id number]), 2 clinicians required to decrease fall risk, increase activity tolerance and overall strength for daily functional tasks. PT focusing on transfers, ambulation and B LE strengthening while OT focusing on functional activities during mobility. Supine to EOB CGA, EOB to supine min A. Pt working on sit to stand at parallel bars 5x's with CGA to min A due to fatigue. PT departs and OT continues tx. Assessment Current Status: Good Progress Pt is improving with strength and transfers. Pt still needing assistance but is improving. PT Short Term Goals Short Term Goals Time Frame: Sep 05, 2021 Roll Left & Right: 3 Sit to lyin Lying to sitting on side of be: 3 Sit to stand: 3 Chair/bxu-cu-rkzpa transfer: 3 Walk 10 feet: 3 PT Prison Goals Prison Goals PT Prison Goals Time Frame: Sep 19, 2021 Roll Left & Right (QC): 3 (Moisés) Sit to Lying (QC): 3 (Moisés) Lying-Sitting on Side/Bed(QC): 3 (Moisés) Sit to Stand (QC): 3 (Moisés) Chair/Moj-ff-Oyjch Xfer(QC): 3 (Moisés) Toilet Transfer (QC): 3 (Moisés) Car Transfer (QC): 3 (Moisés) Does the Patient Walk: Yes Walk 10 feet (QC): 3 (Moisés) Walk 50ft with 2 Turns (QC): 3 (Moisés) Walk 150 ft (QC): 88 Walking 10ft on Uneven Surface: 3 (Moisés) 1 Step (curb) (QC): 3 (Moisés) 4 Steps (QC): 88 12 Steps (QC): 88 Picking up an Object (QC): 88 Wheel 50 feet with 2 turns (QC: 5 Wheel 150 feet: 5 PT Plan Problem List Problem List: Activity Tolerance, Functional Strength, Gait, Transfer Treatment/Plan Treatment Plan: Continue Plan of Care Treatment Plan: Bed Mobility, Education, Functional Activity Sheyla, Functional Strength, Group Therapy, Gait, Safety, Therapeutic Exercise, Transfers Treatment Duration: Sep 19, 2021 Frequency: At least 5 of 7 days/Wk (IRF) Estimated Hrs Per Day: 1.5 hours per day Patient and/or Family Agrees t: Yes Safety Risks/Education Patient Education: Gait Training, Transfer Techniques, Correct Positioning, Safety Issues Teaching Recipient: Patient Teaching Methods: Discussion Response to Teaching: Verbalize Understanding Time/GCodes Time In: 845 Time Out: 930 Total Billed Treatment Time: 45 Total Billed Treatment Co-treat w/OT 30m ([id number]) 1, EX (15m), GT (15m) & FA (15m) BARTOLOME TORRES CONTINUING EDUCATION INSTRUCTOR Sep 05, 2021 11:04
--- NOTE | 2021-09-05 14:14 | Occupational Ther Daily Note ---
OT Current Status-Daily Note Subjective Pt alert, lying in bed. Pt agrees to therapy. No c/o pain. Mental Status/Objective Patient Orientation: Person, Place, Time, Situation ADL-Treatment Pt declines shower today and has already complete oral care with . Assisted pt with donning clothing due to time constraints. Therapy Code Descriptions/Definitions Functional [place] Measure: 0=Not Assessed/NA 4=Minimal Assistance 1=Total Assistance 5=Supervision or Setup 2=Maximal Assistance 6=Modified [place] 3=Moderate Assistance 7=Complete IndependenceSCALE: Activities may be completed with or without assistive devices. 0-Rmvlpzoave-gqqaies completes the activity by him/herself with no assistance from a helper. 5-Set-up or Clean-up Assistance-helper sets up or cleans up; patient completes activity. [place] assists only prior to or following the activity. 4-Supervision or Touching Assistance-helper provides verbal cues and/or touching/steadying and/or contact guard assistance as patient completes activity. Assistance may be provided throughout the activity or intermittently. 3-Partial/Moderate Assistance-helper does LESS THAN HALF the effort. [place] lifts, holds or supports trunk or limbs, but provides less than half the effort. 2-Substantial/Maximal Assistance-helper does MORE THAN HALF the effort. [place] lifts or holds trunk or limbs and provides more than half the effort. 4-Pneryutod-hrkbof does ALL the effort. Patient does none of the effort to complete the activity. Or, the assistance of 2 or more helpers is required for the patient to complete the activity. If activity was not attempted, code reason: 7-Patient Refused. 9-Not Applicable-not attempted and the patient did not perform the activity before the current illness, exacerbation or injury. 10-Not Attempted due to Environmental Limitations-(lack of equipment, weather restraints, etc.). 88-Not Attempted due to Medical Conditions or Safety Concerns. Other Treatment 1st session ([id number]): OT/PT co-treat ([id number]), 2 clinicians required to decrease fall risk, increase activity tolerance and overall strength for daily functional tasks. PT focusing on transfers, ambulation and B LE strengthening while OT focusing on functional activities during mobility. Supine to EOB CGA, EOB to supine min A. Pt working on sit to stand at parallel bars 5x's with CGA to min A due to fatigue. Pt then complete B UE pulleys for 3 min without recovery break. 3 min x2 with hitting balloon back and forth without breaks, 2nd time pt had 1# wrist weight applied. After therapy, pt lying in bed with call light/phone in reach. All needs met in room. 2nd session ([id number]): Pt requested to get back into bed due to discomfort. Is willing to continue therapy for B UE strengthening. CGA to ambulated to bed using platform FWW, min A for EOB to supine. Completed B UE strengthening exercises to increase strength for daily functional tasks. Resistive clothespins nursery supervisor resistance with L UE and heavier resistance with R UE x2. Pt then completed light resistance theraband UE exercises, rows-2 sets 10 reps, bicep curls- 2 sets 10 reps, internal rotation 2 sets 10 reps. After session, pt lying in bed with call light/phone in reach. All needs met in room. OT Short Term Goals Short Term Goals Time Frame: Sep 12, 2021 Eatin Oral hygiene: 3 Toileting hygiene: 2 Shower/bathe self: 3 Upper body dressin Lower body dressin Putting on/taking off footwear: 3 OT Bevel Operator Goals [facility] Goals Time Frame: Sep 26, 2021 Eating (QC): 6 Oral Hygiene (QC): 5 Toileting Hygiene (QC): 4 Shower/Bathe Self (QC): 4 Upper Body Dressing (QC): 4 Lower Body Dressing (QC): 4 On/Off Footwear (QC): 4 1=Demonstrate adherence to instructed precautions during ADL tasks. 2=Patient will verbalize/demonstrate understanding of assistive devices/modifications for ADL. 3=Patient will improve strength/tolerance for activity to enable patient to perform ADL's. OT Education/Plan Problem List/Assessment Assessment: Decreased Activ Tolerance, Decreased UE Strength, Impaired Bed Mobility, Impaired Self-Care Skills, Restricted Funct UE ROM Discharge Recommendations Plan/Recommendations: Continue POC Treatment Plan/Plan of Care Patient would benefit from OT for education, treatment and training to promote independence in ADL's, mobility, safety and/or upper extremity function for ADL's. Plan of Care: ADL Retraining, Functional Mobility, Group Exercise/Act as Ind, UE Funct Exercise/Act, W/C Management Training Treatment Duration: Sep 26, 2021 Frequency: At least 5 of 7 days/Wk (IRF) Estimated Hrs Per Day: 1.5 hours per day Agreement: Yes Rehab Potential: Fair Time/GCodes Start Time: 09:00 (1300) Stop Time: 10:00 (1330) Total Time Billed (hr/min): 90 Billed Treatment Time 1 visit([id number]) ADL(15 min) FA 1 (15 min) EX 2 (30 min) co-treat with PT [id number], individual [id number] 1 visit(3727-3205) EX 2 (30 min) DALILA HERCULES Sep 05, 2021 14:14
--- NOTE | 2021-09-05 14:28 | Physical Therapy Daily Note ---
PT Daily Note-Current Subjective Pt laying supine in bed upon arrival. Pt agrees to PT. Pain Numeric Pain Scale: 5-Moderate Pain Location: Left Location Body Site: Hip Pain Description: Ache Mental Status Patient Orientation: Person, Place, Time, Situation Transfers SCALE: Activities may be completed with or without assistive devices. 2-Qnduimhiyn-ppeudud completes the activity by him/herself with no assistance from a helper. 5-Set-up or Clean-up Assistance-helper sets up or cleans up; patient completes activity. [place] assists only prior to or following the activity. 4-Supervision or Touching Assistance-helper provides verbal cues and/or touching/steadying and/or contact guard assistance as patient completes activity. Assistance may be provided throughout the activity or intermittently. 3-Partial/Moderate Assistance-helper does LESS THAN HALF the effort. [place] lifts, holds or supports trunk or limbs, but provides less than half the effort. 2-Substantial/Maximal Assistance-helper does MORE THAN HALF the effort. [place] lifts or holds trunk or limbs and provides more than half the effort. 2-Tfhcjxzdh-hjecao does ALL the effort. Patient does none of the effort to complete the activity. Or, the assistance of 2 or more helpers is required for the patient to complete the activity. If activity was not attempted, code reason: 7-Patient Refused. 9-Not Applicable-not attempted and the patient did not perform the activity before the current illness, exacerbation or injury. 10-Not Attempted due to Environmental Limitations-(lack of equipment, weather restraints, etc.). 88-Not Attempted due to Medical Conditions or Safety Concerns. Sit to Lying (QC): 4 Lying to Sitting/Side of Bed(Q: 4 Sit to Stand (QC): 3 Weight Bearing Left Lower Extremity: Left Weight Bearing/Tolerated NWB LUE but can bear weight on elbow Gait Training Does the Patient Walk?: Yes Distance: 150' Walk 10 feet (QC): 4 Walk 50 ft with 2 Turns(QC): 4 Walk 150 ft (QC): 4 Gait Persons Needed: 1 Gait Assistive Device: Walker Platform RB needed for fatigue. VC for picking up R LE when WB on L LE instead of shuffling. Exercises Supine Ex: Ankle pumps, Quad Set, Glut sets, Heel Slides, Straight leg raise, Hip abd/add Supine Reps: 10 Seated Therapy Exercises: Long arc quads, Hip flexion Seated Reps: 10 Treatments Pt completes Supine EX then TF to EOB then Seated Ex. TF to Standing and amb. in hallway w/W[facility] following. Pt takes RB during amb. before returning to room to rest. TF back to supine in bed to rest. All needs met, call light in hand. Assessment Current Status: Good Progress Pt is improving with transfers and mobility although still needing assistance from RETAIL GENERAL MANAGER. PT Short Term Goals Short Term Goals Time Frame: Sep 05, 2021 Roll Left & Right: 3 Sit to lyin Lying to sitting on side of be: 3 Sit to stand: 3 Chair/cer-wl-ojmoh transfer: 3 Walk 10 feet: 3 PT Skilled Nursing Goals Skilled Nursing Goals PT Skilled Nursing Goals Time Frame: Sep 19, 2021 Roll Left & Right (QC): 3 (Moisés) Sit to Lying (QC): 3 (Moisés) Lying-Sitting on Side/Bed(QC): 3 (Moisés) Sit to Stand (QC): 3 (Moisés) Chair/Mpf-ed-[place] Xfer(QC): 3 (Moisés) Toilet Transfer (QC): 3 (Moisés) Car Transfer (QC): 3 (Moisés) Does the Patient Walk: Yes Walk 10 feet (QC): 3 (Moisés) Walk 50ft with 2 Turns (QC): 3 (Moisés) Walk 150 ft (QC): 88 Walking 10ft on Uneven Surface: 3 (Moisés) 1 Step (curb) (QC): 3 (Moisés) 4 Steps (QC): 88 12 Steps (QC): 88 Picking up an Object (QC): 88 Wheel 50 feet with 2 turns (QC: 5 Wheel 150 feet: 5 PT Plan Problem List Problem List: Activity Tolerance, Functional Strength, Gait Treatment/Plan Treatment Plan: Continue Plan of Care Treatment Plan: Bed Mobility, Education, Functional Activity Sheyla, Functional Strength, Group Therapy, Gait, Safety, Therapeutic Exercise, Transfers Treatment Duration: Sep 19, 2021 Frequency: At least 5 of 7 days/Wk (IRF) Estimated Hrs Per Day: 1.5 hours per day Patient and/or Family Agrees t: Yes Safety Risks/Education Patient Education: Gait Training, Transfer Techniques, Correct Positioning Teaching Recipient: Patient Teaching Methods: Discussion Response to Teaching: Verbalize Understanding Time/GCodes Time In: 1345 Time Out: 1430 Total Billed Treatment Time: 45 Total Billed Treatment 1, EX (20m) & GT x2 (25m) BARTOLOME TORRES RETAIL GENERAL MANAGER Sep 05, 2021 14:28
[2021-09-05 19:51] VITALS: BP 131/63
[2021-09-05] MEDS: SIMvastatin 20 MG (ZOCOR) TAB PO SCH (21:26)
[2021-09-05] MEDS: LATANOPROST 0.005% (XALATAN) OPHTH SOLN 2.5 ML OU SCH (21:27)
--- NOTE | 2021-09-06 06:12 | PM&R Progress Note ---
Subjective HPI/CC On Admission Date Seen by Provider: Sep 06, 2021 Time Seen by Provider: 06:00 Subjective/Events-last exam 09/06/21: Pt doing well No significant concerns Checked meds and labs No falls 09/05/2021: Patient doing well Had a good bowel movement today No major issues Ate a good breakfast 09/04/2021: Patient much improved Bowels moving Pain improved Transfers are better Motivated to go home 09/03/21: Patient doing well Right arm improved from IV infiltration Transferring better Wants to go home soon Omnicef completed BM regular 09/02/21: Patient doing very well WBC 14.7 Imodium ordered for loose stools Right arm IV infiltration improved Participating in therapy 09/01/21: Patient doing really well Tolerating pain with Tylenol only Lortab will be reserved before therapy Bowels are moving Voiding okay Dressing changes appear to be doing well 08/31/2021: Patient doing well Right arm from IV infiltration is sore so alternating between ice and K pad at the bedside Making progress in therapy 08/30/2021: Patient doing really well Working hard with therapy Pain is well controlled Last IV so changed antibiotic to p.o. Stopped last few doses of iron due to no IV access Pain is pretty well controlled Review of Systems General: Fatigue Musculoskeletal: arm pain, leg pain Objective Exam Vital Signs Vital Signs Date Time Temp Pulse Resp B/P (MAP) Pulse Ox O2 Delivery O2 Flow Rate FiO2 09/06/21 20:50 Room Air 09/06/21 19:58 36.8 78 20 135/61 (85) 98 09/01/21 18:54 24 Capillary Refill : General Appearance: No Apparent Distress, WD/WN, Anxious, Chronically ill, Other (Fatigued and pale) HEENT: PERRL/EOMI, Normal ENT Inspection, Pharynx Normal Neck: Full Range of Motion, Normal Inspection, Non Tender, Supple, Carotid Bruit Respiratory: Chest Non Tender, Lungs Clear, Normal Breath Sounds, No Accessory Muscle Use, No Respiratory Distress, Decreased Breath Sounds Cardiovascular: Regular Rate, Rhythm, No Edema, No Gallop, No JVD, No Murmur, Normal Peripheral Pulses Gastrointestinal: Normal Bowel Sounds, No Organomegaly, No Pulsatile Mass, Non Tender, Soft Back: Normal Inspection, No CVA Tenderness, No Vertebral Tenderness Extremity: Normal Capillary Refill, Normal Inspection, Normal Range of Motion, Non Tender, No Calf Tenderness, No Pedal Edema Neurologic/Psychiatric: Alert, Oriented x3, No Motor/Sensory Deficits, social media designer II- XII Norm as 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 FIM Transfers Therapy Code Descriptions/Definitions Functional [place] Measure: 0=Not Assessed/NA 4=Minimal Assistance 1=Total Assistance 5=Supervision or Setup 2=Maximal Assistance 6=Modified [place] 3=Moderate Assistance 7=Complete IndependenceSCALE: Activities may be completed with or without assistive devices. 6-Bidsvipnlc-dhebpdr completes the activity by him/herself with no assistance from a helper. 5-Set-up or Clean-up Assistance-helper sets up or cleans up; patient completes activity. [place] assists only prior to or following the activity. 4-Supervision or Touching Assistance-helper provides verbal cues and/or touching/steadying and/or contact guard assistance as patient completes activity. Assistance may be provided throughout the activity or intermittently. 3-Partial/Moderate Assistance-helper does LESS THAN HALF the effort. [place] lifts, holds or supports trunk or limbs, but provides less than half the effort. 2-Substantial/Maximal Assistance-helper does MORE THAN HALF the effort. [place] lifts or holds trunk or limbs and provides more than half the effort. 1-Nsmpyxlne-ypdurl does ALL the effort. Patient does none of the effort to complete the activity. Or, the assistance of 2 or more helpers is required for the patient to complete the activity. If activity was not attempted, code reason: 7-Patient Refused. 9-Not Applicable-not attempted and the patient did not perform the activity before the current illness, exacerbation or injury. 10-Not Attempted due to Environmental Limitations-(lack of equipment, weather restraints, etc.). 88-Not Attempted due to Medical Conditions or Safety Concerns. Roll Left to Right (QC): 3 Sit to Lying (QC): 4 Sit to Stand (QC): 3 Chair/Ufn-dm-Bsrmd Xfer(QC): 4 Car Transfer (QC): 88 Gait Training Does the Patient Walk?: Yes Distance: 150' Walk 10 feet (QC): 4 Walk 50 ft with 2 Turns(QC): 4 Walk 150 ft (QC): 4 Walking 10ft/uneven surface-QC: 88 Gait Persons Needed: 1 Gait Assistive Device: Walker Platform Wheelchair Training Does the Pt Use a Wheelchair?: Yes Distance: 100' Wheel 50 ft with 2 turns (QC): 4 Wheel 150 ft (QC): 4 Type of Wheelchair: Manual Stair Training 1 Step (curb) (QC): 88 4 Steps (QC): 88 12 Steps (QC): 88 Balance Picking up an Object (QC): 88 ADL-Treatment Eating (QC): 5 Oral Hygiene (QC): 4 (Supervision) Bathing Location: L Arm, R Arm, L Upper Leg, R Upper Leg, Chest, Abdomen, Perineal Area Shower/Bathe Self (QC): 3 Upper Body Dressing (QC): 3 Lower Body Dressing (QC): 1 (2 person assist) On/Off Footwear (QC): 5 Toileting Hygiene (QC): 1 Toilet Transfer (QC): 1 Assessment/Plan Assessment and Plan Assess & Plan/Chief Complaint Assessment: Left hip fracture Left wrist fracture Fall Postop pneumonia New onset atrial fibrillation with rapid ventricular response status post cardioversion unsuccessful and amiodarone drip x48 hours and spontaneously converted to normal sinus rhythm Oral anticoagulation for stroke prophylaxis Postop anemia Iron deficiency Hypothyroidism but low TSH placing patient at risk for atrial fibrillation so holding 25 mcg dose Depression situational type with decreased motivation IV infiltration right arm Plan: Monitor labs Iron supplement Oxygen Rehab protocol Cardiology appreciated Telemetry 08/30/2021: Supportive care Pain control Therapy regimen 08/31/2021: Transition to oral antibiotics K pad and ice to right arm 09/01/21: Monitor closely Pain control 09/02/21: Supportive care Kpad to right arm Imodium 09/03/21: Improved status Increase independence 09/04/2021: Continue pain control Aggressive therapy 09/05/2021: Continue meds Supportive care 09/06/21: DC planned for next week (1) Hip fracture Status: Acute (2) Pneumonia (3) Anemia due to acute blood loss (4) Iron deficiency (5) Low TSH level (6) Afib (7) HLD (hyperlipidemia) (8) Essential (primary) hypertension (9) Hypothyroidism (10) Wrist fracture Status: Acute (11) Osteoporosis JENIFFER VAZ DO Sep 06, 2021 06:12
[2021-09-06] MEDS: CYANOCOBALAMIN 1,000 MCG (VITAMIN B-12) TABLET PO SCH (06:48)
[2021-09-06] MEDS: KCL 10 MEQ TAB (MICRO K) PO SCH (06:48)
[2021-09-06 07:46] VITALS: BP 160/72
[2021-09-06] MEDS: polyethylene glycoL POWDER 17 GM (MIRALAX) PACK PO SCH ×2 (08:42→19:31)
[2021-09-06] MEDS: APIXABAN 5 MG (ELIQUIS) TABLET PO SCH ×2 (08:42→20:32)
[2021-09-06] MEDS: VITAMIN D3 125 MCG (5,000 UNITS) CAPSULE PO SCH (08:42)
[2021-09-06] MEDS: PANTOPRAZOLE 40 MG (PROTONIX) TAB PO SCH (08:42)
[2021-09-06] MEDS: SENNA W/DOCUSATE (SENOKOT S) TABLET PO SCH ×2 (08:42→19:32)
[2021-09-06] MEDS: DOCUSATE SODIUM 100 MG (COLACE) CAP PO SCH ×2 (08:42→19:31)
[2021-09-06] MEDS: CALCIUM CARB + VIT D 600 MG (CALCARB + D) TAB PO SCH (08:42)
[2021-09-06] MEDS: AMIODARONE 200 MG (CORDARONE) TAB PO SCH ×2 (08:42→20:31)
[2021-09-06] MEDS: TIMOLOL MALEATE 0.5% 5 ML (TIMOPTIC) BTL OU SCH ×2 (08:44→20:33)
--- NOTE | 2021-09-06 09:23 | Occupational Ther Daily Note ---
OT Current Status-Daily Note Subjective Pt alert, sitting up in recliner. Daughter present in room. Pt's daughter reported that pt was feeling a burning sensation while urinating, reported this to nrsg. Pt c/o pain in L shldr, educated pt on positioning to guard from pain with sit to stands. Mental Status/Objective Patient Orientation: Person, Place, Time, Situation Attachments: Other-See Comments (cast and cochlear implant) ADL-Treatment Pt agrees to shower. Pt ambulates in to bathroom using platform FWW with CGA and transfers onto elevated BSC to toilet with min A. Pt able to manipulate clothing while assist given to stabilize while standing. In sitting, pt complete toilet hygiene. Pt then ambulates to shower and transfers with verbal cues and min A to sit on shower bench, mod A for sit to stand while using grabbars to pull up. Sitting on shower bench, pt is able to cleanse self using hand held shower, grabbars and LH sponge then assist while standing to cleanse buttocks. Co-treat with PT [id number], skills of 2 clinicians required to increase mobility, overall strength, ambulation and transfers. PT focusing on transfers, sit to stand and ambulation while OT focusing on ADLs and functional mobility. Due to time constraints assist given for dressing. Therapy Code Descriptions/Definitions Functional [place] Measure: 0=Not Assessed/NA 4=Minimal Assistance 1=Total Assistance 5=Supervision or Setup 2=Maximal Assistance 6=Modified [place] 3=Moderate Assistance 7=Complete IndependenceSCALE: Activities may be completed with or without assistive devices. 6-Kjoviljass-nneoktu completes the activity by him/herself with no assistance from a helper. 5-Set-up or Clean-up Assistance-helper sets up or cleans up; patient completes activity. [place] assists only prior to or following the activity. 4-Supervision or Touching Assistance-helper provides verbal cues and/or touching/steadying and/or contact guard assistance as patient completes activity. Assistance may be provided throughout the activity or intermittently. 3-Partial/Moderate Assistance-helper does LESS THAN HALF the effort. [place] lifts, holds or supports trunk or limbs, but provides less than half the effort. 2-Substantial/Maximal Assistance-helper does MORE THAN HALF the effort. [place] lifts or holds trunk or limbs and provides more than half the effort. 0-Ppmqbvkao-kpjgsd does ALL the effort. Patient does none of the effort to complete the activity. Or, the assistance of 2 or more helpers is required for the patient to complete the activity. If activity was not attempted, code reason: 7-Patient Refused. 9-Not Applicable-not attempted and the patient did not perform the activity before the current illness, exacerbation or injury. 10-Not Attempted due to Environmental Limitations-(lack of equipment, weather restraints, etc.). 88-Not Attempted due to Medical Conditions or Safety Concerns. Shower/Bathe Self (QC): 3 Toileting Hygiene (QC): 3 Toilet Transfer (QC): 3 (Min A due to elevated surface) Other Treatment See PT notes for ambulation progress. After session, pt sitting in recliner with call light/phone in reach. Daughter present in room. All needs met. OT Short Term Goals Short Term Goals Time Frame: Sep 12, 2021 Eatin Oral hygiene: 3 Toileting hygiene: 2 Shower/bathe self: 3 Upper body dressin Lower body dressin Putting on/taking off footwear: 3 OT Usp Goals Usp Goals Time Frame: Sep 26, 2021 Eating (QC): 6 Oral Hygiene (QC): 5 Toileting Hygiene (QC): 4 Shower/Bathe Self (QC): 4 Upper Body Dressing (QC): 4 Lower Body Dressing (QC): 4 On/Off Footwear (QC): 4 1=Demonstrate adherence to instructed precautions during ADL tasks. 2=Patient will verbalize/demonstrate understanding of assistive devices/mod ifications for ADL. 3=Patient will improve strength/tolerance for activity to enable patient to perform ADL's. OT Education/Plan Problem List/Assessment Assessment: Decreased Activ Tolerance, Decreased UE Strength, Impaired Funct Balance, Impaired Self-Care Skills, Restricted Funct UE ROM Discharge Recommendations Plan/Recommendations: Continue POC Treatment Plan/Plan of Care Patient would benefit from OT for education, treatment and training to promote independence in ADL's, mobility, safety and/or upper extremity function for ADL' s. Plan of Care: ADL Retraining, Functional Mobility, Group Exercise/Act as Ind, UE Funct Exercise/Act, W/C Management Training Treatment Duration: Sep 26, 2021 Frequency: At least 5 of 7 days/Wk (IRF) Estimated Hrs Per Day: 1.5 hours per day Agreement: Yes Rehab Potential: Fair Time/GCodes Start Time: 08:30 Stop Time: 09:30 Total Time Billed (hr/min): 60 Billed Treatment Time 1 visit-ADL 3 (40 min) FA 1 (20 min) co-treat with PT [id number], individual [id number] DALILA HERCULES Sep 06, 2021 09:23
--- NOTE | 2021-09-06 09:28 | Physical Therapy Daily Note ---
PT Daily Note-Current Subjective Pt in shower w/ OT upon arrival and agrees to co-treat. Co-treat d/t pt poor mobility, weakness, safety, and decrease risk of falls. Mental Status Patient Orientation: Person, Place, Time, Situation Transfers SCALE: Activities may be completed with or without assistive devices. 7-Agjirgvwnl-poezmet completes the activity by him/herself with no assistance from a helper. 5-Set-up or Clean-up Assistance-helper sets up or cleans up; patient completes activity. [place] assists only prior to or following the activity. 4-Supervision or Touching Assistance-helper provides verbal cues and/or touching/steadying and/or contact guard assistance as patient completes activity. Assistance may be provided throughout the activity or intermittently. 3-Partial/Moderate Assistance-helper does LESS THAN HALF the effort. [place] lifts, holds or supports trunk or limbs, but provides less than half the effort. 2-Substantial/Maximal Assistance-helper does MORE THAN HALF the effort. [place] lifts or holds trunk or limbs and provides more than half the effort. 6-Lscuivrco-wrchlp does ALL the effort. Patient does none of the effort to complete the activity. Or, the assistance of 2 or more helpers is required for the patient to complete the activity. If activity was not attempted, code reason: 7-Patient Refused. 9-Not Applicable-not attempted and the patient did not perform the activity before the current illness, exacerbation or injury. 10-Not Attempted due to Environmental Limitations-(lack of equipment, weather restraints, etc.). 88-Not Attempted due to Medical Conditions or Safety Concerns. Sit to Stand (QC): 3 Stand to sit- VC given to remove L UE from platform prior to sitting from stand. Weight Bearing Left Lower Extremity: Left Weight Bearing/Tolerated NWB LUE but can bear weight on elbow Gait Training Does the Patient Walk?: Yes Distance: 150' Gait Assistive Device: Walker Platform Pt amb 150' with one seated rest break, CGA/Moisés and a WC follow. Pt has accelerated pace with an antalgic gait and decreased stance time on L LE. Treatments OT focused on showering, dressing, and UE strengthening/positioning. PT focused on transfers, mobility, and LE strengthening/positioning. Pt finishing up shower upon arrival, able to lift B LE for dressing. Pt holds standing approx 2 mins in order to have bandages changed and don pants. Pt then amb 150' in halls and returns to room. Pt returns to recliner with daughter in room, pt left with all needs met and call light in hand. Assessment Current Status: Fair Progress Pt daughter states they were given a FWW with B platforms and states she will bring it onto ARU to see if it would work with pt. Pt increasing endurance and mobility. PT Short Term Goals Short Term Goals Time Frame: Sep 05, 2021 Roll Left & Right: 3 Sit to lyin Lying to sitting on side of be: 3 Sit to stand: 3 Chair/jys-jl-fzots transfer: 3 Walk 10 feet: 3 PT Detention Goals Shoer Goals PT Shoer Goals Time Frame: Sep 19, 2021 Roll Left & Right (QC): 3 (Moisés) Sit to Lying (QC): 3 (Moisés) Lying-Sitting on Side/Bed(QC): 3 (Moisés) Sit to Stand (QC): 3 (Moisés) Chair/Skm-iz-Apmmp Xfer(QC): 3 (Moisés) Toilet Transfer (QC): 3 (Moisés) Car Transfer (QC): 3 (Moisés) Does the Patient Walk: Yes Walk 10 feet (QC): 3 (Moisés) Walk 50ft with 2 Turns (QC): 3 (Moisés) Walk 150 ft (QC): 88 Walking 10ft on Uneven Surface: 3 (Moisés) 1 Step (curb) (QC): 3 (Moisés) 4 Steps (QC): 88 12 Steps (QC): 88 Picking up an Object (QC): 88 Wheel 50 feet with 2 turns (QC: 5 Wheel 150 feet: 5 PT Plan Treatment/Plan Treatment Plan: Continue Plan of Care Treatment Plan: Bed Mobility, Education, Functional Activity Sheyla, Functional Strength, Group Therapy, Gait, Safety, Therapeutic Exercise, Transfers Treatment Duration: Sep 19, 2021 Frequency: At least 5 of 7 days/Wk (IRF) Estimated Hrs Per Day: 1.5 hours per day Patient and/or Family Agrees t: Yes Time/GCodes Time In: 845 Time Out: 930 Total Billed Treatment Time: 45 Total Billed Treatment 1, FA x2, GT SUMANTH MARROQUIN WEBFOCUS DEVELOPER Sep 06, 2021 09:28
--- NOTE | 2021-09-06 14:40 | Therapy Group Daily Note ---
Therapy Daily Group Note Patient Education Topic Home Safety, Fall Prevention, Home Safety, Exercises, Other List Below (Fall Transfers ) Exercises LE Seated Exercise, UE Exercise Session Ratio (pt:therapist): 3:1 Goal of Session: Home Safety Strategies, UE/LE Strengthing Goal Met for this Session: Yes Pt Benefit of Group: Contributions to Others, F/U Use of Strategies @Home, Increased Functional Safety, Increased Functional Strength, Improved Cognition, Recognition of Peers, Socialization Other/Notes Pt amb to [facility] for OT/PT group with platform FWW and CGA. Group consisted of introductions (name, place living, childhood), socialization, seated UE/LE exercises. Educational topics involving home safety, fall risk prevention, and floor transfers discussed. Pt introduced self appropriately, actively listened to peers and complete B UE/LE seated exercises. Pt acknowledged understanding by verbalizing understanding and giving personal stories. Pt participated in a cognitive word activity. After session, pt amb back to room and requested to use bathroom. Call light in hand as pt states she needs a minute, all needs met. Start Time: 13:00 Stop Time: 14:15 Total Billed Treatment Time: 75 Total Billed Treatment 1, GRP SUMANTH MARROQUIN EQUINE DENTIST Sep 06, 2021 14:40
[2021-09-06] MEDS: ACETAMINOPHEN 325 MG TABLET PO PRN ×2 (15:41→23:23)
[2021-09-06 19:58] VITALS: BP 135/61
[2021-09-06] MEDS: SIMvastatin 20 MG (ZOCOR) TAB PO SCH (20:32)
[2021-09-06] MEDS: LATANOPROST 0.005% (XALATAN) OPHTH SOLN 2.5 ML OU SCH (20:32)
--- NOTE | 2021-09-07 06:21 | PM&R Progress Note ---
Subjective HPI/CC On Admission Date Seen by Provider: Sep 07, 2021 Time Seen by Provider: 06:20 Subjective/Events-last exam 09/07/2021: Patient in a good mood Denies any new pain Right arm is much better Getting transfers better 09/06/21: Pt doing well No significant concerns Checked meds and labs No falls 09/05/2021: Patient doing well Had a good bowel movement today No major issues Ate a good breakfast 09/04/2021: Patient much improved Bowels moving Pain improved Transfers are better Motivated to go home 09/03/21: Patient doing well Right arm improved from IV infiltration Transferring better Wants to go home soon Omnicef completed BM regular 09/02/21: Patient doing very well WBC 14.7 Imodium ordered for loose stools Right arm IV infiltration improved Participating in therapy 09/01/21: Patient doing really well Tolerating pain with Tylenol only Lortab will be reserved before therapy Bowels are moving Voiding okay Dressing changes appear to be doing well 08/31/2021: Patient doing well Right arm from IV infiltration is sore so alternating between ice and K pad at the bedside Making progress in therapy 08/30/2021: Patient doing really well Working hard with therapy Pain is well controlled Last IV so changed antibiotic to p.o. Stopped last few doses of iron due to no IV access Pain is pretty well controlled Review of Systems Musculoskeletal: arm pain, leg pain Objective Exam Vital Signs Vital Signs Date Time Temp Pulse Resp B/P (MAP) Pulse Ox O2 Delivery O2 Flow Rate FiO2 09/07/21 09:25 Room Air 09/07/21 08:51 36.4 89 18 130/63 (85) 97 09/01/21 18:54 24 Capillary Refill : General Appearance: No Apparent Distress, WD/WN, Anxious, Chronically ill, Other (Fatigued and pale) HEENT: PERRL/EOMI, Normal ENT Inspection, Pharynx Normal Neck: Full Range of Motion, Normal Inspection, Non Tender, Supple, Carotid Bruit Respiratory: Chest Non Tender, Lungs Clear, Normal Breath Sounds, No Accessory Muscle Use, No Respiratory Distress, Decreased Breath Sounds Cardiovascular: Regular Rate, Rhythm, No Edema, No Gallop, No JVD, No Murmur, Normal Peripheral Pulses Gastrointestinal: Normal Bowel Sounds, No Organomegaly, No Pulsatile Mass, Non Tender, Soft Back: Normal Inspection, No CVA Tenderness, No Vertebral Tenderness Extremity: Normal Capillary Refill, Normal Inspection, Normal Range of Motion, Non Tender, No Calf Tenderness, No Pedal Edema Neurologic/Psychiatric: Alert, Oriented x3, No Motor/Sensory Deficits, restaurant and bar manager II- XII Norm as 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 FIM Transfers Therapy Code Descriptions/Definitions Functional [place] Measure: 0=Not Assessed/NA 4=Minimal Assistance 1=Total Assistance 5=Supervision or Setup 2=Maximal Assistance 6=Modified [place] 3=Moderate Assistance 7=Complete IndependenceSCALE: Activities may be completed with or without assistive devices. 7-Pxetypvjbw-hwhbkef completes the activity by him/herself with no assistance from a helper. 5-Set-up or Clean-up Assistance-helper sets up or cleans up; patient completes activity. [place] assists only prior to or following the activity. 4-Supervision or Touching Assistance-helper provides verbal cues and/or touching/steadying and/or contact guard assistance as patient completes activity. Assistance may be provided throughout the activity or intermittently. 3-Partial/Moderate Assistance-helper does LESS THAN HALF the effort. [place] lifts, holds or supports trunk or limbs, but provides less than half the effort. 2-Substantial/Maximal Assistance-helper does MORE THAN HALF the effort. [place] lifts or holds trunk or limbs and provides more than half the effort. 3-Lgybekzqw-lfnwwl does ALL the effort. Patient does none of the effort to complete the activity. Or, the assistance of 2 or more helpers is required for the patient to complete the activity. If activity was not attempted, code reason: 7-Patient Refused. 9-Not Applicable-not attempted and the patient did not perform the activity before the current illness, exacerbation or injury. 10-Not Attempted due to Environmental Limitations-(lack of equipment, weather restraints, etc.). 88-Not Attempted due to Medical Conditions or Safety Concerns. Roll Left to Right (QC): 3 Sit to Lying (QC): 4 Sit to Stand (QC): 3 Chair/Ypu-wl-Xligo Xfer(QC): 4 Car Transfer (QC): 88 Gait Training Does the Patient Walk?: Yes Distance: 150' Walk 10 feet (QC): 4 Walk 50 ft with 2 Turns(QC): 4 Walk 150 ft (QC): 4 Walking 10ft/uneven surface-QC: 88 Gait Persons Needed: 1 Gait Assistive Device: Walker Platform Wheelchair Training Does the Pt Use a Wheelchair?: Yes Distance: 100' Wheel 50 ft with 2 turns (QC): 4 Wheel 150 ft (QC): 4 Type of Wheelchair: Manual Stair Training 1 Step (curb) (QC): 88 4 Steps (QC): 88 12 Steps (QC): 88 Balance Picking up an Object (QC): 88 ADL-Treatment Eating (QC): 5 Oral Hygiene (QC): 4 (Supervision) Bathing Location: L Arm, R Arm, L Upper Leg, R Upper Leg, Chest, Abdomen, Perineal Area Shower/Bathe Self (QC): 3 Upper Body Dressing (QC): 3 Lower Body Dressing (QC): 1 (2 person assist) On/Off Footwear (QC): 5 Toileting Hygiene (QC): 3 Toilet Transfer (QC): 3 (Min A due to elevated surface) Assessment/Plan Assessment and Plan Assess & Plan/Chief Complaint Assessment: Left hip fracture Left wrist fracture Fall Postop pneumonia New onset atrial fibrillation with rapid ventricular response status post cardioversion unsuccessful and amiodarone drip x48 hours and spontaneously converted to normal sinus rhythm Oral anticoagulation for stroke prophylaxis Postop anemia Iron deficiency Hypothyroidism but low TSH placing patient at risk for atrial fibrillation so holding 25 mcg dose Depression situational type with decreased motivation IV infiltration right arm Plan: Monitor labs Iron supplement Oxygen Rehab protocol Cardiology appreciated Telemetry 08/30/2021: Supportive care Pain control Therapy regimen 08/31/2021: Transition to oral antibiotics K pad and ice to right arm 09/01/21: Monitor closely Pain control 09/02/21: Supportive care Kpad to right arm Imodium 09/03/21: Improved status Increase independence 09/04/2021: Continue pain control Aggressive therapy 09/05/2021: Continue meds Supportive care 09/06/21: DC planned for next week 09/07/2021: Supportive care Discharge plan soon (1) Hip fracture Status: Acute (2) Pneumonia (3) Anemia due to acute blood loss (4) Iron deficiency (5) Low TSH level (6) Afib (7) HLD (hyperlipidemia) (8) Essential (primary) hypertension (9) Hypothyroidism (10) Wrist fracture Status: Acute (11) Osteoporosis JENIFFER VAZ DO Sep 07, 2021 06:21
[2021-09-07] MEDS: CYANOCOBALAMIN 1,000 MCG (VITAMIN B-12) TABLET PO SCH (06:23)
[2021-09-07] MEDS: KCL 10 MEQ TAB (MICRO K) PO SCH (06:23)
[2021-09-07 08:51] VITALS: BP 130/63
[2021-09-07] MEDS: AMIODARONE 200 MG (CORDARONE) TAB PO SCH ×2 (08:53→21:32)
[2021-09-07] MEDS: APIXABAN 5 MG (ELIQUIS) TABLET PO SCH ×2 (08:53→21:32)
[2021-09-07] MEDS: CALCIUM CARB + VIT D 600 MG (CALCARB + D) TAB PO SCH (08:53)
[2021-09-07] MEDS: TIMOLOL MALEATE 0.5% 5 ML (TIMOPTIC) BTL OU SCH ×2 (08:53→21:31)
[2021-09-07] MEDS: PANTOPRAZOLE 40 MG (PROTONIX) TAB PO SCH (08:53)
[2021-09-07] MEDS: VITAMIN D3 125 MCG (5,000 UNITS) CAPSULE PO SCH (08:53)
--- NOTE | 2021-09-07 09:10 | Physical Therapy Daily Note ---
PT Daily Note-Current Subjective Pt in recliner upon arrival and agrees to tx. Pt states she feels she is improving every day. Mental Status Patient Orientation: Person, Place, Time, Situation Transfers SCALE: Activities may be completed with or without assistive devices. 8-Nqrmaabrlu-yknswth completes the activity by him/herself with no assistance from a helper. 5-Set-up or Clean-up Assistance-helper sets up or cleans up; patient completes activity. [place] assists only prior to or following the activity. 4-Supervision or Touching Assistance-helper provides verbal cues and/or touching/steadying and/or contact guard assistance as patient completes activi ty. Assistance may be provided throughout the activity or intermittently. 3-Partial/Moderate Assistance-helper does LESS THAN HALF the effort. [place] lifts, holds or supports trunk or limbs, but provides less than half the effort. 2-Substantial/Maximal Assistance-helper does MORE THAN HALF the effort. [place] lifts or holds trunk or limbs and provides more than half the effort. 9-Uijsdlwsb-cpxwml does ALL the effort. Patient does none of the effort to complete the activity. Or, the assistance of 2 or more helpers is required for the patient to complete the activity. If activity was not attempted, code reason: 7-Patient Refused. 9-Not Applicable-not attempted and the patient did not perform the activity before the current illness, exacerbation or injury. 10-Not Attempted due to Environmental Limitations-(lack of equipment, weather restraints, etc.). 88-Not Attempted due to Medical Conditions or Safety Concerns. Sit to Stand (QC): 3 Moisés Weight Bearing Left Lower Extremity: Left Weight Bearing/Tolerated NWB LUE but can bear weight on elbow Gait Training Does the Patient Walk?: Yes Distance: 150' Gait Assistive Device: Walker Platform Exercises Seated Therapy Exercises: Ankle pumps, Sit to stand, Long arc quads, Hip flexion Seated Reps: 10 Treatments Pt request to get changed upon arrival, PT A pt in donning pants and bra. Pt then sit to stand Moisés and amb 150' on ARU and returns to recliner in room. Pt completes seated exercise and was left with all needs met and call light in hand. Assessment Current Status: Good Progress Pt increasing in endurance, strength and mobility PT Short Term Goals Short Term Goals Time Frame: Sep 05, 2021 Roll Left & Right: 3 Sit to lyin Lying to sitting on side of be: 3 Sit to stand: 3 Chair/ffh-jb-ilosh transfer: 3 Walk 10 feet: 3 PT Senior Living Goals Senior Living Goals PT Senior Living Goals Time Frame: Sep 19, 2021 Roll Left & Right (QC): 3 (Moisés) Sit to Lying (QC): 3 (Moisés) Lying-Sitting on Side/Bed(QC): 3 (Moisés) Sit to Stand (QC): 3 (Moisés) Chair/Mdi-np-Xywog Xfer(QC): 3 (Moisés) Toilet Transfer (QC): 3 (Moisés) Car Transfer (QC): 3 (Moisés) Does the Patient Walk: Yes Walk 10 feet (QC): 3 (Moisés) Walk 50ft with 2 Turns (QC): 3 (Moisés) Walk 150 ft (QC): 88 Walking 10ft on Uneven Surface: 3 (Moisés) 1 Step (curb) (QC): 3 (Moisés) 4 Steps (QC): 88 12 Steps (QC): 88 Picking up an Object (QC): 88 Wheel 50 feet with 2 turns (QC: 5 Wheel 150 feet: 5 PT Plan Treatment/Plan Treatment Plan: Continue Plan of Care Treatment Plan: Bed Mobility, Education, Functional Activity Sheyla, Functional Strength, Group Therapy, Gait, Safety, Therapeutic Exercise, Transfers Treatment Duration: Sep 19, 2021 Frequency: At least 5 of 7 days/Wk (IRF) Estimated Hrs Per Day: 1.5 hours per day Patient and/or Family Agrees t: Yes Time/GCodes Time In: 754 Time Out: 806 Total Billed Treatment Time: 12 Total Billed Treatment 1, GT SUMANTH MARROQUIN GRISTMILL OPERATOR Sep 07, 2021 09:10
[2021-09-07] MEDS: polyethylene glycoL POWDER 17 GM (MIRALAX) PACK PO SCH ×2 (09:28→21:44)
[2021-09-07] MEDS: SENNA W/DOCUSATE (SENOKOT S) TABLET PO SCH ×2 (09:28→21:45)
[2021-09-07] MEDS: DOCUSATE SODIUM 100 MG (COLACE) CAP PO SCH ×2 (09:28→21:44)
[2021-09-07 20:01] VITALS: BP 110/68
[2021-09-07] MEDS: SIMvastatin 20 MG (ZOCOR) TAB PO SCH (21:31)
[2021-09-07] MEDS: LATANOPROST 0.005% (XALATAN) OPHTH SOLN 2.5 ML OU SCH (21:31)
[2021-09-07] MEDS: ACETAMINOPHEN 325 MG TABLET PO PRN (22:49)
[2021-09-08] MEDS: MELATONIN 3 MG TABLET PO PRN ×2 (02:14→21:45)
[2021-09-08] MEDS: HYDROcodone/APAP 5 MG/325 MG (LORTAB) TAB PO PRN ×2 (02:14→21:46)
--- NOTE | 2021-09-08 05:58 | PM&R Progress Note ---
Subjective HPI/CC On Admission Date Seen by Provider: Sep 08, 2021 Time Seen by Provider: 06:00 Subjective/Events-last exam 09/08/2021: Patient sleeping soundly Becomes alert without difficulty No pain is reported Working aggressively on transfers and ambulation Talked about her walkers 09/07/2021: Patient in a good mood Denies any new pain Right arm is much better Getting transfers better 09/06/21: Pt doing well No significant concerns Checked meds and labs No falls 09/05/2021: Patient doing well Had a good bowel movement today No major issues Ate a good breakfast 09/04/2021: Patient much improved Bowels moving Pain improved Transfers are better Motivated to go home 09/03/21: Patient doing well Right arm improved from IV infiltration Transferring better Wants to go home soon Omnicef completed BM regular 09/02/21: Patient doing very well WBC 14.7 Imodium ordered for loose stools Right arm IV infiltration improved Participating in therapy 09/01/21: Patient doing really well Tolerating pain with Tylenol only Lortab will be reserved before therapy Bowels are moving Voiding okay Dressing changes appear to be doing well 08/31/2021: Patient doing well Right arm from IV infiltration is sore so alternating between ice and K pad at the bedside Making progress in therapy 08/30/2021: Patient doing really well Working hard with therapy Pain is well controlled Last IV so changed antibiotic to p.o. Stopped last few doses of iron due to no IV access Pain is pretty well controlled Review of Systems General: Fatigue, Malaise Musculoskeletal: arm pain, leg pain Objective Exam Vital Signs Vital Signs Date Time Temp Pulse Resp B/P (MAP) Pulse Ox O2 Delivery O2 Flow Rate FiO2 09/08/21 08:23 Room Air 09/08/21 07:30 36.6 81 18 154/76 (102) 97 Capillary Refill : General Appearance: No Apparent Distress, WD/WN, Anxious, Chronically ill, Other (Fatigued and pale) HEENT: PERRL/EOMI, Normal ENT Inspection, Pharynx Normal Neck: Full Range of Motion, Normal Inspection, Non Tender, Supple, Carotid Bruit Respiratory: Chest Non Tender, Lungs Clear, Normal Breath Sounds, No Accessory Muscle Use, No Respiratory Distress, Decreased Breath Sounds Cardiovascular: Regular Rate, Rhythm, No Edema, No Gallop, No JVD, No Murmur, Normal Peripheral Pulses Gastrointestinal: Normal Bowel Sounds, No Organomegaly, No Pulsatile Mass, Non Tender, Soft Back: Normal Inspection, No CVA Tenderness, No Vertebral Tenderness Extremity: Normal Capillary Refill, Normal Inspection, Normal Range of Motion, Non Tender, No Calf Tenderness, No Pedal Edema Neurologic/Psychiatric: Alert, Oriented x3, No Motor/Sensory Deficits, lending consultant II- XII Norm as 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 FIM Transfers Therapy Code Descriptions/Definitions Functional [place] Measure: 0=Not Assessed/NA 4=Minimal Assistance 1=Total Assistance 5=Supervision or Setup 2=Maximal Assistance 6=Modified [place] 3=Moderate Assistance 7=Complete IndependenceSCALE: Activities may be completed with or without assistive devices. 7-Uaczzszbwo-pdrovfl completes the activity by him/herself with no assistance from a helper. 5-Set-up or Clean-up Assistance-helper sets up or cleans up; patient completes activity. [place] assists only prior to or following the activity. 4-Supervision or Touching Assistance-helper provides verbal cues and/or touching/steadying and/or contact guard assistance as patient completes activity. Assistance may be provided throughout the activity or intermittently. 3-Partial/Moderate Assistance-helper does LESS THAN HALF the effort. [place] lifts, holds or supports trunk or limbs, but provides less than half the effort. 2-Substantial/Maximal Assistance-helper does MORE THAN HALF the effort. [place] lifts or holds trunk or limbs and provides more than half the effort. 3-Gcnitgdsf-coddcq does ALL the effort. Patient does none of the effort to complete the activity. Or, the assistance of 2 or more helpers is required for the patient to complete the activity. If activity was not attempted, code reason: 7-Patient Refused. 9-Not Applicable-not attempted and the patient did not perform the activity before the current illness, exacerbation or injury. 10-Not Attempted due to Environmental Limitations-(lack of equipment, weather restraints, etc.). 88-Not Attempted due to Medical Conditions or Safety Concerns. Roll Left to Right (QC): 3 Sit to Lying (QC): 4 Sit to Stand (QC): 3 Chair/Zal-fp-Xeggs Xfer(QC): 4 Car Transfer (QC): 88 Gait Training Does the Patient Walk?: Yes Distance: 150' Walk 10 feet (QC): 4 Walk 50 ft with 2 Turns(QC): 4 Walk 150 ft (QC): 4 Walking 10ft/uneven surface-QC: 88 Gait Persons Needed: 1 Gait Assistive Device: Walker Platform Wheelchair Training Does the Pt Use a Wheelchair?: Yes Distance: 100' Wheel 50 ft with 2 turns (QC): 4 Wheel 150 ft (QC): 4 Type of Wheelchair: Manual Stair Training 1 Step (curb) (QC): 88 4 Steps (QC): 88 12 Steps (QC): 88 Balance Picking up an Object (QC): 88 ADL-Treatment Eating (QC): 5 Oral Hygiene (QC): 4 (Supervision) Bathing Location: L Arm, R Arm, L Upper Leg, R Upper Leg, Chest, Abdomen, Perineal Area Shower/Bathe Self (QC): 3 Upper Body Dressing (QC): 3 Lower Body Dressing (QC): 1 (2 person assist) On/Off Footwear (QC): 5 Toileting Hygiene (QC): 3 Toilet Transfer (QC): 3 (Min A due to elevated surface) Assessment/Plan Assessment and Plan Assess & Plan/Chief Complaint Assessment: Left hip fracture Left wrist fracture Fall Postop pneumonia New onset atrial fibrillation with rapid ventricular response status post cardioversion unsuccessful and amiodarone drip x48 hours and spontaneously converted to normal sinus rhythm Oral anticoagulation for stroke prophylaxis Postop anemia Iron deficiency Hypothyroidism but low TSH placing patient at risk for atrial fibrillation so holding 25 mcg dose Depression situational type with decreased motivation IV infiltration right arm Plan: Monitor labs Iron supplement Oxygen Rehab protocol Cardiology appreciated Telemetry 08/30/2021: Supportive care Pain control Therapy regimen 08/31/2021: Transition to oral antibiotics K pad and ice to right arm 09/01/21: Monitor closely Pain control 09/02/21: Supportive care Kpad to right arm Imodium 09/03/21: Improved status Increase independence 09/04/2021: Continue pain control Aggressive therapy 09/05/2021: Continue meds Supportive care 09/06/21: DC planned for next week 09/07/2021: Supportive care Discharge plan soon 09/08/2021: Dramatic improvement since admit Monitor closely (1) Hip fracture Status: Acute (2) Pneumonia (3) Anemia due to acute blood loss (4) Iron deficiency (5) Low TSH level (6) Afib (7) HLD (hyperlipidemia) (8) Essential (primary) hypertension (9) Hypothyroidism (10) Wrist fracture Status: Acute (11) Osteoporosis JENIFFER VAZ DO Sep 08, 2021 05:58
[2021-09-08] MEDS: CYANOCOBALAMIN 1,000 MCG (VITAMIN B-12) TABLET PO SCH (06:31)
[2021-09-08] MEDS: KCL 10 MEQ TAB (MICRO K) PO SCH (06:31)
[2021-09-08 07:30] VITALS: BP 154/76
[2021-09-08] MEDS: CALCIUM CARB + VIT D 600 MG (CALCARB + D) TAB PO SCH (07:39)
[2021-09-08] MEDS: PANTOPRAZOLE 40 MG (PROTONIX) TAB PO SCH (07:39)
[2021-09-08] MEDS: APIXABAN 5 MG (ELIQUIS) TABLET PO SCH ×2 (07:39→21:45)
[2021-09-08] MEDS: VITAMIN D3 125 MCG (5,000 UNITS) CAPSULE PO SCH (07:40)
[2021-09-08] MEDS: AMIODARONE 200 MG (CORDARONE) TAB PO SCH (07:40)
[2021-09-08] MEDS: TIMOLOL MALEATE 0.5% 5 ML (TIMOPTIC) BTL OU SCH ×2 (07:41→21:46)
[2021-09-08] MEDS: polyethylene glycoL POWDER 17 GM (MIRALAX) PACK PO SCH ×2 (08:22→21:30)
[2021-09-08] MEDS: DOCUSATE SODIUM 100 MG (COLACE) CAP PO SCH ×2 (08:22→21:30)
[2021-09-08] MEDS: SENNA W/DOCUSATE (SENOKOT S) TABLET PO SCH ×2 (08:22→21:30)
[2021-09-08] MEDS: SIMvastatin 20 MG (ZOCOR) TAB PO SCH (21:45)
[2021-09-08] MEDS: LATANOPROST 0.005% (XALATAN) OPHTH SOLN 2.5 ML OU SCH (21:46)
[2021-09-09 06:41] LABS: BASOPHILS % (AUTO) 0 % (0-10); EOSINOPHILS # (AUTO) 0.1 10^3/uL (0.0-0.3); EOSINOPHILS % (AUTO) 1 % (0-10); HEMATOCRIT 29 % (35-52); LYMPHOCYTES # (AUTO) 2.1 10^3/uL (1.0-4.0); LYMPHOCYTES % (AUTO) 23 % (12-44); MEAN CORPUSCULAR HEMOGLOBIN 30 pg (25-34); MEAN CORPUSCULAR HGB CONC 31 g/dL (32-36); MEAN CORPUSCULAR VOLUME 97 fL (80-99); MEAN PLATELET VOLUME 8.4 fL (9.0-12.2); MONOCYTES # (AUTO) 0.7 10^3/uL (0.0-1.0); MONOCYTES % (AUTO) 8 % (0-12); NEUTROPHILS # (AUTO) 6.2 10^3/uL (1.8-7.8); NEUTROPHILS % (AUTO) 68 % (42-75); PLATELET COUNT 546 10^3/uL (130-400); WHITE BLOOD COUNT 9.1 10^3/uL (4.3-11.0)
[2021-09-09] MEDS: CYANOCOBALAMIN 1,000 MCG (VITAMIN B-12) TABLET PO SCH (06:43)
[2021-09-09] MEDS: KCL 10 MEQ TAB (MICRO K) PO SCH (06:43)
[2021-09-09 06:55] LABS: ALBUMIN 3.3 GM/DL (3.2-4.5); POTASSIUM 4.6 MMOL/L (3.6-5.0)
[2021-09-09 06:56] LABS: CALCIUM 8.7 MG/DL (8.5-10.1)
[2021-09-09 06:59] LABS: BILIRUBIN,TOTAL 0.5 MG/DL (0.1-1.0)
[2021-09-09 07:01] LABS: CREATININE SERUM 0.78 MG/DL (0.60-1.30)
[2021-09-09 07:27] VITALS: BP 168/72
[2021-09-09] MEDS: VITAMIN D3 125 MCG (5,000 UNITS) CAPSULE PO SCH (08:16)
[2021-09-09] MEDS: TIMOLOL MALEATE 0.5% 5 ML (TIMOPTIC) BTL OU SCH ×2 (08:16→20:50)
[2021-09-09] MEDS: APIXABAN 5 MG (ELIQUIS) TABLET PO SCH ×2 (08:17→20:25)
[2021-09-09] MEDS: PANTOPRAZOLE 40 MG (PROTONIX) TAB PO SCH (08:17)
[2021-09-09] MEDS: AMIODARONE 200 MG (CORDARONE) TAB PO SCH (08:17)
[2021-09-09] MEDS: CALCIUM CARB + VIT D 600 MG (CALCARB + D) TAB PO SCH (08:17)
[2021-09-09] MEDS: HYDROcodone/APAP 5 MG/325 MG (LORTAB) TAB PO PRN ×2 (08:20→13:14)
--- NOTE | 2021-09-09 09:24 | Occupational Ther Daily Note ---
OT Current Status-Daily Note Subjective Pt alert, sitting in recliner. Pt agrees to therapy. No c/o pain. Mental Status/Objective Patient Orientation: Person, Place, Time, Situation Attachments: Other-See Comments (cast, cochlear implant R ear) ADL-Treatment 1st session()Pt agrees to shower. Pt ambulates with CGA for safety using platform FWW to bathroom. CGA for transfer to toilet with BSC over to increase height. Pt able to manipulate clothing with SBA and cleanses self sitting on toilet by self. Pt transferred into shower with CGA. Sitting on shower bench, pt able to cleanse all areas except buttocks using grabbars, LH sponge and hand held shower. Pt stabilized self with grabbars in standing while HERNÁNDEZ assisted to cleanse buttocks. Pt able to don/doff shirt by self, assist to hook/unhook bra. After set up, pt able to use pin worker to thread feet into pants/briefs, pull up legs and assist in standing to hike pants over hips. After set up, pt able to don socks with sock aide. Min A for EOB to supine with L LE. After session, pt lying in bed with call light/phone in reach. All needs met in room. Therapy Code Descriptions/Definitions Functional [place] Measure: 0=Not Assessed/NA 4=Minimal Assistance 1=Total Assistance 5=Supervision or Setup 2=Maximal Assistance 6=Modified [place] 3=Moderate Assistance 7=Complete IndependenceSCALE: Activities may be completed with or without assistive devices. 3-Tufmhsttji-dfthwlb completes the activity by him/herself with no assistance from a helper. 5-Set-up or Clean-up Assistance-helper sets up or cleans up; patient completes activity. [place] assists only prior to or following the activity. 4-Supervision or Touching Assistance-helper provides verbal cues and/or touching/steadying and/or contact guard assistance as patient completes act ivity. Assistance may be provided throughout the activity or intermittently. 3-Partial/Moderate Assistance-helper does LESS THAN HALF the effort. [place] lifts, holds or supports trunk or limbs, but provides less than half the effort. 2-Substantial/Maximal Assistance-helper does MORE THAN HALF the effort. [place] lifts or holds trunk or limbs and provides more than half the effort. 5-Rebynsqej-etieds does ALL the effort. Patient does none of the effort to complete the activity. Or, the assistance of 2 or more helpers is required for the patient to complete the activity. If activity was not attempted, code reason: 7-Patient Refused. 9-Not Applicable-not attempted and the patient did not perform the activity before the current illness, exacerbation or injury. 10-Not Attempted due to Environmental Limitations-(lack of equipment, weather restraints, etc.). 88-Not Attempted due to Medical Conditions or Safety Concerns. Oral Hygiene (QC): 5 (completes with ) Bathing Location: L Arm, R Arm, L Upper Leg, R Upper Leg, L Lower Leg (including foot), R Lower Leg (including foot), Chest, Abdomen, Perineal Area Shower/Bathe Self (QC): 3 Upper Body Dressing (QC): 3 Lower Body Dressing (QC): 3 On/Off Footwear: 5 Toileting Hygiene (QC): 4 Toilet Transfer (QC): 4 Other Treatment 2nd session([id number]): Pt ambulated to <--> from gym/room using platform FWW with close SBA. Pt stood at parallel bars to stabilize while reaching behind back to take off clothespins from bottom of shirt, 2x's each hand. No LOB noted, recovery break after each time. After session, pt sitting in recliner with call light/phone in reach. All needs met in room. OT Short Term Goals Short Term Goals Time Frame: Sep 12, 2021 Eatin Oral hygiene: 3 Toileting hygiene: 2 Shower/bathe self: 3 Upper body dressin Lower body dressin Putting on/taking off footwear: 3 OT Second Shift Supervisor Goals Second Shift Supervisor Goals Time Frame: Sep 26, 2021 Eating (QC): 6 Oral Hygiene (QC): 5 Toileting Hygiene (QC): 4 Shower/Bathe Self (QC): 4 Upper Body Dressing (QC): 4 Lower Body Dressing (QC): 4 On/Off Footwear (QC): 4 1=Demonstrate adherence to instructed precautions during ADL tasks. 2=Patient will verbalize/demonstrate understanding of assistive devices/modifications for ADL. 3=Patient will improve strength/tolerance for activity to enable patient to p erform ADL's. OT Education/Plan Problem List/Assessment Assessment: Decreased UE Strength, Impaired Self-Care Skills, Restricted Funct UE ROM Discharge Recommendations Plan/Recommendations: Continue POC Treatment Plan/Plan of Care Patient would benefit from OT for education, treatment and training to promote independence in ADL's, mobility, safety and/or upper extremity function for ADL's. Plan of Care: ADL Retraining, Functional Mobility, Group Exercise/Act as Ind, UE Funct Exercise/Act, W/C Management Training Treatment Duration: Sep 26, 2021 Frequency: At least 5 of 7 days/Wk (IRF) Estimated Hrs Per Day: 1.5 hours per day Agreement: Yes Rehab Potential: Fair Time/GCodes Start Time: 08:30 (1330) Stop Time: 09:30 (1400) Total Time Billed (hr/min): 90 Billed Treatment Time 1 visit([id number])-ADL 4 (60 min) 1 visit(3747-4177)-FA 2 (30 min) DALILA HERCULES Sep 09, 2021 09:24
[2021-09-09] MEDS: DOCUSATE SODIUM 100 MG (COLACE) CAP PO SCH ×2 (09:54→20:30)
[2021-09-09] MEDS: SENNA W/DOCUSATE (SENOKOT S) TABLET PO SCH ×2 (09:54→21:00)
[2021-09-09] MEDS: polyethylene glycoL POWDER 17 GM (MIRALAX) PACK PO SCH ×2 (09:54→21:00)
--- NOTE | 2021-09-09 10:30 | PM&R Progress Note ---
Subjective HPI/CC On Admission Date Seen by Provider: Sep 09, 2021 Time Seen by Provider: 10:30 Subjective/Events-last exam 09/09/2021: Pt doing well Wants to go home soon Bowels are moving BP is elevated at 160s No Ensure is required anymore and she doesnt like it anyway 09/08/2021: Patient sleeping soundly Becomes alert without difficulty No pain is reported Working aggressively on transfers and ambulation Talked about her walkers 09/07/2021: Patient in a good mood Denies any new pain Right arm is much better Getting transfers better 09/06/21: Pt doing well No significant concerns Checked meds and labs No falls 09/05/2021: Patient doing well Had a good bowel movement today No major issues Ate a good breakfast 09/04/2021: Patient much improved Bowels moving Pain improved Transfers are better Motivated to go home 09/03/21: Patient doing well Right arm improved from IV infiltration Transferring better Wants to go home soon Omnicef completed BM regular 09/02/21: Patient doing very well WBC 14.7 Imodium ordered for loose stools Right arm IV infiltration improved Participating in therapy 09/01/21: Patient doing really well Tolerating pain with Tylenol only Lortab will be reserved before therapy Bowels are moving Voiding okay Dressing changes appear to be doing well 08/31/2021: Patient doing well Right arm from IV infiltration is sore so alternating between ice and K pad at the bedside Making progress in therapy 08/30/2021: Patient doing really well Working hard with therapy Pain is well controlled Last IV so changed antibiotic to p.o. Stopped last few doses of iron due to no IV access Pain is pretty well controlled Review of Systems General: Fatigue, Malaise Objective Exam Vital Signs Vital Signs Date Time Temp Pulse Resp B/P (MAP) Pulse Ox O2 Delivery O2 Flow Rate FiO2 09/09/21 20:00 99 Room Air 09/09/21 19:45 36.4 74 16 119/64 (82) Capillary Refill : General Appearance: No Apparent Distress, WD/WN, Anxious, Chronically ill, Other (Fatigued and pale) HEENT: PERRL/EOMI, Normal ENT Inspection, Pharynx Normal Neck: Full Range of Motion, Normal Inspection, Non Tender, Supple, Carotid Bruit Respiratory: Chest Non Tender, Lungs Clear, Normal Breath Sounds, No Accessory Muscle Use, No Respiratory Distress, Decreased Breath Sounds Cardiovascular: Regular Rate, Rhythm, No Edema, No Gallop, No JVD, No Murmur, Normal Peripheral Pulses Gastrointestinal: Normal Bowel Sounds, No Organomegaly, No Pulsatile Mass, Non Tender, Soft Back: Normal Inspection, No CVA Tenderness, No Vertebral Tenderness Extremity: Normal Capillary Refill, Normal Inspection, Normal Range of Motion, Non Tender, No Calf Tenderness, No Pedal Edema Neurologic/Psychiatric: Alert, Oriented x3, No Motor/Sensory Deficits, health data administrator II- XII Norm as Tested, Depressed Affect, Motor Weakness (Generalized 3/5 but left leg 1/5) Skin: Normal Color, Warm/Dry Lymphatic: No Adenopathy Results/Procedures Lab Laboratory Tests 09/09/21 06:13 Patient resulted labs reviewed. FIM Transfers Therapy Code Descriptions/Definitions Functional [place] Measure: 0=Not Assessed/NA 4=Minimal Assistance 1=Total Assistance 5=Supervision or Setup 2=Maximal Assistance 6=Modified [place] 3=Moderate Assistance 7=Complete IndependenceSCALE: Activities may be completed with or without assistive devices. 0-Yobpkmrnvl-ygwmonn completes the activity by him/herself with no assistance from a helper. 5-Set-up or Clean-up Assistance-helper sets up or cleans up; patient completes activity. [place] assists only prior to or following the activity. 4-Supervision or Touching Assistance-helper provides verbal cues and/or touching/steadying and/or contact guard assistance as patient completes activity. Assistance may be provided throughout the activity or intermittently. 3-Partial/Moderate Assistance-helper does LESS THAN HALF the effort. [place] lifts, holds or supports trunk or limbs, but provides less than half the effort. 2-Substantial/Maximal Assistance-helper does MORE THAN HALF the effort. [place] lifts or holds trunk or limbs and provides more than half the effort. 1-Silxsitbc-hntdqu does ALL the effort. Patient does none of the effort to complete the activity. Or, the assistance of 2 or more helpers is required for the patient to complete the activity. If activity was not attempted, code reason: 7-Patient Refused. 9-Not Applicable-not attempted and the patient did not perform the activity before the current illness, exacerbation or injury. 10-Not Attempted due to Environmental Limitations-(lack of equipment, weather restraints, etc.). 88-Not Attempted due to Medical Conditions or Safety Concerns. Roll Left to Right (QC): 3 Sit to Lying (QC): 4 Sit to Stand (QC): 3 Chair/Fdb-jt-Edwat Xfer(QC): 4 Car Transfer (QC): 88 Gait Training Does the Patient Walk?: Yes Distance: 150' Walk 10 feet (QC): 4 Walk 50 ft with 2 Turns(QC): 4 Walk 150 ft (QC): 4 Walking 10ft/uneven surface-QC: 88 Gait Persons Needed: 1 Gait Assistive Device: Walker Platform Wheelchair Training Does the Pt Use a Wheelchair?: Yes Distance: 100' Wheel 50 ft with 2 turns (QC): 4 Wheel 150 ft (QC): 4 Type of Wheelchair: Manual Stair Training 1 Step (curb) (QC): 88 4 Steps (QC): 88 12 Steps (QC): 88 Balance Picking up an Object (QC): 88 ADL-Treatment Eating (QC): 5 Oral Hygiene (QC): 5 (completes with ) Bathing Location: L Arm, R Arm, L Upper Leg, R Upper Leg, L Lower Leg (including foot), R Lower Leg (including foot), Chest, Abdomen, Perineal Area Shower/Bathe Self (QC): 3 Upper Body Dressing (QC): 3 Lower Body Dressing (QC): 3 On/Off Footwear (QC): 5 Toileting Hygiene (QC): 4 Toilet Transfer (QC): 4 Assessment/Plan Assessment and Plan Assess & Plan/Chief Complaint Assessment: Left hip fracture Left wrist fracture Fall Postop pneumonia New onset atrial fibrillation with rapid ventricular response status post cardioversion unsuccessful and amiodarone drip x48 hours and spontaneously converted to normal sinus rhythm Oral anticoagulation for stroke prophylaxis Postop anemia Iron deficiency Hypothyroidism but low TSH placing patient at risk for atrial fibrillation so holding 25 mcg dose Depression situational type with decreased motivation IV infiltration right arm Plan: Monitor labs Iron supplement Oxygen Rehab protocol Cardiology appreciated Telemetry 08/30/2021: Supportive care Pain control Therapy regimen 08/31/2021: Transition to oral antibiotics K pad and ice to right arm 09/01/21: Monitor closely Pain control 09/02/21: Supportive care Kpad to right arm Imodium 09/03/21: Improved status Increase independence 09/04/2021: Continue pain control Aggressive therapy 09/05/2021: Continue meds Supportive care 09/06/21: DC planned for next week 09/07/2021: Supportive care Discharge plan soon 09/08/2021: Dramatic improvement since admit Monitor closely 09/09/2021: Supportive care Discharge soon (1) Hip fracture Status: Acute (2) Pneumonia (3) Anemia due to acute blood loss (4) Iron deficiency (5) Low TSH level (6) Afib (7) HLD (hyperlipidemia) (8) Essential (primary) hypertension (9) Hypothyroidism (10) Wrist fracture Status: Acute (11) Osteoporosis JENIFFER VAZ DO Sep 09, 2021 10:30
--- NOTE | 2021-09-09 11:48 | Physical Therapy Daily Note ---
PT Daily Note-Current Subjective Patient in bed pre tx, agrees to PT, has 3/10 pain in left hip. Appearance Patient in recliner post tx with nurse call, phone, tray, all needs met. Mental Status Patient Orientation: Person, Place, Situation Transfers SCALE: Activities may be completed with or without assistive devices. 7-Vpufcdnuxp-ffyvbtc completes the activity by him/herself with no assistance from a helper. 5-Set-up or Clean-up Assistance-helper sets up or cleans up; patient completes activity. [place] assists only prior to or following the activity. 4-Supervision or Touching Assistance-helper provides verbal cues and/or touching /steadying and/or contact guard assistance as patient completes activity. Assistance may be provided throughout the activity or intermittently. 3-Partial/Moderate Assistance-helper does LESS THAN HALF the effort. [place] lifts, holds or supports trunk or limbs, but provides less than half the effort. 2-Substantial/Maximal Assistance-helper does MORE THAN HALF the effort. [place] lifts or holds trunk or limbs and provides more than half the effort. 5-Vjkeuipwd-qwailr does ALL the effort. Patient does none of the effort to complete the activity. Or, the assistance of 2 or more helpers is required for the patient to complete the activity. If activity was not attempted, code reason: 7-Patient Refused. 9-Not Applicable-not attempted and the patient did not perform the activity before the current illness, exacerbation or injury. 10-Not Attempted due to Environmental Limitations-(lack of equipment, weather restraints, etc.). 88-Not Attempted due to Medical Conditions or Safety Concerns. Roll Left & Right (QC): 6 Lying to Sitting/Side of Bed(Q: 6 Sit to Stand (QC): 3 Chair/Lfb-mq-Adqot Xfer(QC): 4 Patient needs min assist to stand from lower surfaces, cues for hand placement Weight Bearing Left Lower Extremity: Left Weight Bearing/Tolerated NWB LUE but can bear weight on elbow Gait Training Distance: 120'x2 Walk 10 feet (QC): 4 Walk 50 ft with 2 Turns(QC): 4 Gait Persons Needed: 1 Gait Assistive Device: Walker Platform slow ambulation, antalgic, better step through Stair Training Stair Training: Handrails/: uses walker #of Steps: 1 1 Step (curb) (QC): 4 Stairs: Pattern: Step to CGA, cues for step placement Exercises Seated Therapy Exercises: Ankle pumps, Hip abd/add (with ball and RTB) Standing: Heel/toe raises, Marching, Mini squats Standing Reps: 15 LAQ alternating for 5 min with 2# ankle weight on left side NuStep Minutes: 15 NuStep Workload: 5 Treatments bed mobility and transfers, ambulation stair training, gait training, functional strengthening Assessment Current Status: Fair Progress improving functional mobility PT Short Term Goals Short Term Goals Time Frame: Sep 05, 2021 Roll Left & Right: 3 Sit to lyin Lying to sitting on side of be: 3 Sit to stand: 3 Chair/ouo-fx-xkhrm transfer: 3 Walk 10 feet: 3 PT Assisted Goals Assisted Goals PT Sports Medicine Coordinator Goals Time Frame: Sep 19, 2021 Roll Left & Right (QC): 3 (Moisés) Sit to Lying (QC): 3 (Moisés) Lying-Sitting on Side/Bed(QC): 3 (Moisés) Sit to Stand (QC): 3 (Moisés) Chair/Yqc-ie-Jjpgf Xfer(QC): 3 (Moisés) Toilet Transfer (QC): 3 (Moisés) Car Transfer (QC): 3 (Moisés) Does the Patient Walk: Yes Walk 10 feet (QC): 3 (Moisés) Walk 50ft with 2 Turns (QC): 3 (Moisés) Walk 150 ft (QC): 88 Walking 10ft on Uneven Surface: 3 (Moisés) 1 Step (curb) (QC): 3 (Moisés) 4 Steps (QC): 88 12 Steps (QC): 88 Picking up an Object (QC): 88 Wheel 50 feet with 2 turns (QC: 5 Wheel 150 feet: 5 PT Plan Problem List Problem List: Activity Tolerance, Functional Strength, Safety, Balance, Gait, Transfer, Bed Mobility, ROM Treatment/Plan Treatment Plan: Continue Plan of Care Treatment Plan: Bed Mobility, Education, Functional Activity Sheyla, Functional Strength, Group Therapy, Gait, Safety, Therapeutic Exercise, Transfers Treatment Duration: Sep 19, 2021 Frequency: At least 5 of 7 days/Wk (IRF) Estimated Hrs Per Day: 1.5 hours per day Patient and/or Family Agrees t: Yes Safety Risks/Education Patient Education: Gait Training, Transfer Techniques, Steps, Correct Positioning, Safety Issues Teaching Recipient: Patient Teaching Methods: Demonstration, Discussion Response to Teaching: Reinforcement Needed Time/GCodes Time In: 1100 Time Out: 1200 Total Billed Treatment Time: 60 Total Billed Treatment 1 visit EX 40' FA 20' LOLLY BOND PT Sep 09, 2021 11:48
--- NOTE | 2021-09-09 14:52 | Physical Therapy Daily Note ---
PT Daily Note-Current Subjective Patient in recliner pre tx, agrees to PT, voices no complaints of pain. Appearance Patient in recliner post tx with nurse call, phone, tray, all needs met. Mental Status Patient Orientation: Person, Place, Situation Transfers SCALE: Activities may be completed with or without assistive devices. 6-Aphwhsgapz-yjfihyu completes the activity by him/herself with no assistance from a helper. 5-Set-up or Clean-up Assistance-helper sets up or cleans up; patient completes activity. [place] assists only prior to or following the activity. 4-Supervision or Touching Assistance-helper provides verbal cues and/or touching/steadying and/or contact guard assistance as patient completes activity. Assistance may be provided throughout the activity or intermittently. 3-Partial/Moderate Assistance-helper does LESS THAN HALF the effort. [place] lifts, holds or supports trunk or limbs, but provides less than half the effort. 2-Substantial/Maximal Assistance-helper does MORE THAN HALF the effort. [place] lifts or holds trunk or limbs and provides more than half the effort. 5-Hvrujagrm-pmmtqn does ALL the effort. Patient does none of the effort to complete the activity. Or, the assistance of 2 or more helpers is required for the patient to complete the activity. If activity was not attempted, code reason: 7-Patient Refused. 9-Not Applicable-not attempted and the patient did not perform the activity before the current illness, exacerbation or injury. 10-Not Attempted due to Environmental Limitations-(lack of equipment, weather restraints, etc.). 88-Not Attempted due to Medical Conditions or Safety Concerns. Sit to Stand (QC): 4 Chair/Kfa-zv-Iiaup Xfer(QC): 4 Weight Bearing Left Lower Extremity: Left Weight Bearing/Tolerated NWB LUE but can bear weight on elbow Gait Training Distance: 120'x2, 100' Walk 10 feet (QC): 4 Walk 50 ft with 2 Turns(QC): 4 Gait Persons Needed: 1 Gait Assistive Device: Walker Platform slow ambulation, better step-through, antalgic Treatments transfers, ambulation Assessment Current Status: Fair Progress 1 visit GT 30' PT Short Term Goals Short Term Goals Time Frame: Sep 05, 2021 Roll Left & Right: 3 Sit to lyin Lying to sitting on side of be: 3 Sit to stand: 3 Chair/zvz-hq-bjjkl transfer: 3 Walk 10 feet: 3 PT Chcf Goals Chcf Goals PT Chcf Goals Time Frame: Sep 19, 2021 Roll Left & Right (QC): 3 (Moisés) Sit to Lying (QC): 3 (Moisés) Lying-Sitting on Side/Bed(QC): 3 (Moisés) Sit to Stand (QC): 3 (Moisés) Chair/Pwr-eh-Jiqyq Xfer(QC): 3 (Moisés) Toilet Transfer (QC): 3 (Moisés) Car Transfer (QC): 3 (Moisés) Does the Patient Walk: Yes Walk 10 feet (QC): 3 (Moisés) Walk 50ft with 2 Turns (QC): 3 (Moisés) Walk 150 ft (QC): 88 Walking 10ft on Uneven Surface: 3 (Moisés) 1 Step (curb) (QC): 3 (Moisés) 4 Steps (QC): 88 12 Steps (QC): 88 Picking up an Object (QC): 88 Wheel 50 feet with 2 turns (QC: 5 Wheel 150 feet: 5 PT Plan Problem List Problem List: Activity Tolerance, Functional Strength, Safety, Balance, Gait, Transfer, Bed Mobility, ROM Treatment/Plan Treatment Plan: Continue Plan of Care Treatment Plan: Bed Mobility, Education, Functional Activity [place], Functional Strength, Group Therapy, Gait, Safety, Therapeutic Exercise, Transfers Treatment Duration: Sep 19, 2021 Frequency: At least 5 of 7 days/Wk (IRF) Estimated Hrs Per Day: 1.5 hours per day Patient and/or Family Agrees t: Yes Safety Risks/Education Patient Education: Gait Training, Transfer Techniques, Correct Positioning, Safety Issues Teaching Recipient: Patient Teaching Methods: Demonstration, Discussion Response to Teaching: Reinforcement Needed Time/GCodes Time In: 1430 Time Out: 1500 Total Billed Treatment Time: 30 Total Billed Treatment 1 visit GT 30' LOLLY BOND PT Sep 09, 2021 14:52
[2021-09-09 19:45] VITALS: BP 119/64
[2021-09-09] MEDS: SIMvastatin 20 MG (ZOCOR) TAB PO SCH (20:25)
[2021-09-09] MEDS: MELATONIN 3 MG TABLET PO PRN (20:25)
[2021-09-09] MEDS: LATANOPROST 0.005% (XALATAN) OPHTH SOLN 2.5 ML OU SCH (20:50)
[2021-09-10] MEDS: CYANOCOBALAMIN 1,000 MCG (VITAMIN B-12) TABLET PO SCH (06:24)
[2021-09-10] MEDS: KCL 10 MEQ TAB (MICRO K) PO SCH (06:25)
--- NOTE | 2021-09-10 07:21 | PM&R Progress Note ---
Subjective HPI/CC On Admission Date Seen by Provider: Sep 10, 2021 Time Seen by Provider: 10:00 Subjective/Events-last exam 09/10/2021: Patient doing well No major issues Thursday discharge Continues aggressive therapy 09/09/2021: Pt doing well Wants to go home soon Bowels are moving BP is elevated at 160s No Ensure is required anymore and she doesnt like it anyway 09/08/2021: Patient sleeping soundly Becomes alert without difficulty No pain is reported Working aggressively on transfers and ambulation Talked about her walkers 09/07/2021: Patient in a good mood Denies any new pain Right arm is much better Getting transfers better 09/06/21: Pt doing well No significant concerns Checked meds and labs No falls 09/05/2021: Patient doing well Had a good bowel movement today No major issues Ate a good breakfast 09/04/2021: Patient much improved Bowels moving Pain improved Transfers are better Motivated to go home 09/03/21: Patient doing well Right arm improved from IV infiltration Transferring better Wants to go home soon Omnicef completed BM regular 09/02/21: Patient doing very well WBC 14.7 Imodium ordered for loose stools Right arm IV infiltration improved Participating in therapy 09/01/21: Patient doing really well Tolerating pain with Tylenol only Lortab will be reserved before therapy Bowels are moving Voiding okay Dressing changes appear to be doing well 08/31/2021: Patient doing well Right arm from IV infiltration is sore so alternating between ice and K pad at the bedside Making progress in therapy 08/30/2021: Patient doing really well Working hard with therapy Pain is well controlled Last IV so changed antibiotic to p.o. Stopped last few doses of iron due to no IV access Pain is pretty well controlled Review of Systems General: Fatigue, Malaise Musculoskeletal: arm pain, leg pain Objective Exam Vital Signs Vital Signs Date Time Temp Pulse Resp B/P (MAP) Pulse Ox O2 Delivery O2 Flow Rate FiO2 09/10/21 20:55 Room Air 09/10/21 19:41 36.8 80 18 123/69 (87) 98 Capillary Refill : General Appearance: No Apparent Distress, WD/WN, Anxious, Chronically ill, Other (Fatigued and pale) HEENT: PERRL/EOMI, Normal ENT Inspection, Pharynx Normal Neck: Full Range of Motion, Normal Inspection, Non Tender, Supple, Carotid Bruit Respiratory: Chest Non Tender, Lungs Clear, Normal Breath Sounds, No Accessory Muscle Use, No Respiratory Distress, Decreased Breath Sounds Cardiovascular: Regular Rate, Rhythm, No Edema, No Gallop, No JVD, No Murmur, Normal Peripheral Pulses Gastrointestinal: Normal Bowel Sounds, No Organomegaly, No Pulsatile Mass, Non Tender, Soft Back: Normal Inspection, No CVA Tenderness, No Vertebral Tenderness Extremity: Normal Capillary Refill, Normal Inspection, Normal Range of Motion, Non Tender, No Calf Tenderness, No Pedal Edema Neurologic/Psychiatric: Alert, Oriented x3, No Motor/Sensory Deficits, extension agent II- XII Norm as 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 FIM Transfers Therapy Code Descriptions/Definitions Functional [place] Measure: 0=Not Assessed/NA 4=Minimal Assistance 1=Total Assistance 5=Supervision or Setup 2=Maximal Assistance 6=Modified [place] 3=Moderate Assistance 7=Complete IndependenceSCALE: Activities may be completed with or without assistive devices. 5-Luphfskslt-irytgyb completes the activity by him/herself with no assistance from a helper. 5-Set-up or Clean-up Assistance-helper sets up or cleans up; patient completes activity. [place] assists only prior to or following the activity. 4-Supervision or Touching Assistance-helper provides verbal cues and/or touching/steadying and/or contact guard assistance as patient completes activity. Assistance may be provided throughout the activity or intermittently. 3-Partial/Moderate Assistance-helper does LESS THAN HALF the effort. [place] lifts, holds or supports trunk or limbs, but provides less than half the effort. 2-Substantial/Maximal Assistance-helper does MORE THAN HALF the effort. [place] lifts or holds trunk or limbs and provides more than half the effort. 8-Scalsnsyj-jcmlim does ALL the effort. Patient does none of the effort to complete the activity. Or, the assistance of 2 or more helpers is required for the patient to complete the activity. If activity was not attempted, code reason: 7-Patient Refused. 9-Not Applicable-not attempted and the patient did not perform the activity before the current illness, exacerbation or injury. 10-Not Attempted due to Environmental Limitations-(lack of equipment, weather restraints, etc.). 88-Not Attempted due to Medical Conditions or Safety Concerns. Roll Left to Right (QC): 6 Sit to Lying (QC): 4 Sit to Stand (QC): 4 Chair/Pfy-gs-Cedno Xfer(QC): 4 Car Transfer (QC): 88 Gait Training Does the Patient Walk?: Yes Distance: 120'x2, 100' Walk 10 feet (QC): 4 Walk 50 ft with 2 Turns(QC): 4 Walk 150 ft (QC): 4 Walking 10ft/uneven surface-QC: 88 Gait Persons Needed: 1 Gait Assistive Device: Walker Platform Wheelchair Training Does the Pt Use a Wheelchair?: Yes Distance: 100' Wheel 50 ft with 2 turns (QC): 4 Wheel 150 ft (QC): 4 Type of Wheelchair: Manual Stair Training Stair Training: Handrails/: uses walker #of Steps: 1 1 Step (curb) (QC): 4 4 Steps (QC): 88 12 Steps (QC): 88 Stairs: Pattern: Step to Balance Picking up an Object (QC): 88 ADL-Treatment Eating (QC): 5 Oral Hygiene (QC): 5 (completes with ) Bathing Location: L Arm, R Arm, L Upper Leg, R Upper Leg, L Lower Leg (including foot), R Lower Leg (including foot), Chest, Abdomen, Perineal Area Shower/Bathe Self (QC): 3 Upper Body Dressing (QC): 3 Lower Body Dressing (QC): 3 On/Off Footwear (QC): 5 Toileting Hygiene (QC): 4 Toilet Transfer (QC): 4 Assessment/Plan Assessment and Plan Assess & Plan/Chief Complaint Assessment: Left hip fracture Left wrist fracture Fall Postop pneumonia New onset atrial fibrillation with rapid ventricular response status post cardioversion unsuccessful and amiodarone drip x48 hours and spontaneously converted to normal sinus rhythm Oral anticoagulation for stroke prophylaxis Postop anemia Iron deficiency Hypothyroidism but low TSH placing patient at risk for atrial fibrillation so holding 25 mcg dose Depression situational type with decreased motivation IV infiltration right arm Plan: Monitor labs Iron supplement Oxygen Rehab protocol Cardiology appreciated Telemetry 08/30/2021: Supportive care Pain control Therapy regimen 08/31/2021: Transition to oral antibiotics K pad and ice to right arm 09/01/21: Monitor closely Pain control 09/02/21: Supportive care Kpad to right arm Imodium 09/03/21: Improved status Increase independence 09/04/2021: Continue pain control Aggressive therapy 09/05/2021: Continue meds Supportive care 09/06/21: DC planned for next week 09/07/2021: Supportive care Discharge plan soon 09/08/2021: Dramatic improvement since admit Monitor closely 09/09/2021: Supportive care Discharge soon 09/10/2021: Discharge Thursday Supportive care (1) Hip fracture Status: Acute (2) Pneumonia (3) Anemia due to acute blood loss (4) Iron deficiency (5) Low TSH level (6) Afib (7) HLD (hyperlipidemia) (8) Essential (primary) hypertension (9) Hypothyroidism (10) Wrist fracture Status: Acute (11) Osteoporosis JENIFFER VAZ DO Sep 10, 2021 07:21
[2021-09-10 07:34] VITALS: BP 141/66
[2021-09-10] MEDS: VITAMIN D3 125 MCG (5,000 UNITS) CAPSULE PO SCH (08:17)
[2021-09-10] MEDS: APIXABAN 5 MG (ELIQUIS) TABLET PO SCH ×2 (08:17→20:56)
[2021-09-10] MEDS: CALCIUM CARB + VIT D 600 MG (CALCARB + D) TAB PO SCH (08:17)
[2021-09-10] MEDS: PANTOPRAZOLE 40 MG (PROTONIX) TAB PO SCH (08:17)
[2021-09-10] MEDS: AMIODARONE 200 MG (CORDARONE) TAB PO SCH (08:17)
[2021-09-10] MEDS: HYDROcodone/APAP 5 MG/325 MG (LORTAB) TAB PO PRN ×3 (08:17→22:44)
[2021-09-10] MEDS: DOCUSATE SODIUM 100 MG (COLACE) CAP PO SCH ×2 (08:19→20:58)
[2021-09-10] MEDS: polyethylene glycoL POWDER 17 GM (MIRALAX) PACK PO SCH ×2 (08:19→20:58)
[2021-09-10] MEDS: SENNA W/DOCUSATE (SENOKOT S) TABLET PO SCH ×2 (08:19→20:58)
[2021-09-10] MEDS: TIMOLOL MALEATE 0.5% 5 ML (TIMOPTIC) BTL OU SCH ×2 (08:20→20:55)
--- NOTE | 2021-09-10 10:00 | Occupational Ther Daily Note ---
OT Current Status-Daily Note Subjective Pt alert, sitting in recliner. Pt stated that her B LE's are showing edema, referred questions to physician and recommended to have feet up when sitting. Pt agrees to therapy. Pt stated she had pain medication already. Mental Status/Objective Patient Orientation: Person, Place, Time, Situation Attachments: Other-See Comments (cast L UE) ADL-Treatment 1st session([id number]): Sitting in recliner, pt agrees to dressing since she had shower yesterday(per pt). Pt doffs/dons socks with dressing stick and sock aide by self after set up, assist to don DANIELLE hose. After setup, pt able to don/doff shirt by self, threads arms through bra and adjusts only assist is to hook bra. Close SBA to hike pants over hips to doff/don, using co founder and chief strategy officer pt is able to thread feet through pants/brief legs by self. CGA for sit to stand and SBA for ambulation to therapy gym. Therapy Code Descriptions/Definitions Functional [place] Measure: 0=Not Assessed/NA 4=Minimal Assistance 1=Total Assistance 5=Supervision or Setup 2=Maximal Assistance 6=Modified [place] 3=Moderate Assistance 7=Complete IndependenceSCALE: Activities may be completed with or without assistive devices. 6-Jkmweqjovq-ymidubl completes the activity by him/herself with no assistance from a helper. 5-Set-up or Clean-up Assistance-helper sets up or cleans up; patient completes activity. [place] assists only prior to or following the activity. 4-Supervision or Touching Assistance-helper provides verbal cues and/or touching/steadying and/or contact guard assistance as patient completes activity. Assistance may be provided throughout the activity or intermittently. 3-Partial/Moderate Assistance-helper does LESS THAN HALF the effort. [place] lifts, holds or supports trunk or limbs, but provides less than half the effort. 2-Substantial/Maximal Assistance-helper does MORE THAN HALF the effort. [place] lifts or holds trunk or limbs and provides more than half the effort. 4-Jfygubnsl-rklonz does ALL the effort. Patient does none of the effort to complete the activity. Or, the assistance of 2 or more helpers is required for the patient to complete the activity. If activity was not attempted, code reason: 7-Patient Refused. 9-Not Applicable-not attempted and the patient did not perform the activity before the current illness, exacerbation or injury. 10-Not Attempted due to Environmental Limitations-(lack of equipment, weather restraints, etc.). 88-Not Attempted due to Medical Conditions or Safety Concerns. Upper Body Dressing (QC): 3 Lower Body Dressing (QC): 4 On/Off Footwear: 5 Other Treatment 1st session([id number]): Using FWW with platform, pt able to ambulate to/from therapy gym/room with SBA. Pt completed B UE exercises to increase strength and activity tolerance for daily functional tasks. Arm bike for 9 min at 20 islas resistance with 2 recovery breaks. Resistive clothespins 2x's, L UE completes light resistance (yellow,red) and R UE completes heavy resistance (green,bl ue,black). After therapy, pt sitting in recliner with B LE elevated and call light/phone in reach. All needs met in room. 2nd session([id number]): Using FWW with platform, pt ambulated to/from gym/room with SBA. Pt completed B UE strengthening, ROM and standing tasks to increase strength and activity tolerance for daily functional tasks. ROM completed 2x's with each UE picking up from various heights to work on dynamic balance and stamina. When pt was back in room, pt completed light resistance theraband for B UE strengthening. HERNÁNDEZ assisted with tricep rows and bicep curls then pt completed horizontal shldr flex/ext 1 set 15 reps. After session, pt sitting in recliner withc all light/phone in reach. All needs met in room. OT Short Term Goals Short Term Goals Time Frame: Sep 12, 2021 Eatin Oral hygiene: 3 Toileting hygiene: 2 Shower/bathe self: 3 Upper body dressin Lower body dressin Putting on/taking off footwear: 3 OT Custodial Goals Janitor And Cleaner Goals Time Frame: Sep 26, 2021 Eating (QC): 6 Oral Hygiene (QC): 5 Toileting Hygiene (QC): 4 Shower/Bathe Self (QC): 4 Upper Body Dressing (QC): 4 Lower Body Dressing (QC): 4 On/Off Footwear (QC): 4 1=Demonstrate adherence to instructed precautions during ADL tasks. 2=Patient will verbalize/demonstrate understanding of assistive devices/modifications for ADL. 3=Patient will improve strength/tolerance for activity to enable patient to perform ADL's. OT Education/Plan Problem List/Assessment Assessment: Decreased Activ Tolerance, Decreased UE Strength, Impaired Self- Care Skills, Restricted Funct UE ROM Discharge Recommendations Plan/Recommendations: Continue POC Treatment Plan/Plan of Care Patient would benefit from OT for education, treatment and training to promote independence in ADL's, mobility, safety and/or upper extremity function for ADL's. Plan of Care: ADL Retraining, Functional Mobility, Group Exercise/Act as Ind, UE Funct Exercise/Act, W/C Management Training Treatment Duration: Sep 26, 2021 Frequency: At least 5 of 7 days/Wk (IRF) Estimated Hrs Per Day: 1.5 hours per day Agreement: Yes Rehab Potential: Fair Time/GCodes Start Time: 09:00 (1300) Stop Time: 10:00 (1330) Total Time Billed (hr/min): 90 Billed Treatment Time 1 visit([id number])-ADL 2 (30 min) EX 2 (30 min) 1 visit([id number])-EX 2 (30 min) DALILA HERCULES Sep 10, 2021 10:00
--- NOTE | 2021-09-10 10:52 | Physical Therapy Daily Note ---
PT Daily Note-Current Subjective Pt in recliner upon arrival w/ spouse in room and agrees to tx. Pt has no c/o pain at this time. Mental Status Patient Orientation: Person, Place, Time, Situation Transfers SCALE: Activities may be completed with or without assistive devices. 1-Nmerfnzvtk-mhiptos completes the activity by him/herself with no assistance from a helper. 5-Set-up or Clean-up Assistance-helper sets up or cleans up; patient completes activity. [place] assists only prior to or following the activity. 4-Supervision or Touching Assistance-helper provides verbal cues and/or touching/steadying and/or contact guard assistance as patient completes act ivity. Assistance may be provided throughout the activity or intermittently. 3-Partial/Moderate Assistance-helper does LESS THAN HALF the effort. [place] lifts, holds or supports trunk or limbs, but provides less than half the effort. 2-Substantial/Maximal Assistance-helper does MORE THAN HALF the effort. [place] lifts or holds trunk or limbs and provides more than half the effort. 7-Rzrobiqdt-eocdaa does ALL the effort. Patient does none of the effort to complete the activity. Or, the assistance of 2 or more helpers is required for the patient to complete the activity. If activity was not attempted, code reason: 7-Patient Refused. 9-Not Applicable-not attempted and the patient did not perform the activity before the current illness, exacerbation or injury. 10-Not Attempted due to Environmental Limitations-(lack of equipment, weather restraints, etc.). 88-Not Attempted due to Medical Conditions or Safety Concerns. Sit to Stand (QC): 3 Moisés sit to stand from lower surfaces Weight Bearing Left Lower Extremity: Left Weight Bearing/Tolerated NWB LUE but can bear weight on elbow PT Short Term Goals Short Term Goals Time Frame: Sep 05, 2021 Roll Left & Right: 3 Sit to lyin Lying to sitting on side of be: 3 Sit to stand: 3 Chair/ixh-lk-jpqne transfer: 3 Walk 10 feet: 3 PT [facility] Goals City Administrator Goals PT City Administrator Goals Time Frame: Sep 19, 2021 Roll Left & Right (QC): 3 (Moisés) Sit to Lying (QC): 3 (Moisés) Lying-Sitting on Side/Bed(QC): 3 (Moisés) Sit to Stand (QC): 3 (Moiéss) Chair/Lpx-py-Uxhsm Xfer(QC): 3 (Moisés) Toilet Transfer (QC): 3 (Moisés) Car Transfer (QC): 3 (Moisés) Does the Patient Walk: Yes Walk 10 feet (QC): 3 (Moisés) Walk 50ft with 2 Turns (QC): 3 (Moisés) Walk 150 ft (QC): 88 Walking 10ft on Uneven Surface: 3 (Moisés) 1 Step (curb) (QC): 3 (Moisés) 4 Steps (QC): 88 12 Steps (QC): 88 Picking up an Object (QC): 88 Wheel 50 feet with 2 turns (QC: 5 Wheel 150 feet: 5 PT Plan Treatment/Plan Treatment Plan: Bed Mobility, Education, Functional Activity Sheyla, Functional Strength, Group Therapy, Gait, Safety, Therapeutic Exercise, Transfers Treatment Duration: Sep 19, 2021 Frequency: At least 5 of 7 days/Wk (IRF) Estimated Hrs Per Day: 1.5 hours per day Patient and/or Family Agrees t: Yes SUMANTH MARROQUIN LEGAL COLLECTOR Sep 10, 2021 10:52
--- NOTE | 2021-09-10 11:52 | Physical Therapy Daily Note ---
PT Daily Note-Current Subjective Pt in recliner w/ spouse in room upon arrival and agrees to tx. Prior to tx, pt states no pain. At end of tx pt states pain 8/10 in L LE. Pain Numeric Pain Scale: 8 Mental Status Patient Orientation: Person, Place, Time, Situation Transfers SCALE: Activities may be completed with or without assistive devices. 7-Usrmuxkgfr-zhmfnge completes the activity by him/herself with no assistance from a helper. 5-Set-up or Clean-up Assistance-helper sets up or cleans up; patient completes activity. [place] assists only prior to or following the activity. 4-Supervision or Touching Assistance-helper provides verbal cues and/or touching/steadying and/or contact guard assistance as patient completes activity. Assistance may be provided throughout the activity or intermittently. 3-Partial/Moderate Assistance-helper does LESS THAN HALF the effort. [place] lifts, holds or supports trunk or limbs, but provides less than half the effort. 2-Substantial/Maximal Assistance-helper does MORE THAN HALF the effort. [place] lifts or holds trunk or limbs and provides more than half the effort. 6-Umyajvnyp-vqawhy does ALL the effort. Patient does none of the effort to complete the activity. Or, the assistance of 2 or more helpers is required for the patient to complete the activity. If activity was not attempted, code reason: 7-Patient Refused. 9-Not Applicable-not attempted and the patient did not perform the activity before the current illness, exacerbation or injury. 10-Not Attempted due to Environmental Limitations-(lack of equipment, weather restraints, etc.). 88-Not Attempted due to Medical Conditions or Safety Concerns. Sit to Stand (QC): 3 Weight Bearing Left Lower Extremity: Left Weight Bearing/Tolerated NWB LUE but can bear weight on elbow Gait Training Does the Patient Walk?: Yes Distance: 125' x2 Walk 10 feet (QC): 3 Walk 50 ft with 2 Turns(QC): 3 Gait Persons Needed: 1 Gait Assistive Device: Walker Platform Pt has antalgic gait d/t pain in L LE. VC given to increase stride length and have upright posture, but pt didn't didn't follow VC Stair Training Stair Training: Handrails/: 2 handrails #of Steps: 1 1 Step (curb) (QC): 4 Stairs: Pattern: Step to Pt completes curb step in // bars CGA Exercises Seated Therapy Exercises: Long arc quads, Hip abd/add Seated Reps: 15 Standing: Hamstring curls, Heel/toe raises, Marching, Retro gait, Sit to Stand, Step-ups, Weight shifts Standing Reps: 15 NuStep Minutes: 17 NuStep Workload: 5 Treatments Pt sit to stand from recliner Moisés and amb to therapy gym. Pt completes NuStep for 17 mins at [facility] of 5 as MASTER COOK test platform on pt private FWW. Pt then amb to // bars and completes standing ex, requiring frequent rest breaks. Pt then attempts static standing on AirEx, pt able to hold stance unsupported from UE and CGA total of 15 mins. Pt then completes dynamic standing balance activity on hard, level surface. Pt reaches w/ R UE in all planes and weight shifts side to side. Pt has rest break then completes step ups on curb step 5 x2 CGA. Pt completes sit to stands, then amb back to room. Pt request to use bathroom, able to doff/don pants and clean self CGA. Pt returns to recliner and was left with all needs met, call light in hand Assessment Current Status: Good Progress Pt private FWW is compatible with platforms used on ARU. Pt increasing strength, endurance, and mobility. Pt motivated and ready to go home PT Short Term Goals Short Term Goals Time Frame: Sep 05, 2021 Roll Left & Right: 3 Sit to lyin Lying to sitting on side of be: 3 Sit to stand: 3 Chair/qwy-ln-zaofx transfer: 3 Walk 10 feet: 3 PT Halfway Goals Embossing Press Operator Molded Goods Goals PT Embossing Press Operator Molded Goods Goals Time Frame: Sep 19, 2021 Roll Left & Right (QC): 3 (Moisés) Sit to Lying (QC): 3 (Moisés) Lying-Sitting on Side/Bed(QC): 3 (Moisés) Sit to Stand (QC): 3 (Moisés) Chair/Qlm-rp-Wyohr Xfer(QC): 3 (Moisés) Toilet Transfer (QC): 3 (Moisés) Car Transfer (QC): 3 (Moisés) Does the Patient Walk: Yes Walk 10 feet (QC): 3 (Moisés) Walk 50ft with 2 Turns (QC): 3 (Moisés) Walk 150 ft (QC): 88 Walking 10ft on Uneven Surface: 3 (Moisés) 1 Step (curb) (QC): 3 (Moisés) 4 Steps (QC): 88 12 Steps (QC): 88 Picking up an Object (QC): 88 Wheel 50 feet with 2 turns (QC: 5 Wheel 150 feet: 5 PT Plan Treatment/Plan Treatment Plan: Continue Plan of Care Treatment Plan: Bed Mobility, Education, Functional Activity Sheyla, Functional Strength, Group Therapy, Gait, Safety, Therapeutic Exercise, Transfers Treatment Duration: Sep 19, 2021 Frequency: At least 5 of 7 days/Wk (IRF) Estimated Hrs Per Day: 1.5 hours per day Patient and/or Family Agrees t: Yes Time/GCodes Time In: 1030 Time Out: 1200 Total Billed Treatment Time: 90 Total Billed Treatment 1, GT x2, Ex x2, NM x2 SUMANTH MARROQUIN MASTER COOK Sep 10, 2021 11:52
[2021-09-10 19:41] VITALS: BP 123/69
[2021-09-10] MEDS: LATANOPROST 0.005% (XALATAN) OPHTH SOLN 2.5 ML OU SCH (20:56)
[2021-09-10] MEDS: SIMvastatin 20 MG (ZOCOR) TAB PO SCH (20:56)
[2021-09-10] MEDS: MELATONIN 3 MG TABLET PO PRN (22:44)
[2021-09-11] MEDS: KCL 10 MEQ TAB (MICRO K) PO SCH (07:02)
[2021-09-11] MEDS: CYANOCOBALAMIN 1,000 MCG (VITAMIN B-12) TABLET PO SCH (07:02)
[2021-09-11] MEDS: CALCIUM CARB + VIT D 600 MG (CALCARB + D) TAB PO SCH (07:32)
[2021-09-11] MEDS: AMIODARONE 200 MG (CORDARONE) TAB PO SCH (07:32)
[2021-09-11] MEDS: PANTOPRAZOLE 40 MG (PROTONIX) TAB PO SCH (07:32)
[2021-09-11] MEDS: VITAMIN D3 125 MCG (5,000 UNITS) CAPSULE PO SCH (07:32)
[2021-09-11] MEDS: APIXABAN 5 MG (ELIQUIS) TABLET PO SCH ×2 (07:33→21:23)
[2021-09-11] MEDS: TIMOLOL MALEATE 0.5% 5 ML (TIMOPTIC) BTL OU SCH ×2 (07:34→21:24)
[2021-09-11] MEDS: DOCUSATE SODIUM 100 MG (COLACE) CAP PO SCH ×2 (07:40→21:40)
[2021-09-11] MEDS: SENNA W/DOCUSATE (SENOKOT S) TABLET PO SCH ×2 (07:41→21:40)
[2021-09-11] MEDS: polyethylene glycoL POWDER 17 GM (MIRALAX) PACK PO SCH ×2 (07:41→21:40)
[2021-09-11 08:00] VITALS: BP 158/71
[2021-09-11] MEDS: HYDROcodone/APAP 5 MG/325 MG (LORTAB) TAB PO PRN ×3 (08:53→21:23)
--- NOTE | 2021-09-11 09:29 | PM&R Progress Note ---
Subjective HPI/CC On Admission Date Seen by Provider: Sep 11, 2021 Time Seen by Provider: 09:00 Subjective/Events-last exam 09/11/2021: Patient doing well Discharge planned on Thursday Continue aggressive therapy Pain is well controlled 09/10/2021: Patient doing well No major issues Thursday discharge Continues aggressive therapy 09/09/2021: Pt doing well Wants to go home soon Bowels are moving BP is elevated at 160s No Ensure is required anymore and she doesnt like it anyway 09/08/2021: Patient sleeping soundly Becomes alert without difficulty No pain is reported Working aggressively on transfers and ambulation Talked about her walkers 09/07/2021: Patient in a good mood Denies any new pain Right arm is much better Getting transfers better 09/06/21: Pt doing well No significant concerns Checked meds and labs No falls 09/05/2021: Patient doing well Had a good bowel movement today No major issues Ate a good breakfast 09/04/2021: Patient much improved Bowels moving Pain improved Transfers are better Motivated to go home 09/03/21: Patient doing well Right arm improved from IV infiltration Transferring better Wants to go home soon Omnicef completed BM regular 09/02/21: Patient doing very well WBC 14.7 Imodium ordered for loose stools Right arm IV infiltration improved Participating in therapy 09/01/21: Patient doing really well Tolerating pain with Tylenol only Lortab will be reserved before therapy Bowels are moving Voiding okay Dressing changes appear to be doing well 08/31/2021: Patient doing well Right arm from IV infiltration is sore so alternating between ice and K pad at the bedside Making progress in therapy 08/30/2021: Patient doing really well Working hard with therapy Pain is well controlled Last IV so changed antibiotic to p.o. Stopped last few doses of iron due to no IV access Pain is pretty well controlled Review of Systems General: Fatigue, Malaise Musculoskeletal: arm pain, leg pain Objective Exam Vital Signs Vital Signs Date Time Temp Pulse Resp B/P (MAP) Pulse Ox O2 Delivery O2 Flow Rate FiO2 09/11/21 21:00 Room Air 09/11/21 19:44 35.7 78 17 136/62 (86) 100 Capillary Refill : General Appearance: No Apparent Distress, WD/WN, Anxious, Chronically ill, Other (Fatigued and pale) HEENT: PERRL/EOMI, Normal ENT Inspection, Pharynx Normal Neck: Full Range of Motion, Normal Inspection, Non Tender, Supple, Carotid Bruit Respiratory: Chest Non Tender, Lungs Clear, Normal Breath Sounds, No Accessory Muscle Use, No Respiratory Distress, Decreased Breath Sounds Cardiovascular: Regular Rate, Rhythm, No Edema, No Gallop, No JVD, No Murmur, Normal Peripheral Pulses Gastrointestinal: Normal Bowel Sounds, No Organomegaly, No Pulsatile Mass, Non Tender, Soft Back: Normal Inspection, No CVA Tenderness, No Vertebral Tenderness Extremity: Normal Capillary Refill, Normal Inspection, Normal Range of Motion, Non Tender, No Calf Tenderness, No Pedal Edema Neurologic/Psychiatric: Alert, Oriented x3, No Motor/Sensory Deficits, flagman II- XII Norm as 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 FIM Transfers Therapy Code Descriptions/Definitions Functional [place] Measure: 0=Not Assessed/NA 4=Minimal Assistance 1=Total Assistance 5=Supervision or Setup 2=Maximal Assistance 6=Modified [place] 3=Moderate Assistance 7=Complete IndependenceSCALE: Activities may be completed with or without assistive devices. 4-Cxofbgzgwd-uqlwvcf completes the activity by him/herself with no assistance from a helper. 5-Set-up or Clean-up Assistance-helper sets up or cleans up; patient completes activity. [place] assists only prior to or following the activity. 4-Supervision or Touching Assistance-helper provides verbal cues and/or touching/steadying and/or contact guard assistance as patient completes activity. Assistance may be provided throughout the activity or intermittently. 3-Partial/Moderate Assistance-helper does LESS THAN HALF the effort. [place] lifts, holds or supports trunk or limbs, but provides less than half the effort. 2-Substantial/Maximal Assistance-helper does MORE THAN HALF the effort. [place] l ifts or holds trunk or limbs and provides more than half the effort. 5-Rnywccara-mzithh does ALL the effort. Patient does none of the effort to complete the activity. Or, the assistance of 2 or more helpers is required for the patient to complete the activity. If activity was not attempted, code reason: 7-Patient Refused. 9-Not Applicable-not attempted and the patient did not perform the activity before the current illness, exacerbation or injury. 10-Not Attempted due to Environmental Limitations-(lack of equipment, weather restraints, etc.). 88-Not Attempted due to Medical Conditions or Safety Concerns. Roll Left to Right (QC): 6 Sit to Lying (QC): 4 Sit to Stand (QC): 3 Chair/Kmb-jz-Zquqv Xfer(QC): 4 Car Transfer (QC): 88 Gait Training Does the Patient Walk?: Yes Distance: 125' x2 Walk 10 feet (QC): 3 Walk 50 ft with 2 Turns(QC): 3 Walk 150 ft (QC): 4 Walking 10ft/uneven surface-QC: 88 Gait Persons Needed: 1 Gait Assistive Device: Walker Platform Wheelchair Training Does the Pt Use a Wheelchair?: Yes Distance: 100' Wheel 50 ft with 2 turns (QC): 4 Wheel 150 ft (QC): 4 Type of Wheelchair: Manual Stair Training Stair Training: Handrails/: 2 handrails #of Steps: 1 1 Step (curb) (QC): 4 4 Steps (QC): 88 12 Steps (QC): 88 Stairs: Pattern: Step to Balance Picking up an Object (QC): 88 ADL-Treatment Eating (QC): 5 Oral Hygiene (QC): 5 (completes with ) Bathing Location: L Arm, R Arm, L Upper Leg, R Upper Leg, L Lower Leg (including foot), R Lower Leg (including foot), Chest, Abdomen, Perineal Area Shower/Bathe Self (QC): 3 Upper Body Dressing (QC): 3 Lower Body Dressing (QC): 4 On/Off Footwear (QC): 5 Toileting Hygiene (QC): 4 Toilet Transfer (QC): 4 Assessment/Plan Assessment and Plan Assess & Plan/Chief Complaint Assessment: Left hip fracture Left wrist fracture Fall Postop pneumonia New onset atrial fibrillation with rapid ventricular response status post cardioversion unsuccessful and amiodarone drip x48 hours and spontaneously converted to normal sinus rhythm Oral anticoagulation for stroke prophylaxis Postop anemia Iron deficiency Hypothyroidism but low TSH placing patient at risk for atrial fibrillation so holding 25 mcg dose Depression situational type with decreased motivation IV infiltration right arm Plan: Monitor labs Iron supplement Oxygen Rehab protocol Cardiology appreciated Telemetry 08/30/2021: Supportive care Pain control Therapy regimen 08/31/2021: Transition to oral antibiotics K pad and ice to right arm 09/01/21: Monitor closely Pain control 09/02/21: Supportive care Kpad to right arm Imodium 09/03/21: Improved status Increase independence 09/04/2021: Continue pain control Aggressive therapy 09/05/2021: Continue meds Supportive care 09/06/21: DC planned for next week 09/07/2021: Supportive care Discharge plan soon 09/08/2021: Dramatic improvement since admit Monitor closely 09/09/2021: Supportive care Discharge soon 09/10/2021: Discharge Thursday Supportive care 09/11/2021: Discharge plan for Thursday Use walker with platform at discharge (1) Hip fracture Status: Acute (2) Pneumonia (3) Anemia due to acute blood loss (4) Iron deficiency (5) Low TSH level (6) Afib (7) HLD (hyperlipidemia) (8) Essential (primary) hypertension (9) Hypothyroidism (10) Wrist fracture Status: Acute (11) Osteoporosis JENIFFER VAZ DO Sep 11, 2021 09:29
--- NOTE | 2021-09-11 10:32 | Occupational Ther Daily Note ---
OT Current Status-Daily Note Subjective Pt alert, in bathroom with nrsg. Pt agrees to therapy. No c/o pain. Mental Status/Objective Patient Orientation: Person, Place, Time, Situation Attachments: Other-See Comments (cast L UE) ADL-Treatment 1st session ([id number]): Pt is SBA for toilet transfer. CGA for clothing manipulation and cleanses self in sitting to complete toileting. Pt agrees to shower. CGA for shower transfers. Covering cast for shower. Sitting on shower bench, pt uses LH sponge, grabbars and hand held shower to bathe all areas in sitting except buttocks. Pt requires CGA while standing stabilizing with grabbar using L hand to cleanse buttocks. After set up, pt able to thread lower body clothing over feet and pull up legs by self then CGA. Doffs socks with dressing stick and dons socks with sock aide after set up. Therapy Code Descriptions/Definitions Functional [place] Measure: 0=Not Assessed/NA 4=Minimal Assistance 1=Total Assistance 5=Supervision or Setup 2=Maximal Assistance 6=Modified [place] 3=Moderate Assistance 7=Complete IndependenceSCALE: Activities may be completed with or without assistive devices. 4-Rizjowkapr-gideoou completes the activity by him/herself with no assistance from a helper. 5-Set-up or Clean-up Assistance-helper sets up or cleans up; patient completes activity. [place] assists only prior to or following the activity. 4-Supervision or Touching Assistance-helper provides verbal cues and/or touching/steadying and/or contact guard assistance as patient completes activity. Assistance may be provided throughout the activity or intermittently. 3-Partial/Moderate Assistance-helper does LESS THAN HALF the effort. [place] lifts, holds or supports trunk or limbs, but provides less than half the effort. 2-Substantial/Maximal Assistance-helper does MORE THAN HALF the effort. [place] lifts or holds trunk or limbs and provides more than half the effort. 1-Ydhclfxsg-apijvl does ALL the effort. Patient does none of the effort to complete the activity. Or, the assistance of 2 or more helpers is required for the patient to complete the activity. If activity was not attempted, code reason: 7-Patient Refused. 9-Not Applicable-not attempted and the patient did not perform the activity before the current illness, exacerbation or injury. 10-Not Attempted due to Environmental Limitations-(lack of equipment, weather restraints, etc.). 88-Not Attempted due to Medical Conditions or Safety Concerns. Eating (QC): 6 (Per clinical judgment, pt able to complete indepedently.) Oral Hygiene (QC): 6 Shower/Bathe Self (QC): 4 Upper Body Dressing (QC): 3 Lower Body Dressing (QC): 4 On/Off Footwear: 5 Toileting Hygiene (QC): 4 Toilet Transfer (QC): 4 Other Treatment 1st session ([id number]): Using 2# hand wts, pt able to complete B UE strengthening to increase strength and activity tolerance for daily functional tasks. Alternating B shldr press, 2 sets 10 reps; bicep curls 2 sets 15 reps; R forearm sup/pron 2 sets 15 reps; wrist flex 2 sets 15 reps; wrist ext 2 sets 15 reps. Left 2# hand wts in room for pt to use throughout day. Skilled instruction required for correct technique and positioning. After session, pt sitting in recliner with call light/phone in reach. All needs met in room. 2nd session ([id number]): Pt able to go from sit <--> stand with close SBA pushing up from chair with R hand and placing L hand onto FWW (middle of front bar). Pt ambulated to room with tub/shower to work on tub bench transfer. Pt educated on transfer and how to use gait belt to lift foot in/out of tub. Pt able to complete with SBA. Pt then ambulated to therapy gym to complete arm bike for 8 min at 20 islas resistance to increase strength and activity tolerance for daily functional tasks. Pt completed heavy resistance gripper 10x's with R hand. Pt ambulated back to room with platform FWW. After session, pt sitting in recliner with call light/phone in reach. All needs met in room. Education OT Patient Education: Transfer techniques, Use of adapted equipment Teaching Recipient: Patient, Family Teaching Methods: Demonstration, Discussion Response to Teaching: Verbalize Understanding, Return Demonstration OT Short Term Goals Short Term Goals Time Frame: Sep 12, 2021 Eatin Oral hygiene: 3 Toileting hygiene: 2 Shower/bathe self: 3 Upper body dressin Lower body dressin Putting on/taking off footwear: 3 OT Fci Goals Fci Goals Time Frame: Sep 26, 2021 Eating (QC): 6 Oral Hygiene (QC): 5 Toileting Hygiene (QC): 4 Shower/Bathe Self (QC): 4 Upper Body Dressing (QC): 4 Lower Body Dressing (QC): 4 On/Off Footwear (QC): 4 1=Demonstrate adherence to instructed precautions during ADL tasks. 2=Patient will verbalize/demonstrate understanding of assistive devices/modifications for ADL. 3=Patient will improve strength/tolerance for activity to enable patient to perform ADL's. OT Education/Plan Problem List/Assessment Assessment: Decreased Activ Tolerance, Decreased UE Strength, Impaired Funct Balance, Impaired Self-Care Skills, Restricted Funct UE ROM Discharge Recommendations Plan/Recommendations: Continue POC Treatment Plan/Plan of Care Patient would benefit from OT for education, treatment and training to promote independence in ADL's, mobility, safety and/or upper extremity function for ADL's. Plan of Care: ADL Retraining, Functional Mobility, Group Exercise/Act as Ind, UE Funct Exercise/Act, W/C Management Training Treatment Duration: Sep 26, 2021 Frequency: At least 5 of 7 days/Wk (IRF) Estimated Hrs Per Day: 1.5 hours per day Agreement: Yes Rehab Potential: Fair Time/GCodes Start Time: 09:00 (1300) Stop Time: 10:00 (1330) Total Time Billed (hr/min): 90 Billed Treatment Time 1 visit([id number]): ADL 3 (45 min) EX 1 (15 min) 1 visit([id number]): FA 1 (20 min) EX 1 (10 min) DALILA HERCULES Sep 11, 2021 10:32
--- NOTE | 2021-09-11 11:25 | Physical Therapy Daily Note ---
PT Daily Note-Current Subjective Pt in recliner w/ spouse in room and agrees to tx. Pt states pain 5/10 in L LE Pain Numeric Pain Scale: 5-Moderate Pain Location: Left Location Body Site: Hip Mental Status Patient Orientation: Person, Place, Time, Situation Transfers SCALE: Activities may be completed with or without assistive devices. 6-Kdrkhfrfol-zpovwsa completes the activity by him/herself with no assistance from a helper. 5-Set-up or Clean-up Assistance-helper sets up or cleans up; patient completes activity. [place] assists only prior to or following the activity. 4-Supervision or Touching Assistance-helper provides verbal cues and/or touching/steadying and/or contact guard assistance as patient completes activity. Assistance may be provided throughout the activity or intermittently. 3-Partial/Moderate Assistance-helper does LESS THAN HALF the effort. [place] lifts, holds or supports trunk or limbs, but provides less than half the effort. 2-Substantial/Maximal Assistance-helper does MORE THAN HALF the effort. [place] lifts or holds trunk or limbs and provides more than half the effort. 3-Pisjoopvp-eshrie does ALL the effort. Patient does none of the effort to complete the activity. Or, the assistance of 2 or more helpers is required for the patient to complete the activity. If activity was not attempted, code reason: 7-Patient Refused. 9-Not Applicable-not attempted and the patient did not perform the activity before the current illness, exacerbation or injury. 10-Not Attempted due to Environmental Limitations-(lack of equipment, weather restraints, etc.). 88-Not Attempted due to Medical Conditions or Safety Concerns. Sit to Stand (QC): 4 Weight Bearing Left Lower Extremity: Left Weight Bearing/Tolerated NWB LUE but can bear weight on elbow Gait Training Does the Patient Walk?: Yes Distance: 150' Walk 10 feet (QC): 4 Walk 50 ft with 2 Turns(QC): 4 Walk 150 ft (QC): 4 Gait Persons Needed: 1 Gait Assistive Device: Walker Platform antalgic gait, tends to have forward flexed posture and doesn't correct with VC Stair Training Stair Training: Handrails/: 2 handrails #of Steps: 1 1 Step (curb) (QC): 4 Exercises Seated Therapy Exercises: Long arc quads, Hip flexion, Hip abd/add Seated Reps: 15 Standing: Heel/toe raises, Mini squats, Step-ups Standing Reps: 15 NuStep Minutes: 17 NuStep Workload: 8 Treatments Pt sit to stand and amb on ARU to therapy gym. Pt completes NuStep 17 mins on WL of 5. Pt enters // bars and completes standing ex followed by seated ex with rest breaks between each ex. Step ups 5 x2. Pt complets LAQ for 3 minutes. Post rest break, pt amb back to room. Pt remains in recliner with all needs met, call light in hand. Assessment Current Status: Good Progress Pt increasing endurance, mobility, and strength. Pt is ready to go home PT Short Term Goals Short Term Goals Time Frame: Sep 05, 2021 Roll Left & Right: 3 Sit to lyin Lying to sitting on side of be: 3 Sit to stand: 3 Chair/nki-dh-dwolr transfer: 3 Walk 10 feet: 3 PT Air Bag Builder Goals Intermediate Goals PT Air Bag Builder Goals Time Frame: Sep 19, 2021 Roll Left & Right (QC): 3 (Moisés) Sit to Lying (QC): 3 (Moisés) Lying-Sitting on Side/Bed(QC): 3 (Moisés) Sit to Stand (QC): 3 (Moisés) Chair/Iwp-lk-Narwx Xfer(QC): 3 (Moisés) Toilet Transfer (QC): 3 (Moisés) Car Transfer (QC): 3 (Moisés) Does the Patient Walk: Yes Walk 10 feet (QC): 3 (Moisés) Walk 50ft with 2 Turns (QC): 3 (Moisés) Walk 150 ft (QC): 88 Walking 10ft on Uneven Surface: 3 (Moisés) 1 Step (curb) (QC): 3 (Moisés) 4 Steps (QC): 88 12 Steps (QC): 88 Picking up an Object (QC): 88 Wheel 50 feet with 2 turns (QC: 5 Wheel 150 feet: 5 PT Plan Treatment/Plan Treatment Plan: Continue Plan of Care Treatment Plan: Bed Mobility, Education, Functional Activity Sheyla, Functional Strength, Group Therapy, Gait, Safety, Therapeutic Exercise, Transfers Treatment Duration: Sep 19, 2021 Frequency: At least 5 of 7 days/Wk (IRF) Estimated Hrs Per Day: 1.5 hours per day Patient and/or Family Agrees t: Yes Time/GCodes Time In: 1030 Time Out: 1130 Total Billed Treatment Time: 60 Total Billed Treatment 1, GT x2, EX x2 SUMANTH MARROQUIN DRAWBENCH OPERATOR Sep 11, 2021 11:25
--- NOTE | 2021-09-11 13:52 | Physical Therapy Daily Note ---
PT Daily Note-Current Subjective Pt in recliner upon arrival w/ spouse in room and agrees to tx. Pt states she has pain but was just given pain medication, doesn't rate out of 10. Transfers SCALE: Activities may be completed with or without assistive devices. 9-Gmfgwwztfv-jzfazee completes the activity by him/herself with no assistance from a helper. 5-Set-up or Clean-up Assistance-helper sets up or cleans up; patient completes activity. [place] assists only prior to or following the activity. 4-Supervision or Touching Assistance-helper provides verbal cues and/or touching/steadying and/or contact guard assistance as patient completes activity. Assistance may be provided throughout the activity or intermittently. 3-Partial/Moderate Assistance-helper does LESS THAN HALF the effort. [place] lifts, holds or supports trunk or limbs, but provides less than half the effort. 2-Substantial/Maximal Assistance-helper does MORE THAN HALF the effort. [place] lifts or holds trunk or limbs and provides more than half the effort. 3-Ilkxhuzbw-nzhxhj does ALL the effort. Patient does none of the effort to complete the activity. Or, the assistance of 2 or more helpers is required for the patient to complete the activity. If activity was not attempted, code reason: 7-Patient Refused. 9-Not Applicable-not attempted and the patient did not perform the activity before the current illness, exacerbation or injury. 10-Not Attempted due to Environmental Limitations-(lack of equipment, weather restraints, etc.). 88-Not Attempted due to Medical Conditions or Safety Concerns. Sit to Stand (QC): 5 Weight Bearing Left Lower Extremity: Left Weight Bearing/Tolerated NWB LUE but can bear weight on elbow Gait Training Does the Patient Walk?: Yes Distance: 200' x2 Walk 10 feet (QC): 4 Walk 50 ft with 2 Turns(QC): 4 Walk 150 ft (QC): 4 Gait Persons Needed: 1 Gait Assistive Device: Walker Platform Antalgic gait d/t pain in L LE Treatments Pt sit to stand from recliner and amb 200' to therapy gym. Pt completes dynamic standing balance activity, weight shifting while reaching R UE in all planes and using L elbow as support on platform FWW. Pt requires CGA/SBA during balance activity with no LOB. Pt amb 200' back to room and returns to recliner, pt left with all needs met and call light in hand. Assessment Current Status: Good Progress Pt increasing endurance, strength, and balance. PT Short Term Goals Short Term Goals Time Frame: Sep 05, 2021 Roll Left & Right: 3 Sit to lyin Lying to sitting on side of be: 3 Sit to stand: 3 Chair/zsl-pg-zrjpz transfer: 3 Walk 10 feet: 3 PT Mcc Goals Mcc Goals PT Mcc Goals Time Frame: Sep 19, 2021 Roll Left & Right (QC): 3 (Moisés) Sit to Lying (QC): 3 (Moisés) Lying-Sitting on Side/Bed(QC): 3 (Moisés) Sit to Stand (QC): 3 (Moisés) Chair/Frg-cu-Wgwap Xfer(QC): 3 (Moisés) Toilet Transfer (QC): 3 (Moisés) Car Transfer (QC): 3 (Moisés) Does the Patient Walk: Yes Walk 10 feet (QC): 3 (Moisés) Walk 50ft with 2 Turns (QC): 3 (Moisés) Walk 150 ft (QC): 88 Walking 10ft on Uneven Surface: 3 (Moisés) 1 Step (curb) (QC): 3 (Moisés) 4 Steps (QC): 88 12 Steps (QC): 88 Picking up an Object (QC): 88 Wheel 50 feet with 2 turns (QC: 5 Wheel 150 feet: 5 PT Plan Treatment/Plan Treatment Plan: Continue Plan of Care Treatment Plan: Bed Mobility, Education, Functional Activity Sheyla, Functional Strength, Group Therapy, Gait, Safety, Therapeutic Exercise, Transfers Treatment Duration: Sep 19, 2021 Frequency: At least 5 of 7 days/Wk (IRF) Estimated Hrs Per Day: 1.5 hours per day Patient and/or Family Agrees t: Yes Safety Risks/Education Patient Education: Gait Training, Correct Positioning, Safety Issues Teaching Recipient: Patient, Family Teaching Methods: Demonstration, Discussion Response to Teaching: Verbalize Understanding, Return Demonstration Time/GCodes Time In: 1330 Time Out: 1400 Total Billed Treatment Time: 30 Total Billed Treatment 1, GT, SUMANTH EUGENE WOODEN FURNITURE POLISHER Sep 11, 2021 13:52
[2021-09-11 19:44] VITALS: BP 136/62
[2021-09-11] MEDS: SIMvastatin 20 MG (ZOCOR) TAB PO SCH (21:23)
[2021-09-11] MEDS: MELATONIN 3 MG TABLET PO PRN (21:24)
[2021-09-11] MEDS: LATANOPROST 0.005% (XALATAN) OPHTH SOLN 2.5 ML OU SCH (21:24)
[2021-09-12] MEDS: CYANOCOBALAMIN 1,000 MCG (VITAMIN B-12) TABLET PO SCH (06:36)
[2021-09-12] MEDS: KCL 10 MEQ TAB (MICRO K) PO SCH (06:36)
[2021-09-12] MEDS: APIXABAN 5 MG (ELIQUIS) TABLET PO SCH ×2 (07:15→20:31)
[2021-09-12] MEDS: AMIODARONE 200 MG (CORDARONE) TAB PO SCH (07:15)
[2021-09-12] MEDS: PANTOPRAZOLE 40 MG (PROTONIX) TAB PO SCH (07:15)
[2021-09-12] MEDS: VITAMIN D3 125 MCG (5,000 UNITS) CAPSULE PO SCH (07:15)
[2021-09-12] MEDS: TIMOLOL MALEATE 0.5% 5 ML (TIMOPTIC) BTL OU SCH ×2 (07:20→21:23)
[2021-09-12] MEDS: CALCIUM CARB + VIT D 600 MG (CALCARB + D) TAB PO SCH (07:21)
[2021-09-12 07:42] VITALS: BP 150/66
[2021-09-12] MEDS: HYDROcodone/APAP 5 MG/325 MG (LORTAB) TAB PO PRN ×3 (08:34→23:29)
[2021-09-12] MEDS: SENNA W/DOCUSATE (SENOKOT S) TABLET PO SCH ×2 (08:38→19:14)
[2021-09-12] MEDS: DOCUSATE SODIUM 100 MG (COLACE) CAP PO SCH ×2 (08:38→19:14)
[2021-09-12] MEDS: polyethylene glycoL POWDER 17 GM (MIRALAX) PACK PO SCH ×2 (08:38→19:13)
--- NOTE | 2021-09-12 09:56 | Occupational Ther Daily Note ---
OT Current Status-Daily Note Subjective Pt alert, sitting in recliner. Pt agrees to therapy. No c/o pain at this time. Mental Status/Objective Patient Orientation: Person, Place, Time, Situation Attachments: Other-See Comments (cast L UE) ADL-Treatment 1st session ([id number]): Pt is SBA for toilet transfer. SBA for clothing manipulation and cleanses self in sitting to complete toileting. Pt agrees to shower. CGA for shower transfers. Covering cast for shower. Sitting on shower bench, pt uses LH sponge, grabbars and hand held shower to bathe all areas in sitting except buttocks. Pt requires CGA while standing stabilizing with grabbar using L hand to cleanse buttocks. After set up, pt able to don/doff shirt by self, doffs bra by self and assist to hook bra only. After set up, pt able to thread lower body clothing over feet and pull up legs by self then CGA. Doffs socks with dressing stick and dons socks with sock aide after set up. After session, pt sitting in recliner with call light/phone in reach. All needs met in room. Therapy Code Descriptions/Definitions Functional [place] Measure: 0=Not Assessed/NA 4=Minimal Assistance 1=Total Assistance 5=Supervision or Setup 2=Maximal Assistance 6=Modified [place] 3=Moderate Assistance 7=Complete IndependenceSCALE: Activities may be completed with or without assistive devices. 9-Paveckqyhd-uaezpxi completes the activity by him/herself with no assistance from a helper. 5-Set-up or Clean-up Assistance-helper sets up or cleans up; patient completes activity. [place] assists only prior to or following the activity. 4-Supervision or Touching Assistance-helper provides verbal cues and/or touching/steadying and/or contact guard assistance as patient completes activity. Assistance may be provided throughout the activity or intermittently. 3-Partial/Moderate Assistance-helper does LESS THAN HALF the effort. [place] lifts, holds or supports trunk or limbs, but provides less than half the effort. 2-Substantial/Maximal Assistance-helper does MORE THAN HALF the effort. [place] lifts or holds trunk or limbs and provides more than half the effort. 8-Jpbxzcrzf-jgyucp does ALL the effort. Patient does none of the effort to complete the activity. Or, the assistance of 2 or more helpers is required for the patient to complete the activity. If activity was not attempted, code reason: 7-Patient Refused. 9-Not Applicable-not attempted and the patient did not perform the activity before the current illness, exacerbation or injury. 10-Not Attempted due to Environmental Limitations-(lack of equipment, weather restraints, etc.). 88-Not Attempted due to Medical Conditions or Safety Concerns. Eating (QC): 6 (Per clinical judgment, pt able to complete by self.) Oral Hygiene (QC): 6 (Per clinical judgment, pt able to complete by self sitting at sink.) Bathing Location: L Arm, R Arm, L Upper Leg, R Upper Leg, L Lower Leg (including foot), R Lower Leg (including foot), Chest, Abdomen, Buttocks, Perineal Area Shower/Bathe Self (QC): 4 (CGA) Upper Body Dressing (QC): 3 (min A for hooking bra only, able to complete rest by self.) Lower Body Dressing (QC): 4 (CGA in standing, rest of dressing by self.) On/Off Footwear: 5 Toileting Hygiene (QC): 4 (SBA ) Toilet Transfer (QC): 4 (SBA) Other Treatment 2nd session([id number]): Pt ambulated to therapy gym to complete arm bike to increase strength and activity tolerance for daily functional tasks, 10 min 20 Lacy resistance. Pt ambulated back to room with platform FWW. Pt completed light resistance theraband for B UE strengthening, 1 set 20 reps-B shldr horizontal abd/add, bicep curls, tricep extension. After session, pt sitting in recliner with call light/phone in reach. All needs met in room. OT Short Term Goals Short Term Goals Time Frame: Sep 12, 2021 Eatin Oral hygiene: 3 Toileting hygiene: 2 Shower/bathe self: 3 Upper body dressin Lower body dressin Putting on/taking off footwear: 3 OT Care Home Goals Church Musician Goals Time Frame: Sep 26, 2021 Eating (QC): 6 (met) Oral Hygiene (QC): 5 (met) Toileting Hygiene (QC): 4 (met) Shower/Bathe Self (QC): 4 (met) Upper Body Dressing (QC): 4 (met) Lower Body Dressing (QC): 4 (met) On/Off Footwear (QC): 4 (met) 1=Demonstrate adherence to instructed precautions during ADL tasks. 2=Patient will verbalize/demonstrate understanding of assistive devices/modifications for ADL. 3=Patient will improve strength/tolerance for activity to enable patient to perform ADL's. OT Education/Plan Problem List/Assessment Assessment: Impaired Self-Care Skills, Restricted Funct UE ROM Discharge Recommendations Plan/Recommendations: Continue POC Treatment Plan/Plan of Care Patient would benefit from OT for education, treatment and training to promote independence in ADL's, mobility, safety and/or upper extremity function for ADL's. Plan of Care: ADL Retraining, Functional Mobility, Group Exercise/Act as Ind, UE Funct Exercise/Act, W/C Management Training Treatment Duration: Sep 26, 2021 Frequency: At least 5 of 7 days/Wk (IRF) Estimated Hrs Per Day: 1.5 hours per day Agreement: Yes Rehab Potential: Fair Time/GCodes Start Time: 09:00 (1400) Stop Time: 10:00 (1430) Total Time Billed (hr/min): 90 Billed Treatment Time 1 visit([id number]) ADL 4 (60 min) 1 visit([id number]) EX 2 (30 min) DALILA HERCULES Sep 12, 2021 09:56
--- NOTE | 2021-09-12 10:10 | PM&R Progress Note ---
Subjective HPI/CC On Admission Date Seen by Provider: Sep 12, 2021 Time Seen by Provider: 10:15 Subjective/Events-last exam 09/12/2021: Patient ready for discharge tomorrow Pain is controlled Bowels are moving 09/11/2021: Patient doing well Discharge planned on Thursday Continue aggressive therapy Pain is well controlled 09/10/2021: Patient doing well No major issues Thursday discharge Continues aggressive therapy 09/09/2021: Pt doing well Wants to go home soon Bowels are moving BP is elevated at 160s No Ensure is required anymore and she doesnt like it anyway 09/08/2021: Patient sleeping soundly Becomes alert without difficulty No pain is reported Working aggressively on transfers and ambulation Talked about her walkers 09/07/2021: Patient in a good mood Denies any new pain Right arm is much better Getting transfers better 09/06/21: Pt doing well No significant concerns Checked meds and labs No falls 09/05/2021: Patient doing well Had a good bowel movement today No major issues Ate a good breakfast 09/04/2021: Patient much improved Bowels moving Pain improved Transfers are better Motivated to go home 09/03/21: Patient doing well Right arm improved from IV infiltration Transferring better Wants to go home soon Omnicef completed BM regular 09/02/21: Patient doing very well WBC 14.7 Imodium ordered for loose stools Right arm IV infiltration improved Participating in therapy 09/01/21: Patient doing really well Tolerating pain with Tylenol only Lortab will be reserved before therapy Bowels are moving Voiding okay Dressing changes appear to be doing well 08/31/2021: Patient doing well Right arm from IV infiltration is sore so alternating between ice and K pad at the bedside Making progress in therapy 08/30/2021: Patient doing really well Working hard with therapy Pain is well controlled Last IV so changed antibiotic to p.o. Stopped last few doses of iron due to no IV access Pain is pretty well controlled Review of Systems General: Fatigue, Malaise Musculoskeletal: arm pain, leg pain Objective Exam Vital Signs Vital Signs Date Time Temp Pulse Resp B/P (MAP) Pulse Ox O2 Delivery O2 Flow Rate FiO2 09/12/21 20:33 Room Air 09/12/21 19:29 36.9 79 18 138/65 (89) 98 Capillary Refill : General Appearance: No Apparent Distress, WD/WN, Anxious, Chronically ill, Other (Fatigued and pale) HEENT: PERRL/EOMI, Normal ENT Inspection, Pharynx Normal Neck: Full Range of Motion, Normal Inspection, Non Tender, Supple, Carotid Bruit Respiratory: Chest Non Tender, Lungs Clear, Normal Breath Sounds, No Accessory Muscle Use, No Respiratory Distress, Decreased Breath Sounds Cardiovascular: Regular Rate, Rhythm, No Edema, No Gallop, No JVD, No Murmur, Normal Peripheral Pulses Gastrointestinal: Normal Bowel Sounds, No Organomegaly, No Pulsatile Mass, Non Tender, Soft Back: Normal Inspection, No CVA Tenderness, No Vertebral Tenderness Extremity: Normal Capillary Refill, Normal Inspection, Normal Range of Motion, Non Tender, No Calf Tenderness, No Pedal Edema Neurologic/Psychiatric: Alert, Oriented x3, No Motor/Sensory Deficits, mirror inspector II- XII Norm as 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 FIM Transfers Therapy Code Descriptions/Definitions Functional [place] Measure: 0=Not Assessed/NA 4=Minimal Assistance 1=Total Assistance 5=Supervision or Setup 2=Maximal Assistance 6=Modified [place] 3=Moderate Assistance 7=Complete IndependenceSCALE: Activities may be completed with or without assistive devices. 1-Fgezxtxeoi-xxknewg completes the activity by him/herself with no assistance from a helper. 5-Set-up or Clean-up Assistance-helper sets up or cleans up; patient completes activity. [place] assists only prior to or following the activity. 4-Supervision or Touching Assistance-helper provides verbal cues and/or touching/steadying and/or contact guard assistance as patient completes activity. Assistance may be provided throughout the activity or intermittently. 3-Partial/Moderate Assistance-helper does LESS THAN HALF the effort. [place] lifts, holds or supports trunk or limbs, but provides less than half the effort. 2-Substantial/Maximal Assistance-helper does MORE THAN HALF the effort. [place] lifts or holds trunk or limbs and provides more than half the effort. 7-Fhnfltkww-axyciz does ALL the effort. Patient does none of the effort to complete the activity. Or, the assistance of 2 or more helpers is required for the patient to complete the activity. If activity was not attempted, code reason: 7-Patient Refused. 9-Not Applicable-not attempted and the patient did not perform the activity before the current illness, exacerbation or injury. 10-Not Attempted due to Environmental Limitations-(lack of equipment, weather restraints, etc.). 88-Not Attempted due to Medical Conditions or Safety Concerns. Roll Left to Right (QC): 6 Sit to Lying (QC): 4 Sit to Stand (QC): 5 Chair/Saq-nm-Sagow Xfer(QC): 4 Car Transfer (QC): 88 Gait Training Does the Patient Walk?: Yes Distance: 200' x2 Walk 10 feet (QC): 4 Walk 50 ft with 2 Turns(QC): 4 Walk 150 ft (QC): 4 Walking 10ft/uneven surface-QC: 88 Gait Persons Needed: 1 Gait Assistive Device: Walker Platform Wheelchair Training Does the Pt Use a Wheelchair?: Yes Distance: 100' Wheel 50 ft with 2 turns (QC): 4 Wheel 150 ft (QC): 4 Type of Wheelchair: Manual Stair Training Stair Training: Handrails/: 2 handrails #of Steps: 1 1 Step (curb) (QC): 4 4 Steps (QC): 88 12 Steps (QC): 88 Stairs: Pattern: Step to Balance Picking up an Object (QC): 88 ADL-Treatment Eating (QC): 6 (Per clinical judgment, pt able to complete by self.) Oral Hygiene (QC): 6 (Per clinical judgment, pt able to complete by self sitting at sink.) Bathing Location: L Arm, R Arm, L Upper Leg, R Upper Leg, L Lower Leg (including foot), R Lower Leg (including foot), Chest, Abdomen, Buttocks, Perineal Area Shower/Bathe Self (QC): 4 (CGA) Upper Body Dressing (QC): 3 (min A for hooking bra only, able to complete rest by self.) Lower Body Dressing (QC): 4 (CGA in standing, rest of dressing by self.) On/Off Footwear (QC): 5 Toileting Hygiene (QC): 4 (SBA ) Toilet Transfer (QC): 4 (SBA) Assessment/Plan Assessment and Plan Assess & Plan/Chief Complaint Assessment: Left hip fracture Left wrist fracture Fall Postop pneumonia New onset atrial fibrillation with rapid ventricular response status post cardioversion unsuccessful and amiodarone drip x48 hours and spontaneously converted to normal sinus rhythm Oral anticoagulation for stroke prophylaxis Postop anemia Iron deficiency Hypothyroidism but low TSH placing patient at risk for atrial fibrillation so holding 25 mcg dose Depression situational type with decreased motivation IV infiltration right arm Plan: Monitor labs Iron supplement Oxygen Rehab protocol Cardiology appreciated Telemetry 08/30/2021: Supportive care Pain control Therapy regimen 08/31/2021: Transition to oral antibiotics K pad and ice to right arm 09/01/21: Monitor closely Pain control 09/02/21: Supportive care Kpad to right arm Imodium 09/03/21: Improved status Increase independence 09/04/2021: Continue pain control Aggressive therapy 09/05/2021: Continue meds Supportive care 09/06/21: DC planned for next week 09/07/2021: Supportive care Discharge plan soon 09/08/2021: Dramatic improvement since admit Monitor closely 09/09/2021: Supportive care Discharge soon 09/10/2021: Discharge Thursday Supportive care 09/11/2021: Discharge plan for Thursday Use walker with platform at discharge 09/12/2021: Discharge tomorrow (1) Hip fracture Status: Acute (2) Pneumonia (3) Anemia due to acute blood loss (4) Iron deficiency (5) Low TSH level (6) Afib (7) HLD (hyperlipidemia) (8) Essential (primary) hypertension (9) Hypothyroidism (10) Wrist fracture Status: Acute (11) Osteoporosis JENIFFER VAZ DO Sep 12, 2021 10:10
--- NOTE | 2021-09-12 13:10 | Physical Therapy Daily Note ---
PT Daily Note-Current Subjective Patient rates pain in left hip at 4/10 currently. Reports "Its an ache and not a sharp pain." Mental Status Patient Orientation: Person, Place, Time, Situation Transfers SCALE: Activities may be completed with or without assistive devices. 2-Dhrssisdsq-bioxybj completes the activity by him/herself with no assistance from a helper. 5-Set-up or Clean-up Assistance-helper sets up or cleans up; patient completes activity. [place] assists only prior to or following the activity. 4-Supervision or Touching Assistance-helper provides verbal cues and/or touching/steadying and/or contact guard assistance as patient completes activ ity. Assistance may be provided throughout the activity or intermittently. 3-Partial/Moderate Assistance-helper does LESS THAN HALF the effort. [place] lifts, holds or supports trunk or limbs, but provides less than half the effort. 2-Substantial/Maximal Assistance-helper does MORE THAN HALF the effort. [place] lifts or holds trunk or limbs and provides more than half the effort. 1-Lrlbtacik-vzfqee does ALL the effort. Patient does none of the effort to complete the activity. Or, the assistance of 2 or more helpers is required for the patient to complete the activity. If activity was not attempted, code reason: 7-Patient Refused. 9-Not Applicable-not attempted and the patient did not perform the activity before the current illness, exacerbation or injury. 10-Not Attempted due to Environmental Limitations-(lack of equipment, weather restraints, etc.). 88-Not Attempted due to Medical Conditions or Safety Concerns. Roll Left & Right (QC): 5 Sit to Lying (QC): 5 Lying to Sitting/Side of Bed(Q: 5 Sit to Stand (QC): 5 Chair/Mhq-ve-Oorgv Xfer(QC): 5 Toilet Transfer (QC): 5 Car Transfer (QC): 4 Weight Bearing Left Lower Extremity: Left Weight Bearing/Tolerated NWB LUE but can bear weight on elbow Gait Training Does the Patient Walk?: Yes Distance: 240 feet Walk 10 feet (QC): 5 Walk 50 ft with 2 Turns(QC): 5 Walk 150 ft (QC): 5 Walking 10ft/uneven surface-QC: 4 Gait Persons Needed: 1 Gait Assistive Device: Walker Platform Wheelchair Training Does the Pt Use a Wheelchair?: No Wheel 50 ft with 2 turns (QC): 88 Wheel 150 ft (QC): 88 Stair Training #of Steps: 4 1 Step (curb) (QC): 4 4 Steps (QC): 88 12 Steps (QC): 88 Stairs: Pattern: Step to Balance Picking up an Object (QC): 6 Exercises Seated Therapy Exercises: Ankle pumps, Long arc quads, Hip flexion, Hamstring Curls, Hip abd/add, Glut set Seated Reps: 20 Assessment Current Status: Good Progress Patient tolerated treatment well. Demonstrates good overall improvement with gait, including stairs, improved bed mobility and transfers and improved tolerance to activity. Patient performs all bed mobility and transfers with SBA except car transfer with CGA. Patient ambulates 240 feet with left platform FWW, with SBA and verbal cues for progression and motivation. Patient ascends/descends 4 steps with bilateral handrails with CGA and verbal cues. When asked if she could attempt more steps patient declined stating she was too tired. Patient performs LE therapeutic exercise as listed above. Patient in recliner post treatment with all needs met, nursing notified, call light in reach, and in the room. PT Short Term Goals Short Term Goals Time Frame: Sep 05, 2021 Roll Left & Right: 3 (MET) Sit to lyin (MET) Lying to sitting on side of be: 3 (MET) Sit to stand: 3 (MET) Chair/oob-yp-eajtg transfer: 3 (MET) Walk 10 feet: 3 (MET) PT Assisted Goals Process Tech Goals PT Process Tech Goals Time Frame: Sep 19, 2021 Roll Left & Right (QC): 3 (Moisés) Sit to Lying (QC): 3 (Moisés) Lying-Sitting on Side/Bed(QC): 3 (Moisés) Sit to Stand (QC): 3 (Moisés) Chair/Bfh-tj-Wnmpo Xfer(QC): 3 (Moisés) Toilet Transfer (QC): 3 (Moisés) Car Transfer (QC): 3 (Moisés) Does the Patient Walk: Yes Walk 10 feet (QC): 3 (Moisés) Walk 50ft with 2 Turns (QC): 3 (Moisés) Walk 150 ft (QC): 88 (MET) Walking 10ft on Uneven Surface: 3 (Moisés) 1 Step (curb) (QC): 3 (Moisés) 4 Steps (QC): 88 12 Steps (QC): 88 Picking up an Object (QC): 88 Wheel 50 feet with 2 turns (QC: 5 (MET) Wheel 150 feet: 5 (MET) PT Plan Treatment/Plan Treatment Plan: Continue Plan of Care Treatment Plan: Bed Mobility, Education, Functional Activity Sheyla, Functional Strength, Group Therapy, Gait, Safety, Therapeutic Exercise, Transfers Treatment Duration: Sep 19, 2021 Frequency: At least 5 of 7 days/Wk (IRF) Estimated Hrs Per Day: 1.5 hours per day Patient and/or Family Agrees t: Yes Safety Risks/Education Patient Education: Gait Training, Transfer Techniques, Steps Teaching Recipient: Patient, Family Teaching Methods: Demonstration, Discussion Response to Teaching: Verbalize Understanding, Return Demonstration Time/GCodes Time In: 1000 Time Out: 1100 Total Billed Treatment Time: 60 Total Billed Treatment Visit, Gait x 2, Ex, FA SARAH CHAVARRIA PT Sep 12, 2021 13:10
--- NOTE | 2021-09-12 14:48 | Physical Therapy Daily Note ---
PT Daily Note-Current Subjective Pt in recliner upon arrival w/ spouse in room and agrees to tx. Pt ready to DC tomorrow. Mental Status Patient Orientation: Person, Place, Time, Situation Transfers SCALE: Activities may be completed with or without assistive devices. 3-Iqbdfmnsbv-pdrbvas completes the activity by him/herself with no assistance from a helper. 5-Set-up or Clean-up Assistance-helper sets up or cleans up; patient completes activity. [place] assists only prior to or following the activity. 4-Supervision or Touching Assistance-helper provides verbal cues and/or touching/steadying and/or contact guard assistance as patient completes activity. Assistance may be provided throughout the activity or intermittently. 3-Partial/Moderate Assistance-helper does LESS THAN HALF the effort. [place] lifts, holds or supports trunk or limbs, but provides less than half the effort. 2-Substantial/Maximal Assistance-helper does MORE THAN HALF the effort. [place] lifts or holds trunk or limbs and provides more than half the effort. 8-Higabcrpc-pcodsv does ALL the effort. Patient does none of the effort to complete the activity. Or, the assistance of 2 or more helpers is required for the patient to complete the activity. If activity was not attempted, code reason: 7-Patient Refused. 9-Not Applicable-not attempted and the patient did not perform the activity before the current illness, exacerbation or injury. 10-Not Attempted due to Environmental Limitations-(lack of equipment, weather restraints, etc.). 88-Not Attempted due to Medical Conditions or Safety Concerns. Sit to Stand (QC): 5 Weight Bearing Left Lower Extremity: Left Weight Bearing/Tolerated NWB LUE but can bear weight on elbow Gait Training Does the Patient Walk?: Yes Distance: 200', 100' Walk 10 feet (QC): 5 Walk 50 ft with 2 Turns(QC): 5 Walk 150 ft (QC): 5 Gait Assistive Device: Walker Platform Wheelchair Training Does the Pt Use a Wheelchair?: No Exercises NuStep Minutes: 13 NuStep Workload: 6 Treatments Pt amb 100' to therapy gym and completes NuStep at WL of 6 for 13 minutes. Pt amb 200' w/ platform FWW w/ forward flexed posture and shuffling gait, doesn't correct w/ VC. Pt returns to recliner in room and is left with all needs met, call light in hand. Assessment Current Status: Good Progress Pt can safely transfer and amb SBA. Pt increasing endurance, gait, and mobility PT Short Term Goals Short Term Goals Time Frame: Sep 05, 2021 Roll Left & Right: 3 (MET) Sit to lyin (MET) Lying to sitting on side of be: 3 (MET) Sit to stand: 3 (MET) Chair/bvw-um-qqsjv transfer: 3 (MET) Walk 10 feet: 3 (MET) PT Prison Goals Office Messenger Helper Goals PT Prison Goals Time Frame: Sep 19, 2021 Roll Left & Right (QC): 3 (Moisés) Sit to Lying (QC): 3 (Moisés) Lying-Sitting on Side/Bed(QC): 3 (Moisés) Sit to Stand (QC): 3 (Moisés) Chair/Yuj-sp-Vztrq Xfer(QC): 3 (Moisés) Toilet Transfer (QC): 3 (Moisés) Car Transfer (QC): 3 (Moisés) Does the Patient Walk: Yes Walk 10 feet (QC): 3 (Moisés) Walk 50ft with 2 Turns (QC): 3 (Moisés) Walk 150 ft (QC): 88 (MET) Walking 10ft on Uneven Surface: 3 (Moisés) 1 Step (curb) (QC): 3 (Moisés) 4 Steps (QC): 88 12 Steps (QC): 88 Picking up an Object (QC): 88 Wheel 50 feet with 2 turns (QC: 5 (MET) Wheel 150 feet: 5 (MET) PT Plan Treatment/Plan Treatment Plan: Continue Plan of Care Treatment Plan: Bed Mobility, Education, Functional Activity Sheyla, Functional Strength, Group Therapy, Gait, Safety, Therapeutic Exercise, Transfers Treatment Duration: Sep 19, 2021 Frequency: At least 5 of 7 days/Wk (IRF) Estimated Hrs Per Day: 1.5 hours per day Patient and/or Family Agrees t: Yes Time/GCodes Time In: 1430 Time Out: 1500 Total Billed Treatment Time: 30 Total Billed Treatment 1, GT, SUMANTH Ruby FORM TAMPING MACHINE OPERATOR Sep 12, 2021 14:48
[2021-09-12 19:29] VITALS: BP 138/65
[2021-09-12] MEDS: SIMvastatin 20 MG (ZOCOR) TAB PO SCH (20:31)
[2021-09-12] MEDS: LATANOPROST 0.005% (XALATAN) OPHTH SOLN 2.5 ML OU SCH (21:23)
[2021-09-12] MEDS: MELATONIN 3 MG TABLET PO PRN (23:30)
[2021-09-13] MEDS ORDERED: FURO20TA4 PO (06:10)
[2021-09-13] MEDS ORDERED: ACHD5005 PO (06:10)
[2021-09-13] MEDS ORDERED: AMIO400T5 PO (06:10)
[2021-09-13] MEDS ORDERED: APIX5TAB PO (06:10)
[2021-09-13] MEDS ORDERED: DILT240C91 PO (06:10)
--- NOTE | 2021-09-13 06:12 | D/C HH Face to Face Order ---
D/C Face to Face Orders Reconcile Patient Problems Problems Reviewed?: Yes Instructions for Patient Via [facility], Patient Instructions/FollowUp: pcp 2 weeks Physician to follow Patient: pcp Discharge Diet for Home: No Restrictions Patient Problems: Hip fracture Patient Data-Allergies,Ht & Wt Patient Allergies: Coded Allergies: No Known Drug Allergies (Unverified , 01/17/19) Height (Feet): 5 Height (Inches): 9.00 Weight (Pounds): 175 Weight (Ounces): 0.0 Home Health Need/Face to Face Date of Face to Face: Sep 13, 2021 Clinical Findings: Generalized weakness and fatigue, Instability, Muscle weakness, Pain with ambulation, Unsteady gait I have seen Pt ohag-rl-xrsu: Yes Discharged To: Home Diagnosis/Conditions: hip fx Patient is Homebound due to: [place] fall risk due to instabilty, Muscle weakness, Pain w/ambulation Homebound Status Due to the above stated illness, injury or surgical procedure (medical condition or diagnosis) and associated clinical findings, the patient is homebound because of his/her inability to leave home except with aid of a supportive device and/or person AND leaving the home requires a considerable and taxing effort or is medically contraindicated. Pt req the following assistanc: Walker Home Health Nursing Orders Home Health Services Order: Nursing Services, Community Organization Aide-Evaluate & Treat, Physical Therapy-Evaluate & Treat Certify Stmt I certify that this patient is under my care and that I, a nurse practitioner or a physician; a visitor services information assistant working with me, had a face to face encounter that - meets the physician face to face encounter requirements with this patient as dated. JENIFFER VAZ DO Sep 13, 2021 06:12
[2021-09-13] MEDS: CYANOCOBALAMIN 1,000 MCG (VITAMIN B-12) TABLET PO SCH (06:46)
[2021-09-13] MEDS: KCL 10 MEQ TAB (MICRO K) PO SCH (06:46)
[2021-09-13 07:54] VITALS: BP 143/65
[2021-09-13] MEDS: VITAMIN D3 125 MCG (5,000 UNITS) CAPSULE PO SCH (07:55)
[2021-09-13] MEDS: CALCIUM CARB + VIT D 600 MG (CALCARB + D) TAB PO SCH (07:55)
[2021-09-13] MEDS: AMIODARONE 200 MG (CORDARONE) TAB PO SCH (07:55)
[2021-09-13] MEDS: PANTOPRAZOLE 40 MG (PROTONIX) TAB PO SCH (07:55)
[2021-09-13] MEDS: APIXABAN 5 MG (ELIQUIS) TABLET PO SCH (07:55)
[2021-09-13] MEDS: TIMOLOL MALEATE 0.5% 5 ML (TIMOPTIC) BTL OU SCH (07:56)
[2021-09-13] MEDS: polyethylene glycoL POWDER 17 GM (MIRALAX) PACK PO SCH (09:00)
[2021-09-13] MEDS: SENNA W/DOCUSATE (SENOKOT S) TABLET PO SCH (09:00)
[2021-09-13] MEDS: DOCUSATE SODIUM 100 MG (COLACE) CAP PO SCH (09:00)
--- NOTE | 2021-09-13 10:40 | Discharge Summary ---
Diagnosis/Chief Complaint Date of Admission Aug 29, 2021 at 12:09 Date of Discharge Discharge Date: Sep 13, 2021 Discharge Diagnosis Assessment: Left hip fracture Left wrist fracture Fall Postop pneumonia New onset atrial fibrillation with rapid ventricular response status post cardioversion unsuccessful and amiodarone drip x48 hours and spontaneously converted to normal sinus rhythm Oral anticoagulation for stroke prophylaxis Postop anemia Iron deficiency Hypothyroidism but low TSH placing patient at risk for atrial fibrillation so holding 25 mcg dose Depression situational type with decreased motivation IV infiltration right arm Plan: Monitor labs Iron supplement Oxygen Rehab protocol Cardiology appreciated Telemetry 08/30/2021: Supportive care Pain control Therapy regimen 08/31/2021: Transition to oral antibiotics K pad and ice to right arm 09/01/21: Monitor closely Pain control 09/02/21: Supportive care Kpad to right arm Imodium 09/03/21: Improved status Increase independence 09/04/2021: Continue pain control Aggressive therapy 09/05/2021: Continue meds Supportive care 09/06/21: DC planned for next week 09/07/2021: Supportive care Discharge plan soon 09/08/2021: Dramatic improvement since admit Monitor closely 09/09/2021: Supportive care Discharge soon 09/10/2021: Discharge Thursday Supportive care 09/11/2021: Discharge plan for Thursday Use walker with platform at discharge 09/12/2021: Discharge tomorrow (1) Hip fracture Status: Acute (2) Pneumonia (3) Anemia due to acute blood loss (4) Iron deficiency (5) Low TSH level (6) Afib (7) HLD (hyperlipidemia) (8) Essential (primary) hypertension (9) Hypothyroidism (10) Wrist fracture Status: Acute (11) Osteoporosis Discharge Summary Discharge Physical Examination Allergies: Coded Allergies: No Known Drug Allergies (Unverified , 01/17/19) Vitals & I&Os Vital Signs Date Time Temp Pulse Resp B/P (MAP) Pulse Ox O2 Delivery O2 Flow Rate FiO2 09/13/21 08:50 Room Air 09/13/21 07:54 36.9 80 16 143/65 (91) 96 General Appearance: Alert, Oriented X3, Cooperative Respiratory: Clear to Auscultation Cardiovascular: Regular Rate Psych/Mental Status: Mental Status NL Hospital Course Was the Problem List Reviewed?: Yes Hospital course: Patient had a lengthy hospital course following left hip fracture and left wrist fracture complicated with transfer to ICU after 1 day in inpatient rehab for new onset atrial fibrillation with rapid ventricular response along with pneumonia and hypoxia. She was returned back to inpatient rehab and participated in therapy and had slow recovery. She used walker with platform which was very helpful due to the left wrist fracture. Labs remained stable. IV iron infusions completed. Pneumonia treatment completed. No significant events occurred during hospital stay cardiology still manage the atrial fibrillation and no other concerns reported so she was stable for discharge. Labs (last 24 hrs) Laboratory Tests 08/30/21 05:42: White Blood Count 13.7H, Red Blood Count 2.76L, Hemoglobin 8.2L, Hematocrit 26L, Mean Corpuscular Volume 92, Mean Corpuscular Hemoglobin 30, Mean Corpuscular Hemoglobin Concent 32, Red Cell Distribution Width 14.4, Platelet Count 309, Mean Platelet Volume 9.2, Immature Granulocyte % (Auto) 2, Neutrophils (%) (Auto) 75, Lymphocytes (%) (Auto) 14, Monocytes (%) (Auto) 9, Eosinophils (%) ( Auto) 0, Basophils (%) (Auto) 0, Neutrophils # (Auto) 10.3H, Lymphocytes # (Auto) 1.8, Monocytes # (Auto) 1.2H, Eosinophils # (Auto) 0.1, Basophils # (Auto) 0.0, Immature Granulocyte # (Auto) 0.3H, Sodium Level 135, Potassium Level 4.4, Chloride Level 103, Carbon Dioxide Level 21, Anion Gap 11, Blood Urea Nitrogen 13, Creatinine 0.68, Estimat Glomerular Filtration Rate 85, BUN/Creatinine Ratio 19, Glucose Level 111H, Calcium Level 8.8, Corrected Calcium 9.8, Magnesium Level 2.3, Total Bilirubin 0.7, Aspartate Amino Transf (AST/SGOT) 34, Alanine Aminotransferase (ALT/SGPT) 60H, Alkaline Phosphatase 132, Total Protein 5.6L, Albumin 2.8L 09/02/21 05:25: White Blood Count 14.7H, Red Blood Count 2.81L, Hemoglobin 8.3L, Hematocrit 26L, Mean Corpuscular Volume 94, Mean Corpuscular Hemoglobin 30, Mean Corpuscular Hemoglobin Concent 31L, Red Cell Distribution Width 16.1H, Platelet Count 437H, Mean Platelet Volume 9.1, Immature Granulocyte % (Auto) 2, Neutrophils (%) (Auto) 78H, Lymphocytes (%) (Auto) 13, Monocytes (%) (Auto) 6, Eosinophils (%) (Auto) 1, Basophils (%) (Auto) 0, Neutrophils # (Auto) 11.5H, Lymphocytes # (Auto) 1.9, Monocytes # (Auto) 0.9, Eosinophils # (Auto) 0.1, Basophils # (Auto) 0.0, Immature Granulocyte # (Auto) 0.3H, Sodium Level 135, Potassium Level 4.3, Chloride Level 103, Carbon Dioxide Level 23, Anion Gap 9, Blood Urea Nitrogen 17, Creatinine 0.69, Estimat Glomerular Filtration Rate 84, BUN/Creatinine Ratio 25, Glucose Level 98, Calcium Level 8.9, Corrected Calcium 9.8, Total Bilirubin 0.5, Aspartate Amino Transf (AST/SGOT) 39H, Alanine Aminotransferase (ALT/SGPT) 60H, Alkaline Phosphatase 166H, Total Protein 5.8L, Albumin 2.9L, Neutrophils % (Manual) 77, Lymphocytes % (Manual) 15, Monocytes % (Manual) 5, Eosinophils % (Manual) 1, Band Neutrophils 2, Nucleated Red Blood Cells 1, Clumped Platelets OCCASIONAL, Polychromasia MODERATE, Hypochromasia SLIGHT, Poikilocytosis SLIGHT, Anisocytosis SLIGHT, Microcytosis SLIGHT, Macrocytosis SLIGHT, Spherocytes SLIGHT 09/09/21 06:13: White Blood Count 9.1, Red Blood Count 2.99L, Hemoglobin 9.0L, Hematocrit 29L, Mean Corpuscular Volume 97, Mean Corpuscular Hemoglobin 30, Mean Corpuscular Hemoglobin Concent 31L, Red Cell Distribution Width 17.9H, Platelet Count 546H, Mean Platelet Volume 8.4L, Immature Granulocyte % (Auto) 1, Neutrophils (%) (Auto) 68, Lymphocytes (%) (Auto) 23, Monocytes (%) (Auto) 8, Eosinophils (%) (Auto) 1, Basophils (%) (Auto) 0, Neutrophils # (Auto) 6.2, Lymphocytes # (Auto) 2.1, Monocytes # (Auto) 0.7, Eosinophils # (Auto) 0.1, Basophils # (Auto) 0.0, Immature Granulocyte # (Auto) 0.1, Sodium Level 138, Potassium Level 4.6, Chloride Level 105, Carbon Dioxide Level 22, Anion Gap 11, Blood Urea Nitrogen 20H, Creatinine 0.78, Estimat Glomerular Filtration Rate 73, BUN/Creatinine Ratio 26, Glucose Level 95, Calcium Level 8.7, Corrected Calcium 9.3, Total Bilirubin 0.5, Aspartate Amino Transf (AST/SGOT) 23, Alanine Aminotransferase (ALT/SGPT) 37, Alkaline Phosphatase 276H, Total Protein 6.0L, Albumin 3.3 Pending Labs Laboratory Tests 08/30/21 05:42: White Blood Count 13.7, Red Blood Count 2.76, Hemoglobin 8.2, Hematocrit 26, Mean Corpuscular Volume 92, Mean Corpuscular Hemoglobin 30, Mean Corpuscular Hemoglobin Concent 32, Red Cell Distribution Width 14.4, Platelet Count 309, Mean Platelet Volume 9.2, Immature Granulocyte % (Auto) 2, Neutrophils (%) (Auto) 75, Lymphocytes (%) (Auto) 14, Monocytes (%) (Auto) 9, Eosinophils (%) (Auto) 0, Basophils (%) (Auto) 0, Neutrophils # (Auto) 10.3, Lymphocytes # (Auto) 1.8, Monocytes # (Auto) 1.2, Eosinophils # (Auto) 0.1, Basophils # (Auto) 0.0, Immature Granulocyte # (Auto) 0.3, Sodium Level 135, Potassium Level 4.4, Chloride Level 103, Carbon Dioxide Level 21, Anion Gap 11, Blood Urea Nitrogen 13, Creatinine 0.68, Estimat Glomerular Filtration Rate 85, BUN/Creatinine Ratio 19, Glucose Level 111, Calcium Level 8.8, Corrected Calcium 9.8, Magnesium Level 2.3, Total Bilirubin 0.7, Aspartate Amino Transf (AST/SGOT) 34, Alanine Aminotransferase (ALT/SGPT) 60, Alkaline Phosphatase 132, Total Protein 5.6, Albumin 2.8 09/02/21 05:25: White Blood Count 14.7, Red Blood Count 2.81, Hemoglobin 8.3, Hematocrit 26, Mean Corpuscular Volume 94, Mean Corpuscular Hemoglobin 30, Mean Corpuscular Hemoglobin Concent 31, Red Cell Distribution Width 16.1, Platelet Count 437, Mean Platelet Volume 9.1, Immature Granulocyte % (Auto) 2, Neutrophils (%) (Auto) 78, Lymphocytes (%) (Auto) 13, Monocytes (%) (Auto) 6, Eosinophils (%) (Auto) 1, Basophils (%) (Auto) 0, Neutrophils # (Auto) 11.5, Lymphocytes # (Auto) 1.9, Monocytes # (Auto) 0.9, Eosinophils # (Auto) 0.1, Basophils # (Auto) 0.0, Immature Granulocyte # (Auto) 0.3, Sodium Level 135, Potassium Level 4.3, Chloride Level 103, Carbon Dioxide Level 23, Anion Gap 9, Blood Urea Nitrogen 17, Creatinine 0.69, Estimat Glomerular Filtration Rate 84, BUN/Creatinine Ratio 25, Glucose Level 98, Calcium Level 8.9, Corrected Calcium 9.8, Total Bilirubin 0.5, Aspartate Amino Transf (AST/SGOT) 39, Alanine Aminotransferase (ALT/SGPT) 60, Alkaline Phosphatase 166, Total Protein 5.8, Albumin 2.9, Neutrophils % (Manual) 77, Lymphocytes % (Manual) 15, Monocytes % (Manual) 5, Eosinophils % (Manual) 1, Band Neutrophils 2, Nucleated Red Blood Cells 1, Clumped Platelets OCCASIONAL, Polychromasia MODERATE, Hypochromasia SLIGHT, Poikilocytosis SLIGHT, Anisocytosis SLIGHT, Microcytosis SLIGHT, Macrocytosis SLIGHT, Spherocytes SLIGHT 09/09/21 06:13: White Blood Count 9.1, Red Blood Count 2.99, Hemoglobin 9.0, Hematocrit 29, Mean Corpuscular Volume 97, Mean Corpuscular Hemoglobin 30, Mean Corpuscular Hemoglobin Concent 31, Red Cell Distribution Width 17.9, Platelet Count 546, Mean Platelet Volume 8.4, Immature Granulocyte % (Auto) 1, Neutrophils (%) (Auto) 68, Lymphocytes (%) (Auto) 23, Monocytes (%) (Auto) 8, Eosinophils (%) (Auto) 1, Basophils (%) (Auto) 0, Neutrophils # (Auto) 6.2, Lymphocytes # (Auto) 2.1, Monocytes # (Auto) 0.7, Eosinophils # (Auto) 0.1, Basophils # (Auto) 0.0, Immature Granulocyte # (Auto) 0.1, Sodium Level 138, Potassium Level 4.6, Chloride Level 105, Carbon Dioxide Level 22, Anion Gap 11, Blood Urea Nitrogen 20, Creatinine 0.78, Estimat Glomerular Filtration Rate 73, BUN/Creatinine Ratio 26, Glucose Level 95, Calcium Level 8.7, Corrected Calcium 9.3, Total Bilirubin 0.5, Aspartate Amino Transf (AST/SGOT) 23, Alanine Aminotransferase (ALT/SGPT) 37, Alkaline Phosphatase 276, Total Protein 6.0, Albumin 3.3 Discharge Home Medications: Active Scripts Active Xarelto (Rivaroxaban) 20 Mg Tablet 20 Mg PO DAILY HYDROcodone/APAP 5 MG/325 MG TAB (Acetaminophen/Hydrocodone Bitart) 1 Tab Tab 1 Ea PO Q4H PRN Diltiazem 24Hr ER (Diltiazem HCl) 240 Mg Cap.er.24h 240 Mg PO DAILY Amiodarone HCl 400 Mg Tablet 400 Mg PO DAILY Furosemide 20 Mg Tablet 20 Mg PO DAILY PRN Reported Potassium Chloride 10 Meq Tab.er.prt 10 Meq PO DAILY Pantoprazole Sodium 40 Mg Tablet.dr 40 Mg PO DAILY Vitamin D3 (Cholecalciferol (Vitamin D3)) 125 Mcg Capsule 125 Mcg PO DAILY Xalatan (Latanoprost) 2.5 Ml Drops 1 Drop OU HS Josue Mag Zinc + D3 Tablet (Calcium Carb/D3/Magnesium/Zinc) 1 Each Tablet 1 Tab PO DAILY Timolol Maleate 0.5% (Timolol Maleate) 5 Ml Drops 1 Drop OU BID Simvastatin 20 Mg Tablet 20 Mg PO HS Instructions to patient/family Please see electronic discharge instructions given to patient. Diagnosis/Problems Diagnosis/Problems (1) Hip fracture Status: Acute (2) Pneumonia (3) Anemia due to acute blood loss (4) Iron deficiency (5) Low TSH level (6) Afib (7) HLD (hyperlipidemia) (8) Essential (primary) hypertension (9) Hypothyroidism (10) Wrist fracture Status: Acute (11) Osteoporosis JENIFFER VAZ DO Sep 13, 2021 10:40
[2021-09-13] MEDS ORDERED: RIVA20TA PO (11:45)
--- NOTE | 2021-09-13 11:49 | Therapy Team Discharge Summary ---
Therapy Discharge Summary Discharge Recommendations Date of Discharge Sep 13, 2021 at 10:36 Physical Therapy Patient came to rehab with L hip fx, s/p IM nail, A-fib with RVR. Upon evaluation patient performed bed mobility and supine <-> sit with max assist, sit <-> stand max assist, stand pivot transfers max assist, and propelled a manual WC 100' with SBA. Patient has been performing bed mobility and transfer training, balance and endurance training, functional strengthening, gait training, and education. 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 Now, patient performs rolling and supine <-> sit with SBA, sit <-> stand and transfers with SBA, car transfer CGA, ambulates 240' with a platform walker with SBA (including 50' with at least 2 turns of 90 degrees but needs CGA for 10' over an uneven surface), patient can go up and down 4 steps using 2 handrails with CGA, and can fruit or nut picker an object from the floor with ind ependence using a delivery driver/customer service. Patient has been discharged from this facility and will be discharged from PT at this time. Occupational Therapy Impaired Self-Care Skills, Restricted Funct UE ROM PT Space Engineer Goals Intermediate Goals PT Space Engineer Goals Time Frame: Sep 19, 2021 Roll Left to Right (QC): 3 (Moisés) Sit to Lying (QC): 3 (Moisés) Lying-Sitting on Side/Bed(QC): 3 (Moisés) Sit to Stand (QC): 3 (Moisés) Chair/Uxx-fl-Teqow Xfer(QC): 3 (Moisés) Car Transfer (QC): 3 (Moisés) Does the Patient Walk: Yes Walk 10 feet (QC): 3 (Moisés) Walk 10ft-Uneven Surface(QC): 3 (Moisés) Walk 50ft with 2 Turns (QC): 3 (Moisés) Walk 150 ft (QC): 88 (MET) Wheel 50 feet with 2 turns (QC: 5 (MET) 1 Step (curb) (QC): 3 (Moisés) 4 Steps (QC): 88 12 Steps (QC): 88 Picking up an Object (QC): 88 OT Intermediate Goals Intermediate Goals Time Frame: Sep 26, 2021 Eating (QC): 6 (met) Oral Hygiene (QC): 5 (met) Shower/Bathe Self (QC): 4 (met) Upper Body Dressing (QC): 4 (met) Lower Body Dressing (QC): 4 (met) On/Off Footwear (QC): 4 (met) Toileting Hygiene (QC): 4 (met) Toilet/Commode Transfer (QC): 3 (Moisés) 1=Demonstrate adherence to instructed precautions during ADL tasks. 2=Patient will verbalize/demonstrate understanding of assistive devices/modifications for ADL. 3=Patient will improve strength/tolerance for activity to enable patient to perform ADL's. LOLLY BOND PT Sep 13, 2021 11:49
--- NOTE | 2021-09-13 13:44 | Therapy Team Discharge Summary ---
Therapy Discharge Summary Discharge Recommendations Date of Discharge Sep 13, 2021 at 10:36 Therapy D/C Recommendations: Occupational Therapy Home Care Occupational Therapy Patient came to rehab with L hip fx, s/p IM nail, A-fib with RVR. Upon evaluation patient was dependent for toileting, transfers, footwear, lower body dressing, bathing, and oral care, she was max a for upper body dressing and set up for eating. While on rehab, OT focused on improving balance, strength, endurance, adaptive strategies, energy conservation, and compensatory daniel hniques. Pt made good progress while here and has met all of her fdc goals. Now, she performs toileting/transfer, LB dressing, and bathing with sba- cga, is set up for footwear, and indep with eating and oral care. Min a needed to fasten bra only, pt able to complete all other Upper body dressing without assist. Patient has been discharged from this facility and will be discharged from OT at this time. Impaired Self-Care Skills, Restricted Funct UE ROM PT Form Tamper Operator Goals Form Tamper Operator Goals PT Form Tamper Operator Goals Time Frame: Sep 19, 2021 Roll Left to Right (QC): 3 (Moisés) Sit to Lying (QC): 3 (Moisés) Lying-Sitting on Side/Bed(QC): 3 (Moisés) Sit to Stand (QC): 3 (Moisés) Chair/Ewt-fc-Jvsat Xfer(QC): 3 (Moisés) Car Transfer (QC): 3 (Moisés) Does the Patient Walk: Yes Walk 10 feet (QC): 3 (Moisés) Walk 10ft-Uneven Surface(QC): 3 (Moisés) Walk 50ft with 2 Turns (QC): 3 (Moisés) Walk 150 ft (QC): 88 (MET) Wheel 50 feet with 2 turns (QC: 5 (MET) 1 Step (curb) (QC): 3 (Moisés) 4 Steps (QC): 88 12 Steps (QC): 88 Picking up an Object (QC): 88 OT Detention Goals Detention Goals Time Frame: Sep 26, 2021 Eating (QC): 6 (met) Oral Hygiene (QC): 5 (met) Shower/Bathe Self (QC): 4 (met) Upper Body Dressing (QC): 4 (met) Lower Body Dressing (QC): 4 (met) On/Off Footwear (QC): 4 (met) Toileting Hygiene (QC): 4 (met) Toilet/Commode Transfer (QC): 3 (Moisés) 1=Demonstrate adherence to instructed precautions during ADL tasks. 2=Patient will verbalize/demonstrate understanding of assistive devices/modifications for ADL. 3=Patient will improve strength/tolerance for activity to enable patient to perform ADL's. Nita Buchanan OT Sep 13, 2021 13:44
== END 2021-09-13 10:36 | disposition home health service (06) | DRG 559 ==
PROVIDERS: ADMIT Internal Medicine; ATTEND Internal Medicine
DX: S72.142D Displaced intertrochanteric fracture of left femur, subsequent encounter for closed fracture with routine healing (principal); J18.1 Lobar pneumonia, unspecified organism; D62 Acute posthemorrhagic anemia; S52.502D Unspecified fracture of the lower end of left radius, subsequent encounter for closed fracture with routine healing; I48.91 Unspecified atrial fibrillation; I10 Essential (primary) hypertension; M81.0 Age-related osteoporosis without current pathological fracture; E89.0 Postprocedural hypothyroidism; I08.1 Rheumatic disorders of both mitral and tricuspid valves; Z85.3 Personal history of malignant neoplasm of breast; F43.21 Adjustment disorder with depressed mood; T80.89XA Other complications following infusion, transfusion and therapeutic injection, initial encounter; Z23 Encounter for immunization
CPT/HCPCS: 36415; 80053; 83735; 85007; 85025; 85027; 94640; 94760

== ENCOUNTER → 2021-09-19 | Outpatient (CLI) | payer MEDICARE ==
[~2021-09-19] MED LIST changes: +ALBU2.5V4 INH; +AMIO200T6 PO; +AMIO400T5 PO; +APIX5TAB PO; +CEFE1FRO IV; +CYAN-41 PO; +DILT240C91 PO; +IRON100V2 IV; +RIVA20TA PO
--- NOTE | 2021-09-19 09:29 | Diagnostic Imaging Report ---
INDICATION: Followup left wrist fracture. TIME OF EXAM: 9:06 AM Correlation is made with prior radiograph from 08/21/2021. The wrist is encased in a fiberglass cast obscuring bone detail. There is some healing of a comminuted impacted distal radius fracture. There appears to be some increasing sclerosis at the fracture site but fracture lines remain clearly visible. A chronic changes of the carpus are identified. There are cystic changes in the scaphoid and lunate. The triscaphe and 1st MC joint degenerative changes are noted. Fracture of the ulnar styloid is unchanged but shows normal anatomic alignment. IMPRESSION: Distal radius and ulnar fractures, as described. There appears to be some healing of the distal radius fracture with some sclerosis but fracture lines remain clearly visible. Dictated by: Dictated on workstation # [id number]
--- NOTE | 2021-09-19 09:30 | Diagnostic Imaging Report ---
Indication: Follow-up left hip fracture. TIME OF EXAM: 9:10 AM Comparison is made with pelvis and left hip radiograph from 08/21/2021. Since prior study patient's ongoing left hip surgery. There is intramedullary edmundo with compression screw transfixing the left hip intertrochanteric fracture. A separate fragment involving the lesser trochanter is noted which does show some slight medial displacement. Femoral acetabular alignment is normal. Joint spaces are maintained. A left-sided rami are intact. IMPRESSION: Satisfactory postop appearance to left hip fracture. Dictated by: Dictated on workstation # [id number]
== END ==
LOC: ORTHO 08:47
PROVIDERS: ATTEND Orthopaedic Surgery
DX: Z09 Encounter for follow-up examination after completed treatment for conditions other than malignant neoplasm (principal); S52.612D Displaced fracture of left ulna styloid process, subsequent encounter for closed fracture with routine healing; S52.502D Unspecified fracture of the lower end of left radius, subsequent encounter for closed fracture with routine healing; M18.12 Unilateral primary osteoarthritis of first carpometacarpal joint, left hand; Z98.890 Other specified postprocedural states; X58.XXXD Exposure to other specified factors, subsequent encounter
CPT/HCPCS: 73110; 73502

== ENCOUNTER → 2021-10-17 | Outpatient (CLI) | payer MEDICARE ==
[~2021-10-17] MED LIST changes: -AMIO200T6 PO; +AMIO200T65 PO; -POTA10TA36 PO; +POTA10TA37 PO
--- NOTE | 2021-10-17 12:52 | Diagnostic Imaging Report ---
INDICATION: Left wrist injury. TIME OF EXAM: 12:14 PM Correlation is made with prior radiograph from 09/19/2021. FINDINGS: The previously noted left wrist Fiberglas cast has been removed. There is a healing fracture of the distal radius. There is sclerosis at the fracture site consistent with healing although fracture line does remain partly visible. Fracture alignment is stable. There is ununited fracture of the ulnar styloid. Severe degenerative changes at the triscaphe and 1st CMC joints of the carpus are noted. There does appear to be some slight widening of the scapholunate space which could indicate some mild scapholunate dissociation. Metacarpals are intact. IMPRESSION: 1. Healing distal radius fracture showing near anatomic alignment. 2. Ununited ulnar styloid fracture. 3. Carpal degenerative changes. There is some mild widening of the scapholunate space, as described. Dictated by: Dictated on workstation # [id number]
--- NOTE | 2021-10-17 12:53 | Diagnostic Imaging Report ---
INDICATION: Left hip surgery. TIME OF EXAM: 12:17 PM Correlation is made with prior radiograph from 09/19/2021. FINDINGS: There is intramedullary edmundo and compression screw transfixing left hip. A fracture through the intertrochanteric hip is again noted but is blurred consistent with healing. Overall alignment is anatomic. Left-sided rami are intact. IMPRESSION: Postop changes left hip, as described. Dictated by: Dictated on workstation # [id number]
== END ==
LOC: ORTHO 11:30
PROVIDERS: ATTEND Orthopaedic Surgery
DX: S52.532D Colles' fracture of left radius, subsequent encounter for closed fracture with routine healing (principal); M18.12 Unilateral primary osteoarthritis of first carpometacarpal joint, left hand; X58.XXXD Exposure to other specified factors, subsequent encounter
CPT/HCPCS: 73110; 73502

== ENCOUNTER → 2021-10-29 | Outpatient (CLI) | payer MEDICARE ==
[~2021-10-29] VITALS: Ht 175 cm; Wt 88.0 kg
[~2021-10-29] MED LIST changes: +CATHETER FLUSH 10 ML SYR IV PRN; +REGADENOSON 0.4 MG/5 ML SYR (LEXISCAN) IV ONE
[2021-10-29 13:14] VITALS: BP 183/76
--- NOTE | 2021-10-30 12:40 | STRESS TEST ---
DATE OF SERVICE: 10/29/2021 RESTING AND POST REGADENOSON TECHNETIUM-99M TETROFOSMIN SPECT CT IMAGING ORDERING PHYSICIAN: Amy Hickman APRN PRIMARY PHYSICIAN: Dr. Olson. CLINICAL DIAGNOSIS: Chest discomfort. Baseline images were carried out after injection of 9.84 mCi of technetium-99m Tetrofosmin. This was followed by 0.4 mg regadenoson and 30.3 mCi of technetium-99m Tetrofosmin for stress imaging. The electrocardiogram showed sinus rhythm at baseline. It did not change significantly with the regadenoson infusion. The patient noted some shortness of breath following regadenoson infusion, which resolved in a few minutes. Review of images at rest and following stress does not indicate any significant perfusion defects consistent with myocardial ischemia or infarction. Gated images show normal to hyperdynamic left ventricular systolic function with a calculated ejection fraction 83%. CONCLUSIONS: 1. No evidence of any significant myocardial ischemia or infarction on this study. 2. Normal to hyperdynamic left ventricular systolic function with a calculated ejection fraction 83%. Job ID: [id number] DocumentID: [id number] Dictated Date: 10/30/2021 08:53:11 Political Science Instructor Date: 10/30/2021 12:39:45 Dictated By: YUNIOR VICTOR MD, MA, FACP, FACC,
== END ==
LOC: CARD 11:45
PROVIDERS: ATTEND Nurse Practitioner Family
DX: R07.89 Other chest pain (principal)
CPT/HCPCS: 78452; 93017; A9502

== ENCOUNTER 2021-11-13 13:39 | Outpatient (RCR) | payer MEDICARE ==
[~2021-11-13 13:39] MED LIST changes: -CATHETER FLUSH 10 ML SYR IV PRN; -REGADENOSON 0.4 MG/5 ML SYR (LEXISCAN) IV ONE
== END 2021-11-15 | disposition still patient (30) ==
PROVIDERS: ATTEND Orthopaedic Surgery
DX: S52.532D Colles' fracture of left radius, subsequent encounter for closed fracture with routine healing (principal); X58.XXXD Exposure to other specified factors, subsequent encounter

== ENCOUNTER → 2021-11-21 | Outpatient (CLI) | payer MEDICARE ==
--- NOTE | 2021-11-21 10:26 | Diagnostic Imaging Report ---
EXAMINATION: Left wrist at 9:35 AM INDICATION: Follow-up fracture 3 views were obtained. The prior exam of 10/17/2021 noted a healing fracture of the distal radius an ununited ulnar styloid fracture. Those findings are again evident on this study. There is perhaps slightly greater callus formation about the distal radius fracture fragment than noted on the prior exam. The main fracture fragments are unchanged in alignment. The ulnar styloid avulsion fracture seen previously is no different than on the prior study. There is no acute bony abnormality appreciated. The degenerative changes involving the radiocarpal bone, the lunate, the capitate, the navicular and triscaphe joint seen previously are again evident and stable. IMPRESSION: 1. There has been some further healing of the fracture of the distal radius since the prior exam. However, the fracture line is still partially visualized indicating that healing is not complete. The ulnar styloid fracture is no different. 2. There is no acute bony abnormality appreciated. Dictated by: Dictated on workstation # [id number]
--- NOTE | 2021-11-21 11:48 | Diagnostic Imaging Report ---
Left hip at 938 hours. INDICATION: Hip pain. AP and lateral views were obtained. FINDINGS: The postsurgical and posttraumatic changes involving the left hip seen on the prior exam of 10/17/2021 are again evident and not significantly changed. The orthopedic hardware remains in good position. There is a partially healed avulsion fracture of the lesser trochanter and there is also healing callus formation about the fracture involving the greater trochanter. The nondisplaced fracture of the femoral head seen previously is again visualized. There is no acute bony abnormality noted. The soft tissues are unremarkable. IMPRESSION: 1. The postsurgical and posttraumatic changes involving the left hip seen previously are again evident and no different. The fracture lines are still visible indicating that the fractures have not healed completely. 2. There is no acute bony abnormality noted. Dictated by: Dictated on workstation # [id number]
== END ==
LOC: ORTHO 09:11
PROVIDERS: ATTEND Orthopaedic Surgery
DX: S52.502D Unspecified fracture of the lower end of left radius, subsequent encounter for closed fracture with routine healing (principal); S52.612D Displaced fracture of left ulna styloid process, subsequent encounter for closed fracture with routine healing; X58.XXXD Exposure to other specified factors, subsequent encounter
CPT/HCPCS: 73110; 73502

== ENCOUNTER → 2021-12-16 | Outpatient (RCR) | payer MEDICARE | END | disposition home or self-care (01) | PROVIDERS: ATTEND Orthopaedic Surgery | DX: S52.532D Colles' fracture of left radius, subsequent encounter for closed fracture with routine healing (principal); X58.XXXD Exposure to other specified factors, subsequent encounter ==

== ENCOUNTER → 2021-12-27 | Outpatient (CLI) | payer MEDICARE | LOC: ORTHO 11:51 | PROVIDERS: ATTEND Orthopaedic Surgery | DX: Z47.89 Encounter for other orthopedic aftercare (principal); Z98.890 Other specified postprocedural states ==

== ENCOUNTER 2022-01-06 12:55 | Outpatient (RCR) | payer MEDICARE | END 2022-01-13 | disposition home or self-care (01) | PROVIDERS: ATTEND Orthopaedic Surgery | DX: S52.532D Colles' fracture of left radius, subsequent encounter for closed fracture with routine healing (principal); Z98.890 Other specified postprocedural states; X58.XXXD Exposure to other specified factors, subsequent encounter ==

== ENCOUNTER → 2022-01-14 | Outpatient (CLI) | payer MEDICARE ==
--- NOTE | 2022-01-14 13:57 | Diagnostic Imaging Report ---
INDICATION: Routine screening. COMPARISON: 01/11/2021 and 01/09/2020. TECHNIQUE: 2D and 3D bilateral screening mammography was performed with CAD. FINDINGS: Scattered fibroglandular densities are identified bilaterally. Scattered benign calcifications in both breasts are again noted. The area of post-therapeutic changes in the upper and slightly outer left breast at mid to posterior depth appears stable. Dystrophic calcifications are again noted. The benign nodule in the retroareolar left breast is stable. No spiculated mass is detected. No malignant-appearing microcalcifications are identified. IMPRESSION: Stable bilateral mammograms. No mammographic features suspicious for malignancy are identified. ACR BI-RADS Category 2: Benign findings. Result letter will be mailed to the patient. Note: At least 10% of breast cancer is not imaged by mammography. Dictated by: Dictated on workstation # [id number]
== END ==
LOC: RAD 09:14
PROVIDERS: ATTEND Internal Medicine Hematology & Oncology
DX: Z12.31 Encounter for screening mammogram for malignant neoplasm of breast (principal)
CPT/HCPCS: 77063; 77067

== ENCOUNTER → 2022-01-14 | Outpatient (CLI) | payer MEDICARE ==
[~2022-01-14] MED LIST changes: +HOLD METFORMIN - RECEIVED CONTRAST 20 ML VIAL IV SCH; +IOHEXOL 350 MG/ML 100 ML (OMNIPAQUE 350) VIAL IV ONE; +NS 100 ML (IVPB) BAG IV ONE
--- NOTE | 2022-01-14 10:35 | Diagnostic Imaging Report ---
PROCEDURE: CT abdomen with and without contrast. TECHNIQUE: Multiple contiguous axial CT images of the abdomen were obtained prior to and after intravenous administration of iodinated contrast. Auto Exposure Controls were utilized during the CT exam to meet ALARA standards for radiation dose reduction. INDICATION: Elevated liver function studies. This patient has a history of breast cancer. COMPARISON: 08/24/2021. FINDINGS: The right lower lobe pneumonia present on the prior exam has since resolved. Old healed left 9th rib deformity and some chronic internal herniation of fat between the 9th and 10th ribs off the left body wall into the chest are unchanged chronic findings. No site of suspicious lytic or sclerotic bony destruction. No features suggestive of bony metastasis. Bulky endplate osteophyte at T8 results in chronic severe canal stenosis. No basilar nodule. There is no liver mass. There is no intrahepatic biliary ductal dilatation. There is hydropic distention of the gallbladder. Despite its distention, its wall is at least mildly thickened given its caliber. It measures a maximal transverse dimension of 6.8 cm. Seen best on image 50 series 4 is a tiny calculus within either the gallbladder neck or proximal cystic duct. The common hepatic and common bile ducts are nondilated. The pancreas, its duct, and the peripancreatic fat are normal. The abdominal bowel loops are nonobstructed, nonfocal, and nonacute. The kidneys are unobstructed. The spleen, adrenals, and pancreas are unremarkable. There is no abdominal lymphadenopathy. IMPRESSION: 1. Hydropic distention of the at least mildly thickened gallbladder with a small calculus at the neck or cystic duct. The appearance is suspicious for cholecystitis, correlate clinically. 2. No intra or extrahepatic bile duct dilatation with a nonacute pancreas. 3. No findings of metastatic disease. 4. Chronic left lower chest wall deformities with resolution of the prior right lower lobe pneumonia. Dictated by: Dictated on workstation # [id number]
== END ==
LOC: RAD 09:15
PROVIDERS: ATTEND Family Medicine
DX: M95.4 Acquired deformity of chest and rib (principal); R74.01 Elevation of levels of liver transaminase levels; Z85.3 Personal history of malignant neoplasm of breast
CPT/HCPCS: 74170

== ENCOUNTER → 2022-01-14 | Outpatient (CLI) | payer MEDICARE ==
[~2022-01-14] MED LIST changes: -HOLD METFORMIN - RECEIVED CONTRAST 20 ML VIAL IV SCH; -IOHEXOL 350 MG/ML 100 ML (OMNIPAQUE 350) VIAL IV ONE; -NS 100 ML (IVPB) BAG IV ONE
--- NOTE | 2022-01-14 13:41 | Diagnostic Imaging Report ---
INDICATION: Left hip pain. TIME OF EXAM: 10:58 a.m. COMPARISON: Correlation is made with prior hip radiograph from 11/21/2021. FINDINGS: Postop changes of left hip are noted. Intramedullary edmundo and compression screw transfix the left hip. Hardware is intact without fracture or loosening. Normal femoroacetabular alignment is noted. Lucency through the femoral head is unchanged. Fractures involving the greater and lesser trochanters is again noted. The fracture of the greater trochanter does show some blurring of the fracture lines. There does appear to be some residual lucency at the lesser trochanter. No new abnormality is detected. There is contrast within the urinary bladder. IMPRESSION: Post-traumatic and postsurgical changes of left hip, as described. Dictated by: Dictated on workstation # [id number]
== END ==
LOC: ORTHO 10:14
PROVIDERS: ATTEND Orthopaedic Surgery
DX: M25.552 Pain in left hip (principal); Z98.890 Other specified postprocedural states
CPT/HCPCS: 73502; G0463; 99213

== ENCOUNTER → 2022-01-22 | Outpatient (CLI) | payer MEDICARE ==
[2022-01-22 13:05] LABS: BASOPHILS % (AUTO) 0 % (0-10); EOSINOPHILS % (AUTO) 0 % (0-10); HEMATOCRIT 44 % (35-52); HEMOGLOBIN 13.9 g/dL (11.5-16.0); LYMPHOCYTES # (AUTO) 1.4 10^3/uL (1.0-4.0); LYMPHOCYTES % (AUTO) 12 % (12-44); MEAN CORPUSCULAR HEMOGLOBIN 29 pg (25-34); MEAN CORPUSCULAR HGB CONC 32 g/dL (32-36); MEAN CORPUSCULAR VOLUME 92 fL (80-99); MEAN PLATELET VOLUME 9.4 fL (9.0-12.2); MONOCYTES # (AUTO) 0.8 10^3/uL (0.0-1.0); MONOCYTES % (AUTO) 7 % (0-12); NEUTROPHILS # (AUTO) 9.8 10^3/uL (1.8-7.8); NEUTROPHILS % (AUTO) 81 % (42-75); PLATELET COUNT 252 10^3/uL (130-400); WHITE BLOOD COUNT 12.1 10^3/uL (4.3-11.0)
[2022-01-22 13:26] LABS: ALBUMIN 4.3 GM/DL (3.2-4.5); BILIRUBIN,TOTAL 0.4 MG/DL (0.1-1.0); CALCIUM 9.2 MG/DL (8.5-10.1); CREATININE SERUM 1.12 MG/DL (0.60-1.30); POTASSIUM 4.3 MMOL/L (3.6-5.0)
== END ==
LOC: ONC 12:54
PROVIDERS: ATTEND Internal Medicine Hematology & Oncology
DX: Z45.2 Encounter for adjustment and management of vascular access device (principal); C50.912 Malignant neoplasm of unspecified site of left female breast; E89.0 Postprocedural hypothyroidism; I10 Essential (primary) hypertension; E78.00 Pure hypercholesterolemia, unspecified; Z96.21 Cochlear implant status; Z90.12 Acquired absence of left breast and nipple
CPT/HCPCS: 80053; 85025; G0463; 36415; 99213

== ENCOUNTER → 2022-02-07 | Outpatient (CLI) | payer MEDICARE ==
[~2022-02-07] VITALS: Ht 182.9 cm; Wt 81.8 kg
[~2022-02-07] MED LIST changes: +DILT360C30 PO; +LEVO25CA4 PO; +LOSA50TA63 PO
== END | disposition home or self-care (01) ==
LOC: PREOP 05:29
PROVIDERS: ATTEND Surgery
DX: Z01.818 Encounter for other preprocedural examination (principal)

== ENCOUNTER 2022-02-13 08:24 | Day surgery (SDC) | payer MEDICARE ==
[2022-02-13] VITALS (12 sets, daily range): BP systolic 114–169; BP diastolic 53–83
[~2022-02-13] VITALS: Ht 182.9 cm; Wt 81.8 kg
[2022-02-13] MEDS ORDERED: LACTATED RINGERS 1,000 ML IV PRN (08:30)
[2022-02-13] MEDS ORDERED: ceFAZolin 2 GM IV Premixed 50 ML IV ONE (08:30)
--- NOTE | 2022-02-13 09:02 | Progress Note-Pre Operative ---
Pre-Operative Progress Note H&P Reviewed The H&P was reviewed, patient examined and no changes noted. Date Seen by Provider: Feb 13, 2022 Time Seen by Provider: 09:00 Date H&P Reviewed: Feb 13, 2022 Time H&P Reviewed: 08:55 Pre-Operative Diagnosis: Symptomatic chronic calculous cholecystitis FARHAT MADDOX APRN Feb 13, 2022 09:02
[2022-02-13] MEDS ORDERED: HYDR-3817 PO (09:03)
--- NOTE | 2022-02-13 09:03 | Discharge Inst-Surgical ---
D/C Lap Instructions-KIDO Reconcile Patient Problems Problems Reviewed?: Yes New, Converted, or Re-Newed RX: RX on Chart Follow Up Appt in 2 weeks Activity as tolerated No driving for 24 hours No driving while on pain medications Incentive Spirometry use every 2 hours while awake Regular Diet Symptoms to Report: Fever over 101 degree F, Nausea/Vomiting Infection Signs and Symptoms to report: Increased redness, Foul odor of wound, Increased drainage Bathing instructions: May shower Operative Area Clean/Dry; Keep incision clean/dry If any problems/questions: Contact your physician or go to Emergency Room FARHAT MADDOX APRN Feb 13, 2022 09:03
[2022-02-13] MEDS ORDERED: morphine INJ 10 MG/ML 1ML (SYR OR VIAL) IVP PRN (09:15)
[2022-02-13] MEDS ORDERED: HYDROcodone/APAP 5 MG/325 MG (LORTAB) TAB PO ONE (09:15)
[2022-02-13] MEDS ORDERED: ONDANSETRON 4 MG/2 ML (SDV) Z0FRAN IVP PRN ×2 (09:15→12:30)
[2022-02-13] MEDS ORDERED: ACETAMINOPHEN 325 MG TABLET PO PRN (09:15)
[2022-02-13] MEDS ORDERED: fentaNYL INJ 100 MCG/2 ML AMP ONE (10:25)
[2022-02-13] MEDS ORDERED: proPOfol 200 MG/20 ML (DIPRIVAN) VIAL IV ONE (10:25)
[2022-02-13] MEDS ORDERED: NEOSTIGMINE 3 MG/3 ML VIAL ONE (10:25)
[2022-02-13] MEDS ORDERED: ONDANSETRON 4 MG/2 ML (SDV) Z0FRAN ONE (10:25)
[2022-02-13] MEDS ORDERED: ROCURONIUM 10 MG/ML 5 ML SYRINGE IV ONE (10:25)
[2022-02-13] MEDS ORDERED: GLYCOPYRROLATE 0.2 MG/ML (ROBINUL) 2 ML VIAL ONE (10:25)
[2022-02-13] MEDS ORDERED: LIDOCAINE PF 2% 5 ML (XYLOCAINE) VIAL ONE (10:25)
[2022-02-13] MEDS ORDERED: LIDOCAINE/EPI 2% 1:200,00 (XYLOCAINE) 20 ML VIAL ONE (11:11)
[2022-02-13] MEDS ORDERED: SEVOFLURANE (ULTANE) 15 ML INHAL SOLN ONE (12:10)
[2022-02-13] MEDS ORDERED: HYDROmorphone 2 MG/ML VIAL (DILAUDID) IV ONE (12:30)
[2022-02-13] MEDS ORDERED: morphine INJ 10 MG/ML 1ML (SYR OR VIAL) IVP ONE (12:30)
--- NOTE | 2022-02-13 12:59 | Anesthesia-General Post-Op ---
General Patient Condition Mental Status/LOC: Same as Preop Cardiovascular: Satisfactory Nausea/Vomiting: Absent Respiratory: Satisfactory Pain: Controlled Complications: Absent Post Op Complications Complications None Follow Up Care/Instructions Patient Instructions None needed. Anesthesia/Patient Condition Patient Condition Patient is doing well, no complaints, stable vital signs, no apparent adverse anesthesia problems. ZECHARIAH LAO DO Feb 13, 2022 12:59
[2022-02-13] MEDS ORDERED: HYDROcodone/APAP 5 MG/325 MG (LORTAB) TAB ONE (13:22)
--- NOTE | 2022-02-13 15:04 | Progress Note-Post Operative ---
Post-Operative Progess Note Surgeon (s)/Director Surface Transportation (s) Surgeon JIMI FAIR MD Director Surface Transportation: zacarias hardin RN SUPPORT SERVICES Pre-Operative Diagnosis Symptomatic chronic calculous cholecystitis Post-Operative Diagnosis same Procedure & Operative Findings Date of Procedure 02/13/22 Procedure Performed/Findings laparoscopic cholecystectomy Anesthesia Type get Estimated Blood Loss Estimated blood loss (mL): minimal Specimens/Packing Specimens Removed gallbladder JIMI FAIR MD Feb 13, 2022 15:04
--- NOTE | 2022-02-13 19:18 | OPERATIVE REPORT ---
DATE OF SERVICE: 02/13/2022 ATTENDING PRIMARY CARE PHYSICIAN: Luciano Olson DO PREOPERATIVE DIAGNOSIS: Symptomatic chronic calculous cholecystitis. POSTOPERATIVE DIAGNOSIS: Symptomatic chronic calculous cholecystitis. PROCEDURE: Laparoscopic cholecystectomy. SURGEON: Jimi Fair MD AUTOMOTIVE COLLISION ESTIMATOR: Chaitanya Demarco APRN ANESTHESIA: General endotracheal. ESTIMATED BLOOD LOSS: Minimal. FINDINGS: Distended gallbladder as well as gallbladder wall thickening, multiple gallstones. DISPOSITION: The patient tolerated the procedure well. INDICATIONS: The patient is a 71-year-old female, who has had several year history of pain in the epigastric as well as right upper abdominal quadrant, which she thought was acid indigestion. She states that this increased in severity as well as number in the past several months. An ultrasound was performed, which showed a distended gallbladder, gallstones as well as gallbladder wall thickening. DESCRIPTION OF PROCEDURE: The patient was brought to the operating room, laid supine on the table. After adequate IV pain and sedative medications and general endotracheal intubation, the abdomen was prepped and draped in standard surgical fashion. A 0.5% Marcaine with epinephrine was used to anesthetize overlying skin left upper abdominal quadrant and transverse skin incision made using a 15 blade. An 0 silk suture was applied to the medial aspect incision for retraction and a Veress needle inserted with low opening pressure of 0 mmHg and the abdomen was then insufflated to 15 mmHg pressure. The Veress needle removed and a 5 mm XL trocar placed followed by a 5 mm 45-degree angle laparoscope visualizing the peritoneal cavity. A 4-quadrant abdominal exploration was performed. There was a distended gallbladder as well as signs of chronic inflammation. Under direct visualization, we then proceeded to place a supraumbilical 10 mm port after the skin and peritoneal lining were anesthetized using 0.5% Marcaine with epinephrine and a transverse skin incision made using 15-blade. In a similar manner, a right upper abdominal quadrant 5 mm port was placed. The patient was then placed in reverse Trendelenburg position as well as plane right side up, left side down. The gallbladder was decompressed with a laparoscopic needle and suction. The fundus of the gallbladder was then retracted anteriorly and superiorly and the omental adhesions were then taken down using blunt dissection as well as electrocautery on the hook instrument. The hepatoduodenal ligament was then dissected with electrocautery as well as blunt dissection using the hook instrument as well as a [place] dissector identifying the critical view of safety including the triangle of Calot as well as the cystic duct and artery as the only two structures going into the gallbladder as well as the cystic plate behind the proximal gallbladder. A timeout was then taken and the cystic duct and artery were then clipped proximally, distally and cut with EndoShears. Gallbladder was dissected off the liver bed using electrocautery and hook instrument with visualization of good hemostasis as well as no leaking ducts of Luschka. The gallbladder was removed through the 10 mm port site using an EndoCatch bag. The 10 mm port site fascia and peritoneum were then closed under direct visualization using a Jean Carlos-Jerry device and 0 Vicryl suture. The abdomen was desufflated and remaining ports removed. All skin incisions were closed using 4-0 Monocryl running subcuticular sutures. Wounds were then cleaned and covered with Dermabond. The patient tolerated the procedure well. We will start IV normal pain medication as well as a clear liquid diet. When she is tolerating clears, has good pain control with oral pain medications, ambulating well, we will discharge her home where she will be instructed to do no heavy lifting or exertion for the next two weeks. Job ID: [id number] DocumentID: [id number] Dictated Date: 02/13/2022 13:02:19 Night Time Babysitter Date: 02/13/2022 19:17:44 Dictated By: JIMI FAIR MD
== END 2022-02-13 15:25 ==
LOC: SDC 08:24
PROVIDERS: ATTEND Surgery
DX: K80.10 Calculus of gallbladder with chronic cholecystitis without obstruction (principal)
CPT/HCPCS: 87081; 88304; 94664

== ENCOUNTER → 2022-02-25 | Outpatient (CLI) | payer MEDICARE ==
[~2022-02-25] MED LIST changes: +HYDR-3817 PO
== END ==
LOC: ORTHO 11:05
PROVIDERS: ATTEND Orthopaedic Surgery
DX: M25.552 Pain in left hip (principal)
CPT/HCPCS: 99213

== ENCOUNTER → 2022-04-01 | Outpatient (CLI) | payer MEDICARE | LOC: ORTHO 10:22 | PROVIDERS: ATTEND Orthopaedic Surgery | DX: M25.552 Pain in left hip (principal) | CPT/HCPCS: 99213 ==

== ENCOUNTER 2022-04-10 14:08 | Outpatient (RCR) | payer MEDICARE | END 2022-04-15 | disposition home or self-care (01) | PROVIDERS: ATTEND Orthopaedic Surgery | DX: M25.552 Pain in left hip (principal); I10 Essential (primary) hypertension ==

== ENCOUNTER 2022-05-13 13:49 | Outpatient (RCR) | payer MEDICARE | END 2022-05-15 | disposition home or self-care (01) | PROVIDERS: ATTEND Orthopaedic Surgery | DX: M25.552 Pain in left hip (principal); I10 Essential (primary) hypertension ==

== ENCOUNTER 2022-05-16 14:10 | Outpatient (RCR) | payer MEDICARE | END 2022-06-15 | disposition home or self-care (01) | PROVIDERS: ATTEND Orthopaedic Surgery | DX: M25.552 Pain in left hip (principal) ==

== ENCOUNTER → 2022-05-20 | Outpatient (CLI) | payer MEDICARE ==
--- NOTE | 2022-05-20 16:15 | Diagnostic Imaging Report ---
Indication: Left hip pain. Time of Exam: 2:45 PM Intramedullary edmundo and compression screw transfix a left hip. Lucency through the left femoral head is similar to prior study. Femoral acetabular alignment is maintained. Greater trochanter fracture appears to be healing with blurring of fracture lines. The lesser trochanter fracture appears about the same. Hardware is intact. Impression: Postop changes left hip, as described. Dictated by: Dictated on workstation # [id number]
== END ==
LOC: ORTHO 14:30
PROVIDERS: ATTEND Orthopaedic Surgery
DX: M25.552 Pain in left hip (principal); I10 Essential (primary) hypertension; E78.00 Pure hypercholesterolemia, unspecified; E03.9 Hypothyroidism, unspecified; Z87.81 Personal history of (healed) traumatic fracture; Z98.890 Other specified postprocedural states
CPT/HCPCS: 73502; G0463; 99213

== ENCOUNTER → 2022-07-01 | Outpatient (CLI) | payer MEDICARE ==
--- NOTE | 2022-07-01 17:07 | Diagnostic Imaging Report ---
INDICATION: Postmenopausal screening COMPARISON: 02/22/2019 FINDINGS: AP Spine L1-L4: [BMD (g/cm2): 1.410] [T-Score: 1.7] [Z-Score: 3.1] [BMD Previous: 1.371] [BMD % Change: 2.8] LT Hip Neck: [BMD (g/cm2): NA] [T-Score: NA] [Z-Score: NA] LT Hip Total: [BMD (g/cm2):NA] [T-Score:NA] [Z-Score: NA] [BMD Previous: NA] [BMD % Change: NA] RT Hip Neck: [BMD (g/cm2):0.937] [T-Score:-0.7] [Z-Score:0.9] RT Hip Total: [BMD (g/cm2):0.951] [T-score:-0.5] [Z-Score:0.9] [BMD Previous:0.929] [BMD % Change:2.4] *Indicates significant change from prior examination based on 95% confidence level. World Health Organization criteria for BMD interpretation classify patients as Normal (T-score at or above -1.0), Osteopenic (T-score between -1.0 and -2.5) or Osteoporotic (T-score at or below -2.5). LIMITATIONS AND MODIFICATION: None. FRACTURE RISK (FRAX SCORE): The ten year probability of (%): Major Osteoporotic Fracture: [NA] Hip Fracture: [NA] IMPRESSION: 1. Normal bone mineral density. 2. Due to differences in equipment utilized between examinations, direct quantitative comparison is not possible to assess for interval change in bone mineral density. 3. See below National Osteoporosis Foundation guidelines on when to potentially initiate pharmacologic therapy. Based on the National Osteoporosis Foundation Guidelines, pharmacologic treatment should be initiated in any of the following, unless clinical conditions suggest otherwise: * Any patient with prior fragility fracture of the hip or vertebrae. A spine fracture indicates 5X risk for subsequent spine fracture and 2X risk for subsequent hip fracture. * Osteoporosis (T-score <-2.5). * Postmenopausal women and men age 50 and older with low bone mass/osteopenia (T-score between -1.0 and -2.5) by DXA and 10-year major osteoporotic fracture greater than 20% or a 10-year probability of hip fracture greater than 3%. These fracture risks are supplied above in the FRAX score, if applicable. * Clinician judgement and/or patient preferences may indicate treatment for people with 10-year fracture probabilities above or below these levels. Dictated by: Dictated on workstation # [id number]
== END ==
LOC: RAD 14:00
PROVIDERS: ATTEND Family Medicine
DX: M81.0 Age-related osteoporosis without current pathological fracture (principal); Z78.0 Asymptomatic menopausal state
CPT/HCPCS: 77080

== ENCOUNTER → 2022-07-02 | Outpatient (CLI) | payer MEDICARE ==
--- NOTE | 2022-07-02 18:16 | Diagnostic Imaging Report ---
PROCEDURE: US Thyroid. TECHNIQUE: Multiple real-time grayscale images were obtained of the thyroid in various projections. INDICATION: Thyroid nodule follow-up. Increased free T3 and T4. COMPARISON: 11/21/2020. FINDINGS: Right thyroid lobe: Removed. No residual tissue is seen. Isthmus: Size (cm): 0.2 Nodules: There is a 1.4 cm solid hypoechoic nodule which is stable in size since the prior study. Left thyroid lobe: Size (cm): 6.5 x 3.0 x 3.6 Echotexture: Heterogeneous Vascularity: Normal Nodules: There is a large heterogeneous 5.8 x 2.9 x 3.2 cm nodule in the left thyroid. This appears mildly hypoechoic. This measured 5.8 x 3.0 x 3.0 cm on 11/21/2020. IMPRESSION: 1. Large heterogeneous solid nodule in the left thyroid, and solid nodule in the left isthmus, are both stable in size since November 2020. 2. The larger nodule has previously been biopsied. Continued annual sonographic follow-up of the isthmus nodule is indicated by TI-RADS criteria. Dictated on workstation # [id number]
== END ==
LOC: RAD 14:45
PROVIDERS: ATTEND Family Medicine
DX: E04.2 Nontoxic multinodular goiter (principal)
CPT/HCPCS: 76536

== ENCOUNTER → 2022-07-03 | Outpatient (CLI) | payer MEDICARE ==
--- NOTE | 2022-07-04 16:58 | Diagnostic Imaging Report ---
Exam: Nuclear medicine thyroid imaging and uptake. Date: July 04, 2022. Indication: 71-year-old female, abnormal thyroid function tests. History of thyroid nodule. History of right thyroidectomy. Comparison: Ultrasound thyroid July 02, 2022. Findings: 204 ?Ci of I-123 was administered. Subsequent scintigraphic images of the thyroid were obtained in multiple projections. 4 and 24-hour thyroid uptake rise were obtained. 4 hour thyroid uptake is calculated at 1.6%. 24-hour thyroid uptake is calculated at 2.1%. Normal range for uptake at 4-6 hours (5-20%). Normal range of uptake at 24 hours (10-35%). There is no identified radiotracer avid thyroid nodule. There is no identified radiotracer uptake to the right of midline. Impression: 1. Very low level thyroid uptake. Recommend correlation with laboratory analysis. 2. No identified iodine avid thyroid nodule to specifically diagnose a benign nodule. Previously noted left thyroid nodules on prior ultrasound are not aided in diagnostic assessment on the basis of this exam. Dictated by: Dictated on workstation # [id number]
== END ==
LOC: CARD 10:04
PROVIDERS: ATTEND Family Medicine
DX: E04.2 Nontoxic multinodular goiter (principal); E89.0 Postprocedural hypothyroidism
CPT/HCPCS: 78014; A9516

== ENCOUNTER → 2022-09-23 | Outpatient (CLI) | payer MEDICARE ==
[~2022-09-23] MED LIST changes: +POTA-177 PO; -POTA10TA37 PO
== END ==
LOC: ORTHO 14:49
PROVIDERS: ATTEND Orthopaedic Surgery
DX: M25.551 Pain in right hip (principal); Z87.81 Personal history of (healed) traumatic fracture
CPT/HCPCS: 99213

== ENCOUNTER 2022-11-13 15:49 | Outpatient (RCR) | payer MEDICARE | END 2022-11-15 | disposition home or self-care (01) | PROVIDERS: ATTEND Orthopaedic Surgery | DX: R26.89 Other abnormalities of gait and mobility (principal) ==

== ENCOUNTER 2022-12-11 12:55 | Outpatient (RCR) | payer MEDICARE | END 2022-12-16 | disposition home or self-care (01) | PROVIDERS: ATTEND Orthopaedic Surgery | DX: R26.89 Other abnormalities of gait and mobility (principal) ==

== ENCOUNTER 2023-01-09 14:31 | Outpatient (RCR) | payer MEDICARE | END 2023-01-09 16:04 | disposition home or self-care (01) | PROVIDERS: ATTEND Orthopaedic Surgery | DX: R26.89 Other abnormalities of gait and mobility (principal); R53.1 Weakness ==

== ENCOUNTER → 2023-05-28 | Outpatient (CLI) | payer MEDICARE ==
[~2023-05-28] MED LIST changes: +DILT360C22 PO; -DILT360C30 PO; +TIMO5DRO16 OU; -TIMO5DRO5 OU
--- NOTE | 2023-05-28 16:19 | Diagnostic Imaging Report ---
INDICATION: Routine screening. Comparison is made with prior mammogram from 01/14/2022 and 01/11/2021. 2-D and 3-D bilateral screening mammography was performed with CAD. Scattered fibroglandular densities are identified bilaterally. Postoperative changes in the left breast with dystrophic calcifications appear stable. The retroareolar benign nodule on the left appears stable. There are scattered benign calcifications in both breasts. No new mass or malignant-appearing microcalcifications are identified. Axillae are unremarkable. IMPRESSION: No mammographic features suspicious for malignancy are identified. ACR BI-RADS Category 2: Benign findings. Result letter will be mailed to the patient. Note: At least 10% of breast cancer is not imaged by mammography. BI-RADS Category 2 Dictated by: Dictated on workstation # [id number]
== END ==
LOC: RAD 11:13
PROVIDERS: ATTEND Family Medicine
DX: Z12.31 Encounter for screening mammogram for malignant neoplasm of breast (principal)
CPT/HCPCS: 77063; 77067

== ENCOUNTER → 2023-06-30 | Day surgery (SDC) | payer MEDICARE ==
[~2023-06-30] VITALS: Ht 171.4 cm; Wt 79.5 kg
[~2023-06-30] MED LIST changes: +CALC-69 PO; +FLEC50TA PO; +LEVO13CA4 PO; +METO50TA7 PO; +MTP100TCR PO; +NS IV 1000 ML 1,000 ML IV SCH; +NS IV 1000 ML 1,000 ML ONE; +proPOfol 200 MG/20 ML (DIPRIVAN) VIAL IV ONE
[2023-06-30 12:00] VITALS: BP 152/88
[2023-06-30 12:03] LABS: HEMATOCRIT 41 % (35-52); HEMOGLOBIN 13.5 g/dL (11.5-16.0); MEAN CORPUSCULAR HEMOGLOBIN 31 pg (25-34); MEAN CORPUSCULAR HGB CONC 33 g/dL (32-36); MEAN CORPUSCULAR VOLUME 94 fL (80-99); MEAN PLATELET VOLUME 9.5 fL (9.0-12.2); PLATELET COUNT 179 10^3/uL (130-400); WHITE BLOOD COUNT 8.2 10^3/uL (4.3-11.0)
[2023-06-30 12:17] LABS: INR 1.8 (0.8-1.4); PROTHROMBIN TIME PATIENT 21.2 SEC (12.2-14.7)
[2023-06-30 12:22] LABS: ALBUMIN 4.4 GM/DL (3.2-4.5); BILIRUBIN,TOTAL 0.6 MG/DL (0.1-1.0); CALCIUM 10.4 MG/DL (8.5-10.1); CREATININE SERUM 0.96 MG/DL (0.60-1.30); POTASSIUM 4.2 MMOL/L (3.6-5.0); TOTAL PROTEIN 6.7 GM/DL (6.4-8.2)
--- NOTE | 2023-06-30 12:56 | Anesthesia-General Post-Op ---
MAC Patient Condition Mental Status/LOC: Same as Preop Cardiovascular: Satisfactory Nausea/Vomiting: Absent Respiratory: Satisfactory Pain: Controlled Complications: Absent Post Op Complications Complications None Follow Up Care/Instructions Patient Instructions None needed. Anesthesiology Discharge Order Discharge Order Patient is doing well, no complaints, stable vital signs, no apparent adverse anesthesia problems. No complications reported per nursing. DUSTIN KAYE CRNA Jun 30, 2023 12:56
--- NOTE | 2023-06-30 20:03 | OPERATIVE REPORT ---
DATE OF SERVICE: 06/30/2023 PREOPERATIVE DIAGNOSIS: Atrial fibrillation. POSTOPERATIVE DIAGNOSIS: Sinus rhythm. PROCEDURE: External electrical cardioversion. The patient is a 72-year-old lady with paroxysmal atrial fibrillation, who is awaiting atrial fibrillation ablation. Her blanket winder helper, Dr. Irvin, has started on flecainide and has advised external electrical cardioversion to restore sinus rhythm. This was carried out today after having obtained an informed consent. She is on uninterrupted oral anticoagulation for several months. The nurse supplier quality engineering manager provided short-acting anesthesia. We gave 120 joules of synchronized shock delivered through external patches. This converted atrial fibrillation to sinus rhythm and she tolerated the procedure well. Job ID: [id number] DocumentID: [id number] Dictated Date: 06/30/2023 13:25:20 Director Enterprise Data Architecture Date: 06/30/2023 20:01:00 Dictated By: YUNIOR VICTOR MD; NEGRITA; FACP; JOHNNYC; GRACIELA
== END ==
LOC: CATH 11:05
PROVIDERS: ATTEND Internal Medicine Cardiovascular Disease
DX: I48.0 Paroxysmal atrial fibrillation (principal); R07.9 Chest pain, unspecified; I49.5 Sick sinus syndrome; I10 Essential (primary) hypertension; R22.40 Localized swelling, mass and lump, unspecified lower limb; I87.2 Venous insufficiency (chronic) (peripheral); E03.9 Hypothyroidism, unspecified; E78.2 Mixed hyperlipidemia; Z79.01 Long term (current) use of anticoagulants; Z79.899 Other long term (current) drug therapy; Z79.890 Hormone replacement therapy
CPT/HCPCS: 36415; 80053; 80061; 85027; 85610; 85730; 87081; 92960; 93005

== ENCOUNTER → 2023-07-31 | Outpatient (CLI) | payer MEDICARE ==
[~2023-07-31] MED LIST changes: -NS IV 1000 ML 1,000 ML IV SCH; -NS IV 1000 ML 1,000 ML ONE; -proPOfol 200 MG/20 ML (DIPRIVAN) VIAL IV ONE
--- NOTE | 2023-07-31 16:56 | Diagnostic Imaging Report ---
EXAMINATION: US Thyroid. TECHNIQUE: Multiple real-time grayscale images were obtained of the thyroid in various projections. HISTORY: Thyroid nodule follow-up COMPARISON: 07/02/2022 FINDINGS: The right lobe of the thyroid gland is surgically absent. There is a small focus of residual thyroid tissue measuring 2.2 x 0.8 x 0.9 cm. The left lobe of the thyroid measures 6.0 x 2.8 x 3.5 cm. The left lobe contains a stable 5.4 cm solid, mixed isoechoic and hypoechoic, wider than tall nodule with smooth margins. The isthmus measures 0.4 cm. There is a 1.7 cm solid, isoechoic, wider than tall nodule with smooth margins. No suspicious adenopathy within the visualized neck. IMPRESSION: 1. Stable solid left thyroid nodule measuring up to 5.4 cm, TI-RADS 4. 2. Stable 1.7 cm solid nodule within the thyroid isthmus. TI-RADS 3. 3. Findings suggestive of residual thyroid tissue within the right thyroidectomy bed measuring up to 2.2 x 0.8 x 0.9 cm. TI-RADS 1: Benign No FNA or follow-up required TI-RADS 2: Not Suspicious No FNA or follow-up required TI-RADS 3: Mildly Suspicious FNA if ? 2.5 cm Follow if ? 1.5 cm (At 1, 3 and 5 years from initial scan) TI-RADS 4: Moderately Suspicious FNA if ? 1.5 cm Follow if ? 1 cm (At 1, 2, 3 and 5 years from initial scan) TI-RADS 5: Highly Suspicious FNA if ? 1 cm Follow if ? 0.5 cm (Annually for 5 years from initial scan) Dictated by: Dictated on workstation # [id number]
== END ==
LOC: RAD 09:31
PROVIDERS: ATTEND Otolaryngology Otolaryngology/Facial Plastic Surgery
DX: E04.1 Nontoxic single thyroid nodule (principal)
CPT/HCPCS: 76536

== ENCOUNTER → 2023-08-11 | Outpatient (CLI) | payer MEDICARE | LOC: CARD 12:28 | PROVIDERS: ATTEND Internal Medicine Cardiovascular Disease | DX: I48.0 Paroxysmal atrial fibrillation (principal) | CPT/HCPCS: 93225; 93226 ==

== ENCOUNTER → 2023-09-22 | Outpatient (CLI) | payer MEDICARE ==
[~2023-09-22] MED LIST changes: +CATHETER FLUSH 10 ML SYR IVP PRN; +REGADENOSON 0.4 MG/5 ML SYR IV ONE
[2023-09-22 09:29] VITALS: BP 201/76
--- NOTE | 2023-09-24 10:15 | STRESS TEST ---
DATE OF SERVICE: 09/22/2023 RESTING AND POST REGADENOSON TECHNETIUM-99M TETROFOSMIN SPECT CT IMAGING ORDERING PHYSICIAN: Dayron Crawley M.D.; NEGRITA; MYA; PREETHI; PRIMARY PHYSICIAN: Luciano Olson DO CLINICAL DIAGNOSIS: Paroxysmal atrial fibrillation. Baseline images were carried out after injection of 10.9 mCi of technetium-99m tetrofosmin. This was followed by 0.4 mg of regadenoson and 31.2 mCi of technetium-99m tetrofosmin for stress imaging. The electrocardiogram showed sinus rhythm at baseline. It did not change significantly with the regadenoson infusion. The patient tolerated the procedure well. Review of images at rest and following stress does not indicate any distinct perfusion defects consistent with significant myocardial ischemia or infarction. Some degree of breast attenuation is seen both at rest and following regadenoson infusion. Gated images show normal global left ventricular systolic function with normal regional wall motion. Left ventricular ejection fraction is calculated to be 75%. CONCLUSIONS: 1. No evidence of any significant myocardial ischemia or infarction on this study. 2. Normal regional wall motion. 3. Normal global left ventricular systolic function with a calculated ejection fraction of 75%. Job ID: [id number] DocumentID: [id number] Dictated Date: 09/24/2023 09:42:31 Auto Machinist Date: 09/24/2023 10:12:00 Dictated By: DAYRON CRAWLEY MD; NEGRITA; MYA; PREETHI;
== END ==
LOC: CARD 07:39
PROVIDERS: ATTEND Internal Medicine Cardiovascular Disease
DX: I48.0 Paroxysmal atrial fibrillation (principal)
CPT/HCPCS: 78452; 93017; A9502

== ENCOUNTER → 2023-10-15 | Outpatient (CLI) | payer MEDICARE ==
[~2023-10-15] MED LIST changes: -CATHETER FLUSH 10 ML SYR IVP PRN; -REGADENOSON 0.4 MG/5 ML SYR IV ONE
[2023-10-15 14:08] LABS: HEMATOCRIT 41 % (35-52); HEMOGLOBIN 13.2 g/dL (11.5-16.0); MEAN CORPUSCULAR HEMOGLOBIN 30 pg (25-34); MEAN CORPUSCULAR HGB CONC 32 g/dL (32-36); MEAN CORPUSCULAR VOLUME 94 fL (80-99); MEAN PLATELET VOLUME 9.4 fL (9.0-12.2); PLATELET COUNT 198 10^3/uL (130-400); WHITE BLOOD COUNT 8.7 10^3/uL (4.3-11.0)
[2023-10-15 14:28] LABS: CALCIUM 10.1 MG/DL (8.5-10.1); CREATININE SERUM 0.92 MG/DL (0.60-1.30); MAGNESIUM 2.1 MG/DL (1.6-2.4); POTASSIUM 3.9 MMOL/L (3.6-5.0)
== END ==
LOC: LAB 13:50
PROVIDERS: ATTEND Internal Medicine Cardiovascular Disease
DX: I49.5 Sick sinus syndrome (principal); I48.19 Other persistent atrial fibrillation; I10 Essential (primary) hypertension; E78.5 Hyperlipidemia, unspecified
CPT/HCPCS: 36415; 80048; 83735; 85027